=== PATIENT | female | born 1945 | race Caucasian/White ===

== ENCOUNTER → 2017-03-05 | Outpatient (CLI) | payer MEDICARE, OTHER ==
--- NOTE | 2017-03-05 09:23 | MR ---
EXAMINATION TYPE: MR brain wo con DATE OF EXAM: 03/05/2017 8:47 AM COMPARISON: Prior MRI brain July 22, 2016. HISTORY: abnormal findings, dizziness TECHNIQUE: Multiplanar, multisequence imaging of the brain and brainstem is performed without IV cont rast. FINDINGS: Diffusion weighted images demonstrate no evidence of a recent infarct or other diffusion abnormality. There is no extraaxial fluid collection or significant white matter signal abnormality. There is rede monstration of mild diffuse hydrocephalus not significantly changed from prior study. No significant sulcal effacement is seen. Degree of ventricular dilatation is stable. Fourth ventricle is not dilate d. The brain volume is age appropriate. Midline structures demonstrate persistent moderate atrophy of the posterior body and splenium of the corpus callosum. The craniocervical junction appears within normal limits. Normal vascular flow void s are present. The visualized sinuses are clear and the globes are intact. IMPRESSION: Mild diffuse hydrocephalus is not significantly changed from prior study. No significant new finding is seen.
== END | disposition home or self-care (01) ==
LOC: RADMRIMAIN 07:55
PROVIDERS: ATTEND Psychiatry & Neurology Neurology
DX: R93.8 Abnormal findings on diagnostic imaging of other specified body structures (principal)
CPT/HCPCS: 70551

== ENCOUNTER 2017-03-08 18:07 | Emergency (ER) | payer MEDICARE, OTHER ==
[2017-03-08] MEDS ORDERED: methylPREDNISolone SOD SUCCI 125 MG/2 ML VIAL IV STA (19:03)
[2017-03-08] MEDS ORDERED: IPRATROPIUM-ALBUTEROL 3 ML NEB INHALATION STA (19:04)
[2017-03-08] MEDS ORDERED: ACETAMINOPHEN TAB 325 MG TAB PO STA (19:21)
--- NOTE | 2017-03-08 19:28 | ED ---
General Adult HPI - General Chief complaint: Fever Stated complaint: cough,fever Source: patient Mode of arrival: ambulatory Limitations: no limitations - History of Present Illness Initial comments: 71-year-old female with past medical history of developmental delay presented for evaluation of fever and nonproductive cough since evening. Her sister states that they haven't taken her temperature home but that she has subjectively been complaining of fevers and chills with uncontrolled shaking and feeling very hot. There is also an associated headache and a cough is nonproductive. She's been taking 2 breathing treatments today without any improvement. She has asthma follows up with Dr. Ramirez. She denies any chest pain, nausea, vomiting, abdominal pain, diarrhea, dysuria. - Related Data Home Medications Medication Instructions Recorded Confirmed ALPRAZolam [Xanax] 0.25 mg PO Q8HR 12/14/14 03/08/17 Alendronate Sodium [Fosamax] 70 mg PO SA 12/14/14 03/08/17 Cholecalciferol [Vitamin D3] 1,000 unit PO AC-SUPPER 12/14/14 03/08/17 Furosemide [Lasix] 20 mg PO DAILY 12/14/14 03/08/17 Hydrocodone/Acetaminophen [[place] 1 tab PO Q4HR PRN 12/14/14 03/08/17 5-325] Meclizine [Antivert] 25 mg PO TID 12/14/14 03/08/17 Montelukast Sodium [Singulair] 10 mg PO HS 12/14/14 03/08/17 metFORMIN HCL [Glucophage] 500 mg PO DAILY PRN 12/14/14 03/08/17 Aspirin [Adult Low Dose Aspirin EC] 81 mg PO HS 02/12/16 03/08/17 Albuterol Nebulized [Ventolin 2.5 mg INHALATION RT-QID PRN 06/18/16 03/08/17 Nebulized] Atorvastatin [Lipitor] 20 mg PO HS 06/18/16 03/08/17 Omeprazole [PriLOSEC] 40 mg PO AC-SUPPER 06/18/16 03/08/17 Salmeterol Xinafoate [Serevent 1 puff INHALATION RT-BID 06/18/16 03/08/17 Diskus] Previous Rx's Medication Instructions Recorded Lisinopril [Zestril] 5 mg PO DAILY #30 tab 12/17/14 Doxycycline Hyclate [Vibramycin] 100 mg PO BID #20 cap 03/08/17 Allergies Allergy/AdvReac Type Severity Reaction Status Date / Time latex Allergy Rash/Hives Verified 03/08/17 19:20 sulfamethoxazole Allergy Unknown Verified 03/08/17 19:20 [From Bactrim] trimethoprim [From Bactrim] Allergy Unknown Verified 03/08/17 19:20 Review of Systems ROS Statement: Those systems with pertinent positive or pertinent negative responses have been documented in the HPI. ROS Other: All systems not noted in ROS Statement are negative. Constitutional: Denies: fever, chills Eyes: Denies: eye pain, vision change ENT: Reports: throat pain. Denies: ear pain, dental pain Respiratory: Reports: cough, dyspnea, wheezes. Denies: hemoptysis, stridor Cardiovascular: Denies: chest pain, palpitations Endocrine: Denies: fatigue, polydipsia, polyuria Gastrointestinal: Denies: abdominal pain, nausea, vomiting Genitourinary: Denies: urgency, dysuria Musculoskeletal: Denies: back pain, arthralgia Skin: Denies: rash, lesions Neurological: Denies: headache, weakness Past Medical History Past Medical History: Asthma, Diabetes Mellitus, GERD/Reflux, Hyperlipidemia, Hypertension Additional Past Medical History / Comment(s): 12/14/14 Past medical hx obtained thru medical records and pt's sisters as well as pt herself. Pt presented to [facility] ER with l/o L sided breast chest pain. Pain started this AM and pt's sister states. pt was pale as well. Pain waxed and waned. Discomfort increased with exertion however also increased with position changes at times. Pt had mild nausea. Other HX: NIDDM, vertigo, developmentally. delayed History of Any Multi-Drug Resistant Organisms: None Reported Past Surgical History: Appendectomy, Hysterectomy, Joint Replacement Additional Past Surgical History / Comment(s): bilateral knee replacement, bilateral carpal tunnel, tumor removed right thigh Past Anesthesia/Blood Transfusion Reactions: No Reported Reaction Additional Past Anesthesia/Blood Transfusion Reaction / Comment(s): Pt "alittle slow to wake up." Pt has never recieved blood. Past Psychological History: Anxiety Additional Psychological History / Comment(s): Pt is developementally delayed. Smoking Status: Never smoker Past Alcohol Use History: None Reported Past Drug Use History: None Reported - Past Family History Sister(s) Family Medical History: Cancer Additional Family Medical History / Comment(s): colon, lung, stomach Father Family Medical History: Coronary Artery Disease (CAD) Additional Family Medical History / Comment(s): Father at age 87yrs. He had an enlarged heart. Mother Family Medical History: Coronary Artery Disease (CAD) Additional Family Medical History / Comment(s): Mother at age 83yrs. She had an enlarged heart as well. General Exam Limitations: no limitations General appearance: alert, in no apparent distress Head exam: Present: atraumatic, normocephalic, normal inspection Eye exam: Present: normal appearance, PERRL, EOMI. Absent: scleral icterus, conjunctival injection, periorbital swelling ENT exam: Present: normal exam, mucous membranes moist Neck exam: Present: normal inspection. Absent: tenderness, meningismus, lymphadenopathy Respiratory exam: Present: normal lung sounds bilaterally, wheezes. Absent: respiratory distress, rales, rhonchi, stridor Cardiovascular Exam: Present: regular rate, normal rhythm, normal heart sounds. Absent: systolic murmur, diastolic murmur, rubs, gallop, clicks GI/Abdominal exam: Present: soft, normal bowel sounds. Absent: distended, tenderness, guarding, rebound, rigid Rectal exam: Present: deferred Extremities exam: Present: normal inspection, full ROM, normal capillary refill. Absent: tenderness, pedal edema, joint swelling, calf tenderness Back exam: Present: normal inspection Neurological exam: Present: alert, oriented X3, CN II-XII intact Psychiatric exam: Present: normal affect, normal mood Skin exam: Present: warm, dry, intact, normal color. Absent: rash Course Vital Signs 03/08/17 03/08/17 03/08/17 18:23 18:41 19:54 Temperature 102.0 F H Pulse Rate 96 100 Respiratory 18 20 Rate Blood Pressure 189/79 O2 Sat by Pulse 97 Oximetry 03/08/17 20:06 Temperature Pulse Rate 100 Respiratory Rate Blood Pressure O2 Sat by Pulse Oximetry EKG Findings - EKG Comments: EKG Findings:: Normal sinus rhythm with a ventricular rate of 92, SABRINA 148, QRS 94, QT/QTC 352/435. Medical Decision Making - Medical Decision Making 71-year-old female presented for evaluation of nonproductive cough and fevers for the last few days. She has a past medical history of asthma as well. On physical examination she has mild wheezes bilaterally but otherwise no significant abnormalities. Concern for influenza versus RSV given her sore throat versus pneumonia. We'll obtain labs, EKG, chest x-ray, and provide breathing treatments. And steroids. Tylenol provided for fever. Labs revealed no significant abnormalities and chest x-ray showed no acute process. The patient was reevaluated and had improvement in her symptoms following breathing treatment. She was informed of these results and through shared decision making it was determined that should be discharged with instructions to follow-up with her primary care physician and her telephony engineer Dr. Ramirez. She is further advised to return to this facility if her symptoms should worsen or persist. The patient and her sister acknowledged an understanding of this information and agreed with this plan of care. - Lab Data Result diagrams: 03/08/17 19:20 03/08/17 19:20 Lab Results 03/08/17 03/08/17 03/08/17 Range/Units 19:20 19:20 19:20 WBC 12.9 H (3.8-10.6) k/uL RBC 4.05 (3.80-5.40) m/uL Hgb 12.3 (11.4-16.0) gm/dL Hct 36.8 (34.0-46.0) % MCV 90.9 (80.0-100.0) fL MCH 30.5 (25.0-35.0) pg MCHC 33.5 (31.0-37.0) g/dL RDW 13.2 (11.5-15.5) % Plt Count 242 (150-450) k/uL Neutrophils % 85 % Lymphocytes % 8 % Monocytes % 4 % Eosinophils % 2 % Basophils % 0 % Neutrophils # 11.0 H (1.3-7.7) k/uL Lymphocytes # 1.1 (1.0-4.8) k/uL Monocytes # 0.5 (0-1.0) k/uL Eosinophils # 0.2 (0-0.7) k/uL Basophils # 0.0 (0-0.2) k/uL Sodium 138 (137-145) mmol/L Potassium 4.5 (3.5-5.1) mmol/L Chloride 105 (98-107) mmol/L Carbon Dioxide 24 (22-30) mmol/L Anion Gap 9 mmol/L BUN 17 (7-17) mg/dL Creatinine 0.52 (0.52-1.04) mg/dL Est GFR (MDRD) Af Amer >60 (>60 ml/min/1.73 sqM) Est GFR (MDRD) Non-Af >60 (>60 ml/min/1.73 sqM) Glucose 112 H (74-99) mg/dL Calcium 9.4 (8.4-10.2) mg/dL Influenza Type A RNA Not Detected (Not Detectd) Influenza Type B (PCR) Not Detected (Not Detectd) Group A Strep Rapid (Negative) 03/08/17 Range/Units 19:20 WBC (3.8-10.6) k/uL RBC (3.80-5.40) m/uL Hgb (11.4-16.0) gm/dL Hct (34.0-46.0) % MCV (80.0-100.0) fL MCH (25.0-35.0) pg MCHC (31.0-37.0) g/dL RDW (11.5-15.5) % Plt Count (150-450) k/uL Neutrophils % % Lymphocytes % % Monocytes % % Eosinophils % % Basophils % % Neutrophils # (1.3-7.7) k/uL Lymphocytes # (1.0-4.8) k/uL Monocytes # (0-1.0) k/uL Eosinophils # (0-0.7) k/uL Basophils # (0-0.2) k/uL Sodium (137-145) mmol/L Potassium (3.5-5.1) mmol/L Chloride (98-107) mmol/L Carbon Dioxide (22-30) mmol/L Anion Gap mmol/L BUN (7-17) mg/dL Creatinine (0.52-1.04) mg/dL Est GFR (MDRD) Af Amer (>60 ml/min/1.73 sqM) Est GFR (MDRD) Non-Af (>60 ml/min/1.73 sqM) Glucose (74-99) mg/dL Calcium (8.4-10.2) mg/dL Influenza Type A RNA (Not Detectd) Influenza Type B (PCR) (Not Detectd) Group A Strep Rapid Negative (Negative) Disposition Clinical Impression: Upper respiratory infection, Asthma exacerbation Disposition: HOME SELF-CARE Condition: Stable Instructions: Fever in Adults (ED), Upper Respiratory Infection (ED) Additional Instructions: Please use medication as discussed. Please follow up with family doctor if symptoms have not improved over the next two days. Please return to the emergency room if your symptoms increase or worsen or for any other concerns. Prescriptions: Doxycycline Hyclate [Vibramycin] 100 mg PO BID #20 cap Time of Disposition: 20:34
[2017-03-08 19:31] LABS: Basophils % (A) 0 %; CH 29.3; CHCM 32.4; Eosinophils # (A) 0.2 k/uL (0-0.7); Eosinophils % (A) 2 %; HCT 36.8 % (34.0-46.0); HDW 2.19; HGB 12.3 gm/dL (11.4-16.0); Luc # (Auto) 0.13; Luc % (Auto) 1; Lymphocytes # (A) 1.1 k/uL (1.0-4.8); Lymphocytes % (A) 8 %; MCH 30.5 pg (25.0-35.0); MCHC 33.5 g/dL (31.0-37.0); MCV 90.9 fL (80.0-100.0); Mean Platelet Volume 7.5; Monocytes # (A) 0.5 k/uL (0-1.0); Monocytes % (A) 4 %; Neutrophils % (A) 85 %; RBC 4.05 m/uL (3.80-5.40); RDW 13.2 % (11.5-15.5); WBC 12.9 k/uL (3.8-10.6); WBC (Perox) 13.71
--- NOTE | 2017-03-08 19:36 | XR ---
EXAMINATION TYPE: XR chest 2V DATE OF EXAM: 03/08/2017 7:31 PM COMPARISON: 12/19/2015 HISTORY: 71-year-old female with cough and congestion TECHNIQUE: PA and lateral views FINDINGS: Heart is upper limits of normal in size. Atherosclerotic arch calcifications. Diffuse interstitial pr ominence and mild hyperinflation. No consolidation or pleural effusion. IMPRESSION: Chronic parenchymal changes, possible underlying COPD. There may be chronic bronchitis/asthma as well . No acute infiltrate seen.
[2017-03-08 19:45] LABS: Anion Gap 9 mmol/L; Blood Urea Nitrogen 17 mg/dL (7-17); Calcium 9.4 mg/dL (8.4-10.2); Carbon Dioxide 24 mmol/L (22-30); Chloride 105 mmol/L (98-107); Glucose 112 mg/dL (74-99); Non-African American GFR(MDRD) >60 (>60 ml/min/1.73 sqM); Potassium 4.5 mmol/L (3.5-5.1); Sodium 138 mmol/L (137-145)
[2017-03-08 20:31] VITALS: BP 131/59; PULSE 106; RESP 18; TEMP 98.9
== END 2017-03-08 21:05 | disposition home or self-care (01) ==
LOC: EC 18:07
DX: J06.9 Acute upper respiratory infection, unspecified (principal); J45.901 Unspecified asthma with (acute) exacerbation; E11.9 Type 2 diabetes mellitus without complications; E78.5 Hyperlipidemia, unspecified; K21.9 Gastro-esophageal reflux disease without esophagitis; F41.9 Anxiety disorder, unspecified; Z91.040 Latex allergy status; Z88.2 Allergy status to sulfonamides; Z79.84 Long term (current) use of oral hypoglycemic drugs; Z79.82 Long term (current) use of aspirin; Z79.899 Other long term (current) drug therapy
CPT/HCPCS: 99284; 96374; 36415; 94640; 93005; 80048; 85025; 87081; 87430; 87502; 71020; J2930

== ENCOUNTER 2017-03-21 11:27 | Emergency (ER) | payer MEDICARE, OTHER ==
[2017-03-21 11:36] VITALS: RESP 20; TEMP 97.9
[2017-03-21] MEDS ORDERED: HYDROcodone/APAP 5-325MG 1 EACH TAB PO STA (12:04)
--- NOTE | 2017-03-21 12:18 | ED ---
General Adult HPI - General Chief complaint: Fall Stated complaint: Fall Time Seen by Provider: 03/21/17 11:39 Source: patient, family, RN notes reviewed, old records reviewed Mode of arrival: ambulatory Limitations: physical limitation - History of Present Illness Initial comments: This is a 72-year-old female to the ER for evaluation. This patient presents for evaluation of fall. Patient is on about this, has history of asthma hypertension and cholesterol diabetes. Patient's fall was mechanical sedation is tripped over a sprinkler head, patient does walk with a walker and fell on her right side on the cement a right shoulder and right hip and right head. Patient states her main complaint is shoulder pain, caregiver does state the patient has history of rotator cuff injury on that right shoulder. - Related Data Home Medications Medication Instructions Recorded Confirmed ALPRAZolam [Xanax] 0.25 mg PO Q8HR 12/14/14 03/21/17 Alendronate Sodium [Fosamax] 70 mg PO SA 12/14/14 03/21/17 Cholecalciferol [Vitamin D3] 1,000 unit PO AC-SUPPER 12/14/14 03/21/17 Furosemide [Lasix] 20 mg PO DAILY 12/14/14 03/21/17 Hydrocodone/Acetaminophen [[place] 1 tab PO Q4HR PRN 12/14/14 03/21/17 5-325] Meclizine [Antivert] 25 mg PO TID 12/14/14 03/21/17 Montelukast Sodium [Singulair] 10 mg PO HS 12/14/14 03/21/17 metFORMIN HCL [Glucophage] 500 mg PO DAILY PRN 12/14/14 03/21/17 Aspirin [Adult Low Dose Aspirin EC] 81 mg PO HS 02/12/16 03/21/17 Albuterol Nebulized [Ventolin 2.5 mg INHALATION RT-QID PRN 06/18/16 03/21/17 Nebulized] Atorvastatin [Lipitor] 20 mg PO HS 06/18/16 03/21/17 Omeprazole [PriLOSEC] 40 mg PO AC-SUPPER 06/18/16 03/21/17 Salmeterol Xinafoate [Serevent 1 puff INHALATION RT-BID 06/18/16 03/21/17 Diskus] Previous Rx's Medication Instructions Recorded Lisinopril [Zestril] 5 mg PO DAILY #30 tab 12/17/14 Doxycycline Hyclate [Vibramycin] 100 mg PO BID #20 cap 03/08/17 Allergies Allergy/AdvReac Type Severity Reaction Status Date / Time latex Allergy Rash/Hives Verified 03/21/17 11:52 sulfamethoxazole Allergy Unknown Verified 03/21/17 11:52 [From Bactrim] trimethoprim [From Bactrim] Allergy Unknown Verified 03/21/17 11:52 Review of Systems ROS Statement: Those systems with pertinent positive or pertinent negative responses have been documented in the HPI. ROS Other: All systems not noted in ROS Statement are negative. Past Medical History Past Medical History: Asthma, Diabetes Mellitus, GERD/Reflux, Hyperlipidemia, Hypertension Additional Past Medical History / Comment(s): 12/14/14 Past medical hx obtained thru medical records and pt's sisters as well as pt herself. Pt presented to [facility] ER with l/o L sided breast chest pain. Pain started this AM and pt's sister states. pt was pale as well. Pain waxed and waned. Discomfort increased with exertion however also increased with position changes at times. Pt had mild nausea. Other HX: NIDDM, vertigo, developmentally. delayed History of Any Multi-Drug Resistant Organisms: None Reported Past Surgical History: Appendectomy, Hysterectomy, Joint Replacement Additional Past Surgical History / Comment(s): bilateral knee replacement, bilateral carpal tunnel, tumor removed right thigh Past Anesthesia/Blood Transfusion Reactions: No Reported Reaction Additional Past Anesthesia/Blood Transfusion Reaction / Comment(s): Pt "alittle slow to wake up." Pt has never recieved blood. Past Psychological History: Anxiety Additional Psychological History / Comment(s): Pt is developementally delayed. Smoking Status: Never smoker Past Alcohol Use History: None Reported Past Drug Use History: None Reported - Past Family History Sister(s) Family Medical History: Cancer Additional Family Medical History / Comment(s): colon, lung, stomach Father Family Medical History: Coronary Artery Disease (CAD) Additional Family Medical History / Comment(s): Father at age 87yrs. He had an enlarged heart. Mother Family Medical History: Coronary Artery Disease (CAD) Additional Family Medical History / Comment(s): Mother at age 83yrs. She had an enlarged heart as well. General Exam Limitations: physical limitation General appearance: alert, in no apparent distress Head exam: Present: normocephalic, normal inspection. Absent: atraumatic ( Small hematoma parietal right scalp) Eye exam: Present: normal appearance, PERRL, EOMI. Absent: scleral icterus, conjunctival injection, periorbital swelling ENT exam: Present: normal exam, mucous membranes moist Neck exam: Present: normal inspection. Absent: tenderness, meningismus, lymphadenopathy Respiratory exam: Present: normal lung sounds bilaterally. Absent: respiratory distress, wheezes, rales, rhonchi, stridor Cardiovascular Exam: Present: regular rate, normal rhythm, normal heart sounds. Absent: systolic murmur, diastolic murmur, rubs, gallop, clicks GI/Abdominal exam: Present: soft, normal bowel sounds. Absent: distended, tenderness, guarding, rebound, rigid Extremities exam: Present: normal inspection, full ROM, normal capillary refill , other (Bony tenderness right shoulder, full range of motion). Absent: tenderness, pedal edema, joint swelling, calf tenderness Back exam: Present: normal inspection Neurological exam: Present: alert, oriented X3, CN II-XII intact Psychiatric exam: Present: normal affect, normal mood Skin exam: Present: warm, dry, intact, normal color. Absent: rash Course Vital Signs 03/21/17 11:33 Temperature 97.9 F Pulse Rate 79 Respiratory 20 Rate Blood Pressure 129/60 O2 Sat by Pulse 96 Oximetry - Reevaluation(s) Reevaluation #1: 03/21/17 12:17 Patient's pain at this point is improved Medical Decision Making - Medical Decision Making 71 female EMS status post fall, right shoulder right hip contusion, right scalp small scalp hematoma. Patient's symptoms at this time are improved. No traumatic injury noted on imaging. Patient will be discharged home - Radiology Data Radiology results: report reviewed (CT of his brain and C-spine, x-ray chest and pelvis and right shoulder are negative for traumatic injury), image reviewed Disposition Clinical Impression: Fall, Contusion of right shoulder, Head injuries Disposition: HOME SELF-CARE Condition: Good Instructions: Fall Prevention for Older Adults (ED), Head Injury (ED), Concussion (ED) Referrals: Mateus Engel DO [Primary Care Provider] - 1-2 days
--- NOTE | 2017-03-21 12:27 | XR ---
EXAMINATION TYPE: XR chest 1V DATE OF EXAM: 03/21/2017 12:20 PM COMPARISON: 03/08/2017 HISTORY: 71-year-old female with pain after fall today TECHNIQUE: Single frontal view of the chest is obtained. FINDINGS: Heart remains aligned mildly enlarged. Atherosclerotic calcifications within the aorta. Mild diffuse interstitial prominence and hyperinflation. No consolidation, pneumothorax, or pleural effusion. Ther e is rightward rotation which alters the normal contours. IMPRESSION: Rightward rotation. Chronic changes with COPD. No definite acute process.
--- NOTE | 2017-03-21 12:32 | XR ---
EXAMINATION TYPE: XR shoulder complete 3 views RT, XR pelvis AP view DATE OF EXAM: 03/21/2017 12:20 PM COMPARISON: 12/19/2015 HISTORY: 71-year-old female with pain after fall today FINDINGS: Right shoulder: As compared to 12/19/2015, there are progressive degenerative changes at the AC joint with marginal sp urring. Also progression in bony sclerosis and irregularity at the greater tuberosity. Subacromial sp bon is preserved without tendinous or bursal calcifications. No acute fracture or dislocation. Pelvis: Mild degenerative changes at both hips. There is some irregularity seen along the superior and infer ior left rami without any fracture lucency. SI joints appear intact as does the pubic symphysis. IMPRESSION: 1. Right shoulder: As compared to 12/19/2015, progressive degenerative changes at the AC joint and pro gression in bony changes at the greater tuberosity suggesting underlying chronic rotator cuff tendino jones. No acute osseous abnormality seen. 2. Pelvis: Correlate with patient's history for suspected remote healed fractures of the left superio r and inferior pubic rami. No acute osseous abnormality seen.
[2017-03-21 13:44] VITALS: BP 108/55; PULSE 75
--- NOTE | 2017-03-21 13:49 | CT ---
EXAMINATION TYPE: CT brain neo wo con DATE OF EXAM: 03/21/2017 1:13 PM COMPARISON: 06/18/2016 HISTORY: Patient fell today landing on right shoulder and hitting right side of head. Patient denies neck complaints. CT DLP: 1041.4 mGycm, Automated exposure control for dose reduction was used. CONTRAST: None CT of the brain is performed utilizing 3 mm thick sections through the posterior fossa and 3 mm thick sections through the remaining calvarium. Study is performed within 24 hours of arrival to the hospital. No abnormal hyperdensity is present to suggest an acute intracranial hemorrhage. No mass lesion is evident. No acute infarcts are evident. Ventricles and sulci are slightly prominent for the patient age. Paranasal sinuses and mastoid air cells within the [id number] are clear. IMPRESSIONS: 1. Mild age-related atrophy, stable from 06/18/2016 CT cervical spine. COMPARISON: None CT of the cervical spine is performed in the axial plane at 2 mm thick sections. Reconstructed image s in the coronal, and sagittal plane are reviewed on the computer. No acute fractures are evident. There appears to be some artifact on the reconstructed sagittal plane images through C3-4 and 5 Vertebral body alignment is normal. Mild degenerative disc changes are present through the cervical spine. Vertebral body heights are preserved. No spinal canal stenosis is evident. No neural foraminal stenosis is evident. IMPRESSIONS: 1. Mild degenerative changes cervical spine.
== END 2017-03-21 13:42 | disposition home or self-care (01) ==
LOC: EC 11:27
DX: S40.011A Contusion of right shoulder, initial encounter (principal); S09.90XA Unspecified injury of head, initial encounter; J45.909 Unspecified asthma, uncomplicated; K21.9 Gastro-esophageal reflux disease without esophagitis; E78.5 Hyperlipidemia, unspecified; I10 Essential (primary) hypertension; F41.9 Anxiety disorder, unspecified; Z79.82 Long term (current) use of aspirin; Z79.899 Other long term (current) drug therapy; Z88.2 Allergy status to sulfonamides; Z91.040 Latex allergy status; W01.198A Fall on same level from slipping, tripping and stumbling with subsequent striking against other object, initial encounter; Y92.89 Other specified places as the place of occurrence of the external cause
CPT/HCPCS: 70450; 71010; 72125; 72170; 99284

== ENCOUNTER → 2017-09-18 | Outpatient (CLI) | payer MEDICARE, OTHER ==
--- NOTE | 2017-09-18 13:02 | MR ---
EXAMINATION TYPE: MR brain wo con DATE OF EXAM: 09/18/2017 COMPARISON: 03/05/2017 HISTORY: transient alteration of awareness T1-weighted sagittal, T2, FLAIR, and diffusion axial, and T2 coronal coronal views of the brain are s ubmitted. There is no evidence of acute ischemia. Moderate generalized degenerative change with a slightly grea ter central component. No mass effect or midline shift. There are couple areas of scattered signal th e white matter which are nonspecific and too small to characterize. Craniocervical junction maintaine d. Sella turcica has a normal appearance. No cerebellopontine angle mass. Benign-appearing nasopharyngeal cysts are noted. Changes of chronic s inusitis noted. IMPRESSION: 1. No acute intracranial process. 2. Moderate degenerative change with a greater central component. Normal pressure hydrocephalus in th e differential diagnosis. Findings appear stable from the prior exam
== END | disposition home or self-care (01) ==
LOC: RADMRIMAIN 11:53
PROVIDERS: ATTEND Psychiatry & Neurology Neurology
DX: G31.9 Degenerative disease of nervous system, unspecified (principal); Z88.2 Allergy status to sulfonamides; Z88.8 Allergy status to other drugs, medicaments and biological substances
CPT/HCPCS: 70551

== ENCOUNTER 2018-01-13 18:39 | Emergency (ER) | payer MEDICARE, OTHER ==
[2018-01-13 19:01] VITALS: BP 144/63; PULSE 79; RESP 20; TEMP 98.3
[2018-01-13] MEDS ORDERED: TOPICAL SKIN ADHESIVE 1 EACH AMP TOPICAL ONE (19:44)
--- NOTE | 2018-01-13 20:03 | ED ---
General Adult HPI - General Chief complaint: Fall Stated complaint: Fell/eye laceration Time Seen by Provider: 01/13/18 19:32 Source: patient, RN notes reviewed Mode of arrival: wheelchair Limitations: no limitations - History of Present Illness Initial comments: Patient 72-year-old female who presents emergency room today with a chief complaint of slip on the ice. She does admit that she slipped falling down hitting the left side of her head causing a laceration just lateral to the left eyebrow. She states there is no loss conscious. She does admit to a headache currently rating a 1/10. She states there are no other symptoms. No other complaints. Patient denies any recent fever, chills, shortness of breath, chest pain, back pain, abdominal pain, nausea or vomiting, numbness or tingling, dysuria or hematuria, constipation or diarrhea, headaches or visual changes, or any other complaints. - Related Data Home Medications Medication Instructions Recorded Confirmed ALPRAZolam [Xanax] 0.25 mg PO Q8HR 12/14/14 12/25/17 Cholecalciferol [Vitamin D3] 1,000 unit PO AC-SUPPER 12/14/14 12/25/17 Furosemide [Lasix] 20 mg PO DAILY 12/14/14 12/25/17 Hydrocodone/Acetaminophen [[place] 1 tab PO Q4HR PRN 12/14/14 12/25/17 5-325] Meclizine [Antivert] 25 mg PO TID 12/14/14 12/25/17 Montelukast Sodium [Singulair] 10 mg PO HS 12/14/14 12/25/17 metFORMIN HCL [Glucophage] 500 mg PO DAILY PRN 12/14/14 12/25/17 Aspirin [Adult Low Dose Aspirin EC] 81 mg PO HS 02/12/16 12/25/17 Albuterol Nebulized [Ventolin 2.5 mg INHALATION RT-QID PRN 06/18/16 12/25/17 Nebulized] Atorvastatin [Lipitor] 20 mg PO HS 06/18/16 12/25/17 Omeprazole [PriLOSEC] 40 mg PO AC-SUPPER 06/18/16 12/25/17 Salmeterol Xinafoate [Serevent 1 puff INHALATION RT-BID 06/18/16 12/25/17 Diskus] Celecoxib [CeleBREX] 200 mg PO DAILY 12/25/17 12/25/17 Oseltamivir [Tamiflu] 75 mg PO Q12HR 12/25/17 12/25/17 predniSONE See Taper PO DIRECTED 12/25/17 12/25/17 Previous Rx's Medication Instructions Recorded Lisinopril [Zestril] 5 mg PO DAILY #30 tab 12/17/14 Amoxic-Pot Clav 875-125Mg 1 each PO Q12HR #10 tab 12/28/17 [Augmentin 875-125] predniSONE 10 mg PO DAILY #30 tab 12/28/17 Allergies Allergy/AdvReac Type Severity Reaction Status Date / Time latex Allergy Rash/Hives Verified 01/13/18 19:01 sulfamethoxazole Allergy Unknown Verified 01/13/18 19:01 [From Bactrim] trimethoprim [From Bactrim] Allergy Unknown Verified 01/13/18 19:01 Review of Systems ROS Statement: Those systems with pertinent positive or pertinent negative responses have been documented in the HPI. ROS Other: All systems not noted in ROS Statement are negative. Past Medical History Past Medical History: Asthma, Diabetes Mellitus, GERD/Reflux, Hyperlipidemia, Hypertension Additional Past Medical History / Comment(s): NIDDM, vertigo, developmentally delayed History of Any Multi-Drug Resistant Organisms: None Reported Past Surgical History: Appendectomy, Hysterectomy, Joint Replacement Additional Past Surgical History / Comment(s): bilateral knee replacement, right rotator cuff surgery, bilateral carpal tunnel, tumor removed right thigh Past Anesthesia/Blood Transfusion Reactions: No Reported Reaction Additional Past Anesthesia/Blood Transfusion Reaction / Comment(s): Pt "alittle slow to wake up." Pt has never recieved blood. Past Psychological History: Anxiety Smoking Status: Never smoker Past Alcohol Use History: None Reported Past Drug Use History: None Reported - Past Family History Sister(s) Family Medical History: Cancer Additional Family Medical History / Comment(s): colon, lung, stomach Father Family Medical History: Coronary Artery Disease (CAD) Additional Family Medical History / Comment(s): Father at age 87yrs. He had an enlarged heart. Mother Family Medical History: Coronary Artery Disease (CAD) Additional Family Medical History / Comment(s): Mother at age 83yrs. She had an enlarged heart as well. General Exam - General Exam Comments Initial Comments: General: The patient is awake and alert, in no distress, and does not appear acutely ill. Eye: Pupils are equal, round and reactive to light, extra-ocular movements are intact. No nystagmus. There is normal conjunctiva bilaterally. No signs of icterus. Ears, nose, mouth and throat: There are moist mucous membranes and no oral lesions. Neck: The neck is supple, there is no tenderness or JVD. Cardiovascular: There is a regular rate and rhythm. No murmur, rub or gallop is appreciated. Respiratory: Lungs are clear to auscultation, respirations are non-labored, breath sounds are equal. No wheezes, stridor, rales, or rhonchi. Musculoskeletal: Normal ROM, no tenderness. Strength 5/5. Sensation intact. Pulses equal bilaterally 2+. Neurological: A&O x 3. CN II-XII intact, There are no obvious motor or sensory deficits. Coordination appears grossly intact. Speech is normal. Normal finger nose testing. Normal rapid alternating movements. Strength 5/5 bilaterally both upper and lower extremity's. Skin: 1 cm linear laceration running on an angle to the left side of the face just lateral to the eyebrow. No deep tissue involvement. No active bleeding. Psychiatric: Cooperative, appropriate mood & affect, normal judgment. Limitations: no limitations Course Vital Signs 01/13/18 18:57 Temperature 98.3 F Pulse Rate 79 Respiratory 20 Rate Blood Pressure 144/63 O2 Sat by Pulse 96 Oximetry Procedures - Procedures Initial comment: 1 cm linear laceration to the left side of the face. No active bleeding. Laceration site was cleaned with saline and closed with Dermabond. Patient tolerated procedure well. Medical Decision Making - Medical Decision Making Patient states her headache is currently a 1/10. Denies any loss conscious. He is not on any anticoagulants. Options of CT of the head were discussed and has declined. They state they will return if any symptoms increase worsen. Patient was offered a tetanus shot but states they will follow-up the family doctor tomorrow to make sure that she is up-to-date. They state they believe that she does have a current tetanus. Patient's laceration was cleaned and closed here the emergency room Dermabond. Disposition Clinical Impression: Fall, Facial laceration Disposition: HOME SELF-CARE Condition: Good Instructions: Laceration (ED) Additional Instructions: Please allow the glue to fall off on its own over the next 3-5 days. Please watch for any signs of infection which may include increased pain times one, redness, fever or chills. Please return to emergency room if the symptoms increase or worsen or for any other concerns. Referrals: Mateus Engel DO [Primary Care Provider] - 1-2 days Time of Disposition: 20:04
== END 2018-01-13 20:18 | disposition home or self-care (01) ==
LOC: EC 18:39
DX: S01.81XA Laceration without foreign body of other part of head, initial encounter (principal); J45.909 Unspecified asthma, uncomplicated; E11.9 Type 2 diabetes mellitus without complications; K21.9 Gastro-esophageal reflux disease without esophagitis; E78.5 Hyperlipidemia, unspecified; I10 Essential (primary) hypertension; F41.9 Anxiety disorder, unspecified; Z96.653 Presence of artificial knee joint, bilateral; Z88.1 Allergy status to other antibiotic agents; Z88.2 Allergy status to sulfonamides; Z91.040 Latex allergy status; Z79.51 Long term (current) use of inhaled steroids; Z79.52 Long term (current) use of systemic steroids; Z79.82 Long term (current) use of aspirin; Z79.84 Long term (current) use of oral hypoglycemic drugs; Z79.899 Other long term (current) drug therapy; W00.0XXA Fall on same level due to ice and snow, initial encounter; Y92.89 Other specified places as the place of occurrence of the external cause
CPT/HCPCS: 12011; 99282

== ENCOUNTER 2019-04-02 21:15 | Emergency (ER) | payer MEDICARE, OTHER ==
--- NOTE | 2019-04-02 21:23 | ED ---
Chest Pain HPI - General Chief Complaint: Chest Pain Stated Complaint: CHEST PAIN Time Seen by Provider: 04/02/19 21:22 Source: patient Mode of arrival: wheelchair Limitations: no limitations - History of Present Illness Initial Comments: Keely Brady is a pleasant 73-year-old female with cognitive delay who is brought to the emergency department today for evaluation of epigastric discomfort. Patient reports that she ate a pulled pork sandwich for dinner she was in sitting watching TV when she experienced some pain at the base of her ribs. Pain was not associated with any palpitations, shortness of breath, lightheadedness, diaphoresis she did have some nausea but no vomiting. Pain improved prior to arrival the emergency department. However family decided to bring her to the ER for further evaluation. Patient does have a known history of a hiatal hernia, she has followed with Dr. Rangel gastroenterology in the past but not recently. - Related Data Home Medications Medication Instructions Recorded Confirmed RX: ALPRAZolam [Xanax] 0.25 mg PO Q8HR 12/14/14 04/02/19 RX: Cholecalciferol [Vitamin D3 1,000 unit PO AC-SUPPER 12/14/14 04/02/19 (25 Mcg = 1000 Iu)] RX: Furosemide [Lasix] 20 mg PO DAILY 12/14/14 04/02/19 RX: Meclizine [Antivert] 25 mg PO TID PRN 12/14/14 04/02/19 RX: Montelukast Sodium [Singulair] 10 mg PO HS 12/14/14 04/02/19 RX: metFORMIN HCL [Glucophage] 500 mg PO DAILY PRN 12/14/14 04/02/19 RX: Aspirin [Adult Low Dose 81 mg PO HS 02/12/16 04/02/19 Aspirin EC] RX: Albuterol Nebulized [Ventolin 2.5 mg INHALATION RT-QID PRN 06/18/16 04/02/19 Nebulized] RX: Atorvastatin [Lipitor] 20 mg PO HS 06/18/16 04/02/19 RX: Omeprazole [PriLOSEC] 40 mg PO AC-SUPPER 06/18/16 04/02/19 RX: Salmeterol Xinafoate [Serevent 1 puff INHALATION RT-BID 06/18/16 04/02/19 Diskus] RX: Celecoxib [CeleBREX] 200 mg PO DAILY 12/25/17 04/02/19 Previous Rx's Medication Instructions Recorded RX: Lisinopril [Zestril] 5 mg PO DAILY #30 tab 12/17/14 Allergies Allergy/AdvReac Type Severity Reaction Status Date / Time latex Allergy Rash/Hives Verified 04/02/19 22:15 sulfamethoxazole Allergy Unknown Verified 04/02/19 22:15 [From Bactrim] trimethoprim [From Bactrim] Allergy Unknown Verified 04/02/19 22:15 Review of Systems ROS Statement: Those systems with pertinent positive or pertinent negative responses have been documented in the HPI. ROS Other: All systems not noted in ROS Statement are negative. EKG Findings - EKG Comments: EKG Findings:: EKG was obtained due to complaint of lower chest and epigastric pain. EKG obtained at 2130, rate is 72 rhythm is sinus there is a normal axis there are normal intervals, ID 144, QRS 86, QTC is 422 there are no acute ST elevations or depressions there is no evidence of acute ischemia or infarction. Past Medical History Past Medical History: Asthma, Diabetes Mellitus, GERD/Reflux, Hyperlipidemia, Hypertension Additional Past Medical History / Comment(s): NIDDM, vertigo, developmentally delayed History of Any Multi-Drug Resistant Organisms: None Reported Past Surgical History: Appendectomy, Hysterectomy, Joint Replacement Additional Past Surgical History / Comment(s): bilateral knee replacement, right rotator cuff surgery, bilateral carpal tunnel, tumor removed right thigh Past Anesthesia/Blood Transfusion Reactions: No Reported Reaction Additional Past Anesthesia/Blood Transfusion Reaction / Comment(s): Pt "alittle slow to wake up." Pt has never recieved blood. Past Psychological History: Anxiety Smoking Status: Never smoker Past Alcohol Use History: None Reported Past Drug Use History: None Reported - Past Family History Sister(s) Family Medical History: Cancer Additional Family Medical History / Comment(s): colon, lung, stomach Father Family Medical History: Coronary Artery Disease (CAD) Additional Family Medical History / Comment(s): Father at age 87yrs. He had an enlarged heart. Mother Family Medical History: Coronary Artery Disease (CAD) Additional Family Medical History / Comment(s): Mother at age 83yrs. She had an enlarged heart as well. General Exam - General Exam Comments Initial Comments: Physical Exam GENERAL: Patient is well-developed and well-nourished. Patient is nontoxic and well-hydrated and is in no distress. Syndromic appearance HENT: Normocephalic, Atraumatic. EYES: PERRL, EOMI PULMONARY: Unlabored respirations. No audible rales rhonchi or wheezing was noted. CARDIOVASCULAR: There is a regular rate and rhythm without any murmurs gallops or rubs. ABDOMEN: Soft and nontender with normal bowel sounds. SKIN: Skin is clear with no lesions or rashes and otherwise unremarkable. : Deferred NEUROLOGIC: Patient is alert and oriented x3. Moving all extremities spontaneously MUSCULOSKELETAL: Normal extremities with adequate strength and full range of motion. PSYCHIATRIC: Normal psychiatric evaluation. 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 ] Respiratory 22 20 Rate Blood Pressure 136/63 O2 Sat by Pulse 98 Oximetry 04/02/19 23:45 Temperature 98.0 F Pulse Rate 72 Pulse Rate [ Revenue Analyst ] Respiratory 20 Rate Blood Pressure 121/56 O2 Sat by Pulse 99 Oximetry Chest Pain MDM - MDM pleasant 73 yo female with epigastric discomfort after eating pulled pork for dinner No associated SOB, palpitations, diaphoresis or lightheadedness Symptoms resolved prior to arrival patient resting comfortably now Cardiac workup was initiated this x-ray with no acute findings Labs were unremarkable Results were discussed with the patient and her family at bedside. I offered to keep the patient in observation giving her age and risk factors for evaluation of her discomfort and evaluation by cardiology. I advised them that they see her in observation overnight would include repeat labs every 6 hours to trend any change in her troponins which is the marker of cardiac stress. However patient family comfortable with the plan for discharge home as they feel that her pain was GI in nature. Return parameters were discussed all questions pertaining care were answered and the patient was discharged home in stable condition. Disposition Clinical Impression: Atypical chest pain Disposition: HOME SELF-CARE Condition: Stable Instructions (If sedation given, give patient instructions): Chest Pain (ED) Is patient prescribed a controlled substance at d/c from ED?: No Referrals: Mateus Engel DO [Primary Care Provider] - 1-2 days
[2019-04-02 21:48] VITALS: RESP 20
[2019-04-02 21:50] LABS: Basophils # (A) 0.1 k/uL (0-0.2); Basophils % (A) 1 %; Eosinophils # (A) 0.4 k/uL (0-0.7); Eosinophils % (A) 4 %; HCT 37.4 % (34.0-46.0); HGB 12.4 gm/dL (11.4-16.0); Lymphocytes % (A) 36 %; MCH 29.8 pg (25.0-35.0); MCHC 33.1 g/dL (31.0-37.0); Mean Platelet Volume 7.5; Monocytes # (A) 0.4 k/uL (0-1.0); Monocytes % (A) 5 %; Neutrophils # (A) 4.4 k/uL (1.3-7.7); Neutrophils % (A) 52 %; Platelet Count 235 k/uL (150-450); RBC 4.16 m/uL (3.80-5.40); RDW 13.2 % (11.5-15.5); WBC 8.5 k/uL (3.8-10.6)
[2019-04-02 21:58] LABS: INR 0.9 (<1.2); Partial Thromboplastin Time 25.5 sec (22.0-30.0); Prothrombin Time 9.7 sec (9.0-12.0)
--- NOTE | 2019-04-02 22:03 | XR ---
EXAMINATION TYPE: XR chest 2V DATE OF EXAM: 04/02/2019 COMPARISON: Chest x-ray December 11, 2018. HISTORY: Chest pain. TECHNIQUE: Frontal and lateral views of the chest are obtained. FINDINGS: There is chronic parenchymal change without suspicious focal air space opacity, pleural ef fusion, or pneumothorax seen. The cardiac silhouette size is mildly enlarged with atherosclerotic th oracic aorta. The osseous structures are demineralized. IMPRESSION: Cardiomegaly chronic parenchymal changes without acute pulmonary process.
[2019-04-02 22:04] LABS: Albumin 4.2 g/dL (3.5-5.0); Magnesium 1.9 mg/dL (1.6-2.3); Potassium 3.9 mmol/L (3.5-5.1); Total Bilirubin 0.4 mg/dL (0.2-1.3); Total Protein 6.6 g/dL (6.3-8.2)
[2019-04-02 23:46] VITALS: BP 121/56; PULSE 72; TEMP 98
== END 2019-04-02 23:50 | disposition home or self-care (01) ==
LOC: EC 21:15
DX: R07.89 Other chest pain (principal); J45.909 Unspecified asthma, uncomplicated; E11.9 Type 2 diabetes mellitus without complications; K21.9 Gastro-esophageal reflux disease without esophagitis; E78.5 Hyperlipidemia, unspecified; I10 Essential (primary) hypertension; G31.84 Mild cognitive impairment of uncertain or unknown etiology; F41.9 Anxiety disorder, unspecified; Z88.2 Allergy status to sulfonamides; Z91.040 Latex allergy status; Z79.1 Long term (current) use of non-steroidal anti-inflammatories (NSAID); Z79.82 Long term (current) use of aspirin; Z82.49 Family history of ischemic heart disease and other diseases of the circulatory system
CPT/HCPCS: 36415; 71046; 80053; 83690; 83735; 83880; 84484; 85025; 85610; 85730; 93005; 99284

== ENCOUNTER → 2019-05-12 | Outpatient (CLI) | payer MEDICARE, OTHER ==
[2019-05-12 23:37] LABS: T4, Free (Free Thyroxine) 1.5 ng/dL (0.80-1.80)
== END | disposition home or self-care (01) ==
LOC: LABWHC1 15:13
PROVIDERS: ATTEND Internal Medicine Critical Care Medicine
DX: R53.83 Other fatigue (principal)
CPT/HCPCS: 36415; 82533; 84439; 84443

== ENCOUNTER → 2019-05-19 | Outpatient (CLI) | payer MEDICARE, OTHER ==
[~2019-05-19] MED LIST: COSYNTROPIN 0.25 MG VIAL IVP NR; SODIUM CHLORIDE 0.9% 500 ML 500 ML in EMPTY BAG 1 BAG IV PRN
[2019-05-19 08:35] VITALS: BP 116/66; PULSE 66; RESP 16; TEMP 98
== END | disposition home or self-care (01) ==
LOC: PROCWHC3 08:10
PROVIDERS: ATTEND Internal Medicine Critical Care Medicine
DX: E27.40 Unspecified adrenocortical insufficiency (principal)
CPT/HCPCS: 82533; 82024; 96374; 36415; J0834

== ENCOUNTER → 2019-10-18 | Outpatient (CLI) | payer MEDICARE, OTHER | END | disposition home or self-care (01) | LOC: CPPFTMAIN 10:48 | PROVIDERS: ATTEND Internal Medicine Critical Care Medicine | DX: J44.9 Chronic obstructive pulmonary disease, unspecified (principal) | CPT/HCPCS: 94060; 94726; 94729 ==

== ENCOUNTER → 2019-12-14 | Outpatient (CLI) | payer MEDICARE, OTHER | END | disposition home or self-care (01) | LOC: LABWHC1 10:54 | PROVIDERS: ATTEND Orthopaedic Surgery | DX: M25.532 Pain in left wrist (principal); S52.552D Other extraarticular fracture of lower end of left radius, subsequent encounter for closed fracture with routine healing; E11.9 Type 2 diabetes mellitus without complications; E55.9 Vitamin D deficiency, unspecified | CPT/HCPCS: 36415; 82306 ==

== ENCOUNTER → 2020-07-14 | Day surgery (SDC) | payer MEDICARE, OTHER ==
[2020-07-12 14:46] VITALS: BMI 25.7
[~2020-07-14] MED LIST changes: -COSYNTROPIN 0.25 MG VIAL IVP NR; +LACTATED RINGERS 1,000 ML IV SCH; +LIDOCAINE 1% (10MG/ML) FOR IV START INTRADERMA PRN; +LIDOCAINE 1% INJ 10MG/ML (20 ML MDV) ONE; +PROPOFOL 10 MG/ML 20 ML VIAL IV ONE; -SODIUM CHLORIDE 0.9% 500 ML 500 ML in EMPTY BAG 1 BAG IV PRN
[2020-07-14 07:55] VITALS: RESP 16; TEMP 97.9
[2020-07-14 07:56] LABS: Glucose,Whole Blood 126 mg/dL (75-99)
--- NOTE | 2020-07-14 08:32 | P.PCN ---
Date of Procedure: 07/14/20 Procedure(s) Performed: BRIEF HISTORY: Patient is a 74-year-old, pleasant, white female scheduled for an upper endoscopy as a part of evaluation of long-standing history of gerd. PROCEDURE PERFORMED: Esophagogastroduodenoscopy with biopsy. PREOPERATIVE DIAGNOSIS: Long-standing history of GERD. IV sedation per anesthesia. PROCEDURE: After informed consent was obtained, the patient was brought into the endoscopy unit. IV sedation was administered by Anesthesia under continuous monitoring. Initially the Olympus GIF-140 video endoscope was inserted into the mouth. Esophagus intubated without any difficulty. It was gradually advanced into the stomach and duodenum and carefully examined. The bulb and the second part of the duodenum appeared normal. The scope at this time was withdrawn to the stomach, adequately insufflated with air, and upon careful examination, mucosa of the antrum, had mild gastritis and biopsies were done from this area. The body, cardia and the fundus appeared normal. The scope was then withdrawn into the esophagus. The GE junction was located at 33 cm from the incisors. Small sliding type hiatal hernia noted. They revealed linear erosions in the distal esophagus consistent with LA grade B reflux esophagitis. Rest of esophagus appeared normal and the patient tolerated the procedure Impression: 1. Linear Erosions in the distal esophagus consistent with LA grade B reflux esophagitis. 2. Mild antral gastritis. 3. Small sliding Hiatal hernia RECOMMENDATIONS: The findings of this examination were discussed with the patient as well as her family. She was advised to follow with the biopsy results. She will continue with Prilosec 20 mg daily and follow antireflux measures..
[2020-07-14 08:51] VITALS: BP 171/78; PULSE 69
== END ==
LOC: ORWHC2ENDO 07:27
PROVIDERS: ATTEND Internal Medicine Gastroenterology
DX: K29.50 Unspecified chronic gastritis without bleeding (principal); K22.10 Ulcer of esophagus without bleeding; K21.9 Gastro-esophageal reflux disease without esophagitis; K44.9 Diaphragmatic hernia without obstruction or gangrene; I10 Essential (primary) hypertension; J45.909 Unspecified asthma, uncomplicated; G47.33 Obstructive sleep apnea (adult) (pediatric); E11.9 Type 2 diabetes mellitus without complications; R62.50 Unspecified lack of expected normal physiological development in childhood; Z79.899 Other long term (current) drug therapy; Z79.52 Long term (current) use of systemic steroids; Z79.1 Long term (current) use of non-steroidal anti-inflammatories (NSAID); Z79.84 Long term (current) use of oral hypoglycemic drugs; Z79.02 Long term (current) use of antithrombotics/antiplatelets; Z97.2 Presence of dental prosthetic device (complete) (partial); Z91.040 Latex allergy status; Z88.2 Allergy status to sulfonamides; Z99.89 Dependence on other enabling machines and devices; Z90.49 Acquired absence of other specified parts of digestive tract; Z90.710 Acquired absence of both cervix and uterus; Z96.653 Presence of artificial knee joint, bilateral; Z98.890 Other specified postprocedural states; Z87.39 Personal history of other diseases of the musculoskeletal system and connective tissue
CPT/HCPCS: 88305; 43239; J2001; J2704

== ENCOUNTER 2021-06-11 10:25 | Emergency (ER) | payer MEDICARE, OTHER ==
[2021-06-11 10:49] VITALS: BP 134/64; PULSE 84; RESP 16; TEMP 97.5
--- NOTE | 2021-06-11 11:17 | ED ---
ENT HPI - General Chief complaint: ENT Stated complaint: swallowed hearing aide battery Time Seen by Provider: 06/11/21 10:52 Source: patient, family, RN notes reviewed Mode of arrival: ambulatory Limitations: no limitations - History of Present Illness Initial comments: 75-year-old female presents emergency Department with concerns of possible swelling hearing aid battery. She states is sitting on the table with her medications she states she scooped up her medications could not find the battery. Patient states that she is unsure if she did or not. She has no other complaints. - Related Data Home Medications Medication Instructions Recorded Confirmed ALPRAZolam [Xanax] 0.25 mg PO BID 12/14/14 07/12/20 Cholecalciferol [Vitamin D3 (25 1,000 unit PO AC-SUPPER 12/14/14 07/12/20 Mcg = 1000 Iu)] Furosemide [Lasix] 20 mg PO DAILY 12/14/14 07/12/20 Meclizine [Antivert] 25 mg PO TID 12/14/14 07/12/20 Montelukast Sodium [Singulair] 10 mg PO HS 12/14/14 07/12/20 metFORMIN HCL [Glucophage] 500 mg PO BID 12/14/14 07/12/20 Albuterol Nebulized [Ventolin 2.5 mg INHALATION RT-QID PRN 06/18/16 07/12/20 Nebulized] Atorvastatin [Lipitor] 20 mg PO HS 06/18/16 07/12/20 Salmeterol Xinafoate [Serevent 1 puff INHALATION RT-BID 06/18/16 07/12/20 Diskus] Celecoxib [CeleBREX] 200 mg PO DAILY 12/25/17 07/12/20 Sucralfate [Carafate] 1 gm PO TID 05/19/19 07/12/20 Hydrocortisone 10 mg PO HS 07/12/20 07/12/20 Hydrocortisone [Cortef] 20 mg PO QAM 07/12/20 07/12/20 Latanoprost Ophth [Xalatan 0.005%] 1 drops RIGHT EYE HS 07/12/20 07/12/20 Previous Rx's Medication Instructions Recorded lisinopriL [Zestril] 5 mg PO DAILY #30 tab 12/17/14 Allergies Allergy/AdvReac Type Severity Reaction Status Date / Time latex Allergy Rash/Hives Verified 06/11/21 10:49 sulfamethoxazole Allergy Unknown Verified 06/11/21 10:49 [From Bactrim] trimethoprim [From Bactrim] Allergy Unknown Verified 06/11/21 10:49 Review of Systems ROS Statement: Those systems with pertinent positive or pertinent negative responses have been documented in the HPI. ROS Other: All systems not noted in ROS Statement are negative. Past Medical History Past Medical History: Asthma, Diabetes Mellitus, Eye Disorder, GERD/Reflux, Hyperlipidemia, Hypertension, Sleep Apnea/CPAP/BIPAP Additional Past Medical History / Comment(s): NIDDM, vertigo, developmentally delayed, having sharp abd. pain recently, glaucoma, not sure why patient takes steroids-states has been taking for a while History of Any Multi-Drug Resistant Organisms: None Reported Past Surgical History: Appendectomy, Hysterectomy, Joint Replacement Additional Past Surgical History / Comment(s): bilateral knee replacement, right rotator cuff surgery, bilateral carpal tunnel, tumor removed right thigh, foot surg. Past Anesthesia/Blood Transfusion Reactions: No Reported Reaction Additional Past Anesthesia/Blood Transfusion Reaction / Comment(s): Pt "alittle slow to wake up." Pt has never recieved blood. Past Psychological History: Anxiety Smoking Status: Never smoker - Past Family History Sister(s) Family Medical History: Cancer Additional Family Medical History / Comment(s): colon, lung, stomach General Exam Limitations: no limitations General appearance: alert, in no apparent distress Head exam: Present: atraumatic, normocephalic, normal inspection Respiratory exam: Present: normal lung sounds bilaterally. Absent: respiratory distress, wheezes, rales, rhonchi, stridor Cardiovascular Exam: Present: regular rate, normal rhythm, normal heart sounds. Absent: systolic murmur, diastolic murmur, rubs, gallop, clicks Course Vital Signs 06/11/21 10:46 Temperature 97.5 F L Pulse Rate 84 Respiratory 16 Rate Blood Pressure 134/64 O2 Sat by Pulse 99 Oximetry Medical Decision Making - Medical Decision Making Battery is found to be in the small intestine, is not in the esophagus or stomach I discussed with Dr. Astudillo and which she recommended giving magnesium citrate to help pass quicker. Return parameters discussed. Disposition Clinical Impression: Ingestion of button battery Disposition: HOME SELF-CARE Condition: Stable Instructions (If sedation given, give patient instructions): Foreign Body Ingestion (ED) Additional Instructions: Please return to the Emergency Department if symptoms worsen or any other concerns. Is patient prescribed a controlled substance at d/c from ED?: No Referrals: Mateus Engel DO [Primary Care Provider] - 1-2 days Time of Disposition: 12:46
--- NOTE | 2021-06-11 11:52 | XR ---
EXAMINATION TYPE: XR chest 1V DATE OF EXAM: 06/11/2021 COMPARISON: 04/02/2019 HISTORY: Swallowed part of her hearing aid TECHNIQUE: Single frontal view of the chest is obtained. FINDINGS: Lungs are hyperinflated but clear. Cardiac silhouette is not enlarged. No definite radiopaque foreign bodies are seen overlying the chest. IMPRESSION: No acute process.
--- NOTE | 2021-06-11 11:54 | XR ---
EXAMINATION TYPE: XR KUB DATE OF EXAM: 06/11/2021 11:44 AM CLINICAL HISTORY: Swallowed part of hearing aid TECHNIQUE: Single supine KUB image of the abdomen is obtained. COMPARISON: None. FINDINGS: Scattered gas is seen in non-distended small bowel loops. Gas and fecal material is seen in non-distended colon. There is a 0.9 cm ovoid radiopaque density overlying the left mid paraspinal region in the abdomen. IMPRESSION: There is a 0.9 cm ovoid radiopaque density overlying the left mid paraspinal region in the abdomen. T his is likely the foreign body that the patient reports swallowing and may represent a "button batter y."
[2021-06-11] MEDS ORDERED: MAGNESIUM CITRATE 296 ML BOTTLE PO ONE (12:45)
== END 2021-06-11 13:01 | disposition home or self-care (01) ==
LOC: EC 10:25
DX: T18.3XXA Foreign body in small intestine, initial encounter (principal); J45.909 Unspecified asthma, uncomplicated; I10 Essential (primary) hypertension; E78.5 Hyperlipidemia, unspecified; E11.39 Type 2 diabetes mellitus with other diabetic ophthalmic complication; H40.9 Unspecified glaucoma; Z91.040 Latex allergy status; Z88.2 Allergy status to sulfonamides; Z79.84 Long term (current) use of oral hypoglycemic drugs; Z79.899 Other long term (current) drug therapy
CPT/HCPCS: 71045; 74018; 99283

== ENCOUNTER 2021-09-29 07:50 | Inpatient (IN) | payer MEDICARE, OTHER ==
[2021-09-29] MEDS ORDERED: methylPREDNISolone SOD SUCCI 125 MG/2 ML VIAL IV STA (08:21)
[2021-09-29] MEDS ORDERED: MAGNESIUM SULFATE-D5W PMX 1 GM in DEXTROSE/WATER 1 100ML.BAG IVPB ONE (08:21)
[2021-09-29] MEDS ORDERED: ALBUTEROL HFA INHALER INHALATION STA (08:21)
--- NOTE | 2021-09-29 08:35 | ED ---
SOB HPI - General Chief Complaint: Shortness of Breath Stated Complaint: SOB Time Seen by Provider: 09/29/21 08:00 Source: patient Mode of arrival: EMS Limitations: no limitations - History of Present Illness Initial Comments: 76-year-old female with past medical history of asthma presents to the emergency department with shortness of breath. Sister is at bedside and helps provide the history. Sister became sick and patient began having symptoms on . She has had wheezing and a cough with congestion. Denies any fevers. She took 2 breathing treatments last night without improvement in her symptoms. No nausea or vomiting. No diarrhea. Patient denies any chest pain. No previous history of cardiac disease. Denies history of congestive heart failure. No history of DVT or PE. No lower extremity swelling. She sees Dr. Ramirez and takes daily steroids. No other alleviating, precipitating or modifying factors - Related Data Home Medications Medication Instructions Recorded Confirmed ALPRAZolam [Xanax] 0.25 mg PO HS 12/14/14 09/29/21 Cholecalciferol [Vitamin D3 (25 50 mcg PO DAILY 12/14/14 09/29/21 Mcg = 1000 Iu)] Furosemide [Lasix] 20 mg PO DAILY 12/14/14 09/29/21 Meclizine [Antivert] 25 mg PO TID 12/14/14 09/29/21 Montelukast Sodium [Singulair] 10 mg PO DAILY 12/14/14 09/29/21 metFORMIN HCL [Glucophage] 500 mg PO AC-TID 12/14/14 09/29/21 Albuterol Nebulized [Ventolin 2.5 mg INHALATION RT-QID PRN 06/18/16 09/29/21 Nebulized] Salmeterol Xinafoate [Serevent 1 puff INHALATION RT-BID 06/18/16 09/29/21 Diskus] Sucralfate [Carafate] 1 gm PO TID 05/19/19 09/29/21 Hydrocortisone 10 mg PO HS 07/12/20 09/29/21 Hydrocortisone [Cortef] 20 mg PO DAILY 07/12/20 09/29/21 Latanoprost Ophth [Xalatan 0.005%] 1 drops RIGHT EYE HS 07/12/20 09/29/21 Alendronate Sodium [Binosto] 70 mg PO YOUNG 09/29/21 09/29/21 Ketorolac 0.5% Ophth Soln [Acular 1 drop RIGHT EYE QID 09/29/21 09/29/21 0.5%] Multivitamins, Thera [Multivitamin 1 tab PO DAILY 09/29/21 09/29/21 (formulary)] Omeprazole 20 mg PO DAILY 09/29/21 09/29/21 traMADol HCL 50 mg PO BID PRN 09/29/21 09/29/21 Previous Rx's Medication Instructions Recorded Apixaban [Eliquis] 5 mg PO BID #60 tab 10/03/21 Sulfamethoxazole/Trimethoprim 1 each PO BID 7 Days #14 tablet 10/08/21 [Bactrim DS 800-160 mg] predniSONE 0 mg PO DIRECTED 12 Days #30 tab 10/08/21 Amiodarone [Cordarone] 200 mg PO BID #180 tab 10/09/21 Aspirin 81 mg PO DAILY tab 10/09/21 Atorvastatin [Lipitor] 40 mg PO DAILY #30 tab 10/09/21 Metoprolol Tartrate [Lopressor] 25 mg PO BID #60 tab 10/09/21 Nitroglycerin Sl Tabs [Nitrostat] 0.4 mg SUBLINGUAL Q5M PRN #100 tab 10/09/21 Spironolactone [Aldactone] 25 mg PO DAILY #30 tab 10/09/21 lisinopriL [Zestril] 2.5 mg PO DAILY #30 tab 10/09/21 Allergies Allergy/AdvReac Type Severity Reaction Status Date / Time latex Allergy Rash/Hives Verified 09/29/21 11:20 sulfamethoxazole Allergy Unknown Verified 09/29/21 11:20 [From Bactrim] trimethoprim [From Bactrim] Allergy Unknown Verified 09/29/21 11:20 Review of Systems ROS Statement: Those systems with pertinent positive or pertinent negative responses have been documented in the HPI. ROS Other: All systems not noted in ROS Statement are negative. Past Medical History Past Medical History: Asthma, Diabetes Mellitus, Eye Disorder, GERD/Reflux, Hyperlipidemia, Hypertension, Sleep Apnea/CPAP/BIPAP Additional Past Medical History / Comment(s): NIDDM, vertigo, developmentally delayed, having sharp abd. pain recently, glaucoma, not sure why patient takes steroids-states has been taking for a while History of Any Multi-Drug Resistant Organisms: None Reported Past Surgical History: Appendectomy, Hysterectomy, Joint Replacement Additional Past Surgical History / Comment(s): bilateral knee replacement, right rotator cuff surgery, bilateral carpal tunnel, tumor removed right thigh, foot surg. Past Anesthesia/Blood Transfusion Reactions: No Reported Reaction Additional Past Anesthesia/Blood Transfusion Reaction / Comment(s): Pt "alittle slow to wake up." Pt has never recieved blood. Past Psychological History: Anxiety Smoking Status: Never smoker Past Alcohol Use History: None Reported Past Drug Use History: None Reported - Past Family History Sister(s) Family Medical History: Cancer Additional Family Medical History / Comment(s): colon, lung, stomach General Exam Limitations: no limitations General appearance: alert, in distress Head exam: Present: atraumatic, normocephalic, normal inspection Eye exam: Present: normal appearance, PERRL, EOMI. Absent: scleral icterus, conjunctival injection, periorbital swelling ENT exam: Present: normal exam, mucous membranes moist Neck exam: Present: normal inspection. Absent: tenderness, meningismus, lymphadenopathy Respiratory exam: Present: respiratory distress, wheezes, accessory muscle use. Absent: rales, rhonchi, stridor Cardiovascular Exam: Present: regular rate, normal rhythm, normal heart sounds. Absent: systolic murmur, diastolic murmur, rubs, gallop, clicks GI/Abdominal exam: Present: soft, normal bowel sounds. Absent: distended, tenderness, guarding, rebound, rigid Extremities exam: Present: normal inspection, full ROM, normal capillary refill. Absent: tenderness, pedal edema, joint swelling, calf tenderness Back exam: Present: normal inspection Neurological exam: Present: alert, oriented X3, CN II-XII intact Psychiatric exam: Present: normal affect, normal mood Skin exam: Present: warm, dry, intact, normal color. Absent: rash Course Vital Signs 09/29/21 09/29/21 09/29/21 07:56 07:59 08:00 Temperature 99.3 F Pulse Rate 102 H 101 H Pulse Rate [ Pulse Oximetery ] Respiratory 18 Rate Blood Pressure 180/96 180/96 180/96 Blood Pressure [Right Arm Supine] O2 Sat by Pulse 93 L 92 L 100 Oximetry 09/29/21 09/29/21 09/29/21 09:00 09:11 09:14 Temperature Pulse Rate 120 H 118 H Pulse Rate [ Pulse Oximetery ] Respiratory 44 H 44 H Rate Blood Pressure 180/96 175/90 Blood Pressure [Right Arm Supine] O2 Sat by Pulse 83 L 95 Oximetry 09/29/21 09/29/21 09/29/21 10:00 10:27 11:00 Temperature Pulse Rate 105 H 98 107 H Pulse Rate [ Pulse Oximetery ] Respiratory 34 H 22 Rate Blood Pressure 208/109 138/89 138/89 Blood Pressure [Right Arm Supine] O2 Sat by Pulse 93 L 94 L 92 L Oximetry 09/29/21 09/29/21 09/29/21 11:25 11:35 11:45 Temperature Pulse Rate 106 H 106 H 105 H Pulse Rate [ Pulse Oximetery ] Respiratory 28 H Rate Blood Pressure 118/73 Blood Pressure [Right Arm Supine] O2 Sat by Pulse 90 L Oximetry 09/29/21 09/29/21 09/29/21 11:49 12:00 13:00 Temperature Pulse Rate 110 H 98 Pulse Rate [ Pulse Oximetery ] Respiratory 24 24 Rate Blood Pressure 118/73 122/82 Blood Pressure [Right Arm Supine] O2 Sat by Pulse 94 L 92 L Oximetry 09/29/21 09/29/21 09/29/21 14:00 14:20 15:00 Temperature Pulse Rate 96 96 93 Pulse Rate [ Pulse Oximetery ] Respiratory 22 28 H 24 Rate Blood Pressure 122/78 119/71 118/73 Blood Pressure [Right Arm Supine] O2 Sat by Pulse 92 L 98 98 Oximetry 09/29/21 16:00 Temperature 97.5 F L Pulse Rate 91 Pulse Rate [ 107 H Pulse Oximetery ] Respiratory 32 H Rate Blood Pressure 133/92 Blood Pressure 120/64 [Right Arm Supine] O2 Sat by Pulse 98 Oximetry Medical Decision Making - Medical Decision Making Upon arrival patient was placed into room 3. A thorough history and physical exam was performed. IV is established laboratory studies were conducted. Patient was given an albuterol inhaler, 125 of Solu-Medrol and magnesium for her diffuse wheezing. She is swabbed for Covid. Laboratory studies are reviewed and demonstrates a sodium of 128. Troponin 0.414. Flu and Covid not detected. Chest x-ray demonstrates COPD changes. She is given a DuoNeb breathing treatment at this time. She has worsening shortness of breath and was placed on bipap. Did recommend admission. Will trend her troponins at this time. Heparin gtt ordered. Spoke with Dr. Schmidt who will admit the patient. She remained in stable condition awaiting a bed - Lab Data Result diagrams: 10/08/21 05:40 10/08/21 05:40 Lab Results 09/29/21 09/29/21 09/29/21 Range/Units 08:29 08:29 08:29 WBC 9.9 (3.8-10.6) k/uL RBC 4.11 (3.80-5.40) m/uL Hgb 12.6 (11.4-16.0) gm/dL Hct 37.6 (34.0-46.0) % MCV 91.5 (80.0-100.0) fL MCH 30.6 (25.0-35.0) pg MCHC 33.5 (31.0-37.0) g/dL RDW 12.6 (11.5-15.5) % Plt Count 213 (150-450) k/uL MPV 7.5 Neutrophils % 83 % Lymphocytes % 11 % Monocytes % 5 % Eosinophils % 0 % Basophils % 1 % Neutrophils # 8.2 H (1.3-7.7) k/uL Lymphocytes # 1.1 (1.0-4.8) k/uL Monocytes # 0.5 (0-1.0) k/uL Eosinophils # 0.0 (0-0.7) k/uL Basophils # 0.1 (0-0.2) k/uL PT 10.2 (9.0-12.0) sec INR 0.9 (<1.2) APTT 22.9 (22.0-30.0) sec Sodium (137-145) mmol/L Potassium (3.5-5.1) mmol/L Chloride (98-107) mmol/L Carbon Dioxide (22-30) mmol/L Anion Gap mmol/L BUN (7-17) mg/dL Creatinine (0.52-1.04) mg/dL Est GFR (CKD-EPI)AfAm (>60 ml/min/1.73 sqM) Est GFR (CKD-EPI)NonAf (>60 ml/min/1.73 sqM) Glucose (74-99) mg/dL Plasma Lactic Acid Jose De Jesus (0.7-2.0) mmol/L Calcium (8.4-10.2) mg/dL Magnesium (1.6-2.3) mg/dL Total Bilirubin (0.2-1.3) mg/dL AST (14-36) U/L ALT (4-34) U/L Alkaline Phosphatase (38-126) U/L Troponin I (0.000-0.034) ng/mL NT-Pro-B Natriuret Pep pg/mL Total Protein (6.3-8.2) g/dL Albumin (3.5-5.0) g/dL Influenza Type A (PCR) Not Detected (Not Detectd) Influenza Type B (PCR) Not Detected (Not Detectd) RSV (PCR) Not Detected (Not Detectd) SARS-CoV-2 (PCR) Not Detected (Not Detectd) 09/29/21 09/29/21 09/29/21 Range/Units 08:29 08:29 08:29 WBC (3.8-10.6) k/uL RBC (3.80-5.40) m/uL Hgb (11.4-16.0) gm/dL Hct (34.0-46.0) % MCV (80.0-100.0) fL MCH (25.0-35.0) pg MCHC (31.0-37.0) g/dL RDW (11.5-15.5) % Plt Count (150-450) k/uL MPV Neutrophils % % Lymphocytes % % Monocytes % % Eosinophils % % Basophils % % Neutrophils # (1.3-7.7) k/uL Lymphocytes # (1.0-4.8) k/uL Monocytes # (0-1.0) k/uL Eosinophils # (0-0.7) k/uL Basophils # (0-0.2) k/uL PT (9.0-12.0) sec INR (<1.2) APTT (22.0-30.0) sec Sodium 128 L (137-145) mmol/L Potassium 3.7 (3.5-5.1) mmol/L Chloride 98 (98-107) mmol/L Carbon Dioxide 21 L (22-30) mmol/L Anion Gap 9 mmol/L BUN 15 (7-17) mg/dL Creatinine 0.54 (0.52-1.04) mg/dL Est GFR (CKD-EPI)AfAm >90 (>60 ml/min/1.73 sqM) Est GFR (CKD-EPI)NonAf >90 (>60 ml/min/1.73 sqM) Glucose 191 H (74-99) mg/dL Plasma Lactic Acid Jose De Jesus 1.5 (0.7-2.0) mmol/L Calcium 8.6 (8.4-10.2) mg/dL Magnesium 1.6 (1.6-2.3) mg/dL Total Bilirubin 0.7 (0.2-1.3) mg/dL AST 40 H (14-36) U/L ALT 35 H (4-34) U/L Alkaline Phosphatase 59 (38-126) U/L Troponin I 0.414 H* (0.000-0.034) ng/mL NT-Pro-B Natriuret Pep pg/mL Total Protein 6.0 L (6.3-8.2) g/dL Albumin 3.6 (3.5-5.0) g/dL Influenza Type A (PCR) (Not Detectd) Influenza Type B (PCR) (Not Detectd) RSV (PCR) (Not Detectd) SARS-CoV-2 (PCR) (Not Detectd) 09/29/21 Range/Units 08:29 WBC (3.8-10.6) k/uL RBC (3.80-5.40) m/uL Hgb (11.4-16.0) gm/dL Hct (34.0-46.0) % MCV (80.0-100.0) fL MCH (25.0-35.0) pg MCHC (31.0-37.0) g/dL RDW (11.5-15.5) % Plt Count (150-450) k/uL MPV Neutrophils % % Lymphocytes % % Monocytes % % Eosinophils % % Basophils % % Neutrophils # (1.3-7.7) k/uL Lymphocytes # (1.0-4.8) k/uL Monocytes # (0-1.0) k/uL Eosinophils # (0-0.7) k/uL Basophils # (0-0.2) k/uL PT (9.0-12.0) sec INR (<1.2) APTT (22.0-30.0) sec Sodium (137-145) mmol/L Potassium (3.5-5.1) mmol/L Chloride (98-107) mmol/L Carbon Dioxide (22-30) mmol/L Anion Gap mmol/L BUN (7-17) mg/dL Creatinine (0.52-1.04) mg/dL Est GFR (CKD-EPI)AfAm (>60 ml/min/1.73 sqM) Est GFR (CKD-EPI)NonAf (>60 ml/min/1.73 sqM) Glucose (74-99) mg/dL Plasma Lactic Acid Jose De Jesus (0.7-2.0) mmol/L Calcium (8.4-10.2) mg/dL Magnesium (1.6-2.3) mg/dL Total Bilirubin (0.2-1.3) mg/dL AST (14-36) U/L ALT (4-34) U/L Alkaline Phosphatase (38-126) U/L Troponin I (0.000-0.034) ng/mL NT-Pro-B Natriuret Pep 129 pg/mL Total Protein (6.3-8.2) g/dL Albumin (3.5-5.0) g/dL Influenza Type A (PCR) (Not Detectd) Influenza Type B (PCR) (Not Detectd) RSV (PCR) (Not Detectd) SARS-CoV-2 (PCR) (Not Detectd) - EKG Data EKG Comments: EKG demonstrates a sinus tachycardia with a ventricular rate of 102. NV interval 154. QRS 96. QTC of 453. ST depression in 2, 3, aVF. Isolated ST elevation in V2. Repeat EKG completed at 1336, sats normal sinus rhythm with a ventricular rate of 100. NV interval 132. QRS 96. QTC of 490. No acute ST segment elevations. ST segment depression has resolved Critical Care Time Critical Care Time: Yes Critical Care Time: 32 minutes for bipap management, heparin gtt for nstemi Disposition Clinical Impression: COPD exacerbation, NSTEMI (non-ST elevated myocardial infarction), BiPAP (biphasic positive airway pressure) dependence Disposition: ADMITTED IP TO THIS HOSP Condition: Stable Is patient prescribed a controlled substance at d/c from ED?: No Decision to Admit Reason: Admit from EC Decision Date: 09/29/21 Decision Time: 10:21
[2021-09-29 08:43] LABS: Basophils # (A) 0.1 k/uL (0-0.2); Basophils % (A) 1 %; Eosinophils % (A) 0 %; HCT 37.6 % (34.0-46.0); HGB 12.6 gm/dL (11.4-16.0); Lymphocytes # (A) 1.1 k/uL (1.0-4.8); Lymphocytes % (A) 11 %; MCH 30.6 pg (25.0-35.0); MCHC 33.5 g/dL (31.0-37.0); MCV 91.5 fL (80.0-100.0); Mean Platelet Volume 7.5; Monocytes # (A) 0.5 k/uL (0-1.0); Monocytes % (A) 5 %; Neutrophils # (A) 8.2 k/uL (1.3-7.7); Neutrophils % (A) 83 %; Platelet Count 213 k/uL (150-450); RBC 4.11 m/uL (3.80-5.40); RDW 12.6 % (11.5-15.5); WBC 9.9 k/uL (3.8-10.6)
[2021-09-29 08:52] LABS: INR 0.9 (<1.2); Partial Thromboplastin Time 22.9 sec (22.0-30.0); Prothrombin Time 10.2 sec (9.0-12.0)
[2021-09-29 08:57] LABS: ALT 35 U/L (4-34); AST 40 U/L (14-36); African American GFR (CKD) >90 (>60 ml/min/1.73 sqM); Albumin 3.6 g/dL (3.5-5.0); Alkaline Phosphatase 59 U/L (38-126); Anion Gap 9 mmol/L; Blood Urea Nitrogen 15 mg/dL (7-17); Calcium 8.6 mg/dL (8.4-10.2); Carbon Dioxide 21 mmol/L (22-30); Chloride 98 mmol/L (98-107); Glucose 191 mg/dL (74-99); Magnesium 1.6 mg/dL (1.6-2.3); Non-African American GFR(CKD) >90 (>60 ml/min/1.73 sqM); Potassium 3.7 mmol/L (3.5-5.1); Sodium 128 mmol/L (137-145); Total Bilirubin 0.7 mg/dL (0.2-1.3)
--- NOTE | 2021-09-29 09:25 | XR ---
EXAMINATION TYPE: XR chest 2V DATE OF EXAM: 09/29/2021 COMPARISON: Chest x-ray 06/11/2021 HISTORY: Difficulty breathing TECHNIQUE: Frontal and lateral views of the chest are obtained. FINDINGS: Technique is somewhat apical lordotic and rotated. There is likely thickening along the mi nor fissure. Heart is enlarged. No evident pneumothorax or pleural effusion. Aorta is dense. Thoracic spondylosis is noted. No evident airspace disease. IMPRESSION: Rotated exam. Cardiomegaly. There may be underlying COPD.
[2021-09-29] MEDS ORDERED: IPRATROPIUM-ALBUTEROL 3 ML NEB INHALATION STA (10:13)
[2021-09-29] MEDS ORDERED: NALOXONE 0.4 MG/ML 1 ML VIAL IV PRN (10:22)
[2021-09-29] MEDS ORDERED: IPRATROPIUM-ALBUTEROL 3 ML NEB INHALATION PRN (10:33)
--- NOTE | 2021-09-29 11:24 | P.HPIM ---
History of Present Illness Patient was on 6-year-old female with known history of asthma came in with the complaints of shortness of breath found to be severely wheezing cough and congestion patient was having flulike symptoms and the family member that lives with her had similar symptoms as well. Patient's COVID-19 is negative patient did receive her flu vaccine and: 90 vaccines. Patient is presently on BiPAP patient was having significant wheezing when she came in. Which appears to have improved a bit. Patient was started on systemic steroids and inhalation treatments patient is also found to have hyponatremia with serum sodium of 128, patient also has mildly elevated troponin 0.4 on for EKG showing some ST depressions in the inferior leads. Repeat troponins are being obtained. Patient will be started on IV fluids chest x-ray did not show any pneumonia patient will not require any antibiotics. Home medications need to be verified yet. REVIEW OF SYSTEMS: CONSTITUTIONAL: No fever, no malaise, no fatigue. HEENT: No recent visual problems or hearing problems. Denied any sore throat. CARDIOVASCULAR: No chest pain, orthopnea, PND, no palpitations, no syncope. PULMONARY:no hemoptysis. GASTROINTESTINAL: No diarrhea, no nausea, no vomiting, no abdominal pain. NEUROLOGICAL: No headaches, no weakness, no numbness. HEMATOLOGICAL: Denies any bleeding or petechiae. GENITOURINARY: Denies any burning micturition, frequency, or urgency. MUSCULOSKELETAL/RHEUMATOLOGICAL: Denies any joint pain, swelling, or any muscle pain. ENDOCRINE: Denies any polyuria or polydipsia. The rest of the 14-point review of systems is negative. PHYSICAL EXAMINATION: GENERAL: The patient is alert and oriented x3, mild respiratory distress on B iPAP well developed, well nourished. HEENT: Pupils are round and equally reacting to light. EOMI. No scleral icterus. No conjunctival pallor. Normocephalic, atraumatic. No pharyngeal erythema. No thyromegaly. CARDIOVASCULAR: S1 and S2 present. No murmurs, rubs, or gallops. PULMONARY: Decreased air entry into bilateral lung meredith expiratory wheezing ABDOMEN: Soft, nontender, nondistended, normoactive bowel sounds. No palpable organomegaly. MUSCULOSKELETAL: No joint swelling or deformity. EXTREMITIES: No cyanosis, clubbing, or pedal edema. NEUROLOGICAL: Gross neurological examination did not reveal any focal deficits. SKIN: No rashes. Assessment and plan -Acute exacerbation of asthma patient will be continued on systemic steroids inhalational treatments pulmonology was consulted -Hypovolemic hyponatremia patient was started on IV fluids -Mildly elevated troponins: Secondary to hypoxemia patient also has some ST-T wave changes because of which I'm consulting cardiology patient may have mild hypoxia induced myocardial injury. -Type 2 diabetes mellitus blood sugars are expected to go up because of systemic steroids -Hyperlipidemia -Hypertension -History of sleep apnea and uses CPAP machine at -Hypomagnesemia magnesium will be replaced DVT prophylaxis: Lovenox Past Medical History Past Medical History: Asthma, Diabetes Mellitus, Eye Disorder, GERD/Reflux, Hyperlipidemia, Hypertension, Sleep Apnea/CPAP/BIPAP Additional Past Medical History / Comment(s): NIDDM, vertigo, developmentally delayed, having sharp abd. pain recently, glaucoma, not sure why patient takes steroids-states has been taking for a while History of Any Multi-Drug Resistant Organisms: None Reported Past Surgical History: Appendectomy, Hysterectomy, Joint Replacement Additional Past Surgical History / Comment(s): bilateral knee replacement, right rotator cuff surgery, bilateral carpal tunnel, tumor removed right thigh, foot surg. Past Anesthesia/Blood Transfusion Reactions: No Reported Reaction Additional Past Anesthesia/Blood Transfusion Reaction / Comment(s): Pt "alittle slow to wake up." Pt has never recieved blood. Past Psychological History: Anxiety Smoking Status: Never smoker Past Alcohol Use History: None Reported Past Drug Use History: None Reported - Past Family History Sister(s) Family Medical History: Cancer Additional Family Medical History / Comment(s): colon, lung, stomach Medications and Allergies Home Medications Medication Instructions Recorded Confirmed Type ALPRAZolam [Xanax] 0.25 mg PO BID 12/14/14 07/12/20 History Cholecalciferol [Vitamin D3 (25 1,000 unit PO AC-SUPPER 12/14/14 07/12/20 History Mcg = 1000 Iu)] Furosemide [Lasix] 20 mg PO DAILY 12/14/14 07/12/20 History Meclizine [Antivert] 25 mg PO TID 12/14/14 07/12/20 History Montelukast Sodium [Singulair] 10 mg PO HS 12/14/14 07/12/20 History metFORMIN HCL [Glucophage] 500 mg PO BID 12/14/14 07/12/20 History lisinopriL [Zestril] 5 mg PO DAILY #30 tab 12/17/14 07/12/20 Rx Albuterol Nebulized [Ventolin 2.5 mg INHALATION RT-QID PRN 06/18/16 07/12/20 History Nebulized] Atorvastatin [Lipitor] 20 mg PO HS 06/18/16 07/12/20 History Salmeterol Xinafoate [Serevent 1 puff INHALATION RT-BID 06/18/16 07/12/20 History Diskus] Celecoxib [CeleBREX] 200 mg PO DAILY 12/25/17 07/12/20 History Sucralfate [Carafate] 1 gm PO TID 05/19/19 07/12/20 History Hydrocortisone 10 mg PO HS 07/12/20 07/12/20 History Hydrocortisone [Cortef] 20 mg PO QAM 07/12/20 07/12/20 History Latanoprost Ophth [Xalatan 0.005%] 1 drops RIGHT EYE HS 07/12/20 07/12/20 Histo ry Allergies Allergy/AdvReac Type Severity Reaction Status Date / Time latex Allergy Rash/Hives Verified 09/29/21 11:20 sulfamethoxazole Allergy Unknown Verified 09/29/21 11:20 [From Bactrim] trimethoprim [From Bactrim] Allergy Unknown Verified 09/29/21 11:20 Physical Exam Vitals: Vital Signs Temp Pulse Resp BP Pulse Ox 09/29/21 10:27 98 22 138/89 94 L 09/29/21 09:14 118 H 44 H 95 09/29/21 09:11 120 H 44 H 175/90 83 L 09/29/21 07:59 99.3 F 102 H 18 180/96 92 L Intake and Output 09/28/21 09/29/21 09/29/21 22:59 06:59 14:59 Other: Weight 55.338 kg Results CBC & Chem 7: 09/29/21 08:29 09/29/21 08:29 Labs: Abnormal Lab Results - Last 24 Hours (Table) 09/29/21 09/29/21 09/29/21 Range/Units 08:29 08:29 08:29 Neutrophils # 8.2 H (1.3-7.7) k/uL Sodium 128 L (137-145) mmol/L Carbon Dioxide 21 L (22-30) mmol/L Glucose 191 H (74-99) mg/dL AST 40 H (14-36) U/L ALT 35 H (4-34) U/L Troponin I 0.414 H* (0.000-0.034) ng/mL Total Protein 6.0 L (6.3-8.2) g/dL
[2021-09-29] MEDS: MAGNESIUM SULFATE-D5W PMX 1 GM in DEXTROSE/WATER 1 100ML.BAG IVPB SCH ×2 (12:23→14:13)
[2021-09-29] MEDS: FAMOTIDINE 20 MG TAB PO SCH ×2 (12:24→21:00)
[2021-09-29] MEDS: SODIUM CHLORIDE 0.9% 1,000 ML IV SCH (12:24)
[2021-09-29] MEDS ORDERED: HEPARIN SODIUM 1,000 UN/ML (10ML VL) IV ONE ×2 (13:40→14:45)
[2021-09-29] MEDS ORDERED: HEPARIN SODIUM 1,000 UN/ML (10ML VL) IV PRN (13:40)
[2021-09-29] MEDS ORDERED: HEPARIN SOD,PORK IN 0.45% NACL 25,000 UNIT in 0.45% NACL 1 250ML.BAG IV SCH (13:45)
[2021-09-29] MEDS: INSULIN ASPART (NovoLOG) 100 UNIT/ML VIAL SQ SCH ×3 (16:09→21:00)
--- NOTE | 2021-09-29 16:22 | P.CNPUL ---
History of Present Illness Consult date: 09/29/21 Requesting physician: Debra Schmidt Reason for consult: dyspnea, asthma, hypoxemia Chief complaint: Shortness of breath History of present illness: This is a very pleasant 76-year-old female patient with a known history of mild intermittent chronic bronchial asthma, diabetes mellitus, gout, hiatal hernia, hyperlipidemia, hypertension, obstructive sleep apnea with AHI of 24 on CPAP at 7 cm of water the outpatient setting. She has an FEV1 value 1.20 L and 67% of predicted. She is maintained on Singulair, Serevent, albuterol. Lifelong nonsmoker. She presented to the emergency room early this morning after waking up significantly short of breath. He took [id number] breathing treatments without much improvement. She had been having worsening shortness of breath over the past couple of days. Said x-ray did not reveal any acute pulmonary process. White count 9.9. Hemoglobin 12.6. Platelets 213. Sodium 128. Potassium 3.7. Bicarb 21. Creatinine 0.54. Glucose 191. AST 40. ALT 35. Troponin 0.414, 2.54. ProBNP 129. Influenza screen negative. RSV negative, loya virus negative. She is vaccinated. She is seen today in consultation in the emergency room. She is currently sitting up in the stretcher. Awake and alert. She is on BiPAP 12/5 and 75% FiO2 with O2 saturations at 97%. She is initiated on a heparin drip. She has been given IV Solu-Medrol, bronchodilators and is feeling slightly improved. Afebrile. Hemodynamically stable. She currently denies any chest pain. Review of Systems REVIEW OF SYSTEMS: CONSTITUTIONAL: Denies any recent significant weight loss or weight gain. EYES: Denies change in vision. EARS, NOSE, MOUTH, THROAT: Denies headaches, denies sore throat. CARDIOVASCULAR: Denies chest pain, palpitations or syncopal episodes. RESPIRATORY: Positive for shortness of breath, cough, congestion no hemoptysis. GASTROINTESTINAL: Denies change in appetite, denies abdominal pain GENITOURINARY: Denies hematuria, denies infections. MUSKULOSKELETAL: Denies pain, denies swelling. INTEGUMENTARY: Denies rash, denies eczema. NEUROLOGICAL: Denies recent memory loss, no recent seizure activity. PSYCHIATRIC: Denies anxiety, denies depression. HEMATOLOGIC/LYMPHATIC: Denies anemia, denies enlarged lymph nodes. Past Medical History Past Medical History: Asthma, Diabetes Mellitus, Eye Disorder, GERD/Reflux, Hyperlipidemia, Hypertension, Sleep Apnea/CPAP/BIPAP Additional Past Medical History / Comment(s): NIDDM, vertigo, developmentally delayed, having sharp abd. pain recently, glaucoma, not sure why patient takes steroids-states has been taking for a while History of Any Multi-Drug Resistant Organisms: None Reported Past Surgical History: Appendectomy, Hysterectomy, Joint Replacement Additional Past Surgical History / Comment(s): bilateral knee replacement, right rotator cuff surgery, bilateral carpal tunnel, tumor removed right thigh, foot surg. Past Anesthesia/Blood Transfusion Reactions: No Reported Reaction Additional Past Anesthesia/Blood Transfusion Reaction / Comment(s): Pt "alittle slow to wake up." Pt has never recieved blood. Past Psychological History: Anxiety Smoking Status: Never smoker Past Alcohol Use History: None Reported Past Drug Use History: None Reported - Past Family History Sister(s) Family Medical History: Cancer Additional Family Medical History / Comment(s): colon, lung, stomach Medications and Allergies Home Medications Medication Instructions Recorded Confirmed Type ALPRAZolam [Xanax] 0.25 mg PO HS 12/14/14 09/29/21 History Cholecalciferol [Vitamin D3 (25 50 mcg PO DAILY 12/14/14 09/29/21 History Mcg = 1000 Iu)] Furosemide [Lasix] 20 mg PO DAILY 12/14/14 09/29/21 History Meclizine [Antivert] 25 mg PO TID 12/14/14 09/29/21 History Montelukast Sodium [Singulair] 10 mg PO DAILY 12/14/14 09/29/21 History metFORMIN HCL [Glucophage] 500 mg PO AC-TID 12/14/14 09/29/21 History lisinopriL [Zestril] 5 mg PO DAILY #30 tab 12/17/14 09/29/21 Rx Albuterol Nebulized [Ventolin 2.5 mg INHALATION RT-QID PRN 06/18/16 09/29/21 History Nebulized] Atorvastatin [Lipitor] 20 mg PO DAILY 06/18/16 09/29/21 History Salmeterol Xinafoate [Serevent 1 puff INHALATION RT-BID 06/18/16 09/29/21 History Diskus] Sucralfate [Carafate] 1 gm PO TID 05/19/19 09/29/21 History Hydrocortisone 10 mg PO HS 07/12/20 09/29/21 History Hydrocortisone [Cortef] 20 mg PO DAILY 07/12/20 09/29/21 History Latanoprost Ophth [Xalatan 0.005%] 1 drops RIGHT EYE HS 07/12/20 09/29/21 History Alendronate Sodium [Binosto] 70 mg PO YOUNG 09/29/21 09/29/21 History Ketorolac 0.5% Ophth Soln [Acular 1 drop RIGHT EYE QID 09/29/21 09/29/21 History 0.5%] Multivitamins, Thera [Multivitamin 1 tab PO DAILY 09/29/21 09/29/21 History (formulary)] Omeprazole 20 mg PO DAILY 09/29/21 09/29/21 History traMADol HCL 50 mg PO BID PRN 09/29/21 09/29/21 History Allergies Allergy/AdvReac Type Severity Reaction Status Date / Time latex Allergy Rash/Hives Verified 09/29/21 11:20 sulfamethoxazole Allergy Unknown Verified 09/29/21 11:20 [From Bactrim] trimethoprim [From Bactrim] Allergy Unknown Verified 09/29/21 11:20 Physical Exam Vitals: Vital Signs Temp Pulse Resp BP Pulse Ox 09/29/21 14:20 96 28 H 119/71 98 09/29/21 11:49 94 L 09/29/21 11:45 105 H 28 H 118/73 90 L 09/29/21 11:35 106 H 09/29/21 11:25 106 H 09/29/21 10:27 98 22 138/89 94 L 09/29/21 09:14 118 H 44 H 95 09/29/21 09:11 120 H 44 H 175/90 83 L 09/29/21 07:59 99.3 F 102 H 18 180/96 92 L Intake and Output 09/29/21 09/29/21 09/29/21 06:59 14:59 22:59 Other: Weight 55.338 kg GENERAL EXAM: Alert, pleasant 76-year-old female patient, cachectic, on BiPAP f or 12/5 and 75% FiO2, fairly comfortable in no apparent distress. HEAD: Normocephalic. EYES: Normal reaction of pupils, equal size. NOSE: Clear with pink turbinates. THROAT: No erythema or exudates. NECK: No masses, no JVD. CHEST: No chest wall deformity. LUNGS: Equal air entry with bilateral end expiratory wheeze, diminished. CVS: S1 and S2 normal with no audible murmur, regular rhythm. ABDOMEN: No hepatosplenomegaly, normal bowel sounds, no guarding or rigidity. SPINE: No scoliosis or deformity SKIN: No rashes CENTRAL NERVOUS SYSTEM: No focal deficits, tone is normal in all 4 extremities. EXTREMITIES: There is no peripheral edema. No clubbing, no cyanosis. Peripheral pulses are intact. Results - Laboratory Findings CBC and BMP: 09/29/21 08:29 09/29/21 08:29 PT/INR, D-dimer PT 10.2 sec (9.0-12.0) 09/29/21 08:29 INR 0.9 (<1.2) 09/29/21 08:29 Abnormal lab findings: Abnormal Labs 09/29/21 09/29/21 09/29/21 08:29 08:29 08:29 Neutrophils # 8.2 H Sodium 128 L Carbon Dioxide 21 L Glucose 191 H AST 40 H ALT 35 H Troponin I 0.414 H* Total Protein 6.0 L 09/29/21 12:19 Neutrophils # Sodium Carbon Dioxide Glucose AST ALT Troponin I 2.540 H* Total Protein - Diagnostic Findings Chest x-ray: image reviewed Assessment and Plan Assessment: 1 Acute hypoxic respiratory failure secondary to an exacerbation of mild intermittent chronic bronchial asthma, requiring BiPAP support. 2 Elevated troponins, possible NSTEMI, initiated on heparin drip 3 Hyponatremia 4 Diabetes mellitus 5 History of anemia 6 Hyperlipidemia 7 Hypertension 8 Obstructive sleep apnea, on CPAP in the outpatient setting 9 History of gout Plan: The patient was seen and evaluated by Dr. Gibson Chest x-ray and labs reviewed Continue BiPAP 11/04, decreased FiO2 to 45% Titrate the FiO2 as tolerated Continue bronchodilators, IV Solu-Medrol Add Symbicort Initiated on a heparin drip Cardiology consult pending Follow-up chest x-ray in the a.m. We will continue to follow and make further recommendations based on her clinical status I, the cosigning physician, performed a history & physical examination of the patient. Lungs sounds with bilateral end expiratory wheeze. Maintaining good O2 saturations in the 90s on BiPAP 12/5 and 45% FiO2. I discussed the assessment and plan of care with my nurse practitioner, Krysta Zhou. I attest to the above consultation as dictated by her. Time with Patient: Greater than 30
[2021-09-29 16:52] LABS: Glucose,Whole Blood 332 mg/dL (75-99)
[2021-09-29] MEDS: methylPREDNISolone SOD SUCCI 40 MG/ML 1 ML VIAL IV SCH ×2 (17:25→23:42)
[2021-09-29] MEDS: ASPIRIN 81 MG PO SCH (17:26)
[2021-09-29] MEDS: ATORVASTATIN 40 MG TAB PO SCH (17:26)
[2021-09-29 18:27] LABS: Glucose,Whole Blood 345 mg/dL (75-99)
--- NOTE | 2021-09-29 18:30 | CT ---
EXAMINATION TYPE: CT brain wo con DATE OF EXAM: 09/29/2021 COMPARISON: 03/21/2017 HISTORY: ams CT DLP: 1155.4 mGycm Automated exposure control for dose reduction was used. There is mild cerebral atrophy. There is no mass effect nor midline shift. There is no sign of intrac ranial hemorrhage. Calvarium is intact. Skull base is intact. IMPRESSION: Minimal atrophy. No acute intracranial abnormality. No change.
--- NOTE | 2021-09-29 18:45 | CONS ---
CONSULTATION Mrs. Brady is a 76-year-old female who presented to the emergency room with symptoms of progressive dyspnea. Patient has a known history of bronchial asthma, has been followed by Dr. Ramirez. Denies any prior cardiac history. Cardiology consultation was requested because of mild troponin elevation. She has history of diabetes, but she denies any chest pain. She was significantly dyspneic over the last two days with cough but no fever. She came into the emergency room and was subsequently admitted. The patient had a stress echocardiogram in 2014 and at that time there was no evidence of stress-induced ischemia. She denies any peripheral edema. No palpitations. No syncope. No clear PND or orthopnea. Her coronary risk factors are remarkable for diabetes. She is a nonsmoker. She is hypertensive and hyperlipidemic. MEDICATION: Her medication includes Lipitor 20 mg daily, Ventolin, Lasix 20 mg daily, hydrocortisone, Antivert, Singulair, Serevent, Carafate, Zestril 5 mg daily, metformin and tramadol. REVIEW OF SYSTEMS: RESPIRATORY SYSTEM: She has bronchial asthma with significant progressive dyspnea and cough. GI SYSTEM: No recent GI bleeding. No peptic ulcer disease. SYSTEM: No dysuria or hematuria. NERVOUS SYSTEM: No stroke or seizure. PHYSICAL EXAMINATION: She is a 76-year-old female, moderately dyspneic on BiPAP. Blood pressure 133/90 with a heart rate in the 90s. HEAD: Normocephalic. EYES: Sclerae anicteric. NECK: No bruit. LUNGS: Scattered wheezes bilaterally. HEART: Regular rate and rhythm. S1, S2. No S3, with systolic murmur. No diastolic murmur. ABDOMEN: Soft, nontender. Positive bowel sounds. No organomegaly. EXTREMITIES: No edema. LAB DATA: BUN and creatinine 15 and 0.54. Troponin 0.41 and 2.5. Hemoglobin 12.6, white blood cells of 9.9. EKG revealed a sinus mechanism with QS in the anterior leads that appear to be more prominent compared with an older EKG in 2019. She had mild ST-elevation earlier in lead I and aVL. On subsequent EKG, the ST-elevation resolved. She has minimal ST- elevation in leads V3 and V4. Her chest x-ray revealed cardiomegaly. IMPRESSION: 1. Acute dyspnea with possible exacerbation of chronic obstructive pulmonary disease. 2. Evidence consistent with myocardial infarction. It is unclear if the changes on the EKG are acute. They are different from 2019. 3. History of diabetes. 4. Hypertension. 5. Hyperlipidemia. RECOMMENDATIONS: Patient clinically has no symptoms of chest discomfort. She has been initiated on IV heparin. I will give her IV Lasix. I will add nitrate to her regimen. I will continue her on the statin. We will obtain echocardiogram with Doppler. She may require coronary angiography, depending on her progress. Thank you for this consult. Will follow with you. MMODL / IJN: [id number] /
[2021-09-29] MEDS: FORMOTEROL FUMARATE 20 MCG/2 ML NEBU INHALATION SCH (19:18)
[2021-09-29] MEDS: BUDESONIDE 1 MG/2 ML NEBU INHALATION SCH (19:18)
[2021-09-29] MEDS: IPRATROPIUM-ALBUTEROL 3 ML NEB INHALATION SCH (19:18)
[2021-09-29 20:27] LABS: Glucose,Whole Blood 301 mg/dL (75-99)
[2021-09-29] MEDS: MONTELUKAST 10 MG TAB PO SCH (21:00)
[2021-09-29] MEDS: METOPROLOL TARTRATE 25 MG TAB PO SCH (21:00)
[2021-09-29] MEDS: FUROSEMIDE 10 MG/ML 2 ML VIAL IV SCH (21:00)
[2021-09-30] MEDS ORDERED: SODIUM CHLORIDE 0.9% 500 ML 500 ML IV ONE (00:56)
[2021-09-30 05:19] LABS: Basophils % (A) 0 %; Eosinophils % (A) 0 %; HCT 43.7 % (34.0-46.0); HGB 13.8 gm/dL (11.4-16.0); Lymphocytes # (A) 0.7 k/uL (1.0-4.8); Lymphocytes % (A) 8 %; MCH 29.6 pg (25.0-35.0); MCHC 31.5 g/dL (31.0-37.0); MCV 93.7 fL (80.0-100.0); Mean Platelet Volume 7.9; Monocytes # (A) 0.2 k/uL (0-1.0); Monocytes % (A) 3 %; Neutrophils % (A) 88 %; Platelet Count 229 k/uL (150-450); RBC 4.66 m/uL (3.80-5.40); RDW 12.7 % (11.5-15.5); WBC 9.1 k/uL (3.8-10.6)
[2021-09-30 05:34] LABS: African American GFR (CKD) >90 (>60 ml/min/1.73 sqM); Anion Gap 11 mmol/L; Blood Urea Nitrogen 24 mg/dL (7-17); Calcium 7.6 mg/dL (8.4-10.2); Carbon Dioxide 16 mmol/L (22-30); Chloride 105 mmol/L (98-107); Glucose 199 mg/dL (74-99); Magnesium 2.6 mg/dL (1.6-2.3); Non-African American GFR(CKD) >90 (>60 ml/min/1.73 sqM); Sodium 132 mmol/L (137-145)
[2021-09-30] MEDS: NITROGLYCERIN OINT 1 INCH/GM PACKET TOPICAL SCH ×2 (05:35→09:13)
[2021-09-30 06:01] LABS: Prothrombin Time 11.1 sec (9.0-12.0)
[2021-09-30 06:11] LABS: Glucose,Whole Blood 190 mg/dL (75-99)
[2021-09-30] MEDS: INSULIN ASPART (NovoLOG) 100 UNIT/ML VIAL SQ SCH ×4 (06:38→20:17)
[2021-09-30] MEDS: FORMOTEROL FUMARATE 20 MCG/2 ML NEBU INHALATION SCH ×2 (07:25→19:22)
[2021-09-30] MEDS: IPRATROPIUM-ALBUTEROL 3 ML NEB INHALATION SCH ×4 (07:25→19:22)
[2021-09-30] MEDS: BUDESONIDE 1 MG/2 ML NEBU INHALATION SCH ×2 (07:25→19:22)
--- NOTE | 2021-09-30 07:46 | P.PN ---
Subjective Patient was on 6-year-old female with known history of asthma came in with the complaints of shortness of breath found to be severely wheezing cough and congestion patient was having flulike symptoms and the family member that lives with her had similar symptoms as well. Patient's COVID-19 is negative patient did receive her flu vaccine and: 90 vaccines. Patient is presently on BiPAP patient was having significant wheezing when she came in. Which appears to have improved a bit. Patient was started on systemic steroids and inhalation treat ments patient is also found to have hyponatremia with serum sodium of 128, patient also has mildly elevated troponin 0.4 on for EKG showing some ST depressions in the inferior leads. Repeat troponins are being obtained. Patient will be started on IV fluids chest x-ray did not show any pneumonia pa tient will not require any antibiotics. Home medications need to be verified yet. 09/30/2021 Patient second troponin went up to around 2.5 because of which patient was started on IV heparin Lovenox was discontinued can evaluate was subsequent to consulted and cardiology believes that patient may need cardiac catheterization. Patient patient was evaluated by pulmonology as well patient's serum sodium improved to 132 from 129 can use to be on IV fluids. Patient has bilateral rhonchi along with expiratory wheezing, patient is presently on 4 L of oxygen. Constitutional: Denied any fatigue denied any fever. Cardio vascular: denied any chest pain, palpitations Gastrointestinal denied any nausea vomiting Pulmonary: Denied any shortness of breath cough Neurologic denied any new focal deficits All inpatient medications were reviewed and appropriate changes in these medications as dictated in the interval history and assessment and plan. PHYSICAL EXAMINATION: GENERAL: The patient is alert and oriented x3, mild respiratory distress on 4 L of oxygen well developed, well nourished. HEENT: Pupils are round and equally reacting to light. EOMI. No scleral icterus. No conjunctival pallor. Normocephalic, atraumatic. No pharyngeal erythema. No thyromegaly. CARDIOVASCULAR: S1 and S2 present. No murmurs, rubs, or gallops. PULMONARY: Decreased air entry into bilateral lung meredith expiratory wheezing ABDOMEN: Soft, nontender, nondistended, normoactive bowel sounds. No palpable organomegaly. MUSCULOSKELETAL: No joint swelling or deformity. EXTREMITIES: No cyanosis, clubbing, or pedal edema. NEUROLOGICAL: Gross neurological examination did not reveal any focal deficits. SKIN: No rashes. Assessment and plan -Acute exacerbation of asthma patient will be continued on systemic steroids inhalational treatments pulmonology was consulted -Hypovolemic hyponatremia patient with IV fluids -Possible non-ST elevation myocardial infarction cardiology evaluated the patient and the patient is on IV heparin at this time. -Type 2 diabetes mellitus blood sugars are expected to go up because of systemic steroids -Hyperlipidemia -Hypertension -History of sleep apnea and uses CPAP machine at -Hypomagnesemia magnesium will be replaced DVT prophylaxis: Lovenox Objective - Vital Signs Vital signs: Vital Signs Temp 96.6 F L 09/30/21 03:52 Pulse 95 09/30/21 07:44 Resp 28 H 09/30/21 03:52 BP 137/88 09/30/21 03:52 Pulse Ox 97 09/30/21 07:25 Intake & Output 09/29/21 09/30/21 09/30/21 18:59 06:59 18:59 Intake Total 112.05 Output Total 200 Balance -87.95 Weight 55.338 kg 65.062 kg Intake: IV 10 Invasive Line 2 10 Intake, IV Titration 102.05 Amount Heparin Sod,Pork in 0.45% 102.05 NaCl 25,000 unit In 0.45 % NaCl 1 250ml.bag @ 12 UNITS/KG/HR 6.641 mls/hr IV .Q24H [facility] Rx#: [id number] Output: Urine 200 Other: Voiding Method External Catheter # Voids 0 1 - Labs CBC & Chem 7: 09/30/21 04:54 09/30/21 04:54 Labs: Abnormal Lab Results - Last 24 Hours (Table) 09/29/21 09/29/21 09/29/21 Range/Units 08:29 08:29 08:29 Neutrophils # 8.2 H (1.3-7.7) k/uL Lymphocytes # (1.0-4.8) k/uL APTT (22.0-30.0) sec Sodium 128 L (137-145) mmol/L Carbon Dioxide 21 L (22-30) mmol/L BUN (7-17) mg/dL Glucose 191 H (74-99) mg/dL POC Glucose (mg/dL) (75-99) mg/dL Calcium (8.4-10.2) mg/dL Magnesium (1.6-2.3) mg/dL AST 40 H (14-36) U/L ALT 35 H (4-34) U/L Troponin I 0.414 H* (0.000-0.034) ng/mL Total Protein 6.0 L (6.3-8.2) g/dL 09/29/21 09/29/21 09/29/21 Range/Units 12:19 15:21 16:50 Neutrophils # (1.3-7.7) k/uL Lymphocytes # (1.0-4.8) k/uL APTT (22.0-30.0) sec Sodium (137-145) mmol/L Carbon Dioxide (22-30) mmol/L BUN (7-17) mg/dL Glucose (74-99) mg/dL POC Glucose (mg/dL) 332 H (75-99) mg/dL Calcium (8.4-10.2) mg/dL Magnesium (1.6-2.3) mg/dL AST (14-36) U/L ALT (4-34) U/L Troponin I 2.540 H* 2.540 H* (0.000-0.034) ng/mL Total Protein (6.3-8.2) g/dL 09/29/21 09/29/21 09/29/21 Range/Units 18:26 20:22 20:26 Neutrophils # (1.3-7.7) k/uL Lymphocytes # (1.0-4.8) k/uL APTT 44.2 H (22.0-30.0) sec Sodium (137-145) mmol/L Carbon Dioxide (22-30) mmol/L BUN (7-17) mg/dL Glucose (74-99) mg/dL POC Glucose (mg/dL) 345 H 301 H (75-99) mg/dL Calcium (8.4-10.2) mg/dL Magnesium (1.6-2.3) mg/dL AST (14-36) U/L ALT (4-34) U/L Troponin I (0.000-0.034) ng/mL Total Protein (6.3-8.2) g/dL 09/30/21 09/30/21 09/30/21 Range/Units 02:29 04:54 04:54 Neutrophils # 8.0 H (1.3-7.7) k/uL Lymphocytes # 0.7 L (1.0-4.8) k/uL APTT (22.0-30.0) sec Sodium 132 L (137-145) mmol/L Carbon Dioxide 16 L (22-30) mmol/L BUN 24 H (7-17) mg/dL Glucose 199 H (74-99) mg/dL POC Glucose (mg/dL) (75-99) mg/dL Calcium 7.6 L (8.4-10.2) mg/dL Magnesium 2.6 H (1.6-2.3) mg/dL AST (14-36) U/L ALT (4-34) U/L Troponin I 2.630 H* (0.000-0.034) ng/mL Total Protein (6.3-8.2) g/dL 09/30/21 09/30/21 09/30/21 Range/Units 04:54 04:54 06:09 Neutrophils # (1.3-7.7) k/uL Lymphocytes # (1.0-4.8) k/uL APTT 49.3 H (22.0-30.0) sec Sodium (137-145) mmol/L Carbon Dioxide (22-30) mmol/L BUN (7-17) mg/dL Glucose (74-99) mg/dL POC Glucose (mg/dL) 190 H (75-99) mg/dL Calcium (8.4-10.2) mg/dL Magnesium (1.6-2.3) mg/dL AST (14-36) U/L ALT (4-34) U/L Troponin I 2.270 H* (0.000-0.034) ng/mL Total Protein (6.3-8.2) g/dL
[2021-09-30] MEDS: methylPREDNISolone SOD SUCCI 40 MG/ML 1 ML VIAL IV SCH ×3 (08:15→23:09)
[2021-09-30] MEDS: FUROSEMIDE 10 MG/ML 2 ML VIAL IV SCH (08:15)
[2021-09-30] MEDS: ASPIRIN 81 MG PO SCH (08:15)
[2021-09-30] MEDS: ATORVASTATIN 40 MG TAB PO SCH (08:15)
[2021-09-30] MEDS: METOPROLOL TARTRATE 25 MG TAB PO SCH ×2 (08:15→20:16)
[2021-09-30] MEDS: FAMOTIDINE 20 MG TAB PO SCH ×2 (08:15→20:16)
--- NOTE | 2021-09-30 08:40 | XR ---
EXAMINATION TYPE: XR chest 1V portable DATE OF EXAM: 09/30/2021 COMPARISON: Chest x-ray 09/29/2021 HISTORY: Shortness of breath TECHNIQUE: Single frontal view of the chest is obtained. FINDINGS: The heart is enlarged. Interstitium is increased, there is groundglass opacity bilaterally . No evident pneumothorax. Difficult to exclude minimal effusion. IMPRESSION: Correlate for congestive heart failure, pneumonia not excluded
[2021-09-30] MEDS ORDERED: ENOXAPARIN 40 MG/0.4 ML SYRINGE SQ SCH (09:00)
[2021-09-30] MEDS ORDERED: ALPRAZolam 0.25 MG TAB PO PRN (09:06)
[2021-09-30] MEDS ORDERED: NITROGLYCERIN SL TABS 0.4 MG TAB SUBLINGUAL PRN (09:06)
[2021-09-30] MEDS ORDERED: ATORVASTATIN 40 MG TAB PO STA (09:06)
[2021-09-30] MEDS ORDERED: ALPRAZolam 0.5 MG TAB PO PRN (09:06)
[2021-09-30] MEDS ORDERED: ASPIRIN 325 MG TAB PO STA (09:06)
[2021-09-30] MEDS: SODIUM CHLORIDE 0.9% 1,000 ML in EMPTY BAG 1 BAG IV SCH (09:14)
[2021-09-30] MEDS: SODIUM CHLORIDE 0.9% 1,000 ML IV SCH ×2 (09:51→14:55)
[2021-09-30 12:00] LABS: Glucose,Whole Blood 144 mg/dL (75-99)
[2021-09-30] MEDS ORDERED: VERAPAMIL 2.5 MG/ML 2 ML AMP ONE (12:02)
[2021-09-30] MEDS ORDERED: LIDOCAINE 1% INJ 10MG/ML (20 ML MDV) ONE (12:02)
[2021-09-30] MEDS ORDERED: fentaNYL (PF) 50 MCG/ML 2 ML AMP ONE (12:17)
[2021-09-30] MEDS ORDERED: HEPARIN SODIUM 1,000 UN/ML (10ML VL) ONE (12:17)
[2021-09-30] MEDS ORDERED: IV FLUID CONTINUATION 1,000 ML IV ONE (12:23)
[2021-09-30] MEDS ORDERED: fentaNYL (PF) 50 MCG/ML 2 ML AMP IV ONE (12:25)
[2021-09-30] MEDS ORDERED: LIDOCAINE 1% INJ 10MG/ML (20 ML MDV) SQ ONE (12:28)
[2021-09-30] MEDS ORDERED: VERAPAMIL SYRINGE (5 MG/10 ML) INTRAARTER ONE (12:29)
[2021-09-30] MEDS ORDERED: MIDAZOLAM 2 MG/2 ML VIAL IV ONE (12:35)
[2021-09-30] MEDS ORDERED: IOPAMIDOL-370 125ML BTL INJ ONE (12:44)
[2021-09-30] MEDS ORDERED: CLOPIDOGREL 75 MG TAB ONE (12:46)
--- NOTE | 2021-09-30 12:47 | PN ---
PROGRESS NOTE Mrs. Brady is a 76-year-old female who presented with severe dyspnea. She has history of bronchial asthma. On presentation, there was evidence of EKG changes on the anterior leads. She is feeling better today. She is on nasal cannula. She had some chest discomfort earlier that appears to be musculoskeletal. She denies any dizziness or palpitation. She continues to be in sinus mechanism. She had an episode of hypertension that resolved. Otherwise, she is on aspirin once a day Lipitor 40 mg daily, Lasix 20 mg IV q.12 hours, IV heparin, metoprolol tartrate 25 mg twice a day, methylprednisolone, Singulair, and nitropaste. PHYSICAL EXAMINATION: Blood pressure running in the 120s with a heart rate in the 90s. LUNGS: With bilateral crackles and rales. HEART: Regular rate and rhythm S1, S2. No S3 with systolic murmur, no diastolic murmur. ABDOMEN: Soft, nontender. EXTREMITIES: No edema. LAB DATA: Peak troponin 2.630. EKG reveals sinus mechanism with poor R progression, cannot exclude anterior myocardial infarction. IMPRESSION: 1. Worsening dyspnea with evidence suggestive of congestive heart failure and non ST- segment elevation myocardial infarction. 2. History of bronchial asthma. RECOMMENDATIONS: I have talked to the patient as well as her sister, Annetta, over the phone regarding the findings. I have recommended proceeding with coronary angiography to assess her status and guide her treatment. The rationale behind the procedure was discussed with her sister and she is in full understanding and agreement. Depending on results of testing, further recommendations will be made. MMMALINDAL / IJN: [id number] /
[2021-09-30] MEDS ORDERED: RX INFO: IV CONTRAST WAS GIVEN 1 EACH MISC MISCELLANE PRN (12:49)
[2021-09-30] MEDS ORDERED: CLOPIDOGREL 75 MG TAB PO ONE (12:54)
[2021-09-30] MEDS ORDERED: SODIUM CHLORIDE 0.9% 1,000 ML IV SCH (13:00)
--- NOTE | 2021-09-30 13:32 | CC ---
CARDIAC CATHETERIZATION REPORT DATE OF SERVICE: 09/30/2021 Mrs. Brady is a 76-year-old female with known history of bronchial asthma who presented with symptoms of severe dyspnea and some episodes of chest discomfort. There were some ST-segment changes anteriorly and she had mild troponin elevation. In view of that, recommendations were made regarding cardiac catheterization. The procedure as well as its risks and complications were discussed with the patient, who was in full understanding and agreement. 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 Using Xylocaine anesthesia and Seldinger technique, a 6-Gabonese sheath was introduced in the right radial artery. Selective right and left coronary angiography was performed using 5- Gabonese 3.5 bend right and left Rainer catheters. Multiple views were taken of the arteries, including hemiaxial views. Following that, a 5-Gabonese tight pigtail catheter was introduced into the left ventricle and a 30-degree NUGENT view of the left ventricle was obtained. Following that, catheter and sheath were removed. Hemostasis was obtained with deployment of a TR band. There was no immediate complication. Patient was returned to her room in stable condition. Of note, the patient received 3500 units of intravenous heparin as well as intraarterial verapamil. FINDINGS: LEFT MAIN: This is a short-sized vessel bifurcating into left circumflex and left anterior descending artery. Left main coronary artery has no evidence of high-grade stenosis. LEFT ANTERIOR DESCENDING ARTERY: This is a large-sized vessel. It tapers down in the distal third, giving rise to two diagonal branches. The second one in the mid segment is large in caliber. The left anterior descending artery as well as its branches have no evidence of obstructive coronary artery disease. LEFT CIRCUMFLEX: This is a nondominant vessel, large in caliber, giving rise to three obtuse marginal branches. The second one is largest in caliber. The left circumflex as well as its branches have no evidence of obstructive coronary artery disease. RIGHT CORONARY ARTERY: This is a large dominant vessel bifurcating distally PDA and posterolateral segment and branches. The right coronary artery as well as branches its have no evidence of obstructive coronary artery disease. LEFT VENTRICULOGRAM: Left ventriculogram was performed in 30-degree NUGENT view and revealed normal movement of the bases with akinesis of the anteroapical and inferoapical wall consistent with takotsubo syndrome. There was no significant mitral regurgitation. HEMODYNAMICS: There was no gradient across the aortic valve. The left ventricular end- diastolic pressure was 25 to 30 mmHg. CONCLUSION: 1. Normal coronary arteries. 2. Severely impaired left ventricular systolic function. 3. Elevated left ventricular end-diastolic pressure. RECOMMENDATIONS: The findings are consistent with takotsubo syndrome. At this time I will maximize her medical therapy, and depending on her progress, further recommendations will be made. Those findings and recommendations were discussed with the patient and her family, and they are in full understanding and agreement. Duration of sedation was 20 minutes. MMODL / IJN: [id number] /
--- NOTE | 2021-09-30 13:38 | LTR ---
September 30, 2021 To: Dr. Engel Re: Keely Brady (43) Dear Dr. Engel, I had the pleasure of performing cardiac catheterization on Mrs. Brady at [facility] on September 30, and a full copy of the procedure note will be forwarded to you. In brief, she was found to have no evidence of obstructive coronary artery disease, with severely impaired left ventricular systolic function consistent with takotsubo syndrome. At this time I will continue to maximize her medical therapy and hopefully we will see improvement in her left ventricular systolic function. Thank you again for allowing me to participate in this patient's care. Please feel free to call with any questions. Sincerely, Travis Gilmore M.D. JESSICA / LUIZA: [id number] /
[2021-09-30] MEDS: SPIRONOLACTONE 25 MG TAB PO SCH (15:27)
[2021-09-30] MEDS ORDERED: FUROSEMIDE 20 MG TAB PO SCH (16:00)
--- NOTE | 2021-09-30 16:37 | P.PN ---
Subjective Progress Note Date: 09/30/21 Principal diagnosis: Acute hypoxic respiratory failure, secondary to acute exacerbation of mild intermittent asthma, and acute systolic congestive heart failure with non-ST elevation myocardial infarction. This is a very pleasant 76-year-old female patient with a known history of mild intermittent chronic bronchial asthma, diabetes mellitus, gout, hiatal hernia, hyperlipidemia, hypertension, obstructive sleep apnea with AHI of 24 on CPAP at 7 cm of water the outpatient setting. She has an FEV1 value 1.20 L and 67% of predicted. She is maintained on Singulair, Serevent, albuterol. Lifelong nonsmoker. She presented to the emergency room early this morning after waking u p significantly short of breath. He took [id number] breathing treatments without much improvement. She had been having worsening shortness of breath over the past couple of days. Said x-ray did not reveal any acute pulmonary process. White count 9.9. Hemoglobin 12.6. Platelets 213. Sodium 128. Potassium 3.7. Bicarb 21. Creatinine 0.54. Glucose 191. AST 40. ALT 35. Troponin 0.414, 2.54. ProBNP 129. Influenza screen negative. RSV negative, loya virus negative. She is vaccinated. She is seen today in consultation in the emergency room. She is currently sitting up in the stretcher. Awake and alert. She is on BiPAP 12/5 and 75% FiO2 with O2 saturations at 97%. She is in itiated on a heparin drip. She has been given IV Solu-Medrol, bronchodilators and is feeling slightly improved. Afebrile. Hemodynamically stable. She currently denies any chest pain. Patient was reevaluated today on 09/30/21, patient was seen yesterday in the ER, and she was noted to have acute hypoxic for failure, acute non-ST elevation myocardial infarction, underwent cardiac catheterization today by Dr. Gilmore, and she was found to have normal coronary arteries, severely impaired left ve ntricular systolic function, and elevated left ventricular end-diastolic pressure. Follow-up chest x-ray today showed evidence of congestive heart failure/pulmonary edema. Patient has been on diuretics in the form of Lasix 20 mg twice a day, and I have increased the dose to 40 mg twice a day today. Patient continues to have intermittent cough and wheezing, and on physical examination she does have crackles on the rhonchi bilaterally. She is now on nasal cannula, she was on BiPAP when I saw her in the ER yesterday 11/04/75% FiO2. Patient remains on bronchodilators and on Solu-Medrol. Her PTT today is 49, electrolytes are normal renal profile is normal troponin is 2.270. Objective - Vital Signs Vital signs: Vital Signs Temp 97.0 F L 09/30/21 15:25 Pulse 95 09/30/21 15:56 Resp 18 09/30/21 15:51 BP 136/67 09/30/21 15:51 Pulse Ox 98 09/30/21 15:51 Intake & Output 09/29/21 09/30/21 09/30/21 18:59 06:59 18:59 Intake Total 112.05 100 Output Total 200 400 Balance -87.95 -300 Weight 55.338 kg 65.062 kg Intake: IV 10 100 Invasive Line 2 10 Intake, IV Titration 102.05 Amount Heparin Sod,Pork in 0.45% 102.05 NaCl 25,000 unit In 0.45 % NaCl 1 250ml.bag @ 12 UNITS/KG/HR 6.641 mls/hr IV .Q24H [facility] Rx#: [id number] Output: Urine 200 400 Other: Voiding Method External Catheter External Catheter # Voids 0 1 - Exam GENERAL EXAM: Alert, pleasant 76-year-old female patient, cachectic, on 4 L nasal cannula, O2 saturation 98%. HEAD: Normocephalic. Atraumatic. ENT: PERRLA, EOMI, nonicteric, no neck masses, no JVD. CHEST: No chest wall deformity. LUNGS: Records and rhonchi noted bilaterally. CVS: S1 and S2 normal with no audible murmur, regular rhythm. ABDOMEN: No hepatosplenomegaly, normal bowel sounds, no guarding or rigidity. SPINE: No scoliosis or deformity SKIN: No rashes CENTRAL NERVOUS SYSTEM: Alert oriented 3 deficits. EXTREMITIES: No clubbing edema or cyanosis. - Labs CBC & Chem 7: 09/30/21 04:54 09/30/21 04:54 Labs: Abnormal Lab Results - Last 24 Hours (Table) 09/29/21 09/29/21 09/29/21 Range/Units 15:21 16:50 18:26 Neutrophils # (1.3-7.7) k/uL Lymphocytes # (1.0-4.8) k/uL APTT (22.0-30.0) sec Sodium (137-145) mmol/L Carbon Dioxide (22-30) mmol/L BUN (7-17) mg/dL Glucose (74-99) mg/dL POC Glucose (mg/dL) 332 H 345 H (75-99) mg/dL Calcium (8.4-10.2) mg/dL Magnesium (1.6-2.3) mg/dL Troponin I 2.540 H* (0.000-0.034) ng/mL 09/29/21 09/29/21 09/30/21 Range/Units 20:22 20:26 02:29 Neutrophils # (1.3-7.7) k/uL Lymphocytes # (1.0-4.8) k/uL APTT 44.2 H (22.0-30.0) sec Sodium (137-145) mmol/L Carbon Dioxide (22-30) mmol/L BUN (7-17) mg/dL Glucose (74-99) mg/dL POC Glucose (mg/dL) 301 H (75-99) mg/dL Calcium (8.4-10.2) mg/dL Magnesium (1.6-2.3) mg/dL Troponin I 2.630 H* (0.000-0.034) ng/mL 09/30/21 09/30/21 09/30/21 Range/Units 04:54 04:54 04:54 Neutrophils # 8.0 H (1.3-7.7) k/uL Lymphocytes # 0.7 L (1.0-4.8) k/uL APTT 49.3 H (22.0-30.0) sec Sodium 132 L (137-145) mmol/L Carbon Dioxide 16 L (22-30) mmol/L BUN 24 H (7-17) mg/dL Glucose 199 H (74-99) mg/dL POC Glucose (mg/dL) (75-99) mg/dL Calcium 7.6 L (8.4-10.2) mg/dL Magnesium 2.6 H (1.6-2.3) mg/dL Troponin I (0.000-0.034) ng/mL 09/30/21 09/30/21 09/30/21 Range/Units 04:54 06:09 11:43 Neutrophils # (1.3-7.7) k/uL Lymphocytes # (1.0-4.8) k/uL APTT (22.0-30.0) sec Sodium (137-145) mmol/L Carbon Dioxide (22-30) mmol/L BUN (7-17) mg/dL Glucose (74-99) mg/dL POC Glucose (mg/dL) 190 H 144 H (75-99) mg/dL Calcium (8.4-10.2) mg/dL Magnesium (1.6-2.3) mg/dL Troponin I 2.270 H* (0.000-0.034) ng/mL Assessment and Plan Assessment: Impression: Acute hypoxic respiratory failure, multifactorial secondary to mild intermittent asthma with acute exacerbation and non-ST elevation myocardial infarction with acute pulmonary edema secondary to systolic dysfunction. Hyponatremia. Type 2 diabetes. History of chronic anemia. Benign essential hypertension. History of obstructive sleep apnea syndrome, on CPAP. History of gout. Recommendation: Continue bronchodilators. Continue oxygen and titrate accordingly. Continue IV Solu-Medrol. Continue Symbicort. Reviewed the reports from her cardiac catheterization today, and noted that her LV function is compromised, and her follow-up chest x-ray today is showing ev idence of interstitial edema. Continue diuretics. Monitor closely her electrolytes and renal profile while on diuretics. Lasix increased to 40 mg twice a day. We will continue to follow. Time with Patient: Less than 30
[2021-09-30 17:01] LABS: Glucose,Whole Blood 167 mg/dL (75-99)
[2021-09-30] MEDS: KETOROLAC 0.5% OPHTH DROPS 5 ML BTL RIGHT EYE SCH ×2 (17:13→20:17)
[2021-09-30 18:45] LABS: Glucose,Whole Blood 291 mg/dL (75-99)
[2021-09-30 19:55] LABS: Glucose,Whole Blood 345 mg/dL (75-99)
[2021-09-30] MEDS: MONTELUKAST 10 MG TAB PO SCH (20:16)
[2021-09-30] MEDS: LATANOPROST 0.005% OPHTH DROPS 2.5 ML BTL RIGHT EYE SCH (20:17)
[2021-09-30] MEDS ORDERED: FUROSEMIDE 10 MG/ML 4 ML VIAL IV STA (22:29)
[2021-10-01] MEDS: SODIUM CHLORIDE 0.9% 1,000 ML in EMPTY BAG 1 BAG IV SCH (03:11)
[2021-10-01 06:06] LABS: Glucose,Whole Blood 176 mg/dL (75-99)
[2021-10-01] MEDS: INSULIN ASPART (NovoLOG) 100 UNIT/ML VIAL SQ SCH ×4 (06:13→20:25)
[2021-10-01 06:23] LABS: African American GFR (CKD) >90 (>60 ml/min/1.73 sqM); Anion Gap 8 mmol/L; Blood Urea Nitrogen 32 mg/dL (7-17); Calcium 7.2 mg/dL (8.4-10.2); Carbon Dioxide 24 mmol/L (22-30); Chloride 105 mmol/L (98-107); Glucose 165 mg/dL (74-99); Non-African American GFR(CKD) 84 (>60 ml/min/1.73 sqM); Potassium 3.8 mmol/L (3.5-5.1); Sodium 137 mmol/L (137-145)
[2021-10-01] MEDS ORDERED: HEPARIN SODIUM,PORCINE 10,000 UNIT in SODIUM CHLORIDE 0.9% 1,000 ML IRRIGATION PRN (07:00)
[2021-10-01] MEDS ORDERED: HEPARIN SODIUM,PORCINE 2,500 UNIT in SODIUM CHLORIDE 0.9% 250 ML IRRIGATION PRN (07:00)
[2021-10-01] MEDS: BUDESONIDE 1 MG/2 ML NEBU INHALATION SCH ×2 (07:49→20:31)
[2021-10-01] MEDS: IPRATROPIUM-ALBUTEROL 3 ML NEB INHALATION SCH ×4 (07:49→20:31)
[2021-10-01] MEDS: FORMOTEROL FUMARATE 20 MCG/2 ML NEBU INHALATION SCH ×2 (07:49→20:31)
[2021-10-01] MEDS: ATORVASTATIN 40 MG TAB PO SCH (08:02)
[2021-10-01] MEDS: FUROSEMIDE 40 MG TAB PO SCH ×2 (08:02→16:43)
[2021-10-01] MEDS: CLOPIDOGREL 75 MG TAB PO SCH (08:02)
[2021-10-01] MEDS: FAMOTIDINE 20 MG TAB PO SCH ×2 (08:02→20:25)
[2021-10-01] MEDS: METOPROLOL TARTRATE 25 MG TAB PO SCH ×2 (08:02→20:25)
[2021-10-01] MEDS: ASPIRIN 81 MG PO SCH (08:02)
[2021-10-01] MEDS: SPIRONOLACTONE 25 MG TAB PO SCH (08:02)
[2021-10-01] MEDS: methylPREDNISolone SOD SUCCI 40 MG/ML 1 ML VIAL IV SCH ×3 (08:02→23:18)
[2021-10-01] MEDS: KETOROLAC 0.5% OPHTH DROPS 5 ML BTL RIGHT EYE SCH ×4 (08:03→20:26)
--- NOTE | 2021-10-01 11:06 | ECHOF ---
Referral Reason:mi MEASUREMENTS -------- HEIGHT: 147.3 cm WEIGHT: 66.2 kg BP: 111/71 RVIDd: 2.5 cm (< 3.3) IVSd: 1.2 cm (0.6 - 1.1) LVIDd: 3.5 cm (3.9 - 5.3) LVPWd: 1.2 cm (0.6 - 1.1) IVSs: 1.6 cm LVIDs: 2.2 cm LVPWs: 1.5 cm LA Diam: 3.2 cm (2.7 - 3.8) LAESV Index (A-L): 20.65 ml/m Ao Diam: 2.9 cm (2.0 - 3.7) AV Cusp: 1.7 cm (1.5 - 2.6) MV EXCURSION: 13.362 mm (> 18.000) MV EF SLOPE: 76 mm/s (70 - 150) EPSS: 0.5 cm MV E Jay: 0.86 m/s MV DecT: 147 ms MV A Jay: 1.13 m/s MV E/A Ratio: 0.76 RAP: 5.00 mmHg RVSP: 31.05 mmHg FINDINGS -------- Sinus rhythm. This was a technically adequate study. The left ventricular size is normal. There is borderline concentric left ventricular hypertrophy. Overall left ventricular systolic function is severely impaired with, an EF between 20 - 25 %. The right ventricle is normal in size. Normal LA size by volume 22+/-6 ml/m2. The right atrium is normal in size. Interatrial and interventricular septum intact. There is mild aortic valve sclerosis. There is mild aortic regurgitation. Mild mitral annular calcification present. Mild tricuspid regurgitation present. Right ventricular systolic pressure is normal at < 35 mmHg. Trace/mild (physiologic) pulmonic regurgitation. The aortic root size is normal. Normal inferior vena cava with normal inspiratory collapse consistent with estimated right atrial pre ssure of 5 mmHg. There is no pericardial effusion. CONCLUSIONS -------- 1. The left ventricular size is normal. 2. There is borderline concentric left ventricular hypertrophy. 3. Overall left ventricular systolic function is severely impaired with, an EF between 20 - 25 %. 4. There is mild aortic valve sclerosis. 5. There is mild aortic regurgitation. 6. Mild mitral annular calcification present. 7. Mild tricuspid regurgitation present. 8. Trace/mild (physiologic) pulmonic regurgitation. 9. There is no pericardial effusion. [employer]: Vidhi Montgomery RDCS
[2021-10-01] MEDS ORDERED: FUROSEMIDE 10 MG/ML 4 ML VIAL IV STA (11:47)
[2021-10-01 11:49] LABS: Glucose,Whole Blood 241 mg/dL (75-99)
--- NOTE | 2021-10-01 14:01 | P.PN ---
Subjective Progress Note Date: 10/01/21 HISTORY OF PRESENT ILLNESS: This is a 76 year old female who presented to Hospital secondary to shortness of breath and chest pain. Patient was found to have abnormal troponins. She u nderwent cardiac cath yesterday with Dr. Gilmore revealing normal coronary arteries with elevated LVEDP of 25-30. Echocardiogram completed reveals ejection fraction 20-25%, mild aortic regurgitation, mild tricuspid regurgitation. The patient currently denies chest pain or pressure. She reports mild shortness of breath. According to the family member at the bedside, she has been on and off of the BiPAP. PHYSICAL EXAM: VITAL SIGNS: Reviewed. GENERAL: Well-developed in no acute distress. NECK: Supple. No JVD or thyromegaly LUNGS: Respirations even and unlabored. Lungs diminished bilaterally with bibasilar rales and rhonchi noted. HEART: Regular rate and rhythm. S1 and S2 heard. Systolic murmur noted. EXTREMITIES: Normal range of motion. No clubbing or cyanosis. Peripheral pulses intact. Trace lower extremity edema ASSESSMENT: Non-STEMI, s/p cardiac cath revealing normal coronary arteries Acute asthma exacerbation Acute hypoxic respiratory failure Nonischemic cardiomyopathy, Takotsubo syndrome, ejection fraction 20-25% Acute systolic congestive heart failure Hypertension Diabetes History of obstructive sleep apnea PLAN: Pulmonary following Agreeable to diuretics secondary to SOB and elevated LVEDP on cardiac catherization Continue additional cardiac medications Further recommendations pending patient course Nurse practitioner note has been reviewed by physician. Signing provider agrees with the documented findings, assessment, and plan of care. Objective - Vital Signs Vital signs: Vital Signs Temp 97.2 F L 10/01/21 12:00 Pulse 74 10/01/21 12:00 Resp 19 10/01/21 12:00 BP 109/58 10/01/21 12:00 Pulse Ox 94 L 10/01/21 12:00 Intake & Output 09/30/21 10/01/21 10/01/21 18:59 06:59 18:59 Intake Total 100 Output Total 800 280 Balance -700 -280 Weight 66.5 kg Intake: IV 100 Output: Urine 800 280 Other: Voiding Method External Catheter External Catheter External Catheter # Voids 1 - Labs CBC & Chem 7: 09/30/21 04:54 10/01/21 05:35 Labs: Abnormal Lab Results - Last 24 Hours (Table) 09/30/21 09/30/21 09/30/21 Range/Units 16:53 18:39 19:54 BUN (7-17) mg/dL Glucose (74-99) mg/dL POC Glucose (mg/dL) 167 H 291 H 345 H (75-99) mg/dL Calcium (8.4-10.2) mg/dL 10/01/21 10/01/21 10/01/21 Range/Units 05:35 06:04 11:41 BUN 32 H (7-17) mg/dL Glucose 165 H (74-99) mg/dL POC Glucose (mg/dL) 176 H 241 H (75-99) mg/dL Calcium 7.2 L (8.4-10.2) mg/dL
--- NOTE | 2021-10-01 14:21 | P.PN ---
Subjective Progress Note Date: 10/01/21 Principal diagnosis: Dyspnea On 10/01/2021 patient seen in follow-up on selective care unit, she sits up in the chair, she is currently off BiPAP, and on 4 L of oxygen, pulse ox is 97%, she did wear BiPAP last night with pressures of 12/6 and FiO2 of 60%. Overall she is breathing better today, still has diffuse rhonchi and rales throughout the lung meredith, she is currently on oral Lasix, she is in -970 mL net fluid balance over the last 24 hours, she has been transitioned to oral Lasix 40 mg by mouth twice daily, she remains on IV Solu-Medrol 40 mg every 8 hours, and neb ulized bronchodilators. She denies any chest pain. Her echocardiogram showed borderline concentric LVH, and severely impaired LV function with EF of 20-25%. Today's labs have been reviewed, electrolytes are within normal limits, B1 is 32 creatinine 0.69. Objective - Vital Signs Vital signs: Vital Signs Temp 97.2 F L 10/01/21 12:00 Pulse 74 10/01/21 12:00 Resp 19 10/01/21 12:00 BP 109/58 10/01/21 12:00 Pulse Ox 94 L 10/01/21 12:00 Intake & Output 09/30/21 10/01/21 10/01/21 18:59 06:59 18:59 Intake Total 100 Output Total 800 280 Balance -700 -280 Weight 66.5 kg Intake: IV 100 Output: Urine 800 280 Other: Voiding Method External Catheter External Catheter External Catheter # Voids 1 - Exam GENERAL EXAM: Alert, very pleasant, 76-year-old white female, on 4 L of oxygen and the pulse ox of 97% comfortable in no apparent distress. HEAD: Normocephalic/atraumatic. EYES: Normal reaction of pupils, equal size. Conjunctiva pink, sclera white. NOSE: Clear with pink turbinates. THROAT: No erythema or exudates. NECK: No masses, no JVD, no thyroid enlargement, no adenopathy. CHEST: No chest wall deformity. Symmetrical expansion. LUNGS: Equal air entry with diffuse wheezes and rhonchi CVS: Regular rate and rhythm, normal S1 and S2, no gallops, no murmurs, no rubs ABDOMEN: Soft, nontender. No hepatosplenomegaly, normal bowel sounds, no guarding or rigidity. EXTREMITIES: No clubbing, no edema, no cyanosis, 2+ pulses and upper and lower extremities. MUSCULOSKELETAL: Muscle strength and tone normal. SPINE: No scoliosis or deformity SKIN: No rashes CENTRAL NERVOUS SYSTEM: Alert and oriented -3. No focal deficits, tone is normal in all 4 extremities. PSYCHIATRIC: Alert and oriented -3. Appropriate affect. Intact judgment and insight. - Labs CBC & Chem 7: 09/30/21 04:54 10/01/21 05:35 Labs: Abnormal Lab Results - Last 24 Hours (Table) 09/30/21 09/30/21 09/30/21 Range/Units 16:53 18:39 19:54 BUN (7-17) mg/dL Glucose (74-99) mg/dL POC Glucose (mg/dL) 167 H 291 H 345 H (75-99) mg/dL Calcium (8.4-10.2) mg/dL 10/01/21 10/01/21 10/01/21 Range/Units 05:35 06:04 11:41 BUN 32 H (7-17) mg/dL Glucose 165 H (74-99) mg/dL POC Glucose (mg/dL) 176 H 241 H (75-99) mg/dL Calcium 7.2 L (8.4-10.2) mg/dL Assessment and Plan Plan: Assessment: #1. Acute hypoxic rest she failure, multifactorial, secondary to acute exac erbation of CHF with systolic dysfunction, non-ST elevated myocardial infarction and acute exacerbation of mild intermittent bronchial asthma #2. Hyponatremia, hypervolemic, improved #3. Nonischemic cardiomyopathy, Supra syndrome, ejection fraction of 20-25% #4. Hypertension #5. Diabetes type 2 #6. History of obstructive sleep apnea Plan: We will give the patient an extra dose of IV Lasix 40 mg now, Continue oral Lasix 40 mg twice daily Obtain follow-up chest x-ray tomorrow Follow-up labs including electrolytes and renal profile Continue IV steroids and nebulized bronchodilators Continue to follow I performed a history & physical examination of the patient and discussed their management with my nurse practitioner, Roz Jacobo. I reviewed the nurse practitioner's note and agree with the documented findings and plan of care. Lung sounds are positive for diffuse crackles throughout the lung meredith. The findings and the impression was discussed with the patient. I attest to the documentation by the nurse practitioner. Time with Patient: Less than 30
[2021-10-01 16:57] LABS: Glucose,Whole Blood 300 mg/dL (75-99)
[2021-10-01 20:13] LABS: Glucose,Whole Blood 339 mg/dL (75-99)
[2021-10-01] MEDS: MONTELUKAST 10 MG TAB PO SCH (20:25)
[2021-10-01] MEDS: LATANOPROST 0.005% OPHTH DROPS 2.5 ML BTL RIGHT EYE SCH (20:26)
[2021-10-02 06:08] LABS: Glucose,Whole Blood 251 mg/dL (75-99)
[2021-10-02] MEDS: INSULIN ASPART (NovoLOG) 100 UNIT/ML VIAL SQ SCH ×4 (06:20→22:41)
[2021-10-02 06:38] LABS: African American GFR (CKD) >90 (>60 ml/min/1.73 sqM); Anion Gap 7 mmol/L; Blood Urea Nitrogen 28 mg/dL (7-17); Calcium 7.8 mg/dL (8.4-10.2); Carbon Dioxide 26 mmol/L (22-30); Chloride 106 mmol/L (98-107); Glucose 231 mg/dL (74-99); Non-African American GFR(CKD) >90 (>60 ml/min/1.73 sqM); Potassium 3.4 mmol/L (3.5-5.1); Sodium 139 mmol/L (137-145)
[2021-10-02] MEDS: CLOPIDOGREL 75 MG TAB PO SCH (07:29)
[2021-10-02] MEDS: ASPIRIN 81 MG PO SCH (07:29)
[2021-10-02] MEDS: FAMOTIDINE 20 MG TAB PO SCH ×2 (07:29→22:42)
[2021-10-02] MEDS: FUROSEMIDE 40 MG TAB PO SCH ×2 (07:29→15:14)
[2021-10-02] MEDS: METOPROLOL TARTRATE 25 MG TAB PO SCH (07:29)
[2021-10-02] MEDS: SPIRONOLACTONE 25 MG TAB PO SCH (07:29)
[2021-10-02] MEDS: ATORVASTATIN 40 MG TAB PO SCH (07:29)
[2021-10-02] MEDS: KETOROLAC 0.5% OPHTH DROPS 5 ML BTL RIGHT EYE SCH ×4 (07:30→22:42)
[2021-10-02] MEDS: methylPREDNISolone SOD SUCCI 40 MG/ML 1 ML VIAL IV SCH ×2 (07:30→18:12)
[2021-10-02] MEDS: BUDESONIDE 1 MG/2 ML NEBU INHALATION SCH ×2 (07:31→21:33)
[2021-10-02] MEDS: IPRATROPIUM-ALBUTEROL 3 ML NEB INHALATION SCH ×5 (07:31→21:33)
[2021-10-02] MEDS: FORMOTEROL FUMARATE 20 MCG/2 ML NEBU INHALATION SCH ×2 (07:31→21:33)
--- NOTE | 2021-10-02 09:16 | XR ---
EXAMINATION TYPE: XR chest 1V portable DATE OF EXAM: 10/02/2021 COMPARISON: 09/30/2021 INDICATION: CHF short of breath TECHNIQUE: Single frontal view of the chest is obtained. FINDINGS: The heart size is mildly prominent. The pulmonary vasculature is prominent. Mild by basilar infiltrates are present. Correlate for atypical pulmonary edema. Moderate volume over load is likely present. Small left pleural effusion is present. IMPRESSION: 1. Clinical correlation recommended for congestive heart failure. Some atypical pulmonary edema may b e at the lung bases. Small left pleural effusion is present. Findings have slightly improved over the interval
[2021-10-02 11:43] LABS: Glucose,Whole Blood 281 mg/dL (75-99)
--- NOTE | 2021-10-02 12:20 | P.PN ---
Subjective Progress Note Date: 10/02/21 Principal diagnosis: Dyspnea On 10/01/2021 patient seen in follow-up on selective care unit, she sits up in the chair, she is currently off BiPAP, and on 4 L of oxygen, pulse ox is 97%, she did wear BiPAP last night with pressures of 12/6 and FiO2 of 60%. Overall she is breathing better today, still has diffuse rhonchi and rales throughout the lung meredith, she is currently on oral Lasix, she is in -970 mL net fluid balance over the last 24 hours, she has been transitioned to oral Lasix 40 mg by mouth twice daily, she remains on IV Solu-Medrol 40 mg every 8 hours, and neb ulized bronchodilators. She denies any chest pain. Her echocardiogram showed borderline concentric LVH, and severely impaired LV function with EF of 20-25%. Today's labs have been reviewed, electrolytes are within normal limits, BUN is 32 creatinine 0.69. On 10/02/2021 patient seen in follow-up. Patient is breathing more comfortably, she is currently on 2 L of oxygen with a pulse ox of 94-96%, she has been afebrile, denied any chest pain, no cough, no phlegm production, minimal wheezing. Today's chest x-ray shows mild bibasilar infiltrates, most likely related to atypical pulmonary edema, moderate volume overload. And small pleural effusion is present, overall findings are improved compared most recent chest x-ray from 09/30/2021. Patient is currently on oral Lasix 40 mg twice daily. She is in -940 mL net fluid balance. No lower extremity edema. Today's labs have been reviewed, sodium is 139, potassium 3.4, chloride is 106, BUN is 28, creatinine is 0.5. Patient is on nebulized bronchodilators, and IV Solu- Medrol 40 mg every 8 hours. Echocardiogram has been completed showing severely impaired left ventricle systolic function with EF of 20-25%, mild aortic valve sclerosis and regurgitation, mild TR. Patient is on Lopressor 25 mg twice daily, she is on oral Lasix, Aldactone, Lipitor 40 mg daily, aspirin and Plavix, cardiology is following. Objective - Vital Signs Vital signs: Vital Signs Temp 98.7 F 10/02/21 08:00 Pulse 94 10/02/21 11:16 Resp 18 10/02/21 08:00 BP 106/60 10/02/21 08:00 Pulse Ox 96 10/02/21 08:00 Intake & Output 10/01/21 10/02/21 10/02/21 18:59 06:59 18:59 Intake Total 240 Output Total 550 390 Balance -550 -390 240 Weight 64.6 kg Intake: Oral 240 Output: Urine 550 390 Other: Voiding Method External Catheter External Catheter # Voids 2 1 # Bowel Movements 1 - Exam GENERAL EXAM: Alert, very pleasant, 76-year-old white female, on 4 L of oxygen and the pulse ox of 97% comfortable in no apparent distress. HEAD: Normocephalic/atraumatic. EYES: Normal reaction of pupils, equal size. Conjunctiva pink, sclera white. NOSE: Clear with pink turbinates. THROAT: No erythema or exudates. NECK: No masses, no JVD, no thyroid enlargement, no adenopathy. CHEST: No chest wall deformity. Symmetrical expansion. LUNGS: Equal air entry with mild end expiratory wheezes CVS: Regular rate and rhythm, normal S1 and S2, no gallops, no murmurs, no rubs ABDOMEN: Soft, nontender. No hepatosplenomegaly, normal bowel sounds, no guarding or rigidity. EXTREMITIES: No clubbing, no edema, no cyanosis, 2+ pulses and upper and lower extremities. MUSCULOSKELETAL: Muscle strength and tone normal. SPINE: No scoliosis or deformity SKIN: No rashes CENTRAL NERVOUS SYSTEM: Alert and oriented -3. No focal deficits, tone is normal in all 4 extremities. PSYCHIATRIC: Alert and oriented -3. Appropriate affect. Intact judgment and insight. - Labs CBC & Chem 7: 09/30/21 04:54 10/02/21 05:29 Labs: Abnormal Lab Results - Last 24 Hours (Table) 10/01/21 10/01/21 10/02/21 Range/Units 16:36 20:11 05:29 Potassium 3.4 L (3.5-5.1) mmol/L BUN 28 H (7-17) mg/dL Glucose 231 H (74-99) mg/dL POC Glucose (mg/dL) 300 H 339 H (75-99) mg/dL Calcium 7.8 L (8.4-10.2) mg/dL 11/02/21 11/02/21 Range/Units 06:06 11:42 Potassium (3.5-5.1) mmol/L BUN (7-17) mg/dL Glucose (74-99) mg/dL POC Glucose (mg/dL) 251 H 281 H (75-99) mg/dL Calcium (8.4-10.2) mg/dL Assessment and Plan Plan: Assessment: #1. Acute hypoxic rest she failure, multifactorial, secondary to acute exacerbation of CHF with systolic dysfunction, non-ST elevated myocardial infarction and acute exacerbation of mild intermittent bronchial asthma #2. Hyponatremia, hypervolemic, improved #3. 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 Hypertension #5. Diabetes type 2 #6. History of obstructive sleep apnea Plan: Patient is improving Still bronchospastic Vital signs have been stable with chest pain Wean FiO2 Continue current medical treatment Continue bronchodilators and IV steroids Continue oral diuretics Follow-up chest x-ray tomorrow We will start weaning IV steroids tomorrow If continues to improve we'll consider possible discharge if cleared by cardiology in the next 24-48 hours Patient will continue on Serevent inhaler, Singulair, and DuoNeb nebulized treatments at home after discharge, in addition to prednisone taper She will need outpatient follow-up with Dr. Ramirez in the office in one week. I performed a history & physical examination of the patient and discussed their management with my nurse practitioner, Roz Jacobo. I reviewed the nurse practitioner's note and agree with the documented findings and plan of care. Lung sounds are positive for diffuse crackles throughout the lung meredith. The findings and the impression was discussed with the patient. I attest to the documentation by the nurse practitioner. Time with Patient: Less than 30
[2021-10-02] MEDS ORDERED: Potassium Replacement Protocol 1 EACH MISC MISCELLANE PRN (13:42)
--- NOTE | 2021-10-02 13:51 | P.PN ---
Subjective Progress Note Date: 10/02/21 HISTORY OF PRESENT ILLNESS: This is a 76 year old female who presented to Hospital secondary to shortness of breath and chest pain. Patient was found to have abnormal troponins. She u nderwent cardiac cath yesterday with Dr. Gilmore revealing normal coronary arteries with elevated LVEDP of 25-30. Echocardiogram completed reveals ejection fraction 20-25%, mild aortic regurgitation, mild tricuspid regurgitation. The patient currently denies chest pain or pressure. She reports mild shortness of breath. According to the family member at the bedside, she has been on and off of the BiPAP. 10/02/2021 Patient examined this morning at the bedside. She denies chest pain or pressure . She reports shortness of breath that is improving. She remains on oral diuretics. BUN 28. Creatinine 0.55. Potassium 3.4. Patient remains on IV steroids per pulmonary PHYSICAL EXAM: VITAL SIGNS: Reviewed. GENERAL: Well-developed in no acute distress. NECK: Supple. No JVD or thyromegaly LUNGS: Respirations even and unlabored. Lungs diminished bilaterally with bibasilar rales and rhonchi noted. HEART: Regular rate and rhythm. S1 and S2 heard. Systolic murmur noted. EXTREMITIES: Normal range of motion. No clubbing or cyanosis. Peripheral pulses intact. Trace lower extremity edema ASSESSMENT: Non-STEMI, s/p cardiac cath revealing normal coronary arteries Acute asthma exacerbation Acute hypoxic respiratory failure Nonischemic cardiomyopathy, Takotsubo syndrome, ejection fraction 20-25% Acute systolic congestive heart failure Hypertension Diabetes History of obstructive sleep apnea PLAN: Pulmonary following Continue current cardiac medications Patient is currently stable from a cardiac perspective Further recommendations pending patient course Nurse practitioner note has been reviewed by physician. Signing provider agrees with the documented findings, assessment, and plan of care. Objective - Vital Signs Vital signs: Vital Signs Temp 96.3 F L 10/02/21 12:00 Pulse 51 L 10/02/21 12:00 Resp 22 10/02/21 12:00 BP 155/89 10/02/21 12:00 Pulse Ox 94 L 10/02/21 12:00 Intake & Output 10/01/21 10/02/21 10/02/21 18:59 06:59 18:59 Intake Total 240 Output Total 550 390 Balance -550 -390 240 Weight 64.6 kg Intake: Oral 240 Output: Urine 550 390 Other: Voiding Method External Catheter External Catheter # Voids 2 1 # Bowel Movements 1 - Labs CBC & Chem 7: 09/30/21 04:54 10/02/21 05:29 Labs: Abnormal Lab Results - Last 24 Hours (Table) 10/01/21 10/01/21 10/02/21 Range/Units 16:36 20:11 05:29 Potassium 3.4 L (3.5-5.1) mmol/L BUN 28 H (7-17) mg/dL Glucose 231 H (74-99) mg/dL POC Glucose (mg/dL) 300 H 339 H (75-99) mg/dL Calcium 7.8 L (8.4-10.2) mg/dL 10/02/21 10/02/21 Range/Units 06:06 11:42 Potassium (3.5-5.1) mmol/L BUN (7-17) mg/dL Glucose (74-99) mg/dL POC Glucose (mg/dL) 251 H 281 H (75-99) mg/dL Calcium (8.4-10.2) mg/dL
[2021-10-02] MEDS ORDERED: HEPARIN SODIUM 1,000 UN/ML (10ML VL) IV ONE (13:59)
[2021-10-02] MEDS ORDERED: HEPARIN SODIUM 1,000 UN/ML (10ML VL) IV PRN (13:59)
[2021-10-02] MEDS ORDERED: HEPARIN SOD,PORK IN 0.45% NACL 25,000 UNIT in 0.45% NACL 1 250ML.BAG IV SCH (14:00)
[2021-10-02] MEDS ORDERED: METOPROLOL TARTRATE 50 MG TAB PO SCH ×2 (14:15→21:00)
[2021-10-02] MEDS: POTASSIUM CHLORIDE ER 20 MEQ TAB.ER PO SCH ×2 (14:20→15:14)
[2021-10-02] MEDS ORDERED: IPRATROPIUM-ALBUTEROL 3 ML NEB INHALATION PRN (15:33)
[2021-10-02 16:32] LABS: Partial Thromboplastin Time 88.4 sec (22.0-30.0); Prothrombin Time 10.9 sec (9.0-12.0)
[2021-10-02 16:43] LABS: Glucose,Whole Blood 385 mg/dL (75-99)
[2021-10-02] MEDS ORDERED: METOPROLOL TARTRATE 25 MG TAB PO STA (17:04)
[2021-10-02] MEDS ORDERED: METOPROLOL TARTRATE 5 MG/5 ML VIAL IVP STA (17:04)
--- NOTE | 2021-10-02 17:24 | P.PN ---
Subjective Progress Note Date: 10/02/21 This is a pleasant 76-year-old female admitted with acute hypoxic respiratory failure secondary to acute CHF exacerbation, acute asthma exacerbation as well as acute NSTEMI/Takotsubo syndrome, ejection fraction of 20-25% and multiple other medical issues. Diuresing well on oral Lasix with 24-hour I&O reflecting a negative fluid balance. Maintained O2 sats in the mid 90s on 2 L nasal cannula. Maintained on nebulized bronchodilators, IV steroids, bronchospastic- improving. Afebrile. Labs pending. Chest x-ray reporting prominent pulmonary vasculature, mild basilar infiltrates, atypical pulmonary edema with moderate volume overload, small left pleural effusion. Denies chest pain, palpitations. Objective - Vital Signs Vital signs: Vital Signs Temp 97.4 F L 10/02/21 16:00 Pulse 164 H 10/02/21 16:00 Resp 18 10/02/21 16:00 BP 130/74 10/02/21 16:00 Pulse Ox 93 L 10/02/21 16:00 Intake & Output 10/01/21 10/02/21 10/02/21 18:59 06:59 18:59 Intake Total 480 Output Total 550 390 Balance -550 -390 480 Weight 64.6 kg Intake: Oral 480 Output: Urine 550 390 Other: Voiding Method External Catheter External Catheter # Voids 2 2 # Bowel Movements 1 - Exam PHYSICAL EXAMINATION: GENERAL: Patient is alert and oriented x3,NAD HEENT: Pupils are round and equally reacting to light. EOMI. No scleral icterus. No conjunctival pallor. Oral mucosa moist. CARDIOVASCULAR: S1 and S2 present. No murmurs, rubs, or gallops. PULMONARY: Equal air entry into bilateral lung meredith , scattered rhonchi with fine expiratory wheezing ABDOMEN: Soft, nontender, nondistended, normoactive bowel sounds. No palpable organomegaly. EXTREMITIES: No cyanosis, clubbing, or pedal edema. NEUROLOGICAL: Gross neurological examination did not reveal any focal deficits. SKIN: Warm and dry, No rashes. - Labs CBC & Chem 7: 09/30/21 04:54 10/02/21 05:29 Labs: Abnormal Lab Results - Last 24 Hours (Table) 10/01/21 10/02/21 10/02/21 Range/Units 20:11 05:29 06:06 APTT (22.0-30.0) sec Potassium 3.4 L (3.5-5.1) mmol/L BUN 28 H (7-17) mg/dL Glucose 231 H (74-99) mg/dL POC Glucose (mg/dL) 339 H 251 H (75-99) mg/dL Calcium 7.8 L (8.4-10.2) mg/dL 10/02/21 10/02/21 10/02/21 Range/Units 11:42 15:38 16:42 APTT 88.4 H (22.0-30.0) sec Potassium (3.5-5.1) mmol/L BUN (7-17) mg/dL Glucose (74-99) mg/dL POC Glucose (mg/dL) 281 H 385 H (75-99) mg/dL Calcium (8.4-10.2) mg/dL Assessment and Plan Assessment: Acute non-STEMI, nonischemic cardiomyopathy,Takotsubo syndrome, EF 20-25% Acute CHF exacerbation with systolic dysfunction Acute asthma exacerbation Diabetes mellitus II, uncontrolled, hyperglycemic Hypertension Hyperlipidemia Hypovolemic hyponatremia, resolved Obesity, BMI 29.8 Gastroesophageal reflux disease Obstructive Sleep apnea, with CPAP, BiPAP at home Anxiety Plan: Continue on current medication regime ,monitoring and symptomatic treatment. Labs pending. Aggressive pulmonary toileting with nebulized bronch odilators, IV steroids. Weaning of steroids as per pulmonary. Discharge planning in progress for tomorrow pending final DC recommendations and clearance by pulmonary and cardiology. The impression and plan of care has been dictated as directed. : I performed a history and examination of this patient, discussed the same with the dictator. I agree with the dictator's note ,documented as a scribe. Any additional findings or plans will be noted.
[2021-10-02] MEDS ORDERED: FUROSEMIDE 10 MG/ML 4 ML VIAL IV STA (18:04)
[2021-10-02] MEDS ORDERED: DEXTROSE 5% IN WATER 100 ML with AMIODARONE 150 MG IV ONE (19:28)
[2021-10-02] MEDS ORDERED: AMIODARONE 360 MG in DEXTROSE 5% IN WATER 200 ML IV ONE ×2 (19:29)
[2021-10-02 19:38] LABS: Glucose,Whole Blood 270 mg/dL (75-99)
[2021-10-02] MEDS ORDERED: AMIODARONE IN DEXTROSE,ISO-OSM 150 MG/100 ML PLAST..BAG IV ONE (19:50)
[2021-10-02] MEDS ORDERED: AMIODARONE IN DEXTROSE,ISO-OSM 360 MG/200 ML PLAST..BAG IV ONE (19:50)
[2021-10-02] MEDS: LATANOPROST 0.005% OPHTH DROPS 2.5 ML BTL RIGHT EYE SCH (22:31)
[2021-10-02] MEDS: MONTELUKAST 10 MG TAB PO SCH (22:42)
[2021-10-03] MEDS: methylPREDNISolone SOD SUCCI 40 MG/ML 1 ML VIAL IV SCH ×4 (00:25→23:08)
[2021-10-03] MEDS ORDERED: AMIODARONE 450 MG in DEXTROSE 5% IN WATER 250 ML IV SCH ×2 (01:28)
[2021-10-03] MEDS ORDERED: FUROSEMIDE 10 MG/ML 4 ML VIAL IV STA (04:11)
[2021-10-03 06:20] LABS: Glucose,Whole Blood 182 mg/dL (75-99)
[2021-10-03] MEDS: INSULIN ASPART (NovoLOG) 100 UNIT/ML VIAL SQ SCH ×4 (06:28→20:37)
[2021-10-03] MEDS: FORMOTEROL FUMARATE 20 MCG/2 ML NEBU INHALATION SCH ×2 (07:32→20:50)
[2021-10-03] MEDS: BUDESONIDE 1 MG/2 ML NEBU INHALATION SCH ×2 (07:32→20:50)
[2021-10-03] MEDS: IPRATROPIUM-ALBUTEROL 3 ML NEB INHALATION SCH ×4 (07:33→20:50)
[2021-10-03] MEDS: FUROSEMIDE 40 MG TAB PO SCH ×2 (08:16→16:35)
[2021-10-03] MEDS: ATORVASTATIN 40 MG TAB PO SCH (08:16)
[2021-10-03] MEDS: CLOPIDOGREL 75 MG TAB PO SCH (08:16)
[2021-10-03] MEDS: FAMOTIDINE 20 MG TAB PO SCH ×2 (08:16→20:36)
[2021-10-03] MEDS: ASPIRIN 81 MG PO SCH (08:16)
[2021-10-03] MEDS: KETOROLAC 0.5% OPHTH DROPS 5 ML BTL RIGHT EYE SCH ×4 (08:17→20:55)
[2021-10-03] MEDS: SPIRONOLACTONE 25 MG TAB PO SCH (08:18)
[2021-10-03 10:24] LABS: INR 1.1 (<1.2); Partial Thromboplastin Time 54.7 sec (22.0-30.0); Prothrombin Time 11.5 sec (9.0-12.0)
[2021-10-03 10:33] LABS: African American GFR (CKD) >90 (>60 ml/min/1.73 sqM); Anion Gap 9 mmol/L; Blood Urea Nitrogen 38 mg/dL (7-17); Calcium 7.5 mg/dL (8.4-10.2); Carbon Dioxide 25 mmol/L (22-30); Chloride 99 mmol/L (98-107); Glucose 425 mg/dL (74-99); Magnesium 2.1 mg/dL (1.6-2.3); Non-African American GFR(CKD) 87 (>60 ml/min/1.73 sqM); Potassium 3.6 mmol/L (3.5-5.1); Sodium 133 mmol/L (137-145)
[2021-10-03 10:41] LABS: HCT 42.5 % (34.0-46.0); HGB 13.7 gm/dL (11.4-16.0); MCH 30.1 pg (25.0-35.0); MCHC 32.3 g/dL (31.0-37.0); MCV 93.3 fL (80.0-100.0); Mean Platelet Volume 8.6; Platelet Count 227 k/uL (150-450); RBC 4.56 m/uL (3.80-5.40); RDW 13.5 % (11.5-15.5); WBC 15.6 k/uL (3.8-10.6)
[2021-10-03 11:35] LABS: Glucose,Whole Blood 341 mg/dL (75-99)
[2021-10-03] MEDS: METOPROLOL TARTRATE 25 MG TAB PO SCH ×2 (11:39→20:37)
--- NOTE | 2021-10-03 12:04 | P.PN ---
Subjective Progress Note Date: 10/03/21 This is a pleasant 76-year-old female admitted with acute hypoxic respiratory failure secondary to acute CHF exacerbation, acute asthma exacerbation as well as acute NSTEMI/Takotsubo syndrome, ejection fraction of 20-25% and multiple other medical issues. Diuresing well on oral Lasix with 24-hour I&O reflecting a negative fluid balance. Maintained O2 sats in the mid 90s on 2 L nasal cannula. Maintained on nebulized bronchodilators, IV steroids, bronchospastic- improving. Afebrile. Labs pending. Chest x-ray reporting prominent pulmonary vasculature, mild basilar infiltrates, atypical pulmonary edema with moderate volume overload, small left pleural effusion. Denies chest pain, palpitations. 10/03/21 yesterday afternoon developed atrial fibrillation with RVR, beta kelly dose increased, heparin drip initiated. Wheezy this morning with congested cough, telemetry currently controlled A. fib but reports that the night heart rate up into the 130s to 160s. Required BiPAP earlier this morning, O2 sats decreased to 91% on 4 L nasal cannula. Afebrile, labs pending. Denies chest pain, palpitations. Objective - Vital Signs Vital signs: Vital Signs Temp 97.6 F 10/03/21 08:00 Pulse 85 10/03/21 08:00 Resp 22 10/03/21 08:00 BP 114/57 10/03/21 08:00 Pulse Ox 95 10/03/21 08:00 Intake & Output 10/02/21 10/03/21 10/03/21 18:59 06:59 18:59 Intake Total 514.238 120 Output Total 250 Balance 514.238 -250 120 Weight 65.5 kg Intake: Intake, IV Titration 34.238 Amount Heparin Sod,Pork in 0.45% 34.238 NaCl 25,000 unit In 0.45 % NaCl 1 250ml.bag @ 12 UNITS/KG/HR 7.752 mls/hr IV .Q24H [facility] Rx#: [id number] Oral 480 120 Output: Urine 250 Other: Voiding Method External Catheter External Catheter External Catheter # Voids 2 # Bowel Movements 1 - Exam PHYSICAL EXAMINATION: GENERAL: Patient is alert and oriented x3,NAD HEENT: Pupils are round and equally reacting to light. EOMI. No scleral icterus. No conjunctival pallor. Oral mucosa moist. CARDIOVASCULAR: S1 and S2. Irregular. No murmurs, rubs, or gallops. PULMONARY: Equal air entry into bilateral lung meredith , scattered rhonchi with expiratory wheezing ABDOMEN: Soft, nontender, nondistended, normoactive bowel sounds. No palpable organomegaly. EXTREMITIES: No cyanosis, clubbing, or pedal edema. NEUROLOGICAL: Gross neurological examination did not reveal any focal deficits. SKIN: Warm and dry, No rashes. - Labs CBC & Chem 7: 10/03/21 09:50 10/03/21 09:50 Labs: Abnormal Lab Results - Last 24 Hours (Table) 10/02/21 10/02/21 10/02/21 Range/Units 05:29 15:38 16:42 WBC (3.8-10.6) k/uL APTT 88.4 H (22.0-30.0) sec Sodium (137-145) mmol/L BUN (7-17) mg/dL Glucose (74-99) mg/dL POC Glucose (mg/dL) 385 H (75-99) mg/dL Calcium (8.4-10.2) mg/dL Magnesium 2.6 H (1.6-2.3) mg/dL 10/02/21 10/03/21 10/03/21 Range/Units 19:36 00:51 06:19 WBC (3.8-10.6) k/uL APTT 54.8 H (22.0-30.0) sec Sodium (137-145) mmol/L BUN (7-17) mg/dL Glucose (74-99) mg/dL POC Glucose (mg/dL) 270 H 182 H (75-99) mg/dL Calcium (8.4-10.2) mg/dL Magnesium (1.6-2.3) mg/dL 10/03/21 10/03/21 10/03/21 Range/Units 09:50 09:50 09:50 WBC 15.6 H (3.8-10.6) k/uL APTT 54.7 H (22.0-30.0) sec Sodium 133 L (137-145) mmol/L BUN 38 H (7-17) mg/dL Glucose 425 H (74-99) mg/dL POC Glucose (mg/dL) (75-99) mg/dL Calcium 7.5 L (8.4-10.2) mg/dL Magnesium (1.6-2.3) mg/dL 10/03/21 Range/Units 11:33 WBC (3.8-10.6) k/uL APTT (22.0-30.0) sec Sodium (137-145) mmol/L BUN (7-17) mg/dL Glucose (74-99) mg/dL POC Glucose (mg/dL) 341 H (75-99) mg/dL Calcium (8.4-10.2) mg/dL Magnesium (1.6-2.3) mg/dL Assessment and Plan Assessment: Acute non-STEMI, nonischemic cardiomyopathy,Takotsubo syndrome, EF 20-25% Acute CHF exacerbation with systolic dysfunction Acute asthma exacerbation A. fib with RVR Diabetes mellitus II, uncontrolled, hyperglycemic Hypertension Hyperlipidemia Hypovolemic hyponatremia, resolved Obesity, BMI 29.8 Gastroesophageal reflux disease Obstructive Sleep apnea, with CPAP, BiPAP at home Anxiety Plan: Continue on current medication regime ,monitoring and symptomatic treatment. Labs pending. Anticoagulated on heparin drip .Aggressive pulmonary toileting with nebulized bronchodilators, IV steroids. Weaning of steroids as per pulmonary. The impression and plan of care has been dictated as directed. : I performed a history and examination of this patient, discussed the same with the dictator. I agree with the dictator's note ,documented as a scribe. Any additional findings or plans will be noted.
[2021-10-03 13:08] LABS: Glucose,Whole Blood 363 mg/dL (75-99)
--- NOTE | 2021-10-03 13:13 | P.PN ---
Subjective Progress Note Date: 10/03/21 Principal diagnosis: Dyspnea On 10/01/2021 patient seen in follow-up on selective care unit, she sits up in the chair, she is currently off BiPAP, and on 4 L of oxygen, pulse ox is 97%, she did wear BiPAP last night with pressures of 12/6 and FiO2 of 60%. Overall she is breathing better today, still has diffuse rhonchi and rales throughout the lung meredith, she is currently on oral Lasix, she is in -970 mL net fluid balance over the last 24 hours, she has been transitioned to oral Lasix 40 mg by mouth twice daily, she remains on IV Solu-Medrol 40 mg every 8 hours, and neb ulized bronchodilators. She denies any chest pain. Her echocardiogram showed borderline concentric LVH, and severely impaired LV function with EF of 20-25%. Today's labs have been reviewed, electrolytes are within normal limits, BUN is 32 creatinine 0.69. On 10/02/2021 patient seen in follow-up. Patient is breathing more comfortably, she is currently on 2 L of oxygen with a pulse ox of 94-96%, she has been afebrile, denied any chest pain, no cough, no phlegm production, minimal wheezing. Today's chest x-ray shows mild bibasilar infiltrates, most likely related to atypical pulmonary edema, moderate volume overload. And small pleural effusion is present, overall findings are improved compared most recent chest x-ray from 09/30/2021. Patient is currently on oral Lasix 40 mg twice daily. She is in -940 mL net fluid balance. No lower extremity edema. Today's labs have been reviewed, sodium is 139, potassium 3.4, chloride is 106, BUN is 28, creatinine is 0.5. Patient is on nebulized bronchodilators, and IV Solu- Medrol 40 mg every 8 hours. Echocardiogram has been completed showing severely impaired left ventricle systolic function with EF of 20-25%, mild aortic valve sclerosis and regurgitation, mild TR. Patient is on Lopressor 25 mg twice daily, she is on oral Lasix, Aldactone, Lipitor 40 mg daily, aspirin and Plavix, cardiology is following. On 10/03/2021 patient seen in follow-up. Patient has been noted to be intermittently more dyspneic, and wheezing, and no she is suspected to be intermittently aspirating on food. Swallow evaluation will be obtained, lung sounds are positive for diffuse wheezes, patient is still dyspneic, she is currently on 4 L of oxygen pulse ox is 97%, she is afebrile, today's labs have been reviewed, her white blood cell count has increased to 15.6, hemoglobin is 13.7, sodium is 133, the rest of electrolytes are within normal limits, and her BUN was 38, and creatinine 0.62. Patient did have a couple episodes of increased shortness of breath, wheezing, and pulmonary congestion, fluid overload with suspected, she did receive the next dose of IV Lasix. She is on maintenance dose oral Lasix right now, 40 mg twice a day. She is in negative fluid balance. She has converted to sinus mechanism, rate is controlled, she remains on amiodarone infusion at 0.5 mg per hour, and heparin infusion, cardiology is following, and is planning on transitioning the patient to oral amiodarone and possibly oral anticoagulation. No hemoptysis, patient is not bringing up any phlegm, no chest pain. Objective - Vital Signs Vital signs: Vital Signs Temp 97.6 F 10/03/21 08:00 Pulse 107 H 10/03/21 13:01 Resp 26 H 10/03/21 12:56 BP 114/57 10/03/21 08:00 Pulse Ox 97 10/03/21 12:56 Intake & Output 10/02/21 10/03/21 10/03/21 18:59 06:59 18:59 Intake Total 514.238 120 Output Total 250 Balance 514.238 -250 120 Weight 65.5 kg Intake: Intake, IV Titration 34.238 Amount Heparin Sod,Pork in 0.45% 34.238 NaCl 25,000 unit In 0.45 % NaCl 1 250ml.bag @ 12 UNITS/KG/HR 7.752 mls/hr IV .Q24H [facility] Rx#: [id number] Oral 480 120 Output: Urine 250 Other: Voiding Method External Catheter External Catheter External Catheter # Voids 2 # Bowel Movements 1 - Exam GENERAL EXAM: Alert, very pleasant, 76-year-old white female, on 4 L of oxygen and the pulse ox of 97% comfortable in no apparent distress. HEAD: Normocephalic/atraumatic. EYES: Normal reaction of pupils, equal size. Conjunctiva pink, sclera white. NOSE: Clear with pink turbinates. THROAT: No erythema or exudates. NECK: No masses, no JVD, no thyroid enlargement, no adenopathy. CHEST: No chest wall deformity. Symmetrical expansion. LUNGS: Equal air entry with diffuse wheezes CVS: Regular rate and rhythm, normal S1 and S2, no gallops, no murmurs, no rubs ABDOMEN: Soft, nontender. No hepatosplenomegaly, normal bowel sounds, no guarding or rigidity. EXTREMITIES: No clubbing, no edema, no cyanosis, 2+ pulses and upper and lower extremities. MUSCULOSKELETAL: Muscle strength and tone normal. SPINE: No scoliosis or deformity SKIN: No rashes CENTRAL NERVOUS SYSTEM: Alert and oriented -3. No focal deficits, tone is normal in all 4 extremities. PSYCHIATRIC: Alert and oriented -3. Appropriate affect. Intact judgment and insight. - Labs CBC & Chem 7: 10/03/21 09:50 10/03/21 09:50 Labs: Abnormal Lab Results - Last 24 Hours (Table) 10/02/21 10/02/21 10/02/21 Range/Units 05:29 15:38 16:42 WBC (3.8-10.6) k/uL APTT 88.4 H (22.0-30.0) sec Sodium (137-145) mmol/L BUN (7-17) mg/dL Glucose (74-99) mg/dL POC Glucose (mg/dL) 385 H (75-99) mg/dL Calcium (8.4-10.2) mg/dL Magnesium 2.6 H (1.6-2.3) mg/dL 10/02/21 10/03/21 10/03/21 Range/Units 19:36 00:51 06:19 WBC (3.8-10.6) k/uL APTT 54.8 H (22.0-30.0) sec Sodium (137-145) mmol/L BUN (7-17) mg/dL Glucose (74-99) mg/dL POC Glucose (mg/dL) 270 H 182 H (75-99) mg/dL Calcium (8.4-10.2) mg/dL Magnesium (1.6-2.3) mg/dL 11/03/21 11/03/21 11/03/21 Range/Units 09:50 09:50 09:50 WBC 15.6 H (3.8-10.6) k/uL APTT 54.7 H (22.0-30.0) sec Sodium 133 L (137-145) mmol/L BUN 38 H (7-17) mg/dL Glucose 425 H (74-99) mg/dL POC Glucose (mg/dL) (75-99) mg/dL Calcium 7.5 L (8.4-10.2) mg/dL Magnesium (1.6-2.3) mg/dL 10/03/21 Range/Units 11:33 WBC (3.8-10.6) k/uL APTT (22.0-30.0) sec Sodium (137-145) mmol/L BUN (7-17) mg/dL Glucose (74-99) mg/dL POC Glucose (mg/dL) 341 H (75-99) mg/dL Calcium (8.4-10.2) mg/dL Magnesium (1.6-2.3) mg/dL Assessment and Plan Plan: Assessment: #1. Acute hypoxic respiratory failure, multifactorial, secondary to acute exacerbation of CHF with systolic dysfunction, non-ST elevated myocardial infarction and acute exacerbation of mild intermittent bronchial asthma. On today's chest x-ray on 10/03/2021, patient has new bilateral infiltrates, with a suspicion of aspiration related pneumonia #2. Hyponatremia, hypervolemic, improved #3. 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 Hypertension #5. Diabetes type 2 #6. History of obstructive sleep apnea #7. Acute A. fib with RVR, on amiodarone and heparin infusion, has converted back to sinus rhythm Plan: Today's chest x-ray has been reviewed Patient has bilateral infiltrates, with possibility of aspiration related pneumonia We'll start the patient on Zosyn Continue with maintenance dose Lasix Pro-calcitonin will be sent Titrate FiO2 to keep O2 sats at or above 90-92% Patient back in sinus mechanism, rate control medications and anticoagulation per cardiology Obtain speech evaluation, aspiration is suspected Continue to follow patient's clinical course I performed a history & physical examination of the patient and discussed their management with my nurse practitioner, Roz Jacobo. I reviewed the nurse practitioner's note and agree with the documented findings and plan of care. Lung sounds are positive for diffuse crackles throughout the lung meredith. The findings and the impression was discussed with the patient. I attest to the documentation by the nurse practitioner. Time with Patient: Less than 30
--- NOTE | 2021-10-03 13:13 | XR ---
EXAMINATION TYPE: XR chest 1V portable DATE OF EXAM: 10/03/2021 COMPARISON: Chest x-ray 10/02/2021 HISTORY: Congestive heart failure, shortness of breath TECHNIQUE: Single frontal view of the chest is obtained. FINDINGS: There has been interval progression in airspace disease especially in the left lower lung. The patient is rotated. There is no evident pneumothorax. There is obscured left hemidiaphragm, righ t costophrenic angle. Heart is thought to be enlarged. Aorta is dense. IMPRESSION: Correlate for congestive heart failure, pneumonia, there may be basilar effusion, follow -up suggested
--- NOTE | 2021-10-03 13:21 | P.PN ---
Subjective Progress Note Date: 10/03/21 HISTORY OF PRESENT ILLNESS: This is a 76 year old female who presented to Hospital secondary to shortness of breath and chest pain. Patient was found to have abnormal troponins. She u nderwent cardiac cath yesterday with Dr. Gilmore revealing normal coronary arteries with elevated LVEDP of 25-30. Echocardiogram completed reveals ejection fraction 20-25%, mild aortic regurgitation, mild tricuspid regurgitation. The patient currently denies chest pain or pressure. She reports mild shortness of breath. According to the family member at the bedside, she has been on and off of the BiPAP. 10/02/2021 Patient examined this morning at the bedside. She denies chest pain or pressure . She reports shortness of breath that is improving. She remains on oral diuretics. BUN 28. Creatinine 0.55. Potassium 3.4. Patient remains on IV steroids per pulmonary 10/03/2021 Patient examined this morning at the bedside. Patient denies chest pain or pressure. She continues to report shortness of breath. Patient went into A. fib with RVR yesterday. She was started on IV heparin and amiodarone. She has since converted to sinus mechanism. PHYSICAL EXAM: VITAL SIGNS: Reviewed. GENERAL: Well-developed in no acute distress. NECK: Supple. No JVD or thyromegaly LUNGS: Respirations even and unlabored. Lungs diminished bilaterally with expiratory wheezing noted HEART: Regular rate and rhythm. S1 and S2 heard. Systolic murmur noted. EXTREMITIES: Normal range of motion. No clubbing or cyanosis. Peripheral pulses intact. Trace lower extremity edema ASSESSMENT: Non-STEMI, s/p cardiac cath revealing normal coronary arteries Acute asthma exacerbation Acute hypoxic respiratory failure Nonischemic cardiomyopathy, Takotsubo syndrome, ejection fraction 20-25% Acute systolic congestive heart failure New-onset paroxysmal atrial fibrillation with RVR Hypertension Diabetes History of obstructive sleep apnea PLAN: Pulmonary following Continue current cardiac medications His continue IV amiodarone. Begin oral amiodarone 400 mg twice a day Discontinue IV heparin. Begin Eliquis 5 mg twice a day. Per case management coverage for Eliquis is $4 a month. Resume metoprolol. 25 mg twice a day Continue telemetry monitoring Further recommendations pending patient course Nurse practitioner note has been reviewed by physician. Signing provider agrees with the documented findings, assessment, and plan of care. Objective - Vital Signs Vital signs: Vital Signs Temp 97.6 F 10/03/21 08:00 Pulse 96 10/03/21 13:11 Resp 26 H 10/03/21 12:56 BP 135/65 10/03/21 11:30 Pulse Ox 97 10/03/21 12:56 Intake & Output 10/02/21 10/03/21 10/03/21 18:59 06:59 18:59 Intake Total 514.238 120 Output Total 250 300 Balance 514.238 -250 -180 Weight 65.5 kg Intake: Intake, IV Titration 34.238 Amount Heparin Sod,Pork in 0.45% 34.238 NaCl 25,000 unit In 0.45 % NaCl 1 250ml.bag @ 12 UNITS/KG/HR 7.752 mls/hr IV .Q24H [facility] Rx#: [id number] Oral 480 120 Output: Urine 250 300 Other: Voiding Method External Catheter External Catheter External Catheter # Voids 2 # Bowel Movements 1 - Labs CBC & Chem 7: 10/03/21 09:50 10/03/21 09:50 Labs: Abnormal Lab Results - Last 24 Hours (Table) 10/02/21 10/02/21 10/02/21 Range/Units 05:29 15:38 16:42 WBC (3.8-10.6) k/uL APTT 88.4 H (22.0-30.0) sec Sodium (137-145) mmol/L BUN (7-17) mg/dL Glucose (74-99) mg/dL POC Glucose (mg/dL) 385 H (75-99) mg/dL Calcium (8.4-10.2) mg/dL Magnesium 2.6 H (1.6-2.3) mg/dL 10/02/21 10/03/21 10/03/21 Range/Units 19:36 00:51 06:19 WBC (3.8-10.6) k/uL APTT 54.8 H (22.0-30.0) sec Sodium (137-145) mmol/L BUN (7-17) mg/dL Glucose (74-99) mg/dL POC Glucose (mg/dL) 270 H 182 H (75-99) mg/dL Calcium (8.4-10.2) mg/dL Magnesium (1.6-2.3) mg/dL 10/03/21 10/03/21 10/03/21 Range/Units 09:50 09:50 09:50 WBC 15.6 H (3.8-10.6) k/uL APTT 54.7 H (22.0-30.0) sec Sodium 133 L (137-145) mmol/L BUN 38 H (7-17) mg/dL Glucose 425 H (74-99) mg/dL POC Glucose (mg/dL) (75-99) mg/dL Calcium 7.5 L (8.4-10.2) mg/dL Magnesium (1.6-2.3) mg/dL 10/03/21 10/03/21 Range/Units 11:33 13:05 WBC (3.8-10.6) k/uL APTT (22.0-30.0) sec Sodium (137-145) mmol/L BUN (7-17) mg/dL Glucose (74-99) mg/dL POC Glucose (mg/dL) 341 H 363 H (75-99) mg/dL Calcium (8.4-10.2) mg/dL Magnesium (1.6-2.3) mg/dL
[2021-10-03] MEDS: PIPERACILLIN-TAZOBACTAM 3.375 GM in SODIUM CHLORIDE 0.9% 100 ML IVPB SCH ×2 (13:45→23:08)
[2021-10-03] MEDS: APIXABAN 5 MG TAB PO SCH ×2 (13:45→20:36)
[2021-10-03] MEDS: AMIODARONE 200 MG TAB PO SCH ×2 (13:45→20:36)
[2021-10-03 14:53] LABS: Band Neutrophils % 6 %; Lymphocytes # (M) 0.47 k/uL (1.0-4.8); Monocytes # (M) 0.31 k/uL (0-1.0); Neutrophils % (M) 89 %; Nucleated Red Blood Cells 0 /100 WBC (0-0); Total Cells Counted 100
[2021-10-03 16:37] LABS: Glucose,Whole Blood 202 mg/dL (75-99)
[2021-10-03 20:21] LABS: Glucose,Whole Blood 216 mg/dL (75-99)
[2021-10-03] MEDS: MONTELUKAST 10 MG TAB PO SCH (20:38)
[2021-10-03] MEDS: LATANOPROST 0.005% OPHTH DROPS 2.5 ML BTL RIGHT EYE SCH (20:40)
[2021-10-04 06:02] LABS: Glucose,Whole Blood 270 mg/dL (75-99)
[2021-10-04] MEDS: INSULIN ASPART (NovoLOG) 100 UNIT/ML VIAL SQ SCH ×5 (06:19→21:45)
[2021-10-04] MEDS: BUDESONIDE 1 MG/2 ML NEBU INHALATION SCH ×2 (07:35→20:20)
[2021-10-04] MEDS: IPRATROPIUM-ALBUTEROL 3 ML NEB INHALATION SCH ×4 (07:35→20:20)
[2021-10-04] MEDS: FORMOTEROL FUMARATE 20 MCG/2 ML NEBU INHALATION SCH ×2 (07:35→20:20)
[2021-10-04] MEDS: methylPREDNISolone SOD SUCCI 40 MG/ML 1 ML VIAL IV SCH ×2 (08:38→16:03)
[2021-10-04] MEDS: AMIODARONE 200 MG TAB PO SCH ×2 (08:39→21:44)
[2021-10-04] MEDS: APIXABAN 5 MG TAB PO SCH ×2 (08:39→21:44)
[2021-10-04] MEDS: FUROSEMIDE 40 MG TAB PO SCH ×2 (08:39→16:03)
[2021-10-04] MEDS: CLOPIDOGREL 75 MG TAB PO SCH (08:39)
[2021-10-04] MEDS: ASPIRIN 81 MG PO SCH (08:39)
[2021-10-04] MEDS: SPIRONOLACTONE 25 MG TAB PO SCH (08:40)
[2021-10-04] MEDS: FAMOTIDINE 20 MG TAB PO SCH (08:40)
[2021-10-04] MEDS: METOPROLOL TARTRATE 25 MG TAB PO SCH ×2 (08:40→21:44)
[2021-10-04] MEDS: ATORVASTATIN 40 MG TAB PO SCH (08:40)
[2021-10-04] MEDS: PIPERACILLIN-TAZOBACTAM 3.375 GM in SODIUM CHLORIDE 0.9% 100 ML IVPB SCH ×2 (08:41→16:03)
[2021-10-04] MEDS: KETOROLAC 0.5% OPHTH DROPS 5 ML BTL RIGHT EYE SCH ×4 (08:41→21:48)
[2021-10-04 11:42] LABS: Glucose,Whole Blood 274 mg/dL (75-99)
--- NOTE | 2021-10-04 11:52 | FL ---
EXAMINATION TYPE: FL barium swallow w video DATE OF EXAM: 10/04/2021 CLINICAL HISTORY: 76-year-old female rule out aspiration, developmental delay, coughing with meals TECHNIQUE: Deglutition study is performed utilizing thin liquid barium, honey and nectar thick liqui d barium, barium thick applesauce, and barium coated cracker. COMPARISON: None. Total fluoroscopy time: 2 minutes 13 seconds. Total images: None. Real-time fluoroscopy support was provided to speech pathology. FINDINGS: The oral and pharyngeal phases show satisfactory initiation and propagation with all modalities teste d. There is deep penetration with coating of the vocal folds with thin liquids. No penetration or as piration seen with the other consistencies. Mild residuals are noted. IMPRESSION: Deep penetration with coating of focal folds within liquids. Mild residuals. No aspiration seen. Please refer to speech therapist notes for further details if necessary.
[2021-10-04 13:01] VITALS: BMI 29.8
--- NOTE | 2021-10-04 13:15 | P.PN ---
Subjective Progress Note Date: 10/04/21 HISTORY OF PRESENT ILLNESS: This is a 76 year old female who presented to Hospital secondary to shortness of breath and chest pain. Patient was found to have abnormal troponins. She u nderwent cardiac cath yesterday with Dr. Gilmore revealing normal coronary arteries with elevated LVEDP of 25-30. Echocardiogram completed reveals ejection fraction 20-25%, mild aortic regurgitation, mild tricuspid regurgitation. The patient currently denies chest pain or pressure. She reports mild shortness of breath. According to the family member at the bedside, she has been on and off of the BiPAP. 10/02/2021 Patient examined this morning at the bedside. She denies chest pain or pressure . She reports shortness of breath that is improving. She remains on oral diuretics. BUN 28. Creatinine 0.55. Potassium 3.4. Patient remains on IV steroids per pulmonary 10/03/2021 Patient examined this morning at the bedside. Patient denies chest pain or pressure. She continues to report shortness of breath. Patient went into A. fib with RVR yesterday. She was started on IV heparin and amiodarone. She has since converted to sinus mechanism. 10/04/2021 Patient examined this morning the bedside. She denies chest pain or pressure. She currently denies shortness of breath. He is maintaining sinus mechanism on telemetry. PHYSICAL EXAM: VITAL SIGNS: Reviewed. GENERAL: Well-developed in no acute distress. NECK: Supple. No JVD or thyromegaly LUNGS: Respirations even and unlabored. Lungs diminished bilaterally with expiratory wheezing noted HEART: Regular rate and rhythm. S1 and S2 heard. Systolic murmur noted. EXTREMITIES: Normal range of motion. No clubbing or cyanosis. Peripheral pulses intact. Trace lower extremity edema ASSESSMENT: Non-STEMI, s/p cardiac cath revealing normal coronary arteries Acute asthma exacerbation Bilateral infiltrates, suspected aspiration pneumonia Acute hypoxic respiratory failure Nonischemic cardiomyopathy, Takotsubo syndrome, ejection fraction 20-25% Acute systolic congestive heart failure New-onset paroxysmal atrial fibrillation with RVR Hypertension Diabetes History of obstructive sleep apnea PLAN: Pulmonary following Continue current cardiac medications Discontinue Plavix. Continue aspirin and Eliquis. Continue telemetry monitoring Patient to undergo swallow evaluation today Further recommendations pending patient course Nurse practitioner note has been reviewed by physician. Signing provider agrees with the documented findings, assessment, and plan of care. Objective - Vital Signs Vital signs: Vital Signs Temp 97.5 F L 10/04/21 08:00 Pulse 76 10/04/21 11:43 Resp 20 10/04/21 11:43 BP 118/62 10/04/21 11:43 Pulse Ox 95 10/04/21 11:43 Intake & Output 10/03/21 10/04/21 10/04/21 18:59 06:59 18:59 Intake Total 240 100 Output Total 300 Balance -60 100 Weight 64.8 kg 64.8 kg Intake: Intake, IV Titration 100 Amount Piperacillin-Tazobactam 3 100 .375 gm In Sodium Chloride 0.9% 100 ml @ 25 mls/hr IVPB Q8HR [facility] Rx# :[id number] Oral 240 Output: Urine 300 Other: Voiding Method External Catheter External Catheter External Catheter # Voids 0 1 - Labs CBC & Chem 7: 10/03/21 09:50 10/03/21 09:50 Labs: Abnormal Lab Results - Last 24 Hours (Table) 10/03/21 10/03/21 10/03/21 Range/Units 09:50 09:50 16:36 Neutrophils # (Manual) 14.80 H (1.3-7.7) k/uL Lymphocytes # (Manual) 0.47 L (1.0-4.8) k/uL POC Glucose (mg/dL) 202 H (75-99) mg/dL Procalcitonin 0.31 H (0.02-0.09) ng/mL 10/03/21 10/04/21 10/04/21 Range/Units 20:19 06:00 11:40 Neutrophils # (Manual) (1.3-7.7) k/uL Lymphocytes # (Manual) (1.0-4.8) k/uL POC Glucose (mg/dL) 216 H 270 H 274 H (75-99) mg/dL Procalcitonin (0.02-0.09) ng/mL
--- NOTE | 2021-10-04 14:14 | P.PN ---
Subjective Progress Note Date: 10/04/21 Principal diagnosis: Dyspnea On 10/01/2021 patient seen in follow-up on selective care unit, she sits up in the chair, she is currently off BiPAP, and on 4 L of oxygen, pulse ox is 97%, she did wear BiPAP last night with pressures of 12/6 and FiO2 of 60%. Overall she is breathing better today, still has diffuse rhonchi and rales throughout the lung meredith, she is currently on oral Lasix, she is in -970 mL net fluid balance over the last 24 hours, she has been transitioned to oral Lasix 40 mg by mouth twice daily, she remains on IV Solu-Medrol 40 mg every 8 hours, and neb ulized bronchodilators. She denies any chest pain. Her echocardiogram showed borderline concentric LVH, and severely impaired LV function with EF of 20-25%. Today's labs have been reviewed, electrolytes are within normal limits, BUN is 32 creatinine 0.69. On 10/02/2021 patient seen in follow-up. Patient is breathing more comfortably, she is currently on 2 L of oxygen with a pulse ox of 94-96%, she has been afebrile, denied any chest pain, no cough, no phlegm production, minimal wheezing. Today's chest x-ray shows mild bibasilar infiltrates, most likely related to atypical pulmonary edema, moderate volume overload. And small pleural effusion is present, overall findings are improved compared most recent chest x-ray from 09/30/2021. Patient is currently on oral Lasix 40 mg twice daily. She is in -940 mL net fluid balance. No lower extremity edema. Today's labs have been reviewed, sodium is 139, potassium 3.4, chloride is 106, BUN is 28, creatinine is 0.5. Patient is on nebulized bronchodilators, and IV Solu- Medrol 40 mg every 8 hours. Echocardiogram has been completed showing severely impaired left ventricle systolic function with EF of 20-25%, mild aortic valve sclerosis and regurgitation, mild TR. Patient is on Lopressor 25 mg twice daily, she is on oral Lasix, Aldactone, Lipitor 40 mg daily, aspirin and Plavix, cardiology is following. On 10/03/2021 patient seen in follow-up. Patient has been noted to be intermittently more dyspneic, and wheezing, and no she is suspected to be intermittently aspirating on food. Swallow evaluation will be obtained, lung sounds are positive for diffuse wheezes, patient is still dyspneic, she is currently on 4 L of oxygen pulse ox is 97%, she is afebrile, today's labs have been reviewed, her white blood cell count has increased to 15.6, hemoglobin is 13.7, sodium is 133, the rest of electrolytes are within normal limits, and her BUN was 38, and creatinine 0.62. Patient did have a couple episodes of increased shortness of breath, wheezing, and pulmonary congestion, fluid overload with suspected, she did receive the next dose of IV Lasix. She is on maintenance dose oral Lasix right now, 40 mg twice a day. She is in negative fluid balance. She has converted to sinus mechanism, rate is controlled, she remains on amiodarone infusion at 0.5 mg per hour, and heparin infusion, cardiology is following, and is planning on transitioning the patient to oral amiodarone and possibly oral anticoagulation. No hemoptysis, patient is not bringing up any phlegm, no chest pain. On today's evaluation on 10/04/2021 patient seen in follow-up on selective care unit. She is awake and alert, in no acute distress, sounds less congested today, however still wheezy, in has diffuse rhonchi and rales. Estrace chest x- ray showed bilateral pneumonia, and aspiration pneumonia was strongly suspected. Patient had a swallow evaluation, she had a modified barium swallow, which showed deep penetration with coating of focal folds within liquids, mild residuals, no aspiration. Patient was started on Zosyn. She remains on IV s teroids and breathing treatments. Patient also remains on oral Lasix 40 mg twice daily. Overall she states she is feeling better, and breathing easier today. Remains on 4 L of oxygen. Pulse ox of 98%. Objective - Vital Signs Vital signs: Vital Signs Temp 97.5 F L 10/04/21 08:00 Pulse 76 10/04/21 11:43 Resp 20 10/04/21 11:43 BP 118/62 10/04/21 11:43 Pulse Ox 95 10/04/21 11:43 Intake & Output 10/03/21 10/04/21 10/04/21 18:59 06:59 18:59 Intake Total 240 100 Output Total 300 Balance -60 100 Weight 64.8 kg 64.8 kg Intake: Intake, IV Titration 100 Amount Piperacillin-Tazobactam 3 100 .375 gm In Sodium Chloride 0.9% 100 ml @ 25 mls/hr IVPB Q8HR [facility] Rx# :[id number] Oral 240 Output: Urine 300 Other: Voiding Method External Catheter External Catheter External Catheter # Voids 0 1 - Exam GENERAL EXAM: Alert, very pleasant, 76-year-old white female, on 4 L of oxygen and the pulse ox of 97% comfortable in no apparent distress. HEAD: Normocephalic/atraumatic. EYES: Normal reaction of pupils, equal size. Conjunctiva pink, sclera white. NOSE: Clear with pink turbinates. THROAT: No erythema or exudates. NECK: No masses, no JVD, no thyroid enlargement, no adenopathy. CHEST: No chest wall deformity. Symmetrical expansion. LUNGS: Equal air entry with diffuse wheezes and rhonchi CVS: Regular rate and rhythm, normal S1 and S2, no gallops, no murmurs, no rubs ABDOMEN: Soft, nontender. No hepatosplenomegaly, normal bowel sounds, no guarding or rigidity. EXTREMITIES: No clubbing, no edema, no cyanosis, 2+ pulses and upper and lower extremities. MUSCULOSKELETAL: Muscle strength and tone normal. SPINE: No scoliosis or deformity SKIN: No rashes CENTRAL NERVOUS SYSTEM: Alert and oriented -3. No focal deficits, tone is normal in all 4 extremities. PSYCHIATRIC: Alert and oriented -3. Appropriate affect. Intact judgment and insight. - Labs CBC & Chem 7: 10/03/21 09:50 10/03/21 09:50 Labs: Abnormal Lab Results - Last 24 Hours (Table) 10/03/21 10/03/21 10/03/21 Range/Units 09:50 09:50 16:36 Neutrophils # (Manual) 14.80 H (1.3-7.7) k/uL Lymphocytes # (Manual) 0.47 L (1.0-4.8) k/uL POC Glucose (mg/dL) 202 H (75-99) mg/dL Procalcitonin 0.31 H (0.02-0.09) ng/mL 10/03/21 10/04/21 10/04/21 Range/Units 20:19 06:00 11:40 Neutrophils # (Manual) (1.3-7.7) k/uL Lymphocytes # (Manual) (1.0-4.8) k/uL POC Glucose (mg/dL) 216 H 270 H 274 H (75-99) mg/dL Procalcitonin (0.02-0.09) ng/mL Assessment and Plan Plan: Assessment: #1. Acute hypoxic respiratory failure, multifactorial, secondary to acute exacerbation of CHF with systolic dysfunction, non-ST elevated myocardial infarction and acute exacerbation of mild intermittent bronchial asthma. On today's chest x-ray on 10/03/2021, patient has new bilateral infiltrates, with a suspicion of aspiration related pneumonia. patient had modified barium swallow which showed deep penetration but no aspiration. Remains on regular diet with thin liquids #2. Hyponatremia, hypervolemic, improved #3. 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 Hypertension #5. Diabetes type 2 #6. History of obstructive sleep apnea #7. Acute A. fib with RVR, on amiodarone and heparin infusion, has converted back to sinus rhythm Plan: continue current medical treatment continue Zosyn Titrate FiO2 to keep O2 sats at or above 90-92% Continue IV steroids and bronchodilators Speech therapy recs reviewed Provide supervision with meals, maintain aspiration precautions follow up CXR in 24 hours, folllow up labs Continue to follow patient's clinical course I performed a history & physical examination of the patient and discussed their management with my nurse practitioner, Roz Jacobo. I reviewed the nurse practitioner's note and agree with the documented findings and plan of care. Lung sounds are positive for diffuse crackles throughout the lung meredith. The findings and the impression was discussed with the patient. I attest to the documentation by the nurse practitioner. Time with Patient: Less than 30
--- NOTE | 2021-10-04 16:25 | P.PN ---
Subjective Progress Note Date: 10/04/21 This is a pleasant 76-year-old female admitted with acute hypoxic respiratory failure secondary to acute CHF exacerbation, acute asthma exacerbation as well as acute NSTEMI/Takotsubo syndrome, ejection fraction of 20-25% and multiple other medical issues. Diuresing well on oral Lasix with 24-hour I&O reflecting a negative fluid balance. Maintained O2 sats in the mid 90s on 2 L nasal cannula. Maintained on nebulized bronchodilators, IV steroids, bronchospastic- improving. Afebrile. Labs pending. Chest x-ray reporting prominent pulmonary vasculature, mild basilar infiltrates, atypical pulmonary edema with moderate volume overload, small left pleural effusion. Denies chest pain, palpitations. 10/03/21 yesterday afternoon developed atrial fibrillation with RVR, beta kelly dose increased, heparin drip initiated. Wheezy this morning with congested cough, telemetry currently controlled A. fib but reports that the night heart rate up into the 130s to 160s. Required BiPAP earlier this morning, O2 sats decreased to 91% on 4 L nasal cannula. Afebrile, labs pending. Denies chest pain, palpitations. 10/04/2021 chest x-ray yesterday reported bilateral pneumonia, reflective of possible aspiration pneumonia and Zosyn was initiated. Completed MBS reporting deep penetration, without aspiration. Speech therapy recommending patient remain on regular diet with thin liquids, with Direct Supervision with meals ,due to patient's impulsivity, sitting upright 90, no straw, liquids from cup, small bites and sips. Continues on nebulized bronchodilators, IV steroids, oral diuretics. Maintaining O2 sats in the high 90s on 4 L nasal cannula Objective - Vital Signs Vital signs: Vital Signs Temp 97.5 F L 10/04/21 08:00 Pulse 76 10/04/21 11:43 Resp 20 10/04/21 11:43 BP 118/62 10/04/21 11:43 Pulse Ox 95 10/04/21 11:43 Intake & Output 10/03/21 10/04/21 10/04/21 18:59 06:59 18:59 Intake Total 240 100 Output Total 300 Balance -60 100 Weight 64.8 kg 64.8 kg Intake: Intake, IV Titration 100 Amount Piperacillin-Tazobactam 3 100 .375 gm In Sodium Chloride 0.9% 100 ml @ 25 mls/hr IVPB Q8HR [facility] Rx# :[id number] Oral 240 Output: Urine 300 Other: Voiding Method External Catheter External Catheter External Catheter # Voids 0 1 - Exam PHYSICAL EXAMINATION: GENERAL: Patient is alert and oriented x3,NAD HEENT: Pupils are round and equally reacting to light. EOMI. No scleral icterus. No conjunctival pallor. Oral mucosa moist. CARDIOVASCULAR: S1 and S2. Irregular. No murmurs, rubs, or gallops. PULMONARY: Equal air entry into bilateral lung meredith , scattered rhonchi with diffuse expiratory wheezing ABDOMEN: Soft, nontender, nondistended, normoactive bowel sounds. No palpable organomegaly. EXTREMITIES: No cyanosis, clubbing, or pedal edema. NEUROLOGICAL: Gross neurological examination did not reveal any focal deficits. SKIN: Warm and dry, No rashes. - Labs CBC & Chem 7: 10/03/21 09:50 10/03/21 09:50 Labs: Abnormal Lab Results - Last 24 Hours (Table) 10/03/21 10/03/21 10/03/21 Range/Units 09:50 09:50 16:36 Neutrophils # (Manual) 14.80 H (1.3-7.7) k/uL Lymphocytes # (Manual) 0.47 L (1.0-4.8) k/uL POC Glucose (mg/dL) 202 H (75-99) mg/dL Procalcitonin 0.31 H (0.02-0.09) ng/mL 10/03/21 10/04/21 10/04/21 Range/Units 20:19 06:00 11:40 Neutrophils # (Manual) (1.3-7.7) k/uL Lymphocytes # (Manual) (1.0-4.8) k/uL POC Glucose (mg/dL) 216 H 270 H 274 H (75-99) mg/dL Procalcitonin (0.02-0.09) ng/mL Assessment and Plan Assessment: Acute non-STEMI, nonischemic cardiomyopathy,Takotsubo syndrome, EF 20-25% Acute CHF exacerbation with systolic dysfunction Acute asthma exacerbation Acute bilateral pneumonia, suspicious for aspiration pneumonia. MBS reported no aspiration. Penetration as per MBS, direct supervision with with meals as mentioned above in note Acute hypoxic respiratory failure secondary to all the above A. fib with RVR, converted to sinus rhythm Diabetes mellitus II, uncontrolled, hyperglycemic Hypertension Hyperlipidemia Hypovolemic hyponatremia, resolved Obesity, BMI 29.8 Gastroesophageal reflux disease Obstructive Sleep apnea, with CPAP, BiPAP at home Anxiety Plan: Continue on current medication regime ,monitoring and symptomatic treatment. Aspiration precautions, direct supervision with meals as mentioned above.continue Aggressive pulmonary toileting with nebulized bronchodilators, IV steroids. Feeling better today. Discharge planning in progress possibly for tomorrow or this weekend, pending final DC recommendations and clearance from pulmonary. The impression and plan of care has been dictated as directed. : I performed a history and examination of this patient, discussed the same with the dictator. I agree with the dictator's note ,documented as a scribe. Any additional findings or plans will be noted.
[2021-10-04 16:31] LABS: Glucose,Whole Blood 421 mg/dL (75-99)
[2021-10-04] MEDS ORDERED: INSULIN ASPART (NovoLOG) 100 UNIT/ML VIAL SQ ONE (16:46)
[2021-10-04] MEDS: metFORMIN 500 MG TAB PO SCH (17:33)
[2021-10-04] MEDS: INSULIN DETEMIR (LEVEMIR) 100 UNIT/ML SYR SQ SCH (17:33)
[2021-10-04 20:45] LABS: Glucose,Whole Blood 334 mg/dL (75-99)
[2021-10-04] MEDS ORDERED: MONTELUKAST 10 MG TAB PO SCH (21:00)
[2021-10-04] MEDS: MONTELUKAST 10 MG TAB PO SCH (21:44)
[2021-10-04] MEDS: SUCRALFATE 1 GM TAB PO SCH (21:44)
[2021-10-04] MEDS: LATANOPROST 0.005% OPHTH DROPS 2.5 ML BTL RIGHT EYE SCH (21:47)
[2021-10-05] MEDS: methylPREDNISolone SOD SUCCI 40 MG/ML 1 ML VIAL IV SCH ×4 (01:33→23:16)
[2021-10-05] MEDS: PIPERACILLIN-TAZOBACTAM 3.375 GM in SODIUM CHLORIDE 0.9% 100 ML IVPB SCH ×4 (01:33→23:16)
[2021-10-05] MEDS: PANTOPRAZOLE 40 MG TABLET PO SCH (06:51)
[2021-10-05 07:05] LABS: Glucose,Whole Blood 210 mg/dL (75-99)
[2021-10-05] MEDS: INSULIN ASPART (NovoLOG) 100 UNIT/ML VIAL SQ SCH ×7 (07:06→21:36)
[2021-10-05] MEDS: INSULIN DETEMIR (LEVEMIR) 100 UNIT/ML SYR SQ SCH (07:06)
[2021-10-05] MEDS: metFORMIN 500 MG TAB PO SCH ×3 (07:06→17:18)
--- NOTE | 2021-10-05 07:32 | XR ---
EXAMINATION TYPE: XR chest 1V portable DATE OF EXAM: 10/05/2021 COMPARISON: 10/03/2021 INDICATION: Pneumonia TECHNIQUE: Single frontal view of the chest is obtained. FINDINGS: The heart size is prominent. The pulmonary vasculature is normal. There is a left perihilar infiltrate. This has improved. Left lower lobe infiltrate has improved. IMPRESSION: 1. Improving left perihilar and left lower lobe infiltrates. 2. Cardiomegaly
[2021-10-05] MEDS: SUCRALFATE 1 GM TAB PO SCH ×3 (08:19→21:36)
[2021-10-05] MEDS: SPIRONOLACTONE 25 MG TAB PO SCH (08:19)
[2021-10-05] MEDS: CHOLECALCIFEROL 25 MCG (1000 IU) TABLET PO SCH (08:19)
[2021-10-05] MEDS: AMIODARONE 200 MG TAB PO SCH ×2 (08:20→21:35)
[2021-10-05] MEDS: ATORVASTATIN 40 MG TAB PO SCH (08:20)
[2021-10-05] MEDS: APIXABAN 5 MG TAB PO SCH ×2 (08:20→21:35)
[2021-10-05] MEDS: METOPROLOL TARTRATE 25 MG TAB PO SCH ×2 (08:20→21:36)
[2021-10-05] MEDS: KETOROLAC 0.5% OPHTH DROPS 5 ML BTL RIGHT EYE SCH ×4 (08:20→21:38)
[2021-10-05] MEDS: FUROSEMIDE 40 MG TAB PO SCH ×2 (08:20→17:18)
[2021-10-05] MEDS: ASPIRIN 81 MG PO SCH (08:20)
[2021-10-05] MEDS: FORMOTEROL FUMARATE 20 MCG/2 ML NEBU INHALATION SCH ×2 (09:34→19:07)
[2021-10-05] MEDS: IPRATROPIUM-ALBUTEROL 3 ML NEB INHALATION SCH ×4 (09:34→19:07)
[2021-10-05] MEDS: BUDESONIDE 1 MG/2 ML NEBU INHALATION SCH ×2 (09:34→19:07)
[2021-10-05 10:34] LABS: ALT 64 U/L (4-34); AST 42 U/L (14-36); African American GFR (CKD) >90 (>60 ml/min/1.73 sqM); Albumin 2.7 g/dL (3.5-5.0); Alkaline Phosphatase 69 U/L (38-126); Anion Gap 7 mmol/L; Blood Urea Nitrogen 30 mg/dL (7-17); Calcium 8.4 mg/dL (8.4-10.2); Carbon Dioxide 30 mmol/L (22-30); Chloride 105 mmol/L (98-107); Glucose 243 mg/dL (74-99); Non-African American GFR(CKD) 85 (>60 ml/min/1.73 sqM); Potassium 3.1 mmol/L (3.5-5.1); Sodium 142 mmol/L (137-145); Total Bilirubin 0.7 mg/dL (0.2-1.3); Total Protein 5.2 g/dL (6.3-8.2)
[2021-10-05 11:02] LABS: Basophils % (A) 0 %; Eosinophils % (A) 0 %; HCT 33.4 % (34.0-46.0); HGB 11.7 gm/dL (11.4-16.0); Lymphocytes # (A) 0.4 k/uL (1.0-4.8); Lymphocytes % (A) 2 %; MCH 31.7 pg (25.0-35.0); MCHC 34.9 g/dL (31.0-37.0); MCV 90.6 fL (80.0-100.0); Mean Platelet Volume 9.3; Monocytes # (A) 0.6 k/uL (0-1.0); Monocytes % (A) 3 %; Neutrophils # (A) 16.3 k/uL (1.3-7.7); Neutrophils % (A) 93 %; Platelet Count 236 k/uL (150-450); RBC 3.69 m/uL (3.80-5.40); RDW 13.5 % (11.5-15.5); WBC 17.5 k/uL (3.8-10.6)
[2021-10-05 11:41] LABS: Glucose,Whole Blood 154 mg/dL (75-99)
--- NOTE | 2021-10-05 12:11 | P.PN ---
Subjective Progress Note Date: 10/05/21 Principal diagnosis: Dyspnea On 10/01/2021 patient seen in follow-up on selective care unit, she sits up in the chair, she is currently off BiPAP, and on 4 L of oxygen, pulse ox is 97%, she did wear BiPAP last night with pressures of 12/6 and FiO2 of 60%. Overall she is breathing better today, still has diffuse rhonchi and rales throughout the lung meredith, she is currently on oral Lasix, she is in -970 mL net fluid balance over the last 24 hours, she has been transitioned to oral Lasix 40 mg by mouth twice daily, she remains on IV Solu-Medrol 40 mg every 8 hours, and neb ulized bronchodilators. She denies any chest pain. Her echocardiogram showed borderline concentric LVH, and severely impaired LV function with EF of 20-25%. Today's labs have been reviewed, electrolytes are within normal limits, BUN is 32 creatinine 0.69. On 10/02/2021 patient seen in follow-up. Patient is breathing more comfortably, she is currently on 2 L of oxygen with a pulse ox of 94-96%, she has been afebrile, denied any chest pain, no cough, no phlegm production, minimal wheezing. Today's chest x-ray shows mild bibasilar infiltrates, most likely related to atypical pulmonary edema, moderate volume overload. And small pleural effusion is present, overall findings are improved compared most recent chest x-ray from 09/30/2021. Patient is currently on oral Lasix 40 mg twice daily. She is in -940 mL net fluid balance. No lower extremity edema. Today's labs have been reviewed, sodium is 139, potassium 3.4, chloride is 106, BUN is 28, creatinine is 0.5. Patient is on nebulized bronchodilators, and IV Solu- Medrol 40 mg every 8 hours. Echocardiogram has been completed showing severely impaired left ventricle systolic function with EF of 20-25%, mild aortic valve sclerosis and regurgitation, mild TR. Patient is on Lopressor 25 mg twice daily, she is on oral Lasix, Aldactone, Lipitor 40 mg daily, aspirin and Plavix, cardiology is following. On 10/03/2021 patient seen in follow-up. Patient has been noted to be intermittently more dyspneic, and wheezing, and no she is suspected to be intermittently aspirating on food. Swallow evaluation will be obtained, lung sounds are positive for diffuse wheezes, patient is still dyspneic, she is currently on 4 L of oxygen pulse ox is 97%, she is afebrile, today's labs have been reviewed, her white blood cell count has increased to 15.6, hemoglobin is 13.7, sodium is 133, the rest of electrolytes are within normal limits, and her BUN was 38, and creatinine 0.62. Patient did have a couple episodes of increased shortness of breath, wheezing, and pulmonary congestion, fluid overload with suspected, she did receive the next dose of IV Lasix. She is on maintenance dose oral Lasix right now, 40 mg twice a day. She is in negative fluid balance. She has converted to sinus mechanism, rate is controlled, she remains on amiodarone infusion at 0.5 mg per hour, and heparin infusion, cardiology is following, and is planning on transitioning the patient to oral amiodarone and possibly oral anticoagulation. No hemoptysis, patient is not bringing up any phlegm, no chest pain. On today's evaluation on 10/04/2021 patient seen in follow-up on selective care unit. She is awake and alert, in no acute distress, sounds less congested today, however still wheezy, in has diffuse rhonchi and rales. Estrace chest x- ray showed bilateral pneumonia, and aspiration pneumonia was strongly suspected. Patient had a swallow evaluation, she had a modified barium swallow, which showed deep penetration with coating of focal folds within liquids, mild residuals, no aspiration. Patient was started on Zosyn. She remains on IV s teroids and breathing treatments. Patient also remains on oral Lasix 40 mg twice daily. Overall she states she is feeling better, and breathing easier today. Remains on 4 L of oxygen. Pulse ox of 98%. On today's evaluation on 10/05/2021 patient seen in follow-up on selective care unit, she states her breathing is improving, still coughing, but is now starting to bring up some greenish colored phlegm, remains on Zosyn, nebulized bronchodilators and steroids, today's chest x-ray showing improvement in appearance of left perihilar and left lower lobe infiltrates. Denies any chest discomfort, no hemoptysis, vitals been stable overnight Objective - Vital Signs Vital signs: Vital Signs Temp 97.9 F 10/05/21 08:00 Pulse 76 10/05/21 09:59 Resp 18 10/05/21 08:00 BP 116/66 10/05/21 08:00 Pulse Ox 95 10/05/21 08:00 Intake & Output 10/04/21 10/05/21 10/05/21 18:59 06:59 18:59 Intake Total 380 10 Output Total 800 Balance 380 -790 Weight 64.8 kg 62.2 kg Intake: IV 200 10 Invasive Line 6 10 Piperacillin-Tazobactam 3 200 .375 gm In Sodium Chloride 0.9% 100 ml @ 25 mls/hr IVPB Q8HR [facility] Rx# :[id number] Oral 180 Output: Urine 800 Other: Voiding Method External Catheter External Catheter External Catheter # Voids 1 - Exam GENERAL EXAM: Alert, very pleasant, 76-year-old white female, on 4 L of oxygen and the pulse ox of 97% comfortable in no apparent distress. HEAD: Normocephalic/atraumatic. EYES: Normal reaction of pupils, equal size. Conjunctiva pink, sclera white. NOSE: Clear with pink turbinates. THROAT: No erythema or exudates. NECK: No masses, no JVD, no thyroid enlargement, no adenopathy. CHEST: No chest wall deformity. Symmetrical expansion. LUNGS: Equal air entry with diffuse wheezes and rhonchi CVS: Regular rate and rhythm, normal S1 and S2, no gallops, no murmurs, no rubs ABDOMEN: Soft, nontender. No hepatosplenomegaly, normal bowel sounds, no guarding or rigidity. EXTREMITIES: No clubbing, no edema, no cyanosis, 2+ pulses and upper and lower extremities. MUSCULOSKELETAL: Muscle strength and tone normal. SPINE: No scoliosis or deformity SKIN: No rashes CENTRAL NERVOUS SYSTEM: Alert and oriented -3. No focal deficits, tone is normal in all 4 extremities. PSYCHIATRIC: Alert and oriented -3. Appropriate affect. Intact judgment and insight. - Labs CBC & Chem 7: 10/05/21 09:34 10/05/21 09:34 Labs: Abnormal Lab Results - Last 24 Hours (Table) 10/04/21 10/04/21 10/05/21 Range/Units 16:29 20:30 07:03 WBC (3.8-10.6) k/uL RBC (3.80-5.40) m/uL Hct (34.0-46.0) % Neutrophils # (1.3-7.7) k/uL Lymphocytes # (1.0-4.8) k/uL Potassium (3.5-5.1) mmol/L BUN (7-17) mg/dL Glucose (74-99) mg/dL POC Glucose (mg/dL) 421 H 334 H 210 H (75-99) mg/dL AST (14-36) U/L ALT (4-34) U/L Total Protein (6.3-8.2) g/dL Albumin (3.5-5.0) g/dL 10/05/21 10/05/21 10/05/21 Range/Units 09:34 09:34 11:33 WBC 17.5 H (3.8-10.6) k/uL RBC 3.69 L (3.80-5.40) m/uL Hct 33.4 L (34.0-46.0) % Neutrophils # 16.3 H (1.3-7.7) k/uL Lymphocytes # 0.4 L (1.0-4.8) k/uL Potassium 3.1 L (3.5-5.1) mmol/L BUN 30 H (7-17) mg/dL Glucose 243 H (74-99) mg/dL POC Glucose (mg/dL) 154 H (75-99) mg/dL AST 42 H (14-36) U/L ALT 64 H (4-34) U/L Total Protein 5.2 L (6.3-8.2) g/dL Albumin 2.7 L (3.5-5.0) g/dL Assessment and Plan Plan: Assessment: #1. Acute hypoxic respiratory failure, multifactorial, secondary to acute exacerbation of CHF with systolic dysfunction, non-ST elevated myocardial infarction and acute exacerbation of mild intermittent bronchial asthma. On today's chest x-ray on 10/03/2021, patient has new bilateral infiltrates, with a suspicion of aspiration related pneumonia. patient had modified barium swallow which showed deep penetration but no aspiration. Remains on regular diet with thin liquids #2. Hyponatremia, hypervolemic, improved #3. 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 Hypertension #5. Diabetes type 2 #6. History of obstructive sleep apnea #7. Acute A. fib with RVR, on amiodarone and heparin infusion, has converted back to sinus rhythm Plan: Today's chest x-ray showing improvement in the appearance of left perihilar and left lower lobe infiltrate Clinically patient is also improving Still coughing, now able to bring up some greenish colored phlegm Send a sputum for culture continue current medical treatment continue Zosyn, IV steroids and nebulized bronchodilators Provide supervision with meals, maintain aspiration precautions Continue to follow patient's clinical course I performed a history & physical examination of the patient and discussed their management with my nurse practitioner, Roz Jacobo. I reviewed the nurse practitioner's note and agree with the documented findings and plan of care. Lung sounds are positive for diffuse crackles throughout the lung meredith. The findings and the impression was discussed with the patient. I attest to the documentation by the nurse practitioner. Time with Patient: Less than 30
--- NOTE | 2021-10-05 12:32 | P.PN ---
Subjective Progress Note Date: 10/05/21 HISTORY OF PRESENT ILLNESS: This is a 76 year old female who presented to Hospital secondary to shortness of breath and chest pain. Patient was found to have abnormal troponins. She u nderwent cardiac cath yesterday with Dr. Gilmore revealing normal coronary arteries with elevated LVEDP of 25-30. Echocardiogram completed reveals ejection fraction 20-25%, mild aortic regurgitation, mild tricuspid regurgitation. The patient currently denies chest pain or pressure. She reports mild shortness of breath. According to the family member at the bedside, she has been on and off of the BiPAP. 10/02/2021 Patient examined this morning at the bedside. She denies chest pain or pressure . She reports shortness of breath that is improving. She remains on oral diuretics. BUN 28. Creatinine 0.55. Potassium 3.4. Patient remains on IV steroids per pulmonary 10/03/2021 Patient examined this morning at the bedside. Patient denies chest pain or pressure. She continues to report shortness of breath. Patient went into A. fib with RVR yesterday. She was started on IV heparin and amiodarone. She has since converted to sinus mechanism. 10/04/2021 Patient examined this morning the bedside. She denies chest pain or pressure. She currently denies shortness of breath. He is maintaining sinus mechanism on telemetry. 10/05/2021 Patient examined this morning at the bedside. Patient appears improved compared to yesterday. She denies chest pain or pressure. She denies shortness of breath. She does report a productive cough. Telemetry reveals sinus mechanism. PHYSICAL EXAM: VITAL SIGNS: Reviewed. GENERAL: Well-developed in no acute distress. NECK: Supple. No JVD or thyromegaly LUNGS: Respirations even and unlabored. Lungs diminished bilaterally right-sided rhonchi noted. Improved from yesterday HEART: Regular rate and rhythm. S1 and S2 heard. Systolic murmur noted. EXTREMITIES: Normal range of motion. No clubbing or cyanosis. Peripheral pulses intact. Trace lower extremity edema ASSESSMENT: Non-STEMI, s/p cardiac cath revealing normal coronary arteries Acute asthma exacerbation Bilateral infiltrates, suspected aspiration pneumonia, status post modified barium swallow which did not reveal evidence of aspiration Acute hypoxic respiratory failure Nonischemic cardiomyopathy, Takotsubo syndrome, ejection fraction 20-25% Acute systolic congestive heart failure New-onset paroxysmal atrial fibrillation with RVR Hypertension Diabetes History of obstructive sleep apnea PLAN: Pulmonary following Continue current cardiac medications Continue aspirin and Eliquis. Continue telemetry monitoring We will sign off. Please reconsult if needed. Nurse practitioner note has been reviewed by physician. Signing provider agrees with the documented findings, assessment, and plan of care. Objective - Vital Signs Vital signs: Vital Signs Temp 97.9 F 10/05/21 08:00 Pulse 76 10/05/21 09:59 Resp 18 10/05/21 08:00 BP 116/66 10/05/21 08:00 Pulse Ox 95 10/05/21 08:00 Intake & Output 10/04/21 10/05/21 10/05/21 18:59 06:59 18:59 Intake Total 380 10 Output Total 800 Balance 380 -790 Weight 64.8 kg 62.2 kg Intake: IV 200 10 Invasive Line 6 10 Piperacillin-Tazobactam 3 200 .375 gm In Sodium Chloride 0.9% 100 ml @ 25 mls/hr IVPB Q8HR [facility] Rx# :[id number] Oral 180 Output: Urine 800 Other: Voiding Method External Catheter External Catheter External Catheter # Voids 1 - Labs CBC & Chem 7: 10/05/21 09:34 10/05/21 09:34 Labs: Abnormal Lab Results - Last 24 Hours (Table) 10/04/21 10/04/21 10/05/21 Range/Units 16:29 20:30 07:03 WBC (3.8-10.6) k/uL RBC (3.80-5.40) m/uL Hct (34.0-46.0) % Neutrophils # (1.3-7.7) k/uL Lymphocytes # (1.0-4.8) k/uL Potassium (3.5-5.1) mmol/L BUN (7-17) mg/dL Glucose (74-99) mg/dL POC Glucose (mg/dL) 421 H 334 H 210 H (75-99) mg/dL AST (14-36) U/L ALT (4-34) U/L Total Protein (6.3-8.2) g/dL Albumin (3.5-5.0) g/dL 10/05/21 10/05/21 10/05/21 Range/Units 09:34 09:34 11:33 WBC 17.5 H (3.8-10.6) k/uL RBC 3.69 L (3.80-5.40) m/uL Hct 33.4 L (34.0-46.0) % Neutrophils # 16.3 H (1.3-7.7) k/uL Lymphocytes # 0.4 L (1.0-4.8) k/uL Potassium 3.1 L (3.5-5.1) mmol/L BUN 30 H (7-17) mg/dL Glucose 243 H (74-99) mg/dL POC Glucose (mg/dL) 154 H (75-99) mg/dL AST 42 H (14-36) U/L ALT 64 H (4-34) U/L Total Protein 5.2 L (6.3-8.2) g/dL Albumin 2.7 L (3.5-5.0) g/dL
[2021-10-05] MEDS ORDERED: Potassium Replacement Protocol 1 EACH MISC MISCELLANE PRN (13:51)
--- NOTE | 2021-10-05 13:56 | P.PN ---
Subjective Progress Note Date: 10/05/21 This is a pleasant 76-year-old female admitted with acute hypoxic respiratory failure secondary to acute CHF exacerbation, acute asthma exacerbation as well as acute NSTEMI/Takotsubo syndrome, ejection fraction of 20-25% and multiple other medical issues. Diuresing well on oral Lasix with 24-hour I&O reflecting a negative fluid balance. Maintained O2 sats in the mid 90s on 2 L nasal cannula. Maintained on nebulized bronchodilators, IV steroids, bronchospastic- improving. Afebrile. Labs pending. Chest x-ray reporting prominent pulmonary vasculature, mild basilar infiltrates, atypical pulmonary edema with moderate volume overload, small left pleural effusion. Denies chest pain, palpitations. 10/03/21 yesterday afternoon developed atrial fibrillation with RVR, beta kelly dose increased, heparin drip initiated. Wheezy this morning with congested cough, telemetry currently controlled A. fib but reports that the night heart rate up into the 130s to 160s. Required BiPAP earlier this morning, O2 sats decreased to 91% on 4 L nasal cannula. Afebrile, labs pending. Denies chest pain, palpitations. 10/04/2021 chest x-ray yesterday reported bilateral pneumonia, reflective of possible aspiration pneumonia and Zosyn was initiated. Completed MBS reporting deep penetration, without aspiration. Speech therapy recommending patient remain on regular diet with thin liquids, with Direct Supervision with meals ,due to patient's impulsivity, sitting upright 90, no straw, liquids from cup, small bites and sips. Continues on nebulized bronchodilators, IV steroids, oral diuretics. Maintaining O2 sats in the high 90s on 4 L nasal cannula 10/05/2021 no overnight events .maintained on Zosyn, nebulized bronchodilators, IV steroids with O2 sats in the 90s on 3 L nasal cannula. Productive cough with green sputum, sputum culture ordered. Chest x-ray reporting improving left perihilar and left lower lobe infiltrates. Afebrile, WBC 17.5. Denies chest pain, palpitations. Objective - Vital Signs Vital signs: Vital Signs Temp 97.6 F 10/05/21 12:00 Pulse 80 10/05/21 12:47 Resp 18 10/05/21 12:50 BP 123/64 10/05/21 12:00 Pulse Ox 94 L 10/05/21 12:00 Intake & Output 10/04/21 10/05/21 10/05/21 18:59 06:59 18:59 Intake Total 380 10 Output Total 800 Balance 380 -790 Weight 64.8 kg 62.2 kg Intake: IV 200 10 Invasive Line 6 10 Piperacillin-Tazobactam 3 200 .375 gm In Sodium Chloride 0.9% 100 ml @ 25 mls/hr IVPB Q8HR [facility] Rx# :[id number] Oral 180 Output: Urine 800 Other: Voiding Method External Catheter External Catheter External Catheter # Voids 1 - Exam PHYSICAL EXAMINATION: GENERAL: Patient is alert and oriented x3,NAD HEENT: Pupils are round and equally reacting to light. EOMI. No scleral icterus. No conjunctival pallor. Oral mucosa moist. CARDIOVASCULAR: S1 and S2. Irregular. No murmurs, rubs, or gallops. PULMONARY: Equal air entry into bilateral lung meredith , scattered rhonchi with diffuse expiratory wheezing ABDOMEN: Soft, nontender, nondistended, normoactive bowel sounds. No palpable organomegaly. EXTREMITIES: No cyanosis, clubbing, or pedal edema. NEUROLOGICAL: Gross neurological examination did not reveal any focal deficits. SKIN: Warm and dry, No rashes. - Labs CBC & Chem 7: 10/05/21 09:34 10/05/21 09:34 Labs: Abnormal Lab Results - Last 24 Hours (Table) 10/04/21 10/04/21 10/05/21 Range/Units 16:29 20:30 07:03 WBC (3.8-10.6) k/uL RBC (3.80-5.40) m/uL Hct (34.0-46.0) % Neutrophils # (1.3-7.7) k/uL Lymphocytes # (1.0-4.8) k/uL Potassium (3.5-5.1) mmol/L BUN (7-17) mg/dL Glucose (74-99) mg/dL POC Glucose (mg/dL) 421 H 334 H 210 H (75-99) mg/dL AST (14-36) U/L ALT (4-34) U/L Total Protein (6.3-8.2) g/dL Albumin (3.5-5.0) g/dL 10/05/21 10/05/21 10/05/21 Range/Units 09:34 09:34 11:33 WBC 17.5 H (3.8-10.6) k/uL RBC 3.69 L (3.80-5.40) m/uL Hct 33.4 L (34.0-46.0) % Neutrophils # 16.3 H (1.3-7.7) k/uL Lymphocytes # 0.4 L (1.0-4.8) k/uL Potassium 3.1 L (3.5-5.1) mmol/L BUN 30 H (7-17) mg/dL Glucose 243 H (74-99) mg/dL POC Glucose (mg/dL) 154 H (75-99) mg/dL AST 42 H (14-36) U/L ALT 64 H (4-34) U/L Total Protein 5.2 L (6.3-8.2) g/dL Albumin 2.7 L (3.5-5.0) g/dL Assessment and Plan Assessment: Acute non-STEMI, nonischemic cardiomyopathy,Takotsubo syndrome, EF 20-25% Acute CHF exacerbation with systolic dysfunction Acute asthma exacerbation Acute bilateral pneumonia, suspicious for aspiration pneumonia. MBS reported no aspiration. Penetration as per MBS, direct supervision with with meals as mentioned above in note Acute hypoxic respiratory failure secondary to all the above A. fib with RVR, converted to sinus rhythm Diabetes mellitus II, uncontrolled, hyperglycemic Hypertension Hyperlipidemia Hypovolemic hyponatremia, resolved Obesity, BMI 29.8 Gastroesophageal reflux disease Obstructive Sleep apnea, with CPAP, BiPAP at home Anxiety Plan: Continue on current medication regime ,monitoring and symptomatic treatment. Sputum culture pending. Aspiration precautions. Aggressive pulmonary toileting with nebulized bronchodilators, IV steroids. Ambulating with PT in hallway with oxygen, tolerated exertion well-weaning of oxygen in progress. Discharge planning in progress possibly for tomorrow pending final DC recommendations and clearance from pulmonary. The impression and plan of care has been dictated as directed. : I performed a history and examination of this patient, discussed the same with the dictator. I agree with the dictator's note ,documented as a scribe. Any additional findings or plans will be noted.
[2021-10-05] MEDS ORDERED: Magnesium Replacement Protocol 1 EACH MISC MISCELLANE PRN (14:00)
[2021-10-05 16:42] LABS: Glucose,Whole Blood 215 mg/dL (75-99)
[2021-10-05 18:20] LABS: Magnesium 2.1 mg/dL (1.6-2.3)
[2021-10-05 18:25] LABS: Potassium 2.7 mmol/L (3.5-5.1)
[2021-10-05 19:57] LABS: Glucose,Whole Blood 275 mg/dL (75-99)
[2021-10-05] MEDS: POTASSIUM CHLORIDE ER 20 MEQ TAB.ER PO SCH ×2 (21:36→23:16)
[2021-10-05] MEDS: MONTELUKAST 10 MG TAB PO SCH (21:36)
[2021-10-05] MEDS: LATANOPROST 0.005% OPHTH DROPS 2.5 ML BTL RIGHT EYE SCH (21:38)
[2021-10-06] MEDS: POTASSIUM CHLORIDE ER 20 MEQ TAB.ER PO SCH ×4 (00:22→17:36)
[2021-10-06 07:11] LABS: Glucose,Whole Blood 271 mg/dL (75-99)
[2021-10-06] MEDS: PANTOPRAZOLE 40 MG TABLET PO SCH (07:12)
[2021-10-06] MEDS: metFORMIN 500 MG TAB PO SCH ×3 (07:12→16:31)
[2021-10-06] MEDS: INSULIN ASPART (NovoLOG) 100 UNIT/ML VIAL SQ SCH ×7 (07:12→21:44)
[2021-10-06] MEDS: INSULIN DETEMIR (LEVEMIR) 100 UNIT/ML SYR SQ SCH (07:13)
[2021-10-06] MEDS: BUDESONIDE 1 MG/2 ML NEBU INHALATION SCH ×2 (07:25→19:52)
[2021-10-06] MEDS: FORMOTEROL FUMARATE 20 MCG/2 ML NEBU INHALATION SCH ×2 (07:25→19:52)
[2021-10-06] MEDS: IPRATROPIUM-ALBUTEROL 3 ML NEB INHALATION SCH ×4 (07:25→19:52)
[2021-10-06 09:33] LABS: Basophils % (A) 0 %; Eosinophils % (A) 0 %; HCT 35.6 % (34.0-46.0); HGB 11.7 gm/dL (11.4-16.0); Lymphocytes # (A) 0.4 k/uL (1.0-4.8); Lymphocytes % (A) 3 %; MCH 30.3 pg (25.0-35.0); MCHC 32.7 g/dL (31.0-37.0); MCV 92.7 fL (80.0-100.0); Mean Platelet Volume 8.6; Monocytes # (A) 0.4 k/uL (0-1.0); Monocytes % (A) 3 %; Neutrophils # (A) 11.4 k/uL (1.3-7.7); Neutrophils % (A) 92 %; Platelet Count 266 k/uL (150-450); RBC 3.84 m/uL (3.80-5.40); RDW 13.3 % (11.5-15.5); WBC 12.4 k/uL (3.8-10.6)
[2021-10-06 09:45] LABS: African American GFR (CKD) >90 (>60 ml/min/1.73 sqM); Anion Gap 9 mmol/L; Blood Urea Nitrogen 28 mg/dL (7-17); Calcium 8.1 mg/dL (8.4-10.2); Carbon Dioxide 29 mmol/L (22-30); Chloride 103 mmol/L (98-107); Glucose 340 mg/dL (74-99); Magnesium 1.9 mg/dL (1.6-2.3); Non-African American GFR(CKD) 86 (>60 ml/min/1.73 sqM); Sodium 141 mmol/L (137-145)
[2021-10-06] MEDS: methylPREDNISolone SOD SUCCI 40 MG/ML 1 ML VIAL IV SCH ×2 (09:45→21:43)
[2021-10-06] MEDS: METOPROLOL TARTRATE 25 MG TAB PO SCH ×2 (09:46→21:43)
[2021-10-06] MEDS: ASPIRIN 81 MG PO SCH (09:46)
[2021-10-06] MEDS: SPIRONOLACTONE 25 MG TAB PO SCH (09:46)
[2021-10-06] MEDS: PIPERACILLIN-TAZOBACTAM 3.375 GM in SODIUM CHLORIDE 0.9% 100 ML IVPB SCH ×2 (09:46→17:36)
[2021-10-06] MEDS: CHOLECALCIFEROL 25 MCG (1000 IU) TABLET PO SCH (09:46)
[2021-10-06] MEDS: APIXABAN 5 MG TAB PO SCH ×2 (09:46→21:43)
[2021-10-06] MEDS: AMIODARONE 200 MG TAB PO SCH ×2 (09:46→21:43)
[2021-10-06] MEDS: FUROSEMIDE 40 MG TAB PO SCH ×2 (09:47→16:31)
[2021-10-06] MEDS: SUCRALFATE 1 GM TAB PO SCH ×3 (09:47→21:43)
[2021-10-06] MEDS: ATORVASTATIN 40 MG TAB PO SCH (09:47)
[2021-10-06] MEDS: KETOROLAC 0.5% OPHTH DROPS 5 ML BTL RIGHT EYE SCH ×4 (09:47→21:44)
[2021-10-06 10:27] LABS: Potassium 2.7 mmol/L (3.5-5.1)
[2021-10-06] MEDS ORDERED: Potassium Replacement Protocol 1 EACH MISC MISCELLANE PRN (11:06)
[2021-10-06 11:58] LABS: Glucose,Whole Blood 229 mg/dL (75-99)
--- NOTE | 2021-10-06 12:32 | P.PN ---
Subjective Progress Note Date: 10/06/21 Principal diagnosis: Dyspnea On 10/01/2021 patient seen in follow-up on selective care unit, she sits up in the chair, she is currently off BiPAP, and on 4 L of oxygen, pulse ox is 97%, she did wear BiPAP last night with pressures of 12/6 and FiO2 of 60%. Overall she is breathing better today, still has diffuse rhonchi and rales throughout the lung meredith, she is currently on oral Lasix, she is in -970 mL net fluid balance over the last 24 hours, she has been transitioned to oral Lasix 40 mg by mouth twice daily, she remains on IV Solu-Medrol 40 mg every 8 hours, and neb ulized bronchodilators. She denies any chest pain. Her echocardiogram showed borderline concentric LVH, and severely impaired LV function with EF of 20-25%. Today's labs have been reviewed, electrolytes are within normal limits, BUN is 32 creatinine 0.69. On 10/02/2021 patient seen in follow-up. Patient is breathing more comfortably, she is currently on 2 L of oxygen with a pulse ox of 94-96%, she has been afebrile, denied any chest pain, no cough, no phlegm production, minimal wheezing. Today's chest x-ray shows mild bibasilar infiltrates, most likely related to atypical pulmonary edema, moderate volume overload. And small pleural effusion is present, overall findings are improved compared most recent chest x-ray from 09/30/2021. Patient is currently on oral Lasix 40 mg twice daily. She is in -940 mL net fluid balance. No lower extremity edema. Today's labs have been reviewed, sodium is 139, potassium 3.4, chloride is 106, BUN is 28, creatinine is 0.5. Patient is on nebulized bronchodilators, and IV Solu- Medrol 40 mg every 8 hours. Echocardiogram has been completed showing severely impaired left ventricle systolic function with EF of 20-25%, mild aortic valve sclerosis and regurgitation, mild TR. Patient is on Lopressor 25 mg twice daily, she is on oral Lasix, Aldactone, Lipitor 40 mg daily, aspirin and Plavix, cardiology is following. On 10/03/2021 patient seen in follow-up. Patient has been noted to be intermittently more dyspneic, and wheezing, and no she is suspected to be intermittently aspirating on food. Swallow evaluation will be obtained, lung sounds are positive for diffuse wheezes, patient is still dyspneic, she is currently on 4 L of oxygen pulse ox is 97%, she is afebrile, today's labs have been reviewed, her white blood cell count has increased to 15.6, hemoglobin is 13.7, sodium is 133, the rest of electrolytes are within normal limits, and her BUN was 38, and creatinine 0.62. Patient did have a couple episodes of increased shortness of breath, wheezing, and pulmonary congestion, fluid overload with suspected, she did receive the next dose of IV Lasix. She is on maintenance dose oral Lasix right now, 40 mg twice a day. She is in negative fluid balance. She has converted to sinus mechanism, rate is controlled, she remains on amiodarone infusion at 0.5 mg per hour, and heparin infusion, cardiology is following, and is planning on transitioning the patient to oral amiodarone and possibly oral anticoagulation. No hemoptysis, patient is not bringing up any phlegm, no chest pain. On today's evaluation on 10/04/2021 patient seen in follow-up on selective care unit. She is awake and alert, in no acute distress, sounds less congested today, however still wheezy, in has diffuse rhonchi and rales. [facility] chest x- ray showed bilateral pneumonia, and aspiration pneumonia was strongly suspected. Patient had a swallow evaluation, she had a modified barium swallow, which showed deep penetration with coating of focal folds within liquids, mild residuals, no aspiration. Patient was started on Zosyn. She remains on IV s teroids and breathing treatments. Patient also remains on oral Lasix 40 mg twice daily. Overall she states she is feeling better, and breathing easier today. Remains on 4 L of oxygen. Pulse ox of 98%. On today's evaluation on 10/05/2021 patient seen in follow-up on selective care unit, she states her breathing is improving, still coughing, but is now starting to bring up some greenish colored phlegm, remains on Zosyn, nebulized bronchodilators and steroids, today's chest x-ray showing improvement in appearance of left perihilar and left lower lobe infiltrates. Denies any chest discomfort, no hemoptysis, vitals been stable overnight On today's evaluation on 10/06/2021 patient seen in follow-up on selective care unit, she is currently on 2 L of oxygen, with a pulse ox of 94%, she's been afebrile, hemodynamically she is stable, she still has coughing spells, not producing a significant amount of phlegm, no hemoptysis no chest discomfort, she sounds better on physical exam today, no crackles, no wheezes, diminished breath sounds bilaterally, today's labs show improving white blood cell count, patient is on Zosyn for empiric antibiotic coverage for what was felt to be aspiration related pneumonia although patient did pass her modified barium swallow. She is on oral Lasix 40 mg twice daily, clinically she is improving, she is up in the chair, she is tolerating oral intake, no nausea or vomiting, she does require supervision with her meals as she tends to eat very fast. Otherwise no acute events overnight, Objective - Vital Signs Vital signs: Vital Signs Temp 97.9 F 10/06/21 08:00 Pulse 80 10/06/21 12:11 Resp 16 10/06/21 12:11 BP 145/67 10/06/21 08:00 Pulse Ox 98 10/06/21 08:00 Intake & Output 10/05/21 10/06/21 10/06/21 18:59 06:59 18:59 Intake Total 118 20 240 Output Total 2500 Balance 118 -2480 240 Weight 60.1 kg Intake: IV 20 Invasive Line 5 20 Oral 118 240 Output: Urine 500 Stool 2000 Other: Voiding Method External Catheter External Catheter External Catheter # Voids 1 # Bowel Movements 1 - Exam GENERAL EXAM: Alert, very pleasant, 76-year-old white female, on 2 L of oxygen and the pulse ox of 97% comfortable in no apparent distress. HEAD: Normocephalic/atraumatic. EYES: Normal reaction of pupils, equal size. Conjunctiva pink, sclera white. NOSE: Clear with pink turbinates. THROAT: No erythema or exudates. NECK: No masses, no JVD, no thyroid enlargement, no adenopathy. CHEST: No chest wall deformity. Symmetrical expansion. LUNGS: Equal air entry with diffuse wheezes and rhonchi CVS: Regular rate and rhythm, normal S1 and S2, no gallops, no murmurs, no rubs ABDOMEN: Soft, nontender. No hepatosplenomegaly, normal bowel sounds, no guardi ng or rigidity. EXTREMITIES: No clubbing, no edema, no cyanosis, 2+ pulses and upper and lower extremities. MUSCULOSKELETAL: Muscle strength and tone normal. SPINE: No scoliosis or deformity SKIN: No rashes CENTRAL NERVOUS SYSTEM: Alert and oriented -3. No focal deficits, tone is normal in all 4 extremities. PSYCHIATRIC: Alert and oriented -3. Appropriate affect. Intact judgment and insight. - Labs CBC & Chem 7: 10/06/21 08:42 10/06/21 08:42 Labs: Abnormal Lab Results - Last 24 Hours (Table) 10/05/21 10/05/21 10/05/21 Range/Units 16:30 17:40 19:55 WBC (3.8-10.6) k/uL Neutrophils # (1.3-7.7) k/uL Lymphocytes # (1.0-4.8) k/uL Potassium 2.7 L* (3.5-5.1) mmol/L BUN (7-17) mg/dL Glucose (74-99) mg/dL POC Glucose (mg/dL) 215 H 275 H (75-99) mg/dL Calcium (8.4-10.2) mg/dL 10/06/21 10/06/21 10/06/21 Range/Units 07:09 08:42 08:42 WBC 12.4 H (3.8-10.6) k/uL Neutrophils # 11.4 H (1.3-7.7) k/uL Lymphocytes # 0.4 L (1.0-4.8) k/uL Potassium 2.7 L* (3.5-5.1) mmol/L BUN 28 H (7-17) mg/dL Glucose 340 H (74-99) mg/dL POC Glucose (mg/dL) 271 H (75-99) mg/dL Calcium 8.1 L (8.4-10.2) mg/dL 10/06/21 Range/Units 11:47 WBC (3.8-10.6) k/uL Neutrophils # (1.3-7.7) k/uL Lymphocytes # (1.0-4.8) k/uL Potassium (3.5-5.1) mmol/L BUN (7-17) mg/dL Glucose (74-99) mg/dL POC Glucose (mg/dL) 229 H (75-99) mg/dL Calcium (8.4-10.2) mg/dL Microbiology - Last 24 Hours (Table) 10/05/21 19:11 Gram Stain - Preliminary Sputum Sputum Culture - Preliminary Assessment and Plan Plan: Assessment: #1. Acute hypoxic respiratory failure, multifactorial, secondary to acute exacerbation of CHF with systolic dysfunction, non-ST elevated myocardial infarction and acute exacerbation of mild intermittent bronchial asthma. On today's chest x-ray on 10/03/2021, patient has new bilateral infiltrates, with a suspicion of aspiration related pneumonia. patient had modified barium swallow which showed deep penetration but no aspiration. Remains on regular diet with thin liquids #2. Hyponatremia, hypervolemic, improved #3. 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 Hypertension #5. Diabetes type 2 #6. History of obstructive sleep apnea #7. Acute A. fib with RVR, on amiodarone and heparin infusion, has converted back to sinus rhythm Plan: Continue current medical treatment Still has episodes of coughing Sputum cultures pending No fever or chills, leukocytosis is improving Follow-up chest x-ray tomorrow Replace potassium per protocol Continue bronchodilators Provide supervision and assistance with meals Encouraged patient to sit upright for meals I performed a history & physical examination of the patient and discussed their management with my nurse practitioner, Roz Jacobo. I reviewed the nurse practitioner's note and agree with the documented findings and plan of care. Lung sounds are positive for diffuse crackles throughout the lung meredith. The findings and the impression was discussed with the patient. I attest to the documentation by the nurse practitioner. Time with Patient: Less than 30
--- NOTE | 2021-10-06 14:29 | P.PN ---
Subjective This is a pleasant 76 years old female with multiple medical problems as below presents with respiratory distress secondary to acute COPD exacerbation and left lower lobe pneumonia. Patient is been followed closely by pulmonary service and currently is covered with Solu-Medrol 40 mg and Zosyn. She is breathing quietly and she is hemodynamically stable. Her Solu-Medrol dose was lowered to 40 mg twice a day daily. Repeat chest x-ray tomorrow morning. Sputum culture is growing presumptive staph and gram-negative bacilli and continued with Zosyn pending final results of her sputum culture. [facility] have been following the patient for elevated troponin suspicious for non-STEMI with normal PCI and cardiac cath. Patient is suspected to have Takotsubo syndrome per [facility] which is nonischemic cardiomyopathy also patient with new onset A. fib with RVR. Patient is currently started on Eliquis 5 mg, her heart rate is controlled and technologies division chair signed off the case. Also patient is on oral Lasix 40 mg twice a day. Low potassium and magnesium were replaced per protocol and will be monitored today and tomorrow Patient might benefit from ECF for rehab upon discharge Objective - Vital Signs Vital signs: Vital Signs Temp 97.9 F 10/06/21 08:00 Pulse 80 10/06/21 12:11 Resp 16 10/06/21 12:11 BP 145/67 10/06/21 08:00 Pulse Ox 98 10/06/21 08:00 Intake & Output 10/05/21 10/06/21 10/06/21 18:59 06:59 18:59 Intake Total 118 20 240 Output Total 2500 Balance 118 -2480 240 Weight 60.1 kg Intake: IV 20 Invasive Line 5 20 Oral 118 240 Output: Urine 500 Stool 2000 Other: Voiding Method External Catheter External Catheter External Catheter # Voids 1 # Bowel Movements 1 - Exam GENERAL: The patient is alert and oriented x3, not in any acute distress. Well developed, well nourished. HEENT: Pupils are round and equally reacting to light. EOMI. No scleral icterus. No conjunctival pallor. Normocephalic, atraumatic. No pharyngeal erythema. No thyromegaly. CARDIOVASCULAR: S1 and S2 present. No murmurs, rubs, or gallops. -PULMONARY: Chest is clear to auscultation, no wheezing or crackles. Bilateral crepitation ABDOMEN: Soft, nontender, nondistended, normoactive bowel sounds. No palpable organomegaly. MUSCULOSKELETAL: No joint swelling or deformity. EXTREMITIES: No cyanosis, clubbing, or pedal edema. NEUROLOGICAL: Gross neurological examination did not reveal any focal deficits. SKIN: No rashes. No petechiae - Labs CBC & Chem 7: 10/06/21 08:42 10/06/21 08:42 Labs: Abnormal Lab Results - Last 24 Hours (Table) 10/05/21 10/05/21 10/05/21 Range/Units 16:30 17:40 19:55 WBC (3.8-10.6) k/uL Neutrophils # (1.3-7.7) k/uL Lymphocytes # (1.0-4.8) k/uL Potassium 2.7 L* (3.5-5.1) mmol/L BUN (7-17) mg/dL Glucose (74-99) mg/dL POC Glucose (mg/dL) 215 H 275 H (75-99) mg/dL Calcium (8.4-10.2) mg/dL 10/06/21 10/06/21 10/06/21 Range/Units 07:09 08:42 08:42 WBC 12.4 H (3.8-10.6) k/uL Neutrophils # 11.4 H (1.3-7.7) k/uL Lymphocytes # 0.4 L (1.0-4.8) k/uL Potassium 2.7 L* (3.5-5.1) mmol/L BUN 28 H (7-17) mg/dL Glucose 340 H (74-99) mg/dL POC Glucose (mg/dL) 271 H (75-99) mg/dL Calcium 8.1 L (8.4-10.2) mg/dL 10/06/21 Range/Units 11:47 WBC (3.8-10.6) k/uL Neutrophils # (1.3-7.7) k/uL Lymphocytes # (1.0-4.8) k/uL Potassium (3.5-5.1) mmol/L BUN (7-17) mg/dL Glucose (74-99) mg/dL POC Glucose (mg/dL) 229 H (75-99) mg/dL Calcium (8.4-10.2) mg/dL Microbiology - Last 24 Hours (Table) 10/05/21 19:11 Gram Stain - Preliminary Sputum Sputum Culture - Preliminary Presumptive Staph aureus Gram Neg Bacilli Assessment and Plan Assessment: Acute non-STEMI, with normal cardiac cath. nonischemic cardiomyopathy,Takotsubo syndrome, EF 20-25%. Acute systolic CHF exacerbation Acute COPD exacerbation Left lower lobe pneumonia with culture is growing gram-negative bacilli and presumptive staph New-onset A. fib, currently rate controlled and patient is on liquids Diabetes mellitus II, uncontrolled, hyperglycemic Hypertension Hyperlipidemia Hypovolemic hyponatremia, resolved Obesity, BMI 29.8 History of Gastroesophageal reflux disease Obstructive Sleep apnea, with CPAP, BiPAP at home Anxiety,not an active issue Plan: This is a pleasant 76 years old female who presents with pneumonia, COPD, CHF. Continue with Solu-Medrol, Zosyn and pulmonary team on the case repeat Chest x-ray Cardiology team signed off. Follow-up final results of sputum culture Labs and medication were reviewed.. Continue same treatment. Continue with symptomatic treatment. Resume home medication. Monitor lytes and vitals. DVT and GI prophylaxis. Further recommendationsas per clinical course of the patient DVT prophylaxis: Eliquis GI Prophylaxis: Ppi Prognosis is guarded
[2021-10-06] MEDS ORDERED: MAGNESIUM SULFATE-D5W PMX 1 GM in DEXTROSE/WATER 1 100ML.BAG IVPB ONE (15:00)
[2021-10-06 17:02] LABS: Glucose,Whole Blood 96 mg/dL (75-99)
[2021-10-06 19:52] LABS: Glucose,Whole Blood 220 mg/dL (75-99)
[2021-10-06] MEDS: LATANOPROST 0.005% OPHTH DROPS 2.5 ML BTL RIGHT EYE SCH (21:44)
[2021-10-06] MEDS: MONTELUKAST 10 MG TAB PO SCH (21:46)
[2021-10-07] MEDS: PIPERACILLIN-TAZOBACTAM 3.375 GM in SODIUM CHLORIDE 0.9% 100 ML IVPB SCH ×4 (00:49→23:34)
[2021-10-07 06:55] LABS: Glucose,Whole Blood 249 mg/dL (75-99)
[2021-10-07] MEDS: INSULIN DETEMIR (LEVEMIR) 100 UNIT/ML SYR SQ SCH (06:58)
[2021-10-07] MEDS: metFORMIN 500 MG TAB PO SCH ×3 (06:58→17:34)
[2021-10-07] MEDS: INSULIN ASPART (NovoLOG) 100 UNIT/ML VIAL SQ SCH ×7 (06:58→21:20)
[2021-10-07] MEDS: PANTOPRAZOLE 40 MG TABLET PO SCH (06:58)
--- NOTE | 2021-10-07 07:01 | XR ---
EXAMINATION TYPE: XR chest 1V portable DATE OF EXAM: 10/07/2021 COMPARISON: 10/05/2021 HISTORY: Follow-up pneumonia TECHNIQUE: Single frontal view of the chest is obtained. FINDINGS: The partially consolidative opacity in the left midlung zone has improved in the interval. The right lung remains essentially clear. Small pleural effusions not excluded. There is no pneumoth orax. Heart size is normal and there is no pulmonary vascular congestion. The osseous structures are intact. IMPRESSION: Improvement in the left mid lung infiltrate. No new abnormality seen.
[2021-10-07] MEDS: IPRATROPIUM-ALBUTEROL 3 ML NEB INHALATION SCH ×4 (07:52→18:55)
[2021-10-07] MEDS: FORMOTEROL FUMARATE 20 MCG/2 ML NEBU INHALATION SCH ×2 (07:52→18:55)
[2021-10-07] MEDS: BUDESONIDE 1 MG/2 ML NEBU INHALATION SCH ×2 (07:53→19:22)
[2021-10-07] MEDS: ATORVASTATIN 40 MG TAB PO SCH (08:13)
[2021-10-07] MEDS: SPIRONOLACTONE 25 MG TAB PO SCH (08:13)
[2021-10-07] MEDS: AMIODARONE 200 MG TAB PO SCH ×2 (08:13→21:16)
[2021-10-07] MEDS: FUROSEMIDE 40 MG TAB PO SCH ×2 (08:13→15:45)
[2021-10-07] MEDS: ASPIRIN 81 MG PO SCH (08:13)
[2021-10-07] MEDS: CHOLECALCIFEROL 25 MCG (1000 IU) TABLET PO SCH (08:13)
[2021-10-07] MEDS: methylPREDNISolone SOD SUCCI 40 MG/ML 1 ML VIAL IV SCH ×2 (08:13→21:17)
[2021-10-07] MEDS: METOPROLOL TARTRATE 25 MG TAB PO SCH ×2 (08:13→21:17)
[2021-10-07] MEDS: SUCRALFATE 1 GM TAB PO SCH ×3 (08:14→21:15)
[2021-10-07] MEDS: APIXABAN 5 MG TAB PO SCH ×2 (08:14→21:15)
[2021-10-07] MEDS: KETOROLAC 0.5% OPHTH DROPS 5 ML BTL RIGHT EYE SCH ×4 (08:14→21:20)
--- NOTE | 2021-10-07 09:40 | P.PN ---
Subjective This is a pleasant 76 years old female with multiple medical problems as below presents with respiratory distress secondary to acute COPD exacerbation and left lower lobe pneumonia. Patient is been followed closely by pulmonary service and currently is covered with Solu-Medrol 40 mg and Zosyn. She is breathing quietly and she is hemodynamically stable. Her Solu-Medrol dose was lowered to 40 mg twice a day daily. Repeat chest x-ray tomorrow morning. Sputum culture is growing presumptive staph and gram-negative bacilli and continued with Zosyn pending final results of her sputum culture. Trauma Therapist have been following the patient for elevated troponin suspicious for non-STEMI with normal PCI and cardiac cath. Patient is suspected to have Takotsubo syndrome per Trauma Therapist which is nonischemic cardiomyopathy also patient with new onset A. fib with RVR. Patient is currently started on Eliquis 5 mg, her heart rate is controlled and electric powerline examiner signed off the case. Also patient is on oral Lasix 40 mg twice a day. Low potassium and magnesium were replaced per protocol and will be monitored today and tomorrow Patient might benefit from ECF for rehab upon discharge 10/07/2021 Patient admitted with COPD and left lower lobe pneumonia. She is doing better and her breathing is improving. No significant coughing or chest pain. She is saturating 95% on room air and with the rate at 18 Her chest x-ray showing Improvement in the left mid lung infiltrate. No new abnormality seen Labs from today are still pending. Sputum culture growing presumptive staph and gram-negative bacilli pending final results. She remains on Zosyn and Solu-Medrol 40 mg twice daily. Home dose of Eliquis 5 mg and aspirin 81 mg for new onset A. fib. Cardiology team already signed off the case. She is currently on oral Lasix 40 mg twice daily. Objective - Vital Signs Vital signs: Vital Signs Temp 97.7 F 10/07/21 08:10 Pulse 75 10/07/21 08:10 Resp 18 10/07/21 08:10 BP 130/65 10/07/21 08:10 Pulse Ox 95 10/07/21 08:10 Intake & Output 10/06/21 10/07/21 10/07/21 19:59 06:59 18:59 Intake Total 360 Output Total Balance 360 Weight Intake: IV Invasive Line 5 Oral 360 Output: Urine Other: Voiding Method # Voids # Bowel Movements - Exam GENERAL: The patient is alert and oriented x3, not in any acute distress. Well developed, well nourished. HEENT: Pupils are round and equally reacting to light. EOMI. No scleral icterus. No conjunctival pallor. Normocephalic, atraumatic. No pharyngeal erythema. No thyromegaly. CARDIOVASCULAR: S1 and S2 present. No murmurs, rubs, or gallops. -PULMONARY: Chest is clear to auscultation, no wheezing or crackles. Bilateral crepitation ABDOMEN: Soft, nontender, nondistended, normoactive bowel sounds. No palpable organomegaly. MUSCULOSKELETAL: No joint swelling or deformity. EXTREMITIES: No cyanosis, clubbing, or pedal edema. NEUROLOGICAL: Gross neurological examination did not reveal any focal deficits. SKIN: No rashes. No petechiae - Labs CBC & Chem 7: 10/06/21 08:42 10/06/21 16:56 Labs: Abnormal Lab Results - Last 24 Hours (Table) 10/06/21 10/06/21 10/06/21 Range/Units 11:47 16:56 19:51 Potassium 3.1 L (3.5-5.1) mmol/L POC Glucose (mg/dL) 229 H 220 H (75-99) mg/dL 10/07/21 Range/Units 06:54 Potassium (3.5-5.1) mmol/L POC Glucose (mg/dL) 249 H (75-99) mg/dL Microbiology - Last 24 Hours (Table) 10/05/21 19:11 Gram Stain - Preliminary Sputum Sputum Culture - Preliminary Presumptive Staph aureus Gram Neg Bacilli Assessment and Plan Assessment: Acute non-STEMI, with normal cardiac cath. nonischemic cardiomyopathy,Takotsubo syndrome, EF 20-25%. Acute systolic CHF exacerbation Acute COPD exacerbation Left lower lobe pneumonia with culture is growing gram-negative bacilli and presumptive staph New-onset A. fib, currently rate controlled and patient is on liquids Diabetes mellitus II, uncontrolled, hyperglycemic Hypertension Hyperlipidemia Hypovolemic hyponatremia, resolved Obesity, BMI 29.8 History of Gastroesophageal reflux disease Obstructive Sleep apnea, with CPAP, BiPAP at home Anxiety,not an active issue Plan: This is a pleasant 76 years old female who presents with pneumonia, COPD, CHF. Continue with Solu-Medrol, Zosyn and pulmonary team on the case Follow-up sputum culture and labs from today Cardiology team signed off. Follow-up final results of sputum culture Labs and medication were reviewed.. Continue same treatment. Continue with symptomatic treatment. Resume home medication. Monitor lytes and vitals. DVT and GI prophylaxis. Further recommendationsas per clinical course of the patient DVT prophylaxis: Eliquis GI Prophylaxis: Ppi
[2021-10-07 10:36] LABS: African American GFR (CKD) >90 (>60 ml/min/1.73 sqM); Anion Gap 9 mmol/L; Blood Urea Nitrogen 26 mg/dL (7-17); Calcium 8.5 mg/dL (8.4-10.2); Carbon Dioxide 27 mmol/L (22-30); Chloride 102 mmol/L (98-107); Glucose 238 mg/dL (74-99); Magnesium 2.2 mg/dL (1.6-2.3); Non-African American GFR(CKD) >90 (>60 ml/min/1.73 sqM); Potassium 3.5 mmol/L (3.5-5.1); Sodium 138 mmol/L (137-145)
[2021-10-07] MEDS ORDERED: Potassium Replacement Protocol 1 EACH MISC MISCELLANE PRN (10:44)
[2021-10-07 11:08] LABS: Basophils # (A) 0.1 k/uL (0-0.2); Basophils % (A) 0 %; Eosinophils % (A) 0 %; HCT 38.5 % (34.0-46.0); HGB 12.5 gm/dL (11.4-16.0); Lymphocytes # (A) 0.6 k/uL (1.0-4.8); Lymphocytes % (A) 3 %; MCHC 32.4 g/dL (31.0-37.0); MCV 92.6 fL (80.0-100.0); Mean Platelet Volume 8.8; Monocytes # (A) 0.8 k/uL (0-1.0); Monocytes % (A) 4 %; Neutrophils # (A) 16.6 k/uL (1.3-7.7); Neutrophils % (A) 92 %; Platelet Count 251 k/uL (150-450); RBC 4.16 m/uL (3.80-5.40); RDW 12.7 % (11.5-15.5); WBC 18.1 k/uL (3.8-10.6)
[2021-10-07 11:54] LABS: Glucose,Whole Blood 138 mg/dL (75-99)
[2021-10-07] MEDS: POTASSIUM CHLORIDE ER 20 MEQ TAB.ER PO SCH ×2 (12:53→14:56)
[2021-10-07] MEDS ORDERED: VANCOMYCIN IV PER PHARMACY 1 EACH MISC MISCELLANE PRN (14:04)
--- NOTE | 2021-10-07 14:07 | P.PN ---
Subjective Progress Note Date: 10/07/21 Principal diagnosis: Dyspnea On 10/01/2021 patient seen in follow-up on selective care unit, she sits up in the chair, she is currently off BiPAP, and on 4 L of oxygen, pulse ox is 97%, she did wear BiPAP last night with pressures of 12/6 and FiO2 of 60%. Overall she is breathing better today, still has diffuse rhonchi and rales throughout the lung meredith, she is currently on oral Lasix, she is in -970 mL net fluid balance over the last 24 hours, she has been transitioned to oral Lasix 40 mg by mouth twice daily, she remains on IV Solu-Medrol 40 mg every 8 hours, and neb ulized bronchodilators. She denies any chest pain. Her echocardiogram showed borderline concentric LVH, and severely impaired LV function with EF of 20-25%. Today's labs have been reviewed, electrolytes are within normal limits, BUN is 32 creatinine 0.69. On 10/02/2021 patient seen in follow-up. Patient is breathing more comfortably, she is currently on 2 L of oxygen with a pulse ox of 94-96%, she has been afebrile, denied any chest pain, no cough, no phlegm production, minimal wheezing. Today's chest x-ray shows mild bibasilar infiltrates, most likely related to atypical pulmonary edema, moderate volume overload. And small pleural effusion is present, overall findings are improved compared most recent chest x-ray from 09/30/2021. Patient is currently on oral Lasix 40 mg twice daily. She is in -940 mL net fluid balance. No lower extremity edema. Today's labs have been reviewed, sodium is 139, potassium 3.4, chloride is 106, BUN is 28, creatinine is 0.5. Patient is on nebulized bronchodilators, and IV Solu- Medrol 40 mg every 8 hours. Echocardiogram has been completed showing severely impaired left ventricle systolic function with EF of 20-25%, mild aortic valve sclerosis and regurgitation, mild TR. Patient is on Lopressor 25 mg twice daily, she is on oral Lasix, Aldactone, Lipitor 40 mg daily, aspirin and Plavix, cardiology is following. On 10/03/2021 patient seen in follow-up. Patient has been noted to be intermittently more dyspneic, and wheezing, and no she is suspected to be intermittently aspirating on food. Swallow evaluation will be obtained, lung sounds are positive for diffuse wheezes, patient is still dyspneic, she is currently on 4 L of oxygen pulse ox is 97%, she is afebrile, today's labs have been reviewed, her white blood cell count has increased to 15.6, hemoglobin is 13.7, sodium is 133, the rest of electrolytes are within normal limits, and her BUN was 38, and creatinine 0.62. Patient did have a couple episodes of increased shortness of breath, wheezing, and pulmonary congestion, fluid overload with suspected, she did receive the next dose of IV Lasix. She is on maintenance dose oral Lasix right now, 40 mg twice a day. She is in negative fluid balance. She has converted to sinus mechanism, rate is controlled, she remains on amiodarone infusion at 0.5 mg per hour, and heparin infusion, cardiology is following, and is planning on transitioning the patient to oral amiodarone and possibly oral anticoagulation. No hemoptysis, patient is not bringing up any phlegm, no chest pain. On today's evaluation on 10/04/2021 patient seen in follow-up on selective care unit. She is awake and alert, in no acute distress, sounds less congested today, however still wheezy, in has diffuse rhonchi and rales. Estrace chest x- ray showed bilateral pneumonia, and aspiration pneumonia was strongly suspected. Patient had a swallow evaluation, she had a modified barium swallow, which showed deep penetration with coating of focal folds within liquids, mild residuals, no aspiration. Patient was started on Zosyn. She remains on IV s teroids and breathing treatments. Patient also remains on oral Lasix 40 mg twice daily. Overall she states she is feeling better, and breathing easier today. Remains on 4 L of oxygen. Pulse ox of 98%. On today's evaluation on 10/05/2021 patient seen in follow-up on selective care unit, she states her breathing is improving, still coughing, but is now starting to bring up some greenish colored phlegm, remains on Zosyn, nebulized bronchodilators and steroids, today's chest x-ray showing improvement in appearance of left perihilar and left lower lobe infiltrates. Denies any chest discomfort, no hemoptysis, vitals been stable overnight On today's evaluation on 10/06/2021 patient seen in follow-up on selective care unit, she is currently on 2 L of oxygen, with a pulse ox of 94%, she's been afebrile, hemodynamically she is stable, she still has coughing spells, not producing a significant amount of phlegm, no hemoptysis no chest discomfort, she sounds better on physical exam today, no crackles, no wheezes, diminished breath sounds bilaterally, today's labs show improving white blood cell count, patient is on Zosyn for empiric antibiotic coverage for what was felt to be aspiration related pneumonia although patient did pass her modified barium swallow. She is on oral Lasix 40 mg twice daily, clinically she is improving, she is up in the chair, she is tolerating oral intake, no nausea or vomiting, she does require supervision with her meals as she tends to eat very fast. Otherwise no acute events overnight, On 10/07/2021 patient seen in follow-up on selective care unit, she is currently on room air, her pulse ox is 95%, she is doing much better, less dyspneic, less bronchospastic, today's follow-up chest x-ray has been reviewed showing improvement in the appearance of bibasilar infiltrates. Patient remains on empiric antibiotic coverage in the form of Zosyn, she is on nebulized bronchodilators, she is on oral Lasix. Today's labs have been reviewed, blood cell count has increased, but patient has been on IV steroids as well. No fever or chills. No acute events overnight, renal profile is stable, follow-up stone will be sent. Sputum culture showed presumptive staph aureus, and Klebsiella pneumonia Objective - Vital Signs Vital signs: Vital Signs Temp 97.1 F L 10/07/21 12:50 Pulse 68 10/07/21 12:50 Resp 16 10/07/21 12:50 BP 121/56 10/07/21 12:50 Pulse Ox 95 10/07/21 12:50 Intake & Output 10/06/21 10/07/21 10/07/21 19:59 06:59 18:59 Intake Total 1420 Output Total 2000 Balance -580 Weight Intake: IV 100 Invasive Line 5 Piperacillin-Tazobactam 3 100 .375 gm In Sodium Chloride 0.9% 100 ml @ 25 mls/hr IVPB Q8HR [facility] Rx# :[id number] Oral 1320 Output: Urine Stool 2000 Other: Voiding Method External Catheter # Voids # Bowel Movements - Exam GENERAL EXAM: Alert, very pleasant, 76-year-old white female, on room air with pulse ox 95% comfortable in no apparent distress. HEAD: Normocephalic/atraumatic. EYES: Normal reaction of pupils, equal size. Conjunctiva pink, sclera white. NOSE: Clear with pink turbinates. THROAT: No erythema or exudates. NECK: No masses, no JVD, no thyroid enlargement, no adenopathy. CHEST: No chest wall deformity. Symmetrical expansion. LUNGS: Equal air entry with diffuse wheezes and rhonchi CVS: Regular rate and rhythm, normal S1 and S2, no gallops, no murmurs, no rubs ABDOMEN: Soft, nontender. No hepatosplenomegaly, normal bowel sounds, no guarding or rigidity. EXTREMITIES: No clubbing, no edema, no cyanosis, 2+ pulses and upper and lower extremities. MUSCULOSKELETAL: Muscle strength and tone normal. SPINE: No scoliosis or deformity SKIN: No rashes CENTRAL NERVOUS SYSTEM: Alert and oriented -3. No focal deficits, tone is normal in all 4 extremities. PSYCHIATRIC: Alert and oriented -3. Appropriate affect. Intact judgment and insight. - Labs CBC & Chem 7: 10/07/21 09:38 10/07/21 09:38 Labs: Abnormal Lab Results - Last 24 Hours (Table) 10/06/21 10/06/21 10/07/21 Range/Units 16:56 19:51 06:54 WBC (3.8-10.6) k/uL Neutrophils # (1.3-7.7) k/uL Lymphocytes # (1.0-4.8) k/uL Potassium 3.1 L (3.5-5.1) mmol/L BUN (7-17) mg/dL Glucose (74-99) mg/dL POC Glucose (mg/dL) 220 H 249 H (75-99) mg/dL 10/07/21 10/07/21 10/07/21 Range/Units 09:38 09:38 11:42 WBC 18.1 H (3.8-10.6) k/uL Neutrophils # 16.6 H (1.3-7.7) k/uL Lymphocytes # 0.6 L (1.0-4.8) k/uL Potassium (3.5-5.1) mmol/L BUN 26 H (7-17) mg/dL Glucose 238 H (74-99) mg/dL POC Glucose (mg/dL) 138 H (75-99) mg/dL Microbiology - Last 24 Hours (Table) 10/05/21 19:11 Gram Stain - Preliminary Sputum Sputum Culture - Preliminary Presumptive Staph aureus Klebsiella pneumoniae Assessment and Plan Plan: Assessment: #1. Acute hypoxic respiratory failure, multifactorial, secondary to acute exacerbation of CHF with systolic dysfunction, non-ST elevated myocardial infarction and acute exacerbation of mild intermittent bronchial asthma. On today's chest x-ray on 10/03/2021, patient has new bilateral infiltrates, with a suspicion of aspiration related pneumonia. patient had modified barium swallow which showed deep penetration but no aspiration. Remains on regular diet with thin liquids #2. Pneumonia, possibly healthcare acquired, or aspiration related, sputum culture showed Klebsiella pneumonia and presumptive Staphylococcus aureus. Currently on Zosyn and vancomycin #3. Hyponatremia, hypervolemic, improved #4. 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 Hypertension #6. Diabetes type 2 #7. History of obstructive sleep apnea #8. Acute A. fib with RVR, on amiodarone and heparin infusion, has converted back to sinus rhythm Plan: Continue Zosyn We'll add vancomycin pharmacy to dose Will await final sputum cultures Continue current steroids, Continue nebulized bronchodilators and oral Lasix Today's chest x-ray has been reviewed showing improving bibasilar infiltrates We'll continue to follow her clinical course I performed a history & physical examination of the patient and discussed their management with my nurse practitioner, Roz Jacobo. I reviewed the nurse practitioner's note and agree with the documented findings and plan of care. Lung sounds are positive for diffuse crackles throughout the lung meredith. The findings and the impression was discussed with the patient. I attest to the documentation by the nurse practitioner. Time with Patient: Less than 30
[2021-10-07] MEDS: VANCOMYCIN 1,250 MG in SODIUM CHLORIDE 0.9% 250 ML IVPB SCH (15:45)
[2021-10-07 16:20] LABS: Glucose,Whole Blood 154 mg/dL (75-99)
[2021-10-07 20:04] LABS: Glucose,Whole Blood 182 mg/dL (75-99)
[2021-10-07] MEDS: MONTELUKAST 10 MG TAB PO SCH (21:16)
[2021-10-07] MEDS: LATANOPROST 0.005% OPHTH DROPS 2.5 ML BTL RIGHT EYE SCH (21:21)
[2021-10-08] MEDS: VANCOMYCIN 1,250 MG in SODIUM CHLORIDE 0.9% 250 ML IVPB SCH (05:49)
[2021-10-08 06:20] LABS: Basophils % (A) 0 %; Eosinophils % (A) 0 %; HCT 36.8 % (34.0-46.0); Lymphocytes # (A) 0.6 k/uL (1.0-4.8); Lymphocytes % (A) 4 %; MCH 30.2 pg (25.0-35.0); MCHC 32.7 g/dL (31.0-37.0); MCV 92.2 fL (80.0-100.0); Mean Platelet Volume 8.5; Monocytes # (A) 0.4 k/uL (0-1.0); Monocytes % (A) 3 %; Neutrophils # (A) 15.3 k/uL (1.3-7.7); Neutrophils % (A) 93 %; Platelet Count 261 k/uL (150-450); RDW 12.5 % (11.5-15.5); WBC 16.5 k/uL (3.8-10.6)
[2021-10-08 06:30] LABS: African American GFR (CKD) >90 (>60 ml/min/1.73 sqM); Anion Gap 4 mmol/L; Blood Urea Nitrogen 28 mg/dL (7-17); Calcium 8.2 mg/dL (8.4-10.2); Carbon Dioxide 30 mmol/L (22-30); Chloride 102 mmol/L (98-107); Glucose 260 mg/dL (74-99); Magnesium 1.8 mg/dL (1.6-2.3); Non-African American GFR(CKD) 86 (>60 ml/min/1.73 sqM); Potassium 3.9 mmol/L (3.5-5.1); Sodium 136 mmol/L (137-145)
[2021-10-08] MEDS: APIXABAN 5 MG TAB PO SCH ×2 (07:47→21:45)
[2021-10-08] MEDS: FUROSEMIDE 40 MG TAB PO SCH ×2 (07:47→16:52)
[2021-10-08] MEDS: AMIODARONE 200 MG TAB PO SCH ×2 (07:47→21:45)
[2021-10-08] MEDS: CHOLECALCIFEROL 25 MCG (1000 IU) TABLET PO SCH (07:47)
[2021-10-08] MEDS: PANTOPRAZOLE 40 MG TABLET PO SCH (07:48)
[2021-10-08] MEDS: SUCRALFATE 1 GM TAB PO SCH ×3 (07:48→21:45)
[2021-10-08] MEDS: METOPROLOL TARTRATE 25 MG TAB PO SCH ×2 (07:48→21:45)
[2021-10-08] MEDS: metFORMIN 500 MG TAB PO SCH ×3 (07:48→16:52)
[2021-10-08] MEDS: ATORVASTATIN 40 MG TAB PO SCH (07:48)
[2021-10-08] MEDS: ASPIRIN 81 MG PO SCH (07:48)
[2021-10-08] MEDS: SPIRONOLACTONE 25 MG TAB PO SCH (07:48)
[2021-10-08] MEDS: methylPREDNISolone SOD SUCCI 40 MG/ML 1 ML VIAL IV SCH (07:48)
[2021-10-08] MEDS: PIPERACILLIN-TAZOBACTAM 3.375 GM in SODIUM CHLORIDE 0.9% 100 ML IVPB SCH ×2 (07:49→16:52)
[2021-10-08] MEDS: KETOROLAC 0.5% OPHTH DROPS 5 ML BTL RIGHT EYE SCH ×4 (07:49→21:47)
[2021-10-08 07:52] LABS: Glucose,Whole Blood 349 mg/dL (75-99)
[2021-10-08] MEDS: INSULIN ASPART (NovoLOG) 100 UNIT/ML VIAL SQ SCH ×7 (07:55→21:46)
[2021-10-08] MEDS: INSULIN DETEMIR (LEVEMIR) 100 UNIT/ML SYR SQ SCH (07:55)
[2021-10-08] MEDS: IPRATROPIUM-ALBUTEROL 3 ML NEB INHALATION SCH ×5 (08:04→19:42)
[2021-10-08] MEDS: FORMOTEROL FUMARATE 20 MCG/2 ML NEBU INHALATION SCH ×2 (08:04→19:42)
[2021-10-08] MEDS: BUDESONIDE 1 MG/2 ML NEBU INHALATION SCH ×2 (08:04→19:42)
--- NOTE | 2021-10-08 10:20 | P.PN ---
Subjective Progress Note Date: 10/08/21 On 10/01/2021 patient seen in follow-up on selective care unit, she sits up in the chair, she is currently off BiPAP, and on 4 L of oxygen, pulse ox is 97%, she did wear BiPAP last night with pressures of 12/6 and FiO2 of 60%. Overall she is breathing better today, still has diffuse rhonchi and rales throughout the lung meredith, she is currently on oral Lasix, she is in -970 mL net fluid balance over the last 24 hours, she has been transitioned to oral Lasix 40 mg by mouth twice daily, she remains on IV Solu-Medrol 40 mg every 8 hours, and nebulized bronchodilators. She denies any chest pain. Her echocardiogram showed borderline concentric LVH, and severely impaired LV function with EF of 20-25%. Today's labs have been reviewed, electrolytes are within normal limits, BUN is 32 creatinine 0.69. On 10/02/2021 patient seen in follow-up. Patient is breathing more comfortably, she is currently on 2 L of oxygen with a pulse ox of 94-96%, she has been afebrile, denied any chest pain, no cough, no phlegm production, minimal wheezing. Today's chest x-ray shows mild bibasilar infiltrates, most likely related to atypical pulmonary edema, moderate volume overload. And small pleural effusion is present, overall findings are improved compared most recent chest x-ray from 09/30/2021. Patient is currently on oral Lasix 40 mg twice daily. She is in -940 mL net fluid balance. No lower extremity edema. Today's labs have been reviewed, sodium is 139, potassium 3.4, chloride is 106, BUN is 28, creatinine is 0.5. Patient is on nebulized bronchodilators, and IV Solu- Medrol 40 mg every 8 hours. Echocardiogram has been completed showing severely impaired left ventricle systolic function with EF of 20-25%, mild aortic valve sclerosis and regurgitation, mild TR. Patient is on Lopressor 25 mg twice daily, she is on oral Lasix, Aldactone, Lipitor 40 mg daily, aspirin and Plavix, cardiology is following. On 10/03/2021 patient seen in follow-up. Patient has been noted to be intermitt ently more dyspneic, and wheezing, and no she is suspected to be intermittently aspirating on food. Swallow evaluation will be obtained, lung sounds are positive for diffuse wheezes, patient is still dyspneic, she is currently on 4 L of oxygen pulse ox is 97%, she is afebrile, today's labs have been reviewed, her white blood cell count has increased to 15.6, hemoglobin is 13.7, sodium is 133, the rest of electrolytes are within normal limits, and her BUN was 38, and creatinine 0.62. Patient did have a couple episodes of increased shortness of breath, wheezing, and pulmonary congestion, fluid overload with suspected, she did receive the next dose of IV Lasix. She is on maintenance dose oral Lasix right now, 40 mg twice a day. She is in negative fluid balance. She has converted to sinus mechanism, rate is controlled, she remains on amiodarone infusion at 0.5 mg per hour, and heparin infusion, cardiology is following, and is planning on transitioning the patient to oral amiodarone and possibly oral anticoagulation. No hemoptysis, patient is not bringing up any phlegm, no chest pain. On today's evaluation on 10/04/2021 patient seen in follow-up on selective care unit. She is awake and alert, in no acute distress, sounds less congested today, however still wheezy, in has diffuse rhonchi and rales. Estrace chest x- ray showed bilateral pneumonia, and aspiration pneumonia was strongly suspected. Patient had a swallow evaluation, she had a modified barium swallow, which show ed deep penetration with coating of focal folds within liquids, mild residuals, no aspiration. Patient was started on Zosyn. She remains on IV steroids and breathing treatments. Patient also remains on oral Lasix 40 mg twice daily. Overall she states she is feeling better, and breathing easier today. Remains on 4 L of oxygen. Pulse ox of 98%. On today's evaluation on 10/05/2021 patient seen in follow-up on selective care unit, she states her breathing is improving, still coughing, but is now starting to bring up some greenish colored phlegm, remains on Zosyn, nebulized bronchodilators and steroids, today's chest x-ray showing improvement in appearance of left perihilar and left lower lobe infiltrates. Denies any chest discomfort, no hemoptysis, vitals been stable overnight On today's evaluation on 10/06/2021 patient seen in follow-up on [facility] care unit, she is currently on 2 L of oxygen, with a pulse ox of 94%, she's been afebrile, hemodynamically she is stable, she still has coughing spells, not producing a significant amount of phlegm, no hemoptysis no chest discomfort, she sounds better on physical exam today, no crackles, no wheezes, diminished breath sounds bilaterally, today's labs show improving white blood cell count, patient is on Zosyn for empiric antibiotic coverage for what was felt to be aspiration related pneumonia although patient did pass her modified barium swallow. She is on oral Lasix 40 mg twice daily, clinically she is improving, she is up in the chair, she is tolerating oral intake, no nausea or vomiting, she does require supervision with her meals as she tends to eat very fast. Otherwise no acute events overnight, On 10/07/2021 patient seen in follow-up on [facility] care unit, she is currently on room air, her pulse ox is 95%, she is doing much better, less dyspneic, less bronchospastic, today's follow-up chest x-ray has been reviewed showing improvement in the appearance of bibasilar infiltrates. Patient remains on empiric antibiotic coverage in the form of Zosyn, she is on nebulized bronchodilators, she is on oral Lasix. Today's labs have been reviewed, blood cell count has increased, but patient has been on IV steroids as well. No fever or chills. No acute events overnight, renal profile is stable, follow-up stone will be sent. Sputum culture showed presumptive staph aureus, and Klebsiella pneumonia On 10/08/2021, the patient is being seen in follow-up in the selective units. The patient was being treated for acute hypoxic respiratory failure, pneumonia with diastolic heart failure. The patient's was covered with antibiotics and the patient was on Zosyn and vancomycin was added yesterday. The patient was also being diuresis. Sputum culture was showing presumed staph aureus and Klebsiella pneumonia. The patient is doing well and she is currently on room air oxygen. Her blood sugars are elevated because of the systemic steroids. She is on antibiotic coverage with Zosyn and vancomycin. In terms of diuretics, she is taking Lasix 40 g by mouth twice a day. Blood work from today showing a white cell count of 16.5 which is slightly improved compared to yesterday, Lites are normal, serum bicarbonate 30, normal renal function with a creatinine of 0.65. Objective - Vital Signs Vital signs: Vital Signs Temp 97.7 F 10/08/21 08:00 Pulse 76 10/08/21 08:27 Resp 19 10/08/21 08:00 BP 147/69 10/08/21 08:00 Pulse Ox 94 L 10/08/21 08:00 Intake & Output 10/07/21 10/08/21 10/08/21 18:59 06:59 18:59 Intake Total 1900 240 Output Total 1999 Balance -100 240 Weight 53.8 kg Intake: IV 100 Piperacillin-Tazobactam 3 100 .375 gm In Sodium Chloride 0.9% 100 ml @ 25 mls/hr IVPB Q8HR [facility] Rx# :[id number] Oral 1800 240 Output: Stool 1999 Other: Voiding Method External Catheter External Catheter Toilet # Voids 1 1 1 # Bowel Movements 1 1 - Exam GENERAL EXAM: Alert, very pleasant, 76-year-old white female, on room air with pulse ox 95% comfortable in no apparent distress. HEAD: Normocephalic/atraumatic. EYES: Normal reaction of pupils, equal size. Conjunctiva pink, sclera white. NOSE: Clear with pink turbinates. THROAT: No erythema or exudates. NECK: No masses, no JVD, no thyroid enlargement, no adenopathy. CHEST: No chest wall deformity. Symmetrical expansion. LUNGS: Equal air entry with diffuse wheezes and rhonchi CVS: Regular rate and rhythm, normal S1 and S2, no gallops, no murmurs, no rubs ABDOMEN: Soft, nontender. No hepatosplenomegaly, normal bowel sounds, no guarding or rigidity. EXTREMITIES: No clubbing, no edema, no cyanosis, 2+ pulses and upper and lower extremities. MUSCULOSKELETAL: Muscle strength and tone normal. SPINE: No scoliosis or deformity SKIN: No rashes CENTRAL NERVOUS SYSTEM: Alert and oriented -3. No focal deficits, tone is normal in all 4 extremities. PSYCHIATRIC: Alert and oriented -3. Appropriate affect. Intact judgment and insight. - Labs CBC & Chem 7: 10/08/21 05:40 10/08/21 05:40 Labs: Abnormal Lab Results - Last 24 Hours (Table) 10/07/21 10/07/21 10/07/21 Range/Units 09:38 09:38 11:42 WBC 18.1 H (3.8-10.6) k/uL Neutrophils # 16.6 H (1.3-7.7) k/uL Lymphocytes # 0.6 L (1.0-4.8) k/uL Sodium (137-145) mmol/L BUN 26 H (7-17) mg/dL Glucose 238 H (74-99) mg/dL POC Glucose (mg/dL) 138 H (75-99) mg/dL Calcium (8.4-10.2) mg/dL 10/07/21 10/07/21 10/08/21 Range/Units 16:12 20:02 05:40 WBC 16.5 H (3.8-10.6) k/uL Neutrophils # 15.3 H (1.3-7.7) k/uL Lymphocytes # 0.6 L (1.0-4.8) k/uL Sodium (137-145) mmol/L BUN (7-17) mg/dL Glucose (74-99) mg/dL POC Glucose (mg/dL) 154 H 182 H (75-99) mg/dL Calcium (8.4-10.2) mg/dL 10/08/21 10/08/21 Range/Units 05:40 07:49 WBC (3.8-10.6) k/uL Neutrophils # (1.3-7.7) k/uL Lymphocytes # (1.0-4.8) k/uL Sodium 136 L (137-145) mmol/L BUN 28 H (7-17) mg/dL Glucose 260 H (74-99) mg/dL POC Glucose (mg/dL) 349 H (75-99) mg/dL Calcium 8.2 L (8.4-10.2) mg/dL Microbiology - Last 24 Hours (Table) 10/05/21 19:11 Gram Stain - Preliminary Sputum Sputum Culture - Preliminary Presumptive Staph aureus Klebsiella pneumoniae Assessment and Plan Plan: #1. Acute hypoxic respiratory failure, multifactorial, secondary to acute exacerbation of CHF with systolic dysfunction, non-ST elevated myocardial infarction and acute exacerbation of mild intermittent bronchial asthma. On today's chest x-ray on 10/03/2021, patient has new bilateral infiltrates, with a suspicion of aspiration related pneumonia. patient had modified barium swallow which showed deep penetration but no aspiration. Remains on regular diet with thin liquids. Note that the patient has been on room air oxygen pH is currently on accommodation of Zosyn and vancomycin. Chest x-ray stable with some limited infiltration of the lung bases. She is being diuresed. She is also on IV Solu- Medrol. #2. Pneumonia, possibly healthcare acquired, or aspiration related, sputum culture showed Klebsiella pneumonia and presumptive Staphylococcus aureus. C urrently on Zosyn and vancomycin #3. Hyponatremia, hypervolemic, improved #4. 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 Hypertension #6. Diabetes type 2 #7. History of obstructive sleep apnea #8. Acute A. fib with RVR, on amiodarone and heparin infusion, has converted back to sinus rhythm Plan: Continue Zosyn and vancomycin pending final cultures Stop the IV Solu Medrol and put the patient on prednisone burst taper improving bibasilar infiltrates on her follow-up chest x-ray and currently she is on room air oxygen We'll continue to follow her clinical course possible discharge within the next 24 hours once the final sputum culture is back and we'll modify antibiotics accordingly.
[2021-10-08 11:27] LABS: Glucose,Whole Blood 203 mg/dL (75-99)
--- NOTE | 2021-10-08 15:07 | P.PN ---
Subjective Progress Note Date: 10/08/21 This is a pleasant 76-year-old female admitted with acute hypoxic respiratory failure secondary to acute CHF exacerbation, acute asthma exacerbation as well as acute NSTEMI/Takotsubo syndrome, ejection fraction of 20-25% and multiple other medical issues. Diuresing well on oral Lasix with 24-hour I&O reflecting a negative fluid balance. Maintained O2 sats in the mid 90s on 2 L nasal cannula. Maintained on nebulized bronchodilators, IV steroids, bronchospastic- improving. Afebrile. Labs pending. Chest x-ray reporting prominent pulmonary vasculature, mild basilar infiltrates, atypical pulmonary edema with moderate volume overload, small left pleural effusion. Denies chest pain, palpitations. 10/03/21 yesterday afternoon developed atrial fibrillation with RVR, beta kelly dose increased, heparin drip initiated. Wheezy this morning with congested cough, telemetry currently controlled A. fib but reports that the night heart rate up into the 130s to 160s. Required BiPAP earlier this morning, O2 sats decreased to 91% on 4 L nasal cannula. Afebrile, labs pending. Denies chest pain, palpitations. 10/04/2021 chest x-ray yesterday reported bilateral pneumonia, reflective of possible aspiration pneumonia and Zosyn was initiated. Completed MBS reporting deep penetration, without aspiration. Speech therapy recommending patient remain on regular diet with thin liquids, with Direct Supervision with meals ,due to patient's impulsivity, sitting upright 90, no straw, liquids from cup, small bites and sips. Continues on nebulized bronchodilators, IV steroids, oral diuretics. Maintaining O2 sats in the high 90s on 4 L nasal cannula 10/05/2021 no overnight events .maintained on Zosyn, nebulized bronchodilators, IV steroids with O2 sats in the 90s on 3 L nasal cannula. Productive cough with green sputum, sputum culture ordered. Chest x-ray reporting improving left perihilar and left lower lobe infiltrates. Afebrile, WBC 17.5. Denies chest pain, palpitations. 10/08/2021 maintained on vancomycin and Zosyn. Sputum culture reporting presumptive staph aureus, Klebsiella pneumonia. Maintaining O2 sats in the 90s on room air. Afebrile. Chest x-ray of 10/07/2021 reporting left midlung infiltrate improvement. Objective - Vital Signs Vital signs: Vital Signs Temp 97.8 F 10/08/21 11:48 Pulse 71 10/08/21 13:06 Resp 18 10/08/21 13:06 BP 128/55 10/08/21 11:48 Pulse Ox 95 10/08/21 11:48 Intake & Output 10/07/21 10/08/21 10/08/21 18:59 06:59 18:59 Intake Total 1900 240 Output Total 1999 Balance -100 240 Weight 53.8 kg Intake: IV 100 Piperacillin-Tazobactam 3 100 .375 gm In Sodium Chloride 0.9% 100 ml @ 25 mls/hr IVPB Q8HR [facility] Rx# :[id number] Oral 1800 240 Output: Stool 2000 Other: Voiding Method External Catheter External Catheter Toilet # Voids 1 1 1 # Bowel Movements 1 1 - Exam PHYSICAL EXAMINATION: GENERAL: Patient is alert and oriented x3,NAD. HEENT: Pupils are round and equally reacting to light.EOMI. No scleral icterus. No conjunctival pallor. Oral mucosa moist. CARDIOVASCULAR: S1 and S2. Regular, No murmurs, rubs, or gallops. PULMONARY: Equal air entry into bilateral lung meredith , scattered rhonchi with diffuse expiratory wheezing ABDOMEN: Soft, nontender, nondistended, normoactive bowel sounds. No palpable organomegaly. EXTREMITIES: No cyanosis, clubbing, or pedal edema. NEUROLOGICAL: Gross neurological examination did not reveal any focal deficits. SKIN: Warm and dry, No rashes. - Labs CBC & Chem 7: 10/08/21 05:40 10/08/21 05:40 Labs: Abnormal Lab Results - Last 24 Hours (Table) 10/07/21 10/07/21 10/08/21 Range/Units 16:12 20:02 05:40 WBC 16.5 H (3.8-10.6) k/uL Neutrophils # 15.3 H (1.3-7.7) k/uL Lymphocytes # 0.6 L (1.0-4.8) k/uL Sodium (137-145) mmol/L BUN (7-17) mg/dL Glucose (74-99) mg/dL POC Glucose (mg/dL) 154 H 182 H (75-99) mg/dL Calcium (8.4-10.2) mg/dL 10/08/21 10/08/21 10/08/21 Range/Units 05:40 07:49 11:25 WBC (3.8-10.6) k/uL Neutrophils # (1.3-7.7) k/uL Lymphocytes # (1.0-4.8) k/uL Sodium 136 L (137-145) mmol/L BUN 28 H (7-17) mg/dL Glucose 260 H (74-99) mg/dL POC Glucose (mg/dL) 349 H 203 H (75-99) mg/dL Calcium 8.2 L (8.4-10.2) mg/dL Microbiology - Last 24 Hours (Table) 10/05/21 19:11 Gram Stain - Final Sputum Sputum Culture - Final Methicillin resist S. aureus Klebsiella pneumoniae Assessment and Plan Assessment: Acute non-STEMI, nonischemic cardiomyopathy,Takotsubo syndrome, EF 20-25% Acute CHF exacerbation with systolic dysfunction Acute asthma exacerbation Acute bilateral pneumonia, suspicious for aspiration pneumonia. MBS reported no aspiration. Penetration as per MBS, direct supervision with with meals as mentioned above in note Acute hypoxic respiratory failure secondary to all the above A. fib with RVR, converted to sinus rhythm Diabetes mellitus II, uncontrolled, hyperglycemic Hypertension Hyperlipidemia Hypovolemic hyponatremia, resolved Obesity, BMI 29.8 Gastroesophageal reflux disease Obstructive Sleep apnea, with CPAP, BiPAP at home Anxiety Plan: Continue on current medication regime ,monitoring and symptomatic treatment. Sputum culture finalizing. IV steroids discontinued with prednisone taper initiated. Aspiration precautions. Aggressive pulmonary toileting with nebulized bronchodilators. Discharge planning for tomorrow pending finalization of sputum culture with antibiotics Rec. as per pulmonary. The impression and plan of care has been dictated as directed. : I performed a history and examination of this patient, discussed the same with the dictator. I agree with the dictator's note ,documented as a scribe. Any additional findings or plans will be noted.
[2021-10-08 16:22] LABS: Glucose,Whole Blood 147 mg/dL (75-99)
[2021-10-08 20:08] LABS: Glucose,Whole Blood 145 mg/dL (75-99)
[2021-10-08] MEDS: MONTELUKAST 10 MG TAB PO SCH (21:46)
[2021-10-08] MEDS: LATANOPROST 0.005% OPHTH DROPS 2.5 ML BTL RIGHT EYE SCH (21:47)
[2021-10-08] MEDS ORDERED: VANCOMYCIN 1,250 MG in SODIUM CHLORIDE 0.9% 250 ML IVPB SCH (22:00)
[2021-10-09] MEDS: PIPERACILLIN-TAZOBACTAM 3.375 GM in SODIUM CHLORIDE 0.9% 100 ML IVPB SCH ×2 (00:20→08:41)
[2021-10-09] MEDS: PANTOPRAZOLE 40 MG TABLET PO SCH (06:23)
[2021-10-09 07:05] LABS: Glucose,Whole Blood 105 mg/dL (75-99)
[2021-10-09] MEDS: IPRATROPIUM-ALBUTEROL 3 ML NEB INHALATION SCH ×2 (07:37→10:45)
[2021-10-09] MEDS: FORMOTEROL FUMARATE 20 MCG/2 ML NEBU INHALATION SCH (07:37)
[2021-10-09] MEDS: BUDESONIDE 1 MG/2 ML NEBU INHALATION SCH (07:37)
[2021-10-09] MEDS: INSULIN ASPART (NovoLOG) 100 UNIT/ML VIAL SQ SCH ×4 (08:29→11:52)
[2021-10-09] MEDS: INSULIN DETEMIR (LEVEMIR) 100 UNIT/ML SYR SQ SCH (08:39)
[2021-10-09] MEDS: ASPIRIN 81 MG PO SCH (08:40)
[2021-10-09] MEDS: METOPROLOL TARTRATE 25 MG TAB PO SCH (08:40)
[2021-10-09] MEDS: AMIODARONE 200 MG TAB PO SCH (08:40)
[2021-10-09] MEDS: APIXABAN 5 MG TAB PO SCH (08:40)
[2021-10-09] MEDS: FUROSEMIDE 40 MG TAB PO SCH (08:40)
[2021-10-09] MEDS: CHOLECALCIFEROL 25 MCG (1000 IU) TABLET PO SCH (08:41)
[2021-10-09] MEDS: SUCRALFATE 1 GM TAB PO SCH (08:41)
[2021-10-09] MEDS: metFORMIN 500 MG TAB PO SCH ×2 (08:41→11:52)
[2021-10-09] MEDS: SPIRONOLACTONE 25 MG TAB PO SCH (08:41)
[2021-10-09] MEDS: ATORVASTATIN 40 MG TAB PO SCH (08:41)
[2021-10-09] MEDS: KETOROLAC 0.5% OPHTH DROPS 5 ML BTL RIGHT EYE SCH (08:42)
[2021-10-09] MEDS ORDERED: predniSONE 10 MG TAB PO SCH (09:00)
[2021-10-09 09:27] VITALS: BP 131/70; RESP 17; TEMP 97.5
--- NOTE | 2021-10-09 10:05 | P.DS ---
Providers Date of admission: 09/29/21 10:22 Expected date of discharge: 10/09/21 Attending physician: Mateus Engel Consults: 09/29/21 10:25 Consult Physician Urgent Consulting Provider: Porsha Gibson Consult Reason/Comments: NIVDRF, acute COPD exacerbation Do you want consulting provider notified?: Yes Primary care physician: Mateus Engel [facility] Course: Final Diagnoses: Acute non-STEMI, nonischemic cardiomyopathy,Takotsubo syndrome, EF 20-25% Acute CHF exacerbation with systolic dysfunction Acute asthma exacerbation Acute bilateral pneumonia, suspicious for aspiration pneumonia. MBS reported no aspiration. Penetration as per MBS, direct supervision with with meals as mentioned above in note Acute hypoxic respiratory failure secondary to all the above A. fib with RVR, converted to sinus rhythm Diabetes mellitus II, uncontrolled, hyperglycemic Hypertension Hyperlipidemia Hypovolemic hyponatremia, resolved Obesity, BMI 29.8 Gastroesophageal reflux disease Obstructive Sleep apnea, with CPAP, BiPAP at home Anxiety Hospital course:This is a pleasant 76-year-old female admitted with acute hypoxic respiratory failure secondary to acute CHF exacerbation, acute asthma exacerbation as well as acute NSTEMI/Takotsubo syndrome, ejection fraction of 20-25% and multiple other medical issues. Diuresing well on oral Lasix with 24- hour I&O reflecting a negative fluid balance. Maintained O2 sats in the mid 90s on 2 L nasal cannula. Maintained on nebulized bronchodilators, IV steroids, bronchospastic-improving. Afebrile. Labs pending. Chest x-ray reporting prominent pulmonary vasculature, mild basilar infiltrates, atypical pulmonary edema with moderate volume overload, small left pleural effusion. Denies chest pain, palpitations. 10/03/21 yesterday afternoon developed atrial fibrillation with RVR, beta kelly dose increased, heparin drip initiated. Wheezy this morning with congested cough, telemetry currently controlled A. fib but reports that the night heart rate up into the 130s to 160s. Required BiPAP earlier this morning, O2 sats decreased to 91% on 4 L nasal cannula. Afebrile, labs pending. Denies chest pain, palpitations. 10/04/2021 chest x-ray yesterday reported bilateral pneumonia, reflective of possible aspiration pneumonia and Zosyn was initiated. Completed MBS reporting deep penetration, without aspiration. Speech therapy recommending patient remain on regular diet with thin liquids, with Direct Supervision with meals ,due to patient's impulsivity, sitting upright 90, no straw, liquids from cup, small bites and sips. Continues on nebulized bronchodilators, IV steroids, oral diuretics. Maintaining O2 sats in the high 90s on 4 L nasal cannula 10/05/2021 no overnight events .maintained on Zosyn, nebulized bronchodilators, IV steroids with O2 sats in the 90s on 3 L nasal cannula. Productive cough with green sputum, sputum culture ordered. Chest x-ray reporting improving left perihilar and left lower lobe infiltrates. Afebrile, WBC 17.5. Denies chest pain, palpitations. 10/08/2021 maintained on vancomycin and Zosyn. Sputum culture reporting presumptive staph aureus, Klebsiella pneumonia. Maintaining O2 sats in the 90s on room air. Afebrile. Chest x-ray of 10/07/2021 reporting left midlung infiltrate improvement. Converted to oral steroids, final sensitivities of sputum culture received. Maintaining O2 sats in the 90s on room air. Denies chest pain, palpitations or increased shortness of breath .significant clinical improvement. Cleared by cardiology for discharge. Patient will be discharged home with home care today in a stable condition with guarded prognosis pending final DC recommendations/clearance per pulmonary. The impression and plan of care has been dictated as directed. : I performed a history and examination of this patient, discussed the same with the dictator. I agree with the dictator's note ,documented as a scribe. Any additional findings or plans will be noted. Patient Condition at Discharge: Stable Plan - Discharge Summary Discharge Rx Participant: No New Discharge Prescriptions: New Apixaban [Eliquis] 5 mg PO BID #60 tab Spironolactone [Aldactone] 25 mg PO DAILY #30 tab Atorvastatin [Lipitor] 40 mg PO DAILY #30 tab lisinopriL [Zestril] 2.5 mg PO DAILY #30 tab Sulfamethoxazole/Trimethoprim [Bactrim DS 800-160 mg] 1 each PO BID 7 Days #14 tablet predniSONE 0 mg PO DIRECTED 12 Days #30 tab Amiodarone [Cordarone] 200 mg PO BID #180 tab Aspirin 81 mg PO DAILY tab Metoprolol Tartrate [Lopressor] 25 mg PO BID #60 tab Nitroglycerin Sl Tabs [Nitrostat] 0.4 mg SUBLINGUAL Q5M PRN #100 tab PRN Reason: Chest Pain Continue Ketorolac 0.5% Ophth Soln [Acular 0.5%] 1 drop RIGHT EYE QID Multivitamins, Thera [Multivitamin (formulary)] 1 tab PO DAILY traMADol HCL 50 mg PO BID PRN PRN Reason: Pain Omeprazole 20 mg PO DAILY Alendronate Sodium [Binosto] 70 mg PO YOUNG Discontinued lisinopriL [Zestril] 5 mg PO DAILY #30 tab Atorvastatin [Lipitor] 20 mg PO DAILY No Action metFORMIN HCL [Glucophage] 500 mg PO AC-TID Montelukast Sodium [Singulair] 10 mg PO DAILY ALPRAZolam [Xanax] 0.25 mg PO HS Meclizine [Antivert] 25 mg PO TID Cholecalciferol [Vitamin D3 (25 Mcg = 1000 Iu)] 50 mcg PO DAILY Furosemide [Lasix] 20 mg PO DAILY Albuterol Nebulized [Ventolin Nebulized] 2.5 mg INHALATION RT-QID PRN PRN Reason: Shortness Of Breath Salmeterol Xinafoate [Serevent Diskus] 1 puff INHALATION RT-BID Sucralfate [Carafate] 1 gm PO TID Hydrocortisone [Cortef] 20 mg PO DAILY Hydrocortisone 10 mg PO HS Latanoprost Ophth [Xalatan 0.005%] 1 drops RIGHT EYE HS Discharge Medication List ALPRAZolam [Xanax] 0.25 mg PO HS 12/14/14 [History] Cholecalciferol [Vitamin D3 (25 Mcg = 1000 Iu)] 50 mcg PO DAILY 12/14/14 [History] Furosemide [Lasix] 20 mg PO DAILY 12/14/14 [History] Meclizine [Antivert] 25 mg PO TID 12/14/14 [History] Montelukast Sodium [Singulair] 10 mg PO DAILY 12/14/14 [History] metFORMIN HCL [Glucophage] 500 mg PO AC-TID 12/14/14 [History] Albuterol Nebulized [Ventolin Nebulized] 2.5 mg INHALATION RT-QID PRN 06/18/16 [History] Salmeterol Xinafoate [Serevent Diskus] 1 puff INHALATION RT-BID 06/18/16 [History] Sucralfate [Carafate] 1 gm PO TID 05/19/19 [History] Hydrocortisone 10 mg PO HS 07/12/20 [History] Hydrocortisone [Cortef] 20 mg PO DAILY 07/12/20 [History] Latanoprost Ophth [Xalatan 0.005%] 1 drops RIGHT EYE HS 07/12/20 [History] Alendronate Sodium [Binosto] 70 mg PO YOUNG 09/29/21 [History] Ketorolac 0.5% Ophth Soln [Acular 0.5%] 1 drop RIGHT EYE QID 09/29/21 [History] Multivitamins, Thera [Multivitamin (formulary)] 1 tab PO DAILY 09/29/21 [History] Omeprazole 20 mg PO DAILY 09/29/21 [History] traMADol HCL 50 mg PO BID PRN 09/29/21 [History] Apixaban [Eliquis] 5 mg PO BID #60 tab 10/03/21 [Rx] Sulfamethoxazole/Trimethoprim [Bactrim DS 800-160 mg] 1 each PO BID 7 Days #14 tablet 10/08/21 [Rx] predniSONE 0 mg PO DIRECTED 12 Days #30 tab 10/08/21 [Rx] Amiodarone [Cordarone] 200 mg PO BID #180 tab 10/09/21 [Rx] Aspirin 81 mg PO DAILY tab 10/09/21 [Rx] Atorvastatin [Lipitor] 40 mg PO DAILY #30 tab 10/09/21 [Rx] Metoprolol Tartrate [Lopressor] 25 mg PO BID #60 tab 10/09/21 [Rx] Nitroglycerin Sl Tabs [Nitrostat] 0.4 mg SUBLINGUAL Q5M PRN #100 tab 10/09/21 [Rx] Spironolactone [Aldactone] 25 mg PO DAILY #30 tab 10/09/21 [Rx] lisinopriL [Zestril] 2.5 mg PO DAILY #30 tab 10/09/21 [Rx] Follow up Appointment(s)/Referral(s): [facility], [NON-STAFF] - Mateus Engel DO [Primary Care Provider] - 3 Days Johny Ramirez DO [Doctor of Osteopathic Medicine] - 1 Week Activity/Diet/Wound Care/Special Instructions: Amiodarone taper as per cardiology Discharge Disposition: HOME WITH HOME HEALTH SERVICES
[2021-10-09 10:54] VITALS: PULSE 80
--- NOTE | 2021-10-09 11:23 | P.PN ---
Subjective Progress Note Date: 10/09/21 Principal diagnosis: Dyspnea On 10/01/2021 patient seen in follow-up on selective care unit, she sits up in the chair, she is currently off BiPAP, and on 4 L of oxygen, pulse ox is 97%, she did wear BiPAP last night with pressures of 12/6 and FiO2 of 60%. Overall she is breathing better today, still has diffuse rhonchi and rales throughout the lung meredith, she is currently on oral Lasix, she is in -970 mL net fluid balance over the last 24 hours, she has been transitioned to oral Lasix 40 mg by mouth twice daily, she remains on IV Solu-Medrol 40 mg every 8 hours, and neb ulized bronchodilators. She denies any chest pain. Her echocardiogram showed borderline concentric LVH, and severely impaired LV function with EF of 20-25%. Today's labs have been reviewed, electrolytes are within normal limits, BUN is 32 creatinine 0.69. On 10/02/2021 patient seen in follow-up. Patient is breathing more comfortably, she is currently on 2 L of oxygen with a pulse ox of 94-96%, she has been afebrile, denied any chest pain, no cough, no phlegm production, minimal wheezing. Today's chest x-ray shows mild bibasilar infiltrates, most likely related to atypical pulmonary edema, moderate volume overload. And small pleural effusion is present, overall findings are improved compared most recent chest x-ray from 09/30/2021. Patient is currently on oral Lasix 40 mg twice daily. She is in -940 mL net fluid balance. No lower extremity edema. Today's labs have been reviewed, sodium is 139, potassium 3.4, chloride is 106, BUN is 28, creatinine is 0.5. Patient is on nebulized bronchodilators, and IV Solu- Medrol 40 mg every 8 hours. Echocardiogram has been completed showing severely impaired left ventricle systolic function with EF of 20-25%, mild aortic valve sclerosis and regurgitation, mild TR. Patient is on Lopressor 25 mg twice daily, she is on oral Lasix, Aldactone, Lipitor 40 mg daily, aspirin and Plavix, cardiology is following. On 10/03/2021 patient seen in follow-up. Patient has been noted to be intermittently more dyspneic, and wheezing, and no she is suspected to be intermittently aspirating on food. Swallow evaluation will be obtained, lung sounds are positive for diffuse wheezes, patient is still dyspneic, she is currently on 4 L of oxygen pulse ox is 97%, she is afebrile, today's labs have been reviewed, her white blood cell count has increased to 15.6, hemoglobin is 13.7, sodium is 133, the rest of electrolytes are within normal limits, and her BUN was 38, and creatinine 0.62. Patient did have a couple episodes of increased shortness of breath, wheezing, and pulmonary congestion, fluid overload with suspected, she did receive the next dose of IV Lasix. She is on maintenance dose oral Lasix right now, 40 mg twice a day. She is in negative fluid balance. She has converted to sinus mechanism, rate is controlled, she remains on amiodarone infusion at 0.5 mg per hour, and heparin infusion, cardiology is following, and is planning on transitioning the patient to oral amiodarone and possibly oral anticoagulation. No hemoptysis, patient is not bringing up any phlegm, no chest pain. On today's evaluation on 10/04/2021 patient seen in follow-up on selective care unit. She is awake and alert, in no acute distress, sounds less congested today, however still wheezy, in has diffuse rhonchi and rales. Estrace chest x- ray showed bilateral pneumonia, and aspiration pneumonia was strongly suspected. Patient had a swallow evaluation, she had a modified barium swallow, which showed deep penetration with coating of focal folds within liquids, mild residuals, no aspiration. Patient was started on Zosyn. She remains on IV s teroids and breathing treatments. Patient also remains on oral Lasix 40 mg twice daily. Overall she states she is feeling better, and breathing easier today. Remains on 4 L of oxygen. Pulse ox of 98%. On today's evaluation on 10/05/2021 patient seen in follow-up on selective care unit, she states her breathing is improving, still coughing, but is now starting to bring up some greenish colored phlegm, remains on Zosyn, nebulized bronchodilators and steroids, today's chest x-ray showing improvement in appearance of left perihilar and left lower lobe infiltrates. Denies any chest discomfort, no hemoptysis, vitals been stable overnight On today's evaluation on 10/06/2021 patient seen in follow-up on [facility]] care unit, she is currently on 2 L of oxygen, with a pulse ox of 94%, she's been afebrile, hemodynamically she is stable, she still has coughing spells, not producing a significant amount of phlegm, no hemoptysis no chest discomfort, she sounds better on physical exam today, no crackles, no wheezes, diminished breath sounds bilaterally, today's labs show improving white blood cell count, patient is on Zosyn for empiric antibiotic coverage for what was felt to be aspiration related pneumonia although patient did pass her modified barium swallow. She is on oral Lasix 40 mg twice daily, clinically she is improving, she is up in the chair, she is tolerating oral intake, no nausea or vomiting, she does require supervision with her meals as she tends to eat very fast. Otherwise no acute events overnight, On 10/07/2021 patient seen in follow-up on [facility]] care unit, she is currently on room air, her pulse ox is 95%, she is doing much better, less dyspneic, less bronchospastic, today's follow-up chest x-ray has been reviewed showing improvement in the appearance of bibasilar infiltrates. Patient remains on empiric antibiotic coverage in the form of Zosyn, she is on nebulized bronchodilators, she is on oral Lasix. Today's labs have been reviewed, blood cell count has increased, but patient has been on IV steroids as well. No fever or chills. No acute events overnight, renal profile is stable, follow-up stone will be sent. Sputum culture showed presumptive staph aureus, and Klebsiella pneumonia On October 09, 2021 patient seen in follow-up on [facility]] care unit. She is awake and alert, in no acute distress, her pulse ox is 94%, she said no acute events overnight, her sputum culture was positive for Klebsiella pneumonia and MRSA. Patient has been treated with a combination of Zosyn and vancomycin, clinically she has been improving, she is off supplemental oxygen, she is breathing easily, lung sounds are clear to auscultation. Yesterday's chest x- ray was showing improvement in the left mid lung infiltrate. No new abnormalities. Discharge is pending for today and patient will be going home with her sister to complete 7 day course of Bactrim DS, she'll complete prednisone taper, and she'll be seen in the office for outpatient follow-up Objective - Vital Signs Vital signs: Vital Signs Temp 97.5 F L 10/09/21 08:00 Pulse 80 10/09/21 10:54 Resp 17 10/09/21 08:00 BP 131/70 10/09/21 08:00 Pulse Ox 94 L 10/09/21 08:00 Intake & Output 10/08/21 10/09/21 10/09/21 18:59 06:59 18:59 Intake Total 240 240 Balance 240 240 Weight 59.9 kg Intake: Oral 240 240 Other: Voiding Method Toilet Toilet Toilet # Voids 1 2 1 - Exam GENERAL EXAM: Alert, very pleasant, 76-year-old white female, on room air with pulse ox 95% comfortable in no apparent distress. HEAD: Normocephalic/atraumatic. EYES: Normal reaction of pupils, equal size. Conjunctiva pink, sclera white. NOSE: Clear with pink turbinates. THROAT: No erythema or exudates. NECK: No masses, no JVD, no thyroid enlargement, no adenopathy. CHEST: No chest wall deformity. Symmetrical expansion. LUNGS: Equal air entry with diffuse wheezes and rhonchi CVS: Regular rate and rhythm, normal S1 and S2, no gallops, no murmurs, no rubs ABDOMEN: Soft, nontender. No hepatosplenomegaly, normal bowel sounds, no guarding or rigidity. EXTREMITIES: No clubbing, no edema, no cyanosis, 2+ pulses and upper and lower extremities. MUSCULOSKELETAL: Muscle strength and tone normal. SPINE: No scoliosis or deformity SKIN: No rashes CENTRAL NERVOUS SYSTEM: Alert and oriented -3. No focal deficits, tone is normal in all 4 extremities. PSYCHIATRIC: Alert and oriented -3. Appropriate affect. Intact judgment and insight. - Labs CBC & Chem 7: 10/08/21 05:40 10/08/21 05:40 Labs: Abnormal Lab Results - Last 24 Hours (Table) 10/08/21 10/08/21 10/08/21 Range/Units 11:25 16:21 20:06 POC Glucose (mg/dL) 203 H 147 H 145 H (75-99) mg/dL 10/09/21 Range/Units 07:04 POC Glucose (mg/dL) 105 H (75-99) mg/dL Microbiology - Last 24 Hours (Table) 10/05/21 19:11 Gram Stain - Final Sputum Sputum Culture - Final Methicillin resist S. aureus Klebsiella pneumoniae Assessment and Plan Plan: Assessment: #1. Acute hypoxic respiratory failure, multifactorial, secondary to acute exacerbation of CHF with systolic dysfunction, non-ST elevated myocardial infa rction and acute exacerbation of mild intermittent bronchial asthma. On today's chest x-ray on 10/03/2021, patient has new bilateral infiltrates, with a suspicion of aspiration related pneumonia. patient had modified barium swallow which showed deep penetration but no aspiration. Remains on regular diet with thin liquids #2. Healthcare acquired pneumonia, sputum culture showed Klebsiella pneumonia and MRSA. Currently on Zosyn and vancomycin #3. Hyponatremia, hypervolemic, improved #4. 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 Hypertension #6. Diabetes type 2 #7. History of obstructive sleep apnea #8. Acute A. fib with RVR, on amiodarone and heparin infusion, has converted back to sinus rhythm Plan: Clinically patient has remained stable in last 24 hours She is on room air Vital signs have been stable, no fever or chills Final sputum culture showed Klebsiella pneumonia and MRSA Patient has been treated with Zosyn and vancomycin, she'll be discharged home on Bactrim DS for 7 days She will complete her prednisone taper She will be seen in the outpatient setting with Dr. Ramirez in the office in 7-10 days I performed a history & physical examination of the patient and discussed their management with my nurse practitioner, Roz Jacobo. I reviewed the nurse practitioner's note and agree with the documented findings and plan of care. Lung sounds are positive for diffuse crackles throughout the lung meredith. The findings and the impression was discussed with the patient. I attest to the documentation by the nurse practitioner. Time with Patient: Less than 30
[2021-10-09 12:08] LABS: Glucose,Whole Blood 227 mg/dL (75-99)
[2021-10-09] MEDS ORDERED: AMIODARONE 200 MG TAB PO SCH (21:00)
== END 2021-10-09 12:25 | disposition home health service (06) | DRG 280 ==
LOC: EC 07:50 → 3SCARD 10:22
PROVIDERS: ADMIT Family Medicine; ATTEND Family Medicine
PROC: 5A09457 Assistance with Respiratory Ventilation, 24-96 Consecutive Hours, Continuous Positive Airway Pressure (ICD-10-PCS; 2021-09-29)
PROC: B2111ZZ Fluoroscopy of Multiple Coronary Arteries using Low Osmolar Contrast (ICD-10-PCS; 2021-09-30)
PROC: B2151ZZ Fluoroscopy of Left Heart using Low Osmolar Contrast (ICD-10-PCS; 2021-09-30)
PROC: 4A023N7 Measurement of Cardiac Sampling and Pressure, Left Heart, Percutaneous Approach (ICD-10-PCS; principal; 2021-09-30 11:21)
DX: I21.4 Non-ST elevation (NSTEMI) myocardial infarction (principal); J15.0 Pneumonia due to Klebsiella pneumoniae; J96.01 Acute respiratory failure with hypoxia; J69.0 Pneumonitis due to inhalation of food and vomit; I50.23 Acute on chronic systolic (congestive) heart failure; E87.1 Hypo-osmolality and hyponatremia; I42.8 Other cardiomyopathies; J44.0 Chronic obstructive pulmonary disease with (acute) lower respiratory infection; J44.1 Chronic obstructive pulmonary disease with (acute) exacerbation; J45.21 Mild intermittent asthma with (acute) exacerbation; E11.65 Type 2 diabetes mellitus with hyperglycemia; E66.9 Obesity, unspecified; Z68.27 Body mass index [BMI] 27.0-27.9, adult; E78.5 Hyperlipidemia, unspecified; E83.42 Hypomagnesemia; E86.1 Hypovolemia; F41.9 Anxiety disorder, unspecified; G47.33 Obstructive sleep apnea (adult) (pediatric); I11.0 Hypertensive heart disease with heart failure; I35.8 Other nonrheumatic aortic valve disorders; I48.0 Paroxysmal atrial fibrillation; K21.9 Gastro-esophageal reflux disease without esophagitis; Y95 Nosocomial condition; Z20.822 Contact with and (suspected) exposure to COVID-19; M10.9 Gout, unspecified; Z79.01 Long term (current) use of anticoagulants; Z79.1 Long term (current) use of non-steroidal anti-inflammatories (NSAID); Z79.52 Long term (current) use of systemic steroids; Z79.82 Long term (current) use of aspirin; Z79.84 Long term (current) use of oral hypoglycemic drugs; Z79.899 Other long term (current) drug therapy; Z90.710 Acquired absence of both cervix and uterus; Z96.653 Presence of artificial knee joint, bilateral
CPT/HCPCS: 36415; 70450; 71045; 71046; 74230; 80048; 80053; 83605; 83735; 83880; 84132; 84145; 84484; 85025; 85610; 85730; 87070; 87077; 87186; 87205; 87636; 93005; 93306; 93458; 94640; 94660; 94760; 96365; 96366; 96367; 96372; 96375; 99285

== ENCOUNTER 2021-12-02 19:44 | Inpatient (IN) | payer MEDICARE, OTHER ==
--- NOTE | 2021-12-02 20:04 | ED ---
General Adult HPI - General Stated complaint: SOB Time Seen by Provider: 12/02/21 19:59 - History of Present Illness Initial comments: Keely Ramirez 76-year-old female who presents to the emergency department today via ambulance for evaluation of shortness of breath and cough. EMS was called for shortness of breath, patient had oxygen saturation 96% but was diaphoretic and had increased work of breathing upon their arrival. She was treated with updraft in route to the hospital in improved to 100% and work of breathing decreased. Patient denies any history of COPD, does not wear oxygen at home. Received 2 vaccines for COVID-19 but has not had a booster. Patient reports she's not had any fevers at home. - Related Data Home Medications Medication Instructions Recorded Confirmed ALPRAZolam [Xanax] 0.25 mg PO HS 12/14/14 12/02/21 Cholecalciferol [Vitamin D3 (25 50 mcg PO DAILY 12/14/14 12/02/21 Mcg = 1000 Iu)] Furosemide [Lasix] 20 mg PO DAILY 12/14/14 12/02/21 Meclizine [Antivert] 25 mg PO TID 12/14/14 12/02/21 Montelukast Sodium [Singulair] 10 mg PO DAILY 12/14/14 12/02/21 metFORMIN HCL [Glucophage] 500 mg PO AC-TID 12/14/14 12/02/21 Albuterol Nebulized [Ventolin 2.5 mg INHALATION RT-QID PRN 06/18/16 12/02/21 Nebulized] Salmeterol Xinafoate [Serevent 1 puff INHALATION RT-BID 06/18/16 12/02/21 Diskus] Sucralfate [Carafate] 1 gm PO TID 05/19/19 12/02/21 Hydrocortisone 10 mg PO HS 07/12/20 12/02/21 Hydrocortisone [Cortef] 20 mg PO DAILY 07/12/20 12/02/21 Latanoprost Ophth [Xalatan 0.005%] 1 drops RIGHT EYE HS 07/12/20 12/02/21 Alendronate Sodium [Binosto] 70 mg PO YOUNG 09/29/21 12/02/21 Ketorolac 0.5% Ophth Soln [Acular 1 drop RIGHT EYE QID 09/29/21 12/02/21 0.5%] Multivitamins, Thera [Multivitamin 1 tab PO DAILY 09/29/21 12/02/21 (formulary)] traMADol HCL 50 mg PO BID PRN 09/29/21 12/02/21 Amiodarone [Cordarone] 200 mg PO DAILY 12/02/21 12/02/21 Atorvastatin [Lipitor] 20 mg PO DAILY 12/02/21 12/02/21 Omeprazole 40 mg PO DAILY 12/02/21 12/02/21 lisinopriL [Zestril] 5 mg PO DAILY 12/02/21 12/02/21 Previous Rx's Medication Instructions Recorded Apixaban [Eliquis] 5 mg PO BID #60 tab 10/03/21 Aspirin 81 mg PO DAILY tab 10/09/21 Metoprolol Tartrate [Lopressor] 25 mg PO BID #60 tab 10/09/21 Nitroglycerin Sl Tabs [Nitrostat] 0.4 mg SUBLINGUAL Q5M PRN #100 tab 10/09/21 Spironolactone [Aldactone] 25 mg PO DAILY #30 tab 10/09/21 Allergies Allergy/AdvReac Type Severity Reaction Status Date / Time latex Allergy Rash/Hives Verified 12/02/21 21:17 sulfamethoxazole Allergy Unknown Verified 12/02/21 21:17 [From Bactrim] trimethoprim [From Bactrim] Allergy Unknown Verified 12/02/21 21:17 Review of Systems ROS Statement: Those systems with pertinent positive or pertinent negative responses have been documented in the HPI. ROS Other: All systems not noted in ROS Statement are negative. Past Medical History Past Medical History: Asthma, Diabetes Mellitus, Eye Disorder, GERD/Reflux, Hyperlipidemia, Hypertension, Sleep Apnea/CPAP/BIPAP Additional Past Medical History / Comment(s): NIDDM, vertigo, developmentally delayed, having sharp abd. pain recently, glaucoma, not sure why patient takes steroids-states has been taking for a while History of Any Multi-Drug Resistant Organisms: MRSA Date of last positivie culture/infection: 10/05/21 MDRO Source:: MRSA SPUTUM Past Surgical History: Appendectomy, Hysterectomy, Joint Replacement Additional Past Surgical History / Comment(s): bilateral knee replacement, right rotator cuff surgery, bilateral carpal tunnel, tumor removed right thigh, foot surg. Past Anesthesia/Blood Transfusion Reactions: No Reported Reaction Additional Past Anesthesia/Blood Transfusion Reaction / Comment(s): Pt "alittle slow to wake up." Pt has never recieved blood. Past Psychological History: Anxiety Smoking Status: Never smoker Past Alcohol Use History: None Reported Past Drug Use History: None Reported - Past Family History Sister(s) Family Medical History: Cancer Additional Family Medical History / Comment(s): colon, lung, stomach General Exam - General Exam Comments Initial Comments: Physical Exam GENERAL: Elderly, chronicaly ill appearing HENT: Normocephalic, Atraumatic. EYES: PERRL, EOMI PULMONARY: Crackles in bilateral lower long meredith Non-productive cough CARDIOVASCULAR: RRR ABDOMEN: Soft and nontender with normal bowel sounds. SKIN: Skin is clear with no lesions or rashes and otherwise unremarkable. : Deferred NEUROLOGIC: Patient is alert and oriented x3 but poor historian MUSCULOSKELETAL: Normal extremities with adequate strength and full range of motion. No lower extremity swelling or edema. No calf tenderness. PSYCHIATRIC: Normal psychiatric evaluation. Course Vital Signs 12/02/21 12/02/21 12/02/21 19:58 21:20 22:59 Temperature 99.0 F Pulse Rate 78 72 75 Respiratory 18 18 18 Rate Blood Pressure 138/64 132/72 126/76 O2 Sat by Pulse 98 96 96 Oximetry 12/02/21 23:00 Temperature 98.2 F Pulse Rate 78 Respiratory 22 Rate Blood Pressure 164/67 O2 Sat by Pulse 94 L Oximetry Medical Decision Making - Medical Decision Making Patient was seen and evaluated upon arrival to the emergency Department, 76-year-old with history of asthma and CHF presenting with shortness of breath, hypoxia improved after breathing treatments Patient with she's mildly fluid overloaded, labs resulted with a critical low potassium likely related to recurrent albuterol use, lactic was also elevated also likely related to albuterol next thing chest x-ray consistent with CHF Given the patient's complex medical history need for supplemental oxygen in the setting of CHF and COPD exacerbation walk over negative she will be admitted to the hospital this plan was discussed with general resume who accepts the admission with consults to pulmonology and cardiology. - Lab Data Result diagrams: 12/02/21 20:48 12/02/21 20:48 Lab Results 12/02/21 12/02/21 12/02/21 Range/Units 20:08 20:48 20:48 WBC 13.4 H (3.8-10.6) k/uL RBC 3.10 L (3.80-5.40) m/uL Hgb 9.5 L D (11.4-16.0) gm/dL Hct 29.5 L (34.0-46.0) % MCV 95.3 (80.0-100.0) fL MCH 30.8 (25.0-35.0) pg MCHC 32.3 (31.0-37.0) g/dL RDW 16.2 H (11.5-15.5) % Plt Count 269 (150-450) k/uL MPV 7.6 Neutrophils % 86 % Lymphocytes % 8 % Monocytes % 4 % Eosinophils % 0 % Basophils % 0 % Neutrophils # 11.6 H (1.3-7.7) k/uL Lymphocytes # 1.1 (1.0-4.8) k/uL Monocytes # 0.6 (0-1.0) k/uL Eosinophils # 0.0 (0-0.7) k/uL Basophils # 0.0 (0-0.2) k/uL Anisocytosis Slight PT 11.1 (9.0-12.0) sec INR 1.0 (<1.2) APTT 27.6 (22.0-30.0) sec Sodium (137-145) mmol/L Potassium (3.5-5.1) mmol/L Chloride (98-107) mmol/L Carbon Dioxide (22-30) mmol/L Anion Gap mmol/L BUN (7-17) mg/dL Creatinine (0.52-1.04) mg/dL Est GFR (CKD-EPI)AfAm (>60 ml/min/1.73 sqM) Est GFR (CKD-EPI)NonAf (>60 ml/min/1.73 sqM) Glucose (74-99) mg/dL Lactic Ac Sepsis Rflx Plasma Lactic Acid Jose De Jesus (0.7-2.0) mmol/L Calcium (8.4-10.2) mg/dL Magnesium (1.6-2.3) mg/dL Total Bilirubin (0.2-1.3) mg/dL AST (14-36) U/L ALT (4-34) U/L Alkaline Phosphatase (38-126) U/L Troponin I (0.000-0.034) ng/mL C-Reactive Protein (<1.0) mg/dL Total Protein (6.3-8.2) g/dL Albumin (3.5-5.0) g/dL Coronavirus (PCR) Not Detected (Not Detectd) 12/02/21 12/02/21 12/02/21 Range/Units 20:48 20:48 20:48 WBC (3.8-10.6) k/uL RBC (3.80-5.40) m/uL Hgb (11.4-16.0) gm/dL Hct (34.0-46.0) % MCV (80.0-100.0) fL MCH (25.0-35.0) pg MCHC (31.0-37.0) g/dL RDW (11.5-15.5) % Plt Count (150-450) k/uL MPV Neutrophils % % Lymphocytes % % Monocytes % % Eosinophils % % Basophils % % Neutrophils # (1.3-7.7) k/uL Lymphocytes # (1.0-4.8) k/uL Monocytes # (0-1.0) k/uL Eosinophils # (0-0.7) k/uL Basophils # (0-0.2) k/uL Anisocytosis PT (9.0-12.0) sec INR (<1.2) APTT (22.0-30.0) sec Sodium 135 L (137-145) mmol/L Potassium 2.4 L* (3.5-5.1) mmol/L Chloride 101 (98-107) mmol/L Carbon Dioxide 25 (22-30) mmol/L Anion Gap 9 mmol/L BUN 11 (7-17) mg/dL Creatinine 0.53 (0.52-1.04) mg/dL Est GFR (CKD-EPI)AfAm >90 (>60 ml/min/1.73 sqM) Est GFR (CKD-EPI)NonAf >90 (>60 ml/min/1.73 sqM) Glucose 176 H (74-99) mg/dL Lactic Ac Sepsis Rflx Plasma Lactic Acid Jose De Jesus 2.7 H* (0.7-2.0) mmol/L Calcium 7.9 L (8.4-10.2) mg/dL Magnesium 1.2 L (1.6-2.3) mg/dL Total Bilirubin 0.7 (0.2-1.3) mg/dL AST 39 H (14-36) U/L ALT 35 H (4-34) U/L Alkaline Phosphatase 60 (38-126) U/L Troponin I 0.015 (0.000-0.034) ng/mL C-Reactive Protein 17.4 H (<1.0) mg/dL Total Protein 5.2 L (6.3-8.2) g/dL Albumin 2.9 L (3.5-5.0) g/dL Coronavirus (PCR) (Not Detectd) 12/02/21 Range/Units 21:24 WBC (3.8-10.6) k/uL RBC (3.80-5.40) m/uL Hgb (11.4-16.0) gm/dL Hct (34.0-46.0) % MCV (80.0-100.0) fL MCH (25.0-35.0) pg MCHC (31.0-37.0) g/dL RDW (11.5-15.5) % Plt Count (150-450) k/uL MPV Neutrophils % % Lymphocytes % % Monocytes % % Eosinophils % % Basophils % % Neutrophils # (1.3-7.7) k/uL Lymphocytes # (1.0-4.8) k/uL Monocytes # (0-1.0) k/uL Eosinophils # (0-0.7) k/uL Basophils # (0-0.2) k/uL Anisocytosis PT (9.0-12.0) sec INR (<1.2) APTT (22.0-30.0) sec Sodium (137-145) mmol/L Potassium (3.5-5.1) mmol/L Chloride (98-107) mmol/L Carbon Dioxide (22-30) mmol/L Anion Gap mmol/L BUN (7-17) mg/dL Creatinine (0.52-1.04) mg/dL Est GFR (CKD-EPI)AfAm (>60 ml/min/1.73 sqM) Est GFR (CKD-EPI)NonAf (>60 ml/min/1.73 sqM) Glucose (74-99) mg/dL Lactic Ac Sepsis Rflx Y Plasma Lactic Acid Jose De Jesus (0.7-2.0) mmol/L Calcium (8.4-10.2) mg/dL Magnesium (1.6-2.3) mg/dL Total Bilirubin (0.2-1.3) mg/dL AST (14-36) U/L ALT (4-34) U/L Alkaline Phosphatase (38-126) U/L Troponin I (0.000-0.034) ng/mL C-Reactive Protein (<1.0) mg/dL Total Protein (6.3-8.2) g/dL Albumin (3.5-5.0) g/dL Coronavirus (PCR) (Not Detectd) - EKG Data -: EKG Interpreted by Me EKG Comments: EKG was obtained due to shortness of breath, EKG was obtained at 2028 rate is 80 rhythm is sinus, there is normal axis, normal intervals, SC 128, QRS 94 QTC mildly prolonged at 512 there are no acute ST elevations or depressions no evidence of acute ischemia or infarction. Disposition Clinical Impression: Asthma, Hypokalemia, CHF (congestive heart failure), Acute pulmonary edema Disposition: ADMITTED IP TO THIS HOSP Condition: Serious Referrals: Mateus Engel DO [Primary Care Provider] - 1-2 days
--- NOTE | 2021-12-02 21:01 | XR ---
EXAMINATION TYPE: XR chest 2V DATE OF EXAM: 12/02/2021 COMPARISON: 10/07/2021 HISTORY: Short of breath TECHNIQUE: 2 views FINDINGS: Heart is enlarged. There is pulmonary interstitial and airspace edema. There is blunting of the costophrenic angles. Bony thorax is intact. IMPRESSION: There is pulmonary edema and pleural fluid that is increased compared to old exam and con sistent with congestive heart failure. Bilateral pneumonia also likely. 2 views
[2021-12-02 21:10] LABS: Partial Thromboplastin Time 27.6 sec (22.0-30.0); Prothrombin Time 11.1 sec (9.0-12.0)
[2021-12-02 21:18] LABS: ALT 35 U/L (4-34); AST 39 U/L (14-36); African American GFR (CKD) >90 (>60 ml/min/1.73 sqM); Albumin 2.9 g/dL (3.5-5.0); Alkaline Phosphatase 60 U/L (38-126); Anion Gap 9 mmol/L; Blood Urea Nitrogen 11 mg/dL (7-17); Calcium 7.9 mg/dL (8.4-10.2); Carbon Dioxide 25 mmol/L (22-30); Chloride 101 mmol/L (98-107); Glucose 176 mg/dL (74-99); Magnesium 1.2 mg/dL (1.6-2.3); Non-African American GFR(CKD) >90 (>60 ml/min/1.73 sqM); Sodium 135 mmol/L (137-145); Total Bilirubin 0.7 mg/dL (0.2-1.3); Total Protein 5.2 g/dL (6.3-8.2)
[2021-12-02 21:26] LABS: Anisocytosis Slight; Basophils % (A) 0 %; Eosinophils % (A) 0 %; HCT 29.5 % (34.0-46.0); Lymphocytes # (A) 1.1 k/uL (1.0-4.8); Lymphocytes % (A) 8 %; MCH 30.8 pg (25.0-35.0); MCHC 32.3 g/dL (31.0-37.0); MCV 95.3 fL (80.0-100.0); Mean Platelet Volume 7.6; Monocytes # (A) 0.6 k/uL (0-1.0); Monocytes % (A) 4 %; Neutrophils # (A) 11.6 k/uL (1.3-7.7); Neutrophils % (A) 86 %; Platelet Count 269 k/uL (150-450); RDW 16.2 % (11.5-15.5); WBC 13.4 k/uL (3.8-10.6)
[2021-12-02 21:29] LABS: HGB 9.5 gm/dL (11.4-16.0)
[2021-12-02 21:30] LABS: C Reactive Protein 17.4 mg/dL (<1.0)
[2021-12-02 21:35] LABS: Potassium 2.4 mmol/L (3.5-5.1)
[2021-12-02] MEDS ORDERED: Potassium Replacement Protocol 1 EACH MISC MISCELLANE PRN (22:16)
[2021-12-02] MEDS ORDERED: traMADol 50 MG TAB PO PRN (22:17)
[2021-12-02] MEDS ORDERED: HYDROCORTISONE 10 MG TAB PO SCH (22:30)
[2021-12-02] MEDS ORDERED: SODIUM CHLORIDE 0.9% 1,000 ML IV SCH (22:30)
[2021-12-02] MEDS ORDERED: ALPRAZolam 0.25 MG TAB PO SCH (22:30)
[2021-12-02] MEDS ORDERED: FUROSEMIDE 20 MG TAB PO SCH (22:30)
[2021-12-02] MEDS: POTASSIUM CHLORIDE ER 20 MEQ TAB.ER PO SCH (22:55)
[2021-12-02] MEDS: APIXABAN 5 MG TAB PO SCH (22:56)
[2021-12-02] MEDS: POTASSIUM CHLORIDE 10 MEQ in WATER FOR INJECTION 1 100ML.BAG IVPB SCH (23:21)
[2021-12-03] MEDS: POTASSIUM CHLORIDE ER 20 MEQ TAB.ER PO SCH ×2 (00:09→01:05)
[2021-12-03] MEDS: POTASSIUM CHLORIDE 10 MEQ in WATER FOR INJECTION 1 100ML.BAG IVPB SCH ×5 (00:11→04:56)
[2021-12-03] MEDS: ALBUTEROL NEBULIZED 2.5 MG/3 ML INHALATION SCH ×4 (07:10→18:51)
[2021-12-03 07:31] LABS: Anisocytosis Slight; Basophils % (A) 0 %; Eosinophils % (A) 0 %; HCT 33.6 % (34.0-46.0); HGB 10.9 gm/dL (11.4-16.0); Hypochromasia Slight; Lymphocytes # (A) 1.8 k/uL (1.0-4.8); Lymphocytes % (A) 10 %; MCH 31.2 pg (25.0-35.0); MCHC 32.4 g/dL (31.0-37.0); MCV 96.4 fL (80.0-100.0); Macrocytosis Slight; Mean Platelet Volume 7.6; Monocytes # (A) 0.7 k/uL (0-1.0); Monocytes % (A) 4 %; Neutrophils # (A) 15.2 k/uL (1.3-7.7); Neutrophils % (A) 84 %; Platelet Count 387 k/uL (150-450); RBC 3.49 m/uL (3.80-5.40); RDW 16.6 % (11.5-15.5); WBC 18.1 k/uL (3.8-10.6)
[2021-12-03 07:34] LABS: ALT 37 U/L (4-34); AST 28 U/L (14-36); African American GFR (CKD) >90 (>60 ml/min/1.73 sqM); Albumin 3.2 g/dL (3.5-5.0); Alkaline Phosphatase 70 U/L (38-126); Anion Gap 5 mmol/L; Blood Urea Nitrogen 8 mg/dL (7-17); Calcium 8.1 mg/dL (8.4-10.2); Carbon Dioxide 28 mmol/L (22-30); Chloride 103 mmol/L (98-107); Glucose 166 mg/dL (74-99); Magnesium 1.4 mg/dL (1.6-2.3); Non-African American GFR(CKD) >90 (>60 ml/min/1.73 sqM); Potassium 3.9 mmol/L (3.5-5.1); Sodium 136 mmol/L (137-145); Total Bilirubin 0.6 mg/dL (0.2-1.3); Total Protein 5.8 g/dL (6.3-8.2)
[2021-12-03] MEDS ORDERED: FUROSEMIDE 10 MG/ML 4 ML VIAL IV STA (07:44)
[2021-12-03 07:46] LABS: Glucose,Whole Blood 243 mg/dL (75-99)
[2021-12-03] MEDS ORDERED: ENALAPRILAT 1.25 MG/ML 1 ML VIAL IVP STA (07:46)
[2021-12-03] MEDS ORDERED: NITROGLYCERIN OINT 1 INCH/GM PACKET TOPICAL STA (07:49)
[2021-12-03] MEDS ORDERED: Salmeterol 50 mcg INHALER INHALATION SCH (08:00)
--- NOTE | 2021-12-03 08:05 | XR ---
EXAMINATION TYPE: XR chest 1V portable DATE OF EXAM: 12/03/2021 CLINICAL HISTORY: Difficulty breathing progress study. TECHNIQUE: Single AP portable upright view of the chest is obtained. COMPARISON: Chest x-ray from one day earlier and older studies FINDINGS: Worsening bilateral multifocal and confluent opacities. Suspect stable small bilateral ple ural effusions. Stable mild cardiomegaly. Multilevel spurring in the thoracolumbar spine redemonstrat ed. IMPRESSION: Worsening bilateral multifocal and confluent opacities consistent with covid-19 infection progression.
[2021-12-03 08:15] LABS: ABG Base Excess -3.1 mmol/L; ABG HCO3 24 mmol/L (21-25); ABG Oxygen Saturation 99.5 % (94-97); ABG PCO2 58 mmHg (35-45); ABG PH 7.23 (7.35-7.45); ABG PO2 205 mmHg (83-108); ABG TCO2 26 mmol/L (19-24)
[2021-12-03] MEDS: metFORMIN 500 MG TAB PO SCH ×3 (08:58→17:46)
[2021-12-03] MEDS ORDERED: HYDROCORTISONE 10 MG TAB PO SCH (09:00)
[2021-12-03] MEDS: METOPROLOL TARTRATE 25 MG TAB PO SCH (09:57)
[2021-12-03] MEDS: ASPIRIN 81 MG PO SCH (09:57)
[2021-12-03] MEDS: SPIRONOLACTONE 25 MG TAB PO SCH (09:58)
[2021-12-03] MEDS: PIPERACILLIN-TAZOBACTAM 3.375 GM in SODIUM CHLORIDE 0.9% 100 ML IVPB SCH ×2 (09:58→17:03)
[2021-12-03] MEDS: AMIODARONE 200 MG TAB PO SCH (09:58)
[2021-12-03] MEDS: APIXABAN 5 MG TAB PO SCH (09:58)
[2021-12-03] MEDS: lisinopriL 5 MG TAB PO SCH (09:58)
[2021-12-03] MEDS: ATORVASTATIN 20 MG TAB PO SCH (09:58)
[2021-12-03] MEDS ORDERED: HYDROCORTISONE 20 MG TAB PO SCH (10:30)
[2021-12-03 12:22] LABS: Appearance,Urine Clear (Clear); Bilirubin,Urine Negative (Negative); Blood,Urine Trace (Negative); Color,Urine Colorless; Glucose,Urine (UA) 2+ (Negative); Ketones,Urine Negative (Negative); Leukocyte Esterase,Urine Negative (Negative); Nitrite,Urine Negative (Negative); PH, Urine 6.5 (5.0-8.0); Protein,Urine Trace (Negative); RBC,Urine 4 /hpf (0-5); Specific Gravity,Urine 1.007 (1.001-1.035); Urobilinogen,Urine <2.0 mg/dL (<2.0); WBC,Urine 3 /hpf (0-5)
[2021-12-03 12:50] LABS: Glucose,Whole Blood 170 mg/dL (75-99)
[2021-12-03] MEDS: FORMOTEROL FUMARATE 20 MCG/2 ML NEBU INHALATION SCH ×2 (13:30→19:24)
[2021-12-03] MEDS ORDERED: IPRATROPIUM-ALBUTEROL 3 ML NEB INHALATION PRN (14:18)
--- NOTE | 2021-12-03 14:19 | P.CNPUL ---
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 fib, with a recent admission in October 2021 for acute non-ST elevated myocardial infarction. Patient came in to the emergency department on 12/02/2021 by ambulance for evaluation of shortness of breath, cough, diaphoresis and increased work of breathing. Patient had O2 saturations at 96%. She normally does not wear oxygen at home, no history of COPD, patient is status post 2 vaccines for COVID 19 PCR but has not had a booster. Denies any fevers at home. She tested negative for COVID 19. Chest x-ray shows pulmonary edema and pleural effusion fluid which has increased compared to old exam and is consistent with congestive heart failure. Chest x- ray shows sinus rhythm with PACs. Initial labs showed a white blood count of 13.4, hemoglobin of 9.5, INR of 1.0, sodium is 135, potassium is 2.4, chloride is 101, CO2 is 25, BUN is 11, creatinine 0.53, lactic acid was 2.8, magnesium was 1.2, troponin was 0.015, and subsequently increased to 0.244, CRP was 17.4, AST and ALT were mildly elevated at 39 and 35 respectively, proBNP came back positive at 2370, urinalysis showed no evidence of infection. Patient given a dose of IV Lasix in the emergency department, in view of increased work of breathing she was placed on BiPAP support and this morning she is on BiPAP with pressures of 12 and 5 and FiO2 of 100%. She is tachypneic, lung sounds are positive for diffuse coarse rhonchi. Blood gas this morning shows pO2 of 205, pCO2 50, and pH of 7.23. She was given some IV fluids in the ER for elevated lactic acid, currently IV fluids have been discontinued, patient was given Lasix 40 mg IV push, catheter has been placed, patient started to increase, she is feeling better. Echocardiogram will be completed, patient is suspected to have aspiration related pneumonia, and Zosyn will be added for empiric antibiotic coverage. Review of Systems All systems: negative Constitutional: Denies chills, Denies fever Eyes: denies blurred vision, denies pain Ears, nose, mouth and throat: Denies headache, Denies sore throat Cardiovascular: Denies chest pain, Denies shortness of breath Respiratory: Reports cough, Reports dyspnea, Reports wheezing Gastrointestinal: Denies abdominal pain, Denies diarrhea, Denies nausea, Denies vomiting Genitourinary: Denies dysuria, Denies hematuria Musculoskeletal: Denies myalgias Integumentary: Denies pruritus, Denies rash Neurological: Denies numbness, Denies weakness Psychiatric: Denies anxiety, Denies depression Endocrine: Denies fatigue, Denies weight change Past Medical History Past Medical History: Asthma, Diabetes Mellitus, Eye Disorder, GERD/Reflux, Hyperlipidemia, Hypertension, Sleep Apnea/CPAP/BIPAP Additional Past Medical History / Comment(s): NIDDM, vertigo, developmentally delayed, having sharp abd. pain recently, glaucoma, not sure why patient takes steroids-states has been taking for a while History of Any Multi-Drug Resistant Organisms: MRSA Date of last positivie culture/infection: 10/05/21 MDRO Source:: MRSA SPUTUM Past Surgical History: Appendectomy, Hysterectomy, Joint Replacement Additional Past Surgical History / Comment(s): bilateral knee replacement, right rotator cuff surgery, bilateral carpal tunnel, tumor removed right thigh, foot surg. Past Anesthesia/Blood Transfusion Reactions: No Reported Reaction Additional Past Anesthesia/Blood Transfusion Reaction / Comment(s): Pt "alittle slow to wake up." Pt has never recieved blood. Past Psychological History: Anxiety Smoking Status: Never smoker Past Alcohol Use History: None Reported Past Drug Use History: None Reported - Past Family History Sister(s) Family Medical History: Cancer Additional Family Medical History / Comment(s): colon, lung, stomach Medications and Allergies Home Medications Medication Instructions Recorded Confirmed Type ALPRAZolam [Xanax] 0.25 mg PO HS 12/14/14 12/02/21 History Cholecalciferol [Vitamin D3 (25 50 mcg PO DAILY 12/14/14 12/02/21 History Mcg = 1000 Iu)] Furosemide [Lasix] 20 mg PO DAILY 12/14/14 12/02/21 History Meclizine [Antivert] 25 mg PO TID 12/14/14 12/02/21 History Montelukast Sodium [Singulair] 10 mg PO DAILY 12/14/14 12/02/21 History metFORMIN HCL [Glucophage] 500 mg PO AC-TID 12/14/14 12/02/21 History Albuterol Nebulized [Ventolin 2.5 mg INHALATION RT-QID PRN 06/18/16 12/02/21 History Nebulized] Salmeterol Xinafoate [Serevent 1 puff INHALATION RT-BID 06/18/16 12/02/21 History Diskus] Sucralfate [Carafate] 1 gm PO TID 05/19/19 12/02/21 History Hydrocortisone 10 mg PO HS 07/12/20 12/02/21 History Hydrocortisone [Cortef] 20 mg PO DAILY 07/12/20 12/02/21 History Latanoprost Ophth [Xalatan 0.005%] 1 drops RIGHT EYE HS 07/12/20 12/02/21 History Alendronate Sodium [Binosto] 70 mg PO YOUNG 09/29/21 12/02/21 History Ketorolac 0.5% Ophth Soln [Acular 1 drop RIGHT EYE QID 09/29/21 12/02/21 History 0.5%] Multivitamins, Thera [Multivitamin 1 tab PO DAILY 09/29/21 12/02/21 History (formulary)] traMADol HCL 50 mg PO BID PRN 09/29/21 12/02/21 History Apixaban [Eliquis] 5 mg PO BID #60 tab 10/03/21 12/02/21 Rx Aspirin 81 mg PO DAILY tab 10/09/21 12/02/21 Rx Metoprolol Tartrate [Lopressor] 25 mg PO BID #60 tab 10/09/21 12/02/21 Rx Nitroglycerin Sl Tabs [Nitrostat] 0.4 mg SUBLINGUAL Q5M PRN #100 tab 10/09/21 12/02/21 Rx Spironolactone [Aldactone] 25 mg PO DAILY #30 tab 10/09/21 12/02/21 Rx Amiodarone [Cordarone] 200 mg PO DAILY 12/02/21 12/02/21 History Atorvastatin [Lipitor] 20 mg PO DAILY 12/02/21 12/02/21 History Omeprazole 40 mg PO DAILY 12/02/21 12/02/21 History lisinopriL [Zestril] 5 mg PO DAILY 12/02/21 12/02/21 History Allergies Allergy/AdvReac Type Severity Reaction Status Date / Time latex Allergy Rash/Hives Verified 12/02/21 21:17 sulfamethoxazole Allergy Unknown Verified 12/02/21 21:17 [From Bactrim] trimethoprim [From Bactrim] Allergy Unknown Verified 12/02/21 21:17 Physical Exam Vitals: Vital Signs Temp Pulse Resp BP Pulse Ox 12/03/21 13:13 108 H 40 H 188/94 100 12/03/21 12:44 89 26 H 118/68 98 12/03/21 11:59 79 31 H 12/03/21 11:50 80 37 H 12/03/21 10:08 101 H 28 H 112/61 97 12/03/21 08:31 105 H 30 H 158/86 100 12/03/21 08:01 113 H 30 H 158/79 12/03/21 07:55 112 H 28 H 158/83 100 12/03/21 07:48 100 26 H 164/95 98 12/03/21 07:39 101 H 26 H 174/87 98 12/03/21 07:20 113 H 20 12/03/21 07:10 98 22 12/03/21 07:00 98 26 H 185/86 100 12/03/21 06:00 98 F 84 26 H 160/76 99 12/03/21 04:16 98.1 F 84 20 158/78 98 12/03/21 02:00 81 22 134/77 96 12/03/21 01:00 89 24 136/76 98 12/02/21 23:00 98.2 F 78 22 164/67 94 L 12/02/21 22:59 75 18 126/76 96 12/02/21 21:20 72 18 132/72 96 12/02/21 19:58 99.0 F 78 18 138/64 98 Intake and Output 12/02/21 12/03/21 12/03/21 22:59 06:59 14:59 Other: Weight 54.431 kg GENERAL EXAM: Alert, pleasant, 76-year-old white female, on BiPAP support with pressures of 12 and 5 and FiO2 of 100%, dyspneic, tachypneic comfortable in no apparent distress. HEAD: Normocephalic/atraumatic. EYES: Normal reaction of pupils, equal size. Conjunctiva pink, sclera white. NOSE: Clear with pink turbinates. THROAT: No erythema or exudates. NECK: No masses, no JVD, no thyroid enlargement, no adenopathy. CHEST: No chest wall deformity. Symmetrical expansion. LUNGS: Equal air entry with diffuse coarse rhonchi CVS: Regular rate and rhythm, normal S1 and S2, no gallops, no murmurs, no rubs ABDOMEN: Soft, nontender. No hepatosplenomegaly, normal bowel sounds, no guarding or rigidity. EXTREMITIES: No clubbing, no edema, no cyanosis, 2+ pulses and upper and lower extremities. MUSCULOSKELETAL: Muscle strength and tone normal. SPINE: No scoliosis or deformity SKIN: No rashes CENTRAL NERVOUS SYSTEM: Alert and oriented -3. No focal deficits, tone is normal in all 4 extremities. PSYCHIATRIC: Alert and oriented -3. Appropriate affect. Intact judgment and insight. Results - Laboratory Findings CBC and BMP: 12/03/21 06:57 12/03/21 06:57 ABG ABG pH 7.23 (7.35-7.45) L 12/03/21 08:12 ABG pCO2 58 mmHg (35-45) H 12/03/21 08:12 ABG pO2 205 mmHg (83-108) H 12/03/21 08:12 ABG O2 Saturation 99.5 % (94-97) H 12/03/21 08:12 PT/INR, D-dimer PT 11.1 sec (9.0-12.0) 12/02/21 20:48 INR 1.0 (<1.2) 12/02/21 20:48 Abnormal lab findings: Abnormal Labs 12/02/21 12/02/21 12/02/21 20:48 20:48 20:48 WBC 13.4 H RBC 3.10 L Hgb 9.5 L D Hct 29.5 L RDW 16.2 H Neutrophils # 11.6 H ABG pH ABG pCO2 ABG pO2 ABG Total CO2 ABG O2 Saturation Sodium 135 L Potassium 2.4 L* Creatinine Glucose 176 H POC Glucose (mg/dL) Plasma Lactic Acid Jose De Jesus 2.7 H* Calcium 7.9 L Magnesium 1.2 L AST 39 H ALT 35 H Troponin I C-Reactive Protein 17.4 H Total Protein 5.2 L Albumin 2.9 L Urine Protein Urine Glucose (UA) Urine Blood 12/02/21 12/03/21 12/03/21 23:43 06:57 06:57 WBC 18.1 H RBC 3.49 L Hgb 10.9 L Hct 33.6 L RDW 16.6 H Neutrophils # 15.2 H ABG pH ABG pCO2 ABG pO2 ABG Total CO2 ABG O2 Saturation Sodium 136 L Potassium Creatinine 0.42 L Glucose 166 H POC Glucose (mg/dL) Plasma Lactic Acid Jose De Jesus 2.8 H* Calcium 8.1 L Magnesium 1.4 L AST ALT 37 H Troponin I C-Reactive Protein Total Protein 5.8 L Albumin 3.2 L Urine Protein Urine Glucose (UA) Urine Blood 12/03/21 12/03/21 12/03/21 07:35 08:12 08:41 WBC RBC Hgb Hct RDW Neutrophils # ABG pH 7.23 L ABG pCO2 58 H ABG pO2 205 H ABG Total CO2 26 H ABG O2 Saturation 99.5 H Sodium Potassium Creatinine Glucose POC Glucose (mg/dL) 243 H Plasma Lactic Acid Jose De Jesus Calcium Magnesium AST ALT Troponin I C-Reactive Protein Total Protein Albumin Urine Protein Trace H Urine Glucose (UA) 2+ H Urine Blood Trace H 12/03/21 12/03/21 12:04 12:49 WBC RBC Hgb Hct RDW Neutrophils # ABG pH ABG pCO2 ABG pO2 ABG Total CO2 ABG O2 Saturation Sodium Potassium Creatinine Glucose POC Glucose (mg/dL) 170 H Plasma Lactic Acid Jose De Jesus Calcium Magnesium AST ALT Troponin I 0.244 H* C-Reactive Protein Total Protein Albumin Urine Protein Urine Glucose (UA) Urine Blood - Diagnostic Findings Chest x-ray: report reviewed, image reviewed Assessment and Plan Plan: Assessment: #1. Acute hypoxic respiratory failure related to acute exacerbation of systolic CHF, and possibility of aspiration pneumonia is also being considered, patient tested negative for COVID-19 #2. Elevated troponin, rule out possibility of non-ST elevated myocardial infarction #3. Rule out possibility of aspiration #4. History of previous non-ST elevated myocardial infarction in October 2021 #5. 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 History of mild intermittent bronchial asthma #7. History of obstructive sleep apnea on CPAP in the outpatient setting #8. Hypertension #9. Hyperlipidemia #10. History of gout #11. Diabetes mellitus type 2 Plan: Continue with BiPAP support, settings have been adjusted to 15/5 and FiO2 of 60% Continue weaning FiO2 to keep O2 sats ration is at or above 90% We will add maintenance dose Lasix 40 mg twice daily We will add Zosyn for empiric antibiotic coverage Continue bronchodilators We will add IV Solu-Medrol Request cardiology consultation Obtain echocardiogram Continue oral anticoagulation I performed a history & physical examination of the patient and discussed their management with my nurse practitioner, Roz Jacobo. I reviewed the nurse practitioner's note and agree with the documented findings and plan of care. Lung sounds are positive for diffuse rhonchi throughout the lung meredith. The findings and the impression was discussed with the patient. I attest to the documentation by the nurse practitioner. Time with Patient: Greater than 30
[2021-12-03] MEDS: methylPREDNISolone SOD SUCCI 125 MG/2 ML VIAL IV SCH ×2 (14:50→17:54)
[2021-12-03] MEDS ORDERED: NITROGLYCERIN SL TABS 0.4 MG TAB SUBLINGUAL PRN (16:24)
[2021-12-03] MEDS ORDERED: MECLIZINE 25 MG TAB PO PRN (16:24)
[2021-12-03 17:13] LABS: Glucose,Whole Blood 189 mg/dL (75-99)
[2021-12-03] MEDS: SUCRALFATE 1 GM TAB PO SCH (17:46)
--- NOTE | 2021-12-03 17:51 | HP ---
HISTORY AND PHYSICAL I am covering for Dr. Engel. DATE OF SERVICE: 12/03/2021 CHIEF COMPLAINT: Shortness of breath. HISTORY OF PRESENT ILLNESS: This 76-year-old woman with a past medical history of asthma, diabetes mellitus, history of hypertension, hyperlipidemia, history of nonischemic cardiomyopathy, history of takotsubo syndrome, ejection fraction 20% to 30%, being followed by Dr. Engel in the outpatient setting, was complaining of shortness of breath. The patient came to [facility] and was admitted for further evaluation and treatment. Patient was unable to talk and the patient had severe hypoxemia. The patient also was started on BiPAP. The patient was given diuretics. Patient improved significantly. Evaluation by Dr. Ramirez is in progress at this time. The patient has taken two doses of COVID vaccine. Bilateral chest infiltrates are noted. The patient also had elevated lactic acid. Troponin is elevated at 0.244, magnesium 1.4. There is no history of any fever, rigor or chills at this time. The patient was unable to give coherent history because the patient was on BiPAP, and most of the history was taken from my discussion with staff and review of the chart at this time. PAST MEDICAL HISTORY: Asthma, diabetes mellitus, GERD, hypertension, hyperlipidemia, sleep apnea, history of CHF. HOME MEDICATIONS: Ultram, Glucophage, Zestril, Carafate, Aldactone, Serevent, Nitrostat, multivitamins. Doses and other medications are reviewed. ALLERGIES: LATEX AND BACTRIM Family history, social history and review of systems could not be taken, but history of lung, colon and stomach cancer per family per chart and no history of smoking. PHYSICAL EXAMINATION: Patient is stuporous. Patient is on BiPAP. BiPAP settings are noted. Pulse is 108, blood pressure 90/94, respiration 18, temperature normal, pulse ox 100% on BiPAP. HEENT: Conjunctivae normal. NECK: No jugular venous distention. CARDIOVASCULAR: S1, S2 muffled. RESPIRATION: Breath sounds diminished at the bases. A few scattered rhonchi and crackles. ABDOMEN: Soft, nontender. No mass palpable. LEGS: No edema. No swelling. NERVOUS SYSTEM: Higher functions as mentioned earlier. Moves all 4 limbs. No focal motor or sensory deficit. LYMPHATICS: No lymph node palpable in neck, axillae or groin. SKIN: No ulcer, rash, bleeding. JOINTS: No active deforming arthropathy. LABS: WBC 18.2, hemoglobin 10.9, sodium 136, potassium 3.9. Chest x-ray reviewed personally. ASSESSMENT: 1. Congestive heart failure, acute exacerbation, with acute on chronic systolic dysfunction, ejection fraction 20% to 25% with acute hypoxic respiratory failure, on BiPAP. 2. Rule out bilateral aspiration pneumonia or COVID-19 pneumonia. 3. Hyponatremia. 4. Hypokalemia. 5. Elevated plasma lactic acid. 6. Possible sepsis. 7. Hypomagnesemia. 8. Troponin 0.244, indeterminate. Rule out acute xim-[id number]-elevation myocardial infarction. 9. Acute respiratory acidosis, present on admission. 10.Increased white count. 11.Anemia, normocytic. 12.History of asthma. 13.Diabetes mellitus, type 2. 14.Gastroesophageal reflux disease. 15.Hypertension. 16.Hyperlipidemia. 17.Obstructive sleep apnea. 18.History of MRSA. 19.History of appendectomy. 20.History of hysterectomy. 21.History of degenerative joint disease. 22.History of anxiety. RECOMMENDATIONS AND DISCUSSION: In this 76-year-old woman who presented with multiple complex medical issues, we will monitor the patient closely, continue the current medications, continue with the BiPAP. Continue with the bronchodilators. Continue with empiric antibiotics. Cardiology and pulmonology consultations. IV Zosyn. COVID-19 has been negative. Continue to monitor. Two-D echo has been ordered. Guarded prognosis because of multiple complex medical issues. Further recommendations to follow. A copy of this dictation is being forwarded to Dr. Engel, who is the primary physician. Medication reconciliation will be done. Cultures also will be obtained. Discussed with Dr. Engel. Dr. Engel will follow tomorrow. MMODL / IJN: [id number] / [id number]
[2021-12-03] MEDS: INSULIN ASPART (NovoLOG) 100 UNIT/ML VIAL SQ SCH ×2 (17:54→21:13)
[2021-12-03] MEDS: IPRATROPIUM-ALBUTEROL 3 ML NEB INHALATION SCH (19:24)
[2021-12-03 20:37] LABS: Glucose,Whole Blood 179 mg/dL (75-99)
[2021-12-03] MEDS: FUROSEMIDE 10 MG/ML 4 ML VIAL IV SCH (21:13)
[2021-12-04] MEDS: methylPREDNISolone SOD SUCCI 125 MG/2 ML VIAL IV SCH ×4 (01:06→17:38)
[2021-12-04] MEDS: PIPERACILLIN-TAZOBACTAM 3.375 GM in SODIUM CHLORIDE 0.9% 100 ML IVPB SCH ×3 (01:07→18:13)
[2021-12-04] MEDS: METOPROLOL TARTRATE 25 MG TAB PO SCH ×3 (01:07→20:41)
[2021-12-04] MEDS: APIXABAN 5 MG TAB PO SCH ×3 (01:07→20:40)
[2021-12-04] MEDS: KETOROLAC 0.5% OPHTH DROPS 5 ML BTL RIGHT EYE SCH ×4 (01:18→11:57)
[2021-12-04] MEDS: LATANOPROST 0.005% OPHTH DROPS 2.5 ML BTL RIGHT EYE SCH ×2 (01:18→22:09)
--- NOTE | 2021-12-04 07:45 | ECHOF ---
Referral Reason:shortness of breath MEASUREMENTS -------- HEIGHT: 129.5 cm WEIGHT: 54.4 kg BP: IVSd: 0.9 cm (0.6 - 1.1) LVIDd: 4.1 cm (3.9 - 5.3) LVPWd: 1.0 cm (0.6 - 1.1) IVSs: 1.2 cm LVIDs: 2.9 cm LVPWs: 1.3 cm MV E Jay: 0.94 m/s MV DecT: 127 ms MV A Jay: 1.00 m/s MV E/A Ratio: 0.94 RAP: 5.00 mmHg RVSP: 47.14 mmHg FINDINGS -------- Limited Study The left ventricular size is normal. Left ventricular wall thickness is normal. Overall left vent ricular systolic function is severely impaired with, an EF between 25 - 30 %. Mid inferoseptal LV w all motion is hypokinetic. Apical anterior LV wall motion is hypokinetic. Apical lateral LV wal l motion is hypokinetic. Apical inferior LV wall motion is hypokinetic. Apical septum LV wall m otion is hypokinetic. The tricuspid valve appears structurally normal. Mild tricuspid regurgitation present. There is m ild to moderate pulmonary hypertension. The right ventricular systolic pressure, as measured by Dop pler, is 47.14mmHg. There is a small, generalized pericardial effusion present. CONCLUSIONS -------- 1. The left ventricular size is normal. 2. Left ventricular wall thickness is normal. 3. Apical anterior LV wall motion is hypokinetic. 4. Apical lateral LV wall motion is hypokinetic. 5. Apical inferior LV wall motion is hypokinetic. 6. Apical septum LV wall motion is hypokinetic. 7. Mild tricuspid regurgitation present. 8. There is mild to moderate pulmonary hypertension. 9. The right ventricular systolic pressure, as measured by Doppler, is 47.14mmHg. 10. There is a small, generalized pericardial effusion present. HEBREW TEACHER: Fanta Hammer RDCS
[2021-12-04 07:55] LABS: Glucose,Whole Blood 315 mg/dL (75-99)
[2021-12-04] MEDS: ASPIRIN 81 MG PO SCH (07:59)
[2021-12-04] MEDS: MULTIVITAMINS, THERA 1 EACH TAB PO SCH (07:59)
[2021-12-04] MEDS: PANTOPRAZOLE 40 MG TABLET PO SCH (07:59)
[2021-12-04] MEDS: lisinopriL 5 MG TAB PO SCH (07:59)
[2021-12-04] MEDS: CHOLECALCIFEROL 25 MCG (1000 IU) TABLET PO SCH (07:59)
[2021-12-04] MEDS: metFORMIN 500 MG TAB PO SCH ×3 (07:59→17:37)
[2021-12-04] MEDS: ATORVASTATIN 20 MG TAB PO SCH (07:59)
[2021-12-04] MEDS: SPIRONOLACTONE 25 MG TAB PO SCH (07:59)
[2021-12-04] MEDS: SUCRALFATE 1 GM TAB PO SCH ×3 (07:59→17:37)
[2021-12-04] MEDS: AMIODARONE 200 MG TAB PO SCH (07:59)
[2021-12-04] MEDS: INSULIN ASPART (NovoLOG) 100 UNIT/ML VIAL SQ SCH ×4 (08:00→20:41)
[2021-12-04] MEDS: FUROSEMIDE 10 MG/ML 4 ML VIAL IV SCH ×2 (08:00→20:40)
[2021-12-04 09:04] LABS: Basophils # (A) 0.03 X 10*3/uL (0.00-0.10); Basophils % (A) 0.2 %; Eosinophils # (A) 0 X 10*3/uL (0.04-0.35); Eosinophils % (A) 0 %; HCT 30.6 % (37.2-46.3); HGB 9.7 g/dL (12.0-15.0); Immature Grans, Automated 0.6 %; Lymphocytes # (A) 0.39 X 10*3/uL (0.90-5.00); Lymphocytes % (A) 2.5 %; MCH 30.3 pg (27.0-32.0); MCHC 31.7 g/dL (32.0-37.0); MCV 95.6 fL (80.0-97.0); Mean Platelet Volume 10.4 fL (9.5-12.2); Monocytes # (A) 0.26 X 10*3/uL (0.20-1.00); Monocytes % (A) 1.6 %; NRBC Per 100 WBC 0 /100 WBCS (0.0-0.0); Neutrophils % (A) 95.1 %; Platelet Count 320 X 10*3/uL (140-440); RDW 17.6 % (11.5-14.5); WBC 15.88 X 10*3/uL (4.50-10.00)
[2021-12-04 09:10] LABS: African American GFR (CKD) 101.9 (60.0-200.0); Anion Gap 19.2 mmol/L (10.00-18.00); BUN/Creat Ratio 28.67 Ratio (12.00-20.00); Blood Urea Nitrogen 17.2 mg/dL (9.0-27.0); Calcium 7.7 mg/dL (8.7-10.3); Carbon Dioxide 22.8 mmol/L (20.0-27.5); Non-African American GFR(CKD) 87.9 (60.0-200.0); Potassium 3.4 mmol/L (3.5-5.5)
[2021-12-04] MEDS: FORMOTEROL FUMARATE 20 MCG/2 ML NEBU INHALATION SCH ×2 (09:33→21:30)
[2021-12-04] MEDS: IPRATROPIUM-ALBUTEROL 3 ML NEB INHALATION SCH ×3 (09:33→21:30)
[2021-12-04] MEDS ORDERED: Potassium Replacement Protocol 1 EACH MISC MISCELLANE PRN (09:55)
[2021-12-04 11:39] LABS: Glucose,Whole Blood 260 mg/dL (75-99)
[2021-12-04] MEDS: POTASSIUM CHLORIDE ER 20 MEQ TAB.ER PO SCH (11:51)
[2021-12-04] MEDS ORDERED: Magnesium Replacement Protocol 1 EACH MISC MISCELLANE PRN (12:05)
--- NOTE | 2021-12-04 12:35 | P.CRDCN ---
History of Present Illness History of present illness: This is a 76-year-old female patient with past medical history of nonischemic cardiomyopathy, Takotsubo syndrome, hypertension, diabetes mellitus type 2, obstructive sleep apnea, Asthma, paroxysmal atrial fibrillation. She follows with Dr. Coelho. We are on consultation for congestive heart failure. Patient seen and examined at bedside, no acute distress. She states her shortness of b reath started on Friday and progressively got worse. She states now even at rest she felt more short of breath. She also has been having symptoms of cough and dyspnea on exertion. She lives currently with her sister, her sister noticed she had worsening shortness of breath. EMS was called. She denies any chest pain, palpitations, lightheadedness, dizziness, syncope or near syncope. She denies fever or chills. She states her lower extremities were swollen but now improved. On admission, patient found to be hypokalemic K 2.4, lactic acidosis, hypomagnesemia, leukocytosis. In October 2021, patient presented to the hospital with severe shortness of breath and some chest discomfort. She was found to have dynamic EKG changes anteriorly with mildly elevated troponin. Patient underwent cardiac catheterization which revealed normal coronary arteries with an elevated LVEDP of 25-30. She underwent left ventriculogram which revealed akinesis of the anterior apical and inferoapical wall consistent with Takotsubo syndrome. Echocardiogram revealed EF 20-25%. She was treated with diuretics, stabilized and discharged home. DIAGNOSTICS EKG reveals sinus rhythm, heart rate 80, PACs. non-specific abnormalities Repeat EKG this morning revealed sinus mechanism HR 70, deep T wave inversions i n anterior leads, prolonged QTc 656ms Telemetry tracings indicate sinus mechanism HR 70s-60s Chest xray Worsening bilateral multifocal opacities Limited echocardiogram revealed an EF of 2530%, with apical LV wall motion hypokinesis, mild to moderate pulmonary hypertension RVSP 47mmHg, small gene ralized pericardial effusion Laboratory reviewed, WBC 15.8, hemoglobin 0.7, platelets 320, sodium 144, potassium 3.4, BUN 17, serum creatinine 0.6, magnesium 1.4, troponin 0.015, 0.24, 0.10 ,covid-19 negative Current cardiac medications include lisinopril 5mg daily, spironolactone 25mg daily, metoprolol tartrate 25mg BID, Lasix 20mg daily, atorvastatin REVIEW OF SYSTEMS At the time of my exam: CONSTITUTIONAL: Denies fever or chills. CARDIOVASCULAR: Denies chest pain, +shortness of breath, Denies orthopnea, PND or palpitations. RESPIRATORY: Denies cough. GASTROINTESTINAL: Denies abdominal pain, diarrhea, constipation, nausea or vomiting. MUSCULOSKELETAL: Denies myalgias. NEUROLOGIC: Denies numbness, tingling, headache or weakness. ENDOCRINE: Denies fatigue, weight change, polydipsia or polyurina. GENITOURINARY: Denies burning, hematuria or urgency with micturation. HEMATOLOGIC: Denies history of anemia or bleeding. PHYSICAL EXAMINATION Blood pressure 122/68 HR 77, afebrile on 6L high flow nasal cannula CONSTITUTIONAL: Appears short of breath HEENT: Head is normocephalic. Pupils are equal, round. Sclerae anicteric. Mucous membranes of the mouth are moist. No JVD. CHEST EXAMINATION: Lungs are diminished to auscultation. No chest wall tenderness is noted on palpation or with deep breathing. HEART EXAMINATION: Regular rate and rhythm. S1, S2 heard. ABDOMEN: Soft, nontender. Positive bowel sounds. EXTREMITIES: 2+ peripheral pulses, mild bilaterally lower extremity edema and no calf tenderness. NEUROLOGIC EXAMINATION: Patient is awake, alert and oriented x3. ASSESSMENT Shortness of breath, could be a combination of systolic heart failure and pneumonia, appears to be more pulmonary etiology, worsening multifocal opacities on chest xray Acute on chronic systolic heart failure Takotsubo syndrome EKG changes with deep T waves likely due to Takotsubo Hypokalemia Hypomagnesemia Lactic acidosis Leukocytosis Prolonged QT History of hypertension Type 2 Diabetes Obstructive sleep apnea Asthma Paroxysmal atrial fibrillation on Eliquis PLAN Repeat EKG We will continue IV Lasix 40mg BID for another 24 hours Monitor I/Os, daily weights, renal function and electrolytes Continue home cardiac medications Avoid prolonged Qt medications Pulmonary following, appreciate recs Further recommendations based on clinical course Nurse Practitioner note has been reviewed, I agree with a documented findings and plan of care. Patient was seen and examined. Past Medical History Past Medical History: Asthma, Diabetes Mellitus, Eye Disorder, GERD/Reflux, Hyperlipidemia, Hypertension, Sleep Apnea/CPAP/BIPAP Additional Past Medical History / Comment(s): NIDDM, vertigo, developmentally delayed, glaucoma, cpap at home History of Any Multi-Drug Resistant Organisms: MRSA Date of last positivie culture/infection: 10/05/21 MDRO Source:: MRSA SPUTUM Past Surgical History: Appendectomy, Hysterectomy, Joint Replacement Additional Past Surgical History / Comment(s): bilateral knee replacement, right rotator cuff surgery, bilateral carpal tunnel, tumor removed right thigh, bilate ral foot surg r/t gout and arthritis, shingles 11/20, cataracts removed bilaterally Past Anesthesia/Blood Transfusion Reactions: No Reported Reaction Additional Past Anesthesia/Blood Transfusion Reaction / Comment(s): Pt "alittle slow to wake up." Pt has never recieved blood. Past Psychological History: Anxiety Additional Psychological History / Comment(s): Pt is developementally delayed. Smoking Status: Never smoker Past Alcohol Use History: None Reported Past Drug Use History: None Reported - Past Family History Sister(s) Family Medical History: Cancer Additional Family Medical History / Comment(s): colon, lung, stomach Medications and Allergies Home Medications Medication Instructions Recorded Confirmed Type ALPRAZolam [Xanax] 0.25 mg PO HS 12/14/14 12/02/21 History Cholecalciferol [Vitamin D3 (25 50 mcg PO DAILY 12/14/14 12/02/21 History Mcg = 1000 Iu)] Furosemide [Lasix] 20 mg PO DAILY 12/14/14 12/02/21 History Meclizine [Antivert] 25 mg PO TID 12/14/14 12/02/21 History Montelukast Sodium [Singulair] 10 mg PO DAILY 12/14/14 12/02/21 History metFORMIN HCL [Glucophage] 500 mg PO AC-TID 12/14/14 12/02/21 History Albuterol Nebulized [Ventolin 2.5 mg INHALATION RT-QID PRN 06/18/16 12/02/21 History Nebulized] Salmeterol Xinafoate [Serevent 1 puff INHALATION RT-BID 06/18/16 12/02/21 History Diskus] Sucralfate [Carafate] 1 gm PO TID 05/19/19 12/02/21 History Hydrocortisone 10 mg PO HS 07/12/20 12/02/21 History Hydrocortisone [Cortef] 20 mg PO DAILY 07/12/20 12/02/21 History Latanoprost Ophth [Xalatan 0.005%] 1 drops RIGHT EYE HS 07/12/20 12/02/21 History Alendronate Sodium [Binosto] 70 mg PO YOUNG 09/29/21 12/02/21 History Multivitamins, Thera [Multivitamin 1 tab PO DAILY 09/29/21 12/02/21 History (formulary)] traMADol HCL 50 mg PO BID PRN 09/29/21 12/02/21 History Apixaban [Eliquis] 5 mg PO BID #60 tab 10/03/21 12/02/21 Rx Aspirin 81 mg PO DAILY tab 10/09/21 12/02/21 Rx Metoprolol Tartrate [Lopressor] 25 mg PO BID #60 tab 10/09/21 12/02/21 Rx Nitroglycerin Sl Tabs [Nitrostat] 0.4 mg SUBLINGUAL Q5M PRN #100 tab 10/09/21 12/02/21 Rx Spironolactone [Aldactone] 25 mg PO DAILY #30 tab 10/09/21 12/02/21 Rx Amiodarone [Cordarone] 200 mg PO DAILY 12/02/21 12/02/21 History Atorvastatin [Lipitor] 20 mg PO DAILY 12/02/21 12/02/21 History Omeprazole 40 mg PO DAILY 12/02/21 12/02/21 History lisinopriL [Zestril] 5 mg PO DAILY 12/02/21 12/02/21 History Allergies Allergy/AdvReac Type Severity Reaction Status Date / Time latex Allergy Rash/Hives Verified 12/02/21 21:17 sulfamethoxazole Allergy Unknown Verified 12/02/21 21:17 [From Bactrim] trimethoprim [From Bactrim] Allergy Unknown Verified 12/02/21 21:17 Physical Exam Vitals: Vital Signs Temp Pulse Pulse Resp BP BP Pulse Ox 12/04/21 08:00 98.3 F 78 14 109/65 95 12/04/21 02:00 98.2 F 77 28 H 122/68 99 12/03/21 19:52 90 12/03/21 19:41 88 12/03/21 19:37 97.2 F L 78 28 H 107/66 99 12/03/21 19:26 88 12/03/21 19:00 100 12/03/21 16:27 98.1 F 87 20 130/68 98 12/03/21 16:19 90 12/03/21 16:05 92 12/03/21 14:48 82 18 119/71 100 12/03/21 13:13 108 H 40 H 188/94 100 12/03/21 12:44 89 26 H 118/68 98 12/03/21 11:59 79 31 H 12/03/21 11:50 80 37 H 12/03/21 10:08 101 H 28 H 112/61 97 Intake and Output 12/03/21 12/04/21 12/04/21 22:59 06:59 14:59 Other: Voiding Method Indwelling Catheter Indwelling Catheter Weight 54.431 kg Results 12/04/21 04:17 12/04/21 04:17 Cardiac Enzymes 12/03/21 12/04/21 Range/Units 12:04 04:17 Troponin I 0.244 H* 0.102 H* (0.000-0.034) ng/mL Current Medications Generic Name Dose Route Start Last Admin Trade Name Freq PRN Reason Stop Dose Admin Albuterol/Ipratropium 3 ml 12/03/21 20:00 12/03/21 19:24 Ipratropium-Albuterol 3 Ml Neb INHALATION 3 ml RT-TID RITESH Administration Albuterol/Ipratropium 3 ml 12/03/21 14:18 Ipratropium-Albuterol 3 Ml Neb INHALATION RT-Q2H PRN Shortness Of Breath Or Wheezing Amiodarone HCl 200 mg 12/03/21 09:00 12/04/21 07:59 Amiodarone 200 Mg Tab PO 200 mg DAILY RITESH Administration Apixaban 5 mg 12/02/21 22:30 12/04/21 07:59 Apixaban 5 Mg Tab PO 5 mg BID RITESH Administration Protocol Aspirin 81 mg 12/03/21 09:00 12/04/21 07:59 Aspirin 81 Mg PO 81 mg DAILY RITESH Administration Atorvastatin Calcium 20 mg 12/03/21 09:00 12/04/21 07:59 Atorvastatin 20 Mg Tab PO 20 mg DAILY RITESH Administration Cholecalciferol 50 mcg 12/04/21 09:00 12/04/21 07:59 Cholecalciferol 25 Mcg (1000 Iu) Tablet PO 50 mcg DAILY RITESH Administration Formoterol Fumarate 20 mcg 12/03/21 13:30 12/03/21 19:24 Formoterol Fumarate 20 Mcg/2 Ml Nebu INHALATION 20 mcg RT-BID RITESH Administration Furosemide 40 mg 12/03/21 21:00 12/04/21 08:00 Furosemide 10 Mg/Ml 4 Ml Vial IV 40 mg Q12HR RITESH Administration Piperacillin Sod/Tazobactam 100 mls @ 25 mls/hr 12/03/21 08:45 12/04/21 08:33 Sod 3.375 gm/ Sodium Chloride IVPB 25 mls/hr Q8HR RITESH Administration Insulin Aspart 0 unit 12/03/21 17:30 12/04/21 08:00 Insulin Aspart (Novolog) 100 Unit/Ml Vial SQ 5 unit ACHS RITESH Administration Protocol Ketorolac Tromethamine 1 drops 12/03/21 18:00 12/04/21 01:18 Ketorolac 0.5% Ophth Drops 5 Ml Btl RIGHT EYE Not Given QID RITESH Latanoprost 1 drops 12/03/21 21:00 12/04/21 01:18 Latanoprost 0.005% Ophth Drops 2.5 Ml Btl RIGHT EYE Not Given HS RITESH Lisinopril 5 mg 12/03/21 09:00 12/04/21 07:59 Lisinopril 5 Mg Tab PO 5 mg DAILY RITESH Administration Meclizine HCl 25 mg 12/03/21 16:24 Meclizine 25 Mg Tab PO TID PRN Vertigo Metformin HCl 500 mg 12/03/21 07:30 12/04/21 07:59 Metformin 500 Mg Tab PO 500 mg AC-TID RITESH Administration Methylprednisolone Sodium Succinate 60 mg 12/03/21 14:30 12/04/21 05:38 Methylprednisolone Sod Succi 125 Mg/2 Ml Vial IV 60 mg Q6HR RITESH Administration Metoprolol Tartrate 25 mg 12/03/21 09:00 12/04/21 07:59 Metoprolol Tartrate 25 Mg Tab PO 25 mg BID RITESH Administration Miscellaneous Information 1 each 12/02/21 22:16 Potassium Replacement Protocol 1 Each Misc MISCELLANE DAILY PRN Per Protocol Protocol Multivitamins 1 each 12/04/21 09:00 12/04/21 07:59 Multivitamins, Thera 1 Each Tab PO 1 each DAILY RITESH Administration Nitroglycerin 0.4 mg 12/03/21 16:24 Nitroglycerin Sl Tabs 0.4 Mg Tab SUBLINGUAL Q5M PRN Chest Pain Pantoprazole Sodium 40 mg 12/04/21 07:30 12/04/21 07:59 Pantoprazole 40 Mg Tablet PO 40 mg [id number] RITESH Administration Spironolactone 25 mg 12/03/21 09:00 12/04/21 07:59 Spironolactone 25 Mg Tab PO 25 mg DAILY RITESH Administration Sucralfate 1 gm 12/03/21 17:30 12/04/21 07:59 Sucralfate 1 Gm Tab PO 1 gm AC-TID RITESH Administration Tramadol HCl 50 mg 12/02/21 22:17 Tramadol 50 Mg Tab PO BID PRN Pain Intake and Output 12/03/21 12/04/21 12/04/21 22:59 06:59 14:59 Other: Voiding Method Indwelling Catheter Indwelling Catheter Weight 54.431 kg 12/03/21 06:57 12/03/21 06:57
[2021-12-04] MEDS: MAGNESIUM SULFATE-D5W PMX 1 GM in DEXTROSE/WATER 1 100ML.BAG IVPB SCH ×4 (13:50→17:50)
--- NOTE | 2021-12-04 16:03 | P.PN ---
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 fib, with a recent admission in October 2021 for acute non-ST elevated myocardial infarction. Patient came in to the emergency department on 12/02/2021 by ambulance for evaluation of shortness of breath, cough, diaphoresis and increased work of breathing. Patient had O2 saturations at 96%. She normally does not wear oxygen at home, no history of COPD, patient is status post 2 vaccines for COVID 19 PCR but has not had a booster. Denies any fevers at home. She tested negative for COVID 19. Chest x-ray shows pulmonary edema and pleural effusion fluid which has increased compared to old exam and is consistent with congestive heart failure. Chest x-ray shows sinus rhythm with PACs. Initial labs showed a white blood count of 13.4, hemoglobin of 9.5, INR of 1.0, sodium is 135, potassium is 2.4, chloride is 101, CO2 is 25, BUN is 11, creatinine 0.53, lactic acid was 2.8, magnesium was 1.2, troponin was 0.015, and subsequently increased to 0.244, CRP was 17.4, AST and ALT were mildly elevated at 39 and 35 respectively, proBNP came back positive at 2370, urinalysis showed no evidence of infection. Patient given a dose of IV Lasix in the emergency department, in view of increased work of breathing she was placed on BiPAP support and this morning she is on BiPAP with pressures of 12 and 5 and FiO2 of 100%. She is tachypneic, lung sounds are positive for diffuse coarse rhonchi. Blood gas this morning shows pO2 of 205, pCO2 50, and pH of 7.23. She was given some IV fluids in the ER for elevated lactic acid, currently IV fluids have been discontinued, patient was given Lasix 40 mg IV push, catheter has been placed, patient started to increase, she is feeling better. Echocardiogram will be completed, patient is suspected to have aspiration related pneumonia, and Zosyn will be added for empiric antibiotic coverage. On 05/24/2022 patient seen in follow-up on medical surgical floor. She is breathing much more comfortably today, she is off BiPAP support, she is currently on 5 L of oxygen pulse ox is 95%. Hemodynamic stable, afebrile. No complaints of chest pain, lung sounds reveal crackles at bilateral bases, she sounds much less congested on today's exam. Her sister is at the bedside, and she reports that the patient was coughing and throwing up on Friday, possibility of aspiration pneumonia is considered. We'll cover the patient with Zosyn for empiric antibiotic coverage, she also remains on IV Solu-Medrol 60 mg every 6 hours, and IV diuretics Lasix 40 mg every 12 hours. She is in -900 mL of fluid balance over the last 24 hours. Follow-up chest x-ray will be ordered for tomorrow. Echocardiogram has been completed showing EF between 25 and 30% slightly improved from previous echocardiogram. There was a small generalized pericardial effusion. There is mild tricuspid regurgitation, mild to moderate pulmonary hypertension with right-sided pressure of 47.14 mmHg. Blood cultures have shown no growth. His labs have been reviewed, her white blood cell count is 15.8, hemoglobin is 9.7, sodium is 144, potassium is 3.4, anion gap was 19, BUN is 17 and creatinine 0.6, her second third and fourth sets of troponins came back elevated at 0.244, 0.102, and 0.063. Cardiology is following. ProCalcitonin level also came back elevated at 1.11 Objective - Vital Signs Vital signs: Vital Signs Temp 97.7 F 12/04/21 14:32 Pulse 92 12/04/21 14:32 Resp 14 12/04/21 14:32 BP 94/52 12/04/21 14:32 Pulse Ox 95 12/04/21 14:32 Intake & Output 12/03/21 12/04/21 12/04/21 18:59 06:59 18:59 Output Total 900 Balance -900 Weight 54.431 kg Output: Urine 900 Other: Voiding Method Indwelling Catheter Indwelling Catheter - Exam GENERAL EXAM: Alert, pleasant, 76-year-old white female, on 5 L of oxygen the pulse ox of 95% dyspneic, more comfortable in no apparent distress. HEAD: Normocephalic/atraumatic. EYES: Normal reaction of pupils, equal size. Conjunctiva pink, sclera white. NOSE: Clear with pink turbinates. THROAT: No erythema or exudates. NECK: No masses, no JVD, no thyroid enlargement, no adenopathy. CHEST: No chest wall deformity. Symmetrical expansion. LUNGS: Equal air entry with diffuse coarse rhonchi CVS: Regular rate and rhythm, normal S1 and S2, no gallops, no murmurs, no rubs ABDOMEN: Soft, nontender. No hepatosplenomegaly, normal bowel sounds, no guarding or rigidity. EXTREMITIES: No clubbing, no edema, no cyanosis, 2+ pulses and upper and lower extremities. MUSCULOSKELETAL: Muscle strength and tone normal. SPINE: No scoliosis or deformity SKIN: No rashes CENTRAL NERVOUS SYSTEM: Alert and oriented -3. No focal deficits, tone is normal in all 4 extremities. PSYCHIATRIC: Alert and oriented -3. Appropriate affect. Intact judgment and insight. - Labs CBC & Chem 7: 12/04/21 04:17 12/04/21 04:17 Labs: Abnormal Lab Results - Last 24 Hours (Table) 12/03/21 12/03/21 12/03/21 Range/Units 12:04 17:12 20:35 WBC (4.50-10.00) X 10*3/uL RBC (4.10-5.20) X 10*6/uL Hgb (12.0-15.0) g/dL Hct (37.2-46.3) % MCHC (32.0-37.0) g/dL RDW (11.5-14.5) % Immature Gran # (0.00-0.04) X 10*3/uL Neutrophils # (1.80-7.70) X 10*3/uL Lymphocytes # (0.90-5.00) X 10*3/uL Eosinophils # (0.04-0.35) X 10*3/uL Potassium (3.5-5.5) mmol/L Anion Gap (10.00-18.00) mmol/L BUN/Creatinine Ratio (12.00-20.00) Ratio Glucose (70-110) mg/dL POC Glucose (mg/dL) 189 H 179 H (75-99) mg/dL Calcium (8.7-10.3) mg/dL Magnesium (1.5-2.4) mg/dL Troponin I (0.000-0.034) ng/mL Procalcitonin 1.11 H (0.02-0.09) ng/mL 12/04/21 12/04/21 12/04/21 Range/Units 04:17 04:17 04:17 WBC 15.88 H (4.50-10.00) X 10*3/uL RBC 3.20 L (4.10-5.20) X 10*6/uL Hgb 9.7 L (12.0-15.0) g/dL Hct 30.6 L (37.2-46.3) % MCHC 31.7 L (32.0-37.0) g/dL RDW 17.6 H (11.5-14.5) % Immature Gran # 0.10 H (0.00-0.04) X 10*3/uL Neutrophils # 15.10 H (1.80-7.70) X 10*3/uL Lymphocytes # 0.39 L (0.90-5.00) X 10*3/uL Eosinophils # 0 L (0.04-0.35) X 10*3/uL Potassium 3.4 L (3.5-5.5) mmol/L Anion Gap 19.20 H (10.00-18.00) mmol/L BUN/Creatinine Ratio 28.67 H (12.00-20.00) Ratio Glucose 222 H (70-110) mg/dL POC Glucose (mg/dL) (75-99) mg/dL Calcium 7.7 L (8.7-10.3) mg/dL Magnesium (1.5-2.4) mg/dL Troponin I 0.102 H* (0.000-0.034) ng/mL Procalcitonin (0.02-0.09) ng/mL 12/04/21 12/04/21 12/04/21 Range/Units 04:17 07:49 11:37 WBC (4.50-10.00) X 10*3/uL RBC (4.10-5.20) X 10*6/uL Hgb (12.0-15.0) g/dL Hct (37.2-46.3) % MCHC (32.0-37.0) g/dL RDW (11.5-14.5) % Immature Gran # (0.00-0.04) X 10*3/uL Neutrophils # (1.80-7.70) X 10*3/uL Lymphocytes # (0.90-5.00) X 10*3/uL Eosinophils # (0.04-0.35) X 10*3/uL Potassium (3.5-5.5) mmol/L Anion Gap (10.00-18.00) mmol/L BUN/Creatinine Ratio (12.00-20.00) Ratio Glucose (70-110) mg/dL POC Glucose (mg/dL) 315 H 260 H (75-99) mg/dL Calcium (8.7-10.3) mg/dL Magnesium 1.4 L (1.5-2.4) mg/dL Troponin I (0.000-0.034) ng/mL Procalcitonin (0.02-0.09) ng/mL 12/04/21 Range/Units 12:05 WBC (4.50-10.00) X 10*3/uL RBC (4.10-5.20) X 10*6/uL Hgb (12.0-15.0) g/dL Hct (37.2-46.3) % MCHC (32.0-37.0) g/dL RDW (11.5-14.5) % Immature Gran # (0.00-0.04) X 10*3/uL Neutrophils # (1.80-7.70) X 10*3/uL Lymphocytes # (0.90-5.00) X 10*3/uL Eosinophils # (0.04-0.35) X 10*3/uL Potassium (3.5-5.5) mmol/L Anion Gap (10.00-18.00) mmol/L BUN/Creatinine Ratio (12.00-20.00) Ratio Glucose (70-110) mg/dL POC Glucose (mg/dL) (75-99) mg/dL Calcium (8.7-10.3) mg/dL Magnesium (1.5-2.4) mg/dL Troponin I 0.063 H* (0.000-0.034) ng/mL Procalcitonin (0.02-0.09) ng/mL Microbiology - Last 24 Hours (Table) 12/03/21 12:04 Blood Culture - Preliminary Blood No Growth after 24 hours 12/02/21 19:55 Blood Culture - Preliminary Blood No Growth after 24 hours 12/02/21 20:44 Blood Culture - Preliminary Blood No Growth after 24 hours Assessment and Plan Plan: Assessment: #1. Acute hypoxic respiratory failure related to acute exacerbation of systolic CHF, and possibility of aspiration pneumonia is also being considered, patient tested negative for COVID-19. Calcitonin level came back elevated, patient remains on Zosyn, IV steroids and Lasix. Improved on today's exam, off BiPAP support and down to 5 L of oxygen on the nasal cannula. #2. Elevated troponin, rule out possibility of non-ST elevated myocardial infarction, please refer to the cardiology consultation note #3. Rule out possibility of aspiration, consult speech therapy, sister reports episodes of vomiting on Friday prior to coming into the hospital that may have contributed to aspiration pneumonia #4. History of previous non-ST elevated myocardial infarction in October 2021 #5. 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 History of mild intermittent bronchial asthma #7. History of obstructive sleep apnea on CPAP in the outpatient setting #8. Hypertension #9. Hyperlipidemia #10. History of gout #11. Diabetes mellitus type 2 Plan: Patient is clinically much more improved on today's exam breathing much more comfortably Off BiPAP support, may continue utilizing BiPAP support as needed Currently on 5 L of oxygen, Wean FiO2 down to keep O2 sats at or above 90% Continue with IV diuretics for another 24 hours Continue Zosyn, Continue IV steroids Cardiology consultation has been noted and appreciated Echocardiogram has been reviewed Follow-up chest x-ray in the morning Obtain speech evaluation We'll likely start weaning IV steroids tomorrow Increase activity as tolerated I performed a history & physical examination of the patient and discussed their management with my nurse practitioner, Roz Jacobo. I reviewed the nurse practitioner's note and agree with the documented findings and plan of care. Lung sounds are positive for diffuse rhonchi throughout the lung meredith. The fi ndings and the impression was discussed with the patient. I attest to the documentation by the nurse practitioner. Time with Patient: Less than 30
[2021-12-04 17:41] LABS: Glucose,Whole Blood 408 mg/dL (75-99)
[2021-12-04 20:08] LABS: Glucose,Whole Blood 365 mg/dL (75-99)
[2021-12-05] MEDS: methylPREDNISolone SOD SUCCI 125 MG/2 ML VIAL IV SCH ×4 (00:33→17:41)
[2021-12-05] MEDS: PIPERACILLIN-TAZOBACTAM 3.375 GM in SODIUM CHLORIDE 0.9% 100 ML IVPB SCH ×3 (00:34→16:05)
[2021-12-05] MEDS: POTASSIUM CHLORIDE ER 20 MEQ TAB.ER PO SCH ×3 (03:17→05:57)
[2021-12-05 07:02] LABS: Glucose,Whole Blood 311 mg/dL (75-99)
--- NOTE | 2021-12-05 08:01 | XR ---
EXAMINATION TYPE: XR chest 1V portable DATE OF EXAM: 12/05/2021 Comparison: 12/03/2021 Clinical History: 76-year-old female shortness of breath dyspnea Findings: Hyperinflation. Heart mildly enlarged. Diffuse interstitial and patchy groundglass changes show consi derable improvement from prior exam. Possible small left pleural effusion. Impression: COPD and mild cardiomegaly. Persistent but significantly improving bilateral airspace disease.
[2021-12-05] MEDS: MULTIVITAMINS, THERA 1 EACH TAB PO SCH (08:16)
[2021-12-05] MEDS: lisinopriL 5 MG TAB PO SCH (08:17)
[2021-12-05] MEDS: ASPIRIN 81 MG PO SCH (08:17)
[2021-12-05] MEDS: METOPROLOL TARTRATE 25 MG TAB PO SCH ×2 (08:17→21:39)
[2021-12-05] MEDS: SPIRONOLACTONE 25 MG TAB PO SCH (08:17)
[2021-12-05] MEDS: ATORVASTATIN 20 MG TAB PO SCH (08:17)
[2021-12-05] MEDS: metFORMIN 500 MG TAB PO SCH ×3 (08:17→17:42)
[2021-12-05] MEDS: PANTOPRAZOLE 40 MG TABLET PO SCH (08:17)
[2021-12-05] MEDS: FUROSEMIDE 10 MG/ML 4 ML VIAL IV SCH (08:18)
[2021-12-05] MEDS: SUCRALFATE 1 GM TAB PO SCH ×3 (08:18→17:42)
[2021-12-05] MEDS: INSULIN ASPART (NovoLOG) 100 UNIT/ML VIAL SQ SCH ×5 (08:18→21:40)
[2021-12-05] MEDS: APIXABAN 5 MG TAB PO SCH ×2 (08:18→21:39)
[2021-12-05] MEDS: CHOLECALCIFEROL 25 MCG (1000 IU) TABLET PO SCH (08:18)
[2021-12-05] MEDS: IPRATROPIUM-ALBUTEROL 3 ML NEB INHALATION SCH ×3 (08:20→20:23)
[2021-12-05] MEDS: FORMOTEROL FUMARATE 20 MCG/2 ML NEBU INHALATION SCH ×2 (08:20→20:23)
[2021-12-05 09:12] LABS: HCT 27.2 % (37.2-46.3); HGB 8.6 g/dL (12.0-15.0); MCH 29.6 pg (27.0-32.0); MCHC 31.6 g/dL (32.0-37.0); MCV 93.5 fL (80.0-97.0); Mean Platelet Volume 10.3 fL (9.5-12.2); NRBC Per 100 WBC 0 /100 WBCS (0.0-0.0); Platelet Count 321 X 10*3/uL (140-440); RBC 2.91 X 10*6/uL (4.10-5.20); RDW 17.6 % (11.5-14.5); WBC 21.19 X 10*3/uL (4.50-10.00)
[2021-12-05 09:21] LABS: African American GFR (CKD) 76.6 (60.0-200.0); Anion Gap 13.2 mmol/L (10.00-18.00); BUN/Creat Ratio 32.59 Ratio (12.00-20.00); Blood Urea Nitrogen 27.7 mg/dL (9.0-27.0); Calcium 7.9 mg/dL (8.7-10.3); Carbon Dioxide 24.9 mmol/L (20.0-27.5); Magnesium 2.5 mg/dL (1.5-2.4); Non-African American GFR(CKD) 66.1 (60.0-200.0); Potassium 3.3 mmol/L (3.5-5.5)
[2021-12-05 10:03] LABS: Basophils # (A) 0.04 X 10*3/uL (0.00-0.10); Basophils % (A) 0.2 %; Eosinophils # (A) 0 X 10*3/uL (0.04-0.35); Eosinophils % (A) 0 %; Immature Grans, Automated 0.9 %; Lymphocytes # (A) 0.33 X 10*3/uL (0.90-5.00); Lymphocytes % (A) 1.6 %; Monocytes # (A) 0.36 X 10*3/uL (0.20-1.00); Monocytes % (A) 1.7 %; Neutrophils # (A) 20.27 X 10*3/uL (1.80-7.70); Neutrophils % (A) 95.6 %
--- NOTE | 2021-12-05 10:46 | P.PN ---
Subjective This is a 76-year-old female patient with past medical history of nonischemic cardiomyopathy, Takotsubo syndrome, hypertension, diabetes mellitus type 2, obstructive sleep apnea, Asthma, paroxysmal atrial fibrillation. She follows with Dr. Coelho. We are on consultation for congestive heart failure and elevated troponin. She presented to the emergency department with shortness of breath, cough, low grade fevers, and dyspnea on exertion. Limited echocardiogram revealed an EF of 2530%, with apical LV wall motion hypokinesis, mild to moderate pulmonary hypertension RVSP 47mmHg, small generalized pericardial effusion In October 2021, patient presented to the hospital with severe shortness of breath and some chest discomfort. She was found to have dynamic EKG changes anteriorly with mildly elevated troponin. Patient underwent cardiac catheterization which revealed normal coronary arteries with an elevated LVEDP of 25-30. She underwent left ventriculogram which revealed akinesis of the anterior apical and inferoapical wall consistent with Takotsubo syndrome. Echocardiogram revealed EF 20-25%. 12/05/2021 Patient seen and examined at bedside, her breathing has improved from admission. Vital signs are stable. She continues to have a cough. She is off of BIPAP, on 5-6L nasal cannula. I/Os documented with 1400mL output over the past 24 hours. Her troponin is downtrending. potassium has improved. Kidney function is stable. WBC 21, Hgb 8.6. Sodium 141, K 3.6. BUN 27, sCr 0.9. She is currently maintained on IV Lasix 40mg BID, Duonebs, IV Zosyn, IV steroids, Eliquis 5 mg twice a day, aspirin 81 mg daily, atorvastatin 20 mg daily, lisinopril 5 mg daily, metoprolol tartrate 25 mg twice a day, aspirin lactone 25 mg daily PHYSICAL EXAMINATION Vitals: Reviewed CONSTITUTIONAL: No acute distress HEENT: Neck Supple. No JVD. CHEST EXAMINATION: Lungs are diminished to auscultation. No chest wall tend erness is noted on palpation or with deep breathing. HEART EXAMINATION: Regular rate and rhythm. S1, S2 heard. ABDOMEN: Soft, nontender. Positive bowel sounds. EXTREMITIES: 2+ peripheral pulses, mild bilaterally lower extremity edema and no calf tenderness. NEUROLOGIC EXAMINATION: Patient is awake, alert and oriented x3. ASSESSMENT Shortness of breath, could be a combination of systolic heart failure and pneumonia, appears to be more pulmonary etiology, worsening multifocal opacities on chest xray Elevated troponin, likely due to type II [place] secondary to hypoxia,supply and demand mismatch Acute on chronic systolic heart failure Takotsubo syndrome EKG changes with worsened deep T waves, EKG changes can be seen commonly with Takotsubo's with echo reviewed and echo findings classic for Takotsubo's Hypokalemia Hypomagnesemia Lactic acidosis Leukocytosis Prolonged QT History of hypertension Type 2 Diabetes Obstructive sleep apnea Asthma Paroxysmal atrial fibrillation on Eliquis PLAN From a cardiolgoy perspective, suspect a reoccurence of Takotsubo's that was likely exacerbated by acute illness, what appears to be acute pneumonia with recent SOB, cough, low grade fevers at home. Continue supportive care, optimization of heart failure regimen and diuresis. No evidence of aspiration. We will continue IV Diuresis for additional 24 hours. Monitor I/Os, daily weights, renal function and electrolytes Continue home cardiac medications Avoid prolonged Qt medications Pulmonary following, appreciate recs Further recommendations based on clinical course Nurse Practitioner note has been reviewed, I agree with a documented findings and plan of care. Patient was seen and examined. Objective - Vital Signs Vital signs: Vital Signs Temp 97.8 F 12/05/21 08:00 Pulse 89 12/05/21 08:32 Resp 18 12/05/21 08:00 BP 155/63 12/05/21 08:00 Pulse Ox 95 12/05/21 08:00 Intake & Output 12/04/21 12/05/21 12/05/21 18:59 06:59 18:59 Output Total 900 500 Balance -900 -500 Weight 49.442 kg Output: Urine 900 500 Other: Voiding Method Indwelling Catheter Indwelling Catheter # Bowel Movements 1 - Labs CBC & Chem 7: 12/05/21 04:35 12/05/21 07:32 Labs: Abnormal Lab Results - Last 24 Hours (Table) 12/04/21 12/04/21 12/04/21 Range/Units 04:17 11:37 12:05 WBC (4.50-10.00) X 10*3/uL RBC (4.10-5.20) X 10*6/uL Hgb (12.0-15.0) g/dL Hct (37.2-46.3) % MCHC (32.0-37.0) g/dL RDW (11.5-14.5) % Immature Gran # (0.00-0.04) X 10*3/uL Neutrophils # (1.80-7.70) X 10*3/uL Lymphocytes # (0.90-5.00) X 10*3/uL Eosinophils # (0.04-0.35) X 10*3/uL Potassium (3.5-5.5) mmol/L BUN (9.0-27.0) mg/dL BUN/Creatinine Ratio (12.00-20.00) Ratio Glucose (70-110) mg/dL POC Glucose (mg/dL) 260 H (75-99) mg/dL Calcium (8.7-10.3) mg/dL Magnesium 1.4 L (1.5-2.4) mg/dL Troponin I 0.063 H* (0.000-0.034) ng/mL 12/04/21 12/04/21 12/04/21 Range/Units 16:56 17:40 20:06 WBC (4.50-10.00) X 10*3/uL RBC (4.10-5.20) X 10*6/uL Hgb (12.0-15.0) g/dL Hct (37.2-46.3) % MCHC (32.0-37.0) g/dL RDW (11.5-14.5) % Immature Gran # (0.00-0.04) X 10*3/uL Neutrophils # (1.80-7.70) X 10*3/uL Lymphocytes # (0.90-5.00) X 10*3/uL Eosinophils # (0.04-0.35) X 10*3/uL Potassium 2.9 L (3.5-5.5) mmol/L BUN (9.0-27.0) mg/dL BUN/Creatinine Ratio (12.00-20.00) Ratio Glucose (70-110) mg/dL POC Glucose (mg/dL) 408 H 365 H (75-99) mg/dL Calcium (8.7-10.3) mg/dL Magnesium (1.5-2.4) mg/dL Troponin I (0.000-0.034) ng/mL 12/05/21 12/05/2112/05/22 Range/Units 04:35 04:35 07:01 WBC 21.19 H (4.50-10.00) X 10*3/uL RBC 2.91 L (4.10-5.20) X 10*6/uL Hgb 8.6 L (12.0-15.0) g/dL Hct 27.2 L (37.2-46.3) % MCHC 31.6 L (32.0-37.0) g/dL RDW 17.6 H (11.5-14.5) % Immature Gran # 0.19 H (0.00-0.04) X 10*3/uL Neutrophils # 20.27 H (1.80-7.70) X 10*3/uL Lymphocytes # 0.33 L (0.90-5.00) X 10*3/uL Eosinophils # 0 L (0.04-0.35) X 10*3/uL Potassium 3.3 L (3.5-5.5) mmol/L BUN 27.7 H (9.0-27.0) mg/dL BUN/Creatinine Ratio 32.59 H (12.00-20.00) Ratio Glucose 230 H (70-110) mg/dL POC Glucose (mg/dL) 311 H (75-99) mg/dL Calcium 7.9 L (8.7-10.3) mg/dL Magnesium 2.5 H (1.5-2.4) mg/dL Troponin I (0.000-0.034) ng/mL Microbiology - Last 24 Hours (Table) 12/02/21 20:44 Blood Culture - Preliminary Blood No Growth after 48 hours 12/02/21 19:55 Blood Culture - Preliminary Blood No Growth after 48 hours 12/03/21 12:04 Blood Culture - Preliminary Blood No Growth after 24 hours
[2021-12-05 11:52] LABS: Glucose,Whole Blood 281 mg/dL (75-99)
[2021-12-05] MEDS ORDERED: Potassium Replacement Protocol 1 EACH MISC MISCELLANE PRN ×2 (14:15→18:15)
--- NOTE | 2021-12-05 14:19 | FL ---
EXAMINATION TYPE: FL barium swallow w video DATE OF EXAM: 12/05/2021 CLINICAL HISTORY: 76-year-old female with pneumonia, possible aspiration. TECHNIQUE: Deglutition study is performed utilizing thin liquid barium, honey and nectar thick liqui d barium, barium thick applesauce, and barium coated cracker. COMPARISON: None. Total fluoroscopy time: 2 minutes 10 seconds. Total images: None. Real-time fluoroscopy support was provided to speech pathology. FINDINGS: Swallow initiation was mildly delayed with bolus free spilling to the level of the vallecula. The or al and pharyngeal phases show satisfactory initiation and propagation with all modalities tested. The patient is edentulous but still managed to masticate. There is no evidence of penetration or aspirat ion with any modality tested. IMPRESSION: Functional swallow. Please refer to speech therapist notes for further details if necessary.
--- NOTE | 2021-12-05 14:29 | P.PN ---
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 fib, with a recent admission in October 2021 for acute non-ST elevated myocardial infarction. Patient came in to the emergency department on 12/02/2021 by ambulance for evaluation of shortness of breath, cough, diaphoresis and increased work of breathing. Patient had O2 saturations at 96%. She normally does not wear oxygen at home, no history of COPD, patient is status post 2 vaccines for COVID 19 PCR but has not had a booster. Denies any fevers at home. She tested negative for COVID 19. Chest x-ray shows pulmonary edema and pleural effusion fluid which has increased compared to old exam and is consistent with congestive heart failure. Chest x-ray shows sinus rhythm with PACs. Initial labs showed a white blood count of 13.4, hemoglobin of 9.5, INR of 1.0, sodium is 135, potassium is 2.4, chloride is 101, CO2 is 25, BUN is 11, creatinine 0.53, lactic acid was 2.8, magnesium was 1.2, troponin was 0.015, and subsequently increased to 0.244, CRP was 17.4, AST and ALT were mildly elevated at 39 and 35 respectively, proBNP came back positive at 2370, urinalysis showed no evidence of infection. Patient given a dose of IV Lasix in the emergency department, in view of increased work of breathing she was placed on BiPAP support and this morning she is on BiPAP with pressures of 12 and 5 and FiO2 of 100%. She is tachypneic, lung sounds are positive for diffuse coarse rhonchi. Blood gas this morning shows pO2 of 205, pCO2 50, and pH of 7.23. She was given some IV fluids in the ER for elevated lactic acid, currently IV fluids have been discontinued, patient was given Lasix 40 mg IV push, catheter has been placed, patient started to increase, she is feeling better. Echocardiogram will be completed, patient is suspected to have aspiration related pneumonia, and Zosyn will be added for empiric antibiotic coverage. On 12/04/2021 patient seen in follow-up on medical surgical floor. She is breathing much more comfortably today, she is off BiPAP support, she is currently on 5 L of oxygen pulse ox is 95%. Hemodynamic stable, afebrile. No complaints of chest pain, lung sounds reveal crackles at bilateral bases, she sounds much less congested on today's exam. Her sister is at the bedside, and she reports that the patient was coughing and throwing up on Friday, possibility of aspiration pneumonia is considered. We'll cover the patient with Zosyn for empiric antibiotic coverage, she also remains on IV Solu-Medrol 60 mg every 6 hours, and IV diuretics Lasix 40 mg every 12 hours. She is in -900 mL of fluid balance over the last 24 hours. Follow-up chest x-ray will be ordered for tomorrow. Echocardiogram has been completed showing EF between 25 and 30% slightly improved from previous echocardiogram. There was a small generalized pericardial effusion. There is mild tricuspid regurgitation, mild to moderate pulmonary hypertension with right-sided pressure of 47.14 mmHg. Blood cultures have shown no growth. His labs have been reviewed, her white blood cell count is 15.8, hemoglobin is 9.7, sodium is 144, potassium is 3.4, anion gap was 19, BUN is 17 and creatinine 0.6, her second third and fourth sets of troponins came back elevated at 0.244, 0.102, and 0.063. Cardiology is following. ProCalcitonin level also came back elevated at 1.11 On 12/05/2021 patient seen in follow-up on medical surgical floor. She is awake and alert, in no acute distress, she is sitting up in a recliner, her sister is at the bedside, she is breathing quite comfortably, lung sounds are diminished, no rhonchi or wheezing were auscultated on today's exam, she is currently on 6 L of oxygen, her pulse ox is about 90%, she remains on IV diuretics Lasix 40 mg twice daily, she remains on empiric antibiotics with Zosyn for possibility of aspiration related pneumonia, she remains on nebulized bronchodilators and IV steroids with Solu-Medrol 60 mg every 6 hours, apparently patient passed a bedside evaluation however in view of her fast eating habits she is suspected to be aspirating from time to time. Today's chest x-ray has been reviewed showing persistent but significantly improving bilateral airspace disease. His labs have been reviewed, her white blood cell count is 21.1, hemoglobin is 8.6, electrolytes and renal profile were unremarkable, she is in -1.4 L net fluid balance over the last 24 hours, no lower extremity edema. Objective - Vital Signs Vital signs: Vital Signs Temp 97.8 F 12/05/21 08:00 Pulse 90 12/05/21 12:14 Resp 18 12/05/21 08:00 BP 155/63 12/05/21 08:00 Pulse Ox 95 12/05/21 08:00 Intake & Output 12/04/21 12/05/21 12/05/21 18:59 06:59 18:59 Output Total 900 500 Balance -900 -500 Weight 49.442 kg Output: Urine 900 500 Other: Voiding Method Indwelling Catheter Indwelling Catheter # Bowel Movements 1 - Exam GENERAL EXAM: Alert, pleasant, 76-year-old white female, on 4 L of oxygen the pulse ox of 95% dyspneic, more comfortable in no apparent distress. HEAD: Normocephalic/atraumatic. EYES: Normal reaction of pupils, equal size. Conjunctiva pink, sclera white. NOSE: Clear with pink turbinates. THROAT: No erythema or exudates. NECK: No masses, no JVD, no thyroid enlargement, no adenopathy. CHEST: No chest wall deformity. Symmetrical expansion. LUNGS: Equal air entry with diminished breath sounds bilaterally, no rhonchi or wheezing noted on today's exam CVS: Regular rate and rhythm, normal S1 and S2, no gallops, no murmurs, no rubs ABDOMEN: Soft, nontender. No hepatosplenomegaly, normal bowel sounds, no guarding or rigidity. EXTREMITIES: No clubbing, no edema, no cyanosis, 2+ pulses and upper and lower extremities. MUSCULOSKELETAL: Muscle strength and tone normal. SPINE: No scoliosis or deformity SKIN: No rashes CENTRAL NERVOUS SYSTEM: Alert and oriented -3. No focal deficits, tone is normal in all 4 extremities. PSYCHIATRIC: Alert and oriented -3. Appropriate affect. Intact judgment and insight. - Labs CBC & Chem 7: 12/05/21 04:35 12/05/21 07:32 Labs: Abnormal Lab Results - Last 24 Hours (Table) 12/04/21 12/04/21 12/04/21 Range/Units 16:56 17:40 20:06 WBC (4.50-10.00) X 10*3/uL RBC (4.10-5.20) X 10*6/uL Hgb (12.0-15.0) g/dL Hct (37.2-46.3) % MCHC (32.0-37.0) g/dL RDW (11.5-14.5) % Immature Gran # (0.00-0.04) X 10*3/uL Neutrophils # (1.80-7.70) X 10*3/uL Lymphocytes # (0.90-5.00) X 10*3/uL Eosinophils # (0.04-0.35) X 10*3/uL Potassium 2.9 L (3.5-5.5) mmol/L BUN (9.0-27.0) mg/dL BUN/Creatinine Ratio (12.00-20.00) Ratio Glucose (70-110) mg/dL POC Glucose (mg/dL) 408 H 365 H (75-99) mg/dL Calcium (8.7-10.3) mg/dL Magnesium (1.5-2.4) mg/dL 12/05/21 12/05/21 12/05/21 Range/Units 04:35 04:35 07:01 WBC 21.19 H (4.50-10.00) X 10*3/uL RBC 2.91 L (4.10-5.20) X 10*6/uL Hgb 8.6 L (12.0-15.0) g/dL Hct 27.2 L (37.2-46.3) % MCHC 31.6 L (32.0-37.0) g/dL RDW 17.6 H (11.5-14.5) % Immature Gran # 0.19 H (0.00-0.04) X 10*3/uL Neutrophils # 20.27 H (1.80-7.70) X 10*3/uL Lymphocytes # 0.33 L (0.90-5.00) X 10*3/uL Eosinophils # 0 L (0.04-0.35) X 10*3/uL Potassium 3.3 L (3.5-5.5) mmol/L BUN 27.7 H (9.0-27.0) mg/dL BUN/Creatinine Ratio 32.59 H (12.00-20.00) Ratio Glucose 230 H (70-110) mg/dL POC Glucose (mg/dL) 311 H (75-99) mg/dL Calcium 7.9 L (8.7-10.3) mg/dL Magnesium 2.5 H (1.5-2.4) mg/dL 12/05/21 Range/Units 11:50 WBC (4.50-10.00) X 10*3/uL RBC (4.10-5.20) X 10*6/uL Hgb (12.0-15.0) g/dL Hct (37.2-46.3) % MCHC (32.0-37.0) g/dL RDW (11.5-14.5) % Immature Gran # (0.00-0.04) X 10*3/uL Neutrophils # (1.80-7.70) X 10*3/uL Lymphocytes # (0.90-5.00) X 10*3/uL Eosinophils # (0.04-0.35) X 10*3/uL Potassium (3.5-5.5) mmol/L BUN (9.0-27.0) mg/dL BUN/Creatinine Ratio (12.00-20.00) Ratio Glucose (70-110) mg/dL POC Glucose (mg/dL) 281 H (75-99) mg/dL Calcium (8.7-10.3) mg/dL Magnesium (1.5-2.4) mg/dL Microbiology - Last 24 Hours (Table) 12/03/21 12:04 Blood Culture - Preliminary Blood No Growth after 48 hours 12/02/21 20:44 Blood Culture - Preliminary Blood No Growth after 48 hours 12/02/21 19:55 Blood Culture - Preliminary Blood No Growth after 48 hours Assessment and Plan Plan: Assessment: #1. Acute hypoxic respiratory failure related to acute exacerbation of systolic CHF, and possibility of aspiration pneumonia is also being considered, patient tested negative for COVID-19. Calcitonin level came back elevated, patient remains on Zosyn, IV steroids and Lasix. Improved on today's exam, off BiPAP support and down to 5 L of oxygen on the nasal cannula. #2. Elevated troponin, rule out possibility of non-ST elevated myocardial infarction, please refer to the cardiology consultation note #3. Rule out possibility of aspiration, consult speech therapy, sister reports episodes of vomiting on Friday prior to coming into the hospital that may have contributed to aspiration pneumonia #4. History of previous non-ST elevated myocardial infarction in October 2021 #5. 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 History of mild intermittent bronchial asthma #7. History of obstructive sleep apnea on CPAP in the outpatient setting #8. Hypertension #9. Hyperlipidemia #10. History of gout #11. Diabetes mellitus type 2 Plan: Patient continues to improve No wheezing or congestion on today's exam Currently down to 5 L Did not require BiPAP support last night We'll switch to oral Lasix 40 mg twice daily Continue Zosyn and steroids We'll drop the IV Solu-Medrol to 40 mg every 8 hours Modified barium swallow to rule out possibility of aspiration Provide supervision and assistance with meals Patient is to sit up in chair for meals We'll continue to follow her clinical course Today's chest x-ray has been reviewed showing significant improvement in bilateral infiltrates I performed a history & physical examination of the patient and discussed their management with my nurse practitioner, Roz Jacobo. I reviewed the nurse pr actitioner's note and agree with the documented findings and plan of care. Lung sounds are positive for diffuse rhonchi throughout the lung meredith. The findings and the impression was discussed with the patient. I attest to the documentation by the nurse practitioner. Time with Patient: Less than 30
[2021-12-05] MEDS ORDERED: POTASSIUM CHLORIDE ER 20 MEQ TAB.ER PO SCH ×2 (15:00→19:00)
[2021-12-05] MEDS: FUROSEMIDE 40 MG TAB PO SCH (16:05)
[2021-12-05 16:48] LABS: Glucose,Whole Blood 395 mg/dL (75-99)
--- NOTE | 2021-12-05 16:56 | P.PN ---
Subjective Progress Note Date: 12/04/21 This is a 76-year-old female admitted with acute CHF exacerbation, possible aspiration pneumonia, acute hypoxic respiratory failure and possible NSTEMI. Troponins 0.015, 0.244, 0.102, 0.063. Followed by both pulmonary and cardiology. Pro-calcitonin elevated, 1.11. Afebrile. Continues on empiric Zosyn for potential aspiration pneumonia as patient had been throwing up over the weekend, along with nebulized bronchodilators and IV steroids. Diuresing well on Lasix IV push with 24-hour I&O reflecting a negative fluid balance. Echo reporting slight improvement ,EF 25-30% Less congestion with small generalized pericardial effusion, mild to moderate pulmonary hypertension, right-sided pressure of 47.1 4. weaned off of BiPAP, maintaining O2 sats in the 90s on 5 L nasal cannula. Potassium 2.9, magnesium 1.4 with replacement protocols in place. Objective - Vital Signs Vital signs: Vital Signs Temp 97.7 F 12/04/21 14:32 Pulse 92 12/04/21 14:32 Resp 14 12/04/21 14:32 BP 94/52 12/04/21 14:32 Pulse Ox 95 12/04/21 14:32 Intake & Output 12/03/21 12/04/21 12/04/21 18:59 06:59 18:59 Output Total 900 Balance -900 Weight 54.431 kg Output: Urine 900 Other: Voiding Method Indwelling Catheter Indwelling Catheter - Exam PHYSICAL EXAM: VITAL SIGNS: As above GENERAL: Sitting up in bed, respiratory effort mildly increased, no acute distress HEENT: Conjunctivae normal. eyes normal. Oral mucosa moist NECK: No JVD. No thyroid enlargement. No LNs CARDIOVASCULAR: S1, S2 regular.. No murmur RESPIRATION: Breath sounds diminished in the bases. Scattered rhonchi throughout ABDOMEN: Soft, nontender . No guarding. no masses palpable. No ascites, No hepatosplenomegaly.Bowel sounds heard. LEGS: No edema. no swelling PSYCHIATRY: Alert and oriented X3, mood and affect normal. NERVOUS SYSTEM: Cranial N 2-12 grossly normal. Moves all 4 limbs. No focal deficits. Strength and sensation grossly intact. Skin: Warm and dry ,no rash - Labs CBC & Chem 7: 12/05/21 04:35 12/05/21 07:32 Labs: Abnormal Lab Results - Last 24 Hours (Table) 12/03/21 12/03/21 12/03/21 Range/Units 12:04 17:12 20:35 WBC (4.50-10.00) X 10*3/uL RBC (4.10-5.20) X 10*6/uL Hgb (12.0-15.0) g/dL Hct (37.2-46.3) % MCHC (32.0-37.0) g/dL RDW (11.5-14.5) % Immature Gran # (0.00-0.04) X 10*3/uL Neutrophils # (1.80-7.70) X 10*3/uL Lymphocytes # (0.90-5.00) X 10*3/uL Eosinophils # (0.04-0.35) X 10*3/uL Potassium (3.5-5.5) mmol/L Anion Gap (10.00-18.00) mmol/L BUN/Creatinine Ratio (12.00-20.00) Ratio Glucose (70-110) mg/dL POC Glucose (mg/dL) 189 H 179 H (75-99) mg/dL Calcium (8.7-10.3) mg/dL Magnesium (1.5-2.4) mg/dL Troponin I (0.000-0.034) ng/mL Procalcitonin 1.11 H (0.02-0.09) ng/mL 12/04/21 12/04/21 12/04/21 Range/Units 04:17 04:17 04:17 WBC 15.88 H (4.50-10.00) X 10*3/uL RBC 3.20 L (4.10-5.20) X 10*6/uL Hgb 9.7 L (12.0-15.0) g/dL Hct 30.6 L (37.2-46.3) % MCHC 31.7 L (32.0-37.0) g/dL RDW 17.6 H (11.5-14.5) % Immature Gran # 0.10 H (0.00-0.04) X 10*3/uL Neutrophils # 15.10 H (1.80-7.70) X 10*3/uL Lymphocytes # 0.39 L (0.90-5.00) X 10*3/uL Eosinophils # 0 L (0.04-0.35) X 10*3/uL Potassium 3.4 L (3.5-5.5) mmol/L Anion Gap 19.20 H (10.00-18.00) mmol/L BUN/Creatinine Ratio 28.67 H (12.00-20.00) Ratio Glucose 222 H (70-110) mg/dL POC Glucose (mg/dL) (75-99) mg/dL Calcium 7.7 L (8.7-10.3) mg/dL Magnesium (1.5-2.4) mg/dL Troponin I 0.102 H* (0.000-0.034) ng/mL Procalcitonin (0.02-0.09) ng/mL 12/04/21 12/04/21 12/04/21 Range/Units 04:17 07:49 11:37 WBC (4.50-10.00) X 10*3/uL RBC (4.10-5.20) X 10*6/uL Hgb (12.0-15.0) g/dL Hct (37.2-46.3) % MCHC (32.0-37.0) g/dL RDW (11.5-14.5) % Immature Gran # (0.00-0.04) X 10*3/uL Neutrophils # (1.80-7.70) X 10*3/uL Lymphocytes # (0.90-5.00) X 10*3/uL Eosinophils # (0.04-0.35) X 10*3/uL Potassium (3.5-5.5) mmol/L Anion Gap (10.00-18.00) mmol/L BUN/Creatinine Ratio (12.00-20.00) Ratio Glucose (70-110) mg/dL POC Glucose (mg/dL) 315 H 260 H (75-99) mg/dL Calcium (8.7-10.3) mg/dL Magnesium 1.4 L (1.5-2.4) mg/dL Troponin I (0.000-0.034) ng/mL Procalcitonin (0.02-0.09) ng/mL 12/04/21 Range/Units 12:05 WBC (4.50-10.00) X 10*3/uL RBC (4.10-5.20) X 10*6/uL Hgb (12.0-15.0) g/dL Hct (37.2-46.3) % MCHC (32.0-37.0) g/dL RDW (11.5-14.5) % Immature Gran # (0.00-0.04) X 10*3/uL Neutrophils # (1.80-7.70) X 10*3/uL Lymphocytes # (0.90-5.00) X 10*3/uL Eosinophils # (0.04-0.35) X 10*3/uL Potassium (3.5-5.5) mmol/L Anion Gap (10.00-18.00) mmol/L BUN/Creatinine Ratio (12.00-20.00) Ratio Glucose (70-110) mg/dL POC Glucose (mg/dL) (75-99) mg/dL Calcium (8.7-10.3) mg/dL Magnesium (1.5-2.4) mg/dL Troponin I 0.063 H* (0.000-0.034) ng/mL Procalcitonin (0.02-0.09) ng/mL Microbiology - Last 24 Hours (Table) 12/03/21 12:04 Blood Culture - Preliminary Blood No Growth after 24 hours 12/02/21 19:55 Blood Culture - Preliminary Blood No Growth after 24 hours 12/02/21 20:44 Blood Culture - Preliminary Blood No Growth after 24 hours Assessment and Plan Assessment: Acute CHF exacerbation, systolic dysfunction Possible acute aspiration pneumonia Acute hypoxic respiratory failure secondary to all the above Elevated troponins, possible NSTEMI, history of nonischemic cardiomyopathy EF 20-25% 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 Current EF 25-30% Mild to moderate pulmonary hypertension History of paroxysmal atrial fibrillation Diabetes mellitus II Hypertension Hyperlipidemia Gastroesophageal reflux disease Obstructive Sleep apnea, with CPAP, BiPAP at home Anxiety Plan: Continue on current medication regime ,monitoring and symptomatic treatment. Maintain diuretics, aggressive pulmonary toileting with nebulized bronchodilators, IV steroids, antibiotics. Close monitoring of Accu-Cheks. MBS pending. The impression and plan of care has been dictated as directed. : I performed a history and examination of this patient, discussed the same with the dictator. I agree with the dictator's note ,documented as a scribe. Any additional findings or plans will be noted.
[2021-12-05] MEDS: INSULIN DETEMIR (LEVEMIR) 100 UNIT/ML SYR SQ SCH (18:28)
[2021-12-05 21:03] LABS: Glucose,Whole Blood 262 mg/dL (75-99)
[2021-12-05] MEDS: LATANOPROST 0.005% OPHTH DROPS 2.5 ML BTL RIGHT EYE SCH (21:40)
[2021-12-06] MEDS: PIPERACILLIN-TAZOBACTAM 3.375 GM in SODIUM CHLORIDE 0.9% 100 ML IVPB SCH ×2 (00:42→07:56)
[2021-12-06] MEDS: methylPREDNISolone SOD SUCCI 125 MG/2 ML VIAL IV SCH ×3 (00:42→12:37)
[2021-12-06 06:44] LABS: ALT 35 U/L (4-34); AST 24 U/L (14-36); African American GFR (CKD) 72 (>60 ml/min/1.73 sqM); Albumin 2.8 g/dL (3.5-5.0); Albumin/Globulin Ratio 1.1; Alkaline Phosphatase 69 U/L (38-126); Anion Gap 7 mmol/L; Blood Urea Nitrogen 39 mg/dL (7-17); Calcium 8.1 mg/dL (8.4-10.2); Carbon Dioxide 25 mmol/L (22-30); Chloride 110 mmol/L (98-107); Globulin 2.6 g/dL; Glucose 153 mg/dL (74-99); Non-African American GFR(CKD) 63 (>60 ml/min/1.73 sqM); Potassium 3.9 mmol/L (3.5-5.1); Sodium 142 mmol/L (137-145); Total Bilirubin 0.3 mg/dL (0.2-1.3); Total Protein 5.4 g/dL (6.3-8.2)
[2021-12-06 07:18] LABS: Glucose,Whole Blood 175 mg/dL (75-99)
[2021-12-06] MEDS: APIXABAN 5 MG TAB PO SCH (07:34)
[2021-12-06] MEDS: ATORVASTATIN 20 MG TAB PO SCH (07:34)
[2021-12-06] MEDS: MULTIVITAMINS, THERA 1 EACH TAB PO SCH (07:34)
[2021-12-06] MEDS: METOPROLOL TARTRATE 25 MG TAB PO SCH (07:34)
[2021-12-06] MEDS: SPIRONOLACTONE 25 MG TAB PO SCH (07:34)
[2021-12-06] MEDS: PANTOPRAZOLE 40 MG TABLET PO SCH (07:34)
[2021-12-06] MEDS: FUROSEMIDE 40 MG TAB PO SCH (07:34)
[2021-12-06] MEDS: lisinopriL 5 MG TAB PO SCH (07:34)
[2021-12-06] MEDS: ASPIRIN 81 MG PO SCH (07:34)
[2021-12-06] MEDS: metFORMIN 500 MG TAB PO SCH ×2 (07:34→12:02)
[2021-12-06] MEDS: CHOLECALCIFEROL 25 MCG (1000 IU) TABLET PO SCH (07:34)
[2021-12-06] MEDS: INSULIN ASPART (NovoLOG) 100 UNIT/ML VIAL SQ SCH ×4 (07:35→12:02)
[2021-12-06] MEDS: INSULIN DETEMIR (LEVEMIR) 100 UNIT/ML SYR SQ SCH (07:35)
[2021-12-06] MEDS: SUCRALFATE 1 GM TAB PO SCH ×2 (07:35→12:02)
[2021-12-06] MEDS: FORMOTEROL FUMARATE 20 MCG/2 ML NEBU INHALATION SCH (08:21)
[2021-12-06] MEDS: IPRATROPIUM-ALBUTEROL 3 ML NEB INHALATION SCH ×2 (08:21→12:49)
[2021-12-06 08:50] VITALS: BP 129/77; RESP 14; TEMP 97.7
[2021-12-06 09:43] LABS: Basophils # (A) 0.02 X 10*3/uL (0.00-0.10); Basophils % (A) 0.1 %; Eosinophils # (A) 0 X 10*3/uL (0.04-0.35); Eosinophils % (A) 0 %; HCT 26.8 % (37.2-46.3); HGB 8.4 g/dL (12.0-15.0); Immature Grans, Automated 1.1 %; Lymphocytes % (A) 2.4 %; MCH 29.7 pg (27.0-32.0); MCHC 31.3 g/dL (32.0-37.0); MCV 94.7 fL (80.0-97.0); Mean Platelet Volume 10.1 fL (9.5-12.2); Monocytes # (A) 0.23 X 10*3/uL (0.20-1.00); Monocytes % (A) 1.4 %; NRBC Per 100 WBC 0 /100 WBCS (0.0-0.0); Neutrophils # (A) 15.76 X 10*3/uL (1.80-7.70); Platelet Count 327 X 10*3/uL (140-440); RBC 2.83 X 10*6/uL (4.10-5.20); RDW 18.1 % (11.5-14.5)
--- NOTE | 2021-12-06 11:00 | P.PN ---
Subjective This is a 76-year-old female patient with past medical history of nonischemic cardiomyopathy, Takotsubo syndrome, hypertension, diabetes mellitus type 2, obstructive sleep apnea, Asthma, paroxysmal atrial fibrillation. She follows with Dr. Coelho. We are on consultation for congestive heart failure and elevated troponin. She presented to the emergency department with shortness of breath, cough, low grade fevers, and dyspnea on exertion. Limited echocardiogram revealed an EF of 2530%, with apical LV wall motion hypokinesis, mild to moderate pulmonary hypertension RVSP 47mmHg, small generalized pericardial effusion In October 2021, patient presented to the hospital with severe shortness of breath and some chest discomfort. She was found to have dynamic EKG changes anteriorly with mildly elevated troponin. Patient underwent cardiac catheterization which revealed normal coronary arteries with an elevated LVEDP of 25-30. She underwent left ventriculogram which revealed akinesis of the anterior apical and inferoapical wall consistent with Takotsubo syndrome. Echocardiogram revealed EF 20-25%. 12/06/2021 Patient seen and examined at bedside, she is up in the chair, her breathing has significantly improved from admission. She did not require BIPAP overnight. Her oxygen is being weaned she is currently on 3L. Vital signs are stable. She has been transitioned to PO Lasix. Her troponin is downtrending. potassium has improved. Kidney function is stable. IV steroids have been decreased Sodium 142, potassium 3.9, BUN 39, serum creatinine 0.8, albumin 2.8 She is currently maintained on PO Lasix 40mg BID, Duonebs, IV Zosyn, Eliquis 5 mg twice a day, aspirin 81 mg daily, atorvastatin 20 mg daily, lisinopril 5 mg daily, metoprolol tartrate 25 mg twice a day, spironolactone 25 mg daily PHYSICAL EXAMINATION Vitals: Reviewed CONSTITUTIONAL: No acute distress HEENT: Neck Supple. No JVD. CHEST EXAMINATION: Lungs are diminished to auscultation. No chest wall tenderness is noted on palpation or with deep breathing. HEART EXAMINATION: Regular rate and rhythm. S1, S2 heard. ABDOMEN: Soft, nontender. Positive bowel sounds. EXTREMITIES: 2+ peripheral pulses, no lower extremity edema and no calf tenderness. NEUROLOGIC EXAMINATION: Patient is awake, alert and oriented x3. ASSESSMENT Shortness of breath, could be a combination of systolic heart failure and pneumonia, appears to be more pulmonary etiology, worsening multifocal opacities on chest xray, elevated pro calcitonin, cough, low grade fevers at home Elevated troponin, likely due to type II IA secondary to hypoxia,supply and demand mismatch Acute on chronic systolic heart failure Takotsubo syndrome EKG changes with worsened deep T waves, EKG changes can be seen commonly with Takotsubo's with echo reviewed and echo findings classic for Takotsubo's Hypokalemia Hypomagnesemia Lactic acidosis Leukocytosis Prolonged QT History of hypertension Type 2 Diabetes Obstructive sleep apnea Asthma Paroxysmal atrial fibrillation on Eliquis PLAN -From a cardiolgoy perspective, suspect a reoccurence of Takotsubo's that was likely exacerbated by acute illness, what appears to be acute pneumonia with recent SOB, cough, low grade fevers at home. Continue supportive care, optimization of heart failure regimen. We will transition patient to PO Diuretics, Lasix 20mg daily. We will continue to hold amiodarone. Continue home cardiac medications -Patient being weaned off oxygen today, if remains stable, ok to discharge from cardiology perspective on current regimen and follow up with Dr. Coelho outpatient. Nurse Practitioner note has been reviewed, I agree with a documented findings and plan of care. Patient was seen and examined. Objective - Vital Signs Vital signs: Vital Signs Temp 97.8 F 12/06/21 02:00 Pulse 82 12/06/21 02:00 Resp 18 12/06/21 02:00 BP 117/68 12/06/21 02:00 Pulse Ox 99 12/06/21 02:00 Intake & Output 12/05/21 12/06/21 12/06/21 18:59 06:59 18:59 Weight 52.7 kg Other: Voiding Method Toilet Toilet - Labs CBC & Chem 7: 12/06/21 06:09 12/06/21 06:09 Labs: Abnormal Lab Results - Last 24 Hours (Table) 12/05/21 12/05/21 12/05/21 Range/Units 04:35 04:35 11:50 WBC 21.19 H (4.50-10.00) X 10*3/uL RBC 2.91 L (4.10-5.20) X 10*6/uL Hgb 8.6 L (12.0-15.0) g/dL Hct 27.2 L (37.2-46.3) % MCHC 31.6 L (32.0-37.0) g/dL RDW 17.6 H (11.5-14.5) % Immature Gran # 0.19 H (0.00-0.04) X 10*3/uL Neutrophils # 20.27 H (1.80-7.70) X 10*3/uL Lymphocytes # 0.33 L (0.90-5.00) X 10*3/uL Eosinophils # 0 L (0.04-0.35) X 10*3/uL Potassium 3.3 L (3.5-5.5) mmol/L Chloride (98-107) mmol/L BUN 27.7 H (9.0-27.0) mg/dL BUN/Creatinine Ratio 32.59 H (12.00-20.00) Ratio Glucose 230 H (70-110) mg/dL POC Glucose (mg/dL) 281 H (75-99) mg/dL Calcium 7.9 L (8.7-10.3) mg/dL Magnesium 2.5 H (1.5-2.4) mg/dL ALT (4-34) U/L Total Protein (6.3-8.2) g/dL Albumin (3.5-5.0) g/dL 12/05/21 12/05/21 12/06/21 Range/Units 16:48 21:01 06:09 WBC (4.50-10.00) X 10*3/uL RBC (4.10-5.20) X 10*6/uL Hgb (12.0-15.0) g/dL Hct (37.2-46.3) % MCHC (32.0-37.0) g/dL RDW (11.5-14.5) % Immature Gran # (0.00-0.04) X 10*3/uL Neutrophils # (1.80-7.70) X 10*3/uL Lymphocytes # (0.90-5.00) X 10*3/uL Eosinophils # (0.04-0.35) X 10*3/uL Potassium (3.5-5.5) mmol/L Chloride 110 H (98-107) mmol/L BUN 39 H (9.0-27.0) mg/dL BUN/Creatinine Ratio (12.00-20.00) Ratio Glucose 153 H (70-110) mg/dL POC Glucose (mg/dL) 395 H 262 H (75-99) mg/dL Calcium 8.1 L (8.7-10.3) mg/dL Magnesium (1.5-2.4) mg/dL ALT 35 H (4-34) U/L Total Protein 5.4 L (6.3-8.2) g/dL Albumin 2.8 L (3.5-5.0) g/dL 12/06/21 Range/Units 07:16 WBC (4.50-10.00) X 10*3/uL RBC (4.10-5.20) X 10*6/uL Hgb (12.0-15.0) g/dL Hct (37.2-46.3) % MCHC (32.0-37.0) g/dL RDW (11.5-14.5) % Immature Gran # (0.00-0.04) X 10*3/uL Neutrophils # (1.80-7.70) X 10*3/uL Lymphocytes # (0.90-5.00) X 10*3/uL Eosinophils # (0.04-0.35) X 10*3/uL Potassium (3.5-5.5) mmol/L Chloride (98-107) mmol/L BUN (9.0-27.0) mg/dL BUN/Creatinine Ratio (12.00-20.00) Ratio Glucose (70-110) mg/dL POC Glucose (mg/dL) 175 H (75-99) mg/dL Calcium (8.7-10.3) mg/dL Magnesium (1.5-2.4) mg/dL ALT (4-34) U/L Total Protein (6.3-8.2) g/dL Albumin (3.5-5.0) g/dL Microbiology - Last 24 Hours (Table) 12/02/21 19:55 Blood Culture - Preliminary Blood No Growth after 72 hours 12/02/21 20:44 Blood Culture - Preliminary Blood No Growth after 72 hours 12/03/21 12:04 Blood Culture - Preliminary Blood No Growth after 48 hours
[2021-12-06 11:31] LABS: Glucose,Whole Blood 154 mg/dL (75-99)
[2021-12-06 13:03] VITALS: PULSE 88
--- NOTE | 2021-12-06 15:02 | P.PN ---
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 fib, with a recent admission in October 2021 for acute non-ST elevated myocardial infarction. Patient came in to the emergency department on 12/02/2021 by ambulance for evaluation of shortness of breath, cough, diaphoresis and increased work of breathing. Patient had O2 saturations at 96%. She normally does not wear oxygen at home, no history of COPD, patient is status post 2 vaccines for COVID 19 PCR but has not had a booster. Denies any fevers at home. She tested negative for COVID 19. Chest x-ray shows pulmonary edema and pleural effusion fluid which has increased compared to old exam and is consistent with congestive heart failure. Chest x-ray shows sinus rhythm with PACs. Initial labs showed a white blood count of 13.4, hemoglobin of 9.5, INR of 1.0, sodium is 135, potassium is 2.4, chloride is 101, CO2 is 25, BUN is 11, creatinine 0.53, lactic acid was 2.8, magnesium was 1.2, troponin was 0.015, and subsequently increased to 0.244, CRP was 17.4, AST and ALT were mildly elevated at 39 and 35 respectively, proBNP came back positive at 2370, urinalysis showed no evidence of infection. Patient given a dose of IV Lasix in the emergency department, in view of increased work of breathing she was placed on BiPAP support and this morning she is on BiPAP with pressures of 12 and 5 and FiO2 of 100%. She is tachypneic, lung sounds are positive for diffuse coarse rhonchi. Blood gas this morning shows pO2 of 205, pCO2 50, and pH of 7.23. She was given some IV fluids in the ER for elevated lactic acid, currently IV fluids have been discontinued, patient was given Lasix 40 mg IV push, catheter has been placed, patient started to increase, she is feeling better. Echocardiogram will be completed, patient is suspected to have aspiration related pneumonia, and Zosyn will be added for empiric antibiotic coverage. On 12/04/2021 patient seen in follow-up on medical surgical floor. She is breathing much more comfortably today, she is off BiPAP support, she is currently on 5 L of oxygen pulse ox is 95%. Hemodynamic stable, afebrile. No complaints of chest pain, lung sounds reveal crackles at bilateral bases, she sounds much less congested on today's exam. Her sister is at the bedside, and she reports that the patient was coughing and throwing up on Friday, possibility of aspiration pneumonia is considered. We'll cover the patient with Zosyn for empiric antibiotic coverage, she also remains on IV Solu-Medrol 60 mg every 6 hours, and IV diuretics Lasix 40 mg every 12 hours. She is in -900 mL of fluid balance over the last 24 hours. Follow-up chest x-ray will be ordered for tomorrow. Echocardiogram has been completed showing EF between 25 and 30% slightly improved from previous echocardiogram. There was a small generalized pericardial effusion. There is mild tricuspid regurgitation, mild to moderate pulmonary hypertension with right-sided pressure of 47.14 mmHg. Blood cultures have shown no growth. His labs have been reviewed, her white blood cell count is 15.8, hemoglobin is 9.7, sodium is 144, potassium is 3.4, anion gap was 19, BUN is 17 and creatinine 0.6, her second third and fourth sets of troponins came back elevated at 0.244, 0.102, and 0.063. Cardiology is following. ProCalcitonin level also came back elevated at 1.11 On 12/05/2021 patient seen in follow-up on medical surgical floor. She is awake and alert, in no acute distress, she is sitting up in a recliner, her sister is at the bedside, she is breathing quite comfortably, lung sounds are diminished, no rhonchi or wheezing were auscultated on today's exam, she is currently on 6 L of oxygen, her pulse ox is about 90%, she remains on IV diuretics Lasix 40 mg twice daily, she remains on empiric antibiotics with Zosyn for possibility of aspiration related pneumonia, she remains on nebulized bronchodilators and IV steroids with Solu-Medrol 60 mg every 6 hours, apparently patient passed a bedside evaluation however in view of her fast eating habits she is suspected to be aspirating from time to time. Today's chest x-ray has been reviewed showing persistent but significantly improving bilateral airspace disease. His labs have been reviewed, her white blood cell count is 21.1, hemoglobin is 8.6, electrolytes and renal profile were unremarkable, she is in -1.4 L net fluid balance over the last 24 hours, no lower extremity edema. On 12/06/2021 patient seen in follow-up on medical surgical floor. She is awake and alert, in no acute distress, she is currently on room air, home oxygen assessment has been completed, and patient maintained stable O2 saturations even with ambulation and maintain O2 sat of 92%. No acute events overnight, lung sounds are clear to auscultation today. Her Lasix had been transitioned to oral Lasix, no complaints of chest pain. No fever or chills, modified barium swallow has been completed showing mild delay of swallow initiation with bolus free spilling to the level of the vallecula, no evidence of penetration or aspira tion. Today's labs have been reviewed, with a count is improving and is down to 16.6, hemoglobin is stable compared to yesterday at 8.4, sodium is 142, potassium is 3.9, chloride is 110, CO2 is 25, he BUN is 39, creatinine 0.89. No fever or chills, pro-calcitonin level came back elevated at 1.11, supporting suspicion for aspiration pneumonia. Cultures have been negative, patient has been treated with empiric Zosyn for possibility of aspiration. Likely patient has significantly improved, she's been cleared by cardiology for discharge. From pulmonary perspective she is also stable for discharge Objective - Vital Signs Vital signs: Vital Signs Temp 97.7 F 12/06/21 07:46 Pulse 88 12/06/21 13:03 Resp 14 12/06/21 07:46 BP 129/77 12/06/21 07:46 Pulse Ox 92 L 12/06/21 11:55 Intake & Output 12/05/21 12/06/21 12/06/21 18:59 06:59 18:59 Weight 52.7 kg Other: Voiding Method Toilet Toilet - Exam GENERAL EXAM: Alert, pleasant, 76-year-old white female, on 4 L of oxygen the pulse ox of 95% dyspneic, more comfortable in no apparent distress. HEAD: Normocephalic/atraumatic. EYES: Normal reaction of pupils, equal size. Conjunctiva pink, sclera white. NOSE: Clear with pink turbinates. THROAT: No erythema or exudates. NECK: No masses, no JVD, no thyroid enlargement, no adenopathy. CHEST: No chest wall deformity. Symmetrical expansion. LUNGS: Equal air entry with diminished breath sounds bilaterally, no rhonchi or wheezing noted on today's exam CVS: Regular rate and rhythm, normal S1 and S2, no gallops, no murmurs, no rubs ABDOMEN: Soft, nontender. No hepatosplenomegaly, normal bowel sounds, no guarding or rigidity. EXTREMITIES: No clubbing, no edema, no cyanosis, 2+ pulses and upper and lower extremities. MUSCULOSKELETAL: Muscle strength and tone normal. SPINE: No scoliosis or deformity SKIN: No rashes CENTRAL NERVOUS SYSTEM: Alert and oriented -3. No focal deficits, tone is normal in all 4 extremities. PSYCHIATRIC: Alert and oriented -3. Appropriate affect. Intact judgment and insight. - Labs CBC & Chem 7: 12/06/21 06:09 12/06/21 06:09 Labs: Abnormal Lab Results - Last 24 Hours (Table) 12/05/21 12/05/21 12/06/21 Range/Units 16:48 21:01 06:09 WBC (4.50-10.00) X 10*3/uL RBC (4.10-5.20) X 10*6/uL Hgb (12.0-15.0) g/dL Hct (37.2-46.3) % MCHC (32.0-37.0) g/dL RDW (11.5-14.5) % Immature Gran # (0.00-0.04) X 10*3/uL Neutrophils # (1.80-7.70) X 10*3/uL Lymphocytes # (0.90-5.00) X 10*3/uL Eosinophils # (0.04-0.35) X 10*3/uL Chloride 110 H (98-107) mmol/L BUN 39 H (7-17) mg/dL Glucose 153 H (74-99) mg/dL POC Glucose (mg/dL) 395 H 262 H (75-99) mg/dL Calcium 8.1 L (8.4-10.2) mg/dL ALT 35 H (4-34) U/L Total Protein 5.4 L (6.3-8.2) g/dL Albumin 2.8 L (3.5-5.0) g/dL 12/06/21 12/06/21 12/06/21 Range/Units 06:09 07:16 11:29 WBC 16.60 H (4.50-10.00) X 10*3/uL RBC 2.83 L (4.10-5.20) X 10*6/uL Hgb 8.4 L (12.0-15.0) g/dL Hct 26.8 L (37.2-46.3) % MCHC 31.3 L (32.0-37.0) g/dL RDW 18.1 H (11.5-14.5) % Immature Gran # 0.19 H (0.00-0.04) X 10*3/uL Neutrophils # 15.76 H (1.80-7.70) X 10*3/uL Lymphocytes # 0.40 L (0.90-5.00) X 10*3/uL Eosinophils # 0 L (0.04-0.35) X 10*3/uL Chloride (98-107) mmol/L BUN (7-17) mg/dL Glucose (74-99) mg/dL POC Glucose (mg/dL) 175 H 154 H (75-99) mg/dL Calcium (8.4-10.2) mg/dL ALT (4-34) U/L Total Protein (6.3-8.2) g/dL Albumin (3.5-5.0) g/dL Microbiology - Last 24 Hours (Table) 12/03/21 12:04 Blood Culture - Preliminary Blood No Growth after 72 hours 12/02/21 19:55 Blood Culture - Preliminary Blood No Growth after 72 hours 12/02/21 20:44 Blood Culture - Preliminary Blood No Growth after 72 hours Assessment and Plan Plan: Assessment: #1. Acute hypoxic respiratory failure related to acute exacerbation of systolic CHF, and possibility of aspiration pneumonia is also being considered, patient tested negative for COVID-19. Pro-Calcitonin level came back elevated, patient remains on Zosyn, IV steroids and Lasix. Improved on today's exam, off BiPAP support and down to 5 L of oxygen on the nasal cannula. #2. Elevated troponin, rule out possibility of non-ST elevated myocardial infarction, please refer to the cardiology consultation note #3. Rule out possibility of aspiration, consult speech therapy, sister reports episodes of vomiting on Friday prior to coming into the hospital that may have contributed to aspiration pneumonia #4. History of previous non-ST elevated myocardial infarction in October 2021 #5. Nonischemic cardiomyopathy with EF of 20-25% and Tako Tsubo syndrome in October 2021 #6. History of mild intermittent bronchial asthma #7. History of obstructive sleep apnea on CPAP in the outpatient setting #8. Hypertension #9. Hyperlipidemia #10. History of gout #11. Diabetes mellitus type 2 Plan: Patient continues to improve, Currently on room air Tolerating ambulation Lungs sounds are clear Patient did not qualify for home oxygen She passed modified barium swallow However patient does eat quite fast and may still aspirate based on the speed of food ingestion She was educated on aspiration precautions Vital signs have been stable Patient is stable for discharge home today Patient can resume home dose of hydrocortisone, no prednisone taper as needed She will complete outpatient course of oral antibiotics in the form of Augmentin Outpatient follow-up with Dr. Ramirez in the office in 7-10 days I performed a history & physical examination of the patient and discussed their management with my nurse practitioner, Roz Jacobo. I reviewed the nurse practitioner's note and agree with the documented findings and plan of care. Lung sounds are positive for diffuse rhonchi throughout the lung meredith. The findings and the impression was discussed with the patient. I attest to the documentation by the nurse practitioner. Time with Patient: Less than 30
--- NOTE | 2021-12-06 15:40 | P.PN ---
Subjective Progress Note Date: 12/05/21 This is a 76-year-old female admitted with acute CHF exacerbation, possible aspiration pneumonia, acute hypoxic respiratory failure and possible NSTEMI. Troponins 0.015, 0.244, 0.102, 0.063. Followed by both pulmonary and cardiology. Pro-calcitonin elevated, 1.11. Afebrile. Continues on empiric Zosyn for potential aspiration pneumonia as patient had been throwing up over the weekend, along with nebulized bronchodilators and IV steroids. Diuresing well on Lasix IV push with 24-hour I&O reflecting a negative fluid balance. Echo reporting slight improvement ,EF 25-30% Less congestion with small generalized pericardial effusion, mild to moderate pulmonary hypertension, right-sided pressure of 47.1 4. weaned off of BiPAP, maintaining O2 sats in the 90s on 5 L nasal cannula. Potassium 2.9, magnesium 1.4 with replacement protocols in place. 12/05/2021 Maintained on nebulized bronchodilators, IV steroids and Zosyn. Modified barium swallow pending.maintaining O2 sats in the low 90s on 6 L nasal cannula. Occasional nonproductive cough.Chest x-ray reporting persistent but significantly improving bilateral airspace disease. Afebrile. Received supplementation yesterday, Potassium 3.6, magnesium 2.5. Diuresing well on Lasix IV push with 24-hour I&O reflecting a negative fluid balance. Renal function stable. Denies any chest pain, palpitations. Hyperglycemic. Objective - Vital Signs Vital signs: Vital Signs Temp 97.9 F 12/05/21 14:00 Pulse 88 12/05/21 14:00 Resp 18 12/05/21 14:00 BP 140/68 12/05/21 14:00 Pulse Ox 95 12/05/21 14:00 Intake & Output 12/04/21 12/05/21 12/05/21 18:59 06:59 18:59 Output Total 900 500 Balance -900 -500 Weight 49.442 kg Output: Urine 900 500 Other: Voiding Method Indwelling Catheter Indwelling Catheter # Bowel Movements 1 - Exam PHYSICAL EXAM: VITAL SIGNS: As above GENERAL: Sitting up in bed, respiratory effort mildly increased, no acute distress HEENT: Conjunctivae normal. eyes normal. Oral mucosa moist NECK: No JVD. No thyroid enlargement. No LNs CARDIOVASCULAR: S1, S2 regular.. No murmur RESPIRATION: Breath sounds diminished in the bases. ABDOMEN: Soft, nontender . No guarding. no masses palpable.Bowel sounds heard. LEGS: No edema. no swelling PSYCHIATRY: Alert and oriented X3, mood and affect normal. NERVOUS SYSTEM: Cranial N 2-12 grossly normal. Moves all 4 limbs. No focal deficits. Strength and sensation grossly intact. Skin: Warm and dry ,no rash - Labs CBC & Chem 7: 12/06/21 06:09 12/06/21 06:09 Labs: Abnormal Lab Results - Last 24 Hours (Table) 12/04/21 12/04/21 12/04/21 Range/Units 16:56 17:40 20:06 WBC (4.50-10.00) X 10*3/uL RBC (4.10-5.20) X 10*6/uL Hgb (12.0-15.0) g/dL Hct (37.2-46.3) % MCHC (32.0-37.0) g/dL RDW (11.5-14.5) % Immature Gran # (0.00-0.04) X 10*3/uL Neutrophils # (1.80-7.70) X 10*3/uL Lymphocytes # (0.90-5.00) X 10*3/uL Eosinophils # (0.04-0.35) X 10*3/uL Potassium 2.9 L (3.5-5.5) mmol/L BUN (9.0-27.0) mg/dL BUN/Creatinine Ratio (12.00-20.00) Ratio Glucose (70-110) mg/dL POC Glucose (mg/dL) 408 H 365 H (75-99) mg/dL Calcium (8.7-10.3) mg/dL Magnesium (1.5-2.4) mg/dL 12/05/21 12/05/21 12/05/21 Range/Units 04:35 04:35 07:01 WBC 21.19 H (4.50-10.00) X 10*3/uL RBC 2.91 L (4.10-5.20) X 10*6/uL Hgb 8.6 L (12.0-15.0) g/dL Hct 27.2 L (37.2-46.3) % MCHC 31.6 L (32.0-37.0) g/dL RDW 17.6 H (11.5-14.5) % Immature Gran # 0.19 H (0.00-0.04) X 10*3/uL Neutrophils # 20.27 H (1.80-7.70) X 10*3/uL Lymphocytes # 0.33 L (0.90-5.00) X 10*3/uL Eosinophils # 0 L (0.04-0.35) X 10*3/uL Potassium 3.3 L (3.5-5.5) mmol/L BUN 27.7 H (9.0-27.0) mg/dL BUN/Creatinine Ratio 32.59 H (12.00-20.00) Ratio Glucose 230 H (70-110) mg/dL POC Glucose (mg/dL) 311 H (75-99) mg/dL Calcium 7.9 L (8.7-10.3) mg/dL Magnesium 2.5 H (1.5-2.4) mg/dL 12/05/21 12/05/21 Range/Units 11:50 16:48 WBC (4.50-10.00) X 10*3/uL RBC (4.10-5.20) X 10*6/uL Hgb (12.0-15.0) g/dL Hct (37.2-46.3) % MCHC (32.0-37.0) g/dL RDW (11.5-14.5) % Immature Gran # (0.00-0.04) X 10*3/uL Neutrophils # (1.80-7.70) X 10*3/uL Lymphocytes # (0.90-5.00) X 10*3/uL Eosinophils # (0.04-0.35) X 10*3/uL Potassium (3.5-5.5) mmol/L BUN (9.0-27.0) mg/dL BUN/Creatinine Ratio (12.00-20.00) Ratio Glucose (70-110) mg/dL POC Glucose (mg/dL) 281 H 395 H (75-99) mg/dL Calcium (8.7-10.3) mg/dL Magnesium (1.5-2.4) mg/dL Microbiology - Last 24 Hours (Table) 01/03/22 12:04 Blood Culture - Preliminary Blood No Growth after 48 hours 12/02/21 20:44 Blood Culture - Preliminary Blood No Growth after 48 hours 12/02/21 19:55 Blood Culture - Preliminary Blood No Growth after 48 hours Assessment and Plan Assessment: Acute CHF exacerbation, systolic dysfunction Possible acute aspiration pneumonia Acute hypoxic respiratory failure secondary to all the above Elevated troponins, possible NSTEMI, history of nonischemic cardiomyopathy EF 20-25% 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 Current EF 25-30%. EKG changes attributed to suspected taku subo syndrome as per cardiology. Mild to moderate pulmonary hypertension History of paroxysmal atrial fibrillation Diabetes mellitus II, hyperglycemia, steroid-induced Hypertension Hyperlipidemia Gastroesophageal reflux disease Obstructive Sleep apnea, with CPAP, BiPAP at home Anxiety Plan: Continue on current medication regime ,monitoring and symptomatic treatment. Continue on diuretics, aggressive pulmonary toileting with nebulized bronchodilators, IV steroids, antibiotics. Levemir insulin added to med regimen.Close monitoring of Accu-Cheks. MBS completed, reporting functional oropharyngeal swallow ,recommending continue with chopped diet, thin liquids as tolerated. The impression and plan of care has been dictated as directed. : I performed a history and examination of this patient, discussed the same with the dictator. I agree with the dictator's note ,documented as a scribe. Any additional findings or plans will be noted.
--- NOTE | 2021-12-06 15:57 | P.DS ---
Providers Date of admission: 12/02/21 22:15 Expected date of discharge: 12/06/21 Attending physician: Mateus Engel Consults: 12/02/21 22:15 Consult Physician Routine Consulting Provider: Johny Ramirez Consult Reason/Comments: asthma Do you want consulting provider notified?: Yes, Notify in am 12/03/21 14:18 Consult Physician Routine Consulting Provider: [facility] Consult Reason/Comments: Elevated Troponin Do you want consulting provider notified?: Yes Primary care physician: Mateus Engel [facility] Course: Final Diagnoses: Acute CHF exacerbation, systolic dysfunction Possible acute aspiration pneumonia Acute hypoxic respiratory failure secondary to all the above Elevated troponins, possible NSTEMI, history of nonischemic cardiomyopathy EF 20-25% 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 Current EF 25-30%. 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 Mild to moderate pulmonary hypertension History of paroxysmal atrial fibrillation Diabetes mellitus II, hyperglycemia, steroid-induced Hypertension Hyperlipidemia Gastroesophageal reflux disease Obstructive Sleep apnea, with CPAP, BiPAP at home Anxiety Hospital course:This is a 76-year-old female admitted with acute CHF exacerbation, possible aspiration pneumonia, acute hypoxic respiratory failure and possible NSTEMI. Troponins 0.015, 0.244, 0.102, 0.063. Followed by both pulmonary and cardiology. Pro-calcitonin elevated, 1.11. Afebrile. Continues on empiric Zosyn for potential aspiration pneumonia as patient had been throwing up over the weekend, along with nebulized bronchodilators and IV steroids. Diuresing well on Lasix IV push with 24-hour I&O reflecting a negative fluid balance. Echo reporting slight improvement ,EF 25-30% Less congestion with small generalized pericardial effusion, mild to moderate pulmonary hypertension, right-sided pressure of 47.14. weaned off of BiPAP, maintaining O2 sats in the 90s on 5 L nasal cannula. Potassium 2.9, magnesium 1.4 with replacement protocols in place. 12/05/2021 Maintained on nebulized bronchodilators, IV steroids and Zosyn. Modified barium swallow pending.maintaining O2 sats in the low 90s on 6 L nasal cannula. Occasional nonproductive cough.Chest x-ray reporting persistent but significantly improving bilateral airspace disease. Afebrile. Received supplementation yesterday, Potassium 3.6, magnesium 2.5. Diuresing well on Lasix IV push with 24-hour I&O reflecting a negative fluid balance. Renal function stable. Denies any chest pain, palpitations. Hyperglycemic. Significant clinical improvement. Oxygen weaned down to 2 L nasal cannula maintaining O2 sats in the mid 90s. Pro-calcitonin level elevated at 1.1 and empirically treated with Zosyn for possible aspiration. Modified barium swallow reported functional oropharyngeal swallow, free spillage at the level pyriform sinuses observed with thinner for cost 50s prior to initiating the oropharyngeal swallow; however this was felt to be WFL for patient's advanced age no significant pharyngeal residuals observed .Patient will be discharged home today pending final DC recommendations and clearance per both cardiology and pulmonary. O2 sat on room air after ambulation pending with case management alerted. The impression and plan of care has been dictated as directed. : I performed a history and examination of this patient, discussed the same with the dictator. I agree with the dictator's note ,documented as a scribe. Any additional findings or plans will be noted. Patient Condition at Discharge: Stable Plan - Discharge Summary Discharge Rx Participant: No New Discharge Prescriptions: New Amoxicillin/Potassium Clav [Augmentin 875-125 Tablet] 1 tab PO Q12HR 5 Days #10 tab Continue metFORMIN HCL [Glucophage] 500 mg PO AC-TID Montelukast Sodium [Singulair] 10 mg PO DAILY ALPRAZolam [Xanax] 0.25 mg PO HS Meclizine [Antivert] 25 mg PO TID Cholecalciferol [Vitamin D3 (25 Mcg = 1000 Iu)] 50 mcg PO DAILY Furosemide [Lasix] 20 mg PO DAILY Albuterol Nebulized [Ventolin Nebulized] 2.5 mg INHALATION RT-QID PRN PRN Reason: Shortness Of Breath Salmeterol Xinafoate [Serevent Diskus] 1 puff INHALATION RT-BID Sucralfate [Carafate] 1 gm PO TID Hydrocortisone [Cortef] 20 mg PO DAILY Hydrocortisone 10 mg PO HS Latanoprost Ophth [Xalatan 0.005%] 1 drops RIGHT EYE HS Multivitamins, Thera [Multivitamin (formulary)] 1 tab PO DAILY traMADol HCL 50 mg PO BID PRN PRN Reason: Pain Apixaban [Eliquis] 5 mg PO BID #60 tab Spironolactone [Aldactone] 25 mg PO DAILY #30 tab Omeprazole 40 mg PO DAILY Alendronate Sodium [Binosto] 70 mg PO YOUNG Aspirin 81 mg PO DAILY tab Metoprolol Tartrate [Lopressor] 25 mg PO BID #60 tab Nitroglycerin Sl Tabs [Nitrostat] 0.4 mg SUBLINGUAL Q5M PRN #100 tab PRN Reason: Chest Pain Atorvastatin [Lipitor] 20 mg PO DAILY lisinopriL [Zestril] 5 mg PO DAILY Discontinued Amiodarone [Cordarone] 200 mg PO DAILY Discharge Medication List ALPRAZolam [Xanax] 0.25 mg PO HS 12/14/14 [History] Cholecalciferol [Vitamin D3 (25 Mcg = 1000 Iu)] 50 mcg PO DAILY 12/14/14 [History] Furosemide [Lasix] 20 mg PO DAILY 12/14/14 [History] Meclizine [Antivert] 25 mg PO TID 12/14/14 [History] Montelukast Sodium [Singulair] 10 mg PO DAILY 12/14/14 [History] metFORMIN HCL [Glucophage] 500 mg PO AC-TID 12/14/14 [History] Albuterol Nebulized [Ventolin Nebulized] 2.5 mg INHALATION RT-QID PRN 06/18/16 [History] Salmeterol Xinafoate [Serevent Diskus] 1 puff INHALATION RT-BID 06/18/16 [History] Sucralfate [Carafate] 1 gm PO TID 05/19/19 [History] Hydrocortisone 10 mg PO HS 07/12/20 [History] Hydrocortisone [Cortef] 20 mg PO DAILY 07/12/20 [History] Latanoprost Ophth [Xalatan 0.005%] 1 drops RIGHT EYE HS 07/12/20 [History] Alendronate Sodium [Binosto] 70 mg PO YOUNG 09/29/21 [History] Multivitamins, Thera [Multivitamin (formulary)] 1 tab PO DAILY 09/29/21 [History] traMADol HCL 50 mg PO BID PRN 09/29/21 [History] Apixaban [Eliquis] 5 mg PO BID #60 tab 10/03/21 [Rx] Aspirin 81 mg PO DAILY tab 10/09/21 [Rx] Metoprolol Tartrate [Lopressor] 25 mg PO BID #60 tab 10/09/21 [Rx] Nitroglycerin Sl Tabs [Nitrostat] 0.4 mg SUBLINGUAL Q5M PRN #100 tab 10/09/21 [Rx] Spironolactone [Aldactone] 25 mg PO DAILY #30 tab 10/09/21 [Rx] Atorvastatin [Lipitor] 20 mg PO DAILY 12/02/21 [History] Omeprazole 40 mg PO DAILY 12/02/21 [History] lisinopriL [Zestril] 5 mg PO DAILY 12/02/21 [History] Amoxicillin/Potassium Clav [Augmentin 875-125 Tablet] 1 tab PO Q12HR 5 Days #10 tab 12/06/21 [Rx] Follow up Appointment(s)/Referral(s): [facility], [NON-STAFF] - As Needed Ozzie Coelho DO [STAFF PHYSICIAN] - 12/18/21 2:45 pm Mateus Engel DO [Primary Care Provider] - 12/10/21 10:40 am Johny Ramirez DO [Doctor of Osteopathic Medicine] - 01/01/22 9:45 am (hospital follow up) Sierra Cornejo MD [STAFF PHYSICIAN] - 12/28/21 2:15 pm (Appointment scheduled prior to admission for sleep study/ 1 year follow-up.) Ambulatory/Diagnostic Orders: Complete Blood Count w/diff [LAB.AMB] Time Frame: 3 Days, Location: None Selected Patient Instructions/Handouts: Pneumonia (DC) Discharge Disposition: HOME SELF-CARE
[2021-12-07] MEDS ORDERED: FUROSEMIDE 20 MG TAB PO SCH (09:00)
--- NOTE | 2021-12-10 14:18 | CDI ---
Documentation Clarification Form Date: 12/10/2021 02:10:53 PM From: Prince Frausto Phone: Admit Date: 12/02/2021 10:15:00 PM Patient Name: Keely Brady Visit Number: [id number] Discharge Date: 12/06/2021 02:37:00 PM ATTENTION: The Clinical Documentation Specialists (CDI) and [facility] Coding Staff appreciate your assistance in clarifying documentation. Please respond to the clarification below the line at the bottom and electronically sign. The CDI & [facility] staff will review the response and follow-up if needed. Please note: Queries are made part of the Legal Health Record. If you have any questions, please contact the author of this message via ITS. Dr. Mateus Engel Possible sepsis is documented in the H+P but is not noted in subsequent documentation. Clarification is requested. History/Risk Factors: lactic acidosis, possible aspiration PNA, NSTEMI, CHF exacerbation Clinical Indicators: ED: BP138/64, WBC 13.4, temp 99.0, resp 18 Treatment: IV zosyn, IV lasix Please clarify if sepsis is: [ X ] sepsis confirmed, remains under treatment [ ] sepsis confirmed, resolved [ ] sepsis ruled out [ ] Other condition, please specify [ ] Unable to determine MTDD
== END 2021-12-06 14:37 | disposition home or self-care (01) | DRG 871 ==
LOC: EC 19:44 → 5NMEDONC 22:15 → 4SSUR 12-03 17:30
PROVIDERS: ADMIT Family Medicine; ATTEND Family Medicine
DX: A41.9 Sepsis, unspecified organism (principal); I21.A1 Myocardial infarction type 2; J69.0 Pneumonitis due to inhalation of food and vomit; I50.23 Acute on chronic systolic (congestive) heart failure; J96.01 Acute respiratory failure with hypoxia; E87.1 Hypo-osmolality and hyponatremia; E87.2 Acidosis; I31.3 Pericardial effusion (noninflammatory); J44.1 Chronic obstructive pulmonary disease with (acute) exacerbation; I42.8 Other cardiomyopathies; I11.0 Hypertensive heart disease with heart failure; D64.9 Anemia, unspecified; E11.65 Type 2 diabetes mellitus with hyperglycemia; E78.5 Hyperlipidemia, unspecified; E83.42 Hypomagnesemia; E87.6 Hypokalemia; F41.9 Anxiety disorder, unspecified; G47.33 Obstructive sleep apnea (adult) (pediatric); I15.8 Other secondary hypertension; I25.2 Old myocardial infarction; Z20.822 Contact with and (suspected) exposure to COVID-19; I27.20 Pulmonary hypertension, unspecified; I48.0 Paroxysmal atrial fibrillation; J45.909 Unspecified asthma, uncomplicated; K21.9 Gastro-esophageal reflux disease without esophagitis; T38.0X5A Adverse effect of glucocorticoids and synthetic analogues, initial encounter; Z79.01 Long term (current) use of anticoagulants; Z79.52 Long term (current) use of systemic steroids; Z79.82 Long term (current) use of aspirin; Z79.84 Long term (current) use of oral hypoglycemic drugs; Z79.899 Other long term (current) drug therapy; Z86.14 Personal history of Methicillin resistant Staphylococcus aureus infection; Z90.49 Acquired absence of other specified parts of digestive tract; Z90.710 Acquired absence of both cervix and uterus; Z96.653 Presence of artificial knee joint, bilateral; M10.9 Gout, unspecified
CPT/HCPCS: 36415; 36600; 71045; 71046; 74230; 80048; 80053; 81001; 82805; 83605; 83735; 83880; 84132; 84145; 84484; 85025; 85610; 85730; 86140; 87040; 87635; 93005; 93308; 94640; 94660; 94760; 96361; 96365; 96366; 96372; 96375; 99285

== ENCOUNTER 2023-05-17 09:11 | Emergency (ER) | payer MEDICARE, OTHER ==
[2023-05-17 09:16] VITALS: TEMP 97.6
--- NOTE | 2023-05-17 09:42 | XR ---
EXAMINATION TYPE: XR elbow complete LT DATE OF EXAM: 05/17/2023 9:31 AM INDICATION: Patient age:Female; 77 years old; Reason for study: fall; COMPARISON: None TECHNIQUE: The left elbow was examined in AP, lateral, and oblique projections. FINDINGS: No evidence of any acute osseous pathology or joint dislocation. There is soft tissue swell ing over the olecranon process. Olecranon process triceps enthesophyte is present. Mild anterior fat pad sign without evidence for fracture. IMPRESSION: 1. No evidence of acute fracture. 2. Soft tissue swelling over the olecranon process correlate for hematoma/edema. 3. Mild joint effusion suggested disc concern for occult fracture consider CT.
--- NOTE | 2023-05-17 09:47 | ED ---
General Adult HPI - General Chief complaint: Extremity Injury, Upper Stated complaint: fall Time Seen by Provider: 05/17/23 09:25 Source: patient, RN notes reviewed, old records reviewed Mode of arrival: ambulatory Limitations: no limitations - History of Present Illness Initial comments: This is a 77-year-old female presents emergency Department complaining of falling last evening and hitting her elbow. Patient she woke up today swollen and bruised so she decided come to the emergency department. Patient states she is able to use the arm just fine it does feel little sore but is not excruciating pain. Patient denies hitting her head or neck pain patient denies any chest pain or back pain. Patient denies any other symptoms at this time. - Related Data Home Medications Medication Instructions Recorded Confirmed ALPRAZolam [Xanax] 0.25 mg PO HS 12/14/14 12/02/21 Cholecalciferol [Vitamin D3 (25 50 mcg PO DAILY 12/14/14 12/02/21 Mcg = 1000 Iu)] Furosemide [Lasix] 20 mg PO DAILY 12/14/14 12/02/21 Meclizine [Antivert] 25 mg PO TID 12/14/14 12/02/21 Montelukast Sodium [Singulair] 10 mg PO DAILY 12/14/14 12/02/21 metFORMIN HCL [Glucophage] 500 mg PO AC-TID 12/14/14 12/02/21 Albuterol Nebulized [Ventolin 2.5 mg INHALATION RT-QID PRN 06/18/16 12/02/21 Nebulized] Salmeterol Xinafoate [Serevent 1 puff INHALATION RT-BID 06/18/16 12/02/21 Diskus] Sucralfate [Carafate] 1 gm PO TID 05/19/19 12/02/21 Hydrocortisone 10 mg PO HS 07/12/20 12/02/21 Hydrocortisone [Cortef] 20 mg PO DAILY 07/12/20 12/02/21 Latanoprost Ophth [Xalatan 0.005%] 1 drops RIGHT EYE HS 07/12/20 12/02/21 Alendronate Sodium [Binosto] 70 mg PO YOUNG 09/29/21 12/02/21 Multivitamins, Thera [Multivitamin 1 tab PO DAILY 09/29/21 12/02/21 (formulary)] traMADol HCL 50 mg PO BID PRN 09/29/21 12/02/21 Atorvastatin [Lipitor] 20 mg PO DAILY 12/02/21 12/02/21 Omeprazole 40 mg PO DAILY 12/02/21 12/02/21 lisinopriL [Zestril] 5 mg PO DAILY 12/02/21 12/02/21 Previous Rx's Medication Instructions Recorded Apixaban [Eliquis] 5 mg PO BID #60 tab 10/03/21 Aspirin 81 mg PO DAILY tab 10/09/21 Metoprolol Tartrate [Lopressor] 25 mg PO BID #60 tab 10/09/21 Nitroglycerin Sl Tabs [Nitrostat] 0.4 mg SUBLINGUAL Q5M PRN #100 tab 10/09/21 Spironolactone [Aldactone] 25 mg PO DAILY #30 tab 10/09/21 Amoxicillin/Potassium Clav 1 tab PO Q12HR 5 Days #10 tab 12/06/21 [Augmentin 875-125 Tablet] Allergies Allergy/AdvReac Type Severity Reaction Status Date / Time latex Allergy Rash/Hives Verified 05/17/23 09:14 sulfamethoxazole Allergy Unknown Verified 05/17/23 09:14 [From Bactrim] trimethoprim [From Bactrim] Allergy Unknown Verified 05/17/23 09:14 Review of Systems ROS Statement: Those systems with pertinent positive or pertinent negative responses have been documented in the HPI. ROS Other: All systems not noted in ROS Statement are negative. Past Medical History Past Medical History: Asthma, Diabetes Mellitus, Eye Disorder, GERD/Reflux, Hyperlipidemia, Hypertension, Sleep Apnea/CPAP/BIPAP Additional Past Medical History / Comment(s): NIDDM, vertigo, developmentally d elayed, glaucoma, cpap at home History of Any Multi-Drug Resistant Organisms: MRSA Date of last positivie culture/infection: 10/05/21 MDRO Source:: MRSA SPUTUM Past Surgical History: Appendectomy, Hysterectomy, Joint Replacement Additional Past Surgical History / Comment(s): bilateral knee replacement, right rotator cuff surgery, bilateral carpal tunnel, tumor removed right thigh, bilateral foot surg r/t gout and arthritis, shingles 11/20, cataracts removed bilaterally Past Anesthesia/Blood Transfusion Reactions: No Reported Reaction Additional Past Anesthesia/Blood Transfusion Reaction / Comment(s): Pt "alittle slow to wake up." Pt has never recieved blood. Past Psychological History: Anxiety Smoking Status: Never smoker Past Alcohol Use History: None Reported Past Drug Use History: None Reported - Past Family History Sister(s) Family Medical History: Cancer Additional Family Medical History / Comment(s): colon, lung, stomach General Exam - General Exam Comments Initial Comments: GENERAL Patient is well-developed and well-nourished. Patient is in mild distress. EYES Patient's pupils are equal and round. Extraocular motion is intact SKIN Unremarkable NEURO The patient is alert and oriented 3 PYSCH Patient has normal interpersonal interactions. MUSCULOSKELETAL Elbow is swollen and ecchymotic she has full range of motion with the elbow Limitations: no limitations Course Vital Signs 05/17/23 09:14 Temperature 97.6 F Pulse Rate 82 Respiratory 16 Rate Blood Pressure 179/67 O2 Sat by Pulse 99 Oximetry Procedures - Orthopedic Splinting/Casting Injury #1 Side: left Upper Extremity Injury Location: long arm, elbow Upper Extremity Immobilizer: posterior splint Medical Decision Making - Medical Decision Making Was pt. sent in by a medical professional or institution (, PA, SUPERVISOR UNLOADING, urgent care, hospital, or snf...) When possible be specific @ -No Did you speak to anyone other than the patient for history (EMS, parent, family, police, friend...)? What history was obtained from this source @ -No Did you review nursing and triage notes (agree or disagree)? Why? @ -I reviewed and agree with nursing and triage notes Were old charts reviewed (outside hosp., previous admission, EMS record, old EKG, old radiological studies, urgent care reports/EKG's, snf records)? Report findings @ -Family in the room gives most history Differential Diagnosis (chest pain, altered mental status, abdominal pain women, abdominal pain men, vaginal bleeding, weakness, fever, dyspnea, syncope, h eadache, dizziness, GI bleed, back pain, seizure, CVA, palpatations, mental health, musculoskeletal)? @ -Differential Musculoskeletal Muscular strain, contusion, ligament sprain, fracture, arthritis, septic arthritis, bursitis, cellulitis, muscle spasm, nerve compression, DVT, arterial occlusion, herpes zoster, electrolyte abnormality, tumor.... This is not meant to be in all inclusive list EKG interpreted by me (3pts min.). @ -As above X-rays interpreted by me (1pt min.). @ -X-ray shows anterior sail sign which is indicative of occult fracture CT interpreted by me (1pt min.). @ -None done U/S interpreted by me (1pt. min.). @ -None done What testing was considered but not performed or refused? (CT, X-rays, U/S, labs)? Why? @ -None What meds were considered but not given or refused? Why? @ -None Did you discuss the management of the patient with other professionals (professionals i.e. , PA, SUPERVISOR [employer]LOADING, lab, RT, psych nurse, social scientist, incinerator attendant, teacher, patient safety officer, behavioral health case manager)? Give summary @ -No Was smoking cessation discussed for >3mins.? @ -No Was critical care preformed (if so, how long)? @ -No Were there social determinants of health that impacted care today? How? (Homelessness, low income, unemployed, alcoholism, drug addiction, transportation, low edu. Level, literacy, decrease access to med. care, [facility], rehab)? @ -No Was there de-escalation of care discussed even if they declined (Discuss DNR or withdrawal of care, Hospice)? DNR status @ -No What co-morbidities impacted this encounter? (DM, HTN, Smoking, COPD, CAD, Cancer, CVA, ARF, Chemo, Hep., AIDS, mental health diagnosis, sleep apnea, morbid obesity)? @ -None Was patient admitted / discharged? Hospital course, mention meds given and route, prescriptions, significant lab abnormalities, going to OR and other pertinent info. @ -the patient was having full range of motion and didn't seem to have much pain. Perfusion indicates a possible occult fracture so we will splint the patient and put the patient a sling and have her follow-up with orthopedic Undiagnosed new problem with uncertain prognosis? @ -No Drug Therapy requiring intensive monitoring for toxicity (Heparin, Nitro, Insulin, Cardizem)? @ -No Were any procedures done? @ -This patient had a splint and sling put on please see procedure note Diagnosis/symptom? @ -Elbow fracture Acute, or Chronic, or Acute on Chronic? @ -Acute Uncomplicated (without systemic symptoms) or Complicated (systemic symptoms)? @ -Complicated Side effects of treatment? @ -No Exacerbation, Progression, or Severe Exacerbation? @ -No Poses a threat to life or bodily function? How? (Chest pain, [place], [place], pneumonia, PE, COPD, DKA, ARF, appy, cholecystitis, CVA, Diverticulitis, Homicidal, Suicidal, threat to staff... and all critical care pts) @ -No Disposition Clinical Impression: Elbow fracture, left Disposition: HOME SELF-CARE Condition: Good Instructions (If sedation given, give patient instructions): Elbow Fracture (ED) Additional Instructions: Patient should follow-up with orthopedics Is patient prescribed a controlled substance at d/c from ED?: No Referrals: Mateus Engel DO [Primary Care Provider] - 1-2 days Time of Disposition: 09:48
[2023-05-17 10:57] VITALS: BP 132/78; PULSE 80; RESP 18
== END 2023-05-17 10:56 | disposition home or self-care (01) ==
LOC: EC 09:11
DX: S42.402A Unspecified fracture of lower end of left humerus, initial encounter for closed fracture (principal); E11.36 Type 2 diabetes mellitus with diabetic cataract; I10 Essential (primary) hypertension; J45.909 Unspecified asthma, uncomplicated; E78.5 Hyperlipidemia, unspecified; K21.9 Gastro-esophageal reflux disease without esophagitis; F41.9 Anxiety disorder, unspecified; Z79.84 Long term (current) use of oral hypoglycemic drugs; Z79.51 Long term (current) use of inhaled steroids; Z79.899 Other long term (current) drug therapy; Z88.1 Allergy status to other antibiotic agents; Z88.2 Allergy status to sulfonamides; Z91.040 Latex allergy status; W18.30XA Fall on same level, unspecified, initial encounter; W22.8XXA Striking against or struck by other objects, initial encounter
CPT/HCPCS: 29105; 99284

== ENCOUNTER 2023-10-05 16:48 | Emergency (ER) | payer MEDICARE, OTHER ==
[2023-10-05 17:08] VITALS: PULSE 97; RESP 22; TEMP 98.4
[2023-10-05 17:46] LABS: Anisocytosis Slight; Basophils # (A) 0.1 k/uL (0-0.2); Basophils % (A) 1 %; Eosinophils # (A) 0.3 k/uL (0-0.7); Eosinophils % (A) 4 %; HCT 32.8 % (34.0-46.0); HGB 10.8 gm/dL (11.4-16.0); Hypochromasia Slight; Lymphocytes # (A) 2.4 k/uL (1.0-4.8); Lymphocytes % (A) 31 %; MCH 25.5 pg (25.0-35.0); MCV 77.3 fL (80.0-100.0); Mean Platelet Volume 7.5; Microcytosis Slight; Monocytes # (A) 0.5 k/uL (0-1.0); Monocytes % (A) 6 %; Neutrophils # (A) 4.4 k/uL (1.3-7.7); Neutrophils % (A) 56 %; Platelet Count 378 k/uL (150-450); RBC 4.24 m/uL (3.80-5.40); RDW 16.8 % (11.5-15.5); WBC 7.8 k/uL (3.8-10.6)
[2023-10-05 17:58] LABS: ALT 21 U/L (4-34); AST 25 U/L (14-36); African American GFR (CKD) 84 (>60 ml/min/1.73 sqM); Albumin 4.2 g/dL (3.5-5.0); Alkaline Phosphatase 56 U/L (38-126); Anion Gap 13 mmol/L; Blood Urea Nitrogen 44 mg/dL (7-17); Calcium 10.6 mg/dL (8.4-10.2); Carbon Dioxide 21 mmol/L (22-30); Chloride 104 mmol/L (98-107); Glucose 119 mg/dL (74-99); Lipase 181 U/L (23-300); Non-African American GFR(CKD) 73 (>60 ml/min/1.73 sqM); Potassium 4.4 mmol/L (3.5-5.1); Sodium 138 mmol/L (137-145); Total Bilirubin 0.3 mg/dL (0.2-1.3); Total Protein 6.8 g/dL (6.3-8.2)
--- NOTE | 2023-10-05 18:55 | US ---
EXAMINATION TYPE: US gallbladder DATE OF EXAM: 10/05/2023 COMPARISON: NONE CLINICAL INDICATION: Female, 78 years old with history of ruq pain; abdominal pain TECHNIQUE: Multiple sonographic images of the right upper quadrant are obtained. FINDINGS: EXAM MEASUREMENTS: Liver Length: 11.6 cm Gallbladder Wall: 0.2 cm CBD: 0.7 cm Right Kidney: 9.1 x 4.2 x 4.3 cm HEAD OF SALES NOTES: *Technical limitations due to large amount of overlying bowel gas Pancreas: duct = 0.3cm Liver: appears wnl as visualized Gallbladder: no evidence of stones as visualized Evidence for sonographic Marquez's sign: no CBD: dilated Right Kidney: no evidence of hydronephrosis IMPRESSION: No evidence for acute process.
[2023-10-05 19:17] LABS: Appearance,Urine Clear (Clear); Bilirubin,Urine Negative (Negative); Blood,Urine Negative (Negative); Color,Urine Colorless; Glucose,Urine (UA) 4+ (Negative); Ketones,Urine Negative (Negative); Leukocyte Esterase,Urine Trace (Negative); Nitrite,Urine Negative (Negative); Protein,Urine Negative (Negative); RBC,Urine 2 /hpf (0-5); Specific Gravity,Urine 1.019 (1.001-1.035); Squamous Epithelial Cell,Urine <1 /hpf (0-4); Urobilinogen,Urine <2.0 mg/dL (<2.0); WBC,Urine 7 /hpf (0-5)
--- NOTE | 2023-10-05 20:00 | CT ---
EXAMINATION TYPE: CT abdomen pelvis w con CT DLP: 454.3 mGycm, Automated exposure control for dose reduction was used. DATE OF EXAM: 10/05/2023 7:45 PM COMPARISON: Ultrasound same day. CLINICAL INDICATION:Female, 78 years old with history of ruq pain; RUQ abdominal pain TECHNIQUE: Axial CT of the ;CT abdomen pelvis w con;Sagittal and coronal reformats were created on a separate workstation. Contrast used:100 cc mL of Isovue 300 with IV Contrast, (none if empty) Oral contrast used: without Oral Contrast (none if empty) FINDINGS: LOWER CHEST: Right middle lobe 8 mm pulmonary nodule. Small hiatal hernia. ABDOMEN LIVER: Diffusely hypoattenuating parenchyma. GALLBLADDER AND BILE DUCTS: Gallbladder appears within normal limits at consistent with prior ultraso und same day. Dilation of the extrahepatic biliary system up to 7 mm is within normal limits for alejandro ent's age. Mild intrahepatic biliary dilation centrally. No evidence for filling defect within the co mmon duct. PANCREAS: Unremarkable. SPLEEN: Unremarkable. ADRENAL GLANDS: Unremarkable. KIDNEYS AND URETERS: No evidence of hydronephrosis or renal calculus. The ureters are unremarkable. Left renal cyst. PELVIS BLADDER: Unremarkable REPRODUCTIVE: Unremarkable. ABDOMEN & PELVIS STOMACH AND BOWEL: No evidence of bowel obstruction. PERITONEUM/RETROPERITONEUM: No evidence of pneumoperitoneum or free fluid. VASCULATURE: Mild atherosclerotic calcifications are present throughout the abdominal aorta and its b ranches. No evidence of aortic aneurysm. MUSCULOSKELETAL: No acute osseous abnormalities. Moderate disc degeneration changes are present throu ghout the thoracolumbar spine. LYMPH NODES: No gross evidence for lymphadenopathy. SOFT TISSUE/ABDOMINAL WALL: Unremarkable IMPRESSION: 1. Mild extrahepatic and intrahepatic biliary dilation. Further evaluation for choledocholithiasis c ould be performed with MRCP. 2. Right middle lobe pulmonary nodule measuring up to 8 mm. Further evaluation recommended with PET/ CT. 3. Hepatic steatosis. 4. Normal-appearing gallbladder. 5. No evidence for obstructive uropathy. 6. Small hiatal hernia. 7.
[2023-10-05] MEDS ORDERED: HYDROcodone/APAP 5-325MG 1 EACH TAB PO STA (20:17)
--- NOTE | 2023-10-05 20:44 | ED ---
Abdominal Pain HPI - General Chief Complaint: Abdominal Pain Stated Complaint: abd pain Time Seen by Provider: 10/05/23 17:14 Source: patient Mode of arrival: ambulatory Limitations: no limitations - History of Present Illness Initial Comments: 78-year-old female with past medical history of developmental delay, diabetes who presents to the emergency department with right upper quadrant abdominal pain. Sr. at bedside states that it has been going on since Friday. Patient has nausea without vomiting. They saw their primary care physician who compl eted laboratory studies was consented the patient for an ultrasound. Sister states that the patient has had such pain that she has lost weight she can eat. Unknown if she has a gallbladder. They deny any fevers. No dysuria, hematuria or difficulty voiding. No black or bloody stools. No vaginal bleeding or discharge. She is status post hysterectomy. No other alleviating, precipitating or modifying factors - Related Data Home Medications Medication Instructions Recorded Confirmed ALPRAZolam [Xanax] 0.25 mg PO HS 12/14/14 12/02/21 Cholecalciferol [Vitamin D3 (25 50 mcg PO DAILY 12/14/14 12/02/21 Mcg = 1000 Iu)] Furosemide [Lasix] 20 mg PO DAILY 12/14/14 12/02/21 Meclizine [Antivert] 25 mg PO TID 12/14/14 12/02/21 Montelukast Sodium [Singulair] 10 mg PO DAILY 12/14/14 12/02/21 metFORMIN HCL [Glucophage] 500 mg PO AC-TID 12/14/14 12/02/21 Albuterol Nebulized [Ventolin 2.5 mg INHALATION RT-QID PRN 06/18/16 12/02/21 Nebulized] Salmeterol Xinafoate [Serevent 1 puff INHALATION RT-BID 06/18/16 12/02/21 Diskus] Sucralfate [Carafate] 1 gm PO TID 05/19/19 12/02/21 Hydrocortisone 10 mg PO HS 07/12/20 12/02/21 Hydrocortisone [Cortef] 20 mg PO DAILY 07/12/20 12/02/21 Latanoprost Ophth [Xalatan 0.005%] 1 drops RIGHT EYE HS 07/12/20 12/02/21 Alendronate Sodium [Binosto] 70 mg PO YOUNG 09/29/21 12/02/21 Multivitamins, Thera [Multivitamin 1 tab PO DAILY 09/29/21 12/02/21 (formulary)] traMADol HCL 50 mg PO BID PRN 09/29/21 12/02/21 Atorvastatin [Lipitor] 20 mg PO DAILY 12/02/21 12/02/21 Omeprazole 40 mg PO DAILY 12/02/21 12/02/21 lisinopriL [Zestril] 5 mg PO DAILY 12/02/21 12/02/21 Previous Rx's Medication Instructions Recorded Apixaban [Eliquis] 5 mg PO BID #60 tab 10/03/21 Aspirin 81 mg PO DAILY tab 10/09/21 Metoprolol Tartrate [Lopressor] 25 mg PO BID #60 tab 10/09/21 Nitroglycerin Sl Tabs [Nitrostat] 0.4 mg SUBLINGUAL Q5M PRN #100 tab 10/09/21 Spironolactone [Aldactone] 25 mg PO DAILY #30 tab 10/09/21 Amoxicillin/Potassium Clav 1 tab PO Q12HR 5 Days #10 tab 12/06/21 [Augmentin 875-125 Tablet] HYDROcodone/APAP 5-325MG [[place] 1 tab PO Q6HR PRN 3 Days #12 tab 10/05/23 5-325] Allergies Allergy/AdvReac Type Severity Reaction Status Date / Time latex Allergy Rash/Hives Verified 10/05/23 16:53 sulfamethoxazole Allergy Unknown Verified 10/05/23 16:53 [From Bactrim] trimethoprim [From Bactrim] Allergy Unknown Verified 10/05/23 16:53 Review of Systems ROS Statement: Those systems with pertinent positive or pertinent negative responses have been documented in the HPI. ROS Other: All systems not noted in ROS Statement are negative. Past Medical History Past Medical History: Asthma, Diabetes Mellitus, Eye Disorder, GERD/Reflux, Hyperlipidemia, Hypertension, Sleep Apnea/CPAP/BIPAP Additional Past Medical History / Comment(s): NIDDM, vertigo, developmentally delayed, glaucoma, cpap at home History of Any Multi-Drug Resistant Organisms: MRSA Date of last positivie culture/infection: 10/05/21 MDRO Source:: MRSA SPUTUM Past Surgical History: Appendectomy, Hysterectomy, Joint Replacement Additional Past Surgical History / Comment(s): bilateral knee replacement, right rotator cuff surgery, bilateral carpal tunnel, tumor removed right thigh, bilateral foot surg r/t gout and arthritis, shingles 11/20, cataracts removed bilaterally Past Anesthesia/Blood Transfusion Reactions: No Reported Reaction Additional Past Anesthesia/Blood Transfusion Reaction / Comment(s): Pt "alittle slow to wake up." Pt has never recieved blood. Past Psychological History: Anxiety Smoking Status: Never smoker Past Alcohol Use History: None Reported Past Drug Use History: None Reported - Past Family History Sister(s) Family Medical History: Cancer Additional Family Medical History / Comment(s): colon, lung, stomach General Exam Limitations: no limitations General appearance: alert, in no apparent distress Head exam: Present: atraumatic, normocephalic, normal inspection Eye exam: Present: normal appearance, PERRL, EOMI. Absent: scleral icterus, conjunctival injection, periorbital swelling ENT exam: Present: normal exam, mucous membranes moist Neck exam: Present: normal inspection. Absent: tenderness, meningismus, lymphadenopathy Respiratory exam: Present: normal lung sounds bilaterally. Absent: respiratory distress, wheezes, rales, rhonchi, stridor Cardiovascular Exam: Present: regular rate, normal rhythm, normal heart sounds. Absent: systolic murmur, diastolic murmur, rubs, gallop, clicks GI/Abdominal exam: Present: soft, tenderness (Right upper quadrant), normal bowel sounds. Absent: distended, guarding, rebound, rigid Extremities exam: Present: normal inspection, full ROM, normal capillary refill. Absent: tenderness, pedal edema, joint swelling, calf tenderness Back exam: Present: normal inspection Neurological exam: Present: alert, oriented X3, CN II-XII intact Psychiatric exam: Present: normal affect, normal mood Skin exam: Present: warm, dry, intact, normal color. Absent: rash Course Vital Signs 10/05/23 10/05/23 10/05/23 16:51 17:30 18:00 Temperature 98.4 F Pulse Rate 97 Respiratory 22 Rate Blood Pressure 122/50 113/72 O2 Sat by Pulse 97 96 95 Oximetry 10/05/23 10/05/23 10/05/23 18:30 19:00 19:30 Temperature Pulse Rate Respiratory Rate Blood Pressure 132/58 123/59 108/59 O2 Sat by Pulse 95 96 96 Oximetry 10/05/23 10/05/23 20:00 20:30 Temperature Pulse Rate Respiratory Rate Blood Pressure 126/65 O2 Sat by Pulse 97 96 Oximetry Medical Decision Making - Medical Decision Making Was pt. sent in by a medical professional or institution (MERLYN Rivera, STEAMBOAT INSPECTOR, urgent care, hospital, or [place] health care facility...) When possible be specific @ -No Did you speak to anyone other than the patient for history (EMS, parent, family, police, friend...)? What history was obtained from this source @ -I spoke with the patient's sister Did you review nursing and triage notes (agree or disagree)? Why? @ -I reviewed and agree with nursing and triage notes Were old charts reviewed (outside hosp., previous admission, EMS record, old EKG, old radiological studies, urgent care reports/EKG's, [place] health care facility records)? Report findings @ -No old charts were reviewed Differential Diagnosis (chest pain, altered mental status, abdominal pain women, abdominal pain men, vaginal bleeding, weakness, fever, dyspnea, syncope, headache, dizziness, GI bleed, back pain, seizure, CVA, palpatations, mental health, musculoskeletal)? @ -Differential Abdominal Pain Women: Appendicitis, Cholecystitis, diverticulosis, ischemic bowel, pancreatitis, hepatitis, UTI, gastroenteritis, AAA, incarcerated hernia, bowel obstruction, constipation, inflammatory bowel, hepatitis, peptic ulcer disease, splenic infarction, perforated viscus, vulvitis, ovarian torsion, PID, kidney stone, placenta abruption, this is not meant to be an all-inclusive list EKG interpreted by me (3pts min.). @ -Not done X-rays interpreted by me (1pt min.). @ -None done CT interpreted by me (1pt min.). @ -yes and demonstrates intra-and extrahepatic biliary dilation U/S interpreted by me (1pt. min.). @ -Yes and demonstrates no acute process What testing was considered but not performed or refused? (CT, X-rays, U/S, labs)? Why? @ -MRCP however we do not have capabilities What meds were considered but not given or refused? Why? @ -None Did you discuss the management of the patient with other professionals (professionals i.e. MERLYN Rivera, STEAMBOAT INSPECTOR, lab, RT, psych nurse, high school social studies tutor, support worker, teacher, chief business officer, field nurse case manager)? Give summary @ -I ran the case past Dr. Simmons Was smoking cessation discussed for >3mins.? @ -No Was critical care preformed (if so, how long)? @ -No Were there social determinants of health that impacted care today? How? (Homelessness, low income, unemployed, alcoholism, drug addiction, transporta tion, low edu. Level, literacy, decrease access to med. care, retirement, rehab)? @ -No Was there de-escalation of care discussed even if they declined (Discuss DNR or withdrawal of care, Hospice)? DNR status @ -No What co-morbidities impacted this encounter? (DM, HTN, Smoking, COPD, CAD, Cancer, CVA, ARF, Chemo, Hep., AIDS, mental health diagnosis, sleep apnea, morbid obesity)? @ -Developmental delay Was patient admitted / discharged? Hospital course, mention meds given and route, prescriptions, significant lab abnormalities, going to OR and other pertinent info. @ -On arrival patient was placed in room 27. Thorough history and physical exam was performed. Patient was offered pain medications and is agreeable to a [place]. Laboratory studies were conducted. Ultrasound was performed and was negative. This is followed up by CT which demonstrates intra-and extra hepatic ducts dilation. I spoke with Dr. Simmons in regards to these findings as well as her normal laboratory studies and ultrasound. He feels as if the patient can receive further workup to include MRCP on an outpatient basis. I did discuss this with the patient and family and they were agreeable. They are to call tomorrow to the primary care to see if they can order an MRCP. Patient may also need EGD. Return for any new or worsening symptoms. They're given a small prescription for pain medications and instructed about the side effect profile. Patient discharged in stable condition Undiagnosed new problem with uncertain prognosis? @ -Yes Drug Therapy requiring intensive monitoring for toxicity (Heparin, Nitro, Insulin, Cardizem)? @ -No Were any procedures done? @ -No Diagnosis/symptom? @ -Acute right upper quadrant abdominal pain Acute, or Chronic, or Acute on Chronic? @ -Acute Uncomplicated (without systemic symptoms) or Complicated (systemic symptoms)? @ -Complicated Side effects of treatment? @ -No Exacerbation, Progression, or Severe Exacerbation? @ -No Poses a threat to life or bodily function? How? (Chest pain, USA, NM, pneumonia, PE, COPD, DKA, ARF, appy, cholecystitis, CVA, Diverticulitis, Homicidal, Suicidal, threat to staff... and all critical care pts) @ -No - Lab Data Result diagrams: 10/05/23 17:34 10/05/23 17:34 Lab Results 10/05/23 10/05/23 10/05/23 Range/Units 14:39 17:34 17:34 WBC 7.8 (3.8-10.6) k/uL RBC 4.24 (3.80-5.40) m/uL Hgb 10.8 L (11.4-16.0) gm/dL Hct 32.8 L (34.0-46.0) % MCV 77.3 L (80.0-100.0) fL MCH 25.5 (25.0-35.0) pg MCHC 33.0 (31.0-37.0) g/dL RDW 16.8 H (11.5-15.5) % Plt Count 378 (150-450) k/uL MPV 7.5 Neutrophils % 56 % Lymphocytes % 31 % Monocytes % 6 % Eosinophils % 4 % Basophils % 1 % Neutrophils # 4.4 (1.3-7.7) k/uL Lymphocytes # 2.4 (1.0-4.8) k/uL Monocytes # 0.5 (0-1.0) k/uL Eosinophils # 0.3 (0-0.7) k/uL Basophils # 0.1 (0-0.2) k/uL Hypochromasia Slight Anisocytosis Slight Microcytosis Slight Sodium 138 (137-145) mmol/L Potassium 4.4 (3.5-5.1) mmol/L Chloride 104 (98-107) mmol/L Carbon Dioxide 21 L (22-30) mmol/L Anion Gap 13 mmol/L BUN 44 H (7-17) mg/dL Creatinine 0.78 (0.52-1.04) mg/dL Est GFR (CKD-EPI)AfAm 84 (>60 ml/min/1.73 sqM) Est GFR (CKD-EPI)NonAf 73 (>60 ml/min/1.73 sqM) Glucose 119 H (74-99) mg/dL Plasma Lactic Acid Jose De Jesus (0.7-2.0) mmol/L Calcium 10.6 H (8.4-10.2) mg/dL Total Bilirubin 0.3 (0.2-1.3) mg/dL AST 25 (14-36) U/L ALT 21 (4-34) U/L Alkaline Phosphatase 56 (38-126) U/L Total Protein 6.8 (6.3-8.2) g/dL Albumin 4.2 (3.5-5.0) g/dL Lipase 181 (23-300) U/L Urine Color Colorless Urine Appearance Clear (Clear) Urine pH 5.0 (5.0-8.0) Ur Specific [place] 1.019 (1.001-1.035) Urine Protein Negative (Negative) Urine Glucose (UA) 4+ H (Negative) Urine Ketones Negative (Negative) Urine Blood Negative (Negative) Urine Nitrite Negative (Negative) Urine Bilirubin Negative (Negative) Urine Urobilinogen <2.0 (<2.0) mg/dL Ur Leukocyte Esterase Trace H (Negative) Urine RBC 2 (0-5) /hpf Urine WBC 7 H (0-5) /hpf Ur Squamous Epith Cells <1 (0-4) /hpf 10/05/23 Range/Units 17:34 WBC (3.8-10.6) k/uL RBC (3.80-5.40) m/uL Hgb (11.4-16.0) gm/dL Hct (34.0-46.0) % MCV (80.0-100.0) fL MCH (25.0-35.0) pg MCHC (31.0-37.0) g/dL RDW (11.5-15.5) % Plt Count (150-450) k/uL MPV Neutrophils % % Lymphocytes % % Monocytes % % Eosinophils % % Basophils % % Neutrophils # (1.3-7.7) k/uL Lymphocytes # (1.0-4.8) k/uL Monocytes # (0-1.0) k/uL Eosinophils # (0-0.7) k/uL Basophils # (0-0.2) k/uL Hypochromasia Anisocytosis Microcytosis Sodium (137-145) mmol/L Potassium (3.5-5.1) mmol/L Chloride (98-107) mmol/L Carbon Dioxide (22-30) mmol/L Anion Gap mmol/L BUN (7-17) mg/dL Creatinine (0.52-1.04) mg/dL Est GFR (CKD-EPI)AfAm (>60 ml/min/1.73 sqM) Est GFR (CKD-EPI)NonAf (>60 ml/min/1.73 sqM) Glucose (74-99) mg/dL Plasma Lactic Acid Jose De Jesus 1.6 (0.7-2.0) mmol/L Calcium (8.4-10.2) mg/dL Total Bilirubin (0.2-1.3) mg/dL AST (14-36) U/L ALT (4-34) U/L Alkaline Phosphatase (38-126) U/L Total Protein (6.3-8.2) g/dL Albumin (3.5-5.0) g/dL Lipase (23-300) U/L Urine Color Urine Appearance (Clear) Urine pH (5.0-8.0) Ur Specific [place] (1.001-1.035) Urine Protein (Negative) Urine Glucose (UA) (Negative) Urine Ketones (Negative) Urine Blood (Negative) Urine Nitrite (Negative) Urine Bilirubin (Negative) Urine Urobilinogen (<2.0) mg/dL Ur Leukocyte Esterase (Negative) Urine RBC (0-5) /hpf Urine WBC (0-5) /hpf Ur Squamous Epith Cells (0-4) /hpf Disposition Clinical Impression: Abdominal pain Disposition: HOME SELF-CARE Condition: Stable Instructions (If sedation given, give patient instructions): Abdominal Pain (ED) Additional Instructions: You need to have an MRCP and possibly an EGD for your symptoms. Use the pain medications as needed and follow-up with your doctor to see if they can order these tests. Return for any new or worsening symptoms Prescriptions: HYDROcodone/APAP 5-325MG [[place] 5-325] 1 tab PO Q6HR PRN 3 Days #12 tab PRN Reason: Severe Breakthrough Pain Is patient prescribed a controlled substance at d/c from ED?: Yes When asked, does pt state using other controlled substances?: No If prescribed controlled substance>3 days was MAPS reviewed?: Prescribed <3 Days If opioid is for acute pain is fill amount 7 days or less?: Yes Referrals: Mateus Engel DO [Primary Care Provider] - 1-2 days Time of Disposition: 20:44
[2023-10-05 20:59] VITALS: BP 126/65
== END 2023-10-05 21:07 | disposition home or self-care (01) ==
LOC: EC 16:48
DX: R10.11 Right upper quadrant pain (principal); J45.909 Unspecified asthma, uncomplicated; E11.9 Type 2 diabetes mellitus without complications; K21.9 Gastro-esophageal reflux disease without esophagitis; E78.5 Hyperlipidemia, unspecified; I10 Essential (primary) hypertension; F41.9 Anxiety disorder, unspecified; Z91.040 Latex allergy status; Z88.2 Allergy status to sulfonamides; Z79.84 Long term (current) use of oral hypoglycemic drugs; Z79.899 Other long term (current) drug therapy
CPT/HCPCS: 36415; 80053; 83605; 83690; 85025; 81001; 76705; 74177; 99284; Q9967

== ENCOUNTER → 2023-10-24 | Outpatient (CLI) | payer MEDICARE, OTHER ==
--- NOTE | 2023-10-24 09:34 | MR ---
EXAMINATION TYPE: MR MRCP DATE OF EXAM: 10/24/2023 7:58 AM CLINICAL INDICATION:Female, 78 years old with history of R10.13 EPIGASTRIC PAIN; PHH, Pain in Stomach COMPARISON: 12/16/20192014. CT 10/05/2023. TECHNIQUE: Multi planar, T2-weighted imaging with and without fat saturation and chemical shift imag ing was performed of the abdomen. Then, heavily T2 weighted imaging (half-Fourier acquisition single- shot turbo spin-echo) was utilized in order to study the biliary system. Maximum intensity projectio n images were reconstructed from the original data of the biliary tree. 3D images were created on a [employer] work station. No Gadolinium given. FINDINGS: Lower Thorax: No evidence for acute process. MRCP: * The intrahepatic ducts have a normal appearance. * The common bile duct at the level of the pancreatic head measures 6 mm in size. * The common hepatic duct measures 6 mm in size. * The pancreatic duct is within normal limits for size with pancreatic divisum morphology. * The gallbladder appears unremarkable. Abdomen: Liver: Unremarkable. Pancreas: Pancreatic divisum morphology to the collecting system. High T2 signal focus within the ayala creatic tail/body seen on MRCP sequences only measuring up to 3 mm Spleen: Unremarkable. Adrenal glands: Unremarkable. Kidneys: Unremarkable. Stomach and Bowel: Unremarkable as visualized. Second portion duodenal diverticulum. Peritoneum: No evidence of pneumoperitoneum or free fluid. Vasculature: Unremarkable. No aortic aneurysm. Musculoskeletal: The osseous structures appear intact. Lymph Nodes: No gross evidence for lymphadenopathy. Abdominal wall: Unremarkable. IMPRESSION: 1. Pancreatic divisum morphology. There is a second portion duodenal diverticulum which impresses up on the common bile duct with upstream prominent/dilation up to 6 mm which is still within the normal limits for size. No evidence for choledocholithiasis. 2. Possible pancreatic body intraductal papillary mucinous neoplasm measuring up to 3 mm.e
== END | disposition home or self-care (01) ==
LOC: RADMRIMAIN 06:54
PROVIDERS: ATTEND Family Medicine
DX: K57.10 Diverticulosis of small intestine without perforation or abscess without bleeding (principal); Q45.3 Other congenital malformations of pancreas and pancreatic duct; R10.13 Epigastric pain
CPT/HCPCS: 74181

== ENCOUNTER 2023-12-15 14:18 | Emergency (ER) | payer MEDICARE, OTHER ==
[2023-12-15 15:14] VITALS: RESP 18; TEMP 98.7
--- NOTE | 2023-12-15 15:32 | ED ---
Abdominal Pain HPI - General Source: patient, RN notes reviewed Mode of arrival: ambulatory Limitations: no limitations <Dulce Maria Servin - Last Filed: 12/15/23 15:31> <Avi Galeano - Last Filed: 12/16/23 04:50> - General Chief Complaint: Abdominal Pain Stated Complaint: abd pain Time Seen by Provider: 12/15/23 15:31 - History of Present Illness Initial Comments: Patient is a 78-year-old female presented ER with chief complaint of abdominal pain. Patient states it has been going on for the past 2 months. Patient denies any urinary complaints, constipation/diarrhea, fevers, chills. (Dulce Maria Servin) 78-year-old female presenting with chief complaint of abdominal pain. Pain is located in the right upper quadrant epigastric region. This pain is been ongoing for the last 2-4 months according to the patient's sister at bedside. Patient was seen here previously for this complaint and was instructed to follow up with GI. They have an appointment scheduled with GI for next month. Sister states the patient has been eating less. Admits to nausea. Denies fever, chills, chest pain, difficulty breathing, diarrhea, constipation, urinary complaints (Avi Galeano) - Related Data Home Medications Medication Instructions Recorded Confirmed ALPRAZolam [Xanax] 0.25 mg PO HS 12/14/14 12/02/21 Cholecalciferol [Vitamin D3 (25 50 mcg PO DAILY 12/14/14 12/02/21 Mcg = 1000 Iu)] Furosemide [Lasix] 20 mg PO DAILY 12/14/14 12/02/21 Meclizine [Antivert] 25 mg PO TID 12/14/14 12/02/21 Montelukast Sodium [Singulair] 10 mg PO DAILY 12/14/14 12/02/21 metFORMIN HCL [Glucophage] 500 mg PO AC-TID 12/14/14 12/02/21 Albuterol Nebulized [Ventolin 2.5 mg INHALATION RT-QID PRN 06/18/16 12/02/21 Nebulized] Salmeterol Xinafoate [Serevent 1 puff INHALATION RT-BID 06/18/16 12/02/21 Diskus] Sucralfate [Carafate] 1 gm PO TID 05/19/19 12/02/21 Hydrocortisone 10 mg PO HS 07/12/20 12/02/21 Hydrocortisone [Cortef] 20 mg PO DAILY 07/12/20 12/02/21 Latanoprost Ophth [Xalatan 0.005%] 1 drops RIGHT EYE HS 07/12/20 12/02/21 Alendronate Sodium [Binosto] 70 mg PO YOUNG 09/29/21 12/02/21 Multivitamins, Thera [Multivitamin 1 tab PO DAILY 09/29/21 12/02/21 (formulary)] traMADol HCL 50 mg PO BID PRN 09/29/21 12/02/21 Atorvastatin [Lipitor] 20 mg PO DAILY 12/02/21 12/02/21 Omeprazole 40 mg PO DAILY 12/02/21 12/02/21 lisinopriL [Zestril] 5 mg PO DAILY 12/02/21 12/02/21 Previous Rx's Medication Instructions Recorded Apixaban [Eliquis] 5 mg PO BID #60 tab 10/03/21 Aspirin 81 mg PO DAILY tab 10/09/21 Metoprolol Tartrate [Lopressor] 25 mg PO BID #60 tab 10/09/21 Nitroglycerin Sl Tabs [Nitrostat] 0.4 mg SUBLINGUAL Q5M PRN #100 tab 10/09/21 Spironolactone [Aldactone] 25 mg PO DAILY #30 tab 10/09/21 Amoxicillin/Potassium Clav 1 tab PO Q12HR 5 Days #10 tab 12/06/21 [Augmentin 875-125 Tablet] HYDROcodone/APAP 5-325MG [Randolph 1 tab PO Q6HR PRN 3 Days #12 tab 10/05/23 5-325] Famotidine [Pepcid] 20 mg PO DAILY #20 tablet 12/15/23 Allergies Allergy/AdvReac Type Severity Reaction Status Date / Time latex Allergy Rash/Hives Verified 12/15/23 14:59 sulfamethoxazole Allergy Rash/Hives Verified 12/15/23 19:02 [From Bactrim] trimethoprim [From Bactrim] Allergy Rash/Hives Verified 12/15/23 19:02 Review of Systems ROS Other: All systems not noted in ROS Statement are negative. <Dulce Maria Servin - Last Filed: 12/15/23 15:31> ROS Other: All systems not noted in ROS Statement are negative. <Avi Galeano - Last Filed: 12/16/23 04:50> ROS Statement: Those systems with pertinent positive or pertinent negative responses have been documented in the HPI. Past Medical History Past Medical History: Asthma, Diabetes Mellitus, Eye Disorder, GERD/Reflux, Hyperlipidemia, Hypertension, Sleep Apnea/CPAP/BIPAP Additional Past Medical History / Comment(s): NIDDM, vertigo, developmentally delayed, glaucoma, cpap at home History of Any Multi-Drug Resistant Organisms: MRSA Date of last positivie culture/infection: 10/05/21 MDRO Source:: MRSA SPUTUM Past Surgical History: Appendectomy, Hysterectomy, Joint Replacement Additional Past Surgical History / Comment(s): bilateral knee replacement, right rotator cuff surgery, bilateral carpal tunnel, tumor removed right thigh, bilateral foot surg r/t gout and arthritis, shingles 11/20, cataracts removed bilaterally Past Anesthesia/Blood Transfusion Reactions: No Reported Reaction Additional Past Anesthesia/Blood Transfusion Reaction / Comment(s): Pt "alittle slow to wake up." Pt has never recieved blood. Past Psychological History: Anxiety Smoking Status: Never smoker Past Alcohol Use History: None Reported Past Drug Use History: None Reported - Past Family History Sister(s) Family Medical History: Cancer Additional Family Medical History / Comment(s): colon, lung, stomach <Dulce Maria Servin - Last Filed: 12/15/23 15:31> General Exam Limitations: no limitations <Dulce Maria Servin - Last Filed: 12/15/23 15:31> General appearance: alert, in no apparent distress Head exam: Present: atraumatic, normocephalic Eye exam: Present: normal appearance Neck exam: Present: normal inspection Respiratory exam: Present: normal lung sounds bilaterally. Absent: respiratory distress, wheezes, rales, rhonchi, stridor Cardiovascular Exam: Present: regular rate, normal rhythm, normal heart sounds. Absent: systolic murmur, diastolic murmur, rubs, gallop, clicks GI/Abdominal exam: Present: soft, tenderness (Mild discomfort with palpation of the upper abdomen). Absent: distended, guarding, rebound, rigid Neurological exam: Present: alert, oriented X3 Psychiatric exam: Present: normal affect, normal mood Skin exam: Present: warm, dry <Avi Galeano - Last Filed: 12/16/23 04:50> - General Exam Comments Initial Comments: Visual Physical Exam Vital signs reviewed General: Well-appearing, nontoxic, no acute distress. Head: Normocephalic, atraumatic Eyes: PERRLA, EOMI ENT: Airway patent Chest: Nonlabored breathing Skin: No visual rash, normal skin tone Neuro: Alert and oriented 3 Musculoskeletal: No gross abnormalities (Dulce Maria Servin) Course Vital Signs 12/15/23 12/15/23 12/15/23 14:57 17:31 18:51 Temperature 98.7 F Pulse Rate 98 85 84 Respiratory 18 18 18 Rate Blood Pressure 104/62 115/61 112/74 O2 Sat by Pulse 97 97 97 Oximetry Medical Decision Making <Dulce Maria Servin - Last Filed: 12/15/23 15:31> - Lab Data Result diagrams: 12/15/23 15:35 12/15/23 15:35 <Avi Galeano - Last Filed: 12/16/23 04:50> - Medical Decision Making I performed the quick note portion of the exam. Electronically signed by Dulce Maria Servin PA-C (Dulce Maria Servin) Was pt. sent in by a medical professional or institution (MERLYN Rivera, PAVING PLANT OPERATOR, urgent care, hospital, or snf...) When possible be specific @ -No Did you speak to anyone other than the patient for history (EMS, parent, family, police, friend...)? What history was obtained from this source @ -History supplemented by the patient's sister at bedside Did you review nursing and triage notes (agree or disagree)? Why? @ -I reviewed and agree with nursing and triage notes Were old charts reviewed (outside hosp., previous admission, EMS record, old EKG, old radiological studies, urgent care reports/EKG's, snf records)? Report findings @ -No old charts were reviewed Differential Diagnosis (chest pain, altered mental status, abdominal pain women, abdominal pain men, vaginal bleeding, weakness, fever, dyspnea, syncope, headache, dizziness, GI bleed, back pain, seizure, CVA, palpatations, mental health, musculoskeletal)? @ -MDM Differential Abdominal Pain Women: Appendicitis, Cholecystitis, diverticulosis, ischemic bowel, pancreatitis, hepatitis, UTI, gastroenteritis, AAA, incarcerated hernia, bowel obstruction, constipation, inflammatory bowel, hepatitis, peptic ulcer disease, splenic infarction, perforated viscus, vulvitis, ovarian torsion, PID, kidney stone, placenta abruption... This is not meant to be an all-inclusive list EKG interpreted by me (3pts min.). @ -As above X-rays interpreted by me (1pt min.). @ -None done CT interpreted by me (1pt min.). @ -CT shows mild extrahepatic dilation which is within normal limits for the patient's age. Right middle lobe pulmonary nodule measuring up to 8 mm. Hepatic steatosis. Poorly visualized gallbladder. No evidence for obstructive uropathy. Small hiatal hernia. U/S interpreted by me (1pt. min.). @ -Ultrasound shows cysts of the pancreas as well as common bile duct of 0.7 cm. No evidence for acute process What testing was considered but not performed or refused? (CT, X-rays, U/S, labs)? Why? @ -None What meds were considered but not given or refused? Why? @ -None Did you discuss the management of the patient with other professionals (professionals i.e. , PA, PAVING PLANT OPERATOR, lab, RT, psych nurse, social media job titles, locomotive operator helper, teacher, police or patrol park officer, case planner)? Give summary @ -No Was smoking cessation discussed for >3mins.? @ -No Was critical care preformed (if so, how long)? @ -No Were there social determinants of health that impacted care today? How? ( Homelessness, low income, unemployed, alcoholism, drug addiction, transportation, low edu. Level, literacy, decrease access to med. care, group home, rehab)? @ -No Was there de-escalation of care discussed even if they declined (Discuss DNR or withdrawal of care, Hospice)? DNR status @ -No What co-morbidities impacted this encounter? (DM, HTN, Smoking, COPD, CAD, Cancer, CVA, ARF, Chemo, Hep., AIDS, mental health diagnosis, sleep apnea, morbid obesity)? @ -None Was patient admitted / discharged? Hospital course, mention meds given and route, prescriptions, significant lab abnormalities, going to OR and other pertinent info. @ -78-year-old female presenting with chief complaint of epigastric pain ongoing for the last 3-4 months. Patient is accompanied by her sister. History and physical exam were conducted. WBC 11.0. Sodium of 131. Amylase and lipase are WNL. Bilirubin WNL. Urine shows no infectious process or bleeding. Ultrasound shows no acute process. CT shows mild extrahepatic dilation which is within normal limits for the patient's age. No acute changes. Patient reports improvement in her pain after GI cocktail and Pepcid. Patient and sister educated on today's findings. Patient is instructed to take [id number] Pepcid as needed. Patient will follow up with GI at her scheduled appointment next month. Follow-up with PCP. Report back to ER with any new or worsening symptoms. Discussed return parameters and answered all questions. Patient conveyed verbal understanding and agreed to the plan. I discussed this case in detail with my attending Dr. Douglas Undiagnosed new problem with uncertain prognosis? @ -No Drug Therapy requiring intensive monitoring for toxicity (Heparin, Nitro, Insulin, Cardizem)? @ -No Were any procedures done? @ -No Diagnosis/symptom? @ -Abdominal pain Acute, or Chronic, or Acute on Chronic? @ -Acute Uncomplicated (without systemic symptoms) or Complicated (systemic symptoms)? @ -Uncomplicated Side effects of treatment? @ -No Exacerbation, Progression, or Severe Exacerbation? @ -No Poses a threat to life or bodily function? How? (Chest pain, [place], [place], pneumonia, PE, COPD, DKA, ARF, appy, cholecystitis, CVA, Diverticulitis, Homicidal, Suicidal, threat to staff... and all critical care pts) @ -Low likelihood (Avi Galeano) - Lab Data Lab Results 12/15/23 12/15/23 12/15/23 Range/Units 15:00 15:35 15:35 WBC 11.0 H (3.8-10.6) k/uL RBC 4.35 (3.80-5.40) m/uL Hgb 11.9 (11.4-16.0) gm/dL Hct 36.5 (34.0-46.0) % MCV 83.8 (80.0-100.0) fL MCH 27.4 (25.0-35.0) pg MCHC 32.6 (31.0-37.0) g/dL RDW 19.1 H (11.5-15.5) % Plt Count 335 (150-450) k/uL MPV 7.9 Neutrophils % 74 % Lymphocytes % 17 % Monocytes % 7 % Eosinophils % 1 % Basophils % 0 % Neutrophils # 8.1 H (1.3-7.7) k/uL Lymphocytes # 1.8 (1.0-4.8) k/uL Monocytes # 0.7 (0-1.0) k/uL Eosinophils # 0.1 (0-0.7) k/uL Basophils # 0.0 (0-0.2) k/uL Anisocytosis Slight Microcytosis Slight Sodium 131 L (137-145) mmol/L Potassium 4.5 (3.5-5.1) mmol/L Chloride 98 (98-107) mmol/L Carbon Dioxide 19 L (22-30) mmol/L Anion Gap 14 mmol/L BUN 43 H (7-17) mg/dL Creatinine 0.78 (0.52-1.04) mg/dL Est GFR (CKD-EPI)AfAm 84 (>60 ml/min/1.73 sqM) Est GFR (CKD-EPI)NonAf 73 (>60 ml/min/1.73 sqM) Glucose 181 H (74-99) mg/dL Plasma Lactic Acid Jose De Jesus (0.7-2.0) mmol/L Calcium 9.7 (8.4-10.2) mg/dL Total Bilirubin 0.5 (0.2-1.3) mg/dL AST 31 (14-36) U/L ALT 24 (4-34) U/L Alkaline Phosphatase 54 (38-126) U/L Total Protein 6.7 (6.3-8.2) g/dL Albumin 4.0 (3.5-5.0) g/dL Amylase 77 (30-110) U/L Lipase 164 (23-300) U/L Urine Color Colorless Urine Appearance Clear (Clear) Urine pH 5.0 (5.0-8.0) Ur Specific Harmony 1.019 (1.001-1.035) Urine Protein Negative (Negative) Urine Glucose (UA) 4+ H (Negative) Urine Ketones Negative (Negative) Urine Blood Negative (Negative) Urine Nitrite Negative (Negative) Urine Bilirubin Negative (Negative) Urine Urobilinogen <2.0 (<2.0) mg/dL Ur Leukocyte Esterase Trace H (Negative) Urine RBC 2 (0-5) /hpf Urine WBC 3 (0-5) /hpf Ur Squamous Epith Cells 1 (0-4) /hpf Hyaline Casts 1 (0-2) /lpf 12/15/23 Range/Units 15:35 WBC (3.8-10.6) k/uL RBC (3.80-5.40) m/uL Hgb (11.4-16.0) gm/dL Hct (34.0-46.0) % MCV (80.0-100.0) fL MCH (25.0-35.0) pg MCHC (31.0-37.0) g/dL RDW (11.5-15.5) % Plt Count (150-450) k/uL MPV Neutrophils % % Lymphocytes % % Monocytes % % Eosinophils % % Basophils % % Neutrophils # (1.3-7.7) k/uL Lymphocytes # (1.0-4.8) k/uL Monocytes # (0-1.0) k/uL Eosinophils # (0-0.7) k/uL Basophils # (0-0.2) k/uL Anisocytosis Microcytosis Sodium (137-145) mmol/L Potassium (3.5-5.1) mmol/L Chloride (98-107) mmol/L Carbon Dioxide (22-30) mmol/L Anion Gap mmol/L BUN (7-17) mg/dL Creatinine (0.52-1.04) mg/dL Est GFR (CKD-EPI)AfAm (>60 ml/min/1.73 sqM) Est GFR (CKD-EPI)NonAf (>60 ml/min/1.73 sqM) Glucose (74-99) mg/dL Plasma Lactic Acid Jose De Jesus 1.7 (0.7-2.0) mmol/L Calcium (8.4-10.2) mg/dL Total Bilirubin (0.2-1.3) mg/dL AST (14-36) U/L ALT (4-34) U/L Alkaline Phosphatase (38-126) U/L Total Protein (6.3-8.2) g/dL Albumin (3.5-5.0) g/dL Amylase (30-110) U/L Lipase (23-300) U/L Urine Color Urine Appearance (Clear) Urine pH (5.0-8.0) Ur Specific Harmony (1.001-1.035) Urine Protein (Negative) Urine Glucose (UA) (Negative) Urine Ketones (Negative) Urine Blood (Negative) Urine Nitrite (Negative) Urine Bilirubin (Negative) Urine Urobilinogen (<2.0) mg/dL Ur Leukocyte Esterase (Negative) Urine RBC (0-5) /hpf Urine WBC (0-5) /hpf Ur Squamous Epith Cells (0-4) /hpf Hyaline Casts (0-2) /lpf Disposition <Dulce Maria Servin - Last Filed: 12/15/23 15:31> Is patient prescribed a controlled substance at d/c from ED?: No Time of Disposition: 18:34 <Avi Galeano - Last Filed: 12/16/23 04:50> Clinical Impression: Abdominal pain Disposition: HOME SELF-CARE Condition: Good Instructions (If sedation given, give patient instructions): Abdominal Pain (ED) Additional Instructions: Follow-up with PCP and GI. Report back to ER with any new or worsening symp toms. Prescriptions: Famotidine [Pepcid] 20 mg PO DAILY #20 tablet Referrals: Mateus Engel DO [Primary Care Provider] - 1-2 days Tessa Rangel MD [STAFF PHYSICIAN] - 1-2 days
[2023-12-15 15:49] LABS: Appearance,Urine Clear (Clear); Bilirubin,Urine Negative (Negative); Blood,Urine Negative (Negative); Color,Urine Colorless; Glucose,Urine (UA) 4+ (Negative); Hyaline Casts,Urine 1 /lpf (0-2); Ketones,Urine Negative (Negative); Leukocyte Esterase,Urine Trace (Negative); Nitrite,Urine Negative (Negative); Protein,Urine Negative (Negative); RBC,Urine 2 /hpf (0-5); Specific Gravity,Urine 1.019 (1.001-1.035); Squamous Epithelial Cell,Urine 1 /hpf (0-4); Urobilinogen,Urine <2.0 mg/dL (<2.0); WBC,Urine 3 /hpf (0-5)
--- NOTE | 2023-12-15 16:25 | US ---
EXAMINATION TYPE: US gallbladder DATE OF EXAM: 12/15/2023 COMPARISON: US 2022 CLINICAL INDICATION: Female, 78 years old with history of Epigastric pain; Abdomen pain, patient not NPO TECHNIQUE: Multiple sonographic images of the right upper quadrant are obtained. FINDINGS: EXAM MEASUREMENTS: Liver Length: 12.7 cm Gallbladder Wall: 0.2 cm CBD: 0.7 cm Right Kidney: 9.0 x 4.3 x 4.1 cm Pancreas: Main duct seen measuring 0.3cm, limited by overlying midline bowel gas . No pancreatic mass es. Liver: wnl Gallbladder: appears wnl Evidence for sonographic Marquez's sign: no CBD: dilated Right Kidney: fullness of renal pelvis IMPRESSION: No evidence for acute process.
[2023-12-15 16:33] LABS: Anisocytosis Slight; Basophils % (A) 0 %; Eosinophils # (A) 0.1 k/uL (0-0.7); Eosinophils % (A) 1 %; HCT 36.5 % (34.0-46.0); HGB 11.9 gm/dL (11.4-16.0); Lymphocytes # (A) 1.8 k/uL (1.0-4.8); Lymphocytes % (A) 17 %; MCH 27.4 pg (25.0-35.0); MCHC 32.6 g/dL (31.0-37.0); MCV 83.8 fL (80.0-100.0); Mean Platelet Volume 7.9; Microcytosis Slight; Monocytes # (A) 0.7 k/uL (0-1.0); Monocytes % (A) 7 %; Neutrophils # (A) 8.1 k/uL (1.3-7.7); Neutrophils % (A) 74 %; Platelet Count 335 k/uL (150-450); RBC 4.35 m/uL (3.80-5.40); RDW 19.1 % (11.5-15.5)
[2023-12-15 16:42] LABS: ALT 24 U/L (4-34); African American GFR (CKD) 84 (>60 ml/min/1.73 sqM); Amylase 77 U/L (30-110); Anion Gap 14 mmol/L; Blood Urea Nitrogen 43 mg/dL (7-17); Calcium 9.7 mg/dL (8.4-10.2); Carbon Dioxide 19 mmol/L (22-30); Chloride 98 mmol/L (98-107); Glucose 181 mg/dL (74-99); Lipase 164 U/L (23-300); Non-African American GFR(CKD) 73 (>60 ml/min/1.73 sqM); Sodium 131 mmol/L (137-145); Total Bilirubin 0.5 mg/dL (0.2-1.3); Total Protein 6.7 g/dL (6.3-8.2)
[2023-12-15 16:54] LABS: AST 31 U/L (14-36); Alkaline Phosphatase 54 U/L (38-126); Potassium 4.5 mmol/L (3.5-5.1)
[2023-12-15] MEDS ORDERED: FAMOTIDINE 20 MG/2 ML VIAL IV STA (17:42)
[2023-12-15] MEDS ORDERED: MAG HYDROX/AL HYDROX/SIMETH 30 ML, HYOSCYAMINE ELIXIR 10 ML, LIDOCAINE 2% GLYDO JELLY 1... PO STA ×3 (17:42)
--- NOTE | 2023-12-15 17:54 | CT ---
EXAMINATION TYPE: CT abdomen pelvis wo con CT DLP: 234.6 mGycm, Automated exposure control for dose reduction was used. DATE OF EXAM: 12/15/2023 5:23 PM COMPARISON: 10/05/2023 , MRCP 10/24/2023 CLINICAL INDICATION:Female, 78 years old with history of pain; pt has been having upper abdominal elise n x 2 months. TECHNIQUE: Axial CT abdomen pelvis wo con;Sagittal and coronal reformats were created on a separate workstation. Contrast used: mL of , (none if empty) Oral contrast used: without Oral Contrast (none if empty) FINDINGS: ABDOMEN LIVER: Diffusely hypoattenuating parenchyma. GALLBLADDER AND BILE DUCTS: Gallbladder appears within normal limits. Dilation of the extrahepatic bi liary system up to 7 mm is within normal limits for patient's age, evaluation limited by motion. No e vidence for filling defect within the common duct. PANCREAS: Pancreatic divisum morphology seen on MRI less well appreciated. SPLEEN: Unremarkable. ADRENAL GLANDS: Unremarkable. KIDNEYS AND URETERS: No evidence of hydronephrosis or renal calculus. The ureters are unremarkable. Left renal cyst. PELVIS BLADDER: Unremarkable REPRODUCTIVE: Unremarkable. ABDOMEN & PELVIS STOMACH AND BOWEL: No evidence of bowel obstruction. PERITONEUM/RETROPERITONEUM: No evidence of pneumoperitoneum or free fluid. VASCULATURE: Mild atherosclerotic calcifications are present throughout the abdominal aorta and its b ranches. No evidence of aortic aneurysm. MUSCULOSKELETAL: No acute osseous abnormalities. Moderate disc degeneration changes are present throu ghout the thoracolumbar spine. Stable compression deformity of the superior endplate of L1. Severe de generation changes of facet joints at L5-S1. LYMPH NODES: No gross evidence for lymphadenopathy. SOFT TISSUE/ABDOMINAL WALL: Unremarkable IMPRESSION: 1. Mild extrahepatic not significantly changed from prior. 2. Right middle lobe pulmonary nodule measuring up to 8 mm. Further evaluation recommended with PET/ CT. 3. Hepatic steatosis. 4. Poorly visualized gallbladder 5. No evidence for obstructive uropathy. 6. Small hiatal hernia.
[2023-12-15] MEDS ORDERED: FAMOTIDINE 20 MG TAB PO STA (18:04)
[2023-12-15 19:03] VITALS: BP 112/74; PULSE 84
== END 2023-12-15 18:56 | disposition home or self-care (01) ==
LOC: EC 14:18
DX: K44.9 Diaphragmatic hernia without obstruction or gangrene (principal); K76.0 Fatty (change of) liver, not elsewhere classified; E78.5 Hyperlipidemia, unspecified; F41.9 Anxiety disorder, unspecified; G47.30 Sleep apnea, unspecified; I10 Essential (primary) hypertension; J45.909 Unspecified asthma, uncomplicated; K21.9 Gastro-esophageal reflux disease without esophagitis; Z79.84 Long term (current) use of oral hypoglycemic drugs; Z79.899 Other long term (current) drug therapy; Z88.2 Allergy status to sulfonamides; Z91.040 Latex allergy status
CPT/HCPCS: 36415; 74176; 76705; 80053; 81001; 82150; 83605; 83690; 85025; 99284

== ENCOUNTER 2024-01-13 08:53 | Day surgery (SDC) | payer MEDICARE, OTHER ==
[~2024-01-13 08:53] MED LIST changes: -LACTATED RINGERS 1,000 ML IV SCH; -LIDOCAINE 1% INJ 10MG/ML (20 ML MDV) ONE; +ONDANSETRON 4 MG/2 ML VIAL IVP PRN; -PROPOFOL 10 MG/ML 20 ML VIAL IV ONE
[2024-01-13] MEDS: LACTATED RINGERS 1,000 ML IV SCH (09:20)
[2024-01-13 09:21] LABS: Glucose,Whole Blood 83 mg/dL (70-110)
[2024-01-13 09:22] VITALS: TEMP 97.9
[2024-01-13] MEDS ORDERED: PROPOFOL 10 MG/ML 20 ML VIAL IV ONE (09:41)
[2024-01-13] MEDS ORDERED: LIDOCAINE 1% INJ 10MG/ML (20 ML MDV) ONE (09:41)
--- NOTE | 2024-01-13 10:06 | P.PCN ---
Date of Procedure: 01/13/24 Procedure(s) Performed: Brief history: Patient is a pleasant 78-year-old white female scheduled for an elective upper endoscopy as well as colonoscopy as a part of evaluation of abdominal pain, intermittent nausea vomiting and progressive weight loss of almost 80 pounds in the last 1 year duration Procedure performed: Esophagogastroduodenoscopy with biopsy Colonoscopy Preoperative diagnosis: Abdominal pain/intermittent nausea vomiting Progressive weight loss of 80 pounds in the last 1 year duration Anesthesia: MAC Procedure: After informed consent was obtained from the patient was brought into the endoscopy unit and IV sedation was administered by anesthesia under continuous monitoring. Initially upper endoscopy was done. The Olympus GF 160 video endoscope was inserted inserted into the mouth and esophagus intubated without any difficulty and was gradually advanced into the stomach and duodenum and carefully examined. The bulb and second part of the duodenum appeared normal. Abscesses were done from the duodenum to rule out celiac disease. The scope was then withdrawn into the stomach adequately insufflated with air and upon careful examination the antrum had mild gastritis and biopsies were done from this area. Mucosa of the body, cardia and fundus appeared normal. The scope was then withdrawn into the esophagus. The GE junction was located at 40 cm to the incisors. It appeared regular with no erythema erosions or ulcerations. Rest of the esophagus appeared normal. Patient tolerated the procedure well. At this time the patient continued to remain sedation. Initial digital rectal examination was normal. Olympus CF 160 video colonoscope was then inserted into the rectum and gradually advanced to the cecum without any difficulty. Careful examination was performed as the scope was gradually being withdrawn. The prep was excellent. The cecum, ascending colon, transverse colon, descending colon, sigmoid colon and rectum appeared normal. Scattered sigmoid diverticulosis. Retroflexion was performed in the rectum and no lesions were noted. Patient tolerated the procedure well. Impression: 1. Upper endoscopy revealed mild antral gastritis and small hiatal hernia 2. Colonoscopy revealed scattered sigmoid diverticula but no evidence of colorectal neoplasia Recommendations: Findings of this examination were discussed with the patient as well as her family. She was advised to follow with the biopsy results. Recommend high- fiber diet and fiber supplements a regular basis.
[2024-01-13 10:48] LABS: Glucose,Whole Blood 82 mg/dL (70-110)
[2024-01-13 11:06] VITALS: BP 126/67; PULSE 71; RESP 20
== END 2024-01-13 10:55 | disposition home or self-care (01) ==
LOC: ORWHC2ENDO 08:53
PROVIDERS: ATTEND Internal Medicine Gastroenterology
DX: K29.50 Unspecified chronic gastritis without bleeding (principal); K57.30 Diverticulosis of large intestine without perforation or abscess without bleeding; K44.9 Diaphragmatic hernia without obstruction or gangrene; I25.2 Old myocardial infarction; I10 Essential (primary) hypertension; E78.5 Hyperlipidemia, unspecified; E11.9 Type 2 diabetes mellitus without complications; F41.9 Anxiety disorder, unspecified; J44.9 Chronic obstructive pulmonary disease, unspecified; Z91.040 Latex allergy status; Z88.2 Allergy status to sulfonamides; Z79.899 Other long term (current) drug therapy; Z79.84 Long term (current) use of oral hypoglycemic drugs; Z79.01 Long term (current) use of anticoagulants; Z90.89 Acquired absence of other organs; Z90.710 Acquired absence of both cervix and uterus; Z98.890 Other specified postprocedural states
CPT/HCPCS: 88305; 45378; 43239; J2001; J2704

== ENCOUNTER → 2024-07-12 | Outpatient (CLI) | payer MEDICARE, OTHER | END | disposition E | LOC: LABPRL 10:05 | PROVIDERS: ATTEND Family Medicine | DX: D64.9 Anemia, unspecified (principal) | CPT/HCPCS: 85025 ==

== ENCOUNTER 2024-08-12 10:20 | Inpatient (IN) | payer MEDICARE, OTHER ==
[2024-08-12 10:49] LABS: Glucose,Whole Blood 252 mg/dL (70-110)
--- NOTE | 2024-08-12 11:11 | ED ---
General Adult HPI - General Chief complaint: Nausea/Vomiting/Diarrhea Stated complaint: hypoglycemic Time Seen by Provider: 08/12/24 10:27 Source: patient, family, RN notes reviewed Mode of arrival: ambulatory Limitations: no limitations - History of Present Illness Initial comments: 78 year old female presenting to ED with chief complaint of nausea, vomiting, and low blood sugar. Reports blood sugar was low at home and sister encouraged high sugar foods. Blood sugar > 200 on arrival to ED, also reports upper abdominal pain radiating to back, denies shortness of breath, chest pain, urinary symptoms, coffee ground emesis, and melena. Patient has had stomach issues in the past which she has had several workups for. Patient's states that she does not know of her medication or why she takes over medication she is noted to be on In the past. Patient denies any current headache or dizziness she states she did not feel well throughout the night. - Related Data Home Medications Medication Instructions Recorded Confirmed Furosemide [Lasix] 20 mg PO DAILY 12/14/14 08/12/24 Meclizine [Antivert] 25 mg PO TID PRN 12/14/14 08/12/24 Montelukast Sodium [Singulair] 10 mg PO DAILY 12/14/14 08/12/24 Albuterol Nebulized [Ventolin 2.5 mg INHALATION RT-QID PRN 06/18/16 08/12/24 Nebulized] Salmeterol Xinafoate [Serevent 1 puff INHALATION RT-BID 06/18/16 08/12/24 Diskus] Sucralfate [Carafate] 1 gm PO TID-W/MEALS 05/19/19 08/12/24 Hydrocortisone 10 mg PO HS 07/12/20 08/12/24 Hydrocortisone [Cortef] 20 mg PO DAILY 07/12/20 08/12/24 Latanoprost Ophth [Xalatan 0.005%] 1 drops RIGHT EYE HS 07/12/20 08/12/24 traMADol HCL 50 mg PO BID PRN 09/29/21 08/12/24 Omeprazole 40 mg PO DAILY 12/02/21 08/12/24 lisinopriL [Zestril] 5 mg PO DAILY 12/02/21 08/12/24 Empagliflozin [Jardiance] 10 mg PO DAILY 01/09/24 08/12/24 Alendronate Sodium [Fosamax] 70 mg PO SA 08/12/24 08/12/24 Atorvastatin Calcium [Lipitor] 40 mg PO HS 08/12/24 08/12/24 Cholecalciferol [Vitamin D3 (10 10 mcg PO DAILY 08/12/24 08/12/24 Mcg = 400 Iu)] Multivit-Min/FA/Lycopen/Lutein 1 tab PO DAILY 08/12/24 08/12/24 [Centrum Silver Tablet] metFORMIN HCL [Glucophage] 1,000 mg PO BID-W/MEALS 08/12/24 08/12/24 Previous Rx's Medication Instructions Recorded Apixaban [Eliquis] 5 mg PO BID #60 tab 10/03/21 Aspirin 81 mg PO DAILY tab 10/09/21 Nitroglycerin Sl Tabs [Nitrostat] 0.4 mg SUBLINGUAL Q5M PRN #100 tab 10/09/21 Spironolactone [Aldactone] 25 mg PO DAILY #30 tab 10/09/21 Allergies Allergy/AdvReac Type Severity Reaction Status Date / Time latex Allergy Rash/Hives Verified 08/12/24 13:00 sulfamethoxazole Allergy Rash/Hives Verified 08/12/24 13:00 [From Bactrim] trimethoprim [From Bactrim] Allergy Rash/Hives Verified 08/12/24 13:00 Review of Systems ROS Statement: Those systems with pertinent positive or pertinent negative responses have been documented in the HPI. ROS Other: All systems not noted in ROS Statement are negative. Past Medical History Past Medical History: Asthma, Diabetes Mellitus, Eye Disorder, GERD/Reflux, Hyperlipidemia, Hypertension, Sleep Apnea/CPAP/BIPAP Additional Past Medical History / Comment(s): NIDDM, vertigo, developmentally delayed, glaucoma, cpap at home History of Any Multi-Drug Resistant Organisms: MRSA Date of last positivie culture/infection: 10/05/21 MDRO Source:: MRSA SPUTUM Past Surgical History: Appendectomy, Hysterectomy, Joint Replacement, Orthopedic Surgery Additional Past Surgical History / Comment(s): bilateral knee replacement, right rotator cuff surgery, bilateral carpal tunnel, tumor removed right thigh, bilateral foot surg r/t gout and arthritis, shingles 11/20, cataracts removed bilaterally Past Anesthesia/Blood Transfusion Reactions: No Reported Reaction Additional Past Anesthesia/Blood Transfusion Reaction / Comment(s): Pt "alittle slow to wake up." Pt has never recieved blood. Past Psychological History: Anxiety Smoking Status: Never smoker - Past Family History Sister(s) Family Medical History: Cancer Additional Family Medical History / Comment(s): colon, lung, stomach General Exam Limitations: no limitations General appearance: alert, in no apparent distress Head exam: Present: atraumatic, normocephalic, normal inspection Eye exam: Present: normal appearance, PERRL, EOMI. Absent: scleral icterus, conjunctival injection, periorbital swelling ENT exam: Present: normal exam, mucous membranes moist Neck exam: Present: normal inspection. Absent: tenderness, meningismus, lymphadenopathy Respiratory exam: Present: normal lung sounds bilaterally. Absent: respiratory distress, wheezes, rales, rhonchi, stridor Cardiovascular Exam: Present: normal rhythm, tachycardia, normal heart sounds. Absent: systolic murmur, diastolic murmur, rubs, gallop, clicks GI/Abdominal exam: Present: soft, tenderness (Gastric), normal bowel sounds. Absent: distended, guarding, rebound, rigid Neurological exam: Present: alert, oriented X3 Course Vital Signs 08/12/24 08/12/24 08/12/24 10:43 11:45 12:00 Temperature 97.7 F 98.5 F Pulse Rate 110 H 110 H 110 H Respiratory 20 22 24 Rate Blood Pressure 81/51 98/61 120/90 O2 Sat by Pulse 98 98 100 Oximetry 08/12/24 08/12/24 08/12/24 12:40 13:00 14:15 Temperature Pulse Rate 110 H 113 H 114 H Respiratory 24 20 Rate Blood Pressure 127/72 121/62 89/65 O2 Sat by Pulse 99 98 93 L Oximetry 08/12/24 08/12/24 08/12/24 14:30 14:45 14:54 Temperature Pulse Rate 112 H 111 H 106 H Respiratory 22 18 Rate Blood Pressure 88/52 89/48 90/60 O2 Sat by Pulse 93 L 91 L Oximetry 08/12/24 08/12/24 08/12/24 15:01 15:21 15:30 Temperature Pulse Rate 112 H 109 H 107 H Respiratory 18 20 Rate Blood Pressure 105/56 94/45 94/45 O2 Sat by Pulse 91 L Oximetry 08/12/24 08/12/24 08/12/24 15:31 15:43 16:00 Temperature Pulse Rate 105 H 108 H 108 H Respiratory Rate Blood Pressure 99/56 O2 Sat by Pulse 91 L Oximetry 08/12/24 08/12/24 08/12/24 16:30 17:00 17:30 Temperature Pulse Rate 107 H 112 H 103 H Respiratory Rate Blood Pressure 101/56 97/51 100/51 O2 Sat by Pulse 91 L 92 L 97 Oximetry 08/12/24 08/12/24 08/12/24 17:45 18:00 18:15 Temperature Pulse Rate 109 H 109 H 110 H Respiratory 20 20 Rate Blood Pressure 83/54 83/67 88/50 O2 Sat by Pulse 96 95 94 L Oximetry 08/12/24 08/12/24 08/12/24 18:30 18:45 19:00 Temperature Pulse Rate 112 H 108 H 107 H Respiratory Rate Blood Pressure 85/63 94/50 85/47 O2 Sat by Pulse Oximetry 08/12/24 08/12/24 08/12/24 19:12 20:24 21:10 Temperature Pulse Rate 106 H 112 H 105 H Respiratory 28 H Rate Blood Pressure 81/43 121/57 112/54 O2 Sat by Pulse 95 93 L 95 Oximetry 08/12/24 08/12/24 08/12/24 21:13 21:24 22:01 Temperature Pulse Rate 106 H 105 H 109 H Respiratory Rate Blood Pressure 106/53 O2 Sat by Pulse 95 Oximetry 08/12/24 08/12/24 08/12/24 22:15 22:30 22:45 Temperature Pulse Rate 106 H 100 113 H Respiratory Rate Blood Pressure 108/55 91/48 109/49 O2 Sat by Pulse 96 96 Oximetry 08/12/24 08/12/24 08/12/24 23:00 23:15 23:30 Temperature Pulse Rate 105 H 98 96 Respiratory Rate Blood Pressure 97/40 92/47 91/37 O2 Sat by Pulse Oximetry 08/12/24 08/13/24 08/13/24 23:45 00:00 00:04 Temperature Pulse Rate 96 97 93 Respiratory 18 Rate Blood Pressure 94/46 113/51 94/46 O2 Sat by Pulse 97 Oximetry 08/13/24 08/13/24 08/13/24 00:15 00:30 00:45 Temperature Pulse Rate 92 95 95 Respiratory Rate Blood Pressure 94/46 93/45 99/40 O2 Sat by Pulse 95 Oximetry 08/13/24 08/13/24 08/13/24 01:00 01:15 01:30 Temperature Pulse Rate 90 95 96 Respiratory Rate Blood Pressure 104/50 105/45 104/49 O2 Sat by Pulse 96 94 L 94 L Oximetry 08/13/24 08/13/24 08/13/24 01:45 02:00 02:15 Temperature Pulse Rate 98 98 91 Respiratory Rate Blood Pressure 111/46 111/51 100/50 O2 Sat by Pulse 94 L 94 L 93 L Oximetry 08/13/24 08/13/24 08/13/24 02:30 02:45 03:00 Temperature Pulse Rate 96 90 98 Respiratory Rate Blood Pressure 105/54 103/44 109/44 O2 Sat by Pulse 94 L 95 95 Oximetry 08/13/24 08/13/24 08/13/24 03:15 03:30 03:45 Temperature Pulse Rate 96 98 93 Respiratory Rate Blood Pressure 107/41 128/56 120/54 O2 Sat by Pulse 96 95 96 Oximetry 08/13/24 08/13/24 08/13/24 04:00 04:15 04:30 Temperature Pulse Rate 91 89 89 Respiratory Rate Blood Pressure 110/55 113/52 117/51 O2 Sat by Pulse 95 97 96 Oximetry 08/13/24 08/13/24 08/13/24 04:45 05:00 05:15 Temperature Pulse Rate 88 89 89 Respiratory Rate Blood Pressure 111/49 114/60 109/54 O2 Sat by Pulse 96 96 97 Oximetry 08/13/24 08/13/24 08/13/24 05:30 05:45 06:00 Temperature Pulse Rate 88 92 90 Respiratory Rate Blood Pressure 122/48 106/49 119/59 O2 Sat by Pulse 96 96 94 L Oximetry 08/13/24 08/13/24 08/13/24 06:15 06:30 06:45 Temperature 97.6 F Pulse Rate 87 88 82 Respiratory 17 Rate Blood Pressure 113/74 107/52 110/52 O2 Sat by Pulse 97 97 97 Oximetry EKG Findings - EKG Comments: EKG Findings:: EKG performed at 11: 21 sinus rhythm rate of 97 NV 125 QRS 93 QT/QTc 350/408 - EKG Results: EKG: interpreted by ERMD Procedures - Sepsis Sepsis Focused Exam #1 Time Sepsis Criteria Met: 13:36 Sepsis Focused Exam Date: 08/12/24 Sepsis Focused Exam Time: 14:01 Sepsis Focused Exam Complete: Yes Vital Signs & RN Notes Reviewed: Yes Capillary Refill: < 2 Seconds: Fingers, Toes Peripheral Pulses: Normal: Radial (R), Radial (L), Posterior Tibialis (R), Posterior Tibialis (L), Dorsalis Pedis (R), Dorsalis Pedis (L) Skin Color: Normal for Patient Respiratory Exam: normal lung sounds, respiratory distress Cardiovascular Exam: normal rhythm, tachycardia Medical Decision Making - Medical Decision Making Was pt. sent in by a medical professional or institution (, PA, LEAD CAREGIVER, urgent care, hospital, or group home...) When possible be specific @ -No Did you speak to anyone other than the patient for history (EMS, parent, family, police, friend...)? What history was obtained from this source @ -Family providing past medical history Did you review nursing and triage notes (agree or disagree)? Why? @ -I reviewed and agree with nursing and triage notes Were old charts reviewed (outside hosp., previous admission, EMS record, old EKG, old radiological studies, urgent care reports/EKG's, group home records)? Report findings @ -No old charts were reviewed Differential Diagnosis (chest pain, altered mental status, abdominal pain women, abdominal pain men, vaginal bleeding, weakness, fever, dyspnea, syncope, headache, dizziness, GI bleed, back pain, seizure, CVA, palpatations, mental health, musculoskeletal)? @ -Differential Weakness: Hypoglycemia, shock, sepsis, hyponatremia, anemia, infection, IL, ETOH, adverse medicine reaction, overdose, stroke, this is not meant to be an all-inclusive list. EKG interpreted by me (3pts min.). @ -As above X-rays interpreted by me (1pt min.). @ -Chest x-ray shows large left lower lobe pneumonia CT interpreted by me (1pt min.). @ -CT abdomen pelvis showing no acute intra-abdominal process, lower lobe pneumonia U/S interpreted by me (1pt. min.). @ -None done What testing was considered but not performed or refused? (CT, X-rays, U/S, labs)? Why? @ -None What meds were considered but not given or refused? Why? @ -None Did you discuss the management of the patient with other professionals (professionals i.e. , PA, LEAD CAREGIVER, lab, RT, psych nurse, psych social worker, partition assembler, teacher, conservation enforcement officer, spring encaser)? Give summary @ -Dr. Engel for admission Was smoking cessation discussed for >3mins.? @ -No Was critical care preformed (if so, how long)? @ -No Were there social determinants of health that impacted care today? How? (Homelessness, low income, unemployed, alcoholism, drug addiction, transportation, low edu. Level, literacy, decrease access to med. care, longterm, rehab)? @ -No Was there de-escalation of care discussed even if they declined (Discuss DNR or withdrawal of care, Hospice)? DNR status @ -No What co-morbidities impacted this encounter? (DM, HTN, Smoking, COPD, CAD, Cancer, CVA, ARF, Chemo, Hep., AIDS, mental health diagnosis, sleep apnea, morbid obesity)? @ -Diabetes Was patient admitted / discharged? Hospital course, mention meds given and route, prescriptions, significant lab abnormalities, going to OR and other pertinent info. @ -Admitted patient presented for recent hypoglycemia. Patient found to be hypotensive, tachycardic. Patient is found to have pneumonia, severe sepsis. Patient was given fluid bolus, started on dual antibiotic therapy, cultures were obtained. Blood pressure improved with a MAP greater than 60. Patient was admitted to stepdown given blood pressure stable at this time. Patient is well- appearing otherwise. Patient will have close observation repeat laboratory studies pulmonary consult. Undiagnosed new problem with uncertain prognosis? @ -No Drug Therapy requiring intensive monitoring for toxicity (Heparin, Nitro, Insulin, Cardizem)? @ -No Were any procedures done? @ -No Diagnosis/symptom? @ -Pneumonia, severe sepsis Acute, or Chronic, or Acute on Chronic? @ -Acute Uncomplicated (without systemic symptoms) or Complicated (systemic symptoms)? @ -Complicated Side effects of treatment? @ -No Exacerbation, Progression, or Severe Exacerbation? @ -No Poses a threat to life or bodily function? How? (Chest pain, USA, IL, pneumonia, PE, COPD, DKA, ARF, appy, cholecystitis, CVA, Diverticulitis, Homicidal, Suicidal, threat to staff... and all critical care pts) @ -[Yes sepsis endorgan failure - Lab Data Result diagrams: 08/12/24 11:00 08/12/24 11:00 Lab Results 08/12/24 08/12/24 08/12/24 Range/Units 10:43 11:00 11:00 WBC 10.7 H (3.8-10.6) k/uL RBC 3.98 (3.80-5.40) m/uL Hgb 11.1 L (11.4-16.0) gm/dL Hct 35.0 (34.0-46.0) % MCV 88.0 (80.0-100.0) fL MCH 28.0 (25.0-35.0) pg MCHC 31.8 (31.0-37.0) g/dL RDW 15.2 (11.5-15.5) % Plt Count 241 (150-450) k/uL MPV 8.1 Neutrophils % (Manual) 84 % Band Neuts % (Manual) 10 % Lymphocytes % (Manual) 4 % Monocytes % (Manual) 2 % Basophils % (Manual) 1 % Metamyelocytes % 1 % Neutrophils # (Manual) 10.00 H (1.3-7.7) k/uL Lymphocytes # (Manual) 0.43 L (1.0-4.8) k/uL Monocytes # (Manual) 0.21 (0-1.0) k/uL Basophils # (Manual) 0.11 (0-0.2) k/uL Metamyelocytes # (Man) 0.11 H (0) k/uL Nucleated RBCs 0 (0-0) /100 WBC Manual Slide Review Performed Sodium 138 (137-145) mmol/L Potassium 3.3 L (3.5-5.1) mmol/L Chloride 107 (98-107) mmol/L Carbon Dioxide 18 L (22-30) mmol/L Anion Gap 13 mmol/L BUN 26 H (7-17) mg/dL Creatinine 1.01 (0.52-1.04) mg/dL Est GFR (CKD-EPI)AfAm 61 (>60 ml/min/1.73 sqM) Est GFR (CKD-EPI)NonAf 53 (>60 ml/min/1.73 sqM) Glucose 245 H (74-99) mg/dL POC Glucose (mg/dL) 252 H (70-110) mg/dL POC Glu Land Clearer ID Roge Pickett Lactic Ac Sepsis Rflx Plasma Lactic Acid Jose De Jesus (0.7-2.0) mmol/L Calcium 9.7 (8.4-10.2) mg/dL Magnesium 1.6 (1.6-2.3) mg/dL Total Bilirubin 0.8 (0.2-1.3) mg/dL AST 29 (14-36) U/L ALT 28 (4-34) U/L Alkaline Phosphatase 41 (38-126) U/L Troponin I (0.000-0.034) ng/mL Total Protein 5.5 L (6.3-8.2) g/dL Albumin 3.3 L (3.5-5.0) g/dL Amylase 38 (30-110) U/L Lipase 31 (23-300) U/L Urine Color Urine Appearance (Clear) Urine pH (5.0-8.0) Ur Specific [place] (1.001-1.035) Urine Protein (Negative) Urine Glucose (UA) (Negative) Urine Ketones (Negative) Urine Blood (Negative) Urine Nitrite (Negative) Urine Bilirubin (Negative) Urine Urobilinogen (<2.0) mg/dL Ur Leukocyte Esterase (Negative) Urine RBC (0-5) /hpf Urine WBC (0-5) /hpf Ur Squamous Epith Cells (0-4) /hpf Urine Mucus (None) /hpf Acetone, Qual Negative (Negative) Influenza Type A (PCR) (Not Detectd) Influenza Type B (PCR) (Not Detectd) RSV (PCR) (Not Detectd) SARS-CoV-2 (PCR) (Not Detectd) 08/12/24 08/12/24 08/12/24 Range/Units 11:00 11:00 11:00 WBC (3.8-10.6) k/uL RBC (3.80-5.40) m/uL Hgb (11.4-16.0) gm/dL Hct (34.0-46.0) % MCV (80.0-100.0) fL MCH (25.0-35.0) pg MCHC (31.0-37.0) g/dL RDW (11.5-15.5) % Plt Count (150-450) k/uL MPV Neutrophils % (Manual) % Band Neuts % (Manual) % Lymphocytes % (Manual) % Monocytes % (Manual) % Basophils % (Manual) % Metamyelocytes % % Neutrophils # (Manual) (1.3-7.7) k/uL Lymphocytes # (Manual) (1.0-4.8) k/uL Monocytes # (Manual) (0-1.0) k/uL Basophils # (Manual) (0-0.2) k/uL Metamyelocytes # (Man) (0) k/uL Nucleated RBCs (0-0) /100 WBC Manual Slide Review Sodium (137-145) mmol/L Potassium (3.5-5.1) mmol/L Chloride (98-107) mmol/L Carbon Dioxide (22-30) mmol/L Anion Gap mmol/L BUN (7-17) mg/dL Creatinine (0.52-1.04) mg/dL Est GFR (CKD-EPI)AfAm (>60 ml/min/1.73 sqM) Est GFR (CKD-EPI)NonAf (>60 ml/min/1.73 sqM) Glucose (74-99) mg/dL POC Glucose (mg/dL) (70-110) mg/dL POC Glu Land Clearer ID Lactic Ac Sepsis Rflx Plasma Lactic Acid Jose De Jesus 6.9 H* (0.7-2.0) mmol/L Calcium (8.4-10.2) mg/dL Magnesium (1.6-2.3) mg/dL Total Bilirubin (0.2-1.3) mg/dL AST (14-36) U/L ALT (4-34) U/L Alkaline Phosphatase (38-126) U/L Troponin I 0.031 (0.000-0.034) ng/mL Total Protein (6.3-8.2) g/dL Albumin (3.5-5.0) g/dL Amylase (30-110) U/L Lipase (23-300) U/L Urine Color Urine Appearance (Clear) Urine pH (5.0-8.0) Ur Specific [place] (1.001-1.035) Urine Protein (Negative) Urine Glucose (UA) (Negative) Urine Ketones (Negative) Urine Blood (Negative) Urine Nitrite (Negative) Urine Bilirubin (Negative) Urine Urobilinogen (<2.0) mg/dL Ur Leukocyte Esterase (Negative) Urine RBC (0-5) /hpf Urine WBC (0-5) /hpf Ur Squamous Epith Cells (0-4) /hpf Urine Mucus (None) /hpf Acetone, Qual (Negative) Influenza Type A (PCR) Not Detected (Not Detectd) Influenza Type B (PCR) Not Detected (Not Detectd) RSV (PCR) Not Detected (Not Detectd) SARS-CoV-2 (PCR) Not Detected (Not Detectd) 08/12/24 08/12/24 Range/Units 11:07 11:39 WBC (3.8-10.6) k/uL RBC (3.80-5.40) m/uL Hgb (11.4-16.0) gm/dL Hct (34.0-46.0) % MCV (80.0-100.0) fL MCH (25.0-35.0) pg MCHC (31.0-37.0) g/dL RDW (11.5-15.5) % Plt Count (150-450) k/uL MPV Neutrophils % (Manual) % Band Neuts % (Manual) % Lymphocytes % (Manual) % Monocytes % (Manual) % Basophils % (Manual) % Metamyelocytes % % Neutrophils # (Manual) (1.3-7.7) k/uL Lymphocytes # (Manual) (1.0-4.8) k/uL Monocytes # (Manual) (0-1.0) k/uL Basophils # (Manual) (0-0.2) k/uL Metamyelocytes # (Man) (0) k/uL Nucleated RBCs (0-0) /100 WBC Manual Slide Review Sodium (137-145) mmol/L Potassium (3.5-5.1) mmol/L Chloride (98-107) mmol/L Carbon Dioxide (22-30) mmol/L Anion Gap mmol/L BUN (7-17) mg/dL Creatinine (0.52-1.04) mg/dL Est GFR (CKD-EPI)AfAm (>60 ml/min/1.73 sqM) Est GFR (CKD-EPI)NonAf (>60 ml/min/1.73 sqM) Glucose (74-99) mg/dL POC Glucose (mg/dL) (70-110) mg/dL POC Glu Land Clearer ID Lactic Ac Sepsis Rflx Y Plasma Lactic Acid Jose De Jesus (0.7-2.0) mmol/L Calcium (8.4-10.2) mg/dL Magnesium (1.6-2.3) mg/dL Total Bilirubin (0.2-1.3) mg/dL AST (14-36) U/L ALT (4-34) U/L Alkaline Phosphatase (38-126) U/L Troponin I (0.000-0.034) ng/mL Total Protein (6.3-8.2) g/dL Albumin (3.5-5.0) g/dL Amylase (30-110) U/L Lipase (23-300) U/L Urine Color Colorless Urine Appearance Clear (Clear) Urine pH 5.0 (5.0-8.0) Ur Specific [place] 1.023 (1.001-1.035) Urine Protein Trace H (Negative) Urine Glucose (UA) 4+ H (Negative) Urine Ketones 2+ H (Negative) Urine Blood Small H (Negative) Urine Nitrite Negative (Negative) Urine Bilirubin Negative (Negative) Urine Urobilinogen <2.0 (<2.0) mg/dL Ur Leukocyte Esterase Trace H (Negative) Urine RBC 2 (0-5) /hpf Urine WBC 9 H (0-5) /hpf Ur Squamous Epith Cells 1 (0-4) /hpf Urine Mucus Rare H (None) /hpf Acetone, Qual (Negative) Influenza Type A (PCR) (Not Detectd) Influenza Type B (PCR) (Not Detectd) RSV (PCR) (Not Detectd) SARS-CoV-2 (PCR) (Not Detectd) Critical Care Time Critical Care Time: Yes Total Critical Care Time: 35 Disposition Clinical Impression: Pneumonia, Sepsis Disposition: ADMITTED IP TO THIS HOSP Condition: Serious Time of Disposition: 15:41
[2024-08-12] MEDS: SODIUM CHLORIDE 0.9% 1,000 ML IV STA (11:14)
[2024-08-12] MEDS: ONDANSETRON 4 MG/2 ML VIAL IVP STA (11:14)
[2024-08-12 11:20] LABS: HGB 11.1 gm/dL (11.4-16.0); MCHC 31.8 g/dL (31.0-37.0); Mean Platelet Volume 8.1; Platelet Count 241 k/uL (150-450); RBC 3.98 m/uL (3.80-5.40); RDW 15.2 % (11.5-15.5); WBC 10.7 k/uL (3.8-10.6)
[2024-08-12 11:36] LABS: AST 29 U/L (14-36); African American GFR (CKD) 61 (>60 ml/min/1.73 sqM); Albumin 3.3 g/dL (3.5-5.0); Alkaline Phosphatase 41 U/L (38-126); Amylase 38 U/L (30-110); Anion Gap 13 mmol/L; Blood Urea Nitrogen 26 mg/dL (7-17); Calcium 9.7 mg/dL (8.4-10.2); Carbon Dioxide 18 mmol/L (22-30); Chloride 107 mmol/L (98-107); Glucose 245 mg/dL (74-99); Lipase 31 U/L (23-300); Magnesium 1.6 mg/dL (1.6-2.3); Non-African American GFR(CKD) 53 (>60 ml/min/1.73 sqM); Potassium 3.3 mmol/L (3.5-5.1); Sodium 138 mmol/L (137-145); Total Bilirubin 0.8 mg/dL (0.2-1.3); Total Protein 5.5 g/dL (6.3-8.2)
[2024-08-12 11:42] LABS: ALT 28 U/L (4-34)
--- NOTE | 2024-08-12 12:04 | XR ---
EXAMINATION TYPE: XR chest 2V DATE OF EXAM: 08/12/2024 COMPARISON: 12/05/2021 HISTORY: Shortness of breath TECHNIQUE: Frontal and lateral views of the chest are obtained. FINDINGS: Scattered senescent parenchymal changes noted. Hyperinflation compatible with COPD. Moderate Sized area of airspace consolidation left lower lobe felt to reflect a pneumonia. Correlate clinically. Heart size is stable. Mediastinal structures are stable and grossly unremarkable. No evidence for hilar prominence. Degenerative changes dorsal spine. IMPRESSION: 1. Moderate Sized area of airspace consolidation left lower lobe felt to reflect a pneumonia. Correla te clinically.
[2024-08-12 12:17] LABS: Appearance,Urine Clear (Clear); Bilirubin,Urine Negative (Negative); Blood,Urine Small (Negative); Color,Urine Colorless; Glucose,Urine (UA) 4+ (Negative); Leukocyte Esterase,Urine Trace (Negative); Mucus,Urine Rare /hpf; Nitrite,Urine Negative (Negative); Protein,Urine Trace (Negative); RBC,Urine 2 /hpf (0-5); Specific Gravity,Urine 1.023 (1.001-1.035); Squamous Epithelial Cell,Urine 1 /hpf (0-4); Urobilinogen,Urine <2.0 mg/dL (<2.0); WBC,Urine 9 /hpf (0-5)
--- NOTE | 2024-08-12 12:34 | CT ---
EXAMINATION TYPE: CT abdomen pelvis w con DATE OF EXAM: 08/12/2024 COMPARISON: 12/15/2023 HISTORY: ABDOMINAL PAIN, NAUSEA AND LOW BLOOD SUGAR CT DLP: 451.8 mGycm Automated exposure control for dose reduction was used. TECHNIQUE: Helical acquisition of images was performed from the lung bases through the pelvis. CONTRAST: Performed without Oral Contrast and with IV Contrast, patient injected with 60ml mL of Isovue 300. FINDINGS: There is a large new consolidative opacity in the left lung base likely an acute pneumonia. The gallbladder is normal without distention, wall thickening, pericholecystic fluid or gallstones. T here is no biliary ductal dilatation. There is no focal mass or organomegaly involving the liver, pancreas, spleen or adrenal glands. There is no solid renal mass or hydronephrosis and there is homogeneous contrast enhancement of the r enal parenchyma. The caliber the abdominal aorta is normal is no retroperitoneal adenopathy or hemorr samantha. The bowel loops are normal in caliber and there is no evidence of dilatation or obstruction. No infla mmatory changes are identified in the bowel wall or mesentery. There is no free intraperitoneal air or fluid. No pelvic mass, free fluid, abscess or adenopathy. 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 The osseous structures and soft tissues are intact. IMPRESSION: 1. Consolidative infiltrate in the left lung base likely an acute pneumonia. 2. No significant abnormality within the abdomen or pelvis. Incidental note of cholecystectomy and hy sterectomy.
[2024-08-12 12:36] LABS: Band Neutrophils % 10 %; Basophils # (M) 0.11 k/uL (0-0.2); Lymphocytes # (M) 0.43 k/uL (1.0-4.8); Metamyelocytes # (M) 0.11 k/uL (0); Metamyelocytes % 1 %; Monocytes # (M) 0.21 k/uL (0-1.0); Neutrophils % (M) 84 %; Nucleated Red Blood Cells 0 /100 WBC (0-0); Total Cells Counted 200
[2024-08-12] MEDS: SODIUM CHLORIDE 0.9% 500 ML 500 ML IV ONE (12:37)
[2024-08-12 12:44] LABS: Ketones,Urine 2+ (Negative)
[2024-08-12] MEDS: HYDROCORTISONE SUCCINATE 100 MG/2 ML VIAL IV STA (12:46)
[2024-08-12 12:49] LABS: VBG PH 7.25 (7.31-7.41)
[2024-08-12] MEDS ORDERED: DEXTROSE 50% SYRINGE 50 ML IVP PRN ×2 (13:25)
[2024-08-12] MEDS: AZITHROMYCIN 500 MG in SODIUM CHLORIDE 0.9% 250 ML IVPB STA (13:31)
[2024-08-12] MEDS: IPRATROPIUM-ALBUTEROL 3 ML NEB INHALATION SCH (15:31)
[2024-08-12] MEDS ORDERED: PNEUMONIA PROTOCOL UTILIZED 1 EACH MISC PO PRN (15:42)
[2024-08-12] MEDS: POTASSIUM BICARBONATE/CIT AC 20 MEQ TABLET.EFF PO ONE (17:24)
[2024-08-12 17:39] LABS: Glucose,Whole Blood 193 mg/dL (70-110)
[2024-08-12] MEDS: INSULIN ASPART (NovoLOG) 100 UNIT/ML VIAL SQ SCH (17:56)
[2024-08-12] MEDS: SODIUM CHLORIDE 0.9% 1,000 ML IV ONE (19:27)
[2024-08-12] MEDS: NOREPINEPHRINE 4 MG in SODIUM CHLORIDE 0.9% 250 ML IV SCH (20:19)
[2024-08-12 20:34] LABS: Glucose,Whole Blood 346 mg/dL (70-110)
[2024-08-12] MEDS ORDERED: Potassium Replacement Protocol 1 EACH MISC MISCELLANE PRN (23:13)
[2024-08-12] MEDS ORDERED: Magnesium Replacement Protocol 1 EACH MISC MISCELLANE PRN (23:13)
[2024-08-13 04:39] LABS: Glucose,Whole Blood 104 mg/dL (70-110)
[2024-08-13 07:12] LABS: African American GFR (CKD) 87 (>60 ml/min/1.73 sqM); Anion Gap 8 mmol/L; Blood Urea Nitrogen 20 mg/dL (7-17); Calcium 8.4 mg/dL (8.4-10.2); Carbon Dioxide 21 mmol/L (22-30); Chloride 112 mmol/L (98-107); Glucose 87 mg/dL (74-99); Magnesium 1.6 mg/dL (1.6-2.3); Non-African American GFR(CKD) 75 (>60 ml/min/1.73 sqM); Sodium 141 mmol/L (137-145)
[2024-08-13 07:36] LABS: Basophils % (A) 0 %; Eosinophils % (A) 0 %; HCT 31.1 % (34.0-46.0); HGB 10.2 gm/dL (11.4-16.0); Lymphocytes # (A) 1.3 k/uL (1.0-4.8); Lymphocytes % (A) 7 %; MCH 28.5 pg (25.0-35.0); MCHC 32.7 g/dL (31.0-37.0); MCV 87.2 fL (80.0-100.0); Mean Platelet Volume 8.6; Monocytes # (A) 0.6 k/uL (0-1.0); Monocytes % (A) 3 %; Neutrophils # (A) 16.5 k/uL (1.3-7.7); Neutrophils % (A) 89 %; Platelet Count 240 k/uL (150-450); RBC 3.57 m/uL (3.80-5.40); RDW 15.5 % (11.5-15.5); WBC 18.6 k/uL (3.8-10.6)
--- NOTE | 2024-08-13 07:44 | XR ---
EXAMINATION TYPE: XR chest 1V portable DATE OF EXAM: 08/13/2024 HISTORY: Shortness of breath. COMPARISON: 08/12/2024 TECHNIQUE: Single view of the chest is submitted. FINDINGS: Demonstrated are scattered senescent parenchymal change. Left lower lobe airspace consolidation persists unchanged. Correlate for pneumonia. The heart is stable. Hilar and mediastinal structures are within normal limits. Degenerative changes are seen of the dorsal spine. IMPRESSION: 1. Left lower lobe airspace consolidation persists unchanged. Correlate for pneumonia.
[2024-08-13] MEDS ORDERED: SODIUM CHLORIDE 0.9% 1,000 ML IV SCH (08:15)
[2024-08-13 08:36] LABS: Glucose,Whole Blood 105 mg/dL (70-110)
[2024-08-13] MEDS: SODIUM CHLORIDE 0.9% 1,000 ML IV ONE (09:00)
[2024-08-13] MEDS: SODIUM CHLORIDE 0.9% 1,000 ML IV SCH (09:01)
[2024-08-13 12:14] LABS: Glucose,Whole Blood 180 mg/dL (70-110)
[2024-08-13] MEDS ORDERED: NITROGLYCERIN SL TABS 0.4 MG TAB SUBLINGUAL PRN (13:12)
[2024-08-13] MEDS ORDERED: traMADol 50 MG TAB PO PRN (13:12)
--- NOTE | 2024-08-13 14:03 | P.CNPUL ---
History of Present Illness Consult date: 08/13/24 Requesting physician: Mateus Engel Reason for consult: pneumonia Chief complaint: Nausea and vomiting History of present illness: Is a 78-year-old female with history of multiple medical problems including asthma, hypertension, diabetes, dyslipidemia, obstructive sleep apnea syndrome, degenerative joint disease, patient presented to the ER yesterday with chief complaint of nausea vomiting and diarrhea. Patient was also complaining of some vague abdominal pain radiating to the back, shortness of breath, coffee-ground emesis, and melena. Patient apparently had chronic abdominal pain, and she had extensive abdominal workup by gastroenterology in the past. Apparently in the ER workup was done and she was found to have an extensive left lower lobe pneumonia patient had some shortness of breath, minimal cough. She was noted to have leukocytosis with WBC of 18.6 hemoglobin 10.2. She was also noted to have low potassium, and significantly elevated procalcitonin of 8.54. Patient was pl aced on antibiotics in the form of Rocephin and Zithromax. She was noted to be hypotensive and the patient was given a stress dose of hydrocortisone, she is normally on Cortef. Patient was admitted and this consult was initiated. Patient did not improve with fluid boluses and with hydrocortisone hence patient was placed on norepinephrine and she is presently on 0.03 mcg/kg/min, and she will be admitted to the ICU since the patient is requiring pressors. After evaluating the patient and knowing that the patient has history of renal insufficiency, I recommended Solu-Cortef 100 mg IV push every 8 hours for the next 24 hours. And will address the dose accordingly in the next 24 hours Review of Systems Constitutional: Denies chills, Denies fever Eyes: denies blurred vision, denies pain Ears, nose, mouth and throat: Denies headache, Denies sore throat Cardiovascular: Denies chest pain, Denies shortness of breath Respiratory: Some cough and some shortness of breath no fever no chills no hemoptysis and no chest pain Gastrointestinal: Multiple GI symptoms as noted in HPI, chronic abdominal pain Genitourinary: Denies dysuria, Denies hematuria Musculoskeletal: Weakness and fatigue Integumentary: Denies pruritus, Denies rash Neurological: Denies numbness, Denies weakness Psychiatric: Denies anxiety, Denies depression Endocrine: Generalized weakness and fatigue Past Medical History Past Medical History: Asthma, Diabetes Mellitus, Eye Disorder, GERD/Reflux, Hyperlipidemia, Hypertension, Sleep Apnea/CPAP/BIPAP Additional Past Medical History / Comment(s): NIDDM, vertigo, developmentally de layed, glaucoma, cpap at home History of Any Multi-Drug Resistant Organisms: MRSA Date of last positivie culture/infection: 10/05/21 MDRO Source:: MRSA SPUTUM Past Surgical History: Appendectomy, Hysterectomy, Joint Replacement, Orthopedic Surgery Additional Past Surgical History / Comment(s): bilateral knee replacement, right rotator cuff surgery, bilateral carpal tunnel, tumor removed right thigh, bilateral foot surg r/t gout and arthritis, shingles 11/20, cataracts removed bilaterally Past Anesthesia/Blood Transfusion Reactions: No Reported Reaction Additional Past Anesthesia/Blood Transfusion Reaction / Comment(s): Pt "alittle slow to wake up." Pt has never recieved blood. Past Psychological History: Anxiety Smoking Status: Never smoker - Past Family History Sister(s) Family Medical History: Cancer Additional Family Medical History / Comment(s): colon, lung, stomach Medications and Allergies Home Medications Medication Instructions Recorded Confirmed Type Furosemide [Lasix] 20 mg PO DAILY 12/14/14 08/12/24 History Meclizine [Antivert] 25 mg PO TID PRN 12/14/14 08/12/24 History Montelukast Sodium [Singulair] 10 mg PO DAILY 12/14/14 08/12/24 History Albuterol Nebulized [Ventolin 2.5 mg INHALATION RT-QID PRN 06/18/16 08/12/24 History Nebulized] Salmeterol Xinafoate [Serevent 1 puff INHALATION RT-BID 06/18/16 08/12/24 History Diskus] Sucralfate [Carafate] 1 gm PO TID-W/MEALS 05/19/19 08/12/24 History Hydrocortisone 10 mg PO HS 07/12/20 08/12/24 History Hydrocortisone [Cortef] 20 mg PO DAILY 07/12/20 08/12/24 History Latanoprost Ophth [Xalatan 0.005%] 1 drops RIGHT EYE HS 07/12/20 08/12/24 H istory traMADol HCL 50 mg PO BID PRN 09/29/21 08/12/24 History Apixaban [Eliquis] 5 mg PO BID #60 tab 10/03/21 08/12/24 Rx Aspirin 81 mg PO DAILY tab 10/09/21 08/12/24 Rx Nitroglycerin Sl Tabs [Nitrostat] 0.4 mg SUBLINGUAL Q5M PRN #100 tab 10/09/21 08/12/24 Rx Spironolactone [Aldactone] 25 mg PO DAILY #30 tab 10/09/21 08/12/24 Rx Omeprazole 40 mg PO DAILY 12/02/21 08/12/24 History lisinopriL [Zestril] 5 mg PO DAILY 12/02/21 08/12/24 History Empagliflozin [Jardiance] 10 mg PO DAILY 01/09/24 08/12/24 History Alendronate Sodium [Fosamax] 70 mg PO SA 08/12/24 08/12/24 History Atorvastatin Calcium [Lipitor] 40 mg PO HS 08/12/24 08/12/24 History Cholecalciferol [Vitamin D3 (10 10 mcg PO DAILY 08/12/24 08/12/24 History Mcg = 400 Iu)] Multivit-Min/FA/Lycopen/Lutein 1 tab PO DAILY 08/12/24 08/12/24 History [Centrum Silver Tablet] metFORMIN HCL [Glucophage] 1,000 mg PO BID-W/MEALS 08/12/24 08/12/24 History Allergies Allergy/AdvReac Type Severity Reaction Status Date / Time latex Allergy Rash/Hives Verified 08/12/24 13:00 sulfamethoxazole Allergy Rash/Hives Verified 08/12/24 13:00 [From Bactrim] trimethoprim [From Bactrim] Allergy Rash/Hives Verified 08/12/24 13:00 Physical Exam Vitals: Vital Signs Temp Pulse Resp BP Pulse Ox 08/13/24 13:45 106 H 123/64 96 08/13/24 13:30 110 H 117/58 96 08/13/24 13:15 101 H 107/51 96 08/13/24 13:00 103 H 99/45 96 08/13/24 12:45 104 H 122/49 95 08/13/24 11:57 92 08/13/24 11:47 94 08/13/24 11:45 94 08/13/24 11:15 108 H 117/52 08/13/24 11:00 103 H 107/44 97 08/13/24 10:45 103 H 93/50 96 08/13/24 10:30 100 111/45 95 08/13/24 10:15 100 112/48 95 08/13/24 10:00 104 H 106/58 96 08/13/24 09:45 107 H 113/80 94 L 08/13/24 09:30 109 H 126/48 93 L 08/13/24 09:15 108 H 117/47 92 L 08/13/24 09:00 109 H 18 110/54 93 L 08/13/24 08:50 100 08/13/24 08:42 95 08/13/24 08:39 93 08/13/24 08:00 92 108/54 93 L 08/13/24 07:00 87 110/52 95 08/13/24 06:45 82 110/52 97 08/13/24 06:30 88 107/52 97 08/13/24 06:15 97.6 F 87 17 113/74 97 08/13/24 06:00 90 119/59 95 08/13/24 05:45 92 106/49 96 08/13/24 05:30 88 122/48 96 08/13/24 05:15 89 109/54 97 08/13/24 05:00 89 114/60 96 08/13/24 04:45 88 111/49 96 08/13/24 04:30 89 117/51 96 08/13/24 04:15 89 113/52 97 08/13/24 04:00 91 110/55 95 08/13/24 03:45 93 120/54 96 08/13/24 03:30 98 128/56 95 08/13/24 03:15 96 107/41 96 08/13/24 03:00 98 109/44 95 08/13/24 02:45 90 103/44 95 08/13/24 02:30 96 105/54 94 L 08/13/24 02:15 91 100/50 93 L 08/13/24 02:00 98 111/51 94 L 08/13/24 01:45 98 111/46 94 L 08/13/24 01:30 96 104/49 94 L 08/13/24 01:15 95 105/45 94 L 08/13/24 01:00 90 104/50 96 08/13/24 00:45 95 99/40 95 08/13/24 00:30 95 93/45 08/13/24 00:15 92 94/46 08/13/24 00:04 93 94/46 08/13/24 00:00 97 113/51 08/12/24 23:45 96 18 94/46 97 08/12/24 23:30 96 91/37 08/12/24 23:15 98 92/47 08/12/24 23:00 105 H 97/40 08/12/24 22:45 113 H 109/49 08/12/24 22:30 100 91/48 96 08/12/24 22:15 106 H 108/55 96 08/12/24 22:01 109 H 106/53 95 08/12/24 21:24 105 H 08/12/24 21:13 106 H 08/12/24 21:10 105 H 112/54 95 08/12/24 20:24 112 H 121/57 93 L 08/12/24 19:12 106 H 28 H 81/43 95 08/12/24 19:00 107 H 85/47 08/12/24 18:45 108 H 94/50 08/12/24 18:30 112 H 85/63 08/12/24 18:15 110 H 20 88/50 94 L 08/12/24 18:00 109 H 83/67 95 08/12/24 17:45 109 H 20 83/54 96 08/12/24 17:30 103 H 100/51 97 08/12/24 17:00 112 H 97/51 92 L 08/12/24 16:30 107 H 101/56 91 L 08/12/24 16:00 108 H 99/56 91 L 08/12/24 15:43 108 H 08/12/24 15:31 105 H 08/12/24 15:30 107 H 94/45 91 L 08/12/24 15:21 109 H 20 94/45 08/12/24 15:01 112 H 18 105/56 08/12/24 14:54 106 H 18 90/60 08/12/24 14:45 111 H 22 89/48 91 L 08/12/24 14:30 112 H 88/52 93 L 08/12/24 14:15 114 H 20 89/65 93 L Intake and Output 08/12/24 08/13/24 08/13/24 22:59 06:59 14:59 Intake Total 1000 64.156 Output Total 400 325 Balance 600 -260.844 Intake: Intake, IV Titration 1000 64.156 Amount Norepinephrine 4 mg In 64.156 Sodium Chloride 0.9% 250 ml @ 0.03 MCG/KG/MIN 4. 822 mls/hr IV .Q24H RITESH Rx#:[id number] Sodium Chloride 0.9% 1, 1000 000 ml @ 999 mls/hr IV . Q1H1M STA Rx#:[id number] Output: Urine 400 325 Other: # Voids 1 Weight 42.184 kg GENERAL EXAM: Revealed 78-year-old female, frail looking, chronically ill, in no distress, on nasal cannula/2 L HEAD: Normocephalic/atraumatic. EYES: Normal reaction of pupils, equal size. Conjunctiva pink, sclera white. NOSE: Clear with pink turbinates. THROAT: No erythema or exudates. NECK: No masses, no JVD, no thyroid enlargement, no adenopathy. CHEST: No chest wall deformity. Symmetrical expansion. LUNGS: Diminished breath sounds at the bases with crackles at the left base no rhonchi no wheezes CVS: Regular rate and rhythm, normal S1 and S2, no gallops, no murmurs, no rubs ABDOMEN: Soft, nontender. No hepatosplenomegaly, normal bowel sounds, no guarding or rigidity. EXTREMITIES: No clubbing, no edema, no cyanosis, 2+ pulses and upper and lower extremities. MUSCULOSKELETAL: Muscle strength and tone normal. SKIN: No rashes CENTRAL NERVOUS SYSTEM: Alert and oriented -3. No focal deficits, tone is normal in all 4 extremities. PSYCHIATRIC: Alert and oriented -3. Appropriate affect. Intact judgment and insight. Results - Laboratory Findings CBC and BMP: 08/13/24 05:54 08/13/24 05:54 Abnormal lab findings: Abnormal Labs 08/12/24 08/12/24 08/12/24 10:43 11:00 11:00 WBC 10.7 H RBC Hgb 11.1 L Hct Neutrophils # Neutrophils # (Manual) 10.00 H Lymphocytes # (Manual) 0.43 L Metamyelocytes # (Man) 0.11 H VBG pH VBG HCO3 Potassium 3.3 L Chloride Carbon Dioxide 18 L BUN 26 H Glucose 245 H POC Glucose (mg/dL) 252 H Plasma Lactic Acid Jose De Jesus Total Protein 5.5 L Albumin 3.3 L Procalcitonin Urine Protein Urine Glucose (UA) Urine Ketones Urine Blood Ur Leukocyte Esterase Urine WBC Urine Mucus 08/12/24 08/12/24 08/12/24 11:00 11:07 12:36 WBC RBC Hgb Hct Neutrophils # Neutrophils # (Manual) Lymphocytes # (Manual) Metamyelocytes # (Man) VBG pH 7.25 L VBG HCO3 19 L Potassium Chloride Carbon Dioxide BUN Glucose POC Glucose (mg/dL) Plasma Lactic Acid Jose De Jesus 6.9 H* Total Protein Albumin Procalcitonin Urine Protein Trace H Urine Glucose (UA) 4+ H Urine Ketones 2+ H Urine Blood Small H Ur Leukocyte Esterase Trace H Urine WBC 9 H Urine Mucus Rare H 08/12/24 08/12/24 08/12/24 13:29 17:37 18:42 WBC RBC Hgb Hct Neutrophils # Neutrophils # (Manual) Lymphocytes # (Manual) Metamyelocytes # (Man) VBG pH VBG HCO3 Potassium Chloride Carbon Dioxide BUN Glucose POC Glucose (mg/dL) 193 H Plasma Lactic Acid Jose De Jesus 5.1 H* 5.8 H* Total Protein Albumin Procalcitonin Urine Protein Urine Glucose (UA) Urine Ketones Urine Blood Ur Leukocyte Esterase Urine WBC Urine Mucus 08/12/24 08/12/24 08/13/24 20:32 22:09 01:57 WBC RBC Hgb Hct Neutrophils # Neutrophils # (Manual) Lymphocytes # (Manual) Metamyelocytes # (Man) VBG pH VBG HCO3 Potassium Chloride Carbon Dioxide BUN Glucose POC Glucose (mg/dL) 346 H Plasma Lactic Acid Jose De Jesus 6.0 H* 3.3 H* Total Protein Albumin Procalcitonin Urine Protein Urine Glucose (UA) Urine Ketones Urine Blood Ur Leukocyte Esterase Urine WBC Urine Mucus 08/13/24 08/13/24 08/13/24 05:54 05:54 05:54 WBC 18.6 H RBC 3.57 L Hgb 10.2 L Hct 31.1 L Neutrophils # 16.5 H Neutrophils # (Manual) Lymphocytes # (Manual) Metamyelocytes # (Man) VBG pH VBG HCO3 Potassium 3.0 L Chloride 112 H Carbon Dioxide 21 L BUN 20 H Glucose POC Glucose (mg/dL) Plasma Lactic Acid Jose De Jesus Total Protein Albumin Procalcitonin 8.54 H Urine Protein Urine Glucose (UA) Urine Ketones Urine Blood Ur Leukocyte Esterase Urine WBC Urine Mucus 08/13/24 12:12 WBC RBC Hgb Hct Neutrophils # Neutrophils # (Manual) Lymphocytes # (Manual) Metamyelocytes # (Man) VBG pH VBG HCO3 Potassium Chloride Carbon Dioxide BUN Glucose POC Glucose (mg/dL) 180 H Plasma Lactic Acid Jose De Jesus Total Protein Albumin Procalcitonin Urine Protein Urine Glucose (UA) Urine Ketones Urine Blood Ur Leukocyte Esterase Urine WBC Urine Mucus - Diagnostic Findings Chest x-ray: image reviewed (As noted in HPI) Assessment and Plan Assessment: Impression: Acute hypoxic respiratory failure secondary to extensive left lower lobe pneumonia, community-acquired History of adrenal insufficiency Hypotension could be secondary to adrenal insufficiency could also be related to sepsis and septic shock but this is felt to be less likely History of coronary artery disease History of Takotsubo syndrome History of obstructive sleep apnea syndrome Benign essential hypertension Type 2 diabetes History of gout Dyslipidemia Degenerative joint disease Recommendation: Agree with antibiotics including Rocephin and Zithromax Patient received stress doses of hydrocortisone knowing that she does have history of adrenal insufficiency Continue IV fluids Continue bronchodilators Resume home meds Continue norepinephrine and titrate accordingly Admit patient to ICU Will continue to follow Time with Patient: Greater than 30
[2024-08-13] MEDS: PANTOPRAZOLE 40 MG TABLET PO SCH (14:18)
[2024-08-13] MEDS: POTASSIUM CHLORIDE ER 20 MEQ TAB.ER PO SCH (14:18)
[2024-08-13] MEDS: MAGNESIUM SULFATE-D5W PMX 1 GM in DEXTROSE/WATER 1 100ML.BAG IVPB ONE (14:18)
[2024-08-13] MEDS: ASPIRIN 81 MG PO SCH (14:19)
[2024-08-13 15:23] LABS: Glucose,Whole Blood 276 mg/dL (70-110)
--- NOTE | 2024-08-13 15:38 | P.HPIM ---
History of Present Illness H&P Date: 08/13/24 Chief Complaint: nausea ,vomiting, diarrhea This is a 78-year-old female with past medical history significant for adrenal insufficiency, obstructive sleep apnea-uses CPAP at home, asthma, diabetes mellitus, gastroesophageal reflux disease, glaucoma, nonischemic cardiomyopathy, Takotsubo syndrome, CAD,NSTEMI, hypertension, dyslipidemia, degenerative joint disease and multiple other medical issues presented to the ER with complaints of nausea ,vomiting , diarrhea, abdominal pain , coffee-ground emesis and some maroon stools ,low blood sugars, accompanied by shortness of breath, yesterday. Patient consumed sugar to compensate with glucose 252 on admission. Recent EGD/ colonoscopy 01/13/2024 reported mild antral gastritis, small hiatal hernia, scattered sigmoid diverticula with no evidence of colorectal neoplasia. denies any chest pain, palpitations. On admission hypotensive, received IV fluids, hydrocortisone-stress dose and eventually placed on Levophed. chest x-ray reported moderate-sized area of airspace consolidation of left lower lobe felt to reflect a pneumonia. CT of abdomen pelvis reported consolidative infiltrate in the left lung base likely acute pneumonia, no significant abnormality within the abdomen or pelvis. afebrile, WBC 18.6. Lactic acid on admission 6 , resolved with IV fluid hydration ,1.8 .hemoglobin 10.2, platelets 240. Blood sugars uncontrolled, negative acetone, currently low 100s.Renal function improving bicarb 21, BUN now 28, creatinine 0.76. UA negative. Viral studies negative. Ceftriaxone and azithromycin initiated. Review of Systems ROS Statement: Those systems with pertinent positive or pertinent negative responses have been documented in the HPI. ROS Other: All systems not noted in ROS Statement are negative. Past Medical History Past Medical History: Asthma, Diabetes Mellitus, Eye Disorder, GERD/Reflux, Hyperlipidemia, Hypertension, Sleep Apnea/CPAP/BIPAP Additional Past Medical History / Comment(s): NIDDM, vertigo, developmentally delayed, glaucoma, cpap at home History of Any Multi-Drug Resistant Organisms: MRSA Date of last positivie culture/infection: 10/05/21 MDRO Source:: MRSA SPUTUM Past Surgical History: Appendectomy, Hysterectomy, Joint Replacement, Orthopedic Surgery Additional Past Surgical History / Comment(s): bilateral knee replacement, right rotator cuff surgery, bilateral carpal tunnel, tumor removed right thigh, bilateral foot surg r/t gout and arthritis, shingles 11/20, cataracts removed bilaterally Past Anesthesia/Blood Transfusion Reactions: No Reported Reaction Additional Past Anesthesia/Blood Transfusion Reaction / Comment(s): Pt "alittle slow to wake up." Pt has never recieved blood. Past Psychological History: Anxiety Smoking Status: Never smoker - Past Family History Sister(s) Family Medical History: Cancer Additional Family Medical History / Comment(s): colon, lung, stomach Medications and Allergies Home Medications Medication Instructions Recorded Confirmed Type Furosemide [Lasix] 20 mg PO DAILY 12/14/14 08/12/24 History Meclizine [Antivert] 25 mg PO TID PRN 12/14/14 08/12/24 History Montelukast Sodium [Singulair] 10 mg PO DAILY 12/14/14 08/12/24 History Albuterol Nebulized [Ventolin 2.5 mg INHALATION RT-QID PRN 06/18/16 08/12/24 History Nebulized] Salmeterol Xinafoate [Serevent 1 puff INHALATION RT-BID 06/18/16 08/12/24 Histo ry Diskus] Sucralfate [Carafate] 1 gm PO TID-W/MEALS 05/19/19 08/12/24 History Hydrocortisone 10 mg PO HS 07/12/20 08/12/24 History Hydrocortisone [Cortef] 20 mg PO DAILY 07/12/20 08/12/24 History Latanoprost Ophth [Xalatan 0.005%] 1 drops RIGHT EYE HS 07/12/20 08/12/24 History traMADol HCL 50 mg PO BID PRN 09/29/21 08/12/24 History Apixaban [Eliquis] 5 mg PO BID #60 tab 10/03/21 08/12/24 Rx Aspirin 81 mg PO DAILY tab 10/09/21 08/12/24 Rx Nitroglycerin Sl Tabs [Nitrostat] 0.4 mg SUBLINGUAL Q5M PRN #100 tab 10/09/21 08/12/24 Rx Spironolactone [Aldactone] 25 mg PO DAILY #30 tab 10/09/21 08/12/24 Rx Omeprazole 40 mg PO DAILY 12/02/21 08/12/24 History lisinopriL [Zestril] 5 mg PO DAILY 12/02/21 08/12/24 History Empagliflozin [Jardiance] 10 mg PO DAILY 01/09/24 08/12/24 History Alendronate Sodium [Fosamax] 70 mg PO SA 08/12/24 08/12/24 History Atorvastatin Calcium [Lipitor] 40 mg PO HS 08/12/24 08/12/24 History Cholecalciferol [Vitamin D3 (10 10 mcg PO DAILY 08/12/24 08/12/24 History Mcg = 400 Iu)] Multivit-Min/FA/Lycopen/Lutein 1 tab PO DAILY 08/12/24 08/12/24 History [Centrum Silver Tablet] metFORMIN HCL [Glucophage] 1,000 mg PO BID-W/MEALS 08/12/24 08/12/24 History Allergies Allergy/AdvReac Type Severity Reaction Status Date / Time latex Allergy Rash/Hives Verified 08/12/24 13:00 sulfamethoxazole Allergy Rash/Hives Verified 08/12/24 13:00 [From Bactrim] trimethoprim [From Bactrim] Allergy Rash/Hives Verified 08/12/24 13:00 Physical Exam Vitals: Vital Signs Temp Pulse Resp BP Pulse Ox 08/13/24 11:57 92 08/13/24 11:47 94 08/13/24 11:45 94 08/13/24 11:15 108 H 117/52 08/13/24 11:00 103 H 107/44 97 08/13/24 10:45 103 H 93/50 96 08/13/24 10:30 100 111/45 95 08/13/24 10:15 100 112/48 95 08/13/24 10:00 104 H 106/58 96 08/13/24 09:45 107 H 113/80 94 L 08/13/24 09:30 109 H 126/48 93 L 08/13/24 09:15 108 H 117/47 92 L 08/13/24 09:00 109 H 18 110/54 93 L 08/13/24 08:50 100 08/13/24 08:42 95 08/13/24 08:39 93 08/13/24 08:00 92 108/54 93 L 08/13/24 07:00 87 110/52 95 08/13/24 06:45 82 110/52 97 08/13/24 06:30 88 107/52 97 08/13/24 06:15 97.6 F 87 17 113/74 97 08/13/24 06:00 90 119/59 95 08/13/24 05:45 92 106/49 96 08/13/24 05:30 88 122/48 96 08/13/24 05:15 89 109/54 97 08/13/24 05:00 89 114/60 96 08/13/24 04:45 88 111/49 96 08/13/24 04:30 89 117/51 96 08/13/24 04:15 89 113/52 97 08/13/24 04:00 91 110/55 95 08/13/24 03:45 93 120/54 96 08/13/24 03:30 98 128/56 95 08/13/24 03:15 96 107/41 96 08/13/24 03:00 98 109/44 95 08/13/24 02:45 90 103/44 95 08/13/24 02:30 96 105/54 94 L 08/13/24 02:15 91 100/50 93 L 08/13/24 02:00 98 111/51 94 L 08/13/24 01:45 98 111/46 94 L 08/13/24 01:30 96 104/49 94 L 08/13/24 01:15 95 105/45 94 L 08/13/24 01:00 90 104/50 96 08/13/24 00:45 95 99/40 95 08/13/24 00:30 95 93/45 08/13/24 00:15 92 94/46 08/13/24 00:04 93 94/46 08/13/24 00:00 97 113/51 08/12/24 23:45 96 18 94/46 97 08/12/24 23:30 96 91/37 08/12/24 23:15 98 92/47 08/12/24 23:00 105 H 97/40 08/12/24 22:45 113 H 109/49 08/12/24 22:30 100 91/48 96 08/12/24 22:15 106 H 108/55 96 08/12/24 22:01 109 H 106/53 95 08/12/24 21:24 105 H 08/12/24 21:13 106 H 08/12/24 21:10 105 H 112/54 95 08/12/24 20:24 112 H 121/57 93 L 09/12/24 19:12 106 H 28 H 81/43 95 08/12/24 19:00 107 H 85/47 08/12/24 18:45 108 H 94/50 08/12/24 18:30 112 H 85/63 08/12/24 18:15 110 H 20 88/50 94 L 08/12/24 18:00 109 H 83/67 95 08/12/24 17:45 109 H 20 83/54 96 08/12/24 17:30 103 H 100/51 97 08/12/24 17:00 112 H 97/51 92 L 08/12/24 16:30 107 H 101/56 91 L 08/12/24 16:00 108 H 99/56 91 L 08/12/24 15:43 108 H 08/12/24 15:31 105 H 08/12/24 15:30 107 H 94/45 91 L 08/12/24 15:21 109 H 20 94/45 08/12/24 15:01 112 H 18 105/56 08/12/24 14:54 106 H 18 90/60 08/12/24 14:45 111 H 22 89/48 91 L 08/12/24 14:30 112 H 88/52 93 L 08/12/24 14:15 114 H 20 89/65 93 L 08/12/24 13:00 113 H 121/62 98 Intake and Output 08/12/24 08/13/24 08/13/24 22:59 06:59 14:59 Intake Total 1000 64.156 Output Total 400 325 Balance 600 -260.844 Intake: Intake, IV Titration 1000 64.156 Amount Norepinephrine 4 mg In 64.156 Sodium Chloride 0.9% 250 ml @ 0.03 MCG/KG/MIN 4. 822 mls/hr IV .Q24H [facility] Rx#:[id number] Sodium Chloride 0.9% 1, 1000 000 ml @ 999 mls/hr IV . Q1H1M [facility] Rx#:[id number] Output: Urine 400 325 Other: # Voids 1 Weight 42.184 kg PHYSICAL EXAM: VITAL SIGNS: As above GENERAL: Frail elderly female, sitting up on stretcher, no acute distress HEENT: Normocephalic, atraumatic, conjunctivae normal. eyes normal. Oral mucosa moist NECK: Supple, no JVD. No thyroid enlargement. No LNs CARDIOVASCULAR: S1, S2 regular. Tachycardic, no murmur RESPIRATION: Unlabored, equal air entry, breath sounds diminished in the bases with fine left basilar crackles. ABDOMEN: Soft, nondistended, diffuse tenderness. No guarding. no masses palpable.Bowel sounds heard. LEGS: No edema. no swelling. NERVOUS SYSTEM: Cranial N 2-12 grossly normal. No focal deficits. Strength and sensation grossly intact. Skin: Warm and dry ,no rash Results CBC & Chem 7: 08/13/24 05:54 08/13/24 05:54 Labs: Abnormal Lab Results - Last 24 Hours (Table) 08/12/24 08/12/24 08/12/24 Range/Units 12:36 13:29 17:37 WBC (3.8-10.6) k/uL RBC (3.80-5.40) m/uL Hgb (11.4-16.0) gm/dL Hct (34.0-46.0) % Neutrophils # (1.3-7.7) k/uL VBG pH 7.25 L (7.31-7.41) VBG HCO3 19 L (24-28) mmol/L Potassium (3.5-5.1) mmol/L Chloride (98-107) mmol/L Carbon Dioxide (22-30) mmol/L BUN (7-17) mg/dL POC Glucose (mg/dL) 193 H (70-110) mg/dL Plasma Lactic Acid Jose De Jesus 5.1 H* (0.7-2.0) mmol/L Procalcitonin (0.02-0.50) ng/mL 08/12/24 08/12/24 08/12/24 Range/Units 18:42 20:32 22:09 WBC (3.8-10.6) k/uL RBC (3.80-5.40) m/uL Hgb (11.4-16.0) gm/dL Hct (34.0-46.0) % Neutrophils # (1.3-7.7) k/uL VBG pH (7.31-7.41) VBG HCO3 (24-28) mmol/L Potassium (3.5-5.1) mmol/L Chloride (98-107) mmol/L Carbon Dioxide (22-30) mmol/L BUN (7-17) mg/dL POC Glucose (mg/dL) 346 H (70-110) mg/dL Plasma Lactic Acid Jose De Jesus 5.8 H* 6.0 H* (0.7-2.0) mmol/L Procalcitonin (0.02-0.50) ng/mL 08/13/24 08/13/24 08/13/24 Range/Units 01:57 05:54 05:54 WBC 18.6 H (3.8-10.6) k/uL RBC 3.57 L (3.80-5.40) m/uL Hgb 10.2 L (11.4-16.0) gm/dL Hct 31.1 L (34.0-46.0) % Neutrophils # 16.5 H (1.3-7.7) k/uL VBG pH (7.31-7.41) VBG HCO3 (24-28) mmol/L Potassium 3.0 L (3.5-5.1) mmol/L Chloride 112 H (98-107) mmol/L Carbon Dioxide 21 L (22-30) mmol/L BUN 20 H (7-17) mg/dL POC Glucose (mg/dL) (70-110) mg/dL Plasma Lactic Acid Jose De Jesus 3.3 H* (0.7-2.0) mmol/L Procalcitonin (0.02-0.50) ng/mL 08/13/24 08/13/24 Range/Units 05:54 12:12 WBC (3.8-10.6) k/uL RBC (3.80-5.40) m/uL Hgb (11.4-16.0) gm/dL Hct (34.0-46.0) % Neutrophils # (1.3-7.7) k/uL VBG pH (7.31-7.41) VBG HCO3 (24-28) mmol/L Potassium (3.5-5.1) mmol/L Chloride (98-107) mmol/L Carbon Dioxide (22-30) mmol/L BUN (7-17) mg/dL POC Glucose (mg/dL) 180 H (70-110) mg/dL Plasma Lactic Acid Jose De Jesus (0.7-2.0) mmol/L Procalcitonin 8.54 H (0.02-0.50) ng/mL Thrombosis Risk Factor Assmnt - Choose All That Apply Any of the Below Risk Factors Present?: No Other Risk Factors: Yes Each Risk Factor Represents 3 Points: Age 75 years or older Thrombosis Risk Factor Assessment Total Risk Factor Score: 3 Thrombosis Risk Factor Assessment Level: Moderate Risk Assessment and Plan Assessment: Sepsis secondary to acute left lower lobe pneumonia, community-acquired Hypotension and tachycardia secondary to the above, adrenal insufficiency Acute hypoxic respiratory failure secondary to all the above Diabetes mellitus II, hemoglobin A1c pending History of adrenal insufficient History of nonischemic cardiomyopathy EF 20-25% taku subo syndrome Mild to moderate pulmonary hypertension Chronic paroxysmal atrial fibrillation Hypertension Hyperlipidemia Gastroesophageal reflux disease Obstructive Sleep apnea, with CPAP, at home Anxiety Mild protein calorie malnutrition Hypokalemia Hypomagnesemia Plan: Continue on current medication regime, monitoring and symptomatic treatment. Animal Sticker for ICU management, currently requiring pressor support. IV fluid hydration. blood cultures, Pro-Juan pending .continue on azithromycin and Rocephin. Electrolyte supplementation ordered. Nebulized bronchodilators. Hemoglobin A1c ordered. The impression and plan of care has been dictated as directed. : I performed a history and examination of this patient, discussed the same with the dictator. I agree with the dictator's note ,documented as a scribe. Any additional findings or plans will be noted.
[2024-08-13] MEDS: HYDROCORTISONE 20 MG TAB PO SCH (15:49)
[2024-08-13] MEDS: CHOLECALCIFEROL 10 MCG (400 IU) TABLET PO SCH (17:05)
[2024-08-13] MEDS: DAPAGLIFLOZIN PROPANEDIOL 5 MG TABLET PO SCH (17:05)
[2024-08-13] MEDS: MONTELUKAST 10 MG TAB PO SCH (17:05)
[2024-08-13] MEDS: HYDROCORTISONE SUCCINATE 100 MG/2 ML VIAL IV SCH (17:05)
[2024-08-13] MEDS: SUCRALFATE 1 GM TAB PO SCH (17:06)
[2024-08-13] MEDS: AZITHROMYCIN 500 MG in SODIUM CHLORIDE 0.9% 250 ML IVPB SCH (17:15)
[2024-08-13 20:01] LABS: Glucose,Whole Blood 262 mg/dL (70-110)
[2024-08-13] MEDS: ATORVASTATIN 40 MG TAB PO SCH (20:33)
[2024-08-13] MEDS: APIXABAN 5 MG TAB PO SCH (20:33)
[2024-08-13] MEDS: ONDANSETRON 4 MG/2 ML VIAL IVP PRN (20:34)
[2024-08-13] MEDS: LATANOPROST 0.005% OPHTH DROPS 2.5 ML BTL RIGHT EYE SCH (20:49)
[2024-08-13] MEDS ORDERED: HYDROCORTISONE 10 MG TAB PO SCH (21:00)
[2024-08-13] MEDS: FORMOTEROL FUMARATE 20 MCG/2 ML NEBU INHALATION SCH (21:05)
[2024-08-14 04:46] LABS: Basophils % (A) 0 %; Eosinophils % (A) 0 %; HCT 35.7 % (34.0-46.0); HGB 10.9 gm/dL (11.4-16.0); Hypochromasia Marked; Lymphocytes # (A) 0.3 k/uL (1.0-4.8); Lymphocytes % (A) 2 %; MCH 27.6 pg (25.0-35.0); MCHC 30.5 g/dL (31.0-37.0); MCV 90.4 fL (80.0-100.0); Mean Platelet Volume 8.1; Monocytes # (A) 0.3 k/uL (0-1.0); Monocytes % (A) 2 %; Neutrophils # (A) 13.5 k/uL (1.3-7.7); Neutrophils % (A) 96 %; Platelet Count 209 k/uL (150-450); RBC 3.95 m/uL (3.80-5.40); RDW 15.2 % (11.5-15.5); WBC 14.2 k/uL (3.8-10.6)
[2024-08-14 05:01] LABS: Potassium 5.2 mmol/L (3.5-5.1)
[2024-08-14 05:03] LABS: African American GFR (CKD) >90 (>60 ml/min/1.73 sqM); Anion Gap 9 mmol/L; Blood Urea Nitrogen 16 mg/dL (7-17); Calcium 8.7 mg/dL (8.4-10.2); Carbon Dioxide 16 mmol/L (22-30); Chloride 119 mmol/L (98-107); Glucose 163 mg/dL (74-99); Magnesium 2.3 mg/dL (1.6-2.3); Non-African American GFR(CKD) 88 (>60 ml/min/1.73 sqM); Sodium 144 mmol/L (137-145)
[2024-08-14 06:31] LABS: Glucose,Whole Blood 187 mg/dL (70-110)
[2024-08-14] MEDS: FUROSEMIDE 20 MG TAB PO SCH (07:58)
[2024-08-14] MEDS: IPRATROPIUM-ALBUTEROL 3 ML NEB INHALATION SCH (09:09)
--- NOTE | 2024-08-14 11:13 | P.PN ---
Subjective Progress Note Date: 08/14/24 Principal diagnosis: Acute hypoxic respiratory failure secondary to extensive left lower lobe pneumonia, community-acquired Is a 78-year-old female with history of multiple medical problems including asthma, hypertension, diabetes, dyslipidemia, obstructive sleep apnea syndrome, degenerative joint disease, patient presented to the ER yesterday with chief complaint of nausea vomiting and diarrhea. Patient was also complaining of some vague abdominal pain radiating to the back, shortness of breath, coffee-ground emesis, and melena. Patient apparently had chronic abdominal pain, and she had extensive abdominal workup by gastroenterology in the past. Apparently in the ER workup was done and she was found to have an extensive left lower lobe pneumonia patient had some shortness of breath, minimal cough. She was noted to have leukocytosis with WBC of 18.6 hemoglobin 10.2. She was also noted to have low potassium, and significantly elevated procalcitonin of 8.54. Patient was placed on antibiotics in the form of Rocephin and Zithromax. She was noted to be hypotensive and the patient was given a stress dose of hydrocortisone, she is normally on Cortef. Patient was admitted and this consult was initiated. Patient did not improve with fluid boluses and with hydrocortisone hence patient was placed on norepinephrine and she is presently on 0.03 mcg/kg/min, and she will be admitted to the ICU since the patient is requiring pressors. After evaluating the patient and knowing that the patient has history of renal insufficiency, I recommended Solu-Cortef 100 mg IV push every 8 hours for the next 24 hours. And will address the dose accordingly in the next 24 hours Patient was evaluated today on 08/14/2024, remains in the ICU, I saw this patient yesterday on consultation, she was hypotensive in the ER requiring norepinephrine briefly. Patient was admitted with left lower lobe pneumonia and what seems to be an relative adrenal insufficiency responded well to stress doses of hydrocortisone. Patient is now off pressors, she did receive fluid boluses, and remains on Solu-Cortef 100 mg IV push every 8 hours. Her blood pressure is much better today, patient is feeling better, breathing easier, she is empirically on antibiotics for her left lower lobe pneumonia. WBC count is 14.2 hemoglobin 10.9 basic metabolic profile is normal bicarb is 16 BUN is normal creatinine is now Objective - Vital Signs Vital signs: Vital Signs Temp 97.6 F 08/14/24 08:00 Pulse 85 08/14/24 09:33 Resp 22 08/14/24 08:00 BP 148/79 08/14/24 08:00 Pulse Ox 97 08/14/24 08:00 FiO2 Intake & Output 08/13/24 08/14/24 08/14/24 18:59 06:59 18:59 Intake Total 767.968 825 75 Output Total 140 Balance 767.968 685 75 Weight 42.184 kg 48 kg Intake: IV 725 825 75 Azithromycin 500 mg In 250 Sodium Chloride 0.9% 250 ml @ 250 mls/hr IVPB Q24H [facility] Rx#:[id number] Magnesium Sulfate-D5w Pmx 100 1 gm In Dextrose/Water 1 100ml.bag @ 100 mls/hr IVPB ONCE ONE Rx#: [id number] Sodium Chloride 0.9% 1, 375 825 75 000 ml @ 75 mls/hr IV . [id number] [facility] Rx#:[id number] Intake, IV Titration 42.968 Amount Norepinephrine 4 mg In 42.968 Sodium Chloride 0.9% 250 ml @ 0.03 MCG/KG/MIN 4. 822 mls/hr IV .Q24H [facility] Rx#:[id number] Output: Urine 140 Other: Voiding Method External Catheter External Catheter # Voids 1 1 # Bowel Movements 1 - Exam GENERAL EXAM: Revealed 78-year-old female, frail looking, chronically ill, in no distress, on nasal cannula/2 L HEAD: Normocephalic/atraumatic. EYES: Normal reaction of pupils, equal size. Conjunctiva pink, sclera white. NOSE: Clear with pink turbinates. THROAT: No erythema or exudates. NECK: No masses, no JVD, no thyroid enlargement, no adenopathy. CHEST: No chest wall deformity. Symmetrical expansion. LUNGS: Diminished breath sounds at the bases with crackles at the left base no rhonchi no wheezes CVS: Regular rate and rhythm, normal S1 and S2, no gallops, no murmurs, no rubs ABDOMEN: Soft, nontender. No hepatosplenomegaly, normal bowel sounds, no guarding or rigidity. EXTREMITIES: No clubbing, no edema, no cyanosis, 2+ pulses and upper and lower extremities. MUSCULOSKELETAL: Muscle strength and tone normal. SKIN: No rashes CENTRAL NERVOUS SYSTEM: Alert and oriented -3. No focal deficits, tone is normal in all 4 extremities. PSYCHIATRIC: Alert and oriented -3. Appropriate affect. Intact judgment and insight. - Labs CBC & Chem 7: 08/14/24 03:44 08/14/24 03:44 Labs: Abnormal Lab Results - Last 24 Hours (Table) 08/13/24 08/13/24 08/13/24 Range/Units 12:12 15:20 20:00 WBC (3.8-10.6) k/uL Hgb (11.4-16.0) gm/dL MCHC (31.0-37.0) g/dL Neutrophils # (1.3-7.7) k/uL Lymphocytes # (1.0-4.8) k/uL Potassium (3.5-5.1) mmol/L Chloride (98-107) mmol/L Carbon Dioxide (22-30) mmol/L Glucose (74-99) mg/dL POC Glucose (mg/dL) 180 H 276 H 262 H (70-110) mg/dL Hemoglobin A1c (<=6.0) % 08/14/24 08/14/24 08/14/24 Range/Units 03:44 03:44 03:44 WBC 14.2 H (3.8-10.6) k/uL Hgb 10.9 L (11.4-16.0) gm/dL MCHC 30.5 L (31.0-37.0) g/dL Neutrophils # 13.5 H (1.3-7.7) k/uL Lymphocytes # 0.3 L (1.0-4.8) k/uL Potassium 5.2 H (3.5-5.1) mmol/L Chloride 119 H (98-107) mmol/L Carbon Dioxide 16 L (22-30) mmol/L Glucose 163 H (74-99) mg/dL POC Glucose (mg/dL) (70-110) mg/dL Hemoglobin A1c 7.6 H (<=6.0) % 08/14/24 Range/Units 06:30 WBC (3.8-10.6) k/uL Hgb (11.4-16.0) gm/dL MCHC (31.0-37.0) g/dL Neutrophils # (1.3-7.7) k/uL Lymphocytes # (1.0-4.8) k/uL Potassium (3.5-5.1) mmol/L Chloride (98-107) mmol/L Carbon Dioxide (22-30) mmol/L Glucose (74-99) mg/dL POC Glucose (mg/dL) 187 H (70-110) mg/dL Hemoglobin A1c (<=6.0) % Microbiology - Last 24 Hours (Table) 08/12/24 12:36 Blood Culture - Preliminary Blood Assessment and Plan Assessment: Impression: Acute hypoxic respiratory failure secondary to extensive left lower lobe pneumon ia, community-acquired Acute on chronic adrenal insufficiency with hypotension Hypotension could be secondary to adrenal insufficiency responded to stress doses of Solu-Cortef. History of coronary artery disease History of Takotsubo syndrome History of obstructive sleep apnea syndrome Benign essential hypertension Type 2 diabetes History of gout Dyslipidemia Degenerative joint disease Recommendation: Continue antibiotics including Rocephin and Zithromax Continue Solu-Cortef and cut the dose down to 50 mg IV push acute 12 hours Continue IV fluids Continue bronchodilators Patient is now off norepinephrine Transfer patient to medical surgical floor Will continue to follow Time with Patient: Less than 30
[2024-08-14 11:19] LABS: Glucose,Whole Blood 259 mg/dL (70-110)
--- NOTE | 2024-08-14 15:15 | P.PN ---
Subjective Progress Note Date: 08/14/24 Interval History: This is a 78-year-old female with past medical history significant for adrenal insufficiency, obstructive sleep apnea-uses CPAP at home, asthma, diabetes mellitus, gastroesophageal reflux disease, glaucoma, nonischemic cardiomyopathy, Takotsubo syndrome, CAD,NSTEMI, hypertension, dyslipidemia, degenerative joint disease and multiple other medical issues presented to the ER with complaints of nausea ,vomiting , diarrhea, abdominal pain , coffee-ground emesis and some maroon stools ,low blood sugars, accompanied by shortness of breath, yesterday. Patient consumed sugar to compensate with glucose 252 on admission. Recent EGD/colonoscopy 01/13/2024 reported mild antral gastritis, small hiatal hernia, scattered sigmoid diverticula with no evidence of colorectal neoplasia. denies any chest pain, palpitations. On admission hypotensive, received IV fluids, hydrocortisone-stress dose and eventually placed on Levophed. chest x-ray reported moderate-sized area of airspace consolidation of left lower lobe felt to reflect a pneumonia. CT of abdomen pelvis reported consolidative infiltrate in the left lung base likely acute pneumonia, no significant abnormality within the abdomen or pelvis. afebrile, WBC 18.6. Lactic acid on admission 6 , resolved with IV fluid hydration ,1.8 .hemoglobin 10.2, platelets 240. Blood sugars uncontrolled, negative acetone, currently low 100s.Renal function improving bicarb 21, BUN now 28, creatinine 0.76. UA negative. Viral studies negative. Ceftriaxone and azithromycin initiated. 08/14/24--- patient is afebrile, heart rate 78, respiratory rate 22, blood pressure is 148/79, saturating 97% on room air. WBCs 14.2, hemoglobin stable at 10.9, platelet 209. Sodium 144, potassium 5.2, chloride 119, CO2 16 BUN 16 creatinine 0.58. Currently off Levophed. Pulmonary following. Currently on Solu-Cortef 100 mg every 8 hours. Blood pressure is stable. Patient feeling better today. WBCs 14.2, hemoglobin 10.9. BMP is unremarkable. On Rocephin and azithromycin for pneumonia. No sign or symptom of active bleed, no melena or hematochezia, had bowel movement overnight brown color. No hematemesis. Assessment and plan: Septic shock secondary to acute left lower lobe pneumonia, community-acquired Hypotension and tachycardia secondary to the above, adrenal insufficiency Acute hypoxic respiratory failure secondary to all the above Diabetes mellitus II, hemoglobin A1c pending History of adrenal insufficient History of nonischemic cardiomyopathy EF 20-25% taku subo syndrome Mild to moderate pulmonary hypertension Chronic paroxysmal atrial fibrillation Hypertension Hyperlipidemia Gastroesophageal reflux disease Obstructive Sleep apnea, with CPAP, at home Anxiety Mild protein calorie malnutrition Hypokalemia Hypomagnesemia Plan: Continue current regimen, monitor vitals, monitor levels Antibiotics: Rocephin and azithromycin Currently Levophed, scheduling coordinator consulted and following Stress dose hydrocortisone Hold Farxiga and Lasix due to low blood pressure Continue Eliquis. Electrolyte replacement protocol DVT prophylaxis: AC PHYSICAL EXAMINATION: GENERAL: The patient is A&O x3, NAD HEENT: EOMI, Sclerae anicteric, Moist Mucous membranes Neck: Supple, Non tender, No JVD PULMONARY: Equal breath souds B/L, No wheezing, No crackles. CARDIOVASCULAR: S1, S2 present. No murmurs, rubs, or gallops. ABDOMEN: Soft, nontender, nondistended, normoactive bowel sounds. No guarding or rebound tenderness. MUSCULOSKELETAL: No edema, No cyanosis. No clubbing. Normal ROM. Intact peripheral pulses. EXTREMITIES: No cyanosis, clubbing, or pedal edema. NEUROLOGICAL: CN 2-12 grossly intact. No FND Skin: No Rash REVIEW OF SYSTEMS: CONSTITUTIONAL: No fever or chills. CARDIOVASCULAR: No chest pain, palpitations or syncope. PULMONARY: No shortness of breath, no cough, sore throat. GASTROINTESTINAL: No nausea, vomiting, diarrhea, abdominal pain. : No Dysuria, urgency, frequency. Extremities: No edema. NEUROLOGICAL: No headaches, no weakness, or numbness Dictation was produced using [employer] dictation software. please excuse any grammatical, word or spelling errors. Objective - Vital Signs Vital signs: Vital Signs Temp 97.6 F 08/14/24 08:00 Pulse 84 08/14/24 09:11 Resp 22 08/14/24 08:00 BP 148/79 08/14/24 08:00 Pulse Ox 97 08/14/24 08:00 FiO2 Intake & Output 08/13/24 08/14/24 08/14/24 18:59 06:59 18:59 Intake Total 767.968 825 75 Output Total 140 Balance 767.968 685 75 Weight 42.184 kg 48 kg Intake: IV 725 825 75 Azithromycin 500 mg In 250 Sodium Chloride 0.9% 250 ml @ 250 mls/hr IVPB Q24H [facility] Rx#:[id number] Magnesium Sulfate-D5w Pmx 100 1 gm In Dextrose/Water 1 100ml.bag @ 100 mls/hr IVPB ONCE ONE Rx#: [id number] Sodium Chloride 0.9% 1, 375 825 75 000 ml @ 75 mls/hr IV . [id number] [facility] Rx#:[id number] Intake, IV Titration 42.968 Amount Norepinephrine 4 mg In 42.968 Sodium Chloride 0.9% 250 ml @ 0.03 MCG/KG/MIN 4. 822 mls/hr IV .Q24H [facility] Rx#:[id number] Output: Urine 140 Other: Voiding Method External Catheter External Catheter # Voids 1 1 # Bowel Movements 1 - Labs CBC & Chem 7: 08/14/24 03:44 08/14/24 03:44 Labs: Abnormal Lab Results - Last 24 Hours (Table) 08/13/24 08/13/24 08/13/24 Range/Units 05:54 12:12 15:20 WBC (3.8-10.6) k/uL Hgb (11.4-16.0) gm/dL MCHC (31.0-37.0) g/dL Neutrophils # (1.3-7.7) k/uL Lymphocytes # (1.0-4.8) k/uL Potassium (3.5-5.1) mmol/L Chloride (98-107) mmol/L Carbon Dioxide (22-30) mmol/L Glucose (74-99) mg/dL POC Glucose (mg/dL) 180 H 276 H (70-110) mg/dL Procalcitonin 8.54 H (0.02-0.50) ng/mL 08/13/24 08/14/24 08/14/24 Range/Units 20:00 03:44 03:44 WBC 14.2 H (3.8-10.6) k/uL Hgb 10.9 L (11.4-16.0) gm/dL MCHC 30.5 L (31.0-37.0) g/dL Neutrophils # 13.5 H (1.3-7.7) k/uL Lymphocytes # 0.3 L (1.0-4.8) k/uL Potassium 5.2 H (3.5-5.1) mmol/L Chloride 119 H (98-107) mmol/L Carbon Dioxide 16 L (22-30) mmol/L Glucose 163 H (74-99) mg/dL POC Glucose (mg/dL) 262 H (70-110) mg/dL Procalcitonin (0.02-0.50) ng/mL 08/14/24 Range/Units 06:30 WBC (3.8-10.6) k/uL Hgb (11.4-16.0) gm/dL MCHC (31.0-37.0) g/dL Neutrophils # (1.3-7.7) k/uL Lymphocytes # (1.0-4.8) k/uL Potassium (3.5-5.1) mmol/L Chloride (98-107) mmol/L Carbon Dioxide (22-30) mmol/L Glucose (74-99) mg/dL POC Glucose (mg/dL) 187 H (70-110) mg/dL Procalcitonin (0.02-0.50) ng/mL Microbiology - Last 24 Hours (Table) 08/12/24 12:36 Blood Culture - Preliminary Blood
[2024-08-14 18:08] LABS: Glucose,Whole Blood 207 mg/dL (70-110)
[2024-08-14 19:40] LABS: Glucose,Whole Blood 265 mg/dL (70-110)
[2024-08-14] MEDS: HYDROCORTISONE SUCCINATE 100 MG/2 ML VIAL IV SCH (21:00)
[2024-08-15 03:41] LABS: Glucose,Whole Blood 245 mg/dL (70-110)
[2024-08-15] MEDS: LOSARTAN 50 MG TAB PO SCH (04:37)
--- NOTE | 2024-08-15 05:34 | XR ---
EXAM: XR Chest, 1 View CLINICAL HISTORY: Increased SOB TECHNIQUE: Frontal view of the chest. COMPARISON: 2 days ago FINDINGS: Lungs: Moderate amount of airspace opacities in both lungs, similar on the left and the increase on the right. Pleural space: Small to moderate bilateral pleural effusions, also increased. Mediastinum: Calcified aorta. Normal mediastinal contour. Bones/joints: No acute findings. IMPRESSION: 1. Moderate amount of airspace opacities in both lungs, similar on the left and the increase on the right. 2. Small to moderate bilateral pleural effusions, also increased.
[2024-08-15] MEDS ORDERED: LORazepam 2 MG/ML INJ IV PRN (05:35)
[2024-08-15] MEDS: METOPROLOL TARTRATE 25 MG TAB PO STA (05:54)
[2024-08-15] MEDS: HYDROCORTISONE SUCCINATE 100 MG/2 ML VIAL IV STA (05:55)
[2024-08-15] MEDS: LORazepam 2 MG/ML INJ IV STA (06:02)
[2024-08-15 06:11] LABS: Glucose,Whole Blood 273 mg/dL (70-110)
[2024-08-15 06:38] LABS: African American GFR (CKD) >90 (>60 ml/min/1.73 sqM); Anion Gap 14 mmol/L; Blood Urea Nitrogen 26 mg/dL (7-17); Calcium 8.8 mg/dL (8.4-10.2); Chloride 121 mmol/L (98-107); Glucose 308 mg/dL (74-99); Non-African American GFR(CKD) 83 (>60 ml/min/1.73 sqM); Sodium 144 mmol/L (137-145)
[2024-08-15 06:41] LABS: Carbon Dioxide 9 mmol/L (22-30); Potassium 4.2 mmol/L (3.5-5.1)
[2024-08-15] MEDS: SODIUM BICARB 8.4% 50 ML SYR (1 MEQ/ML) IV STA ×3 (06:50→17:24)
[2024-08-15] MEDS: NOREPINEPHRINE 4 MG in SODIUM CHLORIDE 0.9% 250 ML IV SCH (07:18)
[2024-08-15 07:26] LABS: Basophils % (A) 0 %; Eosinophils % (A) 0 %; HCT 32.5 % (34.0-46.0); Hypochromasia Marked; Lymphocytes # (A) 0.4 k/uL (1.0-4.8); Lymphocytes % (A) 2 %; MCH 27.8 pg (25.0-35.0); MCHC 30.9 g/dL (31.0-37.0); MCV 90.1 fL (80.0-100.0); Mean Platelet Volume 7.7; Monocytes # (A) 0.7 k/uL (0-1.0); Monocytes % (A) 4 %; Neutrophils # (A) 15.5 k/uL (1.3-7.7); Neutrophils % (A) 93 %; Platelet Count 313 k/uL (150-450); RBC 3.61 m/uL (3.80-5.40); RDW 15.5 % (11.5-15.5); WBC 16.7 k/uL (3.8-10.6)
--- NOTE | 2024-08-15 08:21 | XR ---
EXAMINATION TYPE: XR chest 1V portable DATE OF EXAM: 08/15/2024 Comparison: 08/15/2024 Clinical History: 78-year-old female Tube placement Findings: ET and NG tubes satisfactory. Heart is mildly enlarged. Hyperinflation. Diffuse interstitial densitie s. Consolidation throughout the left mid and lower lung persists. Slight improving aeration right low er lung. Impression: COPD with ongoing multifocal airspace disease, greatest in the left mid and lower lung. Aeration at t he right lower lung slightly improving. [facility], , 08/15/2024 8:18 AM
[2024-08-15] MEDS: CISATRACURIUM 2 MG/ML 5 ML VIAL IV ONE (08:35)
[2024-08-15] MEDS: SODIUM CHLORIDE 0.9% 1,000 ML IV ONE (08:45)
[2024-08-15 09:14] LABS: ABG Base Excess -8.1 mmol/L; ABG HCO3 18 mmol/L (21-25); ABG Oxygen Saturation 98.2 % (94-97); ABG PCO2 39 mmHg (35-45); ABG PH 7.28 (7.35-7.45); ABG PO2 129 mmHg (83-108); ABG TCO2 19 mmol/L (19-24)
[2024-08-15 09:18] LABS: Appearance,Urine Clear (Clear); Bilirubin,Urine Negative (Negative); Blood,Urine Small (Negative); Color,Urine Colorless; Glucose,Urine (UA) 4+ (Negative); Ketones,Urine 1+ (Negative); Leukocyte Esterase,Urine Negative (Negative); Mucus,Urine Rare /hpf; Nitrite,Urine Negative (Negative); PH, Urine 5.5 (5.0-8.0); Protein,Urine 1+ (Negative); RBC,Urine <1 /hpf (0-5); Specific Gravity,Urine 1.031 (1.001-1.035); Urobilinogen,Urine <2.0 mg/dL (<2.0); WBC,Urine <1 /hpf (0-5)
--- NOTE | 2024-08-15 09:29 | XR ---
EXAMINATION TYPE: XR chest 1V confirm line [facility] [place] DATE OF EXAM: 08/15/2024 COMPARISON: Earlier today HISTORY: 78-year-old female assess line placement TECHNIQUE: Single frontal view of the chest is obtained. FINDINGS: ET and NG tubes are satisfactory. Heart mildly enlarged. Hyperinflation. Ongoing mid and l ower lung pleural parenchymal opacity. There is no silhouetting of the right hemidiaphragm. Right IJ CVC tip lower SVC. IMPRESSION: 1. Similar COPD with cardiomegaly and extensive mid and lower lung opacities, left greater than right . There may be increasing pleural effusion on the right. 2. Right IJ CVC tip lower SVC. [facility], , 08/15/2024 9:27 AM
[2024-08-15] MEDS: PIPERACILLIN-TAZOBACTAM 3.375 GM in SODIUM CHLORIDE 0.9% 100 ML IVPB SCH (10:36)
[2024-08-15] MEDS: CHLORHEXIDINE GLUCONATE 15 ML CUP MUCOUS MEM SCH (10:36)
--- NOTE | 2024-08-15 11:44 | P.PN ---
Subjective Progress Note Date: 08/15/24 Principal diagnosis: Acute hypoxic respiratory failure secondary to extensive left lower lobe pneumonia, community-acquired Is a 78-year-old female with history of multiple medical problems including asthma, hypertension, diabetes, dyslipidemia, obstructive sleep apnea syndrome, degenerative joint disease, patient presented to the ER yesterday with chief complaint of nausea vomiting and diarrhea. Patient was also complaining of some vague abdominal pain radiating to the back, shortness of breath, coffee-ground emesis, and melena. Patient apparently had chronic abdominal pain, and she had extensive abdominal workup by gastroenterology in the past. Apparently in the ER workup was done and she was found to have an extensive left lower lobe pneumonia patient had some shortness of breath, minimal cough. She was noted to have leukocytosis with WBC of 18.6 hemoglobin 10.2. She was also noted to have low potassium, and significantly elevated procalcitonin of 8.54. Patient was placed on antibiotics in the form of Rocephin and Zithromax. She was noted to be hypotensive and the patient was given a stress dose of hydrocortisone, she is normally on Cortef. Patient was admitted and this consult was initiated. Patient did not improve with fluid boluses and with hydrocortisone hence patient was placed on norepinephrine and she is presently on 0.03 mcg/kg/min, and she will be admitted to the ICU since the patient is requiring pressors. After evaluating the patient and knowing that the patient has history of renal insufficiency, I recommended Solu-Cortef 100 mg IV push every 8 hours for the next 24 hours. And will address the dose accordingly in the next 24 hours Patient was evaluated today on 08/14/2024, remains in the ICU, I saw this patient yesterday on consultation, she was hypotensive in the ER requiring norepinephrine briefly. Patient was admitted with left lower lobe pneumonia and what seems to be an relative adrenal insufficiency responded well to stress doses of hydrocortisone. Patient is now off pressors, she did receive fluid boluses, and remains on Solu-Cortef 100 mg IV push every 8 hours. Her blood pressure is much better today, patient is feeling better, breathing easier, she is empirically on antibiotics for her left lower lobe pneumonia. WBC count is 14.2 hemoglobin 10.9 basic metabolic profile is normal bicarb is 16 BUN is normal creatinine is now Reevaluated today on 08/15/2024, patient developed worsening shortness of breath this morning worsening metabolic acidosis this morning patient was also hypertensive, tachycardic, tachypneic, required intubation mechanical ventilation earlier this morning. Her ABG postintubation showed a pO2 of 129 pCO2 39 pH of 7.27. Patient is on assist-control rate of 16 tidal volume 300 FiO2 45% and PEEP of 5 hence her FiO2 was cut down to 40%, patient received 1 amp of bicarb. Patient had elevated procalcitonin level of 8.54, her antibiotics were changed from Rocephin and Zithromax to Zosyn. Patient may have sustained some aspiration pneumonia as her chest x-ray is showing worsening pneumonia in the left lower lobe and right lower lobe. She is on norepinephrine at 0.065 mcg/kg/min propofol at 35 mcg/kg/min she is also on IV fluid at 75 cc/h. Solu-Cortef was increased again to 50 mg IV push every 8 hours.WBC count is 16.7 hemoglobin is 10 her bicarb earlier on the electrolytes was only 9. And she had anion gap of 14. CODE STATUS was changed by family today to DNR CODE STATUS and I believe that is appropriate considering her multiple comorbidities. Upon my evaluation this morning in the ICU, patient was hypotensive requiring norepinephrine and she received fluid boluses patient had an arterial line and triple-lumen catheter placed immediately as she had no good peripheral access and respiratory could not even obtain ABG this morning. Objective - Vital Signs Vital signs: Vital Signs Temp 97.5 F L 08/15/24 08:00 Pulse 86 08/15/24 11:00 Resp 31 H 08/15/24 11:00 BP 106/74 08/15/24 11:00 Pulse Ox 99 08/15/24 11:00 FiO2 40 08/15/24 11:12 Intake & Output 08/14/24 08/15/24 08/15/24 18:59 06:59 18:59 Intake Total 523 797 1688.714 Output Total 654 151 305 Balance -329 209 698.714 Intake: IV 325 240 Azithromycin 500 mg In 250 Sodium Chloride 0.9% 250 ml @ 250 mls/hr IVPB Q24H [facility] Rx#:[id number] Sodium Chloride 0.9% 1, 75 000 ml @ 75 mls/hr IV . [id number] [facility] Rx#:[id number] Sodium Chloride 0.9% 1, 240 000 ml @ 75 mls/hr IV . [id number] [facility] Rx#:[id number] Intake, IV Titration 1003.714 Amount Norepinephrine 4 mg In 1.554 Sodium Chloride 0.9% 250 ml @ 0.03 MCG/KG/MIN 5. 486 mls/hr IV .Q24H [facility] Rx#:[id number] Sodium Chloride 0.9% 1, 1000 000 ml @ 999 mls/hr IV . Q1H1M [facility] Rx#:[id number] propofoL 1,000 mg In 2.16 Empty Bag 1 bag @ 15 MCG/ KG/MIN 4.32 mls/hr IV . Q23H9M [facility] Rx#:[id number] Tube Feeding 120 Output: Urine 650 150 305 Stool 4 1 Other: Voiding Method External Catheter External Catheter Indwelling Catheter # Voids 2 1 ABP, PAP, CO, CI - Last Documented Arterial Blood Pressure 103/56 - Exam GENERAL EXAM: Revealed 78-year-old female, frail looking, chronically ill, in no distress, on mechanical ventilation. Sedated, on propofol. HEAD: Normocephalic/atraumatic. Endotracheal tube and orogastric tube are intact. EYES: Normal reaction of pupils, equal size. Conjunctiva pink, sclera white. NOSE: Clear with pink turbinates. THROAT: No erythema or exudates. NECK: No masses, no JVD, no thyroid enlargement, no adenopathy. CHEST: No chest wall deformity. Symmetrical expansion. LUNGS: Isabelle and rhonchi noted at the bases. CVS: Regular rate and rhythm, normal S1 and S2, no gallops, no murmurs, no rubs ABDOMEN: Soft, nontender. No hepatosplenomegaly, normal bowel sounds, no guarding or rigidity. EXTREMITIES: No clubbing, no edema, no cyanosis, 2+ pulses and upper and lower extremities. MUSCULOSKELETAL: Muscle strength and tone normal. SKIN: No rashes CENTRAL NERVOUS SYSTEM: Not assessed this morning because she is on propofol. PSYCHIATRIC: Could not assess - Labs CBC & Chem 7: 08/15/24 07:14 08/15/24 05:43 Labs: Abnormal Lab Results - Last 24 Hours (Table) 08/14/24 08/14/24 08/15/24 Range/Units 18:06 19:39 03:38 WBC (3.8-10.6) k/uL RBC (3.80-5.40) m/uL Hgb (11.4-16.0) gm/dL Hct (34.0-46.0) % MCHC (31.0-37.0) g/dL Neutrophils # (1.3-7.7) k/uL Lymphocytes # (1.0-4.8) k/uL Chloride (98-107) mmol/L Carbon Dioxide (22-30) mmol/L BUN (7-17) mg/dL Glucose (74-99) mg/dL POC Glucose (mg/dL) 207 H 265 H 245 H (70-110) mg/dL Urine Protein (Negative) Urine Glucose (UA) (Negative) Urine Ketones (Negative) Urine Blood (Negative) Urine Mucus (None) /hpf 08/15/24 08/15/24 08/15/24 Range/Units 05:43 06:08 07:14 WBC 16.7 H (3.8-10.6) k/uL RBC 3.61 L (3.80-5.40) m/uL Hgb 10.0 L (11.4-16.0) gm/dL Hct 32.5 L (34.0-46.0) % MCHC 30.9 L (31.0-37.0) g/dL Neutrophils # 15.5 H (1.3-7.7) k/uL Lymphocytes # 0.4 L (1.0-4.8) k/uL Chloride 121 H (98-107) mmol/L Carbon Dioxide 9 L* (22-30) mmol/L BUN 26 H (7-17) mg/dL Glucose 308 H (74-99) mg/dL POC Glucose (mg/dL) 273 H (70-110) mg/dL Urine Protein (Negative) Urine Glucose (UA) (Negative) Urine Ketones (Negative) Urine Blood (Negative) Urine Mucus (None) /hpf 08/15/24 Range/Units 08:40 WBC (3.8-10.6) k/uL RBC (3.80-5.40) m/uL Hgb (11.4-16.0) gm/dL Hct (34.0-46.0) % MCHC (31.0-37.0) g/dL Neutrophils # (1.3-7.7) k/uL Lymphocytes # (1.0-4.8) k/uL Chloride (98-107) mmol/L Carbon Dioxide (22-30) mmol/L BUN (7-17) mg/dL Glucose (74-99) mg/dL POC Glucose (mg/dL) (70-110) mg/dL Urine Protein 1+ H (Negative) Urine Glucose (UA) 4+ H (Negative) Urine Ketones 1+ H (Negative) Urine Blood Small H (Negative) Urine Mucus Rare H (None) /hpf Microbiology - Last 24 Hours (Table) 08/12/24 12:36 Blood Culture - Preliminary Blood Assessment and Plan Assessment: Impression: Acute hypoxic respiratory failure secondary to pneumonia, strongly suspect aspiration pneumonia with bilateral basilar infiltrates. Acute on chronic adrenal insufficiency with hypotension, acute sepsis and possible septic shock is possible Hypotension could be secondary to adrenal insufficiency responded to stress doses of Solu-Cortef. History of coronary artery disease History of Takotsubo syndrome History of obstructive sleep apnea syndrome Benign essential hypertension Type 2 diabetes History of gout Dyslipidemia Degenerative joint disease Recommendation: Continue ventilatory support, vent settings were addressed Change antibiotic to Zosyn empirically and check cultures including sputum cultures and blood cultures Continue Solu-Cortef, dose is now 50 mg IV push every 8 hours patient received high doses initially for low blood pressure Continue IV fluids Continue bronchodilators Continue hemodynamic support, titrate norepinephrine accordingly Updated family members on her situation today CODE STATUS was changed to DNR Critical care time is over 30 minutes not including the time spent on procedures Will continue to follow Time with Patient: Greater than 30
[2024-08-15 12:11] LABS: Allen Test Performed? NO
[2024-08-15 12:34] LABS: Glucose,Whole Blood 247 mg/dL (70-110)
[2024-08-15] MEDS: INSULIN ASPART (NovoLOG) 100 UNIT/ML VIAL SQ SCH (12:40)
--- NOTE | 2024-08-15 13:12 | P.PN ---
Subjective Progress Note Date: 08/15/24 Interval History: This is a 78-year-old female with past medical history significant for adrenal insufficiency, obstructive sleep apnea-uses CPAP at home, asthma, diabetes mellitus, gastroesophageal reflux disease, glaucoma, nonischemic cardiomyopathy, Takotsubo syndrome, CAD,NSTEMI, hypertension, dyslipidemia, degenerative joint disease and multiple other medical issues presented to the ER with complaints of nausea ,vomiting , diarrhea, abdominal pain , coffee-ground emesis and some maroon stools ,low blood sugars, accompanied by shortness of breath, yesterday. Patient consumed sugar to compensate with glucose 252 on admission. Recent EGD/colonoscopy 01/13/2024 reported mild antral gastritis, small hiatal hernia, scattered sigmoid diverticula with no evidence of colorectal neoplasia. denies any chest pain, palpitations. On admission hypotensive, received IV fluids, hydrocortisone-stress dose and eventually placed on Levophed. chest x-ray reported moderate-sized area of airspace consolidation of left lower lobe felt to reflect a pneumonia. CT of abdomen pelvis reported consolidative infiltrate in the left lung base likely acute pneumonia, no significant abnormality within the abdomen or pelvis. afebrile, WBC 18.6. Lactic acid on admission 6 , resolved with IV fluid hydration ,1.8 .hemoglobin 10.2, platelets 240. Blood sugars uncontrolled, negative acetone, currently low 100s.Renal function improving bicarb 21, BUN now 28, creatinine 0.76. UA negative. Viral studies negative. Ceftriaxone and azithromycin initiated. 08/14/24--- patient is afebrile, heart rate 78, respiratory rate 22, blood pressure is 148/79, saturating 97% on room air. WBCs 14.2, hemoglobin stable at 10.9, platelet 209. Sodium 144, potassium 5.2, chloride 119, CO2 16 BUN 16 creatinine 0.58. Currently off Levophed. Pulmonary following. Currently on Solu-Cortef 100 mg every 8 hours. Blood pressure is stable. Patient feeling better today. WBCs 14.2, hemoglobin 10.9. BMP is unremarkable. On Rocephin and azithromycin for pneumonia. No sign or symptom of active bleed, no melena or hematochezia, had bowel movement overnight brown color. No hematemesis. 08/15/2022--- patient was seen and examined today. Patient had worsening shortness of breath-, worsening metabolic acidosis, was hypertensive tachycardic and tachypneic overnight, required intubation mechanical ventilation. Blood gases showed pO2 129, pCO2 39, pH of 7.27. Patient given 1 amp of bicarb, had elevated procalcitonin level of 8.54. Antibiotics changed to Zosyn. Chest x- ray showed worsening pneumonia in the left lower lobe and right lower lobe, concern for aspiration. Patient also on Levophed and propofol, IV fluids. Solu-Cortef changed to 50 mg every 8 hour. WBC 16.7, hemoglobin 10. Bicar bonate earlier in the lab was 9. Assessment and plan: Acute hypoxic respiratory failure, septic shock secondary to acute left lower lobe pneumonia, community-acquired, concern for aspiration, Requiring intubation mechanical ventilation 08/15/2024 Metabolic acidosis: Hypotension and tachycardia secondary to the above, adrenal insufficiency Acute hypoxic respiratory failure secondary to all the above Diabetes mellitus II, hemoglobin A1c pending History of adrenal insufficient History of nonischemic cardiomyopathy EF 20-25% taku subo syndrome Mild to moderate pulmonary hypertension Chronic paroxysmal atrial fibrillation Hypertension Hyperlipidemia Gastroesophageal reflux disease Obstructive Sleep apnea, with CPAP, at home Anxiety Mild protein calorie malnutrition Hypokalemia Hypomagnesemia Plan: Continue current regimen, monitor vitals, monitor levels, currently intubated and on mechanical ventilation, sedated 08/15/2024. Antibiotics: Rocephin and azithromycin changed to Zosyn. Currently Levophed, yield loss inspector consulted and following Stress dose hydrocortisone Hold Farxiga and Lasix due to low blood pressure Continue Eliquis. Electrolyte replacement protocol IV fluids. DVT prophylaxis: AC PHYSICAL EXAMINATION: GENERAL: The patient is A&O x0, intubated and sedated on mechanical ventilation. HEENT: EOMI, Sclerae anicteric, Moist Mucous membranes Neck: Supple, Non tender, No JVD PULMONARY: Equal breath souds B/L, No wheezing, bilateral crackles. CARDIOVASCULAR: S1, S2 present. No murmurs, rubs, or gallops. ABDOMEN: Soft, nontender, nondistended, normoactive bowel sounds. No guarding or rebound tenderness. MUSCULOSKELETAL: No edema, No cyanosis. No clubbing. Normal ROM. Intact peripheral pulses. EXTREMITIES: No cyanosis, clubbing, or pedal edema. NEUROLOGICAL: CN 2-12 grossly intact. No FND Skin: No Rash REVIEW OF SYSTEMS: Limited review of system, sedated and intubated. Dictation was produced using [employer] dictation software. please excuse any grammatical, word or spelling errors. Objective - Vital Signs Vital signs: Vital Signs Temp 96.3 F L 08/15/24 12:00 Pulse 84 08/15/24 12:30 Resp 27 H 08/15/24 12:00 BP 93/63 08/15/24 12:00 Pulse Ox 100 08/15/24 12:00 FiO2 40 08/15/24 12:00 Intake & Output 08/14/24 08/15/24 08/15/24 18:59 06:59 18:59 Intake Total 827 112 7298.594 Output Total 654 151 305 Balance -329 209 728.594 Intake: IV 325 240 Azithromycin 500 mg In 250 Sodium Chloride 0.9% 250 ml @ 250 mls/hr IVPB Q24H [facility] Rx#:[id number] Sodium Chloride 0.9% 1, 75 000 ml @ 75 mls/hr IV . [id number] [facility] Rx#:[id number] Sodium Chloride 0.9% 1, 240 000 ml @ 75 mls/hr IV . [id number] [facility] Rx#:[id number] Intake, IV Titration 1033.594 Amount Norepinephrine 4 mg In 1.554 Sodium Chloride 0.9% 250 ml @ 0.03 MCG/KG/MIN 5. 486 mls/hr IV .Q24H [facility] Rx#:[id number] Sodium Chloride 0.9% 1, 1000 000 ml @ 999 mls/hr IV . Q1H1M ONE Rx#:[id number] propofoL 1,000 mg In 32.04 Empty Bag 1 bag @ 15 MCG/ KG/MIN 4.32 mls/hr IV . Q23H9M [facility] Rx#:[id number] Tube Feeding 120 Output: Urine 650 150 305 Stool 4 1 Other: Voiding Method External Catheter External Catheter Indwelling Catheter # Voids 2 1 ABP, PAP, CO, CI - Last Documented Arterial Blood Pressure 114/65 - Labs CBC & Chem 7: 08/15/24 07:14 08/15/24 05:43 Labs: Abnormal Lab Results - Last 24 Hours (Table) 08/14/24 08/14/24 08/15/24 Range/Units 18:06 19:39 03:38 WBC (3.8-10.6) k/uL RBC (3.80-5.40) m/uL Hgb (11.4-16.0) gm/dL Hct (34.0-46.0) % MCHC (31.0-37.0) g/dL Neutrophils # (1.3-7.7) k/uL Lymphocytes # (1.0-4.8) k/uL ABG pH (7.35-7.45) ABG pO2 (83-108) mmHg ABG HCO3 (21-25) mmol/L ABG O2 Saturation (94-97) % Chloride (98-107) mmol/L Carbon Dioxide (22-30) mmol/L BUN (7-17) mg/dL Glucose (74-99) mg/dL POC Glucose (mg/dL) 207 H 265 H 245 H (70-110) mg/dL Urine Protein (Negative) Urine Glucose (UA) (Negative) Urine Ketones (Negative) Urine Blood (Negative) Urine Mucus (None) /hpf 08/15/24 08/15/24 08/15/24 Range/Units 05:43 06:08 07:14 WBC 16.7 H (3.8-10.6) k/uL RBC 3.61 L (3.80-5.40) m/uL Hgb 10.0 L (11.4-16.0) gm/dL Hct 32.5 L (34.0-46.0) % MCHC 30.9 L (31.0-37.0) g/dL Neutrophils # 15.5 H (1.3-7.7) k/uL Lymphocytes # 0.4 L (1.0-4.8) k/uL ABG pH (7.35-7.45) ABG pO2 (83-108) mmHg ABG HCO3 (21-25) mmol/L ABG O2 Saturation (94-97) % Chloride 121 H (98-107) mmol/L Carbon Dioxide 9 L* (22-30) mmol/L BUN 26 H (7-17) mg/dL Glucose 308 H (74-99) mg/dL POC Glucose (mg/dL) 273 H (70-110) mg/dL Urine Protein (Negative) Urine Glucose (UA) (Negative) Urine Ketones (Negative) Urine Blood (Negative) Urine Mucus (None) /hpf 08/15/24 08/15/24 08/15/24 Range/Units 08:40 09:09 12:32 WBC (3.8-10.6) k/uL RBC (3.80-5.40) m/uL Hgb (11.4-16.0) gm/dL Hct (34.0-46.0) % MCHC (31.0-37.0) g/dL Neutrophils # (1.3-7.7) k/uL Lymphocytes # (1.0-4.8) k/uL ABG pH 7.28 L (7.35-7.45) ABG pO2 129 H (83-108) mmHg ABG HCO3 18 L (21-25) mmol/L ABG O2 Saturation 98.2 H (94-97) % Chloride (98-107) mmol/L Carbon Dioxide (22-30) mmol/L BUN (7-17) mg/dL Glucose (74-99) mg/dL POC Glucose (mg/dL) 247 H (70-110) mg/dL Urine Protein 1+ H (Negative) Urine Glucose (UA) 4+ H (Negative) Urine Ketones 1+ H (Negative) Urine Blood Small H (Negative) Urine Mucus Rare H (None) /hpf Microbiology - Last 24 Hours (Table) 08/12/24 12:36 Blood Culture - Preliminary Blood
[2024-08-15 15:51] LABS: Glucose,Whole Blood 233 mg/dL (70-110)
[2024-08-15 16:50] LABS: ABG Base Excess -7.1 mmol/L; ABG HCO3 17 mmol/L (21-25); ABG Oxygen Saturation 98.1 % (94-97); ABG PCO2 28 mmHg (35-45); ABG PH 7.39 (7.35-7.45); ABG PO2 115 mmHg (83-108); ABG TCO2 18 mmol/L (19-24)
[2024-08-15 16:53] LABS: Allen Test Performed? no
[2024-08-15] MEDS: HYDROCORTISONE SUCCINATE 100 MG/2 ML VIAL IV SCH (17:23)
[2024-08-15] MEDS: SODIUM CHLORIDE 0.9% 80 ML with fentaNYL (PF) 1,000 MCG IV SCH (18:01)
--- NOTE | 2024-08-15 18:46 | OP ---
OPERATIVE REPORT DATE OF SERVICE : PROCEDURE: Placement of a right IJ triple-lumen catheter. PREOPERATIVE DIAGNOSIS: Acute hypoxic respiratory failure, pneumonia, hypotension. POSTOPERATIVE DIAGNOSIS: Acute hypoxic respiratory failure, pneumonia, hypotension.. ANESTHESIA USED: 2 mL of 1% lidocaine. PROCEDURE IN DETAIL: The patient was placed in a Trendelenburg position, the area of the right cervical region was prepared in a sterile fashion and drapes were applied. The area behind the sternocleidomastoid was locally anesthetized. Then using the posterior approach, the right IJ vein was easily cannulated, a guidewire was placed. Area around the guidewire, dilated, triple-lumen catheter inserted over the guidewire, and the guidewire was removed. Good blood flow noted in the 3 different ports of the triple- lumen catheter, line was secured with 3.0 silk sutures. A chest x-ray showed adequate placement and no complications. MMODL / ANGELN: [id number] /
--- NOTE | 2024-08-15 18:55 | OP ---
OPERATIVE REPORT DATE OF SERVICE : OPERATIVE REPORT: Placement of a right brachial arterial line. PREOPERATIVE DIAGNOSES: 1. Acute respiratory failure. 2. Hypotension. 3. Pneumonia. POSTOPERATIVE DIAGNOSES: 1. Acute respiratory failure. 2. Hypotension. 3. Pneumonia. ANESTHESIA USED: None deployed. PROCEDURE: The right brachial region was prepared in a sterile fashion. Drapes were applied. The right brachial artery was palpated, cannulated easily. A guidewire was placed, a Cook catheter was inserted over the guidewire and the guidewire was removed. Good blood flow, good waveform noted, no complications, line was secured using 3.0 silk sutures. MMODL / IJN: [id number] /
[2024-08-15 21:01] LABS: Glucose,Whole Blood 240 mg/dL (70-110)
[2024-08-16 00:53] LABS: Glucose,Whole Blood 237 mg/dL (70-110)
[2024-08-16] MEDS: INSULIN DETEMIR (LEVEMIR) 100 UNIT/ML SYR SQ SCH (00:56)
[2024-08-16 04:10] LABS: Glucose,Whole Blood 222 mg/dL (70-110)
[2024-08-16 04:30] LABS: Basophils % (A) 0 %; Eosinophils % (A) 0 %; HCT 32.3 % (34.0-46.0); HGB 10.1 gm/dL (11.4-16.0); Hypochromasia Moderate; Lymphocytes # (A) 0.4 k/uL (1.0-4.8); Lymphocytes % (A) 4 %; MCH 27.5 pg (25.0-35.0); MCHC 31.2 g/dL (31.0-37.0); MCV 88.3 fL (80.0-100.0); Monocytes # (A) 0.4 k/uL (0-1.0); Monocytes % (A) 4 %; Neutrophils # (A) 8.9 k/uL (1.3-7.7); Neutrophils % (A) 91 %; Platelet Count 302 k/uL (150-450); RBC 3.66 m/uL (3.80-5.40); RDW 15.6 % (11.5-15.5); WBC 9.8 k/uL (3.8-10.6)
[2024-08-16 04:39] LABS: African American GFR (CKD) 85 (>60 ml/min/1.73 sqM); Albumin 2.3 g/dL (3.5-5.0); Alkaline Phosphatase 91 U/L (38-126); Anion Gap 5 mmol/L; Blood Urea Nitrogen 35 mg/dL (7-17); Calcium 7.3 mg/dL (8.4-10.2); Carbon Dioxide 23 mmol/L (22-30); Chloride 121 mmol/L (98-107); Glucose 203 mg/dL (74-99); Magnesium 2.4 mg/dL (1.6-2.3); Non-African American GFR(CKD) 74 (>60 ml/min/1.73 sqM); Sodium 149 mmol/L (137-145); Total Bilirubin 0.4 mg/dL (0.2-1.3); Total Protein 4.3 g/dL (6.3-8.2)
[2024-08-16 04:49] LABS: Potassium 2.7 mmol/L (3.5-5.1)
[2024-08-16 04:50] LABS: ALT 1429 U/L (4-34); AST 1007 U/L (14-36)
[2024-08-16] MEDS ORDERED: Potassium Replacement Protocol 1 EACH MISC MISCELLANE PRN (04:58)
[2024-08-16 05:23] LABS: ABG Base Excess -3.5 mmol/L; ABG HCO3 22 mmol/L (21-25); ABG Oxygen Saturation 98.3 % (94-97); ABG PCO2 43 mmHg (35-45); ABG PH 7.33 (7.35-7.45); ABG PO2 127 mmHg (83-108); ABG TCO2 24 mmol/L (19-24); Allen Test Performed? Yes
[2024-08-16] MEDS: POTASSIUM BICARBONATE/CIT AC 20 MEQ TABLET.EFF NG-TUBE SCH ×2 (05:23→16:19)
[2024-08-16 07:05] LABS: Glucose,Whole Blood 216 mg/dL (70-110)
--- NOTE | 2024-08-16 09:48 | XR ---
EXAMINATION TYPE: XR chest 1V portable DATE OF EXAM: 08/16/2024 COMPARISON: 08/15/2024 INDICATION: Tube placement TECHNIQUE: Single frontal view of the chest is obtained. FINDINGS: The heart size is only prominent. The pulmonary vasculature is normal. Left lower lobe infiltrate is present. This is improving from comparison. Right central venous catheter is present with the tip in the superior vena cava region. Endotracheal tube tip is above the gerardo. Nasogastric tube tip is in the abdomen. IMPRESSION: 1. Improving left lower lobe infiltrate. There is improvement of previous right lower lobe infiltrate . 2. Lines and catheters discussed above [facility], , 08/16/2024 9:45 AM
[2024-08-16] MEDS: DEXTROSE 5% IN WATER 1,000 ML IV SCH (10:55)
--- NOTE | 2024-08-16 11:11 | P.PN ---
Subjective Progress Note Date: 08/16/24 Acute hypoxic respiratory failure secondary to extensive left lower lobe pneumonia, community-acquired Is a 78-year-old female with history of multiple medical problems including asthma, hypertension, diabetes, dyslipidemia, obstructive sleep apnea syndrome, degenerative joint disease, patient presented to the ER yesterday with chief complaint of nausea vomiting and diarrhea. Patient was also complaining of some vague abdominal pain radiating to the back, shortness of breath, coffee-ground emesis, and melena. Patient apparently had chronic abdominal pain, and she had extensive abdominal workup by gastroenterology in the past. Apparently in the ER workup was done and she was found to have an extensive left lower lobe pneumonia patient had some shortness of breath, minimal cough. She was noted to have leukocytosis with WBC of 18.6 hemoglobin 10.2. She was also noted to have low potassium, and significantly elevated procalcitonin of 8.54. Patient was placed on antibiotics in the form of Rocephin and Zithromax. She was noted to be hypotensive and the patient was given a stress dose of hydrocortisone, she is normally on Cortef. Patient was admitted and this consult was initiated. P atient did not improve with fluid boluses and with hydrocortisone hence patient was placed on norepinephrine and she is presently on 0.03 mcg/kg/min, and she will be admitted to the ICU since the patient is requiring pressors. After evaluating the patient and knowing that the patient has history of renal insufficiency, I recommended Solu-Cortef 100 mg IV push every 8 hours for the next 24 hours. And will address the dose accordingly in the next 24 hours Patient was evaluated today on 08/14/2024, remains in the ICU, I saw this patient yesterday on consultation, she was hypotensive in the ER requiring norepinephrine briefly. Patient was admitted with left lower lobe pneumonia and what seems to be an relative adrenal insufficiency responded well to stress doses of hydrocortisone. Patient is now off pressors, she did receive fluid boluses, and remains on Solu-Cortef 100 mg IV push every 8 hours. Her blood pressure is much better today, patient is feeling better, breathing easier, she is empirically on antibiotics for her left lower lobe pneumonia. WBC count is 14.2 hemoglobin 10.9 basic metabolic profile is normal bicarb is 16 BUN is normal creatinine is now Reevaluated today on 08/15/2024, patient developed worsening shortness of breath this morning worsening metabolic acidosis this morning patient was also hypertensive, tachycardic, tachypneic, required intubation mechanical ventilation earlier this morning. Her ABG postintubation showed a pO2 of 129 pCO2 39 pH of 7.27. Patient is on assist-control rate of 16 tidal volume 300 FiO2 45% and PEEP of 5 hence her FiO2 was cut down to 40%, patient received 1 amp of bicarb. Patient had elevated procalcitonin level of 8.54, her antibiotics were changed from Rocephin and Zithromax to Zosyn. Patient may have sustained some aspiration pneumonia as her chest x-ray is showing worsening pneumonia in the left lower lobe and right lower lobe. She is on norepinephrine at 0.065 mcg/kg/min propofol at 35 mcg/kg/min she is also on IV fluid at 75 cc/h. Solu-Cortef was increased again to 50 mg IV push every 8 hours.WBC count is 16.7 hemoglobin is 10 her bicarb earlier on the electrolytes was only 9. And she had anion gap of 14. CODE STATUS was changed by family today to DNR CODE STATUS and I believe that is appropriate considering her multiple comorbidities. Upon my evaluation this morning in the ICU, patient was hypotensive requiring norepinephrine and she received fluid boluses patient had an arterial line and triple-lumen catheter placed immediately as she had no good peripheral access and respiratory could not even obtain ABG this morning. Patient was evaluated today on 08/16/2024, remains in the ICU. No overnight events reported. Patient remains on the mechanical ventilator at a rate of 16, tidal volume 300, FiO2 of 40%, and PEEP of 5.0. She is on propofol at 75 mcg/kg/min, receiving IV fluids at 75 cc/hr, and on norepinephrine at 0.07 mcg/kg/min. She is also on Zosyn. Her WBC count decreased from 16.7 to 9.8 this morning. Hemogobin is 10.1. Sodium increased to 149, potassium decreased to 2.7. Her AST and ALT were 1007 and 1429, respectively. Her ABGs from this morning had a pO2 of 127, pCO2 of 43, and a pH of 7.33. Since her sodium was elevated this morning, we switched her from normal saline to receiving D5W at 75ml/hr. Her Chest X ray this morning showed improving Left Lower Lobe infiltrate and improvement of previous Right Lower Lobe infiltrate. Objective - Vital Signs Vital signs: Vital Signs Temp 96.8 F L 08/16/24 08:00 Pulse 70 08/16/24 08:00 Resp 14 08/16/24 08:00 BP 111/63 08/16/24 08:00 Pulse Ox 100 08/16/24 08:00 FiO2 40 08/16/24 08:00 Intake & Output 08/15/24 08/16/24 08/16/24 18:59 06:59 18:59 Intake Total 9991.464 5746.795 320 Output Total 515 430 100 Balance 788.777 4118.795 220 Intake: IV 100 875 250 Piperacillin-Tazobactam 3 100 200 100 .375 gm In Sodium Chloride 0.9% 100 ml @ 25 mls/hr IVPB Q8HR [facility] Rx# :[id number] Sodium Chloride 0.9% 1, 675 150 000 ml @ 75 mls/hr IV . [id number] R[facility] Rx#:[id number] Intake, IV Titration 1105.756 430.795 Amount Norepinephrine 4 mg In 33.588 157.275 Sodium Chloride 0.9% 250 ml @ 0.03 MCG/KG/MIN 5. 486 mls/hr IV .Q24H [facility] Rx#:[id number] Sodium Chloride 0.9% 1, 1000 000 ml @ 999 mls/hr IV . Q1H1M ONE Rx#:[id number] propofoL 1,000 mg In 72.168 273.52 Empty Bag 1 bag @ 75 MCG/ KG/MIN 21.6 mls/hr IV . Q4H38M RITESH Rx#:[id number] Tube Feeding 90 250 40 Other 60 90 30 Output: Urine 515 430 100 Other: Voiding Method Indwelling Catheter Indwelling Catheter Indwelling Catheter ABP, PAP, CO, CI - Last Documented Arterial Blood Pressure 116/51 - Exam GENERAL EXAM: Revealed 78-year-old female, frail looking, chronically ill, in no distress, on mechanical ventilation. Sedated, on propofol. HEAD: Normocephalic/atraumatic. Endotracheal tube and orogastric tube are intact. EYES: Normal reaction of pupils, equal size. Conjunctiva pink, sclera white. NOSE: Clear with pink turbinates. THROAT: No erythema or exudates. NECK: No masses, no JVD, no thyroid enlargement, no adenopathy. CHEST: No chest wall deformity. Symmetrical expansion. LUNGS: Clear to auscultation bilaterally, no wheezing/stridor. CVS: Regular rate and rhythm, normal S1 and S2, no murmurs ABDOMEN: Soft, nontender. Nondistended. EXTREMITIES: No LE edema. SKIN: No rashes CENTRAL NERVOUS SYSTEM: Not assessed this morning because she is on propofol. PSYCHIATRIC: Could not assess - Labs CBC & Chem 7: 08/16/24 04:20 08/16/24 04:20 Labs: Abnormal Lab Results - Last 24 Hours (Table) 08/15/24 08/15/24 08/15/24 Range/Units 08:40 09:09 12:32 RBC (3.80-5.40) m/uL Hgb (11.4-16.0) gm/dL Hct (34.0-46.0) % RDW (11.5-15.5) % Neutrophils # (1.3-7.7) k/uL Lymphocytes # (1.0-4.8) k/uL ABG pH 7.28 L (7.35-7.45) ABG pCO2 (35-45) mmHg ABG pO2 129 H (83-108) mmHg ABG HCO3 18 L (21-25) mmol/L ABG Total CO2 (19-24) mmol/L ABG O2 Saturation 98.2 H (94-97) % Hemoglobin (11.4-16.0) gm/dL Sodium (137-145) mmol/L Potassium (3.5-5.1) mmol/L Chloride (98-107) mmol/L BUN (7-17) mg/dL Glucose (74-99) mg/dL POC Glucose (mg/dL) 247 H (70-110) mg/dL Calcium (8.4-10.2) mg/dL Magnesium (1.6-2.3) mg/dL AST (14-36) U/L ALT (4-34) U/L Total Protein (6.3-8.2) g/dL Albumin (3.5-5.0) g/dL Urine Protein 1+ H (Negative) Urine Glucose (UA) 4+ H (Negative) Urine Ketones 1+ H (Negative) Urine Blood Small H (Negative) Urine Mucus Rare H (None) /hpf 08/15/24 08/15/24 08/15/24 Range/Units 15:49 16:48 20:59 RBC (3.80-5.40) m/uL Hgb (11.4-16.0) gm/dL Hct (34.0-46.0) % RDW (11.5-15.5) % Neutrophils # (1.3-7.7) k/uL Lymphocytes # (1.0-4.8) k/uL ABG pH (7.35-7.45) ABG pCO2 28 L (35-45) mmHg ABG pO2 115 H (83-108) mmHg ABG HCO3 17 L (21-25) mmol/L ABG Total CO2 18 L (19-24) mmol/L ABG O2 Saturation 98.1 H (94-97) % Hemoglobin 10.1 L (11.4-16.0) gm/dL Sodium (137-145) mmol/L Potassium (3.5-5.1) mmol/L Chloride (98-107) mmol/L BUN (7-17) mg/dL Glucose (74-99) mg/dL POC Glucose (mg/dL) 233 H 240 H (70-110) mg/dL Calcium (8.4-10.2) mg/dL Magnesium (1.6-2.3) mg/dL AST (14-36) U/L ALT (4-34) U/L Total Protein (6.3-8.2) g/dL Albumin (3.5-5.0) g/dL Urine Protein (Negative) Urine Glucose (UA) (Negative) Urine Ketones (Negative) Urine Blood (Negative) Urine Mucus (None) /hpf 08/16/24 08/16/24 08/16/24 Range/Units 00:51 04:08 04:20 RBC 3.66 L (3.80-5.40) m/uL Hgb 10.1 L (11.4-16.0) gm/dL Hct 32.3 L (34.0-46.0) % RDW 15.6 H (11.5-15.5) % Neutrophils # 8.9 H (1.3-7.7) k/uL Lymphocytes # 0.4 L (1.0-4.8) k/uL ABG pH (7.35-7.45) ABG pCO2 (35-45) mmHg ABG pO2 (83-108) mmHg ABG HCO3 (21-25) mmol/L ABG Total CO2 (19-24) mmol/L ABG O2 Saturation (94-97) % Hemoglobin (11.4-16.0) gm/dL Sodium (137-145) mmol/L Potassium (3.5-5.1) mmol/L Chloride (98-107) mmol/L BUN (7-17) mg/dL Glucose (74-99) mg/dL POC Glucose (mg/dL) 237 H 222 H (70-110) mg/dL Calcium (8.4-10.2) mg/dL Magnesium (1.6-2.3) mg/dL AST (14-36) U/L ALT (4-34) U/L Total Protein (6.3-8.2) g/dL Albumin (3.5-5.0) g/dL Urine Protein (Negative) Urine Glucose (UA) (Negative) Urine Ketones (Negative) Urine Blood (Negative) Urine Mucus (None) /hpf 08/16/24 08/16/24 08/16/24 Range/Units 04:20 05:40 07:03 RBC (3.80-5.40) m/uL Hgb (11.4-16.0) gm/dL Hct (34.0-46.0) % RDW (11.5-15.5) % Neutrophils # (1.3-7.7) k/uL Lymphocytes # (1.0-4.8) k/uL ABG pH 7.33 L (7.35-7.45) ABG pCO2 (35-45) mmHg ABG pO2 127 H (83-108) mmHg ABG HCO3 (21-25) mmol/L ABG Total CO2 (19-24) mmol/L ABG O2 Saturation 98.3 H (94-97) % Hemoglobin 10.4 L (11.4-16.0) gm/dL Sodium 149 H (137-145) mmol/L Potassium 2.7 L* (3.5-5.1) mmol/L Chloride 121 H (98-107) mmol/L BUN 35 H (7-17) mg/dL Glucose 203 H (74-99) mg/dL POC Glucose (mg/dL) 216 H (70-110) mg/dL Calcium 7.3 L (8.4-10.2) mg/dL Magnesium 2.4 H (1.6-2.3) mg/dL AST 1007 H (14-36) U/L ALT 1429 H (4-34) U/L Total Protein 4.3 L (6.3-8.2) g/dL Albumin 2.3 L (3.5-5.0) g/dL Urine Protein (Negative) Urine Glucose (UA) (Negative) Urine Ketones (Negative) Urine Blood (Negative) Urine Mucus (None) /hpf Microbiology - Last 24 Hours (Table) 08/12/24 12:36 Blood Culture - Preliminary Blood Assessment and Plan Assessment: Impression: Acute hypoxic respiratory failure secondary to pneumonia, strongly suspect aspiration pneumonia with bilateral basilar infiltrates. Acute on chronic adrenal insufficiency with hypotension, acute sepsis and possible septic shock is possible Hypotension could be secondary to adrenal insufficiency responded to stress doses of Solu-Cortef. History of coronary artery disease History of Takotsubo syndrome History of obstructive sleep apnea syndrome Benign essential hypertension Type 2 diabetes History of gout Dyslipidemia Degenerative joint disease Recommendation: Continue ventilatory support, vent settings were addressed Continue antibiotics, check sputum culture. Continue Solu-Cortef, dose is now 50 mg IV push every 8 hours patient received high doses initially for low blood pressure Discontinued NS 0.9% Switched to D5W at a rate of 75 ml/hr. Continue bronchodilators Continue hemodynamic support, titrate norepinephrine accordingly Critical care time is over 30 minutes not including the time spent on procedures Will continue to follow Time with Patient: Greater than 30
[2024-08-16 11:57] LABS: Glucose,Whole Blood 236 mg/dL (70-110)
--- NOTE | 2024-08-16 14:41 | P.PN ---
Subjective Progress Note Date: 08/16/24 Required intubation yesterday .ventilator dependent, FiO2 40%/+5 of PEEP. Maintained on diprovan, fentanyl and Levophed drips. Yesterday chest x-ray reported bibasilar infiltrates ,antibiotics adjusted to Zosyn, possible aspiration pneumonia. Chest x-ray pending .sodium increased to 149 with IV fluids adjusted to D5W. Potassium 2.7, receiving supplementation. Bicarb 23, BUN 35, creatinine 0.77. AST 1000 07, alk phos 1429. Objective - Vital Signs Vital signs: Vital Signs Temp 96.8 F L 08/16/24 08:00 Pulse 72 08/16/24 09:00 Resp 13 08/16/24 09:00 BP 113/65 08/16/24 09:00 Pulse Ox 100 08/16/24 09:00 FiO2 40 08/16/24 08:36 Intake & Output 08/15/24 08/16/24 08/16/24 18:59 06:59 18:59 Intake Total 0830.640 1580.795 585.916 Output Total 515 430 150 Balance 614.887 2615.795 435.916 Intake: IV 100 875 325 Piperacillin-Tazobactam 3 100 200 100 .375 gm In Sodium Chloride 0.9% 100 ml @ 25 mls/hr IVPB Q8HR [facility] Rx# :[id number] Sodium Chloride 0.9% 1, 675 225 000 ml @ 75 mls/hr IV . [id number] [facility] Rx#:[id number] Intake, IV Titration 1105.756 430.795 140.916 Amount Norepinephrine 4 mg In 33.588 157.275 48.036 Sodium Chloride 0.9% 250 ml @ 0.03 MCG/KG/MIN 5. 486 mls/hr IV .Q24H [facility] Rx#:[id number] Sodium Chloride 0.9% 1, 1000 000 ml @ 999 mls/hr IV . Q1H1M [facility] Rx#:[id number] propofoL 1,000 mg In 72.168 273.52 92.88 Empty Bag 1 bag @ 75 MCG/ KG/MIN 21.6 mls/hr IV . Q4H38M [facility] Rx#:[id number] Tube Feeding 90 250 60 Other 60 90 60 Output: Urine 515 430 150 Other: Voiding Method Indwelling Catheter Indwelling Catheter Indwelling Catheter ABP, PAP, CO, CI - Last Documented Arterial Blood Pressure 118/53 - Exam PHYSICAL EXAM: VITAL SIGNS: [As above] GENERAL: Sedated and intubated, appears calm HEENT: Normocephalic, atraumatic ,conjunctivae normal. eyes normal. NECK: Supple, no JVD. CARDIOVASCULAR: S1, S2 regular.. No murmur RESPIRATION: Unlabored, equal air entry, essentially clear ABDOMEN: Soft, nontender . No hepatomegaly, positive bowel sounds LEGS: No edema. no swelling NERVOUS SYSTEM: Unable to evaluate, sedated and intubated Skin: Warm and dry, no rashes noted - Labs CBC & Chem 7: 08/16/24 04:20 08/16/24 04:20 Labs: Abnormal Lab Results - Last 24 Hours (Table) 08/15/24 08/15/24 08/15/24 Range/Units 08:40 09:09 12:32 RBC (3.80-5.40) m/uL Hgb (11.4-16.0) gm/dL Hct (34.0-46.0) % RDW (11.5-15.5) % Neutrophils # (1.3-7.7) k/uL Lymphocytes # (1.0-4.8) k/uL ABG pH 7.28 L (7.35-7.45) ABG pCO2 (35-45) mmHg ABG pO2 129 H (83-108) mmHg ABG HCO3 18 L (21-25) mmol/L ABG Total CO2 (19-24) mmol/L ABG O2 Saturation 98.2 H (94-97) % Hemoglobin (11.4-16.0) gm/dL Sodium (137-145) mmol/L Potassium (3.5-5.1) mmol/L Chloride (98-107) mmol/L BUN (7-17) mg/dL Glucose (74-99) mg/dL POC Glucose (mg/dL) 247 H (70-110) mg/dL Calcium (8.4-10.2) mg/dL Magnesium (1.6-2.3) mg/dL AST (14-36) U/L ALT (4-34) U/L Total Protein (6.3-8.2) g/dL Albumin (3.5-5.0) g/dL Urine Protein 1+ H (Negative) Urine Glucose (UA) 4+ H (Negative) Urine Ketones 1+ H (Negative) Urine Blood Small H (Negative) Urine Mucus Rare H (None) /hpf 08/15/24 08/15/24 08/15/24 Range/Units 15:49 16:48 20:59 RBC (3.80-5.40) m/uL Hgb (11.4-16.0) gm/dL Hct (34.0-46.0) % RDW (11.5-15.5) % Neutrophils # (1.3-7.7) k/uL Lymphocytes # (1.0-4.8) k/uL ABG pH (7.35-7.45) ABG pCO2 28 L (35-45) mmHg ABG pO2 115 H (83-108) mmHg ABG HCO3 17 L (21-25) mmol/L ABG Total CO2 18 L (19-24) mmol/L ABG O2 Saturation 98.1 H (94-97) % Hemoglobin 10.1 L (11.4-16.0) gm/dL Sodium (137-145) mmol/L Potassium (3.5-5.1) mmol/L Chloride (98-107) mmol/L BUN (7-17) mg/dL Glucose (74-99) mg/dL POC Glucose (mg/dL) 233 H 240 H (70-110) mg/dL Calcium (8.4-10.2) mg/dL Magnesium (1.6-2.3) mg/dL AST (14-36) U/L ALT (4-34) U/L Total Protein (6.3-8.2) g/dL Albumin (3.5-5.0) g/dL Urine Protein (Negative) Urine Glucose (UA) (Negative) Urine Ketones (Negative) Urine Blood (Negative) Urine Mucus (None) /hpf 08/16/24 08/16/24 08/16/24 Range/Units 00:51 04:08 04:20 RBC 3.66 L (3.80-5.40) m/uL Hgb 10.1 L (11.4-16.0) gm/dL Hct 32.3 L (34.0-46.0) % RDW 15.6 H (11.5-15.5) % Neutrophils # 8.9 H (1.3-7.7) k/uL Lymphocytes # 0.4 L (1.0-4.8) k/uL ABG pH (7.35-7.45) ABG pCO2 (35-45) mmHg ABG pO2 (83-108) mmHg ABG HCO3 (21-25) mmol/L ABG Total CO2 (19-24) mmol/L ABG O2 Saturation (94-97) % Hemoglobin (11.4-16.0) gm/dL Sodium (137-145) mmol/L Potassium (3.5-5.1) mmol/L Chloride (98-107) mmol/L BUN (7-17) mg/dL Glucose (74-99) mg/dL POC Glucose (mg/dL) 237 H 222 H (70-110) mg/dL Calcium (8.4-10.2) mg/dL Magnesium (1.6-2.3) mg/dL AST (14-36) U/L ALT (4-34) U/L Total Protein (6.3-8.2) g/dL Albumin (3.5-5.0) g/dL Urine Protein (Negative) Urine Glucose (UA) (Negative) Urine Ketones (Negative) Urine Blood (Negative) Urine Mucus (None) /hpf 08/16/24 08/16/24 08/16/24 Range/Units 04:20 05:40 07:03 RBC (3.80-5.40) m/uL Hgb (11.4-16.0) gm/dL Hct (34.0-46.0) % RDW (11.5-15.5) % Neutrophils # (1.3-7.7) k/uL Lymphocytes # (1.0-4.8) k/uL ABG pH 7.33 L (7.35-7.45) ABG pCO2 (35-45) mmHg ABG pO2 127 H (83-108) mmHg ABG HCO3 (21-25) mmol/L ABG Total CO2 (19-24) mmol/L ABG O2 Saturation 98.3 H (94-97) % Hemoglobin 10.4 L (11.4-16.0) gm/dL Sodium 149 H (137-145) mmol/L Potassium 2.7 L* (3.5-5.1) mmol/L Chloride 121 H (98-107) mmol/L BUN 35 H (7-17) mg/dL Glucose 203 H (74-99) mg/dL POC Glucose (mg/dL) 216 H (70-110) mg/dL Calcium 7.3 L (8.4-10.2) mg/dL Magnesium 2.4 H (1.6-2.3) mg/dL AST 1007 H (14-36) U/L ALT 1429 H (4-34) U/L Total Protein 4.3 L (6.3-8.2) g/dL Albumin 2.3 L (3.5-5.0) g/dL Urine Protein (Negative) Urine Glucose (UA) (Negative) Urine Ketones (Negative) Urine Blood (Negative) Urine Mucus (None) /hpf Microbiology - Last 24 Hours (Table) 08/12/24 12:36 Blood Culture - Preliminary Blood Assessment and Plan Assessment: Sepsis secondary to acute left lower lobe pneumonia, community-acquired. Chest x-ray on 08/15/2024 reported bibasilar infiltrates,suspecting aspiration pn eumonia as per pulmonary. Procalcitonin 8.54 Hypotension and tachycardia secondary to the above, adrenal insufficiency Acute hypoxic respiratory failure secondary to all the above, mechanical ventila tor dependent Diabetes mellitus II, hemoglobin A1c 7.6 Acute on chronic adrenal insufficiency History of nonischemic cardiomyopathy EF 20-25% taku subo syndrome Mild to moderate pulmonary hypertension Chronic paroxysmal atrial fibrillation Hypertension Hyperlipidemia Gastroesophageal reflux disease Obstructive Sleep apnea, with CPAP, at home Anxiety Mild protein calorie malnutrition Hypokalemia Hypomagnesemia Hypernatremia No code Plan: Continue on current medication regime, monitoring and symptomatic treatment. ICU management as per nurse midwife/clinical instructor. IV fluid hydration, Solu-Cortef, pressor support.sputum and blood cultures in progress. Maintained on Zosyn. Aggressive pulmonary toileting with nebulized bronchodilators. No vent weaning trials today as per pulmonary. The impression and plan of care has been dictated as directed. : I performed a history and examination of this patient, discussed the same with the dictator. I agree with the dictator's note ,documented as a scribe. Any additional findings or plans will be noted.
[2024-08-16 16:09] LABS: Glucose,Whole Blood 246 mg/dL (70-110)
[2024-08-16 20:11] LABS: Glucose,Whole Blood 289 mg/dL (70-110)
[2024-08-16] MEDS ORDERED: DEXTROSE 50% SYRINGE 50 ML IVP PRN ×2 (23:37)
[2024-08-16 23:51] LABS: Glucose,Whole Blood 256 mg/dL (70-110)
[2024-08-16] MEDS: INSULIN ASPART (NovoLOG) 100 UNIT/ML VIAL SQ SCH (23:56)
[2024-08-17] MEDS ORDERED: Potassium Replacement Protocol 1 EACH MISC MISCELLANE PRN (01:03)
[2024-08-17] MEDS: POTASSIUM BICARBONATE/CIT AC 20 MEQ TABLET.EFF NG-TUBE SCH (02:15)
[2024-08-17 04:26] LABS: Glucose,Whole Blood 255 mg/dL (70-110)
[2024-08-17 04:42] LABS: Basophils % (A) 0 %; Eosinophils % (A) 0 %; HCT 29.9 % (34.0-46.0); HGB 9.5 gm/dL (11.4-16.0); Hypochromasia Moderate; Lymphocytes # (A) 0.4 k/uL (1.0-4.8); Lymphocytes % (A) 4 %; MCH 27.7 pg (25.0-35.0); MCHC 31.6 g/dL (31.0-37.0); MCV 87.5 fL (80.0-100.0); Mean Platelet Volume 8.9; Monocytes # (A) 0.5 k/uL (0-1.0); Monocytes % (A) 5 %; Neutrophils # (A) 8.1 k/uL (1.3-7.7); Neutrophils % (A) 90 %; Platelet Count 253 k/uL (150-450); RBC 3.42 m/uL (3.80-5.40); RDW 15.8 % (11.5-15.5)
[2024-08-17 04:58] LABS: AST 273 U/L (14-36); African American GFR (CKD) >90 (>60 ml/min/1.73 sqM); Albumin 2.1 g/dL (3.5-5.0); Alkaline Phosphatase 77 U/L (38-126); Anion Gap -1 mmol/L; Blood Urea Nitrogen 25 mg/dL (7-17); Calcium 7.1 mg/dL (8.4-10.2); Carbon Dioxide 28 mmol/L (22-30); Chloride 117 mmol/L (98-107); Glucose 245 mg/dL (74-99); Non-African American GFR(CKD) 86 (>60 ml/min/1.73 sqM); Potassium 4.2 mmol/L (3.5-5.1); Sodium 144 mmol/L (137-145); Total Bilirubin 0.2 mg/dL (0.2-1.3); Total Protein 4.1 g/dL (6.3-8.2)
[2024-08-17 05:08] LABS: ALT 956 U/L (4-34)
[2024-08-17 05:26] LABS: ABG HCO3 27 mmol/L (21-25); ABG Oxygen Saturation 98.6 % (94-97); ABG PCO2 43 mmHg (35-45); ABG PH 7.41 (7.35-7.45); ABG PO2 122 mmHg (83-108); ABG TCO2 28 mmol/L (19-24); Allen Test Performed? Yes
[2024-08-17 08:39] LABS: Glucose,Whole Blood 243 mg/dL (70-110)
--- NOTE | 2024-08-17 09:00 | XR ---
EXAMINATION TYPE: XR chest 1V portable DATE OF EXAM: 08/17/2024 COMPARISON: 08/16/2024 INDICATION: Tube placement difficulty breathing TECHNIQUE: Single frontal view of the chest is obtained. FINDINGS: The heart size is mildly prominent. The pulmonary vasculature is somewhat prominent. Mild bibasilar infiltrates may be present. There is silhouetting left diaphragm. Right central venous catheter is present with tip in the distal superior vena cava region. Endotrache al tube tip is above the gerardo. Nasogastric tube transverses the thorax with tip in left upper quadr ant of the abdomen. IMPRESSION: 1. Stable bibasilar infiltrates. Correlate for atelectasis and pneumonia. Small left pleural effusion not excluded. 2. Lines and catheters discussed above, stable. [facility], , 08/17/2024 8:57 AM
[2024-08-17] MEDS: HYDROmorphone 1 MG/ML 1 ML SYRINGE IVP PRN (09:23)
--- NOTE | 2024-08-17 10:35 | P.PN ---
Subjective Progress Note Date: 08/17/24 Principal diagnosis: Respiratory failure. Is a 78-year-old female with history of multiple medical problems including asthma, hypertension, diabetes, dyslipidemia, obstructive sleep apnea syndrome, degenerative joint disease, patient presented to the ER yesterday with chief complaint of nausea vomiting and diarrhea. Patient was also complaining of some vague abdominal pain radiating to the back, shortness of breath, coffee-ground emesis, and melena. Patient apparently had chronic abdominal pain, and she had extensive abdominal workup by gastroenterology in the past. Apparently in the ER workup was done and she was found to have an extensive left lower lobe pneumonia patient had some shortness of breath, minimal cough. She was noted to have leukocytosis with WBC of 18.6 hemoglobin 10.2. She was also noted to have low potassium, and significantly elevated procalcitonin of 8.54. Patient was placed on antibiotics in the form of Rocephin and Zithromax. She was noted to be hypotensive and the patient was given a stress dose of hydrocortisone, she is normally on Cortef. Patient was admitted and this consult was initiated. Patient did not improve with fluid boluses and with hydrocortisone hence patient was placed on norepinephrine and she is presently on 0.03 mcg/kg/min, and she will be admitted to the ICU since the patient is requiring pressors. After ev aluating the patient and knowing that the patient has history of renal insufficiency, I recommended Solu-Cortef 100 mg IV push every 8 hours for the next 24 hours. And will address the dose accordingly in the next 24 hours Patient was evaluated today on 08/14/2024, remains in the ICU, I saw this patient yesterday on consultation, she was hypotensive in the ER requiring norepinephrine briefly. Patient was admitted with left lower lobe pneumonia and what seems to be an relative adrenal insufficiency responded well to stress doses of hydrocortisone. Patient is now off pressors, she did receive fluid boluses, and remains on Solu-Cortef 100 mg IV push every 8 hours. Her blood pressure is much better today, patient is feeling better, breathing easier, she is empirically on antibiotics for her left lower lobe pneumonia. WBC count is 14.2 hemoglobin 10.9 basic metabolic profile is normal bicarb is 16 BUN is normal creatinine is now Reevaluated today on 08/15/2024, patient developed worsening shortness of breath this morning worsening metabolic acidosis this morning patient was also hype rtensive, tachycardic, tachypneic, required intubation mechanical ventilation earlier this morning. Her ABG postintubation showed a pO2 of 129 pCO2 39 pH of 7.27. Patient is on assist-control rate of 16 tidal volume 300 FiO2 45% and PEEP of 5 hence her FiO2 was cut down to 40%, patient received 1 amp of bicarb. Patient had elevated procalcitonin level of 8.54, her antibiotics were changed from Rocephin and Zithromax to Zosyn. Patient may have sustained some aspiration pneumonia as her chest x-ray is showing worsening pneumonia in the left lower lobe and right lower lobe. She is on norepinephrine at 0.065 mcg/kg/min propofol at 35 mcg/kg/min she is also on IV fluid at 75 cc/h. Solu-Cortef was increased again to 50 mg IV push every 8 hours.WBC count is 16.7 hemoglobin is 10 her bicarb earlier on the electrolytes was only 9. And she had anion gap of 14. CODE STATUS was changed by family today to DNR CODE STATUS and I believe that is appropriate considering her multiple comorbidities. Upon my evaluation this morning in the ICU, patient was hypotensive requiring norepinephrine and she received fluid boluses patient had an arterial line and triple-lumen catheter placed immediately as she had no good peripheral access and respiratory could not even obtain ABG this morning. Patient was evaluated today on 08/16/2024, remains in the ICU. No overnight events reported. Patient remains on the mechanical ventilator at a rate of 16, tidal volume 300, FiO2 of 40%, and PEEP of 5.0. She is on propofol at 75 mcg/kg/min, receiving IV fluids at 75 cc/hr, and on norepinephrine at 0.07 m cg/kg/min. She is also on Zosyn. Her WBC count decreased from 16.7 to 9.8 this morning. Hemogobin is 10.1. Sodium increased to 149, potassium decreased to 2.7. Her AST and ALT were 1007 and 1429, respectively. Her ABGs from this morning had a pO2 of 127, pCO2 of 43, and a pH of 7.33. Since her sodium was elevated this morning, we switched her from normal saline to receiving D5W at 75ml/hr. Her Aure st X ray this morning showed improving Left Lower Lobe infiltrate and improvement of previous Right Lower Lobe infiltrate. Progress note dated August 17, 2024. 78-year-old female seen in room 261. The patient remains on mechanical ventilator. She is on volume assist-control, rate 16, tidal volume 300, FiO2 35% to be dropped to 30%, PEEP of 5. Blood gases show pO2 of 122, pCO2 of 43, pH of 7.41. The patient is on propofol at 50 mcg/kg/min, fentanyl at 0.5 mcg/kg/h, and norepinephrine has been weaned off. She is getting D5W at 75 cc an hour. We will attempt to discontinue the fentanyl drip, and start her on some as needed Dilaudid. In addition, the patient is getting vital AF at 10 cc an hour, which is goal. If off propofol, and the patient is appropriate, we will attempt a spontaneous breathing trial. Current white count 9, hemoglobin 9.5, hematocrit 29.9, with a normal platelet count. Sodium 144, potassium 4.2, chlorides 117, CO2 28, BUN 25, creatinine 0.62. Glucose is 243. AST is 273. ALT is 956. Albumin is 2.1. Blood and sputum sampling is thus far negative. Chest x-ray shows some stable bibasilar infiltrates, which may reflect either atelectasis, and or pneumonia. Objective - Vital Signs Vital signs: Vital Signs Temp 98.0 F 08/17/24 08:00 Pulse 68 08/17/24 09:30 Resp 16 08/17/24 09:30 BP 93/53 08/17/24 09:00 Pulse Ox 99 08/17/24 09:30 FiO2 30 08/17/24 09:30 Intake & Output 08/16/24 08/17/24 08/17/24 18:59 06:59 18:59 Intake Total 8716.034 9089.44 545.491 Output Total 610 534 95 Balance 3819.776 5473.44 450.491 Weight 54.4 kg 54.9 kg Intake: IV 1100 1000 335 Dextrose 5% in Water 1, 600 900 225 000 ml @ 75 mls/hr IV . [id number] [facility] Rx#:[id number] Invasive Line 2 10 Piperacillin-Tazobactam 3 200 100 100 .375 gm In Sodium Chloride 0.9% 100 ml @ 25 mls/hr IVPB Q8HR [facility] Rx# :[id number] Sodium Chloride 0.9% 1, 300 000 ml @ 75 mls/hr IV . [id number] [facility] Rx#:[id number] Intake, IV Titration 397.768 336.44 140.491 Amount Norepinephrine 4 mg In 121.008 50.907 Sodium Chloride 0.9% 250 ml @ 0.03 MCG/KG/MIN 5. 486 mls/hr IV .Q24H [facility] Rx#:[id number] Sodium Chloride 0.9% 80 66.16 28.24 ml @ 0.5 MCG/KG/HR 2.4 mls/hr IV .Q24H [facility] with fentaNYL (PF) 1,000 mcg Rx#:[id number] propofoL 1,000 mg In 276.76 270.28 61.344 Empty Bag 1 bag @ 75 MCG/ KG/MIN 21.6 mls/hr IV . Q4H38M [facility] Rx#:[id number] Tube Feeding 130 120 40 Other 90 90 30 Output: Urine 610 534 95 Other: Voiding Method Indwelling Catheter Indwelling Catheter ABP, PAP, CO, CI - Last Documented Arterial Blood Pressure 88/32 - Exam No acute distress, sedated, with an orally placed endotracheal tube. HEENT examination is grossly unremarkable. Neck supple. Full range of motion. No adenopathy thyromegaly or neck vein distention. Cardiovascular examination reveals regular rhythm rate. S1-S2 normal. No S3 or S4. No discernible murmur noted. Heart rate 68 bpm. Lungs reveal scattered rhonchi and wheezes. Breath sounds equal. Saturations are 99% on 30% FiO2. No crackles. Abdomen soft bowel sounds are heard. No masses or tenderness. Extremities are intact. No cyanosis clubbing or edema. Skin is without rash or lesion. Neurologic examination is unable to be evaluated at this time. - Labs CBC & Chem 7: 08/17/24 04:22 08/17/24 04:22 Labs: Abnormal Lab Results - Last 24 Hours (Table) 08/16/24 08/16/24 08/16/24 Range/Units 11:56 15:00 16:07 RBC (3.80-5.40) m/uL Hgb (11.4-16.0) gm/dL Hct (34.0-46.0) % RDW (11.5-15.5) % Neutrophils # (1.3-7.7) k/uL Lymphocytes # (1.0-4.8) k/uL ABG pO2 (83-108) mmHg ABG HCO3 (21-25) mmol/L ABG Total CO2 (19-24) mmol/L ABG O2 Saturation (94-97) % Hemoglobin (11.4-16.0) gm/dL Potassium 3.4 L (3.5-5.1) mmol/L Chloride (98-107) mmol/L BUN (7-17) mg/dL Glucose (74-99) mg/dL POC Glucose (mg/dL) 236 H 246 H (70-110) mg/dL Calcium (8.4-10.2) mg/dL AST (14-36) U/L ALT (4-34) U/L Total Protein (6.3-8.2) g/dL Albumin (3.5-5.0) g/dL 08/16/24 08/16/24 08/17/24 Range/Units 20:10 23:49 04:22 RBC 3.42 L (3.80-5.40) m/uL Hgb 9.5 L (11.4-16.0) gm/dL Hct 29.9 L (34.0-46.0) % RDW 15.8 H (11.5-15.5) % Neutrophils # 8.1 H (1.3-7.7) k/uL Lymphocytes # 0.4 L (1.0-4.8) k/uL ABG pO2 (83-108) mmHg ABG HCO3 (21-25) mmol/L ABG Total CO2 (19-24) mmol/L ABG O2 Saturation (94-97) % Hemoglobin (11.4-16.0) gm/dL Potassium (3.5-5.1) mmol/L Chloride (98-107) mmol/L BUN (7-17) mg/dL Glucose (74-99) mg/dL POC Glucose (mg/dL) 289 H 256 H (70-110) mg/dL Calcium (8.4-10.2) mg/dL AST (14-36) U/L ALT (4-34) U/L Total Protein (6.3-8.2) g/dL Albumin (3.5-5.0) g/dL 08/17/24 08/17/24 08/17/24 Range/Units 04:22 04:25 05:10 RBC (3.80-5.40) m/uL Hgb (11.4-16.0) gm/dL Hct (34.0-46.0) % RDW (11.5-15.5) % Neutrophils # (1.3-7.7) k/uL Lymphocytes # (1.0-4.8) k/uL ABG pO2 122 H (83-108) mmHg ABG HCO3 27 H (21-25) mmol/L ABG Total CO2 28 H (19-24) mmol/L ABG O2 Saturation 98.6 H (94-97) % Hemoglobin 9.4 L (11.4-16.0) gm/dL Potassium (3.5-5.1) mmol/L Chloride 117 H (98-107) mmol/L BUN 25 H (7-17) mg/dL Glucose 245 H (74-99) mg/dL POC Glucose (mg/dL) 255 H (70-110) mg/dL Calcium 7.1 L (8.4-10.2) mg/dL AST 273 H (14-36) U/L ALT 956 H (4-34) U/L Total Protein 4.1 L (6.3-8.2) g/dL Albumin 2.1 L (3.5-5.0) g/dL 08/17/24 Range/Units 08:38 RBC (3.80-5.40) m/uL Hgb (11.4-16.0) gm/dL Hct (34.0-46.0) % RDW (11.5-15.5) % Neutrophils # (1.3-7.7) k/uL Lymphocytes # (1.0-4.8) k/uL ABG pO2 (83-108) mmHg ABG HCO3 (21-25) mmol/L ABG Total CO2 (19-24) mmol/L ABG O2 Saturation (94-97) % Hemoglobin (11.4-16.0) gm/dL Potassium (3.5-5.1) mmol/L Chloride (98-107) mmol/L BUN (7-17) mg/dL Glucose (74-99) mg/dL POC Glucose (mg/dL) 243 H (70-110) mg/dL Calcium (8.4-10.2) mg/dL AST (14-36) U/L ALT (4-34) U/L Total Protein (6.3-8.2) g/dL Albumin (3.5-5.0) g/dL Microbiology - Last 24 Hours (Table) 08/16/24 03:22 Gram Stain - Preliminary Sputum Assessment and Plan Assessment: Acute hypoxemic respiratory failure, secondary to aspiration pneumonia. Acute on chronic adrenal insufficiency, with hypotension, currently off of norepinephrine. History of coronary artery disease. History of Takotsubo syndrome. History of obstructive sleep apnea syndrome. Benign essential hypertension. Type 2 diabetes mellitus. History of gout. Hyperlipidemia. Degenerative joint disease. Plan: Plan dated August 17, 2024. The patient's hyponatremia, and hypochloremia, are improved. The patient will continue on D5W. She will continue on propofol for sedation for the time being. We will stop the fentanyl, and add as needed Dilaudid. She remains on tube feedings, at goal. Labs, x-rays, and medications are reviewed. The FiO2 is re duced from 35%, down to 30%. We will continue to follow the patient, make recommendations. If she arouses appropriately later today, off of propofol, we can attempt a spontaneous breathing trial. Additional recommendations and suggestions are forthcoming. Prognosis is guarded. Time with Patient: Less than 30
[2024-08-17 12:28] LABS: Glucose,Whole Blood 245 mg/dL (70-110)
[2024-08-17] MEDS: INSULIN ASPART (NovoLOG) 100 UNIT/ML VIAL SQ SCH (12:29)
--- NOTE | 2024-08-17 15:05 | P.PN ---
Subjective Progress Note Date: 08/17/24 Required intubation yesterday .ventilator dependent, FiO2 40%/+5 of PEEP. Maintained on diprovan, fentanyl and Levophed drips. Yesterday chest x-ray reported bibasilar infiltrates ,antibiotics adjusted to Zosyn, possible aspiration pneumonia. Chest x-ray pending .sodium increased to 149 with IV fluids adjusted to D5W. Potassium 2.7, receiving supplementation. Bicarb 23, BUN 35, creatinine 0.77. AST 1000 07, alk phos 1429. 08/17/2024 remains vent dependent, FiO2 decreased to 30%/+5 of PEEP. Chest x-ray reporting stable bibasilar infiltrates .Levophed weaned off, continues on diprovan and fentanyl drips. Maintained on D5W, sodium decreased 144, chloride decreased 117. Afebrile, normal WBC, on Zosyn. Renal function improving, BUN 25, creatinine 0.62, bicarb 28. LFTs improving, AST decreased to 273, ALT decreased to 956. Albumin 2.1. Tolerating tube feeds at goal. Objective - Vital Signs Vital signs: Vital Signs Temp 98.0 F 08/17/24 08:00 Pulse 70 08/17/24 14:00 Resp 16 08/17/24 14:00 BP 111/59 08/17/24 14:00 Pulse Ox 99 08/17/24 14:00 FiO2 30 08/17/24 14:00 Intake & Output 08/16/24 08/17/24 08/17/24 18:59 06:59 18:59 Intake Total 3842.026 4381.44 1074.313 Output Total 610 534 345 Balance 9832.736 6994.44 729.313 Weight 54.4 kg 54.9 kg Intake: IV 1100 1000 720 Dextrose 5% in Water 1, 600 900 600 000 ml @ 75 mls/hr IV . [id number] [facility] Rx#:[id number] Invasive Line 2 20 Piperacillin-Tazobactam 3 200 100 100 .375 gm In Sodium Chloride 0.9% 100 ml @ 25 mls/hr IVPB Q8HR [facility] Rx# :[id number] Sodium Chloride 0.9% 1, 300 000 ml @ 75 mls/hr IV . [id number] [facility] Rx#:[id number] Intake, IV Titration 397.768 336.44 194.313 Amount Norepinephrine 4 mg In 121.008 62.369 Sodium Chloride 0.9% 250 ml @ 0.03 MCG/KG/MIN 5. 486 mls/hr IV .Q24H [facility] Rx#:[id number] Sodium Chloride 0.9% 80 66.16 28.24 ml @ 0.5 MCG/KG/HR 2.4 mls/hr IV .Q24H [facility] with fentaNYL (PF) 1,000 mcg Rx#:[id number] propofoL 1,000 mg In 276.76 270.28 103.704 Empty Bag 1 bag @ 75 MCG/ KG/MIN 21.6 mls/hr IV . Q4H38M [facility] Rx#:[id number] Tube Feeding 130 120 100 Other 90 90 60 Output: Urine 610 534 345 Other: Voiding Method Indwelling Catheter Indwelling Catheter Indwelling Catheter ABP, PAP, CO, CI - Last Documented Arterial Blood Pressure 125/53 - Exam PHYSICAL EXAM: VITAL SIGNS: [As above] GENERAL: Sedated and intubated, no acute distress. HEENT: Normocephalic, atraumatic ,conjunctivae normal. eyes normal. NECK: Supple, no JVD. CARDIOVASCULAR: S1, S2 regular. No murmur RESPIRATION: Unlabored, equal air entry, essentially clear ABDOMEN: Soft, nontender, nondistended, positive bowel sounds LEGS: No edema. no swelling NERVOUS SYSTEM: Unable to evaluate, sedated and intubated Skin: Warm and dry, no rashes noted Microbiology 08/16/24 03:22 Sputum Gram Stain - Preliminary 08/16/24 03:22 Sputum Sputum Culture - Preliminary Hannah albicans 08/12/24 12:36 Blood Blood Culture - Preliminary - Labs CBC & Chem 7: 08/17/24 04:22 08/17/24 04:22 Labs: Abnormal Lab Results - Last 24 Hours (Table) 08/16/24 08/16/24 08/16/24 Range/Units 15:00 16:07 20:10 RBC (3.80-5.40) m/uL Hgb (11.4-16.0) gm/dL Hct (34.0-46.0) % RDW (11.5-15.5) % Neutrophils # (1.3-7.7) k/uL Lymphocytes # (1.0-4.8) k/uL ABG pO2 (83-108) mmHg ABG HCO3 (21-25) mmol/L ABG Total CO2 (19-24) mmol/L ABG O2 Saturation (94-97) % Hemoglobin (11.4-16.0) gm/dL Potassium 3.4 L (3.5-5.1) mmol/L Chloride (98-107) mmol/L BUN (7-17) mg/dL Glucose (74-99) mg/dL POC Glucose (mg/dL) 246 H 289 H (70-110) mg/dL Calcium (8.4-10.2) mg/dL AST (14-36) U/L ALT (4-34) U/L Total Protein (6.3-8.2) g/dL Albumin (3.5-5.0) g/dL 08/16/24 08/17/24 08/17/24 Range/Units 23:49 04:22 04:22 RBC 3.42 L (3.80-5.40) m/uL Hgb 9.5 L (11.4-16.0) gm/dL Hct 29.9 L (34.0-46.0) % RDW 15.8 H (11.5-15.5) % Neutrophils # 8.1 H (1.3-7.7) k/uL Lymphocytes # 0.4 L (1.0-4.8) k/uL ABG pO2 (83-108) mmHg ABG HCO3 (21-25) mmol/L ABG Total CO2 (19-24) mmol/L ABG O2 Saturation (94-97) % Hemoglobin (11.4-16.0) gm/dL Potassium (3.5-5.1) mmol/L Chloride 117 H (98-107) mmol/L BUN 25 H (7-17) mg/dL Glucose 245 H (74-99) mg/dL POC Glucose (mg/dL) 256 H (70-110) mg/dL Calcium 7.1 L (8.4-10.2) mg/dL AST 273 H (14-36) U/L ALT 956 H (4-34) U/L Total Protein 4.1 L (6.3-8.2) g/dL Albumin 2.1 L (3.5-5.0) g/dL 08/17/24 08/17/24 08/17/24 Range/Units 04:25 05:10 08:38 RBC (3.80-5.40) m/uL Hgb (11.4-16.0) gm/dL Hct (34.0-46.0) % RDW (11.5-15.5) % Neutrophils # (1.3-7.7) k/uL Lymphocytes # (1.0-4.8) k/uL ABG pO2 122 H (83-108) mmHg ABG HCO3 27 H (21-25) mmol/L ABG Total CO2 28 H (19-24) mmol/L ABG O2 Saturation 98.6 H (94-97) % Hemoglobin 9.4 L (11.4-16.0) gm/dL Potassium (3.5-5.1) mmol/L Chloride (98-107) mmol/L BUN (7-17) mg/dL Glucose (74-99) mg/dL POC Glucose (mg/dL) 255 H 243 H (70-110) mg/dL Calcium (8.4-10.2) mg/dL AST (14-36) U/L ALT (4-34) U/L Total Protein (6.3-8.2) g/dL Albumin (3.5-5.0) g/dL 08/17/24 Range/Units 12:26 RBC (3.80-5.40) m/uL Hgb (11.4-16.0) gm/dL Hct (34.0-46.0) % RDW (11.5-15.5) % Neutrophils # (1.3-7.7) k/uL Lymphocytes # (1.0-4.8) k/uL ABG pO2 (83-108) mmHg ABG HCO3 (21-25) mmol/L ABG Total CO2 (19-24) mmol/L ABG O2 Saturation (94-97) % Hemoglobin (11.4-16.0) gm/dL Potassium (3.5-5.1) mmol/L Chloride (98-107) mmol/L BUN (7-17) mg/dL Glucose (74-99) mg/dL POC Glucose (mg/dL) 245 H (70-110) mg/dL Calcium (8.4-10.2) mg/dL AST (14-36) U/L ALT (4-34) U/L Total Protein (6.3-8.2) g/dL Albumin (3.5-5.0) g/dL Microbiology - Last 24 Hours (Table) 08/16/24 03:22 Gram Stain - Preliminary Sputum Sputum Culture - Preliminary Hannah albicans Assessment and Plan Assessment: Sepsis secondary to acute left lower lobe pneumonia, community-acquired. Chest x-ray on 08/15/2024 reported bibasilar infiltrates, aspiration pneumonia as per pulmonary. Procalcitonin 8.54 Hypotension and tachycardia secondary to the above, adrenal insufficiency, status post pressor dependent. Acute hypoxic respiratory failure secondary to all the above, mechanical ventilator dependent Diabetes mellitus II, hemoglobin A1c 7.6 Acute on chronic adrenal insufficiency History of nonischemic cardiomyopathy EF 20-25% taku subo syndrome Mild to moderate pulmonary hypertension Chronic paroxysmal atrial fibrillation Hypertension Hyperlipidemia Gastroesophageal reflux disease Obstructive Sleep apnea, with CPAP, at home Anxiety Mild protein calorie malnutrition Hypokalemia Hypomagnesemia Hypernatremia No code Plan: Continue on current medication regime, monitoring and symptomatic treatment. ICU management as per solution lead.cultures in progress, continues on Zosyn. Potential vent weaning trials today as per pulmonary. The impression and plan of care has been dictated as directed. : I performed a history and examination of this patient, discussed the same with the dictator. I agree with the dictator's note ,documented as a scribe. Any additional findings or plans will be noted.
[2024-08-17 16:59] LABS: Glucose,Whole Blood 163 mg/dL (70-110)
[2024-08-17 19:38] LABS: Glucose,Whole Blood 188 mg/dL (70-110)
[2024-08-17] MEDS: INSULIN DETEMIR (LEVEMIR) 100 UNIT/ML SYR SQ SCH (20:00)
[2024-08-17 23:20] LABS: Glucose,Whole Blood 165 mg/dL (70-110)
[2024-08-18 05:04] LABS: Glucose,Whole Blood 162 mg/dL (70-110)
[2024-08-18 05:21] LABS: Basophils % (A) 0 %; Eosinophils % (A) 0 %; HCT 30.5 % (34.0-46.0); HGB 9.5 gm/dL (11.4-16.0); Hypochromasia Slight; Lymphocytes # (A) 0.6 k/uL (1.0-4.8); Lymphocytes % (A) 6 %; MCH 27.2 pg (25.0-35.0); MCHC 31.3 g/dL (31.0-37.0); MCV 86.8 fL (80.0-100.0); Mean Platelet Volume 8.9; Monocytes # (A) 0.4 k/uL (0-1.0); Monocytes % (A) 3 %; Neutrophils # (A) 9.2 k/uL (1.3-7.7); Neutrophils % (A) 89 %; Platelet Count 254 k/uL (150-450); RBC 3.51 m/uL (3.80-5.40); RDW 15.6 % (11.5-15.5); WBC 10.2 k/uL (3.8-10.6)
[2024-08-18 05:39] LABS: ALT 709 U/L (4-34); AST 176 U/L (14-36); African American GFR (CKD) >90 (>60 ml/min/1.73 sqM); Albumin 2.2 g/dL (3.5-5.0); Alkaline Phosphatase 73 U/L (38-126); Anion Gap 1 mmol/L; Blood Urea Nitrogen 19 mg/dL (7-17); Calcium 7.6 mg/dL (8.4-10.2); Carbon Dioxide 26 mmol/L (22-30); Chloride 112 mmol/L (98-107); Glucose 154 mg/dL (74-99); Non-African American GFR(CKD) 90 (>60 ml/min/1.73 sqM); Potassium 3.8 mmol/L (3.5-5.1); Sodium 139 mmol/L (137-145); Total Bilirubin 0.3 mg/dL (0.2-1.3); Total Protein 4.2 g/dL (6.3-8.2)
[2024-08-18 05:46] LABS: ABG Base Excess 3.3 mmol/L; ABG HCO3 26 mmol/L (21-25); ABG Oxygen Saturation 96.9 % (94-97); ABG PCO2 33 mmHg (35-45); ABG PH 7.51 (7.35-7.45); ABG PO2 81 mmHg (83-108); ABG TCO2 27 mmol/L (19-24); Allen Test Performed? Yes
[2024-08-18] MEDS: HYDROmorphone 0.5 MG/0.5 ML SYRINGE IVP PRN (05:58)
[2024-08-18] MEDS: POTASSIUM BICARBONATE/CIT AC 20 MEQ TABLET.EFF NG-TUBE SCH (06:50)
--- NOTE | 2024-08-18 07:31 | XR ---
EXAMINATION TYPE: XR chest 1V portable DATE OF EXAM: 08/18/2024 COMPARISON: 08/17/2024 INDICATION: Tube placement TECHNIQUE: Single frontal view of the chest is obtained. FINDINGS: The heart size is mildly prominent. The pulmonary vasculature is normal. Right basilar infiltrates are present. Some mild infiltrates in the left midlung. Correlate for pneum onia. Continued follow-up is recommended. Endotracheal tube tip is above the gerardo. Nasogastric tube tip in left upper quadrant of the abdomen . Right central venous catheter is present distal superior vena cava. IMPRESSION: 1. Bibasilar infiltrates and mild left midlung trait. Correlate for pneumonia. Continued follow-up re commended. [facility], , 08/18/2024 7:29 AM
[2024-08-18 07:59] LABS: Glucose,Whole Blood 163 mg/dL (70-110)
[2024-08-18 09:43] LABS: ABG Base Excess 3.7 mmol/L; ABG HCO3 27 mmol/L (21-25); ABG Oxygen Saturation 96.3 % (94-97); ABG PCO2 32 mmHg (35-45); ABG PH 7.52 (7.35-7.45); ABG PO2 74 mmHg (83-108); ABG TCO2 28 mmol/L (19-24); Allen Test Performed? Yes
--- NOTE | 2024-08-18 10:11 | P.PN ---
Subjective Progress Note Date: 08/18/24 Respiratory failure. Is a 78-year-old female with history of multiple medical problems including asthma, hypertension, diabetes, dyslipidemia, obstructive sleep apnea syndrome, degenerative joint disease, patient presented to the ER yesterday with chief complaint of nausea vomiting and diarrhea. Patient was also complaining of some vague abdominal pain radiating to the back, shortness of breath, coffee-ground emesis, and melena. Patient apparently had chronic abdominal pain, and she had extensive abdominal workup by gastroenterology in the past. Apparently in the ER workup was done and she was found to have an extensive left lower lobe pneumonia patient had some shortness of breath, minimal cough. She was noted to have leukocytosis with WBC of 18.6 hemoglobin 10.2. She was also noted to have low potassium, and significantly elevated procalcitonin of 8.54. Patient was placed on antibiotics in the form of Rocephin and Zithromax. She was noted to be hypotensive and the patient was given a stress dose of hydrocortisone, she is normally on Cortef. Patient was admitted and this consult was initiated. Patient did not improve with fluid boluses and with hydrocortisone hence patient was placed on norepinephrine and she is presently on 0.03 mcg/kg/min, and she will be admitted to the ICU since the patient is requiring pressors. After evaluating the patient and knowing that the patient has history of renal insufficiency, I recommended Solu-Cortef 100 mg IV push every 8 hours for the next 24 hours. And will address the dose accordingly in the next 24 hours Patient was evaluated today on 08/14/2024, remains in the ICU, I saw this patient yesterday on consultation, she was hypotensive in the ER requiring norepinephrine briefly. Patient was admitted with left lower lobe pneumonia and what seems to be an relative adrenal insufficiency responded well to stress doses of hydrocortisone. Patient is now off pressors, she did receive fluid boluses, and remains on Solu-Cortef 100 mg IV push every 8 hours. Her blood pressure is much better today, patient is feeling better, breathing easier, she is empirically on antibiotics for her left lower lobe pneumonia. WBC count is 14.2 hemoglobin 10.9 basic metabolic profile is normal bicarb is 16 BUN is normal creatinine is now Reevaluated today on 08/15/2024, patient developed worsening shortness of breath this morning worsening metabolic acidosis this morning patient was also hypertensive, tachycardic, tachypneic, required intubation mechanical ventilation earlier this morning. Her ABG postintubation showed a pO2 of 129 pCO2 39 pH of 7.27. Patient is on assist-control rate of 16 tidal volume 300 FiO2 45% and PEEP of 5 hence her FiO2 was cut down to 40%, patient received 1 amp of bicarb. Patient had elevated procalcitonin level of 8.54, her antibiotics were changed from Rocephin and Zithromax to Zosyn. Patient may have sustained some aspiration pneumonia as her chest x-ray is showing worsening pneumonia in the left lower lobe and right lower lobe. She is on norepinephrine at 0.065 mcg/kg/min propofol at 35 mcg/kg/min she is also on IV fluid at 75 cc/h. Solu-Cortef was increased again to 50 mg IV push every 8 hours.WBC count is 16.7 hemoglobin is 10 her bicarb earlier on the electrolytes was only 9. And she had anion gap of 14. CODE STATUS was changed by family today to DNR CODE STATUS and I believe that is appropriate considering her multiple comorbidities. Upon my evaluation this morning in the ICU, patient was hypotensive requiring norepinephrine and she received fluid boluses patient had an arterial line and triple-lumen catheter placed immediately as she had no good peripheral access and respiratory could not even obtain ABG this morning. Patient was evaluated today on 08/16/2024, remains in the ICU. No overnight events reported. Patient remains on the mechanical ventilator at a rate of 16, tidal volume 300, FiO2 of 40%, and PEEP of 5.0. She is on propofol at 75 mcg/kg/min, receiving IV fluids at 75 cc/hr, and on norepinephrine at 0.07 mcg/kg/min. She is also on Zosyn. Her WBC count decreased from 16.7 to 9.8 this morning. Hemogobin is 10.1. Sodium increased to 149, potassium decreased to 2.7. Her AST and ALT were 1007 and 1429, respectively. Her ABGs from this morning had a pO2 of 127, pCO2 of 43, and a pH of 7.33. Since her sodium was elevated this morning, we switched her from normal saline to receiving D5W at 75ml/hr. Her Chest X ray this morning showed improving Left Lower Lobe infiltrate and improvement of previous Right Lower Lobe infiltrate. Progress note dated August 17, 2024. 78-year-old female seen in room 261. The patient remains on mechanical ventilator. She is on volume assist-control, rate 16, tidal volume 300, FiO2 35% to be dropped to 30%, PEEP of 5. Blood gases show pO2 of 122, pCO2 of 43, pH of 7.41. The patient is on propofol at 50 mcg/kg/min, fentanyl at 0.5 mcg/kg/h, and norepinephrine has been weaned off. She is getting D5W at 75 cc an hour. We will attempt to discontinue the fentanyl drip, and start her on some as needed Dilaudid. In addition, the patient is getting vital AF at 10 cc an hour, which is goal. If off propofol, and the patient is appropriate, we will attempt a spontaneous breathing trial. Current white count 9, hemoglobin 9.5, hematocrit 29.9, with a normal platelet count. Sodium 144, potassium 4.2, chlorides 117, CO2 28, BUN 25, creatinine 0.62. Glucose is 243. AST is 273. ALT is 956. Albumin is 2.1. Blood and sputum sampling is thus far negative. Chest x-ray shows some stable bibasilar infiltrates, which may reflect either atelectasis, and or pneumonia. Patient was evaluated today on 08/18/2024, remains in the ICU. No overnight events reported. Patient was noted to have some inverted T waves on EKGs per nurse. Patient remains on the mechanical ventilator on volume assist-control at a rate of 16, tidal volume 300, FiO2 of 30%, and PEEP of 5.0. She was switched to pressure control mode and will hopefully be extubated later this morning. She is getting D5W at a 75 cc an hour. Norepinephrine and propofol have been discontinued. She is also receiving Zosyn for her pneumonia. She did receive 0.5 mg dilaudid this morning. Her Chest X ray showed bibasilar infiltrates correlate for pneumonia. Her ABG showed a pO2 81, pCO2 33, and pH of 7.51 which is consistent with combined respiratory alkalosis and metabolic alkalosis. Her CMP showed Sodium of 139, Potassium 3.8, AST 176, and ALT 709. Blood and sputum sampling is thus far negative. Objective - Vital Signs Vital signs: Vital Signs Temp 99.1 F 08/18/24 08:00 Pulse 80 08/18/24 08:49 Resp 20 08/18/24 08:00 BP 140/67 08/18/24 08:00 Pulse Ox 100 08/18/24 08:00 FiO2 30 08/18/24 08:16 Intake & Output 08/17/24 08/18/24 08/18/24 18:59 06:59 18:59 Intake Total 8565.048 9715 200 Output Total 625 535 205 Balance 994.313 600 -5 Weight 57.3 kg Intake: IV 1175 925 150 Dextrose 5% in Water 1, 975 825 150 000 ml @ 75 mls/hr IV . [id number] [facility] Rx#:[id number] Piperacillin-Tazobactam 3 200 100 .375 gm In Sodium Chloride 0.9% 100 ml @ 25 mls/hr IVPB Q8HR [facility] Rx# :[id number] Intake, IV Titration 194.313 Amount Norepinephrine 4 mg In 62.369 Sodium Chloride 0.9% 250 ml @ 0.03 MCG/KG/MIN 5. 486 mls/hr IV .Q24H [facility] Rx#:[id number] Sodium Chloride 0.9% 80 28.24 ml @ 0.5 MCG/KG/HR 2.4 mls/hr IV .Q24H [facility] with fentaNYL (PF) 1,000 mcg Rx#:[id number] propofoL 1,000 mg In 103.704 Empty Bag 1 bag @ 75 MCG/ KG/MIN 21.6 mls/hr IV . Q4H38M [facility] Rx#:[id number] Tube Feeding 160 120 20 Other 90 90 30 Output: Urine 625 535 205 Other: Voiding Method Indwelling Catheter Indwelling Catheter # Bowel Movements 0 ABP, PAP, CO, CI - Last Documented Arterial Blood Pressure 126/52 - Exam GENERAL EXAM: Revealed 78-year-old female, frail looking, chronically ill, in no distress, on mechanical ventilation. Able to open eyes, but not following command. HEAD: Normocephalic/atraumatic. Endotracheal tube and orogastric tube are intact. EYES: Normal reaction of pupils, equal size. Conjunctiva pink, sclera white. NOSE: Clear with pink turbinates. THROAT: No erythema or exudates. NECK: No masses, no JVD, no thyroid enlargement, no adenopathy. CHEST: No chest wall deformity. Symmetrical expansion. LUNGS: Clear to auscultation bilaterally, no wheezing/stridor. CVS: Regular rate and rhythm, normal S1 and S2, no murmurs ABDOMEN: Soft, nontender. Nondistended. EXTREMITIES: No LE edema. SKIN: No rashes CENTRAL NERVOUS SYSTEM: Able to open eyes, but not following command. PSYCHIATRIC: Could not assess - Labs CBC & Chem 7: 08/18/24 05:04 08/18/24 05:04 Labs: Abnormal Lab Results - Last 24 Hours (Table) 08/17/24 08/17/24 08/17/24 Range/Units 12:26 16:58 19:36 RBC (3.80-5.40) m/uL Hgb (11.4-16.0) gm/dL Hct (34.0-46.0) % RDW (11.5-15.5) % Neutrophils # (1.3-7.7) k/uL Lymphocytes # (1.0-4.8) k/uL ABG pH (7.35-7.45) ABG pCO2 (35-45) mmHg ABG pO2 (83-108) mmHg ABG HCO3 (21-25) mmol/L ABG Total CO2 (19-24) mmol/L Hemoglobin (11.4-16.0) gm/dL Chloride (98-107) mmol/L BUN (7-17) mg/dL Glucose (74-99) mg/dL POC Glucose (mg/dL) 245 H 163 H 188 H (70-110) mg/dL Calcium (8.4-10.2) mg/dL AST (14-36) U/L ALT (4-34) U/L Troponin I (0.000-0.034) ng/mL Total Protein (6.3-8.2) g/dL Albumin (3.5-5.0) g/dL 08/17/24 08/18/24 08/18/24 Range/Units 23:18 05:03 05:04 RBC 3.51 L (3.80-5.40) m/uL Hgb 9.5 L (11.4-16.0) gm/dL Hct 30.5 L (34.0-46.0) % RDW 15.6 H (11.5-15.5) % Neutrophils # 9.2 H (1.3-7.7) k/uL Lymphocytes # 0.6 L (1.0-4.8) k/uL ABG pH (7.35-7.45) ABG pCO2 (35-45) mmHg ABG pO2 (83-108) mmHg ABG HCO3 (21-25) mmol/L ABG Total CO2 (19-24) mmol/L Hemoglobin (11.4-16.0) gm/dL Chloride (98-107) mmol/L BUN (7-17) mg/dL Glucose (74-99) mg/dL POC Glucose (mg/dL) 165 H 162 H (70-110) mg/dL Calcium (8.4-10.2) mg/dL AST (14-36) U/L ALT (4-34) U/L Troponin I (0.000-0.034) ng/mL Total Protein (6.3-8.2) g/dL Albumin (3.5-5.0) g/dL 08/18/24 08/18/24 08/18/24 Range/Units 05:04 05:41 07:56 RBC (3.80-5.40) m/uL Hgb (11.4-16.0) gm/dL Hct (34.0-46.0) % RDW (11.5-15.5) % Neutrophils # (1.3-7.7) k/uL Lymphocytes # (1.0-4.8) k/uL ABG pH 7.51 H (7.35-7.45) ABG pCO2 33 L (35-45) mmHg ABG pO2 81 L (83-108) mmHg ABG HCO3 26 H (21-25) mmol/L ABG Total CO2 27 H (19-24) mmol/L Hemoglobin 10.1 L (11.4-16.0) gm/dL Chloride 112 H (98-107) mmol/L BUN 19 H (7-17) mg/dL Glucose 154 H (74-99) mg/dL POC Glucose (mg/dL) 163 H (70-110) mg/dL Calcium 7.6 L (8.4-10.2) mg/dL AST 176 H (14-36) U/L ALT 709 H (4-34) U/L Troponin I (0.000-0.034) ng/mL Total Protein 4.2 L (6.3-8.2) g/dL Albumin 2.2 L (3.5-5.0) g/dL 08/18/24 Range/Units 09:00 RBC (3.80-5.40) m/uL Hgb (11.4-16.0) gm/dL Hct (34.0-46.0) % RDW (11.5-15.5) % Neutrophils # (1.3-7.7) k/uL Lymphocytes # (1.0-4.8) k/uL ABG pH (7.35-7.45) ABG pCO2 (35-45) mmHg ABG pO2 (83-108) mmHg ABG HCO3 (21-25) mmol/L ABG Total CO2 (19-24) mmol/L Hemoglobin (11.4-16.0) gm/dL Chloride (98-107) mmol/L BUN (7-17) mg/dL Glucose (74-99) mg/dL POC Glucose (mg/dL) (70-110) mg/dL Calcium (8.4-10.2) mg/dL AST (14-36) U/L ALT (4-34) U/L Troponin I 0.114 H* (0.000-0.034) ng/mL Total Protein (6.3-8.2) g/dL Albumin (3.5-5.0) g/dL Microbiology - Last 24 Hours (Table) 08/16/24 03:22 Gram Stain - Final Sputum Sputum Culture - Final Hannah albicans 08/12/24 12:36 Blood Culture - Final Blood Assessment and Plan Plan: Acute hypoxemic respiratory failure, secondary to aspiration pneumonia. Acute on chronic adrenal insufficiency, with hypotension, currently off of norepinephrine. History of coronary artery disease. History of Takotsubo syndrome. History of obstructive sleep apnea syndrome. Benign essential hypertension. Type 2 diabetes mellitus. History of gout. Hyperlipidemia. Degenerative joint disease. Plan: Plan dated August 18, 2024. The patient's hyponatremia, and hypochloremia, are improved. The patient will continue on D5W. Propofol has been discontinued. Fentanyl has been discontinued, give as needed dilaudid. She remains on tube feedings, at goal. Labs, x-rays, and medications are reviewed. We will continue to follow the patient, make recommendations. Mechanical ventilator mode switched to pressure control, will attempt a spontaneous breathing trail, and hopefully get extubated today. Additional recommendations and suggestions are forthcoming. Prognosis is guarded. Time with Patient: Less than 30
[2024-08-18 12:20] LABS: Glucose,Whole Blood 175 mg/dL (70-110)
--- NOTE | 2024-08-18 12:52 | CT ---
EXAMINATION TYPE: CT brain wo con DATE OF EXAM: 08/18/2024 COMPARISON: 09/29/2021 HISTORY: 78-year-old female confusion, NOT FOLLOWING COMMANDS TECHNIQUE: Examination was done in axial plane without intravenous contrast. Coronal and sagittal r econstructions performed. CT DLP: 1154.5 mGycm Automated exposure control for dose reduction was used. FINDINGS: There is no evidence of acute intracranial hemorrhage, acute ischemic changes, mass, mass-effect, or extra-axial fluid collection. There is no effacement of cerebral sulci or basal subarachnoid cister ns. There is moderate hydrocephalus with Miko's ratio calculated at 0.40. There is no midline shift. Garcia-white matter distinction is preserved. Mild atherosclerotic calcifications in the carotid siphons. The patient is intubated. Mild mucosal thickening ethmoid air cells and leftward nasal septal deviati on. Mastoid air cells are pneumatized. Orbits and globes are intact. IMPRESSION: 1. Moderate ventriculomegaly/hydrocephalus may in part be due to ex vacuo dilatation from cerebral at rophy. Changes have slightly increased from 09/29/2021. Correlate for a component of NPH. 2. Otherwise, no acute intracranial abnormality seen. [facility], , 08/18/2024 12:50 PM
[2024-08-18 16:12] LABS: Glucose,Whole Blood 173 mg/dL (70-110)
--- NOTE | 2024-08-18 16:17 | P.PN ---
Subjective Progress Note Date: 08/18/24 Required intubation yesterday .ventilator dependent, FiO2 40%/+5 of PEEP. Maintained on diprovan, fentanyl and Levophed drips. Yesterday chest x-ray reported bibasilar infiltrates ,antibiotics adjusted to Zosyn, possible aspiration pneumonia. Chest x-ray pending .sodium increased to 149 with IV fluids adjusted to D5W. Potassium 2.7, receiving supplementation. Bicarb 23, BUN 35, creatinine 0.77. AST 1000 07, alk phos 1429. 08/17/2024 remains vent dependent, FiO2 decreased to 30%/+5 of PEEP. Chest x-ray reporting stable bibasilar infiltrates .Levophed weaned off, continues on diprovan and fentanyl drips. Maintained on D5W, sodium decreased 144, chloride decreased 117. Afebrile, normal WBC, on Zosyn. Renal function improving, BUN 25, creatinine 0.62, bicarb 28. LFTs improving, AST decreased to 273, ALT decreased to 956. Albumin 2.1. Tolerating tube feeds at goal. 08/18/2024 Vent dependent FiO2 30%/+ 5 of PEEP. remains off of pressor support. Fentanyl drip discontinued yesterday. Sedation held this morning, CPAP attempted, patient not following commands. Head CT ordered. Telemetry sinus rhythm. Maintained on D5W, sodium 139. Objective - Vital Signs Vital signs: Vital Signs Temp 99.1 F 08/18/24 08:00 Pulse 88 08/18/24 11:38 Resp 26 H 08/18/24 11:38 BP 174/89 08/18/24 11:00 Pulse Ox 98 08/18/24 11:00 FiO2 30 08/18/24 11:11 Intake & Output 08/17/24 08/18/24 08/18/24 18:59 06:59 18:59 Intake Total 9077.992 7062 390 Output Total 625 535 405 Balance 994.313 600 -15 Weight 57.3 kg 57.3 kg Intake: IV 1175 925 300 Dextrose 5% in Water 1, 975 825 300 000 ml @ 75 mls/hr IV . [id number] RITESH Rx#:[id number] Piperacillin-Tazobactam 3 200 100 .375 gm In Sodium Chloride 0.9% 100 ml @ 25 mls/hr IVPB Q8HR RITESH Rx# :[id number] Intake, IV Titration 194.313 0 Amount Norepinephrine 4 mg In 62.369 Sodium Chloride 0.9% 250 ml @ 0.03 MCG/KG/MIN 5. 486 mls/hr IV .Q24H RITESH Rx#:[id number] Sodium Chloride 0.9% 80 28.24 ml @ 0.5 MCG/KG/HR 2.4 mls/hr IV .Q24H RITESH with fentaNYL (PF) 1,000 mcg Rx#:[id number] propofoL 1,000 mg In 103.704 0 Empty Bag 1 bag @ 75 MCG/ KG/MIN 21.6 mls/hr IV . Q4H38M RITESH Rx#:[id number] Tube Feeding 160 120 60 Other 90 90 30 Output: Urine 625 535 405 Other: Voiding Method Indwelling Catheter Indwelling Catheter Indwelling Catheter # Bowel Movements 0 ABP, PAP, CO, CI - Last Documented Arterial Blood Pressure 158/63 - Exam PHYSICAL EXAM: VITAL SIGNS: [As above] GENERAL: Sedated and intubated, no acute distress. HEENT: Normocephalic, atraumatic ,conjunctivae normal. eyes normal. NECK: Supple, no JVD. CARDIOVASCULAR: S1, S2 regular. No murmur RESPIRATION: Unlabored, equal air entry, essentially clear ABDOMEN: Soft, nontender, nondistended, positive bowel sounds LEGS: No edema. no swelling NERVOUS SYSTEM: Unable to evaluate, sedated and intubated Skin: Warm and dry, no rashes noted Microbiology - Labs CBC & Chem 7: 08/18/24 05:04 08/18/24 05:04 Labs: Abnormal Lab Results - Last 24 Hours (Table) 08/17/24 08/17/24 08/17/24 Range/Units 12:26 16:58 19:36 RBC (3.80-5.40) m/uL Hgb (11.4-16.0) gm/dL Hct (34.0-46.0) % RDW (11.5-15.5) % Neutrophils # (1.3-7.7) k/uL Lymphocytes # (1.0-4.8) k/uL ABG pH (7.35-7.45) ABG pCO2 (35-45) mmHg ABG pO2 (83-108) mmHg ABG HCO3 (21-25) mmol/L ABG Total CO2 (19-24) mmol/L Hemoglobin (11.4-16.0) gm/dL Chloride (98-107) mmol/L BUN (7-17) mg/dL Glucose (74-99) mg/dL POC Glucose (mg/dL) 245 H 163 H 188 H (70-110) mg/dL Calcium (8.4-10.2) mg/dL AST (14-36) U/L ALT (4-34) U/L Troponin I (0.000-0.034) ng/mL Total Protein (6.3-8.2) g/dL Albumin (3.5-5.0) g/dL 08/17/24 08/18/24 08/18/24 Range/Units 23:18 05:03 05:04 RBC 3.51 L (3.80-5.40) m/uL Hgb 9.5 L (11.4-16.0) gm/dL Hct 30.5 L (34.0-46.0) % RDW 15.6 H (11.5-15.5) % Neutrophils # 9.2 H (1.3-7.7) k/uL Lymphocytes # 0.6 L (1.0-4.8) k/uL ABG pH (7.35-7.45) ABG pCO2 (35-45) mmHg ABG pO2 (83-108) mmHg ABG HCO3 (21-25) mmol/L ABG Total CO2 (19-24) mmol/L Hemoglobin (11.4-16.0) gm/dL Chloride (98-107) mmol/L BUN (7-17) mg/dL Glucose (74-99) mg/dL POC Glucose (mg/dL) 165 H 162 H (70-110) mg/dL Calcium (8.4-10.2) mg/dL AST (14-36) U/L ALT (4-34) U/L Troponin I (0.000-0.034) ng/mL Total Protein (6.3-8.2) g/dL Albumin (3.5-5.0) g/dL 08/18/24 08/18/24 08/18/24 Range/Units 05:04 05:41 07:56 RBC (3.80-5.40) m/uL Hgb (11.4-16.0) gm/dL Hct (34.0-46.0) % RDW (11.5-15.5) % Neutrophils # (1.3-7.7) k/uL Lymphocytes # (1.0-4.8) k/uL ABG pH 7.51 H (7.35-7.45) ABG pCO2 33 L (35-45) mmHg ABG pO2 81 L (83-108) mmHg ABG HCO3 26 H (21-25) mmol/L ABG Total CO2 27 H (19-24) mmol/L Hemoglobin 10.1 L (11.4-16.0) gm/dL Chloride 112 H (98-107) mmol/L BUN 19 H (7-17) mg/dL Glucose 154 H (74-99) mg/dL POC Glucose (mg/dL) 163 H (70-110) mg/dL Calcium 7.6 L (8.4-10.2) mg/dL AST 176 H (14-36) U/L ALT 709 H (4-34) U/L Troponin I (0.000-0.034) ng/mL Total Protein 4.2 L (6.3-8.2) g/dL Albumin 2.2 L (3.5-5.0) g/dL 08/18/24 Range/Units 09:00 RBC (3.80-5.40) m/uL Hgb (11.4-16.0) gm/dL Hct (34.0-46.0) % RDW (11.5-15.5) % Neutrophils # (1.3-7.7) k/uL Lymphocytes # (1.0-4.8) k/uL ABG pH (7.35-7.45) ABG pCO2 (35-45) mmHg ABG pO2 (83-108) mmHg ABG HCO3 (21-25) mmol/L ABG Total CO2 (19-24) mmol/L Hemoglobin (11.4-16.0) gm/dL Chloride (98-107) mmol/L BUN (7-17) mg/dL Glucose (74-99) mg/dL POC Glucose (mg/dL) (70-110) mg/dL Calcium (8.4-10.2) mg/dL AST (14-36) U/L ALT (4-34) U/L Troponin I 0.114 H* (0.000-0.034) ng/mL Total Protein (6.3-8.2) g/dL Albumin (3.5-5.0) g/dL Microbiology - Last 24 Hours (Table) 08/16/24 03:22 Gram Stain - Final Sputum Sputum Culture - Final Hannah albicans 08/12/24 12:36 Blood Culture - Final Blood Assessment and Plan Assessment: Sepsis secondary to acute left lower lobe pneumonia, community-acquired. Chest x-ray on 08/15/2024 reported bibasilar infiltrates, aspiration pneumonia as per p ulmonary. Procalcitonin 8.54 Hypotension and tachycardia secondary to the above, adrenal insufficiency, status post pressor dependent. Acute hypoxic respiratory failure secondary to all the above, mechanical ventilator dependent Diabetes mellitus II, hemoglobin A1c 7.6 Acute on chronic adrenal insufficiency History of nonischemic cardiomyopathy EF 20-25% taku subo syndrome Mild to moderate pulmonary hypertension Chronic paroxysmal atrial fibrillation Hypertension Hyperlipidemia Gastroesophageal reflux disease Obstructive Sleep apnea, with CPAP, at home Anxiety Mild protein calorie malnutrition Hypokalemia Hypomagnesemia Hypernatremia No code Plan: Continue on current medication regime, monitoring and symptomatic treatment. ICU management as per petroleum analyst.maintain Zosyn.vent weaning trials today as per pulmonary. Per PCP ,patient has a developmental delay /slow affect ,commonly requires slow ,clear, precise instructions. Head CT pending. The impression and plan of care has been dictated as directed. : I performed a history and examination of this patient, discussed the same with the dictator. I agree with the dictator's note ,documented as a scribe. Any additional findings or plans will be noted.
[2024-08-18 20:08] LABS: Glucose,Whole Blood 184 mg/dL (70-110)
[2024-08-18 23:33] LABS: Glucose,Whole Blood 206 mg/dL (70-110)
[2024-08-19] MEDS: IPRATROPIUM-ALBUTEROL 3 ML NEB INHALATION PRN (00:28)
[2024-08-19 03:54] LABS: Glucose,Whole Blood 161 mg/dL (70-110)
[2024-08-19 05:28] LABS: Basophils % (A) 0 %; Eosinophils % (A) 0 %; HCT 31.8 % (34.0-46.0); HGB 10.4 gm/dL (11.4-16.0); Lymphocytes # (A) 0.7 k/uL (1.0-4.8); Lymphocytes % (A) 5 %; MCHC 32.8 g/dL (31.0-37.0); MCV 85.5 fL (80.0-100.0); Mean Platelet Volume 8.5; Monocytes # (A) 0.6 k/uL (0-1.0); Monocytes % (A) 4 %; Neutrophils % (A) 90 %; Platelet Count 299 k/uL (150-450); RBC 3.72 m/uL (3.80-5.40); RDW 15.9 % (11.5-15.5); WBC 14.4 k/uL (3.8-10.6)
[2024-08-19 05:30] LABS: ABG Base Excess 5.4 mmol/L; ABG HCO3 28 mmol/L (21-25); ABG Oxygen Saturation 98.4 % (94-97); ABG PCO2 32 mmHg (35-45); ABG PH 7.55 (7.35-7.45); ABG PO2 103 mmHg (83-108); ABG TCO2 29 mmol/L (19-24); Allen Test Performed? Yes
[2024-08-19 05:53] LABS: African American GFR (CKD) >90 (>60 ml/min/1.73 sqM); Anion Gap 2 mmol/L; Blood Urea Nitrogen 14 mg/dL (7-17); Calcium 8.2 mg/dL (8.4-10.2); Carbon Dioxide 29 mmol/L (22-30); Chloride 108 mmol/L (98-107); Glucose 157 mg/dL (74-99); Non-African American GFR(CKD) >90 (>60 ml/min/1.73 sqM); Potassium 3.1 mmol/L (3.5-5.1); Sodium 139 mmol/L (137-145)
[2024-08-19] MEDS: POTASSIUM CHLORIDE ER 20 MEQ TAB.ER PO SCH (06:33)
--- NOTE | 2024-08-19 07:43 | XR ---
EXAMINATION TYPE: XR chest 1V portable DATE OF EXAM: 08/19/2024 COMPARISON: 08/18/2024 INDICATION: Assess lungs, previous abnormal chest x-ray TECHNIQUE: Single frontal view of the chest is obtained. FINDINGS: The heart size is mildly prominent. The pulmonary vasculature is normal. Mild bibasilar infiltrates are present, diminished from comparison IMPRESSION: 1. Improving bibasilar infiltrates. Correlate for atelectasis and pneumonia. [facility], , 08/19/2024 7:40 AM
[2024-08-19 07:48] LABS: Glucose,Whole Blood 190 mg/dL (70-110)
--- NOTE | 2024-08-19 10:24 | P.PN ---
Subjective Progress Note Date: 08/19/24 Respiratory failure. Is a 78-year-old female with history of multiple medical problems including asthma, hypertension, diabetes, dyslipidemia, obstructive sleep apnea syndrome, degenerative joint disease, patient presented to the ER yesterday with chief complaint of nausea vomiting and diarrhea. Patient was also complaining of some vague abdominal pain radiating to the back, shortness of breath, coffee-ground emesis, and melena. Patient apparently had chronic abdominal pain, and she had extensive abdominal workup by gastroenterology in the past. Apparently in the ER workup was done and she was found to have an extensive left lower lobe pneumonia patient had some shortness of breath, minimal cough. She was noted to have leukocytosis with WBC of 18.6 hemoglobin 10.2. She was also noted to have low potassium, and significantly elevated procalcitonin of 8.54. Patient was placed on antibiotics in the form of Rocephin and Zithromax. She was noted to be hypotensive and the patient was given a stress dose of hydrocortisone, she is normally on Cortef. Patient was admitted and this consult was initiated. Patient did not improve with fluid boluses and with hydrocortisone hence patient was placed on norepinephrine and she is presently on 0.03 mcg/kg/min, and she will be admitted to the ICU since the patient is requiring pressors. After evaluating the patient and knowing that the patient has history of renal insufficiency, I recommended Solu-Cortef 100 mg IV push every 8 hours for the next 24 hours. And will address the dose accordingly in the next 24 hours Patient was evaluated today on 08/14/2024, remains in the ICU, I saw this patient yesterday on consultation, she was hypotensive in the ER requiring norepinephrine briefly. Patient was admitted with left lower lobe pneumonia and what seems to be an relative adrenal insufficiency responded well to stress doses of hydrocortisone. Patient is now off pressors, she did receive fluid boluses, and remains on Solu-Cortef 100 mg IV push every 8 hours. Her blood pressure is much better today, patient is feeling better, breathing easier, she is empirically on antibiotics for her left lower lobe pneumonia. WBC count is 14.2 hemoglobin 10.9 basic metabolic profile is normal bicarb is 16 BUN is normal creatinine is now Reevaluated today on 08/15/2024, patient developed worsening shortness of breath this morning worsening metabolic acidosis this morning patient was also hypertensive, tachycardic, tachypneic, required intubation mechanical ventilation earlier this morning. Her ABG postintubation showed a pO2 of 129 pCO2 39 pH of 7.27. Patient is on assist-control rate of 16 tidal volume 300 FiO2 45% and PEEP of 5 hence her FiO2 was cut down to 40%, patient received 1 amp of bicarb. Patient had elevated procalcitonin level of 8.54, her antibiotics were changed from Rocephin and Zithromax to Zosyn. Patient may have sustained some aspiration pneumonia as her chest x-ray is showing worsening pneumonia in the left lower lobe and right lower lobe. She is on norepinephrine at 0.065 mcg/kg/min propofol at 35 mcg/kg/min she is also on IV fluid at 75 cc/h. Solu-Cortef was increased again to 50 mg IV push every 8 hours.WBC count is 16.7 hemoglobin is 10 her bicarb earlier on the electrolytes was only 9. And she had anion gap of 14. CODE STATUS was changed by family today to DNR CODE STATUS and I believe that is appropriate considering her multiple comorbidities. Upon my evaluation this morning in the ICU, patient was hypotensive requiring norepinephrine and she received fluid boluses patient had an arterial line and triple-lumen catheter placed immediately as she had no good peripheral access and respiratory could not even obtain ABG this morning. Patient was evaluated today on 08/16/2024, remains in the ICU. No overnight events reported. Patient remains on the mechanical ventilator at a rate of 16, tidal volume 300, FiO2 of 40%, and PEEP of 5.0. She is on propofol at 75 mcg/kg/min, receiving IV fluids at 75 cc/hr, and on norepinephrine at 0.07 mcg/kg/min. She is also on Zosyn. Her WBC count decreased from 16.7 to 9.8 this morning. Hemogobin is 10.1. Sodium increased to 149, potassium decreased to 2.7. Her AST and ALT were 1007 and 1429, respectively. Her ABGs from this morning had a pO2 of 127, pCO2 of 43, and a pH of 7.33. Since her sodium was elevated this morning, we switched her from normal saline to receiving D5W at 75ml/hr. Her Chest X ray this morning showed improving Left Lower Lobe infiltrate and improvement of previous Right Lower Lobe infiltrate. Progress note dated August 17, 2024. 78-year-old female seen in room 261. The patient remains on mechanical ventilator. She is on volume assist-control, rate 16, tidal volume 300, FiO2 35% to be dropped to 30%, PEEP of 5. Blood gases show pO2 of 122, pCO2 of 43, pH of 7.41. The patient is on propofol at 50 mcg/kg/min, fentanyl at 0.5 mcg/kg/h, and norepinephrine has been weaned off. She is getting D5W at 75 cc an hour. We will attempt to discontinue the fentanyl drip, and start her on some as needed Dilaudid. In addition, the patient is getting vital AF at 10 cc an hour, which is goal. If off propofol, and the patient is appropriate, we will attempt a spontaneous breathing trial. Current white count 9, hemoglobin 9.5, hematocrit 29.9, with a normal platelet count. Sodium 144, potassium 4.2, chlorides 117, CO2 28, BUN 25, creatinine 0.62. Glucose is 243. AST is 273. ALT is 956. Albumin is 2.1. Blood and sputum sampling is thus far negative. Chest x-ray shows some stable bibasilar infiltrates, which may reflect either atelectasis, and or pneumonia. Patient was evaluated today on 08/18/2024, remains in the ICU. No overnight events reported. Patient was noted to have some inverted T waves on EKGs per nurse. Patient remains on the mechanical ventilator on volume assist-control at a rate of 16, tidal volume 300, FiO2 of 30%, and PEEP of 5.0. She was switched to pressure control mode and will hopefully be extubated later this morning. She is getting D5W at a 75 cc an hour. Norepinephrine and propofol have been discontinued. She is also receiving Zosyn for her pneumonia. She did receive 0.5 mg dilaudid this morning. Her Chest X ray showed bibasilar infiltrates correlate for pneumonia. Her ABG showed a pO2 81, pCO2 33, and pH of 7.51 which is consistent with combined respiratory alkalosis and metabolic alkalosis. Her CMP showed Sodium of 139, Potassium 3.8, AST 176, and ALT 709. Blood and sputum sampling is thus far negative. Patient was evaluated today on 08/19/2024, remains in the ICU. No overnight events reported. Patient remains on the mechanical ventilator on volume assist- control at a rate of 16, tidal volume 300, FiO2 30%, and PEEP of 5.0. She was getting D5W at 75 cc an hour but was found to be hypertensive so rate now has been decreased to 20 cc an hour. She is on propofol at 15 mcg/kg/min and zosyn for her pneumonia. Brain CT done on 08/18 showed moderate ventr iculomegaly/hydrocephalus, correlate for a component of NPH. Her CXR on 08/19 showed improving bibasilar infiltrates. Her ABGs showed a pO2 103, pCO2 32, and pH of 7.55, which is consistent with combined respiratory alkalosis and metabolic alkalosis. Her CMP showed Sodium of 139, potassium of 3.1, Calcium of 8.2. Blood culture has been negative, but sputum culture showed hannah on 08/16. Objective - Vital Signs Vital signs: Vital Signs Temp 99.1 F 08/19/24 08:00 Pulse 80 08/19/24 08:22 Resp 17 08/19/24 08:00 BP 149/82 08/19/24 08:00 Pulse Ox 99 08/19/24 08:00 FiO2 30 08/19/24 08:00 Intake & Output 08/18/24 08/19/24 08/19/24 18:59 06:59 18:59 Intake Total 6205.521 7464.912 135 Output Total 1155 1650 125 Balance 72.856 34.912 10 Weight 57.3 kg 58.1 kg 56.7 kg Intake: IV 900 1111 78 Dextrose 5% in Water 1, 900 975 75 000 ml @ 75 mls/hr IV . [id number] RITESH Rx#:[id number] Piperacillin-Tazobactam 3 100 .375 gm In Sodium Chloride 0.9% 100 ml @ 25 mls/hr IVPB Q8HR RITESH Rx# :[id number] Pressure Bag 36 3 Intake, IV Titration 17.856 42.912 Amount propofoL 1,000 mg In 17.856 42.912 Empty Bag 1 bag @ 75 MCG/ KG/MIN 21.6 mls/hr IV . Q4H38M RITESH Rx#:[id number] Tube Feeding 220 351 27 Other 90 180 30 Output: Urine 1155 1650 125 Other: Voiding Method Indwelling Catheter Indwelling Catheter Indwelling Catheter # Bowel Movements 1 ABP, PAP, CO, CI - Last Documented Arterial Blood Pressure 160/57 - Exam GENERAL EXAM: Revealed 78-year-old female, frail looking, chronically ill, in no distress, on mechanical ventilation. HEAD: Normocephalic/atraumatic. Endotracheal tube and orogastric tube are intact. EYES: Normal reaction of pupils, equal size. Conjunctiva pink, sclera white. NOSE: Clear with pink turbinates. THROAT: No erythema or exudates. NECK: No masses, no JVD, no thyroid enlargement, no adenopathy. CHEST: No chest wall deformity. Symmetrical expansion. LUNGS: Clear to auscultation bilaterally, no wheezing/stridor. CVS: Regular rate and rhythm, normal S1 and S2, no murmurs ABDOMEN: Soft, nontender. Nondistended. EXTREMITIES: No LE edema. SKIN: No rashes CENTRAL NERVOUS SYSTEM: Eyes closed today, not following command. PSYCHIATRIC: Could not assess - Labs CBC & Chem 7: 08/19/24 04:50 08/19/24 04:50 Labs: Abnormal Lab Results - Last 24 Hours (Table) 08/18/24 08/18/24 08/18/24 Range/Units 09:36 12:18 16:10 WBC (3.8-10.6) k/uL RBC (3.80-5.40) m/uL Hgb (11.4-16.0) gm/dL Hct (34.0-46.0) % RDW (11.5-15.5) % Neutrophils # (1.3-7.7) k/uL Lymphocytes # (1.0-4.8) k/uL ABG pH 7.52 H (7.35-7.45) ABG pCO2 32 L (35-45) mmHg ABG pO2 74 L (83-108) mmHg ABG HCO3 27 H (21-25) mmol/L ABG Total CO2 28 H (19-24) mmol/L ABG O2 Saturation (94-97) % Hemoglobin 10.1 L (11.4-16.0) gm/dL Potassium (3.5-5.1) mmol/L Chloride (98-107) mmol/L Glucose (74-99) mg/dL POC Glucose (mg/dL) 175 H 173 H (70-110) mg/dL Calcium (8.4-10.2) mg/dL 08/18/24 08/18/24 08/19/24 Range/Units 20:06 23:31 03:52 WBC (3.8-10.6) k/uL RBC (3.80-5.40) m/uL Hgb (11.4-16.0) gm/dL Hct (34.0-46.0) % RDW (11.5-15.5) % Neutrophils # (1.3-7.7) k/uL Lymphocytes # (1.0-4.8) k/uL ABG pH (7.35-7.45) ABG pCO2 (35-45) mmHg ABG pO2 (83-108) mmHg ABG HCO3 (21-25) mmol/L ABG Total CO2 (19-24) mmol/L ABG O2 Saturation (94-97) % Hemoglobin (11.4-16.0) gm/dL Potassium (3.5-5.1) mmol/L Chloride (98-107) mmol/L Glucose (74-99) mg/dL POC Glucose (mg/dL) 184 H 206 H 161 H (70-110) mg/dL Calcium (8.4-10.2) mg/dL 08/19/24 08/19/24 08/19/24 Range/Units 04:50 04:50 05:28 WBC 14.4 H (3.8-10.6) k/uL RBC 3.72 L (3.80-5.40) m/uL Hgb 10.4 L (11.4-16.0) gm/dL Hct 31.8 L (34.0-46.0) % RDW 15.9 H (11.5-15.5) % Neutrophils # 13.0 H (1.3-7.7) k/uL Lymphocytes # 0.7 L (1.0-4.8) k/uL ABG pH 7.55 H (7.35-7.45) ABG pCO2 32 L (35-45) mmHg ABG pO2 (83-108) mmHg ABG HCO3 28 H (21-25) mmol/L ABG Total CO2 29 H (19-24) mmol/L ABG O2 Saturation 98.4 H (94-97) % Hemoglobin 10.2 L (11.4-16.0) gm/dL Potassium 3.1 L (3.5-5.1) mmol/L Chloride 108 H (98-107) mmol/L Glucose 157 H (74-99) mg/dL POC Glucose (mg/dL) (70-110) mg/dL Calcium 8.2 L (8.4-10.2) mg/dL 08/19/24 Range/Units 07:47 WBC (3.8-10.6) k/uL RBC (3.80-5.40) m/uL Hgb (11.4-16.0) gm/dL Hct (34.0-46.0) % RDW (11.5-15.5) % Neutrophils # (1.3-7.7) k/uL Lymphocytes # (1.0-4.8) k/uL ABG pH (7.35-7.45) ABG pCO2 (35-45) mmHg ABG pO2 (83-108) mmHg ABG HCO3 (21-25) mmol/L ABG Total CO2 (19-24) mmol/L ABG O2 Saturation (94-97) % Hemoglobin (11.4-16.0) gm/dL Potassium (3.5-5.1) mmol/L Chloride (98-107) mmol/L Glucose (74-99) mg/dL POC Glucose (mg/dL) 190 H (70-110) mg/dL Calcium (8.4-10.2) mg/dL Microbiology - Last 24 Hours (Table) 08/18/24 15:30 Gram Stain - Preliminary Sputum 08/16/24 03:22 Gram Stain - Final Sputum Sputum Culture - Final Hannah albicans Assessment and Plan Assessment: Acute hypoxemic respiratory failure, secondary to aspiration pneumonia. Acute on chronic adrenal insufficiency, with hypotension, currently off of norepinephrine. History of coronary artery disease. History of Takotsubo syndrome. History of obstructive sleep apnea syndrome. Benign essential hypertension. Type 2 diabetes mellitus. History of gout. Hyperlipidemia. Degenerative joint disease. Plan: Plan dated August 19, 2024. The patient's hyponatremia, and hypochloremia, are improved. The patient will continue on D5W. Fentanyl has been discontinued, give as needed dilaudid. She remains on tube feedings, at goal. Labs, x-rays, and medications are reviewed. We will continue to follow the patient, make recommendations. Give one time 40 mg lasix IV push Discontinue levophed, vitamin D3, Solu-cortef, tramadol, nitroglycerin, sucralfate Switch mechanical ventilator to pressure control, will attempt a spontaneous breathing trial today with a pressure of 5 and a CPAP of 5. Additional recommendations and suggestions are forthcoming. Prognosis is guarded. Time with Patient: Less than 30
[2024-08-19] MEDS: FUROSEMIDE 10 MG/ML 4 ML VIAL IV STA (10:32)
[2024-08-19] MEDS: DEXTROSE 5% IN WATER 1,000 ML IV SCH (10:32)
[2024-08-19 10:56] LABS: ABG Base Excess 6.6 mmol/L; ABG HCO3 29 mmol/L (21-25); ABG Oxygen Saturation 96.5 % (94-97); ABG PCO2 31 mmHg (35-45); ABG PO2 76 mmHg (83-108); ABG TCO2 30 mmol/L (19-24)
[2024-08-19 10:58] LABS: ABG PH 7.57 (7.35-7.45)
[2024-08-19 11:35] LABS: Glucose,Whole Blood 135 mg/dL (70-110)
[2024-08-19] MEDS: POTASSIUM CHLORIDE 20 MEQ in WATER FOR INJECTION 1 100ML.BAG IVPB SCH ×2 (12:59→21:08)
[2024-08-19 18:03] LABS: Glucose,Whole Blood 129 mg/dL (70-110)
[2024-08-19] MEDS: HEPARIN SODIUM,PORCINE 5,000 UNIT/ML 1 ML VIAL SQ SCH (21:07)
[2024-08-20 00:10] LABS: Glucose,Whole Blood 129 mg/dL (70-110)
[2024-08-20] MEDS: INSULIN ASPART (NovoLOG) 100 UNIT/ML VIAL SQ SCH (00:12)
[2024-08-20 05:17] LABS: Basophils % (A) 0 %; Eosinophils # (A) 0.2 k/uL (0-0.7); Eosinophils % (A) 1 %; HCT 35.1 % (34.0-46.0); HGB 10.9 gm/dL (11.4-16.0); Hypochromasia Slight; Lymphocytes # (A) 1.7 k/uL (1.0-4.8); Lymphocytes % (A) 12 %; MCHC 31.1 g/dL (31.0-37.0); Mean Platelet Volume 8.3; Monocytes # (A) 0.5 k/uL (0-1.0); Monocytes % (A) 3 %; Neutrophils # (A) 11.7 k/uL (1.3-7.7); Neutrophils % (A) 83 %; Platelet Count 322 k/uL (150-450); RBC 4.03 m/uL (3.80-5.40); RDW 15.7 % (11.5-15.5); WBC 14.2 k/uL (3.8-10.6)
[2024-08-20 05:27] LABS: African American GFR (CKD) >90 (>60 ml/min/1.73 sqM); Anion Gap 6 mmol/L; Blood Urea Nitrogen 17 mg/dL (7-17); Calcium 8.3 mg/dL (8.4-10.2); Carbon Dioxide 27 mmol/L (22-30); Chloride 109 mmol/L (98-107); Glucose 132 mg/dL (74-99); Non-African American GFR(CKD) 87 (>60 ml/min/1.73 sqM); Potassium 3.9 mmol/L (3.5-5.1); Sodium 142 mmol/L (137-145)
[2024-08-20] MEDS: POTASSIUM CHLORIDE 10 MEQ in WATER FOR INJECTION 1 100ML.BAG IVPB SCH (05:58)
[2024-08-20 06:02] LABS: Glucose,Whole Blood 141 mg/dL (70-110)
--- NOTE | 2024-08-20 07:36 | XR ---
EXAMINATION TYPE: XR chest 1V portable DATE OF EXAM: 08/20/2024 COMPARISON: 08/19/2024 INDICATION: Previous abnormal TECHNIQUE: Single frontal view of the chest is obtained. FINDINGS: The heart size is enlarged. The pulmonary vasculature is mildly prominent. Bibasilar infiltrates are present. Catheters on the right with the tip in the right atrium. No pneumothorax evident IMPRESSION: 1. Bibasilar infiltrates. Correlate for atelectasis or pneumonia. Continued follow-up is recommended [facility], , 08/20/2024 7:34 AM
[2024-08-20] MEDS: NITROGLYCERIN OINT 1 INCH/GM PACKET TOPICAL SCH (10:48)
--- NOTE | 2024-08-20 10:58 | P.PN ---
Subjective Progress Note Date: 08/20/24 Respiratory failure. Is a 78-year-old female with history of multiple medical problems including asthma, hypertension, diabetes, dyslipidemia, obstructive sleep apnea syndrome, degenerative joint disease, patient presented to the ER yesterday with chief complaint of nausea vomiting and diarrhea. Patient was also complaining of some vague abdominal pain radiating to the back, shortness of breath, coffee-ground emesis, and melena. Patient apparently had chronic abdominal pain, and she had extensive abdominal workup by gastroenterology in the past. Apparently in the ER workup was done and she was found to have an extensive left lower lobe pneumonia patient had some shortness of breath, minimal cough. She was noted to have leukocytosis with WBC of 18.6 hemoglobin 10.2. She was also noted to have low potassium, and significantly elevated procalcitonin of 8.54. Patient was placed on antibiotics in the form of Rocephin and Zithromax. She was noted to be hypotensive and the patient was given a stress dose of hydrocortisone, she is normally on Cortef. Patient was admitted and this consult was initiated. Patient did not improve with fluid boluses and with hydrocortisone hence patient was placed on norepinephrine and she is presently on 0.03 mcg/kg/min, and she will be admitted to the ICU since the patient is requiring pressors. After evaluating the patient and knowing that the patient has history of renal insufficiency, I recommended Solu-Cortef 100 mg IV push every 8 hours for the next 24 hours. And will address the dose accordingly in the next 24 hours Patient was evaluated today on 08/14/2024, remains in the ICU, I saw this patient yesterday on consultation, she was hypotensive in the ER requiring norepinephrine briefly. Patient was admitted with left lower lobe pneumonia and what seems to be an relative adrenal insufficiency responded well to stress doses of hydrocortisone. Patient is now off pressors, she did receive fluid boluses, and remains on Solu-Cortef 100 mg IV push every 8 hours. Her blood pressure is much better today, patient is feeling better, breathing easier, she is empirically on antibiotics for her left lower lobe pneumonia. WBC count is 14.2 hemoglobin 10.9 basic metabolic profile is normal bicarb is 16 BUN is normal creatinine is now Reevaluated today on 08/15/2024, patient developed worsening shortness of breath this morning worsening metabolic acidosis this morning patient was also hypertensive, tachycardic, tachypneic, required intubation mechanical ventilation earlier this morning. Her ABG postintubation showed a pO2 of 129 pCO2 39 pH of 7.27. Patient is on assist-control rate of 16 tidal volume 300 FiO2 45% and PEEP of 5 hence her FiO2 was cut down to 40%, patient received 1 amp of bicarb. Patient had elevated procalcitonin level of 8.54, her antibiotics were changed from Rocephin and Zithromax to Zosyn. Patient may have sustained some aspiration pneumonia as her chest x-ray is showing worsening pneumonia in the left lower lobe and right lower lobe. She is on norepinephrine at 0.065 mcg/kg/min propofol at 35 mcg/kg/min she is also on IV fluid at 75 cc/h. Solu-Cortef was increased again to 50 mg IV push every 8 hours.WBC count is 16.7 hemoglobin is 10 her bicarb earlier on the electrolytes was only 9. And she had anion gap of 14. CODE STATUS was changed by family today to DNR CODE STATUS and I believe that is appropriate considering her multiple comorbidities. Upon my evaluation this morning in the ICU, patient was hypotensive requiring norepinephrine and she received fluid boluses patient had an arterial line and triple-lumen catheter placed immediately as she had no good peripheral access and respiratory could not even obtain ABG this morning. Patient was evaluated today on 08/16/2024, remains in the ICU. No overnight events reported. Patient remains on the mechanical ventilator at a rate of 16, tidal volume 300, FiO2 of 40%, and PEEP of 5.0. She is on propofol at 75 mcg/kg/min, receiving IV fluids at 75 cc/hr, and on norepinephrine at 0.07 mcg/kg/min. She is also on Zosyn. Her WBC count decreased from 16.7 to 9.8 this morning. Hemogobin is 10.1. Sodium increased to 149, potassium decreased to 2.7. Her AST and ALT were 1007 and 1429, respectively. Her ABGs from this morning had a pO2 of 127, pCO2 of 43, and a pH of 7.33. Since her sodium was elevated this morning, we switched her from normal saline to receiving D5W at 75ml/hr. Her Chest X ray this morning showed improving Left Lower Lobe infiltrate and improvement of previous Right Lower Lobe infiltrate. Progress note dated August 17, 2024. 78-year-old female seen in room 261. The patient remains on mechanical ventilator. She is on volume assist-control, rate 16, tidal volume 300, FiO2 35% to be dropped to 30%, PEEP of 5. Blood gases show pO2 of 122, pCO2 of 43, pH of 7.41. The patient is on propofol at 50 mcg/kg/min, fentanyl at 0.5 mcg/kg/h, and norepinephrine has been weaned off. She is getting D5W at 75 cc an hour. We will attempt to discontinue the fentanyl drip, and start her on some as needed Dilaudid. In addition, the patient is getting vital AF at 10 cc an hour, which is goal. If off propofol, and the patient is appropriate, we will attempt a spontaneous breathing trial. Current white count 9, hemoglobin 9.5, hematocrit 29.9, with a normal platelet count. Sodium 144, potassium 4.2, chlorides 117, CO2 28, BUN 25, creatinine 0.62. Glucose is 243. AST is 273. ALT is 956. Albumin is 2.1. Blood and sputum sampling is thus far negative. Chest x-ray shows some stable bibasilar infiltrates, which may reflect either atelectasis, and or pneumonia. Patient was evaluated today on 08/18/2024, remains in the ICU. No overnight events reported. Patient was noted to have some inverted T waves on EKGs per nurse. Patient remains on the mechanical ventilator on volume assist-control at a rate of 16, tidal volume 300, FiO2 of 30%, and PEEP of 5.0. She was switched to pressure control mode and will hopefully be extubated later this morning. She is getting D5W at a 75 cc an hour. Norepinephrine and propofol have been discontinued. She is also receiving Zosyn for her pneumonia. She did receive 0.5 mg dilaudid this morning. Her Chest X ray showed bibasilar infiltrates correlate for pneumonia. Her ABG showed a pO2 81, pCO2 33, and pH of 7.51 which is consistent with combined respiratory alkalosis and metabolic alkalosis. Her CMP showed Sodium of 139, Potassium 3.8, AST 176, and ALT 709. Blood and sputum sampling is thus far negative. Patient was evaluated today on 08/19/2024, remains in the ICU. No overnight events reported. Patient remains on the mechanical ventilator on volume assist- control at a rate of 16, tidal volume 300, FiO2 30%, and PEEP of 5.0. She was getting D5W at 75 cc an hour but was found to be hypertensive so rate now has been decreased to 20 cc an hour. She is on propofol at 15 mcg/kg/min and zosyn for her pneumonia. Brain CT done on 08/18 showed moderate ventr iculomegaly/hydrocephalus, correlate for a component of NPH. Her CXR on 08/19 showed improving bibasilar infiltrates. Her ABGs showed a pO2 103, pCO2 32, and pH of 7.55, which is consistent with combined respiratory alkalosis and metabolic alkalosis. Her CMP showed Sodium of 139, potassium of 3.1, Calcium of 8.2. Blood culture has been negative, but sputum culture showed chasity on 08/16. Patient was evaluated today on 08/20/2024, remains in the ICU. No overnight events reported. Patient was extubated yesterday and she is now on nasal cannula at 2L/min, saturating at 99%. Patient was alert and oriented today and was able to respond to questions. She denied chest pain, shortness of breath, nausea, vomiting, or abdominal pain. Her D5W has been discontinued. She is still receiving Zosyn for her pneumonia. Her CXR on 08/20 showed bibasilar infiltrates. Her CBC showed WBC of 14.2, Hemoglobin 10.9, and platelet 322. Her CMP showed sodium of 142, and potassium of 3.9. She is stable to be transferred back to the general medical floor with no telemetry. Her blood pressure was elevated so we added Nitro-Bid ointment. Objective - Vital Signs Vital signs: Vital Signs Temp 98.3 F 08/20/24 08:00 Pulse 95 08/20/24 09:15 Resp 19 08/20/24 09:00 BP 157/80 08/20/24 09:00 Pulse Ox 99 08/20/24 09:00 FiO2 30 08/19/24 14:00 Intake & Output 08/19/24 08/20/24 08/20/24 18:59 06:59 18:59 Intake Total 611.728 576 127 Output Total 3900 535 150 Balance -3288.272 41 -23 Weight 56.7 kg 51.5 kg Intake: IV 508 576 127 0.9 KVO 20 15 Dextrose 5% in Water 1, 100 20 000 ml @ 20 mls/hr IV . Q24H [facility] Rx#:[id number] Dextrose 5% in Water 1, 175 000 ml @ 75 mls/hr IV . [id number] [facility] Rx#:[id number] Piperacillin-Tazobactam 3 100 200 .375 gm In Sodium Chloride 0.9% 100 ml @ 25 mls/hr IVPB Q8HR [facility] Rx# :[id number] Potassium Chloride 10 meq 100 100 In Water For Injection 1 100ml.bag @ 100 mls/hr IVPB Q1H [facility] Rx#: [id number] Potassium Chloride 20 meq 100 In Water For Injection 1 100ml.bag @ 50 mls/hr IVPB Q2H [facility] Rx#: [id number] Potassium Chloride 20 meq 200 In Water For Injection 1 100ml.bag @ 50 mls/hr IVPB Q2H [facility] Rx#: [id number] Pressure Bag 33 36 12 Intake, IV Titration 19.728 Amount propofoL 1,000 mg In 19.728 Empty Bag 1 bag @ 75 MCG/ KG/MIN 21.6 mls/hr IV . Q4H38M [facility] Rx#:[id number] Tube Feeding 54 Other 30 Output: Urine 3900 535 150 Other: Voiding Method Indwelling Catheter Indwelling Catheter # Bowel Movements 1 ABP, PAP, CO, CI - Last Documented Arterial Blood Pressure 158/59 - Exam GENERAL EXAM: Revealed 78-year-old female, frail looking, chronically ill, in no distress, on nasal cannula at 2L/min HEAD: Normocephalic/atraumatic. Endotracheal tube and orogastric tube are intact. EYES: Normal reaction of pupils, equal size. Conjunctiva pink, sclera white. NOSE: Clear with pink turbinates. THROAT: No erythema or exudates. NECK: No masses, no JVD, no thyroid enlargement, no adenopathy. CHEST: No chest wall deformity. Symmetrical expansion. LUNGS: Clear to auscultation bilaterally, no wheezing/stridor. CVS: Regular rate and rhythm, normal S1 and S2, no murmurs ABDOMEN: Soft, nontender. Nondistended. EXTREMITIES: No LE edema. SKIN: No rashes CENTRAL NERVOUS SYSTEM: Eyes open today, was able to answer questions PSYCHIATRIC: Did not assess - Labs CBC & Chem 7: 08/20/24 04:50 08/20/24 04:50 Labs: Abnormal Lab Results - Last 24 Hours (Table) 08/19/24 08/19/24 08/19/24 Range/Units 10:27 10:54 11:34 WBC (3.8-10.6) k/uL Hgb (11.4-16.0) gm/dL RDW (11.5-15.5) % Neutrophils # (1.3-7.7) k/uL ABG pH 7.57 H* (7.35-7.45) ABG pCO2 31 L (35-45) mmHg ABG pO2 76 L (83-108) mmHg ABG HCO3 29 H (21-25) mmol/L ABG Total CO2 30 H (19-24) mmol/L Potassium 3.1 L (3.5-5.1) mmol/L Chloride (98-107) mmol/L Glucose (74-99) mg/dL POC Glucose (mg/dL) 135 H (70-110) mg/dL Calcium (8.4-10.2) mg/dL 08/19/24 08/19/24 08/20/24 Range/Units 18:01 18:08 00:08 WBC (3.8-10.6) k/uL Hgb (11.4-16.0) gm/dL RDW (11.5-15.5) % Neutrophils # (1.3-7.7) k/uL ABG pH (7.35-7.45) ABG pCO2 (35-45) mmHg ABG pO2 (83-108) mmHg ABG HCO3 (21-25) mmol/L ABG Total CO2 (19-24) mmol/L Potassium 3.3 L (3.5-5.1) mmol/L Chloride (98-107) mmol/L Glucose (74-99) mg/dL POC Glucose (mg/dL) 129 H 129 H (70-110) mg/dL Calcium (8.4-10.2) mg/dL 08/20/24 08/20/24 08/20/24 Range/Units 04:50 04:50 06:01 WBC 14.2 H (3.8-10.6) k/uL Hgb 10.9 L (11.4-16.0) gm/dL RDW 15.7 H (11.5-15.5) % Neutrophils # 11.7 H (1.3-7.7) k/uL ABG pH (7.35-7.45) ABG pCO2 (35-45) mmHg ABG pO2 (83-108) mmHg ABG HCO3 (21-25) mmol/L ABG Total CO2 (19-24) mmol/L Potassium (3.5-5.1) mmol/L Chloride 109 H (98-107) mmol/L Glucose 132 H (74-99) mg/dL POC Glucose (mg/dL) 141 H (70-110) mg/dL Calcium 8.3 L (8.4-10.2) mg/dL Microbiology - Last 24 Hours (Table) 08/18/24 15:30 Gram Stain - Preliminary Sputum Assessment and Plan Assessment: Acute hypoxemic respiratory failure, secondary to aspiration pneumonia. Acute on chronic adrenal insufficiency, with hypotension, currently off of norepinephrine. History of coronary artery disease. History of Takotsubo syndrome. History of obstructive sleep apnea syndrome. Benign essential hypertension. Type 2 diabetes mellitus. History of gout. Hyperlipidemia. Degenerative joint disease. Plan: Plan dated August 19, 2024. The patient's hyponatremia, and hypochloremia, are improved. D5W has been discontinued. Fentanyl has been discontinued, give as needed dilaudid. She remains on tube feedings, at goal. Labs, x-rays, and medications are reviewed. Patient stable to be transferred to the general medical floor with no telemetry Patient currently on nasal cannula at 2L/min, saturating well. Patient found to be hypertensive, we prescribed nitroglycerin 1 inch topical ointment q6hr Continue Zosyn for pneumonia Time with Patient: Less than 30
[2024-08-20 11:33] LABS: Glucose,Whole Blood 117 mg/dL (70-110)
--- NOTE | 2024-08-20 12:18 | P.PN ---
Subjective Progress Note Date: 08/19/24 Required intubation yesterday .ventilator dependent, FiO2 40%/+5 of PEEP. Maintained on diprovan, fentanyl and Levophed drips. Yesterday chest x-ray reported bibasilar infiltrates ,antibiotics adjusted to Zosyn, possible aspiration pneumonia. Chest x-ray pending .sodium increased to 149 with IV fluids adjusted to D5W. Potassium 2.7, receiving supplementation. Bicarb 23, BUN 35, creatinine 0.77. AST 1000 07, alk phos 1429. 08/17/2024 remains vent dependent, FiO2 decreased to 30%/+5 of PEEP. Chest x-ray reporting stable bibasilar infiltrates .Levophed weaned off, continues on diprovan and fentanyl drips. Maintained on D5W, sodium decreased 144, chloride decreased 117. Afebrile, normal WBC, on Zosyn. Renal function improving, BUN 25, creatinine 0.62, bicarb 28. LFTs improving, AST decreased to 273, ALT decreased to 956. Albumin 2.1. Tolerating tube feeds at goal. 08/18/2024 Vent dependent FiO2 30%/+ 5 of PEEP. remains off of pressor support. Fentanyl drip discontinued yesterday. Sedation held this morning, CPAP attempted, patient not following commands. Head CT ordered. Telemetry sinus rhythm. Maintained on D5W, sodium 139. 08/19/24 yesterday questionable EKG changes, inverted T waves reported per RN, troponin 0.114-continue monitoring as per test eng.FiO2 30%/+5 of PEEP. Currently on sedation holiday. Failed breathing trials yesterday-not following commands. Discussed with staffing at bedside patient is developmentally delayed, requires slow, precise instructions and is also very hard of hearing- normally wears hearing aids-have family bring in. Hypertensive and IV fluids KVO'd. Maintained on Zosyn. Chest x-ray reporting prominent pulmonary vasculat ure, bibasilar infiltrates present. Afebrile, WBC increased to 14.4. Potassium 3.3 receiving supplements. Renal function stable. Tube feeds at goal, tolerating well with minimal to no residuals, blood sugars controlled. Objective - Vital Signs Vital signs: Vital Signs Temp 98.2 F 08/19/24 11:42 Pulse 82 08/19/24 15:06 Resp 22 08/19/24 15:00 BP 152/81 08/19/24 14:00 Pulse Ox 100 08/19/24 15:00 FiO2 30 08/19/24 14:00 Intake & Output 08/18/24 08/19/24 08/19/24 18:59 06:59 18:59 Intake Total 9774.055 0289.912 542.728 Output Total 1155 1650 2850 Balance 72.856 34.912 -2307.272 Weight 57.3 kg 58.1 kg 56.7 kg Intake: IV 900 1111 439 Dextrose 5% in Water 1, 40 000 ml @ 20 mls/hr IV . Q24H [facility] Rx#:[id number] Dextrose 5% in Water 1, 900 975 175 000 ml @ 75 mls/hr IV . [id number] [facility] Rx#:[id number] Piperacillin-Tazobactam 3 100 100 .375 gm In Sodium Chloride 0.9% 100 ml @ 25 mls/hr IVPB Q8HR [facility] Rx# :[id number] Potassium Chloride 20 meq 100 In Water For Injection 1 100ml.bag @ 50 mls/hr IVPB Q2H [facility] Rx#: [id number] Pressure Bag 36 24 Intake, IV Titration 17.856 42.912 19.728 Amount propofoL 1,000 mg In 17.856 42.912 19.728 Empty Bag 1 bag @ 75 MCG/ KG/MIN 21.6 mls/hr IV . Q4H38M [facility] Rx#:[id number] Tube Feeding 220 351 54 Other 90 180 30 Output: Urine 1155 1650 2850 Other: Voiding Method Indwelling Catheter Indwelling Catheter Indwelling Catheter # Bowel Movements 1 1 ABP, PAP, CO, CI - Last Documented Arterial Blood Pressure 150/57 - Exam PHYSICAL EXAM: VITAL SIGNS: [As above] GENERAL: Sedated and intubated, no acute distress, appears comfortable. HEENT: Normocephalic, atraumatic ,conjunctivae normal. eyes normal. NECK: Supple, no JVD. CARDIOVASCULAR: S1, S2 regular. No murmur RESPIRATION: Unlabored, equal air entry, essentially clear ABDOMEN: Soft, nontender, nondistended, positive bowel sounds LEGS: No edema. no swelling NERVOUS SYSTEM: Unable to evaluate, sedated and intubated Skin: Warm and dry, no rashes noted - Labs CBC & Chem 7: 08/20/24 04:50 08/20/24 04:50 Labs: Abnormal Lab Results - Last 24 Hours (Table) 08/18/24 08/18/24 08/18/24 Range/Units 09:36 16:10 20:06 WBC (3.8-10.6) k/uL RBC (3.80-5.40) m/uL Hgb (11.4-16.0) gm/dL Hct (34.0-46.0) % RDW (11.5-15.5) % Neutrophils # (1.3-7.7) k/uL Lymphocytes # (1.0-4.8) k/uL ABG pH 7.52 H (7.35-7.45) ABG pCO2 32 L (35-45) mmHg ABG pO2 74 L (83-108) mmHg ABG HCO3 27 H (21-25) mmol/L ABG Total CO2 28 H (19-24) mmol/L ABG O2 Saturation (94-97) % Hemoglobin 10.1 L (11.4-16.0) gm/dL Potassium (3.5-5.1) mmol/L Chloride (98-107) mmol/L Glucose (74-99) mg/dL POC Glucose (mg/dL) 173 H 184 H (70-110) mg/dL Calcium (8.4-10.2) mg/dL 08/18/24 08/19/24 08/19/24 Range/Units 23:31 03:52 04:50 WBC 14.4 H (3.8-10.6) k/uL RBC 3.72 L (3.80-5.40) m/uL Hgb 10.4 L (11.4-16.0) gm/dL Hct 31.8 L (34.0-46.0) % RDW 15.9 H (11.5-15.5) % Neutrophils # 13.0 H (1.3-7.7) k/uL Lymphocytes # 0.7 L (1.0-4.8) k/uL ABG pH (7.35-7.45) ABG pCO2 (35-45) mmHg ABG pO2 (83-108) mmHg ABG HCO3 (21-25) mmol/L ABG Total CO2 (19-24) mmol/L ABG O2 Saturation (94-97) % Hemoglobin (11.4-16.0) gm/dL Potassium (3.5-5.1) mmol/L Chloride (98-107) mmol/L Glucose (74-99) mg/dL POC Glucose (mg/dL) 206 H 161 H (70-110) mg/dL Calcium (8.4-10.2) mg/dL 08/19/24 08/19/24 08/19/24 Range/Units 04:50 05:28 07:47 WBC (3.8-10.6) k/uL RBC (3.80-5.40) m/uL Hgb (11.4-16.0) gm/dL Hct (34.0-46.0) % RDW (11.5-15.5) % Neutrophils # (1.3-7.7) k/uL Lymphocytes # (1.0-4.8) k/uL ABG pH 7.55 H (7.35-7.45) ABG pCO2 32 L (35-45) mmHg ABG pO2 (83-108) mmHg ABG HCO3 28 H (21-25) mmol/L ABG Total CO2 29 H (19-24) mmol/L ABG O2 Saturation 98.4 H (94-97) % Hemoglobin 10.2 L (11.4-16.0) gm/dL Potassium 3.1 L (3.5-5.1) mmol/L Chloride 108 H (98-107) mmol/L Glucose 157 H (74-99) mg/dL POC Glucose (mg/dL) 190 H (70-110) mg/dL Calcium 8.2 L (8.4-10.2) mg/dL 08/19/24 08/19/24 08/19/24 Range/Units 10:27 10:54 11:34 WBC (3.8-10.6) k/uL RBC (3.80-5.40) m/uL Hgb (11.4-16.0) gm/dL Hct (34.0-46.0) % RDW (11.5-15.5) % Neutrophils # (1.3-7.7) k/uL Lymphocytes # (1.0-4.8) k/uL ABG pH 7.57 H* (7.35-7.45) ABG pCO2 31 L (35-45) mmHg ABG pO2 76 L (83-108) mmHg ABG HCO3 29 H (21-25) mmol/L ABG Total CO2 30 H (19-24) mmol/L ABG O2 Saturation (94-97) % Hemoglobin (11.4-16.0) gm/dL Potassium 3.1 L (3.5-5.1) mmol/L Chloride (98-107) mmol/L Glucose (74-99) mg/dL POC Glucose (mg/dL) 135 H (70-110) mg/dL Calcium (8.4-10.2) mg/dL Microbiology - Last 24 Hours (Table) 08/18/24 15:30 Gram Stain - Preliminary Sputum Assessment and Plan Assessment: Sepsis secondary to acute left lower lobe pneumonia, community-acquired. Chest x-ray on 08/15/2024 reported bibasilar infiltrates, aspiration pneumonia as per pulmonary. Procalcitonin 8.54 Hypotension and tachycardia secondary to the above, adrenal insufficiency, status post pressor dependent. Acute hypoxic respiratory failure secondary to all the above, mechanical ventil ator dependent Diabetes mellitus II, hemoglobin A1c 7.6 Acute on chronic adrenal insufficiency History of nonischemic cardiomyopathy EF 20-25% taku subo syndrome Mild to moderate pulmonary hypertension Chronic paroxysmal atrial fibrillation Hypertension Hyperlipidemia Gastroesophageal reflux disease Obstructive Sleep apnea, with CPAP, at home Anxiety Mild protein calorie malnutrition Hypokalemia Hypomagnesemia Hypernatremia No code Developmentally delayed,[place]-wears hearing aids. Plan: Continue on current medication regime, monitoring and symptomatic treatment. ICU management as per test eng.maintain Zosyn.repeat vent weaning trials today as per pulmonary. Per PCP ,patient has a developmental delay /slow affect ,commonly requires slow ,clear, precise instructions and is hard of hear ing-needs her hearing aids. The impression and plan of care has been dictated as directed. : I performed a history and examination of this patient, discussed the same with the dictator. I agree with the dictator's note ,documented as a scribe. Any additional findings or plans will be noted.
[2024-08-20] MEDS ORDERED: ACETAMINOPHEN IV (For NPO) 1,000 MG in EMPTY BAG 1 BAG IVPB PRN (12:53)
[2024-08-20 12:54] VITALS: BMI 26.4
--- NOTE | 2024-08-20 12:59 | P.PN ---
Subjective Progress Note Date: 08/20/24 Required intubation yesterday .ventilator dependent, FiO2 40%/+5 of PEEP. Maintained on diprovan, fentanyl and Levophed drips. Yesterday chest x-ray reported bibasilar infiltrates ,antibiotics adjusted to Zosyn, possible aspiration pneumonia. Chest x-ray pending .sodium increased to 149 with IV fluids adjusted to D5W. Potassium 2.7, receiving supplementation. Bicarb 23, BUN 35, creatinine 0.77. AST 1000 07, alk phos 1429. 08/17/2024 remains vent dependent, FiO2 decreased to 30%/+5 of PEEP. Chest x-ray reporting stable bibasilar infiltrates .Levophed weaned off, continues on diprovan and fentanyl drips. Maintained on D5W, sodium decreased 144, chloride decreased 117. Afebrile, normal WBC, on Zosyn. Renal function improving, BUN 25, creatinine 0.62, bicarb 28. LFTs improving, AST decreased to 273, ALT decreased to 956. Albumin 2.1. Tolerating tube feeds at goal. 08/18/2024 Vent dependent FiO2 30%/+ 5 of PEEP. remains off of pressor support. Fentanyl drip discontinued yesterday. Sedation held this morning, CPAP attempted, patient not following commands. Head CT ordered. Telemetry sinus rhythm. Maintained on D5W, sodium 139. 08/19/24 yesterday questionable EKG changes, inverted T waves reported per RN, troponin 0.114-continue monitoring as per child advocate.FiO2 30%/+5 of PEEP. Currently on sedation holiday. Failed breathing trials yesterday-not following commands. Discussed with staffing at bedside patient is developmentally delayed, requires slow, precise instructions and is also very hard of hearing- normally wears hearing aids-have family bring in. Hypertensive and IV fluids KVO'd. Maintained on Zosyn. Chest x-ray reporting prominent pulmonary vasculat ure, bibasilar infiltrates present. Afebrile, WBC increased to 14.4. Potassium 3.3 receiving supplements. Renal function stable. Tube feeds at goal, tolerating well with minimal to no residuals, blood sugars controlled. 08/20/2024 extubated yesterday, currently maintaining O2 sats in the high 90s to 100% on 2 L nasal cannula. Failed bedside swallow, speech therapy consulted. Weak nonproductive cough.chest x-ray noted. Afebrile, Tmax 99.1, WBC 14.2. Hemoglobin 10.9, platelets 322. Renal function stable .sodium 142 .blood sugars controlled .hypertensive this morning. Objective - Vital Signs Vital signs: Vital Signs Temp 98.3 F 08/20/24 08:00 Pulse 95 08/20/24 09:15 Resp 19 08/20/24 09:00 BP 157/80 08/20/24 09:00 Pulse Ox 99 08/20/24 09:00 FiO2 30 08/19/24 14:00 Intake & Output 08/19/24 08/20/24 08/20/24 18:59 06:59 18:59 Intake Total 611.728 576 127 Output Total 3900 535 150 Balance -3288.272 41 -23 Weight 56.7 kg 51.5 kg Intake: IV 508 576 127 0.9 KVO 20 15 Dextrose 5% in Water 1, 100 20 000 ml @ 20 mls/hr IV . Q24H [facility] Rx#:[id number] Dextrose 5% in Water 1, 175 000 ml @ 75 mls/hr IV . [id number] [facility] Rx#:[id number] Piperacillin-Tazobactam 3 100 200 .375 gm In Sodium Chloride 0.9% 100 ml @ 25 mls/hr IVPB Q8HR [facility] Rx# :[id number] Potassium Chloride 10 meq 100 100 In Water For Injection 1 100ml.bag @ 100 mls/hr IVPB Q1H [facility] Rx#: [id number] Potassium Chloride 20 meq 100 In Water For Injection 1 100ml.bag @ 50 mls/hr IVPB Q2H [facility] Rx#: [id number] Potassium Chloride 20 meq 200 In Water For Injection 1 100ml.bag @ 50 mls/hr IVPB Q2H [facility] Rx#: [id number] Pressure Bag 33 36 12 Intake, IV Titration 19.728 Amount propofoL 1,000 mg In 19.728 Empty Bag 1 bag @ 75 MCG/ KG/MIN 21.6 mls/hr IV . Q4H38M [facility] Rx#:[id number] Tube Feeding 54 Other 30 Output: Urine 3900 535 150 Other: Voiding Method Indwelling Catheter Indwelling Catheter Indwelling Catheter # Bowel Movements 1 ABP, PAP, CO, CI - Last Documented Arterial Blood Pressure 158/59 - Exam PHYSICAL EXAM: VITAL SIGNS: [As above] GENERAL: Alert and oriented x 2, sitting up in bed, no acute distress, appears comfortable, cooperative, garbled speech-baseline per PCP. HEENT: Normocephalic, atraumatic ,conjunctivae normal. eyes normal. NECK: Supple, no JVD. CARDIOVASCULAR: S1, S2 regular. No murmur RESPIRATION: Unlabored, equal air entry, essentially clear, weak nonproductive cough ABDOMEN: Soft, nontender, nondistended, positive bowel sounds LEGS: No edema. no swelling, wearing offloading boots. NERVOUS SYSTEM: Alert, answering simple questions with PCP Skin: Warm and dry, no rashes noted - Labs CBC & Chem 7: 08/20/24 04:50 08/20/24 04:50 Labs: Abnormal Lab Results - Last 24 Hours (Table) 08/19/24 08/19/24 08/20/24 Range/Units 18:01 18:08 00:08 WBC (3.8-10.6) k/uL Hgb (11.4-16.0) gm/dL RDW (11.5-15.5) % Neutrophils # (1.3-7.7) k/uL Potassium 3.3 L (3.5-5.1) mmol/L Chloride (98-107) mmol/L Glucose (74-99) mg/dL POC Glucose (mg/dL) 129 H 129 H (70-110) mg/dL Calcium (8.4-10.2) mg/dL 08/20/24 08/20/24 08/20/24 Range/Units 04:50 04:50 06:01 WBC 14.2 H (3.8-10.6) k/uL Hgb 10.9 L (11.4-16.0) gm/dL RDW 15.7 H (11.5-15.5) % Neutrophils # 11.7 H (1.3-7.7) k/uL Potassium (3.5-5.1) mmol/L Chloride 109 H (98-107) mmol/L Glucose 132 H (74-99) mg/dL POC Glucose (mg/dL) 141 H (70-110) mg/dL Calcium 8.3 L (8.4-10.2) mg/dL 09/20/24 Range/Units 11:31 WBC (3.8-10.6) k/uL Hgb (11.4-16.0) gm/dL RDW (11.5-15.5) % Neutrophils # (1.3-7.7) k/uL Potassium (3.5-5.1) mmol/L Chloride (98-107) mmol/L Glucose (74-99) mg/dL POC Glucose (mg/dL) 117 H (70-110) mg/dL Calcium (8.4-10.2) mg/dL Microbiology - Last 24 Hours (Table) 08/18/24 15:30 Gram Stain - Preliminary Sputum Assessment and Plan Assessment: Sepsis secondary to acute left lower lobe pneumonia, community-acquired. Chest x-ray on 08/15/2024 reported bibasilar infiltrates, aspiration pneumonia as per pulmonary. Procalcitonin 8.54 Hypotension and tachycardia secondary to the above, adrenal insufficiency, status post pressor dependent. Acute hypoxic respiratory failure secondary to all the above, status post mechanical ventilator dependent. Diabetes mellitus II, hemoglobin A1c 7.6 Acute on chronic adrenal insufficiency History of nonischemic cardiomyopathy EF 20-25% taku subo syndrome Mild to moderate pulmonary hypertension Chronic paroxysmal atrial fibrillation Hypertension Hyperlipidemia Gastroesophageal reflux disease Obstructive Sleep apnea, with CPAP, at home Anxiety Mild protein calorie malnutrition Hypokalemia Hypomagnesemia Hypernatremia No code Developmentally delayed,EYAK-wears hearing aids. Plan: Continue on current medication regime, monitoring and symptomatic treatment. Speech therapy consult in place, recommendations pending .Strict aspiration precautions. maintain Zosyn.potential transfer out of ICU as per child advocate .Per PCP ,patient is developmental delayed /slow affect , requires slow ,clear, precise instructions and is hard of hearing-needs her hearing aids. The impression and plan of care has been dictated as directed. : I performed a history and examination of this patient, discussed the same with the dictator. I agree with the dictator's note ,documented as a scribe. Any additional findings or plans will be noted.
[2024-08-20] MEDS: METOPROLOL TARTRATE 5 MG/5 ML VIAL IVP SCH (15:46)
[2024-08-20 16:57] LABS: Glucose,Whole Blood 115 mg/dL (70-110)
[2024-08-20 23:27] LABS: Glucose,Whole Blood 123 mg/dL (70-110)
[2024-08-21 06:21] LABS: Glucose,Whole Blood 124 mg/dL (70-110)
--- NOTE | 2024-08-21 07:08 | P.PN ---
Subjective Progress Note Date: 08/21/24 Principal diagnosis: Respiratory failure. Is a 78-year-old female with history of multiple medical problems including asthma, hypertension, diabetes, dyslipidemia, obstructive sleep apnea syndrome, degenerative joint disease, patient presented to the ER yesterday with chief complaint of nausea vomiting and diarrhea. Patient was also complaining of some vague abdominal pain radiating to the back, shortness of breath, coffee-ground emesis, and melena. Patient apparently had chronic abdominal pain, and she had extensive abdominal workup by gastroenterology in the past. Apparently in the ER workup was done and she was found to have an extensive left lower lobe pneumonia patient had some shortness of breath, minimal cough. She was noted to have leukocytosis with WBC of 18.6 hemoglobin 10.2. She was also noted to have low potassium, and significantly elevated procalcitonin of 8.54. Patient was placed on antibiotics in the form of Rocephin and Zithromax. She was noted to be hypotensive and the patient was given a stress dose of hydrocortisone, she is normally on Cortef. Patient was admitted and this consult was initiated. Patient did not improve with fluid boluses and with hydrocortisone hence patient was placed on norepinephrine and she is presently on 0.03 mcg/kg/min, and she will be admitted to the ICU since the patient is requiring pressors. After ev aluating the patient and knowing that the patient has history of renal insufficiency, I recommended Solu-Cortef 100 mg IV push every 8 hours for the next 24 hours. And will address the dose accordingly in the next 24 hours Patient was evaluated today on 08/14/2024, remains in the ICU, I saw this patient yesterday on consultation, she was hypotensive in the ER requiring norepinephrine briefly. Patient was admitted with left lower lobe pneumonia and what seems to be an relative adrenal insufficiency responded well to stress doses of hydrocortisone. Patient is now off pressors, she did receive fluid boluses, and remains on Solu-Cortef 100 mg IV push every 8 hours. Her blood pressure is much better today, patient is feeling better, breathing easier, she is empirically on antibiotics for her left lower lobe pneumonia. WBC count is 14.2 hemoglobin 10.9 basic metabolic profile is normal bicarb is 16 BUN is normal creatinine is now Reevaluated today on 08/15/2024, patient developed worsening shortness of breath this morning worsening metabolic acidosis this morning patient was also hype rtensive, tachycardic, tachypneic, required intubation mechanical ventilation earlier this morning. Her ABG postintubation showed a pO2 of 129 pCO2 39 pH of 7.27. Patient is on assist-control rate of 16 tidal volume 300 FiO2 45% and PEEP of 5 hence her FiO2 was cut down to 40%, patient received 1 amp of bicarb. Patient had elevated procalcitonin level of 8.54, her antibiotics were changed from Rocephin and Zithromax to Zosyn. Patient may have sustained some aspiration pneumonia as her chest x-ray is showing worsening pneumonia in the left lower lobe and right lower lobe. She is on norepinephrine at 0.065 mcg/kg/min propofol at 35 mcg/kg/min she is also on IV fluid at 75 cc/h. Solu-Cortef was increased again to 50 mg IV push every 8 hours.WBC count is 16.7 hemoglobin is 10 her bicarb earlier on the electrolytes was only 9. And she had anion gap of 14. CODE STATUS was changed by family today to DNR CODE STATUS and I believe that is appropriate considering her multiple comorbidities. Upon my evaluation this morning in the ICU, patient was hypotensive requiring norepinephrine and she received fluid boluses patient had an arterial line and triple-lumen catheter placed immediately as she had no good peripheral access and respiratory could not even obtain ABG this morning. Patient was evaluated today on 08/16/2024, remains in the ICU. No overnight events reported. Patient remains on the mechanical ventilator at a rate of 16, tidal volume 300, FiO2 of 40%, and PEEP of 5.0. She is on propofol at 75 mcg/kg/min, receiving IV fluids at 75 cc/hr, and on norepinephrine at 0.07 m cg/kg/min. She is also on Zosyn. Her WBC count decreased from 16.7 to 9.8 this morning. Hemogobin is 10.1. Sodium increased to 149, potassium decreased to 2.7. Her AST and ALT were 1007 and 1429, respectively. Her ABGs from this morning had a pO2 of 127, pCO2 of 43, and a pH of 7.33. Since her sodium was elevated this morning, we switched her from normal saline to receiving D5W at 75ml/hr. Her Aure st X ray this morning showed improving Left Lower Lobe infiltrate and improvement of previous Right Lower Lobe infiltrate. Progress note dated August 17, 2024. 78-year-old female seen in room 261. The patient remains on mechanical ventilator. She is on volume assist-control, rate 16, tidal volume 300, FiO2 35% to be dropped to 30%, PEEP of 5. Blood gases show pO2 of 122, pCO2 of 43, pH of 7.41. The patient is on propofol at 50 mcg/kg/min, fentanyl at 0.5 mcg/kg/h, and norepinephrine has been weaned off. She is getting D5W at 75 cc an hour. We will attempt to discontinue the fentanyl drip, and start her on some as needed Dilaudid. In addition, the patient is getting vital AF at 10 cc an hour, which is goal. If off propofol, and the patient is appropriate, we will attempt a spontaneous breathing trial. Current white count 9, hemoglobin 9.5, hematocrit 29.9, with a normal platelet count. Sodium 144, potassium 4.2, chlorides 117, CO2 28, BUN 25, creatinine 0.62. Glucose is 243. AST is 273. ALT is 956. Albumin is 2.1. Blood and sputum sampling is thus far negative. Chest x-ray shows some stable bibasilar infiltrates, which may reflect either atelectasis, and or pneumonia. Patient was evaluated today on 08/18/2024, remains in the ICU. No overnight events reported. Patient was noted to have some inverted T waves on EKGs per nurse. Patient remains on the mechanical ventilator on volume assist-control at a rate of 16, tidal volume 300, FiO2 of 30%, and PEEP of 5.0. She was switched to pressure control mode and will hopefully be extubated later this morning. She is getting D5W at a 75 cc an hour. Norepinephrine and propofol have been discontinued. She is also receiving Zosyn for her pneumonia. She did receive 0.5 mg dilaudid this morning. Her Chest X ray showed bibasilar infiltrates correlate for pneumonia. Her ABG showed a pO2 81, pCO2 33, and pH of 7.51 which is consistent with combined respiratory alkalosis and metabolic alkalosis. Her CMP showed Sodium of 139, Potassium 3.8, AST 176, and ALT 709. Blood and sputum sampling is thus far negative. Patient was evaluated today on 08/19/2024, remains in the ICU. No overnight events reported. Patient remains on the mechanical ventilator on volume assist- control at a rate of 16, tidal volume 300, FiO2 30%, and PEEP of 5.0. She was getting D5W at 75 cc an hour but was found to be hypertensive so rate now has been decreased to 20 cc an hour. She is on propofol at 15 mcg/kg/min and zosyn for her pneumonia. Brain CT done on 08/18 showed moderate ventriculomegaly/hydrocephalus, correlate for a component of NPH. Her CXR on 08/19 showed improving bibasilar infiltrates. Her ABGs showed a pO2 103, pCO2 32, and pH of 7.55, which is consistent with combined respiratory alkalosis and metabolic alkalosis. Her CMP showed Sodium of 139, potassium of 3.1, Calcium of 8.2. Blood culture has been negative, but sputum culture showed hannah on 08/16. Patient was evaluated today on 08/20/2024, remains in the ICU. No overnight events reported. Patient was extubated yesterday and she is now on nasal cannula at 2L/min, saturating at 99%. Patient was alert and oriented today and was able to respond to questions. She denied chest pain, shortness of breath, nausea, vomiting, or abdominal pain. Her D5W has been discontinued. She is still receiving Zosyn for her pneumonia. Her CXR on 08/20 showed bibasilar infiltrates. Her CBC showed WBC of 14.2, Hemoglobin 10.9, and platelet 322. Her CMP showed sodium of 142, and potassium of 3.9. She is stable to be transferred back to the general medical floor with no telemetry. Her blood pressure was elevated so we added Nitro-Bid ointment. Progress note dated August 21, 2024. The patient was transferred out of the intensive care unit yesterday. She is seen today in room 628. She is actually awake and alert. She does recognize me. She responds appropriately. She is on 2 L of oxygen by nasal cannula. She is getting saline at 15 cc an hour. Zosyn and formoterol will be discontinued. No new labs today. Glucose today was 124. Objective - Vital Signs Vital signs: Vital Signs Temp 97.6 F 08/21/24 02:00 Pulse 90 08/21/24 02:00 Resp 20 08/21/24 02:00 BP 152/74 08/21/24 02:00 Pulse Ox 97 08/21/24 02:00 FiO2 30 08/19/24 14:00 Intake & Output 08/20/24 08/21/24 08/21/24 18:59 06:59 18:59 Intake Total 127 Output Total 151 776 Balance - -776 Weight 51.5 kg Intake: IV 127 0.9 KVO 15 Potassium Chloride 10 meq 100 In Water For Injection 1 100ml.bag @ 100 mls/hr IVPB Q1H [facility] Rx#: [id number] Pressure Bag 12 Output: Urine 150 775 Stool 1 1 Other: Voiding Method Diaper Diaper External Catheter # Voids 1 # Bowel Movements 1 ABP, PAP, CO, CI - Last Documented Arterial Blood Pressure 158/59 - Exam No acute distress, currently on 2 L nasal cannula. The patient is awake and alert. HEENT examination is grossly unremarkable. Neck supple. Full range of motion. No adenopathy thyromegaly or neck vein distention. Cardiovascular examination reveals regular rhythm rate. S1-S2 normal. No S3 or S4. No discernible murmur noted. Heart rate 90 bpm. Lungs reveal scattered rhonchi and wheezes. Breath sounds equal. Saturations are 97% on 2 L. Abdomen soft bowel sounds are heard. No masses or tenderness. Extremities are intact. No cyanosis clubbing or edema. Skin is without rash or lesion. Neurologic examination is nonfocal. - Labs CBC & Chem 7: 08/20/24 04:50 08/20/24 04:50 Labs: Abnormal Lab Results - Last 24 Hours (Table) 08/20/24 08/20/24 08/20/24 Range/Units 11:31 16:55 23:26 POC Glucose (mg/dL) 117 H 115 H 123 H (70-110) mg/dL 08/21/24 Range/Units 06:20 POC Glucose (mg/dL) 124 H (70-110) mg/dL Microbiology - Last 24 Hours (Table) 08/18/24 15:30 Gram Stain - Preliminary Sputum Sputum Culture - Preliminary Presumptive Staph aureus Hannah albicans Assessment and Plan Assessment: Acute hypoxemic respiratory failure, secondary to aspiration pneumonia. Status post successful extubation, on August 19, 2024. Acute on chronic adrenal insufficiency, with hypotension, recovered. History of coronary artery disease. History of Takotsubo syndrome. History of obstructive sleep apnea syndrome. Benign essential hypertension. Type 2 diabetes mellitus. History of gout. Hyperlipidemia. Degenerative joint disease. Plan: Plan dated August 17, 2024. The patient's hyponatremia, and hypochloremia, are improved. The patient will continue on D5W. She will continue on propofol for sedation for the time being. We will stop the fentanyl, and add as needed Dilaudid. She remains on tube feedings, at goal. Labs, x-rays, and medications are reviewed. The FiO2 is reduced from 35%, down to 30%. We will continue to follow the patient, make recommendations. If she arouses appropriately later today, off of propofol, we can attempt a spontaneous breathing trial. Additional recommendations and suggestions are forthcoming. Prognosis is guarded. Plan dated August 21, 2024. The patient was moved out of the intensive care unit yesterday. She is a DO NOT RESUSCITATE patient. She is currently on 2 L. She is seen in room 628. She is getting saline at 15 cc an hour. We we will discontinue the formoterol, and Zosyn. Labs, x-rays, and medications are reviewed. Prognosis is guarded. The patient is actually awake and alert. We will continue to follow. Her asthma is stable. Time with Patient: Less than 30
--- NOTE | 2024-08-21 07:12 | XR ---
EXAMINATION TYPE: XR chest 1V portable DATE OF EXAM: 08/21/2024 COMPARISON: 08/20/2024 INDICATION: Previous abnormal TECHNIQUE: Single frontal view of the chest is obtained. FINDINGS: The heart size is mildly prominent. The pulmonary vasculature is prominent. Left lower lobe infiltrate is present. Left Perihilar and right lower lobe infiltrates present. IMPRESSION: 1. Clinical correlation recommended for congestive heart failure. Pneumonia should be considered. [facility], , 08/21/2024 7:10 AM
[2024-08-21] MEDS: PANTOPRAZOLE 40 MG/10 ML VIAL IVP SCH (08:45)
[2024-08-21 12:22] LABS: Glucose,Whole Blood 105 mg/dL (70-110)
[2024-08-21 12:38] LABS: African American GFR (CKD) >90 (>60 ml/min/1.73 sqM); Anion Gap 10 mmol/L; Blood Urea Nitrogen 12 mg/dL (7-17); Calcium 8.6 mg/dL (8.4-10.2); Carbon Dioxide 19 mmol/L (22-30); Chloride 109 mmol/L (98-107); Glucose 107 mg/dL (74-99); Non-African American GFR(CKD) >90 (>60 ml/min/1.73 sqM); Potassium 3.5 mmol/L (3.5-5.1); Sodium 138 mmol/L (137-145)
[2024-08-21] MEDS: NITROGLYCERIN OINT 1 INCH/GM PACKET TOPICAL SCH (12:40)
--- NOTE | 2024-08-21 13:45 | P.PN ---
Subjective Progress Note Date: 08/21/24 Interval History: Required intubation yesterday .ventilator dependent, FiO2 40%/+5 of PEEP. Maintained on diprovan, fentanyl and Levophed drips. Yesterday chest x-ray reported bibasilar infiltrates ,antibiotics adjusted to Zosyn, possible aspiration pneumonia. Chest x-ray pending .sodium increased to 149 with IV fluids adjusted to D5W. Potassium 2.7, receiving supplementation. Bicarb 23, BUN 35, creatinine 0.77. AST 1000 07, alk phos 1429. 08/17/2024 remains vent dependent, FiO2 decreased to 30%/+5 of PEEP. Chest x-ray reporting stable bibasilar infiltrates .Levophed weaned off, continues on diprovan and fentanyl drips. Maintained on D5W, sodium decreased 144, chloride decreased 117. Afebrile, normal WBC, on Zosyn. Renal function improving, BUN 25, creatinine 0.62, bicarb 28. LFTs improving, AST decreased to 273, ALT decreased to 956. Albumin 2.1. Tolerating tube feeds at goal. 08/18/2024 Vent dependent FiO2 30%/+ 5 of PEEP. remains off of pressor support. Fentanyl drip discontinued yesterday. Sedation held this morning, CPAP attempted, patient not following commands. Head CT ordered. Telemetry sinus rhythm. Maintained on D5W, sodium 139. 08/19/24 yesterday questionable EKG changes, inverted T waves reported per RN, troponin 0.114-continue monitoring as per pathology teacher.FiO2 30%/+5 of PEEP. Currently on sedation holiday. Failed breathing trials yesterday-not following commands. Discussed with staffing at bedside patient is developmentally delayed, requires slow, precise instructions and is also very hard of hearing- normally wears hearing aids-have family bring in. Hypertensive and IV fluids KVO'd. Maintained on Zosyn. Chest x-ray reporting prominent pulmonary vasculature, bibasilar infiltrates present. Afebrile, WBC increased to 14.4. Potassium 3.3 receiving supplements. Renal function stable. Tube feeds at goal, tolerating well with minimal to no residuals, blood sugars controlled. 08/20/2024 extubated yesterday, currently maintaining O2 sats in the high 90s to 100% on 2 L nasal cannula. Failed bedside swallow, speech therapy consulted. Weak nonproductive cough.chest x-ray noted. Afebrile, Tmax 99.1, WBC 14.2. Hemoglobin 10.9, platelets 322. Renal function stable .sodium 142 .blood sugars controlled .hypertensive this morning. 08/21/2024--patient was seen and examined today. Awake and alert. Answering questions appropriately, on 2 L oxygen by nasal cannula. Sister at bedside. Pulmonary following, Zosyn discontinued. Labs reviewed, BMP showed sodium 138, potassium 3.5, creatinine 0.44 BUN 12. Assessment and plan: Sepsis secondary to acute left lower lobe pneumonia, community-acquired. Chest x-ray on 08/15/2024 reported bibasilar infiltrates, aspiration pneumonia as per pulmonary. Procalcitonin 8.54 Hypotension and tachycardia secondary to the above, adrenal insufficiency, status post pressor dependent. Acute hypoxic respiratory failure secondary to all the above, status post mechanical ventilator dependent. Diabetes mellitus II, hemoglobin A1c 7.6 Acute on chronic adrenal insufficiency History of nonischemic cardiomyopathy EF 20-25% taku subo syndrome Mild to moderate pulmonary hypertension Chronic paroxysmal atrial fibrillation Hypertension Hyperlipidemia Gastroesophageal reflux disease Obstructive Sleep apnea, with CPAP, at home Anxiety Mild protein calorie malnutrition Hypokalemia Hypomagnesemia Hypernatremia No code Developmentally delayed,TORRES MARTINEZ-wears hearing aids. Plan: Will continue current management, monitor vitals, monitor labs. Pulmonary following. Zosyn discontinued. Hyponatremia is improved. D5W was discontinued yesterday. Patient on tube feeding at goal. On Eliquis for chronic atrial fibrillation, heart rate is controlled. N.p.o., on tube feeds PT/OT/PIECE MARKER SMALL ARMS eval On Levemir, sliding scale insulin. Pulmonary consulted and following. DVT prophylaxis: Subcutaneous heparin PHYSICAL EXAMINATION: GENERAL: The patient is A&O x3, NAD HEENT: EOMI, Sclerae anicteric, Moist Mucous membranes Neck: Supple, Non tender, No JVD PULMONARY: Dec breath souds B/L, No wheezing, + crackles. CARDIOVASCULAR: S1, S2 present. No murmurs, rubs, or gallops. ABDOMEN: Soft, nontender, nondistended, normoactive bowel sounds. No guarding or rebound tenderness. MUSCULOSKELETAL: No edema, No cyanosis. No clubbing. Normal ROM. Intact peripheral pulses. EXTREMITIES: No cyanosis, clubbing, or pedal edema. NEUROLOGICAL: CN 2-12 grossly intact. No FND Skin: No Rash REVIEW OF SYSTEMS: CONSTITUTIONAL: No fever or chills. CARDIOVASCULAR: No chest pain, palpitations or syncope. PULMONARY: No shortness of breath, no cough, sore throat. GASTROINTESTINAL: No nausea, vomiting, diarrhea, abdominal pain. : No Dysuria, urgency, frequency. Extremities: No edema. NEUROLOGICAL: No headaches, no weakness, or numbness Dictation was produced using [employer] dictation software. please excuse any gr ammatical, word or spelling errors. Objective - Vital Signs Vital signs: Vital Signs Temp 98.7 F 08/21/24 07:35 Pulse 98 08/21/24 12:45 Resp 18 08/21/24 07:35 BP 167/92 08/21/24 07:35 Pulse Ox 99 08/21/24 07:35 FiO2 30 08/19/24 14:00 Intake & Output 08/20/24 08/21/24 08/21/24 18:59 06:59 18:59 Intake Total 127 Output Total 151 776 Balance -24 -776 Weight 51.5 kg 55 kg Intake: IV 127 0.9 KVO 15 Potassium Chloride 10 meq 100 In Water For Injection 1 100ml.bag @ 100 mls/hr IVPB Q1H [facility] Rx#: [id number] Pressure Bag 12 Output: Urine 150 775 Stool 1 1 Other: Voiding Method Diaper Diaper Diaper External Catheter External Catheter # Voids 1 # Bowel Movements 1 1 ABP, PAP, CO, CI - Last Documented Arterial Blood Pressure 158/59 - Labs CBC & Chem 7: 08/20/24 04:50 08/21/24 11:35 Labs: Abnormal Lab Results - Last 24 Hours (Table) 08/20/24 08/20/24 08/21/24 Range/Units 16:55 23:26 06:20 Chloride (98-107) mmol/L Carbon Dioxide (22-30) mmol/L Creatinine (0.52-1.04) mg/dL Glucose (74-99) mg/dL POC Glucose (mg/dL) 115 H 123 H 124 H (70-110) mg/dL 08/21/24 Range/Units 11:35 Chloride 109 H (98-107) mmol/L Carbon Dioxide 19 L (22-30) mmol/L Creatinine 0.44 L (0.52-1.04) mg/dL Glucose 107 H (74-99) mg/dL POC Glucose (mg/dL) (70-110) mg/dL Microbiology - Last 24 Hours (Table) 08/18/24 15:30 Gram Stain - Preliminary Sputum Sputum Culture - Preliminary Presumptive Staph aureus Hannah albicans
[2024-08-21 17:12] LABS: Glucose,Whole Blood 110 mg/dL (70-110)
[2024-08-21] MEDS ORDERED: VANCOMYCIN IV PER PHARMACY 1 EACH MISC MISCELLANE PRN (17:55)
[2024-08-21] MEDS: VANCOMYCIN 1,000 MG in SODIUM CHLORIDE 0.9% 250 ML IVPB SCH (18:34)
[2024-08-21 20:39] VITALS: TEMP 98.6
[2024-08-21 21:11] LABS: Glucose,Whole Blood 115 mg/dL (70-110)
[2024-08-21] MEDS: SCOPOLAMINE 1 MG/72 HR PATCH TRANSDERM SCH (23:03)
[2024-08-21] MEDS: MORPHINE SULFATE (100 MG/2 ML) 100 MG in SODIUM CHLORIDE 0.9% 100 ML IV SCH (23:12)
[2024-08-21 23:38] LABS: Basophils # (A) 0.04 X 10*3/uL (0.00-0.10); Basophils % (A) 0.3 %; Eosinophils # (A) 0.09 X 10*3/uL (0.04-0.35); Eosinophils % (A) 0.6 %; HCT 32.1 % (37.2-46.3); HGB 10.2 g/dL (12.0-15.0); Lymphocytes # (A) 1.21 X 10*3/uL (0.90-5.00); Lymphocytes % (A) 8.1 %; MCH 27.5 pg (27.0-32.0); MCHC 31.8 g/dL (32.0-37.0); MCV 86.5 FL (80.0-97.0); Mean Platelet Volume 11.5 FL (9.5-12.2); Monocytes # (A) 0.59 X 10*3/uL (0.20-1.00); NRBC Per 100 WBC 0 X 10*3/uL (0.00-0.01); Neutrophils # (A) 12.86 X 10*3/uL (1.80-7.70); Neutrophils % (A) 86.3 %; Platelet Count 294 X 10*3/uL (140-440); RBC 3.71 X 10*6/uL (4.10-5.20); RDW 15.4 % (11.5-14.5); WBC 14.89 X 10*3/uL (4.50-10.00)
[2024-08-22] MEDS: LORazepam 2 MG/ML INJ IV PRN (01:28)
[2024-08-22 03:43] VITALS: BP 178/82
[2024-08-22 06:41] VITALS: PULSE 95; RESP 15
== END 2024-08-22 11:07 | disposition expired | DRG 870 ==
LOC: EC 10:20 → 4SSUR 12:03 → 2SICU 18:22 → 6NMEDSUR 08-20 14:55
PROVIDERS: ADMIT Family Medicine; ATTEND Family Medicine
PROC: 3E033XZ Introduction of Vasopressor into Peripheral Vein, Percutaneous Approach (ICD-10-PCS; 2024-08-12)
PROC: 03H733Z Insertion of Infusion Device into Right Brachial Artery, Percutaneous Approach (ICD-10-PCS; principal; 2024-08-15)
PROC: 02HV33Z Insertion of Infusion Device into Superior Vena Cava, Percutaneous Approach (ICD-10-PCS; principal; 2024-08-15)
PROC: 0BH17EZ Insertion of Endotracheal Airway into Trachea, Via Natural or Artificial Opening (ICD-10-PCS; principal; 2024-08-15)
PROC: 5A1955Z Respiratory Ventilation, Greater than 96 Consecutive Hours (ICD-10-PCS; principal; 2024-08-15)
PROC: 5A09357 Assistance with Respiratory Ventilation, Less than 24 Consecutive Hours, Continuous Positive Airway Pressure (ICD-10-PCS; 2024-08-19)
DX: A41.9 Sepsis, unspecified organism (principal); J18.9 Pneumonia, unspecified organism; J69.0 Pneumonitis due to inhalation of food and vomit; J96.01 Acute respiratory failure with hypoxia; R65.21 Severe sepsis with septic shock; E27.40 Unspecified adrenocortical insufficiency; E44.1 Mild protein-calorie malnutrition; I42.8 Other cardiomyopathies; E87.0 Hyperosmolality and hypernatremia; E87.4 Mixed disorder of acid-base balance; G91.9 Hydrocephalus, unspecified; I51.81 Takotsubo syndrome; K92.1 Melena; Z66 Do not resuscitate; E11.649 Type 2 diabetes mellitus with hypoglycemia without coma; I27.20 Pulmonary hypertension, unspecified; I10 Essential (primary) hypertension; J45.909 Unspecified asthma, uncomplicated; E78.5 Hyperlipidemia, unspecified; E83.42 Hypomagnesemia; E87.6 Hypokalemia; Z51.5 Encounter for palliative care; F41.9 Anxiety disorder, unspecified; I25.10 Atherosclerotic heart disease of native coronary artery without angina pectoris; I48.0 Paroxysmal atrial fibrillation; K44.9 Diaphragmatic hernia without obstruction or gangrene; G47.33 Obstructive sleep apnea (adult) (pediatric); H91.90 Unspecified hearing loss, unspecified ear; K21.9 Gastro-esophageal reflux disease without esophagitis; M19.90 Unspecified osteoarthritis, unspecified site; R13.10 Dysphagia, unspecified; K57.30 Diverticulosis of large intestine without perforation or abscess without bleeding; K29.70 Gastritis, unspecified, without bleeding; R62.50 Unspecified lack of expected normal physiological development in childhood; Z96.653 Presence of artificial knee joint, bilateral; Z68.28 Body mass index [BMI] 28.0-28.9, adult; I25.2 Old myocardial infarction; Z79.01 Long term (current) use of anticoagulants; Z79.82 Long term (current) use of aspirin; Z79.83 Long term (current) use of bisphosphonates; Z79.84 Long term (current) use of oral hypoglycemic drugs; Z79.899 Other long term (current) drug therapy; Z88.2 Allergy status to sulfonamides; Z91.040 Latex allergy status; Z97.4 Presence of external hearing-aid
CPT/HCPCS: 36415; 70450; 71045; 71046; 74177; 80048; 80053; 81001; 82009; 82150; 82803; 82805; 83036; 83605; 83690; 83735; 84132; 84145; 84484; 85025; 87040; 87070; 87077; 87186; 87205; 87449; 87636; 93005; 94002; 94003; 94640; 94660; 94760; 96365; 96366; 96367; 96368; 96375; 99291